=== PATIENT | female | born 1970 | race Caucasian/White ===

== ENCOUNTER 2022-11-29 12:08 | Outpatient (OUT) | payer OTHER, SELFPAY ==
[2022-11-29 12:44] LABS: Basophils Absolute Auto 0.1 10^3/uL (0.0-0.1); Basophils Percent Auto 0.5 % (0.2-2.0); Eosinophils Absolute Auto 0.1 10^3/uL (0.0-0.7); Eosinophils Percent Auto 0.7 % (0.9-7.0); Hematocrit 36.2 % (36.0-48.0); Hemoglobin 11.7 g/dL (12.0-16.0); Immature Granulocytes Abs Auto 0.11 10^3/uL (0.00-0.03); Immature Granulocytes Pct Auto 1.1 % (0.0-0.5); Lymphocytes Absolute Auto 1.8 10^3/uL (1.2-3.8); Lymphocytes Percent Auto 18.5 % (20.5-60.0); Mean Corpuscular HGB Conc 32.3 g/dL (29.9-35.2); Mean Corpuscular Hemoglobin 29.6 pg (26.7-34.0); Mean Corpuscular Volume 91.6 fL (81.0-99.0); Mean Platelet Volume 10.3 fL (9.5-13.5); Monocytes Absolute Auto 0.7 10^3/uL (0.3-0.8); Monocytes Percent Auto 6.8 % (1.7-12.0); Neutrophils Absolute Auto 7.2 10^3/uL (1.4-6.5); Neutrophils Percent Auto 72.4 % (43.0-75.0); Platelet Count 237 10^3/uL (150-450); Red Blood Count 3.95 10^6/uL (4.20-5.40); Red Cell Distribution Width 14.3 % (11.0-15.0)
[2022-11-29 12:46] LABS: Erythrocyte Sedimentation Rate 48 mm/hr (<=30)
[2022-11-30 05:07] LABS: Antistreptolysin O Ab 316.4 IU/mL (0.0-200.0)
== END 2022-11-29 12:09 ==
LOC: LAB 12:13
PROVIDERS: PCP Family Medicine; Visit Provider Family Medicine
DX: R50.9 Fever, unspecified (principal)
CPT/HCPCS: 36415; 85025; 85652; 86060; 87040

== ENCOUNTER 2023-03-02 10:01 | Outpatient (OUT) | payer OTHER, SELFPAY ==
[2023-03-02 10:50] LABS: Basophils Absolute Auto 0.1 10^3/uL (0.0-0.1); Basophils Percent Auto 0.8 % (0.2-2.0); Eosinophils Absolute Auto 0.1 10^3/uL (0.0-0.7); Eosinophils Percent Auto 0.5 % (0.9-7.0); Hematocrit 40.8 % (36.0-48.0); Hemoglobin 12.9 g/dL (12.0-16.0); Immature Granulocytes Abs Auto 0.49 10^3/uL (0.00-0.03); Immature Granulocytes Pct Auto 4.2 % (0.0-0.5); Lymphocytes Absolute Auto 1.5 10^3/uL (1.2-3.8); Lymphocytes Percent Auto 12.6 % (20.5-60.0); Mean Corpuscular HGB Conc 31.6 g/dL (29.9-35.2); Mean Corpuscular Hemoglobin 29.4 pg (26.7-34.0); Mean Corpuscular Volume 92.9 fL (81.0-99.0); Mean Platelet Volume 10.5 fL (9.5-13.5); Monocytes Absolute Auto 0.7 10^3/uL (0.3-0.8); Monocytes Percent Auto 5.8 % (1.7-12.0); Neutrophils Absolute Auto 8.9 10^3/uL (1.4-6.5); Neutrophils Percent Auto 76.1 % (43.0-75.0); Platelet Count 270 10^3/uL (150-450); Red Blood Count 4.39 10^6/uL (4.20-5.40); Red Cell Distribution Width 14.7 % (11.0-15.0); White Blood Count 11.7 10^3/uL (4.0-11.0)
[2023-03-02 10:58] LABS: Partial Thromboplastin Time 24.8 sec (22.3-36.2)
[2023-03-02 11:00] LABS: INR <0.93
[2023-03-02 11:38] LABS: Estimated Average Glucose 114 mg/dL; Glycohemoglobin A1C 5.6 % (4.5-6.2)
[2023-03-02 11:44] LABS: Alanine Aminotransferase 28 U/L (14-59); Albumin Globulin Ratio 0.8; Albumin Level 3.1 g/dL (3.4-5.0); Alkaline Phosphatase 96 U/L (46-116); Aspartate Amino Transferase 10 U/L (15-37); BUN Creatinine Ratio 38.3; Bilirubin Total 0.3 mg/dL (0.2-1.0); C Reactive Protein 1.2 mg/dL (<=1.0); Calcium 9.3 mg/dL (8.5-10.1); Carbon Dioxide 26.8 mmol/L (21.0-32.0); Chloride 104 mmol/L (98-107); Chol HDL Ratio 3.7; Cholesterol 242 mg/dL (<=200); Estimated GFR (African America >60 (>=60); Estimated GFR (Non-African Ame >60 (>=60); Free T3 1.72 pg/mL (2.18-3.98); Globulin 3.7 g/dL; Glucose 106 mg/dL (74-106); HDL Cholesterol 66 mg/dL (40-60); Potassium 3.8 mmol/L (3.5-5.1); Sodium 140 mmol/L (136-145); Thyroid Stimulating Hormone 2.418 uIU/mL (0.358-3.740); Total Protein 6.8 g/dL (6.4-8.2); Triglycerides 107 mg/dL (<=150); VLDL CHOLESTEROL 21.4 mg/dL
[2023-03-03 09:08] LABS: Antistreptolysin O Ab 287.8 IU/mL (0.0-200.0)
[2023-03-03 12:08] LABS: Insulin 30.7 uIU/mL (2.6-24.9)
== END 2023-03-02 10:02 | disposition home or self-care (01) ==
LOC: LAB 10:03
PROVIDERS: PCP Family Medicine; Visit Provider Family Medicine
DX: E78.5 Hyperlipidemia, unspecified (principal); I10 Essential (primary) hypertension; K21.9 Gastro-esophageal reflux disease without esophagitis; R73.09 Other abnormal glucose; D64.9 Anemia, unspecified
CPT/HCPCS: 36415; 80053; 80061; 82306; 83036; 83525; 83540; 84436; 84443; 84481; 85002; 85025; 85610; 85730; 86060; 86140; 87040

== ENCOUNTER 2023-04-27 13:38 | Outpatient (OUT) | payer OTHER, SELFPAY ==
[2023-04-27 14:24] LABS: Basophils Absolute Auto 0.1 10^3/uL (0.0-0.1); Basophils Percent Auto 0.6 % (0.2-2.0); Eosinophils Absolute Auto 0.1 10^3/uL (0.0-0.7); Eosinophils Percent Auto 0.6 % (0.9-7.0); Hematocrit 38.5 % (36.0-48.0); Hemoglobin 12.5 g/dL (12.0-16.0); Immature Granulocytes Abs Auto 0.31 10^3/uL (0.00-0.03); Lymphocytes Absolute Auto 2.1 10^3/uL (1.2-3.8); Lymphocytes Percent Auto 13.5 % (20.5-60.0); Mean Corpuscular HGB Conc 32.5 g/dL (29.9-35.2); Mean Corpuscular Hemoglobin 30.7 pg (26.7-34.0); Mean Corpuscular Volume 94.6 fL (81.0-99.0); Mean Platelet Volume 10.7 fL (9.5-13.5); Monocytes Absolute Auto 0.9 10^3/uL (0.3-0.8); Monocytes Percent Auto 5.8 % (1.7-12.0); Neutrophils Absolute Auto 12.3 10^3/uL (1.4-6.5); Neutrophils Percent Auto 77.5 % (43.0-75.0); Platelet Count 259 10^3/uL (150-450); Red Blood Count 4.07 10^6/uL (4.20-5.40); Red Cell Distribution Width 15.4 % (11.0-15.0); White Blood Count 15.8 10^3/uL (4.0-11.0)
[2023-04-27 14:48] LABS: Alanine Aminotransferase 23 U/L (14-59); Albumin Globulin Ratio 0.9; Albumin Level 3.2 g/dL (3.4-5.0); Alkaline Phosphatase 94 U/L (46-116); Aspartate Amino Transferase 12 U/L (15-37); Bilirubin Direct 0.1 mg/dL (0.0-0.2); Bilirubin Total 0.5 mg/dL (0.2-1.0); Cholesterol 191 mg/dL (<=200); Globulin 3.6 g/dL; HDL Cholesterol 63 mg/dL (40-60); Thyroid Stimulating Hormone 1.597 uIU/mL (0.358-3.740); Total Protein 6.8 g/dL (6.4-8.2); Triglycerides 126 mg/dL (<=150); VLDL CHOLESTEROL 25.2 mg/dL
== END 2023-04-27 13:39 | disposition home or self-care (01) ==
LOC: LAB 13:40
PROVIDERS: PCP Family Medicine; Visit Provider Family Medicine
DX: E78.00 Pure hypercholesterolemia, unspecified (principal); R79.89 Other specified abnormal findings of blood chemistry; R76.8 Other specified abnormal immunological findings in serum; R53.83 Other fatigue
CPT/HCPCS: 36415; 80061; 80076; 84439; 84443; 85025; 86060

== ENCOUNTER 2023-05-23 07:23 | Outpatient (RCR) | payer OTHER, SELFPAY ==
[2023-05-23 14:58] LABS: Erythrocyte Sedimentation Rate 114 mm/hr (<=30)
[2023-05-23 15:03] LABS: Basophils Absolute Auto 0.1 10^3/uL (0.0-0.1); Basophils Percent Auto 0.6 % (0.2-2.0); Eosinophils Absolute Auto 0.1 10^3/uL (0.0-0.7); Eosinophils Percent Auto 0.6 % (0.9-7.0); Hematocrit 45.8 % (36.0-48.0); Hemoglobin 14.8 g/dL (12.0-16.0); Immature Granulocytes Abs Auto 0.48 10^3/uL (0.00-0.03); Immature Granulocytes Pct Auto 2.4 % (0.0-0.5); Lymphocytes Absolute Auto 2.7 10^3/uL (1.2-3.8); Lymphocytes Percent Auto 13.7 % (20.5-60.0); Mean Corpuscular HGB Conc 32.3 g/dL (29.9-35.2); Mean Corpuscular Volume 92.9 fL (81.0-99.0); Mean Platelet Volume 10.8 fL (9.5-13.5); Monocytes Absolute Auto 1.3 10^3/uL (0.3-0.8); Monocytes Percent Auto 6.7 % (1.7-12.0); Neutrophils Absolute Auto 15.2 10^3/uL (1.4-6.5); Platelet Count 336 10^3/uL (150-450); Red Blood Count 4.93 10^6/uL (4.20-5.40); Red Cell Distribution Width 14.6 % (11.0-15.0); White Blood Count 19.9 10^3/uL (4.0-11.0)
[2023-05-23 15:22] LABS: Lactate Dehydrogenase 197 U/L (81-234); Percent Iron Saturation 22.5 %
[2023-05-23 15:23] LABS: C Reactive Protein 1.56 mg/dL (<=0.50)
[2023-05-24 08:15] LABS: Rheumatoid Factor (RF) 10.6 IU/mL (<14.0)
[2023-05-24 11:09] LABS: ANA Direct Negative (Negative)
[2023-05-24 14:08] LABS: Anti-CCP Ab, IgG/IgA 2 units (0-19)
[2023-05-25 18:07] LABS: Cortisol - AM 0.7 ug/dL (6.2-19.4)
[2023-05-26 18:09] LABS: HLA B 27 Disease Association Negative (.)
--- OUTSIDE RECORDS SUMMARY | 2023-06-23 13:28 | XMS_ITS | CCD ---
Author Name Unknown Address [address] [place] [address] Organization [facility] Care Team Providers Care Physician Compensation Analyst Name Role Phone Eleuterio Carranza Primary Care [...] Unavailable HOY ., DR MCCLELLAN Attending Unavailable [place], DR MOISE Diaz Consulting Unavailable Allergies Allergy Classification Reported Allergen(s) Allergy Type Date of Onset Reaction(s) Facility (2 sources) venlafaxine; Translations: [venlafaxine] Drug Allergy Dizziness (finding) General Surgery [place] (1 source) venlafaxine Drug Allergy [facility] Repository Medications Current Medications Medication Drug Class(es) Dates Sig (Normalized) Sig (Original) acetaminophen 325 mg / HYDROcodone bitartrate 5 mg oral tablet (2 sources) Opioid Agonist Start: 03-06-2017 [place] 325 mg-5 mg oral tablet See Instructions, [...] BID, # 20 tab(s), Refills(s) 0, Pharmacy: [facility] Start Date: 07/27/18 Status: Ordered Prilosec [...] 04-01-2022 Chronic Other aftercare (1 source) Other group home (current) drug therapy; Translations: [OTH [employer]ICE CURRENT DRUG THERAPY] Onset: 10-27-2022 Episodic Other [...] PILO ELIAS Date: 2022-10-26 19:03 Normal [facility] CULTURE BLOODon 09-30-2022 Microscopic examination of blood, culture Culture Observations: NO GROWTH AT 5 DAYS. [facility] Comment on above: Performed By: #### T 7, TSH, LIPID, CMP #### [facility] [address] [place] [address] Dr. Sona Cruz Microscopic examination of blood, culture Culture Observations: NO GROWTH AT 5 DAYS. [facility] Comment on above: Performed By: #### T 7, TSH, LIPID, CMP #### [facility] [address] [place] [address] Dr. Sona Cruz CULTURE URINEon 09-30-2022 CULTURE URINE Culture Observations: NO GROWTH. Normal [facility] Comment on above: Performed By: #### T 7, TSH, LIPID, CMP #### [facility] [address] [place] [address] Dr. Sona Cruz UA RANDOM W/MICROSCOPICon BACTERIA NONE SEEN Normal NONE SEEN [facility] Comment on above: Performed By: #### T 7, TSH, LIPID, CMP #### [facility] [address] [place] [address] Dr. Sona Cruz Bilirubin Ql (U) Negative Normal NEGATIVE [facility] Comment on above: Performed By: #### T 7, TSH, LIPID, CMP #### [facility] [address] [place] [address] Dr. Sona Cruz CAST NONE SEEN Normal NONE SEEN [facility] Comment on above: Performed By: #### T 7, TSH, LIPID, CMP #### [facility] [address] [place] [address] Dr. Sona Cruz Clarity (U) CLEAR Normal CLEAR [facility] Comment on above: Performed By: #### T 7, TSH, LIPID, CMP #### [facility] [address] [place] [address] Dr. Sona Cruz Color (U) LT. YELLOW Normal YELLOW [facility] Comment on above: Performed By: #### T 7, TSH, LIPID, CMP #### [facility] [address] [address] [address] Sona Cruz Crystals LM Nom (Urine sed) SEEN Abnormal NONE SEEN [facility] Comment on above: Performed By: #### T 7, TSH, LIPID, CMP #### [facility] [address] [address] [address] Sona Cruz Epithelial cells LM Ql (Urine sed) FEW Abnormal NONE SEEN /RARE [facility] Comment on above: Performed By: #### T 7, TSH, LIPID, CMP #### [facility] [address] [address] [address] Sona Cruz Glucose Ql (U) Negative Normal NEGATIVE [facility] Comment on above: Performed By: #### T 7, TSH, LIPID, CMP #### [facility] [address] [place] [address] Dr. Sona Cruz Hemoglobin Ql (U) Negative Normal NEGATIVE [facility] Comment on above: Performed By: #### T 7, TSH, LIPID, CMP #### [facility] [address] [place] [address] Dr. Sona Cruz Ketones Ql (U) Negative Normal NEGATIVE [facility] Comment on above: Performed By: #### T 7, TSH, LIPID, CMP #### [facility] [address] [place] [address] Dr. Sona Cruz LEUKOCYTES Negative Normal NEGATIVE [facility] Comment on above: Performed By: #### T 7, TSH, LIPID, CMP #### [facility] [address] [address] [address] Sona Cruz MUCOUS NONE SEEN Normal NONE SEEN [facility] Comment on above: Performed By: #### T 7, TSH, LIPID, CMP #### [facility] [address] [place] [address] Dr. Sona Cruz Nitrite Ql (U) Negative Normal NEGATIVE [facility] Comment on above: Performed By: #### T 7, TSH, LIPID, CMP #### [facility] [address] [place] [address] Dr. Sona Cruz pH (U) 5.5 [pH] Normal 5-9 [facility] Comment on above: Performed By: #### T 7, TSH, LIPID, CMP #### [facility] [address] [place] [address] Dr. Sona Cruz RBC 0-2 Normal 0-2 [facility] Comment on above: Performed By: #### T 7, TSH, LIPID, CMP #### [facility] [address] [place] [address] Dr. Sona Cruz SPEC GRAVITY 1.025 Normal 1.005-<=1.025 [facility] Comment on above: Performed By: #### T 7, TSH, LIPID, CMP #### [facility] [address] [place] [address] Dr. Sona Cruz UA PROTEIN Negative Normal NEGATIVE/ TRACE [facility] Comment on above: Performed By: #### T 7, TSH, LIPID, CMP #### [facility] [address] [place] [address] Dr. Sona Cruz Urobilinogen Qn (U) 0.2 {Dayanna'U}/dL Normal 0.2 - 1. 0 [facility] Comment on above: Performed By: #### T 7, TSH, LIPID, CMP #### [facility] [address] [place] [address] Dr. Sona Cruz WBC 0-2 Abnormal NONE SEEN [facility] Comment on above: Performed By: #### T 7, TSH, LIPID, CMP #### [facility] [address] [place] [address] Dr. Sona Cruz VITAMIN B12on 09-30-2022 Cobalamin (Vitamin B12) [Mass/Vol] 383.0 pg/mL Normal 193.0-986.0 [facility] Comment on above: Performed By: #### V ITB12 #### [facility] [address] [place] [address] Dr. Sona Cruz DANIELLE-GARCIA VIRUS (EBV) AB PROFILEon 08-15-2022 EBV Ab VCA, IgG 71.8 U/mL Critically high 0.0-17.9 [facility] Comment on above: Result Comment: Nega tive <18.0 Equivocal 18.0 - 21.9 Positive >21.9 Performed By: #### T 7, TSH, LIPID, CMP #### [facility] [address] [address] [address] Sona Cruz EBV Ab VCA, IgM <36.0 Normal 0.0-35.9 [facility] Comment on above: Result Comment: Nega tive <36.0 Equivocal 36.0 - 43.9 Positive >43.9 Performed By: #### T 7, TSH, LIPID, CMP #### [facility] [address] [address] [address] Sona Cruz EBV Nuclear Antigen Ab, IgG 146.0 U/mL Critically high 0.0-17.9 [facility] Comment on above: Result Comment: Nega tive <18.0 Equivocal 18.0 - 21.9 Positive >21.9 Performed By: #### T 7, TSH, LIPID, CMP #### [facility] [address] [address] [address] Sona Cruz Interpretation: Comment Normal [facility] Comment on above: Result Comment: EBV [...] #### T 7, TSH, LIPID, CMP #### [facility] [address] [place] [address] Dr. Sona Cruz INSULINon 08-13-2022 Insulin 18.5 uIU/mL Normal 2.6-24.9 [facility] Comment on above: Performed By: #### T 7, TSH, LIPID, CMP #### [facility] [address] [address] [address] Sona Cruz CBC AUTO DIFFon 08-12-2022 BASO # 0.1 103/ul Normal 0.0-0.1 [facility] Comment on above: Performed By: #### T 7, TSH, LIPID, CMP #### [facility] [address] [place] [address] Dr. Sona Cruz Basophils/100 WBC (Bld) 0.5 % Normal 0.2-2.0 [facility] Comment on above: Performed By: #### T 7, TSH, LIPID, CMP #### [facility] [address] [place] [address] Dr. Sona Cruz EO # 0.1 103/ul Normal 0.0-0.7 [facility] Comment on above: Performed By: #### T 7, TSH, LIPID, CMP #### [facility] [address] [place] [address] Dr. Sona Cruz Eosinophils/100 WBC (Bld) 0.9 % Normal 0.9-7.0 [facility] Comment on above: Performed By: #### T 7, TSH, LIPID, CMP #### [facility] [address] [place] [address] Dr. Sona Cruz Erythrocyte distribution width (RBC) [Ratio] 14.4 % Normal 11.0-15.0 [facility] Comment on above: Performed By: #### T 7, TSH, LIPID, CMP #### [facility] [address] [place] [address] Dr. Sona Cruz Hematocrit (Bld) [Volume fraction] 41.8 % Normal 36.0-48.0 [facility] Comment on above: Performed By: #### T 7, TSH, LIPID, CMP #### [facility] [address] [place] [address] Dr. Sona Cruz Hemoglobin (Bld) [Mass/Vol] 14.0 g/dL Normal 12.0-16.0 [facility] Comment on above: Performed By: #### T 7, TSH, LIPID, CMP #### [facility] [address] [place] [address] Dr. Sona Cruz IG # 0.12 10e3/ul Critically high 0.00-0.03 [facility] Comment on above: Performed By: #### T 7, TSH, LIPID, CMP #### [facility] [address] [place] [address] Dr. Sona Cruz IG % 1.0 % Critically high 0.0-0.5 [facility] Comment on above: Performed By: #### T 7, TSH, LIPID, CMP #### [facility] [address] [place] [address] Dr. Sona Cruz LYMPH # 1.8 103/ul Normal 1.2-3.8 [facility] Comment on above: Performed By: #### T 7, TSH, LIPID, CMP #### [facility] [address] [place] [address] Dr. Sona Cruz Lymphocytes/100 WBC (Bld) 14.4 % Critically low 20.5-60.0 [facility] Comment on above: Performed By: #### T 7, TSH, LIPID, CMP #### [facility] [address] [place] [address] Dr. Sona Cruz MANUAL DIFF REQ NO Normal [facility] Comment on above: Performed By: #### T 7, TSH, LIPID, CMP #### [facility] [address] [place] [address] Dr. Sona Cruz MCH (RBC) [Entitic mass] 30.0 pg Normal 26.7-34.0 [facility] Comment on above: Performed By: #### T 7, TSH, LIPID, CMP #### [facility] [address] [place] [address] Dr. Sona Cruz MCHC (RBC) [Mass/Vol] 33.5 g/dL Normal 29.9-35.2 [facility] Comment on above: Performed By: #### T 7, TSH, LIPID, CMP #### [facility] [address] [place] [address] Dr. Sona Cruz MCV (RBC) [Entitic vol] 89.5 fL Normal 81.0-99.0 [facility] Comment on above: Performed By: #### T 7, TSH, LIPID, CMP #### [facility] [address] [place] [address] Dr. Sona Cruz MONO # 0.8 103/ul Normal 0.3-0.8 [facility] Comment on above: Performed By: #### T 7, TSH, LIPID, CMP #### [facility] [address] [address] [address] Sona Cruz Monocytes/100 WBC (Bld) 6.6 % Normal 1.7-12.0 [facility] Comment on above: Performed By: #### T 7, TSH, LIPID, CMP #### [facility] [address] [address] [address] Sona Cruz NEUT # 9.5 103/ul Critically high 1.4-6.5 [facility] Comment on above: Performed By: #### T 7, TSH, LIPID, CMP #### [facility] [address] [address] [address] Sona Cruz Neutrophils/100 WBC (Bld) 76.6 % Critically high 43.0-75.0 [facility] Comment on above: Performed By: #### T 7, TSH, LIPID, CMP #### [facility] [address] [place] [address] Dr. Sona Cruz Platelet mean volume (Bld) [Entitic vol] 10.5 fL Normal 9.5-13.5 [facility] Comment on above: Performed By: #### T 7, TSH, LIPID, CMP #### [facility] [address] [address] [address] Sona Cruz PLT 261 103/ul Normal 150-450 [facility] Comment on above: Performed By: #### T 7, TSH, LIPID, CMP #### [facility] [address] [place] [address] Dr. Sona Cruz RBC 4.67 106/ul Normal 4.20-5.40 [facility] Comment on above: Performed By: #### T 7, TSH, LIPID, CMP #### [facility] [address] [place] [address] Dr. Sona Cruz WBC 12.4 103/ul Critically high 4.0-11.0 [facility] Comment on above: Performed By: #### T 7, TSH, LIPID, CMP #### [facility] [address] [address] [address] Sona Cruz CULTURE BLOODon 08-12-2022 Microscopic examination of blood, culture Culture Observations: NO GROWTH AT 5 DAYS. Isolate 1 BC_BA_NA Normal [facility] Comment on above: Performed By: #### T 7, TSH, LIPID, CMP #### [facility] [address] [address] [address] Sona Cruz Microscopic examination of blood, culture Culture Observations: NO GROWTH AT 5 DAYS. Isolate 1 BC_BA_NA Normal [facility] Comment on above: Performed By: #### T 7, TSH, LIPID, CMP #### [facility] [address] [place] [address] Dr. Sona Cruz CULTURE URINEon 08-12-2022 CULTURE URINE Culture Observations: NO GROWTH. Normal [facility] Comment on above: Performed By: #### U RCX #### [facility] [address] [place] [address] Dr. Sona Cruz FREE THYROXINE INDEX T7on FTI 3.65 Normal 1.30-4.50 [facility] Comment on above: Performed By: #### T 7, TSH, LIPID, CMP #### [facility] [address] [place] [address] Dr. Sona Cruz T3U 38.0 % Normal 30.0-39.0 [facility] Comment on above: Performed By: #### T 7, TSH, LIPID, CMP #### [facility] [address] [place] [address] Dr. Sona Cruz T4 [Mass/Vol] 9.60 ug/dL Normal 4.80-13.90 [facility] Comment on above: Performed By: #### T 7, TSH, LIPID, CMP #### [facility] [address] [place] [address] Dr. Sona Cruz GLYCOHEMOGLOBIN A1Con 2022 ADA RECOMMENDATION SEE BELOW Normal [facility] [facility] Comment on above: Result Comment: ADA RECOMMENDED LIMIT 4.0 - 6.0 ADA THERAPEUTIC TARGET < 7.0 ACTION SUGGESTED > 7.0 Performed By: #### T 7, TSH, LIPID, CMP #### [facility] [address] [place] [address] Dr. Sona Cruz Glucose [Mass/Vol] 111 mg/dL Normal [facility] Comment on above: Performed By: #### T 7, TSH, LIPID, CMP #### [facility] [address] [address] [address] Sona Cruz HbA1c (Bld) [Mass fraction] 5.5 % Normal 4.5-6.2 [facility] Comment on above: Performed By: #### T 7, TSH, LIPID, CMP #### [facility] [address] [place] [address] Dr. Sona Cruz IRONon 08-12-2022 Iron [Mass/Vol] 71.0 ug/dL Normal 50.0-170.0 [facility] Comment on above: Performed By: #### T 7, TSH, LIPID, CMP #### [facility] [address] [place] [address] Dr. Sona Cruz LIPID PROFILEon 08-12-2022 CHOL-HDL RATIO NORM SEE BELOW Normal [facility] Comment on above: Result Comment: 3.3 - 4.4 LOW RISK 4.4 - 7.1 AVERAGE RISK 7.1 - 11.0 MODERATE RISK >11.0 HIGH RISK Performed By: #### T 7, TSH, LIPID, CMP #### [facility] [address] [place] [address] Dr. Sona Cruz Cholesterol [Mass/Vol] 216 mg/dL Critically high <=200 [facility] Comment on above: Performed By: #### T 7, TSH, LIPID, CMP #### [facility] [address] [place] [address] Dr. Sona Cruz Cholesterol in HDL [Mass/Vol] 64 mg/dL Critically high 40-60 [facility] Comment on above: Performed By: #### T 7, TSH, LIPID, CMP #### [facility] [address] [place] [address] Dr. Sona Cruz Cholesterol in LDL [Mass/Vol] 132.4 mg/dL Normal [facility] Comment on above: Performed By: #### T 7, TSH, LIPID, CMP #### [facility] [address] [place] [address] Dr. Sona Cruz Cholesterol.total/Cho lesterol in HDL [Mass ratio] 3.4 {ratio} Normal [facility] Comment on above: Performed By: #### T 7, TSH, LIPID, CMP #### [facility] [address] [address] [address] Sona Cruz HDL NORMAL > or = 60 mg/dl - LOW CARDIOVASCULAR RISK <40 mg/dl - HIGH CARDIOVASCULAR RISK Normal [facility] Comment on above: Performed By: #### T 7, TSH, LIPID, CMP #### [facility] [address] [place] [address] Dr. Sona Cruz LDL CALC NORMAL SEE BELOW Normal [facility] Comment on above: Result Comment: <100 mg/dl OPTIMAL 100 - 129 mg/dl NEAR OR ABOVE OPTIMAL 130 - 159 mg/dl BORDERLINE HIGH 160 - 189 mg/dl HIGH >190 mg/dl VERY HIGH Performed By: #### T 7, TSH, LIPID, CMP #### [facility] [address] [place] [address] Dr. Sona Cruz Triglyceride [Mass/Vol] 98 mg/dL Normal <=150 [facility] Comment on above: Performed By: #### T 7, TSH, LIPID, CMP #### [facility] [address] [address] [address] Sona Cruz VLDL CALC 19.6 mg/dL Normal [facility] Comment on above: Performed By: #### T 7, TSH, LIPID, CMP #### [facility] [address] [address] [address] Sona Cruz MONOon 08-12-2022 Monocytes (Bld) [#/Vol] Negative Normal NEGATIVE [facility] Comment on above: Performed By: #### I MADDI #### [facility] [address] [place] [address] Dr. Sona Cruz PROF 14(COMP METB)on 03-03-2 023 Albumin [Mass/Vol] 3.9 g/dL Normal 3.4-5.0 [facility] Comment on above: Performed By: #### T 7, TSH, LIPID, CMP #### [facility] [address] [place] [address] Dr. Sona Cruz Albumin/Globulin [Mass ratio] 1.1 {ratio} Normal [facility] Comment on above: Performed By: #### T 7, TSH, LIPID, CMP #### [facility] [address] [place] [address] Dr. Sona Cruz ALP [Catalytic activity/Vol] 106 U/L Normal 46-116 [facility] Comment on above: Performed By: #### T 7, TSH, LIPID, CMP #### [facility] [address] [place] [address] Dr. Sona Cruz ALT [Catalytic activity/Vol] 22 U/L Normal 14-59 [facility] Comment on above: Performed By: #### T 7, TSH, LIPID, CMP #### [facility] [address] [place] [address] Dr. Sona Cruz Anion gap [Moles/Vol] 12.5 mmol/L Normal [facility] Comment on above: Performed By: #### T 7, TSH, LIPID, CMP #### [facility] [address] [place] [address] Dr. Sona Cruz AST [Catalytic activity/Vol] 15 U/L Normal 15-37 [facility] Comment on above: Performed By: #### T 7, TSH, LIPID, CMP #### [facility] [address] [place] [address] Dr. Sona Cruz Bilirubin [Mass/Vol] 0.5 mg/dL Normal 0.2-1.0 [facility] Comment on above: Performed By: #### T 7, TSH, LIPID, CMP #### [facility] [address] [place] [address] Dr. Sona Cruz Calcium [Mass/Vol] 9.6 mg/dL Normal 8.5-10.1 [facility] Comment on above: Performed By: #### T 7, TSH, LIPID, CMP #### [facility] [address] [address] [address] Sona Cruz Chloride [Moles/Vol] 102 mmol/L Normal 98-107 [facility] Comment on above: Performed By: #### T 7, TSH, LIPID, CMP #### [facility] [address] [address] [address] Sona Cruz CO2 [Moles/Vol] 28.3 mmol/L Normal 21.0-32.0 [facility] Comment on above: Performed By: #### T 7, TSH, LIPID, CMP #### [facility] [address] [address] [address] Sona Cruz Creatinine [Mass/Vol] 0.62 mg/dL Normal 0.55-1.02 [facility] Comment on above: Performed By: #### T 7, TSH, LIPID, CMP #### [facility] [address] [address] [address] Sona Cruz EGFR-AF DJIBOUTIAN >60 Normal >=60 [facility] Comment on above: Performed By: #### T 7, TSH, LIPID, CMP #### [facility] [address] [address] [address] Sona Cruz EGFR-NON AF DJIBOUTIAN >60 Normal >=60 [facility] Comment on above: Performed By: #### T 7, TSH, LIPID, CMP #### [facility] [address] [address] [address] Sona Cruz Globulin (S) [Mass/Vol] 3.7 g/dL Normal [facility] Comment on above: Performed By: #### T 7, TSH, LIPID, CMP #### [facility] [address] [address] [address] Sona Cruz Glucose [Mass/Vol] 106 mg/dL Normal 74-106 [facility] Comment on above: Performed By: #### T 7, TSH, LIPID, CMP #### [facility] [address] [address] [address] Sona Cruz Potassium [Moles/Vol] 3.8 mmol/L Normal 3.5-5.1 [facility] Comment on above: Performed By: #### T 7, TSH, LIPID, CMP #### [facility] [address] [address] [address] Sona Cruz Protein [Mass/Vol] 7.6 g/dL Normal 6.4-8.2 [facility] Comment on above: Performed By: #### T 7, TSH, LIPID, CMP #### [facility] [address] [address] [address] Sona Cruz Sodium [Moles/Vol] 139 mmol/L Normal 136-145 [facility] Comment on above: Performed By: #### T 7, TSH, LIPID, CMP #### [facility] [address] [place] [address] Dr. Sona Cruz Urea nitrogen [Mass/Vol] 25.0 mg/dL Critically high 7.0-18.0 [facility] Comment on above: Performed By: #### T 7, TSH, LIPID, CMP #### [facility] [address] [place] [address] Dr. Sona Cruz Urea nitrogen/Creatinine [Mass ratio] 40.3 mg/mg Normal [facility] Comment on above: Performed By: #### T 7, TSH, LIPID, CMP #### [facility] [address] [place] [address] Dr. Sona Cruz PROTIMEon 08-12-2022 INR Coag (PPP) [Relative time] {INR} Normal [facility] Comment on above: Performed By: #### T 7, TSH, LIPID, CMP #### [facility] [address] [place] [address] Dr. Sona Cruz INR GUIDELINES SEE BELOW Normal [facility] Comment on above: Result Comment: CAROL RED INR: 2.0 - 3.0 CONDITIONS NOT LISTED BELOW 2.5 - 3.5 FOR PROSTHETIC HEART VALVE REPLACEMENT 2.5 - 3.5 RECURRENT THROMBOSIS Performed By: #### T 7, TSH, LIPID, CMP #### [facility] [address] [place] [address] Dr. Sona Cruz PT Coag (PPP) [Time] 9.7 s Normal 9.0-11.6 [facility] Comment on above: Performed By: #### T 7, TSH, LIPID, CMP #### [facility] [address] [place] [address] Dr. Sona Cruz PTTon 08-12-2022 aPTT Coag (Bld) [Time] 27.1 s Normal 22.3-36.2 The [facility] Comment on above: Performed By: #### T 7, TSH, LIPID, CMP #### [facility] [address] [place] [address] Dr. Sona Cruz SED RATE WESTERGREN 2022 SED RATE 47 mm/hr Critically high <=30 The [facility] Comment on above: Performed By: #### T 7, TSH, LIPID, CMP #### [facility] [address] [place] [address] Dr. Sona Cruz TSHon 08-12-2022 TSH 2.474 uIU/mL Normal 0.358-3.740 The [facility] Comment on above: Performed By: #### T 7, TSH, LIPID, CMP #### [facility] [address] [place] [address] Dr. Sona Cruz UA RANDOM W/MICROSCOPICon BACTERIA NONE SEEN Normal NONE SEEN [facility] Comment on above: Performed By: #### T 7, TSH, LIPID, CMP #### [facility] [address] [place] [address] Dr. Sona Cruz Bilirubin Ql (U) Negative Normal NEGATIVE The [facility] Comment on above: Performed By: #### T 7, TSH, LIPID, CMP #### [facility] [address] [place] [address] Dr. Sona Cruz CAST NONE SEEN Normal NONE SEEN The [facility] Comment on above: Performed By: #### T 7, TSH, LIPID, CMP #### [facility] [address] [place] [address] Dr. Sona Cruz Clarity (U) CLEAR Normal CLEAR The [facility] Comment on above: Performed By: #### T 7, TSH, LIPID, CMP #### [facility] [address] [address] [address] Sona Cruz Color (U) YELLOW Normal YELLOW The [facility] Comment on above: Performed By: #### T 7, TSH, LIPID, CMP #### [facility] [address] [address] [address] Sona Cruz Crystals LM Nom (Urine sed) NONE SEEN Normal NONE SEEN [facility] Comment on above: Performed By: #### T 7, TSH, LIPID, CMP #### [facility] [address] [address] [address] Sona Cruz Epithelial cells LM Ql (Urine sed) NONE SEEN Normal NONE SEEN /RARE The [facility] Comment on above: Performed By: #### T 7, TSH, LIPID, CMP #### [facility] [address] [place] [address] Dr. Sona Cruz Glucose Ql (U) Negative Normal NEGATIVE The [facility] Comment on above: Performed By: #### T 7, TSH, LIPID, CMP #### [facility] [address] [place] [address] Dr. Sona Cruz Hemoglobin Ql (U) Negative Normal NEGATIVE [facility] Comment on above: Performed By: #### T 7, TSH, LIPID, CMP #### [facility] [address] [place] [address] Dr. Sona Cruz Ketones Ql (U) Negative Normal NEGATIVE The [facility] Comment on above: Performed By: #### T 7, TSH, LIPID, CMP #### [facility] [address] [place] [address] Dr. Sona Cruz LEUKOCYTES Negative Normal NEGATIVE [facility] Comment on above: Performed By: #### T 7, TSH, LIPID, CMP #### [facility] [address] [place] [address] Dr. Sona Cruz MUCOUS NONE SEEN Normal NONE SEEN [facility] Comment on above: Performed By: #### T 7, TSH, LIPID, CMP #### [facility] [address] [place] [address] Dr. Sona Cruz Nitrite Ql (U) Negative Normal NEGATIVE The [facility] Comment on above: Performed By: #### T 7, TSH, LIPID, CMP #### [facility] [address] [place] [address] Dr. Sona Cruz pH (U) 6.0 [pH] Normal 5-9 [facility] Comment on above: Performed By: #### T 7, TSH, LIPID, CMP #### [facility] [address] [place] [address] Dr. Sona Cruz RBC 0-2 Normal 0-2 [facility] Comment on above: Performed By: #### T 7, TSH, LIPID, CMP #### [facility] [address] [address] [address] Sona Cruz SPEC GRAVITY 1.010 Normal 1.005-<=1.025 [facility] Comment on above: Performed By: #### T 7, TSH, LIPID, CMP #### [facility] [address] [place] [address] Dr. Sona Cruz UA PROTEIN Negative Normal NEGATIVE/ TRACE [facility] Comment on above: Performed By: #### T 7, TSH, LIPID, CMP #### [facility] [address] [place] [address] Dr. Sona Cruz Urobilinogen Qn (U) 0.2 {Dayanna'U}/dL Normal 0.2 - 1. 0 [facility] Comment on above: Performed By: #### T 7, TSH, LIPID, CMP #### [facility] [address] [place] [address] Dr. Sona Cruz WBC NONE SEEN Normal NONE SEEN The [facility] Comment on above: Performed By: #### T 7, TSH, LIPID, CMP #### [facility] [address] [place] [address] Dr. Sona Cruz VITAMIN B12on 08-12-2022 Cobalamin (Vitamin B12) [Mass/Vol] 542.0 pg/mL Normal 193.0-986.0 [facility] Comment on above: Performed By: #### T 7, TSH, LIPID, CMP #### [facility] [address] [place] [address] Dr. Sona Cruz VITAMIN D 25 OHon 08-12-2022 VIT D 25-OH 23.3 ng/mL Normal The [facility] Comment on above: Performed By: #### T 7, TSH, LIPID, CMP #### [facility] [address] [place], [place] [address] Dr. Sona Cruz VIT D RANGES SEE BELOW Normal [facility] Comment on above: Result Comment: <20 ng/mL Vit D deficient 20 - <30 ng/mL Vit D insufficient 30 - 100 ng/mL Vit D sufficient >100 ng/mL Potential Toxicity Performed By: #### T 7, TSH, LIPID, CMP #### [facility] [address] [place], [place] [address] Dr. Sona Cruz Ambulatory Visit Summaryon 0 [...] Sleep apnea Tubular adenoma of colon Normal [facility] General Surgery Office/Clini c Noteon 07-08-2022 General [...] inactivated - Not Given Patient Refuses Normal [facility] Comment on above: Result Comment: Elec tronically Signed By: QI ARGUETA, Vinod Neri\Date and Time Signed: 07/08/22 14:16 EST Reminderson 07-08-2022 Reminders - From: Gracia Rodas LPN To: N - Clinical; Sent: 07/08/2022 14:13:55 EST Show up: 05/22/2027 07:00:00 EST Subject: colonoscopy recall Due Date/Time: 06/22/2027 07:00:00 EST Reminder/Recall Patient is due for colonoscopy 06/22/2027 due to history of tubular adenoma. Normal [facility] Pathology Noteon 06-24-2022 Pathology Note [id number] #1.00CD:127 Normal [facility] Outside Colonoscopyon 2022 Outside Colonoscopy [id number] #1.00CD:127 Normal [facility] Lab Reportson 06-20-2022 Lab Reports [id number] #1.00CD:127 Normal [facility] ANTISTREPTOLYSIN O AB (ASO)o n 06-18-2022 Antistreptolysin O Ab 561.7 IU/mL Critically high 0.0-200. 0 The [facility] Comment on above: Performed By: #### T 7, TSH, LIPID, CMP #### [facility] [address] [place] [address] Dr. Sona Cruz INSULINon 06-18-2022 Insulin 11.2 uIU/mL Normal 2.6-24.9 The [facility] Comment on above: Performed By: #### T 7, TSH, LIPID, CMP #### [facility] [address] [place] [address] Dr. Sona Cruz CBC AUTO DIFFon 06-17-2022 BASO # 0.1 103/ul Normal 0.0-0.1 The [facility] Comment on above: Performed By: #### T 7, TSH, LIPID, CMP #### [facility] [address] [place] [address] Dr. Sona Cruz Basophils/100 WBC (Bld) 0.6 % Normal 0.2-2.0 [facility] Comment on above: Performed By: #### T 7, TSH, LIPID, CMP #### [facility] [address] [place] [address] Dr. Sona Cruz EO # 0.2 103/ul Normal 0.0-0.7 [facility] Comment on above: Performed By: #### T 7, TSH, LIPID, CMP #### [facility] [address] [place] [address] Dr. Sona Cruz Eosinophils/100 WBC (Bld) 1.8 % Normal 0.9-7.0 [facility] Comment on above: Performed By: #### T 7, TSH, LIPID, CMP #### [facility] [address] [place] [address] Dr. Sona Cruz Erythrocyte distribution width (RBC) [Ratio] 15.3 % Critically high 11.0-15.0 [facility] Comment on above: Performed By: #### T 7, TSH, LIPID, CMP #### [facility] [address] [place] [address] Dr. Sona Cruz Hematocrit (Bld) [Volume fraction] 39.1 % Normal 36.0-48.0 [facility] Comment on above: Performed By: #### T 7, TSH, LIPID, CMP #### [facility] [address] [place] [address] Dr. Sona Cruz Hemoglobin (Bld) [Mass/Vol] 12.7 g/dL Normal 12.0-16.0 [facility] Comment on above: Performed By: #### T 7, TSH, LIPID, CMP #### [facility] [address] [place] [address] Dr. Sona Cruz IG # 0.15 10e3/ul Critically high 0.00-0.03 [facility] Comment on above: Performed By: #### T 7, TSH, LIPID, CMP #### [facility] [address] [place] [address] Dr. Sona Cruz IG % 1.3 % Critically high 0.0-0.5 [facility] Comment on above: Performed By: #### T 7, TSH, LIPID, CMP #### [facility] [address] [place] [address] Dr. Sona Cruz LYMPH # 2.0 103/ul Normal 1.2-3.8 The [facility] Comment on above: Performed By: #### T 7, TSH, LIPID, CMP #### [facility] [address] [place] [address] Dr. Sona Cruz Lymphocytes/100 WBC (Bld) 16.3 % Critically low 20.5-60.0 The [facility] Comment on above: Performed By: #### T 7, TSH, LIPID, CMP #### [facility] [address] [place] [address] Dr. Sona Cruz MANUAL DIFF REQ NO Normal The [facility] Comment on above: Performed By: #### T 7, TSH, LIPID, CMP #### [facility] [address] [place] [address] Dr. Sona Cruz MCH (RBC) [Entitic mass] 28.7 pg Normal 26.7-34.0 The [facility] Comment on above: Performed By: #### T 7, TSH, LIPID, CMP #### [facility] [address] [place] [address] Dr. Sona Cruz MCHC (RBC) [Mass/Vol] 32.5 g/dL Normal 29.9-35.2 The [facility] Comment on above: Performed By: #### T 7, TSH, LIPID, CMP #### [facility] [address] [place] [address] Dr. Sona rCuz MCV (RBC) [Entitic vol] 88.3 fL Normal 81.0-99.0 [facility] Comment on above: Performed By: #### T 7, TSH, LIPID, CMP #### [facility] [address] [place] [address] Dr. Sona Cruz MONO # 0.8 103/ul Normal 0.3-0.8 The [facility] Comment on above: Performed By: #### T 7, TSH, LIPID, CMP #### [facility] [address] [place] [address] Dr. Sona Cruz Monocytes/100 WBC (Bld) 6.4 % Normal 1.7-12.0 The [facility] Comment on above: Performed By: #### T 7, TSH, LIPID, CMP #### [facility] [address] [place] [address] Dr. Sona Cruz NEUT # 8.8 103/ul Critically high 1.4-6.5 [facility] Comment on above: Performed By: #### T 7, TSH, LIPID, CMP #### [facility] [address] [place] [address] Dr. Sona Cruz Neutrophils/100 WBC (Bld) 73.6 % Normal 43.0-75.0 [facility] Comment on above: Performed By: #### T 7, TSH, LIPID, CMP #### [facility] [address] [place] [address] Dr. Sona Cruz Platelet mean volume (Bld) [Entitic vol] 10.3 fL Normal 9.5-13.5 [facility] Comment on above: Performed By: #### T 7, TSH, LIPID, CMP #### [facility] [address] [place] [address] Dr. Sona Cruz PLT 289 103/ul Normal 150-450 [facility] Comment on above: Performed By: #### T 7, TSH, LIPID, CMP #### [facility] [address] [place] [address] Dr. Sona Cruz RBC 4.43 106/ul Normal 4.20-5.40 [facility] Comment on above: Performed By: #### T 7, TSH, LIPID, CMP #### [facility] [address] [place] [address] Dr. Sona Cruz WBC 12.0 103/ul Critically high 4.0-11.0 The [facility] Comment on above: Performed By: #### T 7, TSH, LIPID, CMP #### [facility] [address] [place] [address] Dr. Sona Cruz CULTURE URINEon 06-17-2022 CULTURE URINE Culture Observations: MODERATE GROWTH OF MIXED GENITAL DESI. NO POTENTIAL PATHOGENS SEEN. Normal The [facility] Comment on above: Performed By: #### U RCX #### [facility] [address] [place] [address] Dr. Sona Cruz Covid-19 PCR ([facility])on SARS-CoV-2 (COVID-19) RNA PAVAN+probe Ql (Unsp spec) Not detected Normal NOT DETECTED The [facility] Comment on above: Result Comment: This test is not yet approved or cleared by the [place] FDA. When there are no FDA-approved or cleared tests available, and other criteria are met, FDA can make tests available under an emergency access mechanism called an Emergency Use Authorization (EUA). The EUA for this test is supported by the [employer]oving [employer] Operator of Health and Human Service's (HHS's) declaration [...] #### T 7, TSH, LIPID, CMP #### [facility] [address] [place] [address] Dr. Sona Cruz FREE THYROXINE INDEX T7on FTI 2.89 Normal 1.30-4.50 The [facility] Comment on above: Performed By: #### I MADDI #### [facility] [address] [place] [address] Dr. Sona Cruz T3U 34.0 % Normal 30.0-39.0 [facility] Comment on above: Performed By: #### I MADDI #### [facility] [address] [place] [address] Dr. Sona Cruz T4 [Mass/Vol] 8.50 ug/dL Normal 4.80-13.90 [facility] Comment on above: Performed By: #### I MADDI #### [facility] [address] [place] [address] Dr. Sona Cruz GLYCOHEMOGLOBIN A1Con 2022 ADA RECOMMENDATION SEE BELOW Normal The [facility] [facility] Comment on above: Result Comment: ADA RECOMMENDED LIMIT 4.0 - 6.0 ADA THERAPEUTIC TARGET < 7.0 ACTION SUGGESTED > 7.0 Performed By: #### T 7, TSH, LIPID, CMP #### [facility] [address] [address] [address] Sona Cruz Glucose [Mass/Vol] 114 mg/dL Normal [facility] Comment on above: Performed By: #### T 7, TSH, LIPID, CMP #### [facility] [address] [address] [address] Sona Cruz HbA1c (Bld) [Mass fraction] 5.6 % Normal 4.5-6.2 [facility] Comment on above: Performed By: #### T 7, TSH, LIPID, CMP #### [facility] [address] [address] [address] Sona Cruz IRONon 06-17-2022 Iron [Mass/Vol] 50.0 ug/dL Normal 50.0-170.0 [facility] Comment on above: Performed By: #### I MADDI #### [facility] [address] [place] [address] Dr. Sona Cruz LIPID PROFILEon 06-17-2022 CHOL-HDL RATIO NORM SEE BELOW Normal [facility] Comment on above: Result Comment: 3.3 - 4.4 LOW RISK 4.4 - 7.1 AVERAGE RISK 7.1 - 11.0 MODERATE RISK >11.0 HIGH RISK Performed By: #### I MADDI #### [facility] [address] [address] [address] Sona Cruz Cholesterol [Mass/Vol] 203 mg/dL Critically high <=200 [facility] Comment on above: Performed By: #### I MADDI #### [facility] [address] [place] [address] Dr. Sona Cruz Cholesterol in HDL [Mass/Vol] 74 mg/dL Critically high 40-60 [facility] Comment on above: Performed By: #### I MADDI #### [facility] [address] [address] [address] Sona Cruz Cholesterol in LDL [Mass/Vol] 112.4 mg/dL Normal [facility] Comment on above: Performed By: #### I MADDI #### [facility] [address] [address] [address] Sona Cruz Cholesterol.total/Cho lesterol in HDL [Mass ratio] 2.7 {ratio} Normal [facility] Comment on above: Performed By: #### I MADDI #### [facility] [address] [address] [address] Sona Cruz HDL NORMAL > or = 60 mg/dl - LOW CARDIOVASCULAR RISK <40 mg/dl - HIGH CARDIOVASCULAR RISK Normal [facility] Comment on above: Performed By: #### I MADDI #### [facility] [address] [address] [address] Sona Cruz LDL CALC NORMAL SEE BELOW Normal [facility] Comment on above: Result Comment: <100 mg/dl OPTIMAL 100 - 129 mg/dl NEAR OR ABOVE OPTIMAL 130 - 159 mg/dl BORDERLINE HIGH 160 - 189 mg/dl HIGH >190 mg/dl VERY HIGH Performed By: #### I MADDI #### [facility] [address] [address] [address] Sona Cruz Triglyceride [Mass/Vol] 83 mg/dL Normal <=150 [facility] Comment on above: Performed By: #### I MADDI #### [facility] [address] [address] [address] Sona Cruz VLDL CALC 16.6 mg/dL Normal [facility] Comment on above: Performed By: #### I MADDI #### [facility] [address] [address] [address] Sona Cruz PROF 14(COMP METB)on 023 Albumin [Mass/Vol] 3.5 g/dL Normal 3.4-5.0 [facility] Comment on above: Performed By: #### I MADDI #### [facility] [address] [place] [address] Dr. Sona Cruz Albumin/Globulin [Mass ratio] 0.9 {ratio} Normal [facility] Comment on above: Performed By: #### I MADDI #### [facility] [address] [address] [address] Sona Cruz ALP [Catalytic activity/Vol] 105 U/L Normal 46-116 [facility] Comment on above: Performed By: #### I MADDI #### [facility] [address] [address] [address] Sona Cruz ALT [Catalytic activity/Vol] 18 U/L Normal 14-59 [facility] Comment on above: Performed By: #### I MADDI #### [facility] [address] [address] [address] Sona Cruz Anion gap [Moles/Vol] 10.8 mmol/L Normal Th e [facility] Comment on above: Performed By: #### I MADDI #### [facility] [address] [place] [address] Dr. Sona Cruz AST [Catalytic activity/Vol] 16 U/L Normal 15-37 [facility] Comment on above: Performed By: #### I MADDI #### [facility] [address] [place] [address] Dr. Sona Cruz Bilirubin [Mass/Vol] 0.4 mg/dL Normal 0.2-1.0 [facility] Comment on above: Performed By: #### I MADDI #### [facility] [address] [place] [address] Dr. Sona Cruz Calcium [Mass/Vol] 9.2 mg/dL Normal 8.5-10.1 [facility] Comment on above: Performed By: #### I MADDI #### [facility] [address] [place] [address] Dr. Sona Cruz Chloride [Moles/Vol] 101 mmol/L Normal 98-107 [facility] Comment on above: Performed By: #### I MADDI #### [facility] [address] [place] [address] Dr. Sona Cruz CO2 [Moles/Vol] 31.4 mmol/L Normal 21.0-32.0 [facility] Comment on above: Performed By: #### I MADDI #### [facility] [address] [address] [address] Sona Cruz Creatinine [Mass/Vol] 0.64 mg/dL Normal 0.55-1.02 [facility] Comment on above: Performed By: #### I MADDI #### [facility] [address] [address] [address] Sona Cruz EGFR-AF DJIBOUTIAN >60 Normal >=60 The [facility] Comment on above: Performed By: #### I MADDI #### [facility] [address] [address] [address] Sona Cruz EGFR-NON AF DJIBOUTIAN >60 Normal >=60 [facility] Comment on above: Performed By: #### I MADDI #### [facility] [address] [place] [address] Dr. Sona Cruz Globulin (S) [Mass/Vol] 3.9 g/dL Normal [facility] Comment on above: Performed By: #### I MADDI #### [facility] [address] [place] [address] Dr. Sona Cruz Glucose [Mass/Vol] 97 mg/dL Normal 74-106 [facility] Comment on above: Performed By: #### I MADDI #### [facility] [address] [place] [address] Dr. Sona Cruz Potassium [Moles/Vol] 4.2 mmol/L Normal 3.5-5.1 [facility] Comment on above: Performed By: #### I MADDI #### [facility] [address] [place] [address] Dr. Sona Cruz Protein [Mass/Vol] 7.4 g/dL Normal 6.4-8.2 [facility] Comment on above: Performed By: #### I MADDI #### [facility] [address] [place] [address] Dr. Sona Cruz Sodium [Moles/Vol] 139 mmol/L Normal 136-145 [facility] Comment on above: Performed By: #### I MADDI #### [facility] [address] [place] [address] Dr. Sona Cruz Urea nitrogen [Mass/Vol] 21.0 mg/dL Critically high 7.0-18.0 [facility] Comment on above: Performed By: #### I MADDI #### [facility] [address] [place] [address] Dr. Sona Cruz Urea nitrogen/Creatinine [Mass ratio] 32.8 mg/mg Normal [facility] Comment on above: Performed By: #### I MADDI #### [facility] [address] [place] [address] Dr. Sona Cruz TSHon 06-17-2022 TSH 2.478 uIU/mL Normal 0.358-3.740 [facility] Comment on above: Performed By: #### I MADDI #### [facility] [address] [place] [address] Dr. Sona Cruz UA RANDOM W/MICROSCOPICon BACTERIA NONE SEEN Normal NONE SEEN [facility] Comment on above: Performed By: #### T 7, TSH, LIPID, CMP #### [facility] [address] [place] [address] Dr. Sona Cruz Bilirubin Ql (U) Negative Normal NEGATIVE The [facility] Comment on above: Performed By: #### T 7, TSH, LIPID, CMP #### [facility] [address] [place] [address] Dr. Sona Cruz CAST NONE SEEN Normal NONE SEEN [facility] Comment on above: Performed By: #### T 7, TSH, LIPID, CMP #### [facility] [address] [place] [address] Dr. Sona Crzu Clarity (U) CLEAR Normal CLEAR The [facility] Comment on above: Performed By: #### T 7, TSH, LIPID, CMP #### [facility] [address] [place] [address] Dr. Sona Cruz Color (U) LT. YELLOW Normal YELLOW The [facility] Comment on above: Performed By: #### T 7, TSH, LIPID, CMP #### [facility] [address] [place] [address] Dr. Sona Cruz Crystals LM Nom (Urine sed) NONE SEEN Normal NONE SEEN [facility] Comment on above: Performed By: #### T 7, TSH, LIPID, CMP #### [facility] [address] [address] [address] Sona Cruz Epithelial cells LM Ql (Urine sed) FEW Abnormal NONE SEEN /RARE [facility] Comment on above: Performed By: #### T 7, TSH, LIPID, CMP #### [facility] [address] [address] [address] Sona Cruz Glucose Ql (U) Negative Normal NEGATIVE The [facility] Comment on above: Performed By: #### T 7, TSH, LIPID, CMP #### [facility] [address] [address] [address] Sona Cruz Hemoglobin Ql (U) Negative Normal NEGATIVE The [facility] Comment on above: Performed By: #### T 7, TSH, LIPID, CMP #### [facility] [address] [place] [address] Dr. Sona Cruz Ketones Ql (U) Negative Normal NEGATIVE The [facility] Comment on above: Performed By: #### T 7, TSH, LIPID, CMP #### [facility] [address] [address] [address] Sona Cruz LEUKOCYTES Negative Normal NEGATIVE [facility] Comment on above: Performed By: #### T 7, TSH, LIPID, CMP #### [facility] [address] [address] [address] Sona Cruz MUCOUS NONE SEEN Normal NONE SEEN [facility] Comment on above: Performed By: #### T 7, TSH, LIPID, CMP #### [facility] [address] [address] [address] Sona Cruz Nitrite Ql (U) Negative Normal NEGATIVE [facility] Comment on above: Performed By: #### T 7, TSH, LIPID, CMP #### [facility] [address] [place] [address] Dr. Sona Cruz pH (U) 6.0 [pH] Normal 5-9 [facility] Comment on above: Performed By: #### T 7, TSH, LIPID, CMP #### [facility] [address] [address] [address] Sona Cruz RBC 0-2 Normal 0-2 [facility] Comment on above: Performed By: #### T 7, TSH, LIPID, CMP #### [facility] [address] [place] [address] Dr. Sona Cruz SPEC GRAVITY 1.020 Normal 1.005-<=1.025 The [facility] Comment on above: Performed By: #### T 7, TSH, LIPID, CMP #### [facility] [address] [place] [address] Dr. Sona Cruz UA PROTEIN Negative Normal NEGATIVE/ TRACE [facility] Comment on above: Performed By: #### T 7, TSH, LIPID, CMP #### [facility] [address] [place] [address] Dr. Sona Cruz Urobilinogen Qn (U) 0.2 {Dayanna'U}/dL Normal 0.2 - 1. 0 [facility] Comment on above: Performed By: #### T 7, TSH, LIPID, CMP #### [facility] [address] [place] [address] Dr. Sona Cruz WBC 0-2 Abnormal NONE SEEN [facility] Comment on above: Performed By: #### T 7, TSH, LIPID, CMP #### [facility] [address] [place] [address] Dr. Sona Cruz Pre-Certification Formon Pre-Certification Form [id number] 2#1.00CD:127 Normal [facility] Consent for Procedure/Surger yon 05-19-2022 Consent for Procedure/Surgery [id number] #1.00CD:127 Normal [facility] ANTISTREPTOLYSIN O AB (ASO)o n 05-18-2022 Antistreptolysin O Ab 866.8 IU/mL Critically high 0.0-200. 0 [facility] Comment on above: Result Comment: Resu lts confirmed on dilution. Performed By: #### T 7, TSH, LIPID, CMP #### [facility] [address] [place] [address] Dr. Sona Cruz CBC AUTO DIFFon 05-17-2022 BASO # 0.1 103/ul Normal 0.0-0.1 [facility] Comment on above: Performed By: #### T 7, TSH, LIPID, CMP #### [facility] [address] [place] [address] Dr. Sona Cruz Basophils/100 WBC (Bld) 0.6 % Normal 0.2-2.0 [facility] Comment on above: Performed By: #### T 7, TSH, LIPID, CMP #### [facility] [address] [place] [address] Dr. Sona Cruz EO # 0.2 103/ul Normal 0.0-0.7 [facility] Comment on above: Performed By: #### T 7, TSH, LIPID, CMP #### [facility] [address] [place] [address] Dr. Sona Cruz Eosinophils/100 WBC (Bld) 1.8 % Normal 0.9-7.0 [facility] Comment on above: Performed By: #### T 7, TSH, LIPID, CMP #### [facility] [address] [place] [address] Dr. Sona Cruz Erythrocyte distribution width (RBC) [Ratio] 14.2 % Normal 11.0-15.0 [facility] Comment on above: Performed By: #### T 7, TSH, LIPID, CMP #### [facility] [address] [place] [address] Dr. Sona Cruz Hematocrit (Bld) [Volume fraction] 44.7 % Normal 36.0-48.0 [facility] Comment on above: Performed By: #### T 7, TSH, LIPID, CMP #### [facility] [address] [place] [address] Dr. Sona Cruz Hemoglobin (Bld) [Mass/Vol] 14.4 g/dL Normal 12.0-16.0 [facility] Comment on above: Performed By: #### T 7, TSH, LIPID, CMP #### [facility] [address] [place] [address] Dr. Sona Cruz IG # 0.09 10e3/ul Critically high 0.00-0.03 [facility] Comment on above: Performed By: #### T 7, TSH, LIPID, CMP #### [facility] [address] [place] [address] Dr. Sona Cruz IG % 0.7 % Critically high 0.0-0.5 [facility] Comment on above: Performed By: #### T 7, TSH, LIPID, CMP #### [facility] [address] [place] [address] Dr. Sona Cruz LYMPH # 2.2 103/ul Normal 1.2-3.8 [facility] Comment on above: Performed By: #### T 7, TSH, LIPID, CMP #### [facility] [address] [place] [address] Dr. Sona Cruz Lymphocytes/100 WBC (Bld) 17.2 % Critically low 20.5-60.0 [facility] Comment on above: Performed By: #### T 7, TSH, LIPID, CMP #### [facility] [address] [place] [address] Dr. Sona Cruz MANUAL DIFF REQ NO Normal [facility] Comment on above: Performed By: #### T 7, TSH, LIPID, CMP #### [facility] [address] [place] [address] Dr. Sona Cruz MCH (RBC) [Entitic mass] 28.7 pg Normal 26.7-34.0 [facility] Comment on above: Performed By: #### T 7, TSH, LIPID, CMP #### [facility] [address] [place] [address] Dr. Sona Cruz MCHC (RBC) [Mass/Vol] 32.2 g/dL Normal 29.9-35.2 [facility] Comment on above: Performed By: #### T 7, TSH, LIPID, CMP #### [facility] [address] [place] [address] Dr. Sona Cruz MCV (RBC) [Entitic vol] 89.0 fL Normal 81.0-99.0 [facility] Comment on above: Performed By: #### T 7, TSH, LIPID, CMP #### [facility] [address] [address] [address] Sona Cruz MONO # 0.9 103/ul Critically high 0.3-0.8 [facility] Comment on above: Performed By: #### T 7, TSH, LIPID, CMP #### [facility] [address] [place] [address] Dr. Sona Cruz Monocytes/100 WBC (Bld) 6.5 % Normal 1.7-12.0 [facility] Comment on above: Performed By: #### T 7, TSH, LIPID, CMP #### [facility] [address] [place] [address] Dr. Sona Cruz NEUT # 9.5 103/ul Critically high 1.4-6.5 [facility] Comment on above: Performed By: #### T 7, TSH, LIPID, CMP #### [facility] [address] [place] [address] Dr. Sona Cruz Neutrophils/100 WBC (Bld) 73.2 % Normal 43.0-75.0 [facility] Comment on above: Performed By: #### T 7, TSH, LIPID, CMP #### [facility] [address] [place] [address] Dr. Sona Cruz Platelet mean volume (Bld) [Entitic vol] 10.5 fL Normal 9.5-13.5 [facility] Comment on above: Performed By: #### T 7, TSH, LIPID, CMP #### [facility] [address] [place] [address] Dr. Sona Cruz PLT 319 103/ul Normal 150-450 [facility] Comment on above: Performed By: #### T 7, TSH, LIPID, CMP #### [facility] [address] [place] [address] Dr. Sona Cruz RBC 5.02 106/ul Normal 4.20-5.40 [facility] Comment on above: Performed By: #### T 7, TSH, LIPID, CMP #### [facility] [address] [place], [place] [id number] Dr. Sona Cruz WBC 13.0 103/ul Critically high 4.0-11.0 [facility] Comment on above: Performed By: #### T 7, TSH, LIPID, CMP #### [facility] [address] [place] [address] Dr. Sona Cruz CRPon 05-17-2022 CRP [Mass/Vol] mg/L Normal <=1.0 [facility] Comment on above: Performed By: #### T 7, TSH, LIPID, CMP #### [facility] [address] [place] [address] Dr. Sona Cruz CULTURE BLOODon 05-17-2022 Microscopic examination of blood, culture Culture Observations: NO GROWTH AT 5 DAYS. Normal [facility] Comment on above: Performed By: #### B LDCX2 #### [facility] [address] [place] [address] Dr. Sona Cruz Microscopic examination of blood, culture Culture Observations: NO GROWTH AT 5 DAYS. Normal [facility] Comment on above: Performed By: #### B LDCX1 #### [facility] [address] [place] [address] Dr. Sona Cruz [facility] mm/hr Critically high <=30 [facility] Comment on above: Performed By: #### T 7, TSH, LIPID, CMP #### [facility] [address] [place] [address] Dr. Sona Cruz MRI LSPINE WO CONon [...] by: YUNIOR ROBBINS Date: 2022-05-06 15:01 Normal [facility] MG MAMM SCREEN 3D CESAR CADon 04-15-2022 MG MAMM SCREEN 3D CESAR CAD Patient: SYLVIE ALTAMIRANO Exam Date: 04/15/2022 : 1970 Gender:F Ordering : DR ELEUTERIO CARRANZA . Admission #: [id number] Family : Order #: [id number] CLICK HERE TO VIEW EXAM RADIOLOGY REPORT PROCEDURE: MAMMOGRAM SCREENING 3D BILATERAL CAD COMPARISON: None. INDICATIONS: Screening mammography Calculator Name NCI Breast Cancer Risk Assessment Tool 5 Year Breast Cancer Risk 0.80% Lifetime Breast Cancer Risk 7.10% Personal Breast Cancer No Personal Ovarian Cancer No Treatments None Family Cancers Sister with colon cancer at age 34. LOCATION: [facility] BREAST COMPOSITION: Almost entirely fatty. FINDINGS: [...] Hickey MD on 04/15/2022 at 14:17 Normal [facility] ECHOCARDIO M/2D COMPLETEon 1 ECHOCARDIO M/2D COMPLETE Patient: SYLVIE ALTAMIRANO Exam Date: 04/08/2022 : 1970 Gender:F Ordering : DR ELEUTERIO CARRANZA . Admission #: [id number] Family : Order #: [id number] CLICK HERE TO VIEW EXAM ECHOCARDIOGRAM REPORT [...] Lazaro M.D. on 04/13/2022 at 11:32 Normal [facility] SLE PROFILE Aon 04-01-2022 Anti-DNA (DS) Ab Qn 1 IU/mL Normal 0-9 [facility] Comment on above: Result Comment: Nega tive <5 Equivocal 5 - 9 Positive >9 Performed By: #### T 7, TSH, LIPID, CMP #### [facility] [address] [place] [address] Dr. Sona Cruz Antichromatin Antibodies <0.2 Normal 0.0-0.9 [facility] Comment on above: Performed By: #### T 7, TSH, LIPID, CMP #### [facility] [address] [address] [address] Sona Cruz RA Latex Turbid. <10.0 Normal <14.0 [facility] Comment on above: Performed By: #### T 7, TSH, LIPID, CMP #### [facility] [address] [address] [address] Sona Cruz CROSSTIE INSPECTOR Antibodies 0.2 AI Normal 0.0-0.9 [facility] Comment on above: Performed By: #### T 7, TSH, LIPID, CMP #### [facility] [address] [address] [address] Sona Pierceogrольга'sana Anti-SS-A <0.2 Normal 0.0-0.9 [facility] Comment on above: Performed By: #### T 7, TSH, LIPID, CMP #### [facility] [address] [place] [address] Dr. Sona Pierceogrольга'sana Anti-SS-B <0.2 Normal 0.0-0.9 [facility] Comment on above: Performed By: #### T 7, TSH, LIPID, CMP #### [facility] [address] [address] [address] Sona Cruz Judd Antibodies <0.2 Normal 0.0-0.9 [facility] Comment on above: Performed By: #### T 7, TSH, LIPID, CMP #### [facility] [address] [place] [address] Dr. Sona Cruz REGGIE by IFAon 03-31-2022 Antinuclear Antibodies, IFA Negative Normal [facility] Comment on above: Result Comment: Nega tive <1:80 Borderline 1:80 Positive >1:80 ICAP nomenclature: AC-0 For more information about Hep-2 cell patterns use ANApatterns.org, the official website for the International Consensus on Antinuclear Antibody (REGGIE) Patterns (ICAP). Performed By: #### T 7, TSH, LIPID, CMP #### [facility] [address] [place] [address] Dr. Sona Cruz Physician Referralon 022 Physician Referral [id number] #1.00CD:127 Normal [facility] RHEUMATOID FACTORon 03-31-20 22 RA Latex Turbid. <10.0 Normal <14.0 The [facility] Comment on above: Performed By: #### T 7, TSH, LIPID, CMP #### [facility] [address] [place] [address] Dr. Sona Cruz ANTISTREPTOLYSIN O AB (ASO)o n 03-30-2022 Antistreptolysin O Ab 1118.1 IU/mL Critically high 0.0-200 .0 [facility] Comment on above: Result Comment: Resu lts confirmed on dilution. Performed By: #### T 7, TSH, LIPID, CMP #### [facility] [address] [place] [address] Dr. Sona Cruz DANIELLE-GARCIA VIRUS (EBV) AB PROFILEon 03-30-2022 EBV Ab VCA, IgG 57.9 U/mL Critically high 0.0-17.9 [facility] Comment on above: Result Comment: Nega tive <18.0 Equivocal 18.0 - 21.9 Positive >21.9 Performed By: #### T 7, TSH, LIPID, CMP #### [facility] [address] [place] [address] Dr. Sona Cruz EBV Ab VCA, IgM <36.0 Normal 0.0-35.9 [facility] Comment on above: Result Comment: Nega tive <36.0 Equivocal 36.0 - 43.9 Positive >43.9 Performed By: #### T 7, TSH, LIPID, CMP #### [facility] [address] [place] [address] Dr. Sona Cruz EBV Nuclear Antigen Ab, IgG 135.0 U/mL Critically high 0.0-17.9 [facility] Comment on above: Result Comment: Nega tive <18.0 Equivocal 18.0 - 21.9 Positive >21.9 Performed By: #### T 7, TSH, LIPID, CMP #### [facility] [address] [place], [place] [address] Dr. Sona Cruz Interpretation: Comment Normal [facility] Comment on above: Result Comment: EBV Interpretation [...] #### T 7, TSH, LIPID, CMP #### [facility] [address] [place], [place] [address] Dr. Sona Cruz XR KNEE CESAR 4V [...] by: YUNIOR ROBBINS Date: 2022-03-30 07:05 [facility] XR LSPINE MIN 4 VIEWSon 03-12 [...] YUNIOR ROBBINS Date: 2022-03-30 07:13 Normal [facility] CRPon 03-29-2022 CRP 1.4 mg/dL Critically high <=1.0 [facility] Comment on above: Performed By: #### T 7, TSH, LIPID, CMP #### [facility] [address] [address] [address] Sona Cruz FREE THYROXINE INDEX T7on FTI 2.62 Normal 1.30-4.50 [facility] Comment on above: Performed By: #### T 7, TSH, LIPID, CMP #### [facility] [address] [place] [address] Dr. Sona Cruz T3U 34.0 % Normal 30.0-39.0 [facility] Comment on above: Performed By: #### T 7, TSH, LIPID, CMP #### [facility] [address] [place] [address] Dr. Sona Cruz T4 [Mass/Vol] 7.70 ug/dL Normal 4.80-13.90 The [facility] Comment on above: Performed By: #### T 7, TSH, LIPID, CMP #### [facility] [address] [address] [address] S[facility] 48 mm/hr Critically high <=30 [facility] Comment on above: Performed By: #### T 7, TSH, LIPID, CMP #### [facility] [address] [place] [address] Dr. oSna Cruz TSHon 03-29-2022 TSH 2.577 uIU/mL Normal 0.358-3.740 [facility] Comment on above: Performed By: #### T 7, TSH, LIPID, CMP #### [facility] [address] [place] [address] Dr. Sona Cruz URIC ACID SERUMon 03-29-2022 Urate [Mass/Vol] 4.2 mg/dL Normal 2.6-6.0 The [facility] Comment on above: Performed By: #### T 7, TSH, LIPID, CMP #### [facility] [address] [place] [address] Dr. Sona Cruz Coding Summary.on 02-18-2022 Coding Summary. CD:[id number] Gh0bWw+PGhlYWQ+PE1FV SFxQ82oyUXcmY3UI3qVQ I0XYUYDMDUOMQ6DZX0gr NZ0ZZqpE4CvabKs TxyuuFWpDH17FZu3FDY1 xSlvDZjblJ6vbSRtP7q6 GcIiVO99fG62KUpiKLFc OeS6RkMxlbqblJCz U4qeYyLnaHSfMjy+PHRh YmxlIHdpZHRoPScxMDAl OdEiwAhvIH7xXs2gJLTs LWNvbGxhcHNlOiBj h4dgLUZsXAlsPC5diFzg M8UcuQY4SHMxg4m4Yt65 dHI+JSZfNPI1dFjcXWcg v036YoClz8ooIPU4 aNImFJtzEXL9J66nl6K1 RPCfQHJtJBG1tPA1tP2v pDoccnjmI0VclAJwGzW7 UNB8mEEmaY8krByo osqwgL6dMex+G03PRU9W VFICRG8SIzb4Q9XzKmmi dHI+HU33JXSiJK35mFUr sKVhb1vhsUp1KnOr AXLdSEA4pSpjXGrhd2Fj FSJpY78wdOYaz8Q6YNNx hPdlhTCvMjGwjTY5wL5s ZCyoxttsp3tiuffs Jshfn3npfz70fF70O34a UEqvTHVsVTV9RUUtPCXx rOmyac3suH6iOh2+IDxj z2pav8vmnNm4JvGl BMCvcrLywOxzDEU1j6Yx Fc27T2KmsRuue5QoIyx0 lh66bVZyx6Y7vAB0FJap FWNctI8aJVezMuF2 ULFmWkQtdZ06dPJyGJre Rh3pvTghsVfxXJ6sGWAc zygmAZEplE7xTZTfuIFt yTrrZX7hDSCzgvec p133DlPuSTF7RVYtvEPy P0ZcjZ4xLeGnASNvVXSi L7NouHEeFShyG999BCzr TqJ7PPOosoWrT0Eq YVLynYfqZsG1m7B1Ck0F b2QlebnoDSV5HPouUZX7 NcQ3VpPxCnO2N4RuFnc3 VEUbzKxuIX1gJ8Yo QIYpafjouqlziOX0YFNn VCJatJ37zSWjMGqeAv6f w2U9x013WUZbGZVyvC63 Se1wnFbzQYCqlILZ eG3ggjxik5zrfgrcKkOi XKEnUDc3URm0OLAekZlf TdNwHYJ3NbC1KHS0wUAb aU7wnVwfykdvnU8x Oyc+N81bsG4wHSJ2PKU8 zwjbKPCwvvAtFQ93VA15 Y6CkDiheoVLjjQN+PGRp gvTjqAkvTU6iOcAi c5mbu0OaRJheP8XbZOQs UPdaDed1BWEsYOG0cOJ8 wV3aJEVbTZycj3J9kVV6 F6CgssQile3nx0ms EAPzBFyoI78daDPiq7U9 DJGlqXS4GQLvzOgcKlUr uQ63Irw+MOAxfGdaf3Vh Socph2lxq9ybiEo7 IjMwJSIgdmFsaWduPSJ0 n1WsXh30K69fLVquEFNp NCKpWZJlAKMucPzbez2b rB8nPf3+PGNvbCB3 aIE9eA5bWLCnYqI1IUtq E026UnJjgIQzOembl4tr a6oxeYe5QzXtTJYvyvKn zYcnBBG4a6ShUf14 J79wZSwgOXQiCTLlHUGt LTGzfJqnqo2ovS4lDr1+ WU8vj4wehz31mQ89gTQ+ XTGeTEW9bUloZKmx YBTjuI6iDYzeVoF2JXPs XgHmkH31aKLnKSleBz9n yGfhbGhhXN8uJXUmcxwv t201UwTzp8dzWFOk gKNlUAefASH5D91sr0A6 WWKbZWDtATJ5uEG7cN0l bGlnbjogbGVmdDsgdmVy aRrjATbdUDitI368 IHRvcDsnPlBhdGllbnQg RoEzQQq5B3BbQwd3BFFs pLogSN5ugRCuAUnjDs5s xVqijAwoRP0qGKNo qkvji972TfUou4ezZRZk yENvSUuoOTD3E60aa3A3 WAMtLZMqYYF4cUB3pQ4q bGlnbjogbGVmdDsg ojSdlFomATayEQygP067 IHRvcDsnPkJpcnRoIERh xPX5WT69FG52fXYzq5S3 qQH2N2ImXKIbapcs zuokkOL4WFFqONJliW70 Tk4irDvzAx8dWNUlEER0 IRKkuMHkK4WvcZ7dOfDe UBFjLFGpB4DkxMFd AMxdL684NCubJeS2GGTg vbUpL9WcEGDcwSmoVfM1 r4K8Fm2JA8C3HI85CD88 qWCzs9G3iXI9H1Yj EMBltfyydxndcYF6LZHj APUssE05Wh9gcKmnQw3l XUZfMUQ6PVHksPHgQ7Kz pX3wZrWyCDArAAJf T3GbdMMlDYcgD158FOys EgU4CMFplmFkN3FbXZKn tCyjAoQ3k9J8Bk4BDPh8 DZ26TP72sECyy8S9 kPJ3K7UpULKqddrfvxmd hDZ9WSDjSOUqdZ23Qu4d bMevBd5zNCFeDMA6HSWc mPBwX4LzrB5zXkPt HKKpXIWfZ4CwiVAeLUcg U161WLmzLpH6YUGusfVk E0TvBDKrwEgrNdU1d0S6 Bh1JBSEnUQ46YLI9 iPU7RY05PZ95H4HuOhmc dGFibGU+PHRhYmxlIHdp ZHRoPScxMDAlJyBzdHls OX4zSq6fPSKtLPQd fRmvhUCmCbVvc5fgCEIq TJrfTI6aoFmfK5YieQI6 KWBhy9a2Oi54Y41nL5Xu dXA+WSEqgSJ6vGX2 jJ5yImDbGkF1YGpnP274 RlVarILuJcxvd1ymu3mf eNs0ZlL3RGQjwcHfeOag XWT4q8DvUo47G72z IHdpZHRoPSIxNSUiIHZh iLzfbu3grK0jZz7+PGNv qDU8dTR8wC9bItPkNgL7 ILxmY723MyQrcEQb Hzohu8erb1wffWh5SgCo XSEovhFmkItdDQZ1a0Ps Fu13K0YrfUtef3OvFkr3 gi92dPRar9J5dEW3 V2UbKWBzfgaekSJetGvi ML6cBVPmuxiuLYPyuP2j OALrQ4d4WwQmKuY6COpj U0BcjpE2JKPlgXEm XVxgROE7K86li5O6DPKv PWMwQLB0xWH7kH9vuHsi bjogbGVmdDsgdmVydGlj IBxcBZpmP157ZWFh oIhdKTUneA0hXNXzbAYr cNwqYQ3uDLAkpbqqSdiW SFeJRF5EOXRWNpMZAIVu TDwvdGQ+PHRkIHN0 sAwsAZedWBHqhI8aANVx M8i1ShOjZeC8WTiyB0Aq HTImhetnTa40pZ0lOpBm MbM1SSxkL0FpzzW4 AUCraFKsVXseGTG3Q90q q4F0XWCwYUTtALQ5fIL8 sC9ytGzajhtykDOpxWxs dmVydGljYWwtYWxp V637FEDeaLxcIoNcYvMu NoE3EjE8D1ApShg1WDKm sBmgAE2wsHAqHWctUk0m hXtnoCyiHR8dQDEv mhvyTKKnxQ9zFNFghWOj lPayQV1iWNGtovnkz333 AcNuXZN9BZOawQEdN7Bg xG4aSuUrNGWrJKOq S8VeqEJhZLskB905RKmu XnA2BROnuxGxI4PmZCDw sHhpUnN9s0Y5Yb83SBUW ZWFyczwvdGQ+PHRk SJK5uQppACfaULImqG0q WROuU0l6BmPmScE5SSlw M7OrJSHpzhmrGf44kT8f YwChLnH8VBarM3Wa rhP9QRVupDQoVQwbTIS5 K52qc5K4RQHfRUFrRLJ2 sWU1bY4yzHefhvxusQIo dDsgdmVydGljYWwt AYmfK863HKCdqDacYhPq bWFsZTwvdGQ+PHRkIHN0 fMdkTUbvXWJpmL0fZBLl L1q8HdTrIdV6BJxp T7SwKFCbawtqAu39eI5s XpMgBgY6LXaqV7XlorK1 HPTawZAlYCxvNTL3X13v w3X2RQVjGGMtVGG8 mZJ8vL4aiQuegrdcoCCh dDsgdmVydGljYWwtYWxp C614SZHowBfpSa10oRQa jEozcfL7D1PvLzjz dHI+NC34JVJqGR77hHNa jUQjt3jaqQq1IbReFZCt XER4gLtrYJsgj5GxUOUc O22nkWZvi9O2SQRv zNoaxAKmSoEodUR1fS1g UQpsmmxuq1zzzsypFrgg a5joqh09iZ34D83cNZph ZHRoPSIzMCUiIHZh fJzqvm4uvM2yDb1+PGNv pQK3jWN5eC2cJsHpIfN0 ZRabW347UbExuSDeQtan r6uio6hcnBd8FqSc DUNgfrUytMwiZEW1b1Uu Jj34A02sZHdlDLYpCLMp QBDsGSWysUkgfe9tqE6r Ii8+MM9sn1hxsi75 mO66xBC+FTJlIPW5yUyg JYylYOQnmP8jCFlkAnZ0 NFOjOmPrgW93dJMdGOik Qn3nlUlmsIfkAJ3c OWEzlmjyt576VoTnx9oo XGRtfRYqHOaiURZ0Q09y u3Y3VNLyAWQjUOG9vYQ8 mO4zrFvdrvrjhSCy dDsgdmVydGljYWwtYWxp Z383OJVaiMncTiYgiHLo L0ltvoYYYL5lCnjxgVN+ DHZfHNV4qRrsBAtx GXXdiH8sEAZoH3u7FzLg ZmU9JBbjA7LxlnQ6RXLl iTRjFAZqeRIInZ2mumjo j2xerfwmDwNzUCHo PHl2XVw7VENdqXolWcOg RNM8VgY5IAC9hOPhxY2d yMlfzhuusI4lVbe+RklO OjwvdGQ+PHRkIHN0 zZrgKLdkYSZtvC1mDEMn A4q2QnTwLqA3VRvsC2Pq jvE6HJRvgHFkGYRrtOEU mN6ctilmb7zfsncm PxSlIMFuHSr0UZw4TRRx gIhuEdXjQJH1QxP2DIB2 bZJhcD8fkOxfpawuwG3n Oyc+TVJOOjwvdGQ+ BOWbSUE9sFqaTVygSRYz aH0hPFAzZ0o3WbCrUjN4 BEeiZ1XdfhB7WNUtnJKm HLDhnGDLmG5brewf x0zaauptEbAkADJcXFz8 KXw6CABgqJyxMkUcAOH4 ViD1JPL3iIVusA9thGsy opgevX2yFey+UGF5 OXV4TR96SH93F9FtLtli dGFibGU+PHRhYmxlIHdp ZHRoPScxMDAlJyBzdHls ON8xJk6tVIJbMTKi bGxh (more content not included)... Normal [facility] Insulin Lvlon 02-18-2022 Insulin Qn 10.2 u[IU]/mL Invalid Interpretation Code 2.6-24.9 [facility] Comment on above: Result Comment: Perf ormed at: [facility] [address] [id number] PhD Bonilla Maloney Performed By: #### 7 [id number], [id number], [id number], [id number], [id number], [id number], 8846770, [id number], 9971449, [id number], [id number] ####[facility] [address] [place] [address] Auto Diffon 02-17-2022 Basophils/100 WBC (Bld) 0.4 % Normal 0.0-2.0 [facility] Comment on above: Order Comment: Order Added by Discern Expert. Performed By: #### 7 [id number], [id number], [id number], 0354205, 2373876, 8007872, 5450007, [id number], 7884691, [id number], [id number] ####[facility] [address] [place] [address] Basophils/Leukocytes Auto (Bld) [Pure # fraction] 0.0 E9/L Normal 0.0-0.2 [facility] Comment on above: Order Comment: Order Added by Discern Expert. Performed By: #### 7 [id number], [id number], [id number], [id number], 0226324, 4705429, 9517964, 9518409, 08576826, 2549632, [id number], [id number] ####[facility] [address] [place] [address] Eosinophils/100 WBC (Bld) 2.8 % Normal 0.0-8.0 [facility] Comment on above: Order Comment: Order Added by Discern Expert. Performed By: #### 7 [id number], [id number], 1000505, 0730779, 8502577, 1771925, 7338576, 7735283, 36378889, 1091121, 79075378, [id number] ####[facility] [facility] [address] [place] [address] Eosinophils/Leukocyte s Auto (Bld) [Pure # fraction] 0.2 E9/L Normal 0.0-0.5 [facility] Comment on above: Order Comment: Order Added by Discern Expert. Performed By: #### 7 [id number], 28965288, 7261406, 5919134, 5962749, 5825268, 3731010, 1036044, 89020324, 8712442, 21148326, 255118361 ####[facility] [address] [place] [address] Lymphocytes/100 WBC (Bld) 19.0 % Normal 14.0-50.0 [facility] Comment on above: Order Comment: Order Added by Discern Expert. Performed By: #### 7 75619867, 94573335, 1799025, 4554231, 9213079, 9117221, 1390168, 5725282, 43036237, 4432719, 56027352, 868780414 ####[facility] [address] [place] [address] Lymphocytes/Leukocyte s Auto (Bld) [Pure # fraction] 1.5 E9/L Normal 1.0-4.0 [facility] Comment on above: Order Comment: Order Added by Discern Expert. Performed By: #### 7 87670574, 67672865, 9823794, 8413903, 8873411, 2746091, 7633354, 5567632, 12711795, 2155653, 89634514, 807950177 ####[facility] [address] [place] [address] Monocytes/100 WBC (Bld) 7.3 % Normal 4.0-14.0 [facility] Comment on above: Order Comment: Order Added by Discern Expert. Performed By: #### 7 26978906, 28107828, 9559276, 9828223, 7688291, 9771713, 1119342, 0216375, 61550393, 9094857, 79911527, 395017655 ####[facility] [address] [place] [address] Monocytes/Leukocytes Auto (Bld) [Pure # fraction] 0.6 E9/L Normal 0.2-1.0 [facility] Comment on above: Order Comment: Order Added by Discern Expert. Performed By: #### 7 68462612, 44049372, 7377962, 9469498, 3987078, 7505706, 0997750, 3962138, 23517463, 7282365, 64959239, 929092342 ####[facility] [address] [place] [address] Neutrophils/100 WBC (Bld) 70.5 % Normal 36.0-75.0 [facility] Comment on above: Order Comment: Order Added by Discern Expert. Performed By: #### 7 74249088, 07567231, 8932615, 8010267, 7840299, 4093704, 0552088, 7957147, 31280385, 6681216, 02230823, 933405052 ####[facility] [address] [place] [address] Neutrophils/Leukocyte s Auto (Bld) [Pure # fraction] 5.7 E9/L Normal 2.0-7.5 [facility] Comment on above: Order Comment: Order Added by Discern Expert. Performed By: #### 7 73527352, 84675498, 4728080, 6726049, 1030685, 1080319, 4483879, 3520372, 14703964, 5577747, 31010394, 759569843 ####[facility] [address] [place] [address] CBC w/ Auto Diffon 2 Erythrocyte distribution width (RBC) [Ratio] 15.3 % High 10.9-14.2 [facility] Comment on above: Performed By: #### 7 08498058, 05196165, 3175568, 8973013, 6534149, 6393671, 9193381, 6984022, 75177851, 7354248, 15846539, 738644346 ####[address] [place] [address] Hematocrit (Bld) [Volume fraction] 36.7 % Normal 34.0-46.0 [facility] Comment on above: Performed By: #### 7 70140846, 77641309, 5282884, 8009613, 0559908, 0794653, 8308202, 7084136, 12829423, 4012774, 78338790, 996329994 ####[address] [place] [address] Hemoglobin (Bld) [Mass/Vol] 12.2 g/dL Normal 12.0-16.0 [facility] Comment on above: Performed By: #### 7 11824961, 48679083, 1490455, 9048457, 1108174, 8064859, 0435147, 3912851, 95655269, 9801290, 14905530, 203711161 ####[facility] [address] [place] [address] MCH (RBC) [Entitic mass] 28.9 pg Normal 27.0-34.0 [facility] Comment on above: Performed By: #### 7 54302226, 45798097, 8238222, 6585002, 5574655, 1033236, 1351920, 8708494, 71421627, 4173296, 09530663, 221927191 ####[address] [place] [address] MCHC (RBC) [Mass/Vol] 33.4 g/dL Normal 31.4-36.0 [facility] Comment on above: Performed By: #### 7 64123289, 02003176, 6169092, 4246828, 3661311, 2504592, 0680022, 4323640, 62219049, 4610569, 06105324, 696386046 ####[address] [place] [address] MCV (RBC) [Entitic vol] 86.7 fL Normal 80.0-100.0 [facility] Comment on above: Performed By: #### 7 57581237, 28691003, 5859729, 5515242, 9328023, 5704059, 6273254, 0484195, 95803022, 2374929, 58291404, 466187274 ####[address] [address] Platelet mean volume (Bld) [Entitic vol] 9.0 fL Normal 6.4-10.8 [facility] Comment on above: Performed By: #### 7 93698970, 30132453, 5964151, 4435498, 7277248, 2943288, 7269255, 9753072, 02590897, 3741735, 47973853, 940378935 ####[address] [address] Platelets (Bld) [#/Vol] 223.0 E9/L Normal 150.0-500.0 [facility] Comment on above: Performed By: #### 7 55645669, 45486547, 3632863, 7895425, 0005064, 7159717, 8008942, 3810655, 54356925, 6257737, 36138781, 542365833 ####[address] [address] RBC (Bld) [#/Vol] 4.2 E12/L Low 4.3-5.9 [facility] Comment on above: Performed By: #### 7 67757550, 21482067, 6146566, 4101782, 8452188, 4099861, 8276550, 5469918, 33425448, 0524251, 10808775, 992047615 ####[facility] [address] [place] [address] WBC corrected for nucl RBC Auto (Bld) [#/Vol] 8.1 E9/L Normal 4.0-11.0 [facility] Comment on above: Performed By: #### 7 02061450, 51891511, 7658027, 8174969, 5717657, 7860387, 1977987, 5269185, 07560705, 3468725, 18690461, 846564827 ####[facility] [address] [place] [address] CHEMISTRYOrdered By: SYSTEM SYSTEM on 02-17-2022 25-hydroxyvitamin [...] % Normal 32.0 - 48.4 % [facility] Remisol Triglyceride [Mass/Vol] 127 mg/dL Normal <=149mg/dL FT [facility] TSH Qn 3.83 m[IU]/L Normal 0.34 - 5.60 mcIU/mL FT [facility] Urea nitrogen [Mass/Vol] 19 mg/dL Normal 5 - 21 mg/dL [facility] Urea nitrogen/Creatinine [Mass ratio] 38 mg/mg High 10 - 20 [facility] CHEMISTRYOrdered By: Lorene Bahena on 02-17-2022 HbA1c (Bld) [Mass fraction] 5.7 % Normal <=5.9% [facility] ChemAutoSS CMPon 02-17-2022 Albumin [Mass/Vol] 3.4 g/dL Normal 3.3-5.0 [facility] Comment on above: Performed By: #### 7 68591535, 58680670, 3473432, 3667567, 0246982, 6171743, 3485256, 3282330, 73299225, 7121410, 85234211, 343374049 ####[facility] [address] [place] [address] Albumin/Globulin (S) [Mass conc ratio] 1.1 Normal 1.1-2.2 [facility] Comment on above: Performed By: #### 7 92819275, 29903127, 1543935, 7505341, 9888416, 9663886, 8831403, 0800504, 56517198, 9101250, 45800836, 752923180 ####[facility] [address] [place] [address] ALP [Catalytic activity/Vol] 71 Int._Unit/L Normal 21-98 [facility] Comment on above: Performed By: #### 7 42064339, 88917673, 5662777, 8213992, 8696555, 5786848, 6294590, 2945316, 92551877, 4413069, 28078970, 172181201 ####[facility] [address] [place] [address] ALT No additional P-5'-P [Catalytic activity/Vol] 17 Int._Unit/L Normal 6-46 [facility] Comment on above: Performed By: #### 7 74832355, 41633155, 0811733, 1937740, 3066187, 6777652, 0286242, 6304999, 43491038, 8094543, 65294218, 511122561 ####[facility] [address] [place] [address] Anion gap [Moles/Vol] 9 mmol/L Normal 6-16 [facility] Comment on above: Performed By: #### 7 60052370, 03819580, 0384794, 5476818, 5010106, 5844579, 1608692, 4771120, 26488813, 5460565, 87743182, 950214102 ####[facility] [address] [place] [address] AST [Catalytic activity/Vol] 19 Int._Unit/L Normal 5-43 [facility] Comment on above: Performed By: #### 7 61399016, 20712404, 6386362, 0491703, 3053110, 9849954, 9423375, 7825137, 22882922, 3784399, 24983074, 648683710 ####[facility] [address] [place] [address] Bilirubin [Mass/Vol] 0.2 mg/dL Normal 0.0-1.1 [facility] Comment on above: Performed By: #### 7 10095397, 23592359, 9424597, 8501957, 9616470, 4447947, 4571543, 3011732, 95178798, 3861553, 35854343, 951563572 ####[facility] [address] [place] [address] Calcium [Mass/Vol] 8.9 mg/dL Normal 8.9-11.1 [facility] Comment on above: Performed By: #### 7 20044456, 84618963, 8712651, 1054181, 4965931, 6128208, 7823110, 1770676, 08626359, 1613634, 01346274, 461023440 ####[facility] [address] [place] [address] Chloride [Moles/Vol] 108 mmol/L Normal 101-111 [facility] Comment on above: Performed By: #### 7 76394985, 53056410, 4276360, 5835703, 0039805, 7745088, 2705303, 3188386, 26379549, 7465333, 10627777, 413853384 ####[facility] [address] [place] [address] CO2 [Moles/Vol] 26 mmol/L Normal 21-31 [facility] Comment on above: Performed By: #### 7 11536829, 46762469, 4780203, 2771943, 4592842, 1673708, 8204944, 3360287, 30675818, 7861988, 77115455, 261624673 ####[facility] [address] [place] [address] Creatinine [Mass/Vol] 0.5 mg/dL Normal 0.5-1.3 [facility] Comment on above: Performed By: #### 7 27920828, 95074885, 3328206, 6530804, 3751662, 3897339, 5647219, 5391228, 59092240, 5961579, 66641785, 075132497 ####[facility] [address] [place] [address] Globulin (S) [Mass/Vol] 3.2 g/dL Normal 1.4-4.0 [facility] Comment on above: Performed By: #### 7 63784012, 35893607, 7419987, 4882937, 2255292, 7653986, 4709784, 2584730, 80179369, 0640394, 83401407, 633242714 ####[facility] [address] [place] [address] Glucose [Mass/Vol] 101 mg/dL Normal 55-199 [facility] Comment on above: Result Comment: If t his glucose result represents a fasting glucose, interpretation should refer to the following reference range: 55-99 mg/dL Performed By: #### 7 37543477, 39365774, 3618014, 7162353, 0337892, 9903053, 2382924, 3483220, 71463787, 7592523, 02185337, 295307669 ####[facility] [address] [place] [address] Potassium [Moles/Vol] 3.6 mmol/L Normal 3.5-5.3 [facility] Comment on above: Performed By: #### 7 67768628, 89014374, 4978179, 5214428, 4905701, 2007464, 2637901, 7313041, 80768431, 2175451, 05856351, 764091554 ####[facility] [address] [place] [address] Protein [Mass/Vol] 6.6 g/dL Normal 6.0-7.8 [facility] Comment on above: Performed By: #### 7 92174528, 74673182, 9337860, 2191901, 7167657, 1898044, 4485778, 8483672, 17010325, 1922911, 70343307, 085312382 ####[facility] [address] [place] [address] Sodium [Moles/Vol] 139 mmol/L Normal 135-145 [facility] Comment on above: Performed By: #### 7 27537890, 31912157, 2835771, 5811132, 5030556, 3777554, 4374232, 3443115, 95881956, 3310339, 39842696, 951317811 ####[facility] [address] [place] [address] Urea nitrogen [Mass/Vol] 19 mg/dL Normal 5-21 [facility] Comment on above: Performed By: #### 7 23922061, 36069291, 6535350, 2490255, 1487027, 0526017, 1785879, 7583649, 88313653, 1392894, 51946253, 387564004 ####[facility] [address] [place] [address] Urea nitrogen/Creatinine [Mass ratio] 38 No Units High 10-20 [facility] Comment on above: Performed By: #### 7 83755942, 48298030, 3549867, 3294908, 2645406, 5150659, 8601872, 8357198, 35794357, 8608155, 64734516, 332414296 ####[facility] [address] [place] [address] Consent for Treatmenton Consent for Treatment [id number] #1.00CD:127 Normal [facility] Folateon 02-17-2022 Folate [Mass/Vol] 7.6 ng/mL Normal >=6.7 [facility] Comment on above: Performed By: #### 7 35300942, 49660404, 0106507, 2593509, 0341843, 9379817, 2961958, 1767601, 08425160, 3909535, 46524378, 085176961 ####[facility] [address] [place] [address] HEMATOLOGYOrdered By: SYSTEM SYSTEM on 02-17-2022 Basophils/100 [...] 8.1 E9/L Normal 4.0 - 11.0 E9/L [facility] HemeAutoSS JldT3ako 02-17-2022 HbA1c (Bld) [Mass fraction] 5.7 % Normal <=5.9 [facility] Comment on above: Performed By: #### 7 03814496, 67178608, 3955887, 6665366, 6546546, 0696047, 0514980, 5844926, 22390747, 4557350, 35880251, 454052880 ####[facility] [address] [place] [address] Ironon 02-17-2022 Iron [Mass/Vol] 33 microgram/dL Low 35-153 [facility] Comment on above: Performed By: #### 7 54599068, 23387873, 3338386, 2987759, 4136719, 8912092, 1443127, 1075459, 59264526, 8902836, 77004851, 478809866 ####[facility] [address] [place] [address] Lipid Panelon 02-17-2022 Cholesterol [Mass/Vol] 173 mg/dL Normal 120-200 [facility] Comment on above: Performed By: #### 7 05134071, 96945435, 3826027, 6162044, 8235645, 4182034, 9385534, 2345748, 20813156, 2934505, 96701033, 811309612 ####[facility] [address] [place] [address] Cholesterol in HDL [Mass/Vol] 42 mg/dL Invalid Interpretation Code [facility] Comment on above: Result Comment: HDL > or equal to 60 mg/dL: Low cardiovascular risk HDL < 40 mg/dL : High cardiovascular risk Performed By: #### 7 37515545, 43170049, 1782901, 3757122, 1062587, 0668840, 3164403, 2111010, 23078889, 8496272, 91182807, 493061814 ####[facility] [address] [place] [address] Cholesterol in LDL [Mass/Vol] 109 mg/dL Normal <=129 [facility] Comment on above: Performed By: #### 7 89341680, 71909214, 9029263, 8833920, 6818678, 8447670, 1927064, 0885199, 03879150, 8924286, 90559420, 738137862 ####[facility] [address] [place] [address] Cholesterol in VLDL [Mass/Vol] 25 mg/dL Normal 7-40 [facility] Comment on above: Performed By: #### 7 36579986, 18955929, 2937373, 6340910, 2487308, 0820114, 9178690, 5782904, 09034307, 4514157, 49675171, 835326035 ####[facility] [address] [place] [address] Triglyceride [Mass/Vol] 127 mg/dL Normal <=149 [facility] Comment on above: Performed By: #### 7 12950109, 21818929, 2067411, 1159656, 2665299, 8291851, 0486403, 5208444, 92745978, 2599321, 79849917, 523615685 ####[facility] [address] [place] [address] Physician Orderon 02-17-2022 Physician Order [id number] #1.00CD:127 Normal [facility] Thyroid IIon 02-17-2022 Free T4 index Calc [Mass/Vol] 9.74 ng/dL Normal 5.90-13.10 [facility] Comment on above: Performed By: #### 7 95291673, 08052203, 9528392, 7697868, 7903246, 4478216, 1750920, 8728224, 70575046, 1209622, 16756689, 711817268 ####[facility] [address] [place] [address] T4 [Mass/Vol] 8.4 microgram/dL Normal 4.6-9.1 [facility] Comment on above: Performed By: #### 7 57971637, 41897577, 6994268, 1590307, 8829076, 0733116, 6451842, 1713564, 68613466, 7946408, 30058306, 191182486 ####[facility] [address] [place] [address] T4 uptake [Mass/Vol] 46.4 % Normal 32.0-48.4 [facility] Comment on above: Performed By: #### 7 02449454, 66392720, 2906721, 8368143, 0933624, 1610046, 3482553, 7599350, 78608396, 9584820, 60154288, 879977527 ####[facility] [address] [place] [address] TSH Qn 3.83 m[IU]/L Normal 0.34-5.60 [facility] Comment on above: Performed By: #### 7 88608354, 03968846, 2721136, 0563665, 5479442, 2404975, 1891992, 0680630, 81420143, 6712477, 43052605, 032399121 ####[facility] [address] [place] [address] Vit B12on 02-17-2022 Cobalamin (Vitamin B12) [Mass/Vol] 271 pg/mL Normal 50-1500 [facility] Comment on above: Performed By: #### 7 37878608, 35904787, 4463505, 4029727, 4078546, 8957334, 7023379, 7185834, 51730982, 1000783, 43625506, 475516508 ####[facility] [address] [place] [address] Vitamin D 25 Hydroxyon 02-17 25-hydroxyvitamin D3 [Mass/Vol] 17.4 ng/mL Low 30.0-100.0 [facility] Comment on above: Result Comment: Vit leonard D deficiency has been defined as a level of serum 25-OH vitamin D less than 20 ng/mL (1,2) by the [place] [employer] and an Endocrine Society practice guideline. The Endocrine Society further defined vitamin D insufficiency as a level between 21 and 29 ng/mL (2). 1. IOM ([place] [employer]). 2010. Dietary reference intakes for calcium and D. [place]: The National Academies Press. 2. Khadra MF, Willa RAHMAN, Jones [place], et al. Evaluation, treatment, and prevention of vitamin D deficiency: an Endocrine Society clinical practice guideline. JCEM. 2010; 96 (7):1911-30. Performed By: #### 7 05508321, 74766958, 9493256, 7891262, 4894424, 3482054, 2674204, 9704294, 80948578, 1571474, 85934317, 905969991 ####[facility] [address] [place] [address] eGFRon 02-17-2022 GFR/1.73 sq M.predicted among blacks MDRD (S/P/Bld) [Vol rate/Area] mL/min/{1.73_m2} Normal >=59 [facility] Comment on above: Order Comment: Order added by Discern Expert. Result Comment: eGFR is race adjusted. AA=. Performed By: #### 7 14790118, 51251704, 3639452, 4664318, 5918051, 4446885, 5817919, 9886247, 30070653, 7191644, 63815630, 109156990 ####[facility] [address] [place] [address] GFR/1.73 sq M.predicted among non-blacks MDRD (S/P/Bld) [Vol rate/Area] mL/min/{1.73_m2} Normal >=59 [facility] Comment on above: Order Comment: Order added by Discern Expert. Result Comment: [employer] Supervisor bandar kidney disease could be indicated at eGFR's of less than 60 mL/min/1.73m2. Kidney failure is indicated at less than 15 mL/min/1.73m2. Performed By: #### 7 81604221, 99666740, 5473296, 8327521, 4659982, 0813888, 4588183, 8077698, 78688587, 8353008, 13398511, 595245198 ####[address] [place] [address] Coding Summary.on 01-18-2022 Coding Summary. CD:[id number] Gh0bWw+PGhlYWQ+PE1FV XMfC68evHEntG2WD8kYJ D0TDTLPPQWALX8JDM5gy SM0FAupJ2EqoiDq DkukaJDbBI38HLa9TWH6 iJomBIbcrJ9pkMExG4y3 JxOzDU30uC69ANjtOCHx WqS1TtDpzdgbhRTm C2tbOnDsvPVhHrq+PHRh YmxlIHdpZHRoPScxMDAl RqErsZpvAX8lFp7vICIf LWNvbGxhcHNlOiBj r7goZIDdLLwaEE9iwZyb G7QfoIP5HRYgv7n9Bg22 dHI+AWDdJQO7bZepZOdf l010JaTmr1nqWPC3 uIEzBSjmKGQ4Z45pr5N3 IGRgIJMnTJE3vIN8fX3d aTovlbwwU9TpnCVgYyH2 HNX7pWNgbY9rvGpb fdnuiQ6bNor+E50JWH1A TWVTQM9BQva1Z2TqZpag dHI+EM34UIRhRR98sGPv yAUdn5ukqHb6PtPj VHEyEBN7sOciYVnyl1Fr TAIiN95mgKLys0E2DNRm sQzjkZDrFcQhhJV2tG7e LZzygdfbm5glchzc Ollgb6mdkf33qC30G77u UBeuKTUwNZG6LALfSEAj yVgbzg8egZ7vPw9+IDxj s1arj8boaQc6FcSc AYWuhkKrbMcaMNF9e9Db Mp86W9KtvTrbp2JrKhp9 sf66sLEpi6G6cBC0RZic PKRgvR0nMUzzZlO1 HAHkKaBerV43vBBdKOli Ic7rnIpiiPmjSE4uUUBo ipnyBQGroM8cOGRhuGFe nSuxIH5vPNLaldvb r967HvIxXQO6MWKmaLOy G1BfkZ8cGfZqWJSjKSYb U3RxqZTqRYeoV379JHqe IeZ8KUFmdyIfJ3Zg TUHyvHxkUkS0l8H9Hz0N t2IstdlrZVK8AKfhKKZ8 XmE1LzLpSrN2J8BrEvx5 YDRofXrsXP0zT4Tp GQAkwmksphnlkCH1DTAd OMVdqI02aVOvHCcqPv1w j5B7e631KNOwRIHixJ84 Nn5xqMojKKGgtJXL oO5pjpvba7rsidrjSnDd UWXoNKi8UBg9JQIapXdk SkNxMNM8AmR6JKS4iIPe iM9wwCugmwrmcM4b Oyc+I90ioA3jBJI6CNY5 cgkfZYHdicIhGZ67QU88 N5HuDbhiiAPevRD+PGRp drWnbCldRB8pQqBh h1xcz3ZoGCbcI1DmWYAw JAdiVrq9VTNbJZY4jHS9 hV3tGVLwZJtyl6W0nMQ2 L8RdhvFkfo5in0po BRVdMKpcC21vcWXyn7R3 QUPlyCG0QFQbgTlqVqCb lX13Jqg+VSZfxTuvq1Cs Nagdu6due8rvyMw6 IjMwJSIgdmFsaWduPSJ0 t5ItAl81A51zRSwnPGNd GIWyXQPfTAHheUwiil1q aQ4dVh3+PGNvbCB3 iAQ6rV7xHWYpVkC8DRai M596YxVkoIZwHsbis2yf k6rbjFf8HvEcTWYyzgEw iTdgTNG5n6YvWh54 A09lFPvlUSKaKWLlFRIk IQTjaLopgd0hhL5jEj4+ LY1zm2wpde74bW27nDB+ NETqLKT6kLyoOJxa LWObwQ8aOUfoLjU0NCVv DoVqmO81iGUfFResRd3d wFpyiTdbBO3uJTXezibr u606ZiMjk6yoOJLt tUQxTAsiCNF0P40qs6U3 GFCnODFpZRB7zXD5kM7r bGlnbjogbGVmdDsgdmVy aPopATmkCQaoS838 IHRvcDsnPlBhdGllbnQg PvGqDSw3W8CnTcf3WOQe uWziCI5yvDRnJUenNg5x aYgscXbdFW7vKSUm vepbj282VvSne3xhMJFx tXNhOZwmRYR7J06qh2J3 NSGbQBWnISN5rEY1sT8a bGlnbjogbGVmdDsg mxEgwAynJKdjXEvrB322 IHRvcDsnPkJpcnRoIERh aZE2DQ69LS30sDGzs2W0 kRT7U7CiRBUlacft upisxAF6CKSxSYAmwY63 Cb5ftWmoXo3iCTIkONP4 SGXgtVLnE5ZyzA5yZiLj OHWkEWZzW2SnuACw TCvkA231RCryYqS4SFCh bnTkP2ZiVBQfmXzlJvE9 y6Q7Qs4UM5R0XN92ZI46 yVBbb6C2fIA2Y8No XGHgkfybdrbiiST9UNRx VXJrpA68Nd2opWqyUc2t XBOnZZT4EKNxjIDlD7Un zF2qQsLiKWMjMUXe V1WeyJZbQCbiB960MYcw UdY5XDXqxeSzG6AuIGSf uKjmZpT9y9B5Nj2CAYl0 HS34CT63uAVtc2J0 sIL9J4HpSUWwwofhiedm nQL5QINdCLGefW25Ko1v hVfjGv6dPQVoYBG6KJOf lGUfT9VdlK4vKmFp RQVkJLNbQ3IbzIShJNqv T823TRmkKbJ6RQCkowCu W9JsCHYpoXrpDqL6j3M8 Uv8XENRnFI10IJW2 fWU4KM58SX99Y5XtOpsi dGFibGU+PHRhYmxlIHdp ZHRoPScxMDAlJyBzdHls TC2zSt5yEWAiYXOv cHdqyKNgVmSxr7wiHSEq ZHuwTU4piJluO0NemOX8 MTQgx9m2Ft68N75oX0Kg dXA+TFEzwZU8mHP2 hC8lZwMqEyS8XHulF906 KiYonEFzKmmom7ifn2in yQo7QkN1HKPfpaIlzPev GME7p3HmCz44X05h IHdpZHRoPSIxNSUiIHZh cJjzkw5nlQ5qOe4+PGNv xJV0iTL9dK5lXzJeFhD5 CFgwG743VpIvnHWm Aijma5snx4sjkUh5DnPb LWAodyCmhBgtZOR4i8Zl Au71L5NxrLdge9BsNiw2 tn05rEDtb6C5cML9 O8YkVXWjmdhvdHQtqKzh BV4pSGGobdcyZSBqjC2b ADDxQ3h5IsSrLcW7TNoz S9WpziK0MPBwoBZn RGidNUR3N80xk6D9FDHg JAHqXZS8eLA7rX4osGcy bjogbGVmdDsgdmVydGlj FWlxSEemR708QKMf tOmbTKHriS2lVJYdwCMb aOosWQ8vKLUhythrDpqM LXvRMV4GBHVDNdOTQHCn TDwvdGQ+PHRkIHN0 jDazTSxgTSGcoL7rAVGl W3w9LsUsJaW6SPbnI8Xw VBKfykemKl83fM5aKxQp GyD6VPuqD9OyyqI7 FXXfePOzBIezAVX0Q11o u4J8WQKjPYHqLFB7aJJ0 iO5roSzuuzhcpABrxAwl dmVydGljYWwtYWxp W727QVElbJwbCqTwBxXx WtU8ZlC5Q8TdDzp4VWRu jKsgXI4foBXhGSqwVh0q wVgsnGxnGY2nEAJj xmqnWXChjB2dIOFhsJUn gYtnAZ9zYJBksmvgi686 OhEwAWF7CXFqgQBgW3Ig hE4hVtWyEDChWSXc F4SbtEDbOJiwT153FDkj FqW8IWUqygPmI8TfCGTm lIwbNlV3v8C4Zr86WWQG ZWFyczwvdGQ+PHRk WBU9xFueRKrdNVGfxX0c KJOrC8k7ZvLbEjC8UWbg J5ZoESIfvaqoEn43vT5f AxUsMxY2ZWhaQ3Yt bgB7PBXvtOOuFQghTXF6 G12yv2I1WFHeUWJjFAS9 qVH4nY9noXbvpshuiQKj dDsgdmVydGljYWwt QUjzV814FUXqiFqfZfSl bWFsZTwvdGQ+PHRkIHN0 dGulPPdrSQZmwQ6lCVFg T3y5QeXeKzW1FOyr O9XiUKUzfrpqMv10jB8e KiGeIxD7DHcxH6KfweB9 TWWhhIZaCOqpVIW1S44o v5Z8CHMdWGXsPSD0 uQD2eS1ytCygahvkmKMj dDsgdmVydGljYWwtYWxp P622XJPwyCxgCnEzV9Xx cmluZzwvdGQ+PC90 zc39L7NhLulfBfd9VZHg QKH0gLZ8zD8mKDFhHJxu f1K1vOF3L2GjvaLccd7e v0clDWKyAWvaC68v cFFiy6V4KTUyrMV4LWIe aDvaVgHibZ06Tvm+PGNv xGrsj1SiRbkvy0njq4xx zZd0MnMiMNYilkIt wQhsYFU2f5FaZc84E78n IHdpZHRoPSIzMCUiIHZh lMlvea9jhP9oXm2+PGNv oIR4zLF8dG5xUbOx GfM8OOzuR677BjNocTTf Tuuwz3snx8bxyJg6WsZv LXToptAazCpqSSA6q4Ut Bc14Y9QzgYaps4Sw Gno5rb56cGCaj1M7xDT2 M9RyUERxlyabiIFmtYrl KD5uHJMxcvucMMMpcC9f IIEvK9q4NmRhHhB1 TGmwR1YdspS0MCKwrXQv ZKUqjROZyP5kuqugz6pv ouanRvBqOGIiYLw4GCw9 LWFsaWduOiBsZWZ0 UtS8UMA8pAUbeA0pjDvb wxtzmL6qTnl+MQf0b8ow pVYeXU7xrPD1HI34KF77 oRWje6P3nKU0M0Pi KIFxrimjlteetCS1ITZp NZVsrH69Yc4jcGzyCr5r APHfMTB9MVLytKDoK4Ev jE5bLxHaGCAcKNMc G1TwyTNwCZmjC243JBqd ClQ8HZGfotVlR0RaVBKn fCxaVqM2t2L7Vy8NQX43 WS85ME77pJRwj9O3 jTP2P1BdEXBbozbadtmv rEZ4WCYzOFImnN64Ll4c aBzfEg3bUQTcDZW4SUOb mFRiM1UjxB7oImGq FEKjIWKnT1ByuIFuSSrc E179UQpnFjU3BQMnspOu K4YfROBkfPrvKrG0h1E4 Zp4INo07ME80KT84 oJPzg1E3eXP0T3VgJNIa qlnumrlriOD4HBXaUXNo uB36Qn7syVvrWl9jSHLl BYE9SOAhzLFfY5Xu aI4wRjHuFTBkEAImM0Ml sRIsRHulT944KDzePsV6 QLDrovXqT7XcGHSqtNfl NsI9r2M0Ih0SAOgu pdh4B9ThXsbwaWT+PC90 SJSiGQ49cYDkiOQiy6ua kZs3DrJlLXThMMK4jGcs ENxox6ZxHDUtZ91p bGFw (more content not included)... Normal [facility] COVID-19 ([facility])on 01-17-2022 SARS-CoV-2 (COVID-19) RNA PAVAN+probe Ql (Resp) Detected Abnormal Not Detected [facility] Comment on above: Result Comment: This test result should be correlated with clinical presentations and medical history by a healthcare provider to determine its clinical significance. This assay was performed by a reverse transcriptase real-time polymerase chain reaction (rt PCR) method on the [employer] system. This test has been authorized only [...] or revoked sooner. Performed By: #### 2 [id number] ####[facility] [id number] [place] [address] SARS-CoV-2 (COVID-19) RNA PAVAN+probe Ql (Unsp spec) Pass Normal Pass [facility] Comment on above: Performed By: #### 2 [id number] ####[place] [address] Specimen source Nom (Unsp spec) Nasal Normal [facility] Comment on above: Performed By: #### 2 [id number] ####[place] [address] ADMITTED TO INTENSIVE CARE UNIT FOR CONDITION OF INTEREST:FIND:PT: Unknown Normal [facility] Comment on above: Performed By: #### 2 [id number] ####[place] [address] EMPLOYED IN A HEALTHCARE SETTING:FIND:PT: Unknown Normal [facility] Comment on above: Performed By: #### 2 [id number] ####[place] [address] FIRST TEST FOR CONDITION OF INTEREST:FIND:PT: Unknown Normal [facility] Comment on above: Performed By: #### 2 [id number] ####[place] [address] HAS SYMPTOMS RELATED TO CONDITION OF INTEREST:FIND:PT: Unknown Normal [facility] Comment on above: Performed By: #### 2 [id number] ####[place] [address] HOSPITALIZED FOR CONDITION OF INTEREST:FIND:PT: Unknown Normal [facility] Comment on above: Performed By: #### 2 [id number] ####[place] [address] STATUS:FIND:PT: Unknown Normal [facility] Comment on above: Performed By: #### 2 [id number] ####[place] [address] RESIDES IN A CONGREGATE CARE SETTING:FIND:PT: Unknown Normal [facility] Comment on above: Performed By: #### 2 [id number] ####[place] [address] Consent for Treatmenton 0 Consent for Treatment [id number] 3#1.00CD:127 [facility] Physician Orderon 01-17-2022 Physician Order [id number] #1.00CD:127 [facility] Vital Signs Date Time Vital Sign Value Performing Clinician Helen jacome 05-17-2022 13:43-0500 Blood Pressure Location Vinod NILL [facility] 05-17-2022 13:43-0500 Diastolic blood pressure 86 mm[Hg] Vinod NILL [facility] 05-17-2022 13:43-0500 Heart rate 72 /min Vinod NILL [facility] 05-17-2022 13:43-0500 Respiratory rate 16 /min Vinod NILL [facility] 05-17-2022 13:43-0500 Systolic blood pressure 122 mm[Hg] Vinod NILL [facility] Encounters Encounter Date Encounter Type Care Provider Facility Start: 10-26-2022 End: 10-26-[address] ELEUTERIO CARRANZA . Facility: Start: 09-30-2022 End: 10-01-[address] ELEUTERIO CARRANZA . Facility: Start: 08-12-2022 End: 08-13-[address] ELEUTERIO CARRANZA . Facility: Start: 07-08-2022 End: 07-09-2022 ambulatory Vinod BUSBY Facility:[facility] Start: 06-22-2022 End: 06-23-2022 ambulatory Vinod BUSBY Facility:CD:[id number] Start: 06-20-2022 Encounter for preprocedural laboratory examination DR ELEUTERIO CARRANZA . [facility] Start: 06-17-2022 End: 06-18-2022 Encounter for [...] 02-17-2022 End: 02-18-2022 ambulatory Eleuterio Carranza PROVIDER Facility:[facility] Start: 02-17-2022 End: 02-17-2022 Patient encounter procedure Eleuterio Carranza [facility] Start: 01-17-2022 End: 04-18-2022 ambulatory AYAAN BAH Facility:[facility] Start: 01-17-2022 End: 04-17-2022 Recurring AYAAN BAH [facility] Procedures Date Procedure Procedure Detail Performing Clinician Start: 08-10-2011 Colonoscopy Vinod AGARWAL Appendectomy Vinod BUSBY Cholecystectomy Vinod BUSBY Colonoscopy Vinod BUSBY Dilation and curettage Yeison BUSBY Exploratory laparotomy Yeison BUSBY Total hysterectomy v ia vaginal approach Vinod BUSBY Immunizations Immunization Date Immunization Notes Care Provider Fa cility NEGATED: Highlighted row has not occurred!05-17-2022 influenza virus vaccine, unspecified formulation Vinod BUSBY [facility] [place] Payers Date Payer Category Payer Unknown [id number] 2.16.8 [id number] 1971 Unknown [id number] 2.16.8 40.1.644741.3.579.2.727 1971 Unknown [id number] 2.16.8 40.1.070291.3.579.2.727 1971 Unknown [id number] 2.16.8 40.1.604422.3.579.2.727 1971 Unknown [id number] 2.16.8 40.1.919270.3.579.2.727 1971 Unknown [id number] 2.16.8 40.1.306340.3.579.2.727 1971 Unknown [id number] 2.16.84 0.1.431571.3.579.2.593 1971 Unknown [id number] 2.16.84 0.1.734642.3.579.2.593 1971 Unknown [id number] 2.16.84 0.1.739768.3.579.2.593 1971 Unknown [id number] 2.16.84 0.1.722530.3.579.2.593 1971 Unknown [id number] 2.16.84 0.1.351450.3.579.2.593 1971 Unknown [id number] 2.16.84 0.1.296122.3.579.2.593 1971 Unknown [id number] 2.16.84 0.1.591609.3.579.2.593 1971 Unknown [id number] 2.16.84 0.1.544218.3.579.2.593 1971 Unknown [id number] 2.16.84 0.1.862730.3.579.2.593 1971 Unknown [id number] 2.16.84 0.1.762556.3.579.2.593 1971 Unknown [id number] 2.16.84 0.1.686867.3.579.2.593 1971 Unknown [id number] 2.16.84 0.1.217089.3.579.2.593 1971 Unknown [id number] 2.16.84 0.1.993264.3.579.2.593 1971 Unknown [id number] 2.16.84 0.1.050931.3.579.2.593 1971 Unknown [id number] 2.16.84 0.1.335956.3.579.2.593 1958 Medicaid [id number] 1958 Self-pay 1958 Unknown [id number] Social History Date Type Detail Facility [facility] Comment on above: denies Sex Assigned At Female [facility] Tobacco smoking status No Smokin g Status Entered [facility] Start: 05-17-2022 Tobacco smoking status Heavy t obacco smoker (finding) [facility] [place] Tobacco smoking status Never Gener al [facility] [place] Functional Status Date Assessment Result Facility 05-17-2022 Functional Status N/A [facility] 06-22-2022 Note Date & Type [...] pathology results. CC: Eleuterio Carranza M.D. [facility] Clinical Note 05-17-2022 Note Date & [...] vaccine, inactivated - Not Given Patient Refuses [facility] Comment on above: Result Comment: Elec tronically Signed By: Vinod BUSBY MD\.br\Date and Time Signed: 05/17/22 14:41 EST Evaluation + Plan note 02-17-2022 Note Date & Type Note Facility 02-17-2022 Evaluation + Plan note Diagnostic Tests PendingInsulin Level Total 02/17/22 [facility] Evaluation + Plan note Note Date & Type Note Facility Evaluation + Plan note Future Appointments Appointment Date:04/29/2022 01:00:00 PM Scheduled Provider:Vinod BUSBY MD Location:[facility] Appointment Type:[address] Hospital course Narrative Note Date & Type Note Facility Hospital course Narrative No data available for this section [facility] Hospital Discharge instructions Note Date & Type Note Facility Hospital Discharge instructions No data available for this section [facility] Progress note Note Date & Type Note Facility Progress note No data available for this section [facility] Summary Purpose Family History No Family History Records FoundNo Family History Records Found Advance Directives No Advanced Directives Records FoundNo Advanced Directives Records Found Additional Source Comments Care Team (unrecognized sect ion and content) Personnel Name: Eleuterio Carranza MD Address: [address] [place] [address] Personnel Name: Eleuterio Carranza MD Address: Address: [address] [place] [address] [place] [address]- Personnel Name: Eleuterio Carranza MD Address: Address: [address] [place] [address] [place] [address]- INFORMATION SOURCE (unrecogn ized section and content) DATE CREATED AUTHOR 07/14/2022 [facility] DATE CREATED AUTHOR AUTHOR'S HERON ATION 10/27[facility]2022 [facility] PERTAINING TO PATIENTS WHO ARE [...] BE BASED ON THE PRIMARY CLINICAL RECORDS. [facility]. provides no warranty or guarantee of the accuracy or completeness of information in this document.
== END 2023-05-24 16:04 | disposition home or self-care (01) ==
LOC: INF 07:23
PROVIDERS: PCP Family Medicine; Visit Provider Internal Medicine Hematology & Oncology
DX: D72.829 Elevated white blood cell count, unspecified (principal); D64.9 Anemia, unspecified; I10 Essential (primary) hypertension; E78.5 Hyperlipidemia, unspecified; K21.9 Gastro-esophageal reflux disease without esophagitis; Z90.49 Acquired absence of other specified parts of digestive tract; Z90.710 Acquired absence of both cervix and uterus; F17.200 Nicotine dependence, unspecified, uncomplicated
CPT/HCPCS: 36415; 81374; 82306; 82533; 82607; 82728; 83540; 83550; 83615; 85025; 85652; 86038; 86140; 86200; 86430; 86431; G0463

== ENCOUNTER 2023-06-22 14:42 | Outpatient (OUT) | payer OTHER, SELFPAY ==
--- NOTE | 2023-06-22 14:46 | CT_ITS ---
The [address] [address] Patient Name: SYLVIE ALTAMIRANO MRN: [id number] date: 1970 Sex: F Assigned Patient Location: CT Current Patient Location: CT Accession/Order Number: [id number] Exam Date: 06/22/2023 15:50 Report Date: 06/22/2023 16:20 At the request of: EJ PHAM Procedure: CT abdomen pelvis w con EXAM: CT abdomen pelvis w con HISTORY: Leukocytosis , Pelvic Pain,History Of Toxic Shock Infection COMPARISON: None. TECHNIQUE: Axial CT images were obtained of the abdomen and pelvis with intravenous contrast. Multiplanar reconstructions were performed. ABDOMEN/PELVIS FINDINGS: Lower Chest: Unremarkable. Liver: There is a small cyst at the dome of the left hepatic lobe. The liver is enlarged measuring 21 cm Biliary/Gallbladder: Prior cholecystectomy. Pancreas: Unremarkable. Spleen: The spleen is mildly enlarged measuring 14.9 cm. Adrenal Glands: Unremarkable. Kidneys: There is a small cyst in the upper pole the left kidney. Gastrointestinal/Peritoneum: No acute abnormality. Prior appendectomy. No free air or free fluid. Vascular: Unremarkable. Lymph Nodes: No enlarged lymph nodes by CT size criteria. Pelvic Organs: Prior hysterectomy. Bladder: Unremarkable. Bones: No acute osseous abnormality. Mild multilevel degenerative changes are present in the visualized spine. Soft tissues: Unremarkable. CT/CT abdomen pelvis w con IMPRESSION: 1. No acute abnormality of the abdomen and pelvis. 2. Hepatosplenomegaly. 3. Prior cholecystectomy, hysterectomy and appendectomy. Electronically authenticated by: JOSE ZUNIGA Date: 06/22/2023 16:20
--- OUTSIDE RECORDS SUMMARY | 2023-06-22 14:47 | XMS_ITS | CCD ---
Author Name Unknown Address [address] [place] [address] Organization [facility] Care Team Providers Care Director Of Staff Development Name Role Phone Eleuterio Carranza Primary Care Physician Vinod BUSBY Attending Unavailable Hoy PROVIDER, Eleuterio Referring Unavailabl e NILL, Vinod Odonnell Attending Unavailable NILL, Vinod Odonnell Attending Unavailable NIURKA, AYAAN S Referring Unavailable NIURKA, AYAAN S Attending Unavailable NIURKA, AYAAN S Consulting Unavailable NIURKA, AYAAN S Admitting Unavailable NIURKA, AYAAN S Consulting Unavailable Hoy PROVIDER, Eleuterio Attending Unavailabl e Hoy PROVIDER, Eleuterio Admitting Unavailabl e Hoy PROVIDER, Eleuterio Referring Unavailabl e NILL, Vinod Odonnell Attending Unavailable HOY ., DR MCCLELLAN Primary Care Unavailable HOY ., DR MCCLELLAN Consulting Unavailable HOY ., DR MCCLELLAN Admitting Unavailable HOY ., DR MCCLELLAN Attending Unavailable HOY ., DR MCCLELLAN Consulting Unavailable HOY ., DR MCCLELLAN Attending Unavailable HOY ., DR MCCLELLAN Admitting Unavailable HOY ., DR MCCLELLAN Primary Care Unavailable HOY ., DR MCCLELLAN Primary Care Unavailable HOY ., DR MCCLELLAN Admitting Unavailable HOY ., DR MCCLELLAN Attending Unavailable HOY ., DR MCCLELLAN Consulting Unavailable HOY ., DR MCCLELLAN Attending Unavailable HOY ., DR MCCLELLAN Admitting Unavailable HOY ., DR MCCLELLAN Primary Care Unavailable HOY ., DR MCCLELLAN Admitting Unavailable HOY ., DR MCCLELLAN Primary Care Unavailable HOY ., DR MCCLELLAN Attending Unavailable NILL ., DR YOUSIF Consulting Unavailable NILL ., DR YOUSIF Attending Unavailable NILL ., DR YOUSIF Admitting Unavailable HOY ., DR MCCLELLAN Primary Care Unavailable KARLA MONTES Consulting Unavailable MATTIE ALTAMIRANO Consulting Unavailable NILL ., DR YOUSIF Consulting Unavailable NILL ., DR YOUSIF Attending Unavailable NILL ., DR YOUSIF Admitting Unavailable HOY ., DR MCCLELLAN Primary Care Unavailable HOY ., DR MCCLELLAN Primary Care Unavailable HAY ., DR GARDUNO Admitting Unavailable HAY ., DR GARDUNO Consulting Unavailable HAY ., DR GARDUNO Attending Unavailable PILO ELIAS Consulting Unavailable HOY ., DR MCCLELLAN Consulting Unavailable HOY ., DR MCCLELLAN Attending Unavailable HOY ., DR MCCLELLAN Admitting Unavailable HOY ., DR MCCLELLAN Primary Care Unavailable HOY ., DR MCCLELLAN Consulting Unavailable HOY ., DR MCCLELLAN Attending Unavailable HOY ., DR MCCLELLAN Admitting Unavailable HOY ., DR MCCLELLAN Primary Care Unavailable HOY ., DR MCCLELLAN Consulting Unavailable HOY ., DR MCCLELLAN Admitting Unavailable HOY ., DR MCCLELLAN Attending Unavailable HOY ., DR MCCLELLAN Primary Care Unavailable HOY ., DR MCCLELLAN Primary Care Unavailable HOY ., DR MCCLELLAN Consulting Unavailable HOY ., DR MCCLELLAN Admjanina Unavailable HOY ., DR MCCLELLAN Attending Unavailable ZIEBER, DR YUNIOR Odonnell Consulting Unavailable HOY ., DR MCCLELLAN Consulting Unavailable HOY ., DR MCCLELLAN Attending Unavailable HOY ., DR MCCLELLAN Admitting Unavailable HOY ., DR MCCLELLAN Primary Care Unavailable ZIEBER, DR YUNIOR Odonnell Consulting Unavailable HOY ., DR MCCLELLAN Consulting Unavailable HOY ., DR MCCLELLAN Admitting Unavailable HOY ., DR MCCLELLAN Primary Care Unavailable HOY ., DR MCCLELLAN Attending Unavailable HOY ., DR MCCLELLAN Consulting Unavailable HOY ., DR MCCLELLAN Admjanina Unavailable HOY ., DR MCCLELLAN Primary Care Unavailable HOY ., DR MCCLELLAN Attending Unavailable [place], DR MOISE Diaz Consulting Unavailable Allergies Allergy Classification Reported Allergen(s) Allergy Type Date of Onset Reaction(s) Facility (2 sources) venlafaxine; Translations: [venlafaxine] Drug Allergy Dizziness (finding) [facility] [place] (1 source) venlafaxine Drug Allergy [facility] Repository Medications Current Medications Medication Drug Class(es) Dates Sig (Normalized) Sig (Original) acetaminophen 325 mg / HYDROcodone bitartrate 5 mg oral tablet (2 sources) Opioid Agonist Start: 03-06-2017 [place] 325 mg-5 mg oral tablet See Instructions, for pain, 12 tab(s), Refill(s) 0, 1-2 tab(s) Oral q4-6hr not to exceed 3000 mg acetaminophen per day Start Date: 03/06/17 Status: Ordered 24 hr buPROPion hydrochloride 150 mg extended release oral tablet (1 source) Aminoketone Start: 04-25-2022 take 1 tablet by mouth once daily Wellbutrin XL 150 mg/24 hours Tab-ER 150 mg = 1 tab(s), Oral, Daily, Refills(s) 0 Start Date: 04/25/22 Status: Ordered diclofenac sodium 75 mg delayed release oral tablet (1 source) Nonsteroidal Anti-inflammatory Drug Start: 04-25-2022 take 1 tablet by mouth twice daily diclofenac sodium 75 mg Oral EC Tab 75 mg = 1 tab(s), Oral, BID, Refills(s) 0 Start Date: 04/25/22 Status: Ordered Dulera 100 mcg-5 mcg/inh inhalation aerosol (1 source) Start: 04-25-2022 take 2 puff(s) by inhalation twice daily Dulera 100 mcg-5 mcg/inh inhalation aerosol 2 puff(s), Inhalation, BID, Refill(s) 0 Start Date: 04/25/22 Status: Ordered Fish Oils (2 sources) Start: 03-06-2017 Fish Oil Oral, Refill(s) 0 Start Date: 03/06/17 Status: Ordered hyoscyamine sulfate 0.125 mg oral tablet (1 source) Start: 04-25-2022 take 1-2 tablets under the tongue four times daily as needed Levsin 0.125 mg SL Tab 1-2 tabs, SubLingual, QID, PRN abdominal cramping, Refills(s) 0 Start Date: 04/25/22 Status: Ordered ibuprofen 600 mg oral tablet (2 sources) Nonsteroidal Anti-inflammatory Drug Start: 02-07-2013 take 1 tablet by mouth every six hours as needed for pain Motrin 600 mg Tab = 1 tab(s), Oral, q6hr, PRN PRN Pain, # 30 tab(s), Refills(s) 0, 0, Print Requisition Start Date: 02/07/13 Status: Ordered Multivitamins and Minerals (3 sources) Start: 03-06-2017 Multivitamins and Minerals Refill(s) 0 Start Date: 03/06/17 Status: Ordered naproxen 500 mg oral tablet (4 sources) Nonsteroidal Anti-inflammatory Drug Start: 03-06-2017 take 1 tablet by mouth twice daily Naprosyn 500 mg Tab 500 mg = 1 tab(s), Oral, BID, # 20 tab(s), Refills(s) 0, Pharmacy: [facility] 1984 Start Date: 07/27/18 Status: Ordered Prilosec (2 sources) Proton Pump Inhibitor Start: 03-06-2017 Prilosec Oral, Daily, Refills(s) 0 Start Date: 03/06/17 Status: Ordered pantoprazole 40 mg delayed release oral tablet (1 source) Proton Pump Inhibitor Start: 04-25-2022 take 1 tablet by mouth once daily Pantoprazole [address] Tab 40 mg = 1 tab(s), Oral, Daily, Refills(s) 0 Start Date: 04/25/22 Status: Ordered Probiotic Formula (2 sources) Start: 03-06-2017 take 1 capsule by mouth once daily Probiotic Formula 1 cap(s), Oral, Daily, Refill(s) 0 Start Date: 03/06/17 Status: Ordered Problems Active Problems Problem Classification Problem Date Documented Da te Episodic/Chronic Allergic reactions (1 source) 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 Anxiety disorders (1 source) Posttraumatic stress disorder 04-25-2022 Chronic Asthma (1 source) Unspecified asthma with (acute) exacerbation; Translations: [UNS ASTHMA W/ACUTE EXACERBATION] Onset: 10-27-2022 Chronic Conditions associated with dizziness or vertigo (1 source) Meniere's disease 04-25-2022 Chronic Deficiency and other anemia (1 source) Anemia, unspecified; Translations: [ANEMIA UNSPECIFIED] Onset: 08-15-2022 Episodic Diabetes mellitus without complication (1 source) Other abnormal glucose; Translations: [OTHER ABNORMAL GLUCOSE] Onset: 08-15-2022 Episodic Essential hypertension (4 sources) Essential (primary) hypertension; Translations: [ESSENTIAL PRIMARY HYPERTENSION] Onset: 04-08-2022 Chronic Hemorrhoids (1 source) Hemorrhoids 04-25-2022 Episodic Lymphadenitis (1 source) Generalized enlarged lymph nodes; Translations: [GENERALIZED ENLARGED LYMPH NODES] Onset: 08-15-2022 Episodic Nutritional deficiencies (1 source) Vitamin D deficiency, unspecified; Translations: [VITAMIN D DEFICIENCY UNSPECIFIED] Onset: 08-15-2022 Chronic Osteoarthritis (1 source) Bilateral primary osteoarthritis of knee; Translations: [BILATERAL PRIM OSTEOARTHRITIS KNEE] Onset: 04-01-2022 Chronic Other aftercare (1 source) Other shelter (current) drug therapy; Translations: [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] Onset: 10-27-2022 Episodic Other and unspecified benign neoplasm (2 sources) History of polyp of colon; Translations: [Personal history of colonic polyps] Onset: 05-17-2022 Episodic Other gastrointestinal disorders (1 source) Irritable bowel syndrome 04-25-2022 Chronic Other infections; including parasitic (1 source) History of Helicobacter pylori infection 04-25-2022 Episodic Other lower respiratory disease (3 sources) Shortness of breath; Translations: [SHORTNESS OF BREATH] Onset: 10-26-2022 Episodic Other non-traumatic joint disorders (5 sources) Pain in unspecified joint; Translations: [PAIN IN UNSPECIFIED JOINT] Onset: 06-20-2022 Episodic Other nutritional; endocrine; and metabolic disorders (1 source) Body mass index 40+ - severely obese 05-17-2022 Chronic Other nutritional; endocrine; and metabolic disorders (1 source) Overweight; Translations: [OVERWEIGHT] Onset: 08-15-2022 Episodic Other upper respiratory infections (5 sources) Streptococcal pharyngitis; Translations: [STREPTOCOCCAL PHARYNGITIS] Onset: 08-15-2022 Episodic Residual codes; unclassified (1 source) Sleep apnea 04-25-2022 Chronic Residual codes; unclassified (1 source) Family history of malignant neoplasm of digestive organ; Translations: [Family history of malignant neoplasm of digestive organs] Onset: 05-17-2022 Episodic Residual codes; unclassified (1 source) Family history of cancer of colon 05-17-2022 Episodic Screening and history of mental health and substance abuse codes (3 sources) H/O: anxiety state; Translations: [H/O: depression] Onset: 10-27-2022 04-25-2022 Episodic Substance-related disorders (1 source) Nicotine dependence, cigarettes, uncomplicated; Translations: [NICOTINE DEPEND CIGARETTES UNCOMP] Onset: 06-28-2022 Chronic Unclassified (1 source) CONTACT W/AND (SUSP) EXPOS COVID-19; Translations: [CONTACT W/AND (SUSP) EXPOS COVID-19] Onset: 06-20-2022 Past or Other Problems Problem Classification Problem Date Documented Date Episodic/Chronic Cardiac dysrhythmias (4 sources) Palpitations; Translations: [PALPITATIONS] Onset: 05-03-2022 Episodic Chronic obstructive pulmonary disease and bronchiectasis (2 sources) Bronchitis; Translations: [Bronchitis, not specified as acute or chronic] Onset: 06-20-2022 Episodic Other and unspecified benign neoplasm (1 source) Benign neoplasm of sigmoid colon; Translations: [BENIGN NEOPLASM OF SIGMOID COLON] Onset: 06-28-2022 Episodic Other and unspecified benign neoplasm (1 source) Personal history of colonic polyps; Translations: [PERSONAL HISTORY OF COLONIC POLYPS] Onset: 06-28-2022 Episodic Other hematologic conditions (4 sources) Elevated erythrocyte sedimentation rate; Translations: [ELEVATED ERYTHROCYTE SED RATE] Onset: 03-29-2022 Episodic Other screening for suspected conditions (not mental disorders or infectious disease) (10 sources) Encounter for screening for malignant neoplasm of colon; Translations: [Encounter for screening for malignant neoplasm of rectum] Onset: 04-10-2022 Episodic Residual codes; unclassified (1 source) Family history of malignant neoplasm of digestive organs; Translations: [FAM HX MALIG NEOPLASM DIGESTIV ORGN] Onset: 06-28-2022 Episodic Residual codes; unclassified (1 source) Acquired absence of both cervix and uterus; Translations: [ACQUIRED ABSENCE BOTH CERVIX AND UTERUS] Onset: 06-28-2022 Episodic Residual codes; unclassified (1 source) Personal history of other specified conditions; Translations: [PERSONAL HISTORY OTH SPEC CONDITION] Onset: 05-21-2022 Episodic Spondylosis; intervertebral disc disorders; other back problems (4 sources) Radiculopathy, lumbar region; Translations: [RADICULOPATHY LUMBAR REGION] Onset: 05-06-2022 Episodic Syncope (4 sources) Syncope and collapse; Translations: [SYNCOPE AND COLLAPSE] Onset: 03-08-2022 Episodic Viral infection (1 source) Disease caused by 2019-nCoV; Translations: [COVID-19] Results Test Name Value Interpretation Reference Range Facility XR CHEST 1 Von 10-26-2022 XR CHEST 1 V CXR HISTORY: Shortness of breath COMPARISON: None. TECHNIQUE: 1 view chest submitted for review. FINDINGS: The lungs are adequately expanded without evidence of acute infiltrate or effusion. The cardiac silhouette measures within normal. Pulmonary vascularity is unremarkable. Osseous structures do not demonstrate any acute abnormality allowing for the changes of a one view chest. IMPRESSION: No plain film evidence for acute cardiopulmonary disease. Electronically authenticated by: PILO ELIAS Date: 2022-10-26 19:03 Normal [facility] CULTURE BLOODon 09-30-2022 Microscopic examination of blood, culture Culture Observations: NO GROWTH AT 5 DAYS. Normal [facility] Comment on above: Performed By: #### T 7, TSH, LIPID, CMP #### [facility] [address] [place] [address] Dr. Sona Cruz Microscopic examination of blood, culture Culture Observations: NO GROWTH AT 5 DAYS. Normal [facility] Comment on above: Performed By: #### T 7, TSH, LIPID, CMP #### [facility] [address] [place] [address] Dr. Sona Cruz CULTURE URINEon 09-30-2022 CULTURE URINE Culture Observations: NO GROWTH. Normal [facility] Comment on above: Performed By: #### T 7, TSH, LIPID, CMP #### [facility] [address] [place] [address] Dr. Sona Cruz UA RANDOM W/MICROSCOPICon BACTERIA NONE SEEN Normal NONE SEEN [facility] Comment on above: Performed By: #### T 7, TSH, LIPID, CMP #### [facility] [address] [place] [address] Dr. Sona Cruz Bilirubin Ql (U) Negative Normal NEGATIVE [facility] Comment on above: Performed By: #### T 7, TSH, LIPID, CMP #### [facility] [address] [place] [address] Dr. Sona Cruz CAST NONE SEEN Normal NONE SEEN [facility] Comment on above: Performed By: #### T 7, TSH, LIPID, CMP #### [facility] [address] [place] [address] Dr. Sona Cruz Clarity (U) CLEAR Normal CLEAR [facility] Comment on above: Performed By: #### T 7, TSH, LIPID, CMP #### [facility] [address] [place] [address] Dr. Sona Cruz Color (U) LT. YELLOW Normal YELLOW [facility] Comment on above: Performed By: #### T 7, TSH, LIPID, CMP #### [facility] [address] [address] [address] Sona Cruz Crystals LM Nom (Urine sed) SEEN Abnormal NONE SEEN [facility] Comment on above: Performed By: #### T 7, TSH, LIPID, CMP #### [facility] [address] [address] [address] Sona Cruz Epithelial cells LM Ql (Urine sed) FEW Abnormal NONE SEEN /RARE [facility] Comment on above: Performed By: #### T 7, TSH, LIPID, CMP #### [facility] [address] [address] [address] Sona Cruz Glucose Ql (U) Negative Normal NEGATIVE [facility] Comment on above: Performed By: #### T 7, TSH, LIPID, CMP #### [facility] [address] [place] [address] Dr. Sona Cruz Hemoglobin Ql (U) Negative Normal NEGATIVE [facility] Comment on above: Performed By: #### T 7, TSH, LIPID, CMP #### [facility] [address] [place] [address] Dr. Sona Cruz Ketones Ql (U) Negative Normal NEGATIVE [facility] Comment on above: Performed By: #### T 7, TSH, LIPID, CMP #### [facility] [address] [place] [address] Dr. Sona Cruz LEUKOCYTES Negative Normal NEGATIVE [facility] Comment on above: Performed By: #### T 7, TSH, LIPID, CMP #### [facility] [address] [address] [address] Sona Cruz MUCOUS NONE SEEN Normal NONE SEEN [facility] Comment on above: Performed By: #### T 7, TSH, LIPID, CMP #### [facility] [address] [place] [address] Dr. Sona Cruz Nitrite Ql (U) Negative Normal NEGATIVE [facility] Comment on above: Performed By: #### T 7, TSH, LIPID, CMP #### [facility] [address] [place] [address] Dr. Sona Cruz pH (U) 5.5 [pH] Normal 5-9 [facility] Comment on above: Performed By: #### T 7, TSH, LIPID, CMP #### [facility] [address] [place] [address] Dr. Sona Cruz RBC 0-2 Normal 0-2 [facility] Comment on above: Performed By: #### T 7, TSH, LIPID, CMP #### [facility] [address] [place] [address] Dr. Sona Cruz SPEC GRAVITY 1.025 Normal 1.005-<=1.025 [facility] Comment on above: Performed By: #### T 7, TSH, LIPID, CMP #### [facility] [address] [place] [address] Dr. Sona Cruz UA PROTEIN Negative Normal NEGATIVE/ TRACE [facility] Comment on above: Performed By: #### T 7, TSH, LIPID, CMP #### [facility] [address] [place] [address] Dr. Sona Cruz Urobilinogen Qn (U) 0.2 {Dayanna'U}/dL Normal 0.2 - 1. 0 [facility] Comment on above: Performed By: #### T 7, TSH, LIPID, CMP #### [facility] [address] [place] [address] Dr. Sona Cruz WBC 0-2 Abnormal NONE SEEN [facility] Comment on above: Performed By: #### T 7, TSH, LIPID, CMP #### [facility] [address] [place] [address] Dr. Sona Cruz VITAMIN B12on 09-30-2022 Cobalamin (Vitamin B12) [Mass/Vol] 383.0 pg/mL Normal 193.0-986.0 [facility] Comment on above: Performed By: #### V ITB12 #### [facility] [address] [place] [address] Dr. Sona Cruz DANIELLE-GARCIA VIRUS (EBV) AB PROFILEon 08-15-2022 EBV Ab VCA, IgG 71.8 U/mL Critically high 0.0-17.9 [facility] Comment on above: Result Comment: Nega tive <18.0 Equivocal 18.0 - 21.9 Positive >21.9 Performed By: #### T 7, TSH, LIPID, CMP #### [facility] [address] [address] [address] Sona Cruz EBV Ab VCA, IgM <36.0 Normal 0.0-35.9 [facility] Comment on above: Result Comment: Nega tive <36.0 Equivocal 36.0 - 43.9 Positive >43.9 Performed By: #### T 7, TSH, LIPID, CMP #### [facility] [address] [address] [address] Sona Cruz EBV Nuclear Antigen Ab, IgG 146.0 U/mL Critically high 0.0-17.9 [facility] Comment on above: Result Comment: Nega tive <18.0 Equivocal 18.0 - 21.9 Positive >21.9 Performed By: #### T 7, TSH, LIPID, CMP #### [facility] [address] [address] [address] Sona Cruz Interpretation: Comment Normal [facility] Comment on above: Result Comment: EBV Interpretation Chart [place]: Antibody Present + Antibody Absent - Interpretation VCA-IgM VCA-IgG EBNA-IgG . No previous infection/ - - - Susceptible Primary infection (new + + - or recent) Past Infection +or- + + See comment below* + - - *Results indicate infection with EBV at some time however cannot predict the timing of the infection since antibodies to EBNA usually develop after primary infection or, alternatively, approximately 5-10% of patients with EBV never develop antibodies to EBNA. Performed By: #### T 7, TSH, LIPID, CMP #### [facility] [address] [place] [address] Dr. Sona Cruz INSULINon 08-13-2022 Insulin 18.5 uIU/mL Normal 2.6-24.9 [facility] Comment on above: Performed By: #### T 7, TSH, LIPID, CMP #### [facility] [address] [address] [address] Sona Cruz CBC AUTO DIFFon 08-12-2022 BASO # 0.1 103/ul Normal 0.0-0.1 [facility] Comment on above: Performed By: #### T 7, TSH, LIPID, CMP #### [facility] [address] [place] [address] Dr. Sona Cruz Basophils/100 WBC (Bld) 0.5 % Normal 0.2-2.0 [facility] Comment on above: Performed By: #### T 7, TSH, LIPID, CMP #### [facility] [address] [place] [address] Dr. Sona Cruz EO # 0.1 103/ul Normal 0.0-0.7 [facility] Comment on above: Performed By: #### T 7, TSH, LIPID, CMP #### [facility] [address] [place] [address] Dr. Sona Cruz Eosinophils/100 WBC (Bld) 0.9 % Normal 0.9-7.0 [facility] Comment on above: Performed By: #### T 7, TSH, LIPID, CMP #### [facility] [address] [place] [address] Dr. Sona Cruz Erythrocyte distribution width (RBC) [Ratio] 14.4 % Normal 11.0-15.0 [facility] Comment on above: Performed By: #### T 7, TSH, LIPID, CMP #### [facility] [address] [place] [address] Dr. Sona Cruz Hematocrit (Bld) [Volume fraction] 41.8 % Normal 36.0-48.0 [facility] Comment on above: Performed By: #### T 7, TSH, LIPID, CMP #### [facility] [address] [place] [address] Dr. Sona Cruz Hemoglobin (Bld) [Mass/Vol] 14.0 g/dL Normal 12.0-16.0 [facility] Comment on above: Performed By: #### T 7, TSH, LIPID, CMP #### [facility] [address] [place] [address] Dr. Sona Cruz IG # 0.12 10e3/ul Critically high 0.00-0.03 [facility] Comment on above: Performed By: #### T 7, TSH, LIPID, CMP #### [facility] [address] [place] [address] Dr. Sona Cruz IG % 1.0 % Critically high 0.0-0.5 [facility] Comment on above: Performed By: #### T 7, TSH, LIPID, CMP #### [facility] [address] [place] [address] Dr. Sona Cruz LYMPH # 1.8 103/ul Normal 1.2-3.8 [facility] Comment on above: Performed By: #### T 7, TSH, LIPID, CMP #### [facility] [address] [place] [address] Dr. Sona Cruz Lymphocytes/100 WBC (Bld) 14.4 % Critically low 20.5-60.0 [facility] Comment on above: Performed By: #### T 7, TSH, LIPID, CMP #### [facility] [address] [place] [address] Dr. Sona Cruz MANUAL DIFF REQ NO Normal [facility] Comment on above: Performed By: #### T 7, TSH, LIPID, CMP #### [facility] [address] [place] [address] Dr. Sona Cruz MCH (RBC) [Entitic mass] 30.0 pg Normal 26.7-34.0 [facility] Comment on above: Performed By: #### T 7, TSH, LIPID, CMP #### [facility] [address] [place] [address] Dr. Sona Cruz MCHC (RBC) [Mass/Vol] 33.5 g/dL Normal 29.9-35.2 [facility] Comment on above: Performed By: #### T 7, TSH, LIPID, CMP #### [facility] [address] [place] [address] Dr. Sona Cruz MCV (RBC) [Entitic vol] 89.5 fL Normal 81.0-99.0 [facility] Comment on above: Performed By: #### T 7, TSH, LIPID, CMP #### [facility] [address] [place] [address] Dr. Sona Cruz MONO # 0.8 103/ul Normal 0.3-0.8 [facility] Comment on above: Performed By: #### T 7, TSH, LIPID, CMP #### [facility] [address] [address] [address] Sona Cruz Monocytes/100 WBC (Bld) 6.6 % Normal 1.7-12.0 [facility] Comment on above: Performed By: #### T 7, TSH, LIPID, CMP #### [facility] [address] [address] [address] Sona Cruz NEUT # 9.5 103/ul Critically high 1.4-6.5 [facility] Comment on above: Performed By: #### T 7, TSH, LIPID, CMP #### [facility] [address] [address] [address] Sona Cruz Neutrophils/100 WBC (Bld) 76.6 % Critically high 43.0-75.0 [facility] Comment on above: Performed By: #### T 7, TSH, LIPID, CMP #### [facility] [address] [place] [address] Dr. Sona Cruz Platelet mean volume (Bld) [Entitic vol] 10.5 fL Normal 9.5-13.5 [facility] Comment on above: Performed By: #### T 7, TSH, LIPID, CMP #### [facility] [address] [address] [address] Sona Cruz PLT 261 103/ul Normal 150-450 [facility] Comment on above: Performed By: #### T 7, TSH, LIPID, CMP #### [facility] [address] [place] [address] Dr. Sona Cruz RBC 4.67 106/ul Normal 4.20-5.40 [facility] Comment on above: Performed By: #### T 7, TSH, LIPID, CMP #### [facility] [address] [place] [address] Dr. Sona Cruz WBC 12.4 103/ul Critically high 4.0-11.0 [facility] Comment on above: Performed By: #### T 7, TSH, LIPID, CMP #### [facility] [address] [address] [address] Sona Cruz CULTURE BLOODon 08-12-2022 Microscopic examination of blood, culture Culture Observations: NO GROWTH AT 5 DAYS. Isolate 1 BC_[id number] Normal [facility] Comment on above: Performed By: #### T 7, TSH, LIPID, CMP #### [facility] [address] [address] [address] Sona Cruz Microscopic examination of blood, culture Culture Observations: NO GROWTH AT 5 DAYS. Isolate 1 [id number] Normal [facility] Comment on above: Performed By: #### T 7, TSH, LIPID, CMP #### [facility] [address] [place] [address] Dr. Sona Cruz CULTURE URINEon 08-12-2022 CULTURE URINE Culture Observations: NO GROWTH. Normal [facility] Comment on above: Performed By: #### U RCX #### [facility] [address] [place] [address] Dr. Sona Cruz FREE THYROXINE INDEX T7on FTI 3.65 Normal 1.30-4.50 [facility] Comment on above: Performed By: #### T 7, TSH, LIPID, CMP #### [facility] [address] [place] [address] Dr. Sona Cruz T3U 38.0 % Normal 30.0-39.0 [facility] Comment on above: Performed By: #### T 7, TSH, LIPID, CMP #### [facility] [address] [place] [address] Dr. Sona Cruz T4 [Mass/Vol] 9.60 ug/dL Normal 4.80-13.90 [facility] Comment on above: Performed By: #### T 7, TSH, LIPID, CMP #### [facility] [address] [place] [address] Dr. Sona Cruz GLYCOHEMOGLOBIN A1Con 2022 ADA RECOMMENDATION SEE BELOW Normal [facility] Comment on above: Result Comment: ADA RECOMMENDED LIMIT 4.0 - 6.0 ADA THERAPEUTIC TARGET < 7.0 ACTION SUGGESTED > 7.0 Performed By: #### T 7, TSH, LIPID, CMP #### [facility] [address] [place] [address] Dr. Sona Cruz Glucose [Mass/Vol] 111 mg/dL Normal [facility] Comment on above: Performed By: #### T 7, TSH, LIPID, CMP #### [facility] [address] [address] [address] Sona Cruz HbA1c (Bld) [Mass fraction] 5.5 % Normal 4.5-6.2 [facility] Comment on above: Performed By: #### T 7, TSH, LIPID, CMP #### [facility] [address] [place] [address] Dr. Sona Cruz IRONon 08-12-2022 Iron [Mass/Vol] 71.0 ug/dL Normal 50.0-170.0 [facility] Comment on above: Performed By: #### T 7, TSH, LIPID, CMP #### [facility] [address] [place] [address] Dr. Sona Cruz LIPID PROFILEon 08-12-2022 CHOL-HDL RATIO NORM SEE BELOW Normal [facility] Comment on above: Result Comment: 3.3 - 4.4 LOW RISK 4.4 - 7.1 AVERAGE RISK 7.1 - 11.0 MODERATE RISK >11.0 HIGH RISK Performed By: #### T 7, TSH, LIPID, CMP #### [facility] [address] [place] [address] Dr. Sona Cruz Cholesterol [Mass/Vol] 216 mg/dL Critically high <=200 [facility] Comment on above: Performed By: #### T 7, TSH, LIPID, CMP #### [facility] [address] [place] [address] Dr. Sona Cruz Cholesterol in HDL [Mass/Vol] 64 mg/dL Critically high 40-60 [facility] Comment on above: Performed By: #### T 7, TSH, LIPID, CMP #### [facility] [address] [place] [address] Dr. Sona Cruz Cholesterol in LDL [Mass/Vol] 132.4 mg/dL Normal [facility] Comment on above: Performed By: #### T 7, TSH, LIPID, CMP #### [facility] [address] [place] [address] Dr. Sona Cruz Cholesterol.total/Cho lesterol in HDL [Mass ratio] 3.4 {ratio} Normal [facility] Comment on above: Performed By: #### T 7, TSH, LIPID, CMP #### [facility] [address] [address] [address] Sona Cruz HDL NORMAL > or = 60 mg/dl - LOW CARDIOVASCULAR RISK <40 mg/dl - HIGH CARDIOVASCULAR RISK Normal [facility] Comment on above: Performed By: #### T 7, TSH, LIPID, CMP #### [facility] [address] [place] [address] Dr. Sona Cruz LDL CALC NORMAL SEE BELOW Normal [facility] Comment on above: Result Comment: <100 mg/dl OPTIMAL 100 - 129 mg/dl NEAR OR ABOVE OPTIMAL 130 - 159 mg/dl BORDERLINE HIGH 160 - 189 mg/dl HIGH >190 mg/dl VERY HIGH Performed By: #### T 7, TSH, LIPID, CMP #### [facility] [address] [place] [address] Dr. Sona Cruz Triglyceride [Mass/Vol] 98 mg/dL Normal <=150 [facility] Comment on above: Performed By: #### T 7, TSH, LIPID, CMP #### [facility] [address] [address] [address] Sona Cruz VLDL CALC 19.6 mg/dL Normal [facility] Comment on above: Performed By: #### T 7, TSH, LIPID, CMP #### [facility] [address] [address] [address] Sona Cruz MONOon 08-12-2022 Monocytes (Bld) [#/Vol] Negative Normal NEGATIVE [facility] Comment on above: Performed By: #### I MADDI #### [facility] [address] [place] [address] Dr. Sona Cruz PROF 14(COMP METB)on 03-03-2 023 Albumin [Mass/Vol] 3.9 g/dL Normal 3.4-5.0 [facility] Comment on above: Performed By: #### T 7, TSH, LIPID, CMP #### [facility] [address] [place] [address] Dr. Sona Cruz Albumin/Globulin [Mass ratio] 1.1 {ratio} Normal [facility] Comment on above: Performed By: #### T 7, TSH, LIPID, CMP #### [facility] [address] [place] [address] Dr. Sona Cruz ALP [Catalytic activity/Vol] 106 U/L Normal 46-116 [facility] Comment on above: Performed By: #### T 7, TSH, LIPID, CMP #### [facility] [address] [place] [address] Dr. Sona Cruz ALT [Catalytic activity/Vol] 22 U/L Normal 14-59 [facility] Comment on above: Performed By: #### T 7, TSH, LIPID, CMP #### [facility] [address] [place] [address] Dr. Sona Cruz Anion gap [Moles/Vol] 12.5 mmol/L Normal [facility] Comment on above: Performed By: #### T 7, TSH, LIPID, CMP #### [facility] [address] [place] [address] Dr. Sona Cruz AST [Catalytic activity/Vol] 15 U/L Normal 15-37 [facility] Comment on above: Performed By: #### T 7, TSH, LIPID, CMP #### [facility] [address] [place] [address] Dr. Sona Cruz Bilirubin [Mass/Vol] 0.5 mg/dL Normal 0.2-1.0 [facility] Comment on above: Performed By: #### T 7, TSH, LIPID, CMP #### [facility] [address] [place] [address] Dr. Sona Cruz Calcium [Mass/Vol] 9.6 mg/dL Normal 8.5-10.1 [facility] Comment on above: Performed By: #### T 7, TSH, LIPID, CMP #### [facility] [address] [address] [address] Sona Cruz Chloride [Moles/Vol] 102 mmol/L Normal 98-107 [facility] Comment on above: Performed By: #### T 7, TSH, LIPID, CMP #### [facility] [address] [address] [address] Sona Cruz CO2 [Moles/Vol] 28.3 mmol/L Normal 21.0-32.0 [facility] Comment on above: Performed By: #### T 7, TSH, LIPID, CMP #### [facility] [address] [address] [address] Sona Cruz Creatinine [Mass/Vol] 0.62 mg/dL Normal 0.55-1.02 [facility] Comment on above: Performed By: #### T 7, TSH, LIPID, CMP #### [facility] [address] [address] [address] Sona Cruz EGFR-AF GREEK >60 Normal >=60 [facility] Comment on above: Performed By: #### T 7, TSH, LIPID, CMP #### [facility] [address] [address] [address] Sona Cruz EGFR-NON AF GREEK >60 Normal >=60 [facility] Comment on above: Performed By: #### T 7, TSH, LIPID, CMP #### [facility] [address] [address] [address] Sona Cruz Globulin (S) [Mass/Vol] 3.7 g/dL Normal [facility] Comment on above: Performed By: #### T 7, TSH, LIPID, CMP #### [facility] [address] [address] [address] Sona Cruz Glucose [Mass/Vol] 106 mg/dL Normal 74-106 [facility] Comment on above: Performed By: #### T 7, TSH, LIPID, CMP #### [facility] [address] [address] [address] Sona Cruz Potassium [Moles/Vol] 3.8 mmol/L Normal 3.5-5.1 [facility] Comment on above: Performed By: #### T 7, TSH, LIPID, CMP #### [facility] [address] [address] [address] Sona Cruz Protein [Mass/Vol] 7.6 g/dL Normal 6.4-8.2 [facility] Comment on above: Performed By: #### T 7, TSH, LIPID, CMP #### [facility] [address] [address] [address] Sona Cruz Sodium [Moles/Vol] 139 mmol/L Normal 136-145 [facility] Comment on above: Performed By: #### T 7, TSH, LIPID, CMP #### [facility] [address] [place] [address] Dr. Sona Cruz Urea nitrogen [Mass/Vol] 25.0 mg/dL Critically high 7.0-18.0 [facility] Comment on above: Performed By: #### T 7, TSH, LIPID, CMP #### [facility] [address] [place] [address] Dr. Sona Cruz Urea nitrogen/Creatinine [Mass ratio] 40.3 mg/mg Normal [facility] Comment on above: Performed By: #### T 7, TSH, LIPID, CMP #### [facility] [address] [place] [address] Dr. Sona Cruz PROTIMEon 08-12-2022 INR Coag (PPP) [Relative time] {INR} Normal [facility] Comment on above: Performed By: #### T 7, TSH, LIPID, CMP #### [facility] [address] [place] [address] Dr. Sona Cruz INR GUIDELINES SEE BELOW Normal [facility] Comment on above: Result Comment: CAROL RED INR: 2.0 - 3.0 CONDITIONS NOT LISTED BELOW 2.5 - 3.5 FOR PROSTHETIC HEART VALVE REPLACEMENT 2.5 - 3.5 RECURRENT THROMBOSIS Performed By: #### T 7, TSH, LIPID, CMP #### [facility] [address] [place] [address] Dr. Sona Cruz PT Coag (PPP) [Time] 9.7 s Normal 9.0-11.6 [facility] Comment on above: Performed By: #### T 7, TSH, LIPID, CMP #### [facility] [address] [place] [address] Dr. Sona Cruz PTTon 08-12-2022 aPTT Coag (Bld) [Time] 27.1 s Normal 22.3-36.2 [facility] Comment on above: Performed By: #### T 7, TSH, LIPID, CMP #### [facility] [address] [place] [address] Dr. Sona Cruz SED RATE WESTERGREN 2022 SED RATE 47 mm/hr Critically high <=30 [facility] Comment on above: Performed By: #### T 7, TSH, LIPID, CMP #### [facility] [address] [place] [address] Dr. Sona Cruz TSHon 08-12-2022 TSH 2.474 uIU/mL Normal 0.358-3.740 [facility] Comment on above: Performed By: #### T 7, TSH, LIPID, CMP #### [facility] [address] [place] [address] Dr. Sona Cruz UA RANDOM W/MICROSCOPICon BACTERIA NONE SEEN Normal NONE SEEN [facility] Comment on above: Performed By: #### T 7, TSH, LIPID, CMP #### [facility] [address] [place] [address] Dr. Sona Cruz Bilirubin Ql (U) Negative Normal NEGATIVE [facility] Comment on above: Performed By: #### T 7, TSH, LIPID, CMP #### [facility] [address] [place] [address] Dr. Sona Cruz CAST NONE SEEN Normal NONE SEEN [facility] Comment on above: Performed By: #### T 7, TSH, LIPID, CMP #### [facility] [address] [place] [address] Dr. Sona Cruz Clarity (U) CLEAR Normal CLEAR [facility] Comment on above: Performed By: #### T 7, TSH, LIPID, CMP #### [facility] [address] [address] [address] Sona rCuz Color (U) YELLOW Normal YELLOW [facility] Comment on above: Performed By: #### T 7, TSH, LIPID, CMP #### [facility] [address] [address] [address] Sona Cruz Crystals LM Nom (Urine sed) NONE SEEN Normal NONE SEEN [facility] Comment on above: Performed By: #### T 7, TSH, LIPID, CMP #### [facility] [address] [address] [address] Sona Cruz Epithelial cells LM Ql (Urine sed) NONE SEEN Normal NONE SEEN /RARE [facility] Comment on above: Performed By: #### T 7, TSH, LIPID, CMP #### [facility] [address] [place] [address] Dr. Sona Cruz Glucose Ql (U) Negative Normal NEGATIVE [facility] Comment on above: Performed By: #### T 7, TSH, LIPID, CMP #### [facility] [address] [place] [address] Dr. Sona Cruz Hemoglobin Ql (U) Negative Normal NEGATIVE [facility] Comment on above: Performed By: #### T 7, TSH, LIPID, CMP #### [facility] [address] [place] [address] Dr. Sona Cruz Ketones Ql (U) Negative Normal NEGATIVE [facility] Comment on above: Performed By: #### T 7, TSH, LIPID, CMP #### [facility] [address] [place] [address] Dr. Sona Cruz LEUKOCYTES Negative Normal NEGATIVE [facility] Comment on above: Performed By: #### T 7, TSH, LIPID, CMP #### [facility] [address] [place] [address] Dr. Sona Cruz MUCOUS NONE SEEN Normal NONE SEEN [facility] Comment on above: Performed By: #### T 7, TSH, LIPID, CMP #### [facility] [address] [place] [address] Dr. Sona Cruz Nitrite Ql (U) Negative Normal NEGATIVE [facility] Comment on above: Performed By: #### T 7, TSH, LIPID, CMP #### [facility] [address] [place] [address] Dr. Sona Cruz pH (U) 6.0 [pH] Normal 5-9 [facility] Comment on above: Performed By: #### T 7, TSH, LIPID, CMP #### [facility] [address] [place] [address] Dr. Sona Cruz RBC 0-2 Normal 0-2 [facility] Comment on above: Performed By: #### T 7, TSH, LIPID, CMP #### [facility] [address] [address] [address] Sona Cruz SPEC GRAVITY 1.010 Normal 1.005-<=1.025 [facility] Comment on above: Performed By: #### T 7, TSH, LIPID, CMP #### [facility] [address] [place] [address] Dr. Sona Cruz UA PROTEIN Negative Normal NEGATIVE/ TRACE [facility] Comment on above: Performed By: #### T 7, TSH, LIPID, CMP #### [facility] [address] [place] [address] Dr. Sona Cruz Urobilinogen Qn (U) 0.2 {Dayanna'U}/dL Normal 0.2 - 1. 0 [facility] Comment on above: Performed By: #### T 7, TSH, LIPID, CMP #### [facility] [address] [place] [address] Dr. Sona Cruz WBC NONE SEEN Normal NONE SEEN [facility] Comment on above: Performed By: #### T 7, TSH, LIPID, CMP #### [facility] [address] [place] [address] Dr. Sona Cruz VITAMIN B12on 08-12-2022 Cobalamin (Vitamin B12) [Mass/Vol] 542.0 pg/mL Normal 193.0-986.0 [facility] Comment on above: Performed By: #### T 7, TSH, LIPID, CMP #### [facility] [address] [place] [address] Dr. Sona Cruz VITAMIN D 25 OHon 08-12-2022 VIT D 25-OH 23.3 ng/mL Normal [facility] Comment on above: Performed By: #### T 7, TSH, LIPID, CMP #### [facility] [address], [place] [address] Dr. Sona Cruz VIT D RANGES SEE BELOW Normal [facility] Comment on above: Result Comment: <20 ng/mL Vit D deficient 20 - <30 ng/mL Vit D insufficient 30 - 100 ng/mL Vit D sufficient >100 ng/mL Potential Toxicity Performed By: #### T 7, TSH, LIPID, CMP #### [facility] [address], [place] [address] Dr. Sona Cruz Ambulatory Visit Summaryon 0 07-13-2022 Ambulatory Visit Summary SYLVIE ALTAMIRANO :1970 Visit Date:07/08/2022 Ambulatory Visit Instructions Your Diagnosis Benign neoplasm of sigmoid colon Your Care Team Attending Physician - QI ARGUETA, Vinod Odonnell Primary Care Physician - Eleuterio Carranza MD This Is Your Medications List Contact prescribing physician if questions or concerns buPROPion (Wellbutrin XL 150 mg/24 hours Tab-ER) diclofenac (diclofenac sodium 75 mg Oral EC Tab) formoterol-mometason e (Dulera 100 mcg-5 mcg/inh inhalation aerosol) hyoscyamine (Levsin 0.125 mg SL Tab) multivitamin with minerals (Multivitamins and Minerals) pantoprazole (Pantoprazole [address] Tab) Procedures Performed Colonoscopy (06/22/2022), Colonoscopy (08/10/2011), Appendectomy, Cholecystectomy, Colonoscopy, Colonoscopy, Dilation and curettage, Exploratory laparotomy, Exploratory laparotomy, Vaginal total hysterectomy. Medications What How Much When Instructions Unchanged buPROPion (Wellbutrin XL 150 mg/ 24 hours Tab-ER) 1 Tablets By Mouth Every day Contact prescribing physician if questions or concerns Unchanged diclofenac (diclofenac sodium 75 mg Oral EC Tab) 1 Tablets By Mouth 2 times a day Contact prescribing physician if questions or concerns Unchanged formoterol-mometason e (Dulera 100 mcg-5 mcg/ inh inhalation aerosol) 2 Puffs Inhalation 2 times a day Contact prescribing physician if questions or concerns Unchanged hyoscyamine (Levsin 0.125 mg SL Tab) 1-2 tabs Sublingual 4 times a day as needed for abdominal cramping Contact prescribing physician if questions or concerns Unchanged multivitamin with minerals (Multivitamins and Minerals) Contact prescribing physician if questions or concerns Unchanged pantoprazole (Pantoprazole [address] Tab) 1 Tablets By Mouth Every day Contact prescribing physician if questions or concerns Allergies Effexor (Dizziness) Problems Ongoing - Any problem that you are currently receiving treatment for. BMI 45.0-49.9, adult Dyshidrotic eczema Family history of colon cancer Hemorrhoids History of anxiety History of depression History of Helicobacter pylori infection IBS (irritable bowel syndrome) Meniere's disease Personal history of colonic polyps PTSD (post-traumatic stress disorder) Sleep apnea Tubular adenoma of colon Normal [facility] General Surgery Office/Clini c Noteon 07-08-2022 General Surgery Office/Clinic Note Chief Complaint colonoscopy follow up HPI Staff 16 day post operative follow up post colonoscopy with sigmoid polypectomy. History of Present Illness s/p colonoscopy with sigmoid polypectomy duet to personal h/o colon polyps and fmhx of colon cancer; patient reports some mild right abd discomfort for several days after procedure, no blood in stools; pathology with tubular adenoma. Review of Systems ROS - Provider Constitutional: no fever, no sweats, no weight loss. Eyes: no glasses, no blurred vision, no visual loss. ENMT: no dentures, no hoarseness, no swallowing difficulties, no hearing loss, no ear infection(s), no nose bleeds. Cardiovascular: normal blood pressure, no chest pain, regular heartbeat, no heart murmur. Respiratory: no shortness of breath, no cough, no asthma, no wheezing. Gastrointestinal: no nausea, no vomiting, no diarrhea, no constipation, no blood in stool, no change in bowel habits, no abdominal pain, no hepatitis. Genitourinary: no kidney stones, no urine infection, no dysuria. Musculoskeletal: no pain, no weakness. Skin: no changing moles, no rash, no skin lumps. Neurologic: no seizures, no epilepsy, no headache. Psychiatric: no emotional or psychiatric problem. Heme/Lymph: no bleeding problems, no anemia, no blood clots, no transfusions. Allergy/Immunologic: no swollen lymph nodes/glands, no IV drug abuse. Other: Additional ROS info: Except as noted in the above Review of Systems and in the History of Present Illness, all other systems have been reviewed and are negative or noncontributory. Assessment/Plan 1. Benign neoplasm of sigmoid colon (D12.5: Benign neoplasm of sigmoid colon) plan surveillance colonoscopy in 5 years, call sooner if problems/questions. Follow-up No qualifying data available Problem List/Past Medical History Ongoing BMI 45.0-49.9, adult Dyshidrotic eczema Family history of colon cancer Hemorrhoids History of anxiety History of depression History of Helicobacter pylori infection IBS (irritable bowel syndrome) Meniere's disease Personal history of colonic polyps PTSD (post-traumatic stress disorder) Sleep apnea Tubular adenoma of colon Historical No qualifying data Procedure/Surgical History Colonoscopy (06/22/2022), Colonoscopy (08/10/2011), Appendectomy, Cholecystectomy, Colonoscopy, Colonoscopy, Dilation and curettage, Exploratory laparotomy, Exploratory laparotomy, Vaginal total hysterectomy. Medications diclofenac sodium 75 mg Oral EC Tab, 75 mg= 1 tab(s), Oral, BID Dulera 100 mcg-5 mcg/inh inhalation aerosol, 2 puff(s), Inhalation, BID Levsin 0.125 mg SL Tab, 1-2 tabs, SubLingual, QID, PRN Multivitamins and Minerals Pantoprazole [address] Tab, 40 mg= 1 tab(s), Oral, Daily Wellbutrin XL 150 mg/24 hours Tab-ER, 150 mg= 1 tab(s), Oral, Daily Allergies Effexor (Dizziness) Social History Alcohol - Denies Alcohol Use, 05/17/2022 Substance Abuse - Denies Substance Abuse, 05/17/2022 Tobacco 10 or more cigarettes (1/2 pack or more)/day in last 30 days Tobacco Use:. Never Smokeless Tobacco Use:. Cigarettes, 0.5 per day. Started age 23.0 Years[age] 05/17/2022 Family History Primary malignant neoplasm of colon: Sister. Immunizations Vaccine Date Status Comments influenza virus vaccine, inactivated - Not Given Patient Refuses Normal [facility] Comment on above: Result Comment: Elec tronically Signed By: QI ARGUETA, Vinod Neri\Date and Time Signed: 07/08/22 14:16 EST Reminderson 07-08-2022 Reminders - From: Gracia Rodas LPN To: N - Clinical; Sent: 07/08/2022 14:13:55 EST Show up: 05/22/2027 07:00:00 EST Subject: colonoscopy recall Due Date/Time: 06/22/2027 07:00:00 EST Reminder/Recall Patient is due for colonoscopy 06/22/2027 due to history of tubular adenoma. Normal [facility] Pathology Noteon 06-24-2022 Pathology Note [id number] #1.00CD:127 Normal [facility] Outside Colonoscopyon 2022 Outside Colonoscopy [id number] #1.00CD:127 Normal [facility] Lab Reportson 06-20-2022 Lab Reports [id number] #1.00CD:127 Normal [facility] ANTISTREPTOLYSIN O AB (ASO)o n 06-18-2022 Antistreptolysin O Ab 561.7 IU/mL Critically high 0.0-200. 0 [facility] Comment on above: Performed By: #### T 7, TSH, LIPID, CMP #### [facility] [address] [place] [address] Dr. Sona Cruz INSULINon 06-18-2022 Insulin 11.2 uIU/mL Normal 2.6-24.9 [facility] Comment on above: Performed By: #### T 7, TSH, LIPID, CMP #### [facility] [address] [place] [address] Dr. Sona Cruz CBC AUTO DIFFon 06-17-2022 BASO # 0.1 103/ul Normal 0.0-0.1 [facility] Comment on above: Performed By: #### T 7, TSH, LIPID, CMP #### [facility] [address] [place] [address] Dr. Sona Cruz Basophils/100 WBC (Bld) 0.6 % Normal 0.2-2.0 [facility] Comment on above: Performed By: #### T 7, TSH, LIPID, CMP #### [facility] [address] [place] [address] Dr. Sona Cruz EO # 0.2 103/ul Normal 0.0-0.7 [facility] Comment on above: Performed By: #### T 7, TSH, LIPID, CMP #### [facility] [address] [place] [address] Dr. Sona Cruz Eosinophils/100 WBC (Bld) 1.8 % Normal 0.9-7.0 [facility] Comment on above: Performed By: #### T 7, TSH, LIPID, CMP #### [facility] [address] [place] [address] Dr. Sona Cruz Erythrocyte distribution width (RBC) [Ratio] 15.3 % Critically high 11.0-15.0 [facility] Comment on above: Performed By: #### T 7, TSH, LIPID, CMP #### [facility] [address] [place] [address] Dr. Sona Cruz Hematocrit (Bld) [Volume fraction] 39.1 % Normal 36.0-48.0 [facility] Comment on above: Performed By: #### T 7, TSH, LIPID, CMP #### [facility] [address] [place] [address] Dr. Sona Cruz Hemoglobin (Bld) [Mass/Vol] 12.7 g/dL Normal 12.0-16.0 [facility] Comment on above: Performed By: #### T 7, TSH, LIPID, CMP #### [facility] [address] [place] [address] Dr. Sona Cruz IG # 0.15 10e3/ul Critically high 0.00-0.03 [facility] Comment on above: Performed By: #### T 7, TSH, LIPID, CMP #### [facility] [address] [place] [address] Dr. Sona Cruz IG % 1.3 % Critically high 0.0-0.5 [facility] Comment on above: Performed By: #### T 7, TSH, LIPID, CMP #### [facility] [address] [place] [address] Dr. Sona Cruz LYMPH # 2.0 103/ul Normal 1.2-3.8 [facility] Comment on above: Performed By: #### T 7, TSH, LIPID, CMP #### [facility] [address] [place] [address] Dr. Sona Cruz Lymphocytes/100 WBC (Bld) 16.3 % Critically low 20.5-60.0 [facility] Comment on above: Performed By: #### T 7, TSH, LIPID, CMP #### [facility] [address] [place] [address] Dr. Sona Cruz MANUAL DIFF REQ NO Normal [facility] Comment on above: Performed By: #### T 7, TSH, LIPID, CMP #### [facility] [address] [place] [address] Dr. Sona Cruz MCH (RBC) [Entitic mass] 28.7 pg Normal 26.7-34.0 [facility] Comment on above: Performed By: #### T 7, TSH, LIPID, CMP #### [facility] [address] [place] [address] Dr. Sona Cruz MCHC (RBC) [Mass/Vol] 32.5 g/dL Normal 29.9-35.2 [facility] Comment on above: Performed By: #### T 7, TSH, LIPID, CMP #### [facility] [address] [place] [address] Dr. Sona Cruz MCV (RBC) [Entitic vol] 88.3 fL Normal 81.0-99.0 [facility] Comment on above: Performed By: #### T 7, TSH, LIPID, CMP #### [facility] [address] [place] [address] Dr. Sona Cruz MONO # 0.8 103/ul Normal 0.3-0.8 [facility] Comment on above: Performed By: #### T 7, TSH, LIPID, CMP #### [facility] [address] [place] [address] Dr. Sona Cruz Monocytes/100 WBC (Bld) 6.4 % Normal 1.7-12.0 [facility] Comment on above: Performed By: #### T 7, TSH, LIPID, CMP #### [facility] [address] [place] [address] Dr. Sona Cruz NEUT # 8.8 103/ul Critically high 1.4-6.5 [facility] Comment on above: Performed By: #### T 7, TSH, LIPID, CMP #### [facility] [address] [place] [address] Dr. Sona Cruz Neutrophils/100 WBC (Bld) 73.6 % Normal 43.0-75.0 [facility] Comment on above: Performed By: #### T 7, TSH, LIPID, CMP #### [facility] [address] [place] [address] Dr. Sona Cruz Platelet mean volume (Bld) [Entitic vol] 10.3 fL Normal 9.5-13.5 [facility] Comment on above: Performed By: #### T 7, TSH, LIPID, CMP #### [facility] [address] [place] [address] Dr. Sona Cruz PLT 289 103/ul Normal 150-450 [facility] Comment on above: Performed By: #### T 7, TSH, LIPID, CMP #### [facility] [address] [place] [address] Dr. Sona Curz RBC 4.43 106/ul Normal 4.20-5.40 [facility] Comment on above: Performed By: #### T 7, TSH, LIPID, CMP #### [facility] [address] [place] [address] Dr. Sona Cruz WBC 12.0 103/ul Critically high 4.0-11.0 [facility] Comment on above: Performed By: #### T 7, TSH, LIPID, CMP #### [facility] [address] [place] [address] Dr. Sona Cruz CULTURE URINEon 06-17-2022 CULTURE URINE Culture Observations: MODERATE GROWTH OF MIXED GENITAL DESI. NO POTENTIAL PATHOGENS SEEN. Normal [facility] Comment on above: Performed By: #### U RCX #### [facility] [address] [place] [address] Dr. Sona Cruz [facility]on SARS-CoV-2 (COVID-19) RNA PAVAN+probe Ql (Unsp spec) Not detected Normal NOT DETECTED [facility] Comment on above: Result Comment: This test is not yet approved or cleared by the [place] FDA. When there are no FDA-approved or cleared tests available, and other criteria are met, FDA can make tests available under an emergency access mechanism called an Emergency Use Authorization (EUA). The EUA for this test is supported by the Utility System Repairer of Health and Human Service's (HHS's) declaration that circumstances exist to justify the emergency use of in vitro diagnostics for the detection and/or diagnosis of the virus that causes COVID-19. This EUA will remain in effect (meaning this test can be used) for the duration of the COVID-19 declaration justifying emergency of IVDs, unless it is terminated or revoked by FDA (after which the test may no longer be used). When diagnostic testing is negative, the possibility of a false negative should be considered in the context of a patient's recent exposures and the presence of clinical signs and symptoms consistent with SARS-CoV-2. Performed By: #### T 7, TSH, LIPID, CMP #### [facility] [address] [place] [address] Dr. Sona Cruz FREE THYROXINE INDEX T7on FTI 2.89 Normal 1.30-4.50 [facility] Comment on above: Performed By: #### I MADDI #### [facility] [address] [place] [address] Dr. Sona Cruz T3U 34.0 % Normal 30.0-39.0 [facility] Comment on above: Performed By: #### I MADDI #### [facility] [address] [place] [address] Dr. Sona Cruz T4 [Mass/Vol] 8.50 ug/dL Normal 4.80-13.90 [facility] Comment on above: Performed By: #### I MADDI #### [facility] [address] [place] [address] Dr. Sona Cruz GLYCOHEMOGLOBIN A1Con 2022 ADA RECOMMENDATION SEE BELOW Normal [facility] Comment on above: Result Comment: ADA RECOMMENDED LIMIT 4.0 - 6.0 ADA THERAPEUTIC TARGET < 7.0 ACTION SUGGESTED > 7.0 Performed By: #### T 7, TSH, LIPID, CMP #### [facility] [address] [address] [address] Sona Cruz Glucose [Mass/Vol] 114 mg/dL Normal [facility] Comment on above: Performed By: #### T 7, TSH, LIPID, CMP #### [facility] [address] [address] [address] Sona Cruz HbA1c (Bld) [Mass fraction] 5.6 % Normal 4.5-6.2 [facility] Comment on above: Performed By: #### T 7, TSH, LIPID, CMP #### [facility] [address] [address] [address] Sona Cruz IRONon 06-17-2022 Iron [Mass/Vol] 50.0 ug/dL Normal 50.0-170.0 [facility] Comment on above: Performed By: #### I MADDI #### [facility] [address] [place] [address] Dr. Sona Cruz LIPID PROFILEon 06-17-2022 CHOL-HDL RATIO NORM SEE BELOW Normal [facility] Comment on above: Result Comment: 3.3 - 4.4 LOW RISK 4.4 - 7.1 AVERAGE RISK 7.1 - 11.0 MODERATE RISK >11.0 HIGH RISK Performed By: #### I MADDI #### [facility] [address] [address] [address] Sona Cruz Cholesterol [Mass/Vol] 203 mg/dL Critically high <=200 [facility] Comment on above: Performed By: #### I MADDI #### [facility] [address] [place] [address] Dr. Sona Cruz Cholesterol in HDL [Mass/Vol] 74 mg/dL Critically high 40-60 [facility] Comment on above: Performed By: #### I MADDI #### [facility] [address] [address] [address] Sona Cruz Cholesterol in LDL [Mass/Vol] 112.4 mg/dL Normal [facility] Comment on above: Performed By: #### I MADDI #### [facility] [address] [address] [address] Sona Cruz Cholesterol.total/Cho lesterol in HDL [Mass ratio] 2.7 {ratio} Normal [facility] Comment on above: Performed By: #### I MADDI #### [facility] [address] [address] [address] Sona Cruz HDL NORMAL > or = 60 mg/dl - LOW CARDIOVASCULAR RISK <40 mg/dl - HIGH CARDIOVASCULAR RISK Normal [facility] Comment on above: Performed By: #### I MADDI #### [facility] [address] [address] [address] Sona Cruz LDL CALC NORMAL SEE BELOW Normal [facility] Comment on above: Result Comment: <100 mg/dl OPTIMAL 100 - 129 mg/dl NEAR OR ABOVE OPTIMAL 130 - 159 mg/dl BORDERLINE HIGH 160 - 189 mg/dl HIGH >190 mg/dl VERY HIGH Performed By: #### I MADDI #### [facility] [address] [address] [address] Sona Cruz Triglyceride [Mass/Vol] 83 mg/dL Normal <=150 [facility] Comment on above: Performed By: #### I MADDI #### [facility] [address] [address] [address] Sona Cruz VLDL CALC 16.6 mg/dL Normal [facility] Comment on above: Performed By: #### I MADDI #### [facility] [address] [address] [address] Sona Cruz PROF 14(COMP METB)on 023 Albumin [Mass/Vol] 3.5 g/dL Normal 3.4-5.0 [facility] Comment on above: Performed By: #### I MADDI #### [facility] [address] [place] [address] Dr. Sona Cruz Albumin/Globulin [Mass ratio] 0.9 {ratio} Normal [facility] Comment on above: Performed By: #### I MADDI #### [facility] [address] [address] [address] Sona Cruz ALP [Catalytic activity/Vol] 105 U/L Normal 46-116 [facility] Comment on above: Performed By: #### I MADDI #### [facility] [address] [address] [address] Sona Cruz ALT [Catalytic activity/Vol] 18 U/L Normal 14-59 [facility] Comment on above: Performed By: #### I MADDI #### [facility] [address] [address] [address] Sona Cruz Anion gap [Moles/Vol] 10.8 mmol/L Normal [facility] Comment on above: Performed By: #### I MADDI #### [facility] [address] [place] [address] Dr. Sona Cruz AST [Catalytic activity/Vol] 16 U/L Normal 15-37 [facility] Comment on above: Performed By: #### I MADDI #### [facility] [address] [place] [address] Dr. Sona Cruz Bilirubin [Mass/Vol] 0.4 mg/dL Normal 0.2-1.0 [facility] Comment on above: Performed By: #### I MADDI #### [facility] [address] [place] [address] Dr. Sona Cruz Calcium [Mass/Vol] 9.2 mg/dL Normal 8.5-10.1 [facility] Comment on above: Performed By: #### I MADDI #### [facility] [address] [place] [address] Dr. Sona Cruz Chloride [Moles/Vol] 101 mmol/L Normal 98-107 [facility] Comment on above: Performed By: #### I MADDI #### [facility] [address] [place] [address] Dr. Sona Cruz CO2 [Moles/Vol] 31.4 mmol/L Normal 21.0-32.0 [facility] Comment on above: Performed By: #### I MADDI #### [facility] [address] [address] [address] Sona Cruz Creatinine [Mass/Vol] 0.64 mg/dL Normal 0.55-1.02 [facility] Comment on above: Performed By: #### I MADDI #### [facility] [address] [address] [address] Sona Cruz EGFR-AF GREEK >60 Normal >=60 [facility] Comment on above: Performed By: #### I MADDI #### [facility] [address] [address] [address] Sona Cruz EGFR-NON AF GREEK >60 Normal >=60 [facility] Comment on above: Performed By: #### I MADDI #### [facility] [address] [place] [address] Dr. Sona Cruz Globulin (S) [Mass/Vol] 3.9 g/dL Normal [facility] Comment on above: Performed By: #### I MADDI #### [facility] [address] [place] [address] Dr. Sona Cruz Glucose [Mass/Vol] 97 mg/dL Normal 74-106 [facility] Comment on above: Performed By: #### I MADDI #### [facility] [address] [place] [address] Dr. Sona Cruz Potassium [Moles/Vol] 4.2 mmol/L Normal 3.5-5.1 [facility] Comment on above: Performed By: #### I MADDI #### [facility] [address] [place] [address] Dr. Sona Cruz Protein [Mass/Vol] 7.4 g/dL Normal 6.4-8.2 [facility] Comment on above: Performed By: #### I MADDI #### [facility] [address] [place] [address] Dr. Sona Cruz Sodium [Moles/Vol] 139 mmol/L Normal 136-145 [facility] Comment on above: Performed By: #### I MADDI #### [facility] [address] [place] [address] Dr. Sona Cruz Urea nitrogen [Mass/Vol] 21.0 mg/dL Critically high 7.0-18.0 [facility] Comment on above: Performed By: #### I MADDI #### [facility] [address] [place] [address] Dr. Sona Cruz Urea nitrogen/Creatinine [Mass ratio] 32.8 mg/mg Normal [facility] Comment on above: Performed By: #### I MADDI #### [facility] [address] [place] [address] Dr. Sona Cruz TSHon 06-17-2022 TSH 2.478 uIU/mL Normal 0.358-3.740 [facility] Comment on above: Performed By: #### I MADDI #### [facility] [address] [place] [address] Dr. Sona Cruz UA RANDOM W/MICROSCOPICon BACTERIA NONE SEEN Normal NONE SEEN [facility] Comment on above: Performed By: #### T 7, TSH, LIPID, CMP #### [facility] [address] [place] [address] Dr. Sona Cruz Bilirubin Ql (U) Negative Normal NEGATIVE [facility] Comment on above: Performed By: #### T 7, TSH, LIPID, CMP #### [facility] [address] [place] [address] Dr. Sona Cruz CAST NONE SEEN Normal NONE SEEN [facility] Comment on above: Performed By: #### T 7, TSH, LIPID, CMP #### [facility] [address] [place] [address] Dr. Sona Cruz Clarity (U) CLEAR Normal CLEAR [facility] Comment on above: Performed By: #### T 7, TSH, LIPID, CMP #### [facility] [address] [place] [address] Dr. Sona Cruz Color (U) LT. YELLOW Normal YELLOW [facility] Comment on above: Performed By: #### T 7, TSH, LIPID, CMP #### [facility] [address] [place] [address] Dr. Sona Cruz Crystals LM Nom (Urine sed) NONE SEEN Normal NONE SEEN [facility] Comment on above: Performed By: #### T 7, TSH, LIPID, CMP #### [facility] [address] [address] [address] Sona Cruz Epithelial cells LM Ql (Urine sed) FEW Abnormal NONE SEEN /RARE [facility] Comment on above: Performed By: #### T 7, TSH, LIPID, CMP #### [facility] [address] [address] [address] Sona Cruz Glucose Ql (U) Negative Normal NEGATIVE [facility] Comment on above: Performed By: #### T 7, TSH, LIPID, CMP #### [facility] [address] [address] [address] Sona Cruz Hemoglobin Ql (U) Negative Normal NEGATIVE [facility] Comment on above: Performed By: #### T 7, TSH, LIPID, CMP #### [facility] [address] [place] [address] Dr. Sona Cruz Ketones Ql (U) Negative Normal NEGATIVE [facility] Comment on above: Performed By: #### T 7, TSH, LIPID, CMP #### [facility] [address] [address] [address] Sona Cruz LEUKOCYTES Negative Normal NEGATIVE [facility] Comment on above: Performed By: #### T 7, TSH, LIPID, CMP #### [facility] [address] [address] [address] Sona Cruz MUCOUS NONE SEEN Normal NONE SEEN [facility] Comment on above: Performed By: #### T 7, TSH, LIPID, CMP #### [facility] [address] [address] [address] Sona Cruz Nitrite Ql (U) Negative Normal NEGATIVE [facility] Comment on above: Performed By: #### T 7, TSH, LIPID, CMP #### [facility] [address] [place] [address] Dr. Sona Cruz pH (U) 6.0 [pH] Normal 5-9 [facility] Comment on above: Performed By: #### T 7, TSH, LIPID, CMP #### [facility] [address] [address] [address] Sona Cruz RBC 0-2 Normal 0-2 [facility] Comment on above: Performed By: #### T 7, TSH, LIPID, CMP #### [facility] [address] [place] [address] Dr. Sona Cruz SPEC GRAVITY 1.020 Normal 1.005-<=1.025 [facility] Comment on above: Performed By: #### T 7, TSH, LIPID, CMP #### [facility] [address] [place] [address] Dr. Sona Cruz UA PROTEIN Negative Normal NEGATIVE/ TRACE [facility] Comment on above: Performed By: #### T 7, TSH, LIPID, CMP #### [facility] [address] [place] [address] Dr. Sona Cruz Urobilinogen Qn (U) 0.2 {Dayanna'U}/dL Normal 0.2 - 1. 0 [facility] Comment on above: Performed By: #### T 7, TSH, LIPID, CMP #### [facility] [address] [place] [address] Dr. Sona Cruz WBC 0-2 Abnormal NONE SEEN [facility] Comment on above: Performed By: #### T 7, TSH, LIPID, CMP #### [facility] [address] [place] [address] Dr. Sona Cruz Pre-Certification Formon Pre-Certification Form [id number] 2#1.00CD:127 Normal [facility] Consent for Procedure/Surger yon 05-19-2022 Consent for Procedure/Surgery [id number] #1.00CD:127 Normal [facility] ANTISTREPTOLYSIN O AB (ASO)o n 05-18-2022 Antistreptolysin O Ab 866.8 IU/mL Critically high 0.0-200. 0 [facility] Comment on above: Result Comment: Resu lts confirmed on dilution. Performed By: #### T 7, TSH, LIPID, CMP #### [facility] [address] [place] [address] Dr. Sona Cruz CBC AUTO DIFFon 05-17-2022 BASO # 0.1 103/ul Normal 0.0-0.1 [facility] Comment on above: Performed By: #### T 7, TSH, LIPID, CMP #### [facility] [address] [place] [address] Dr. Sona Cruz Basophils/100 WBC (Bld) 0.6 % Normal 0.2-2.0 [facility] Comment on above: Performed By: #### T 7, TSH, LIPID, CMP #### [facility] [address] [place] [address] Dr. Sona Cruz EO # 0.2 103/ul Normal 0.0-0.7 [facility] Comment on above: Performed By: #### T 7, TSH, LIPID, CMP #### [facility] [address] [place] [address] Dr. Sona Cruz Eosinophils/100 WBC (Bld) 1.8 % Normal 0.9-7.0 [facility] Comment on above: Performed By: #### T 7, TSH, LIPID, CMP #### [facility] [address] [place] [address] Dr. Sona Cruz Erythrocyte distribution width (RBC) [Ratio] 14.2 % Normal 11.0-15.0 [facility] Comment on above: Performed By: #### T 7, TSH, LIPID, CMP #### [facility] [address] [place] [address] Dr. Sona Cruz Hematocrit (Bld) [Volume fraction] 44.7 % Normal 36.0-48.0 [facility] Comment on above: Performed By: #### T 7, TSH, LIPID, CMP #### [facility] [address] [place] [address] Dr. Sona Cruz Hemoglobin (Bld) [Mass/Vol] 14.4 g/dL Normal 12.0-16.0 [facility] Comment on above: Performed By: #### T 7, TSH, LIPID, CMP #### [facility] [address] [place] [address] Dr. Sona Cruz IG # 0.09 10e3/ul Critically high 0.00-0.03 [facility] Comment on above: Performed By: #### T 7, TSH, LIPID, CMP #### [facility] [address] [place] [address] Dr. Sona Cruz IG % 0.7 % Critically high 0.0-0.5 [facility] Comment on above: Performed By: #### T 7, TSH, LIPID, CMP #### [facility] [address] [place] [address] Dr. Sona Cruz LYMPH # 2.2 103/ul Normal 1.2-3.8 [facility] Comment on above: Performed By: #### T 7, TSH, LIPID, CMP #### [facility] [address] [place] [address] Dr. Sona Cruz Lymphocytes/100 WBC (Bld) 17.2 % Critically low 20.5-60.0 [facility] Comment on above: Performed By: #### T 7, TSH, LIPID, CMP #### [facility] [address] [place] [address] Dr. Sona Cruz MANUAL DIFF REQ NO Normal [facility] Comment on above: Performed By: #### T 7, TSH, LIPID, CMP #### [facility] [address] [place] [address] Dr. Sona Cruz MCH (RBC) [Entitic mass] 28.7 pg Normal 26.7-34.0 [facility] Comment on above: Performed By: #### T 7, TSH, LIPID, CMP #### [facility] [address] [place] [address] Dr. Sona Cruz MCHC (RBC) [Mass/Vol] 32.2 g/dL Normal 29.9-35.2 [facility] Comment on above: Performed By: #### T 7, TSH, LIPID, CMP #### [facility] [address] [place] [address] Dr. Sona Cruz MCV (RBC) [Entitic vol] 89.0 fL Normal 81.0-99.0 [facility] Comment on above: Performed By: #### T 7, TSH, LIPID, CMP #### [facility] [address] [address] [address] Sona Cruz MONO # 0.9 103/ul Critically high 0.3-0.8 [facility] Comment on above: Performed By: #### T 7, TSH, LIPID, CMP #### [facility] [address] [place] [address] Dr. Sona Cruz Monocytes/100 WBC (Bld) 6.5 % Normal 1.7-12.0 [facility] Comment on above: Performed By: #### T 7, TSH, LIPID, CMP #### [facility] [address] [place] [address] Dr. Sona Cruz NEUT # 9.5 103/ul Critically high 1.4-6.5 [facility] Comment on above: Performed By: #### T 7, TSH, LIPID, CMP #### [facility] [address] [place] [address] Dr. Sona Cruz Neutrophils/100 WBC (Bld) 73.2 % Normal 43.0-75.0 [facility] Comment on above: Performed By: #### T 7, TSH, LIPID, CMP #### [facility] [address] [place] [address] Dr. Sona Cruz Platelet mean volume (Bld) [Entitic vol] 10.5 fL Normal 9.5-13.5 [facility] Comment on above: Performed By: #### T 7, TSH, LIPID, CMP #### [facility] [address] [place] [address] Dr. Sona Cruz PLT 319 103/ul Normal 150-450 [facility] Comment on above: Performed By: #### T 7, TSH, LIPID, CMP #### [facility] [address] [place] [address] Dr. Sona Cruz RBC 5.02 106/ul Normal 4.20-5.40 [facility] Comment on above: Performed By: #### T 7, TSH, LIPID, CMP #### [facility] [address] [place], [place] [id number] Dr. Sona Cruz WBC 13.0 103/ul Critically high 4.0-11.0 [facility] Comment on above: Performed By: #### T 7, TSH, LIPID, CMP #### [facility] [address] [place] [address] Dr. Sona Cruz CRPon 05-17-2022 CRP [Mass/Vol] mg/L Normal <=1.0 [facility] Comment on above: Performed By: #### T 7, TSH, LIPID, CMP #### [facility] [address] [place] [address] Dr. Sona Cruz CULTURE BLOODon 05-17-2022 Microscopic examination of blood, culture Culture Observations: NO GROWTH AT 5 DAYS. Normal [facility] Comment on above: Performed By: #### B LDCX2 #### [facility] [address] [place] [address] Dr. Sona Cruz Microscopic examination of blood, culture Culture Observations: NO GROWTH AT 5 DAYS. Normal [facility] Comment on above: Performed By: #### B LDCX1 #### [facility] [address] [place] [address] Dr. Sona Cruz [facility] 54 mm/hr Critically high <=30 [facility] Comment on above: Performed By: #### T 7, TSH, LIPID, CMP #### [facility] [address] [place] [address] Dr. Sona Cruz MRI LSPINE WO CONon 05-06-20 MRI LSPINE WO CON EXAMINATION: MRI LSPINE WO CON HISTORY: Lumbar radiculopathy ; chronic lumbar pain which now extends into thighs COMPARISON: XR L-spine 03/29/2022 TECHNIQUE: A variety of imaging planes and parameters were utilized for visualization of suspected pathology. FINDINGS: For the purposes of numbering, sagittal T2 image # 8 extends from the T11 vertebral body superiorly to the S3-S4 level inferiorly. PARASPINAL AREA: Normal with no visible mass. BONES: Prominent incidental hemangioma within T12 and L5. No fracture, spondylolisthesis, or suspicious bone lesion. CORD/CAUDA EQUINA: Normal caliber, contour, and signal intensity. DISC LEVELS: 12-L1: No significant disc/facet abnormality, spinal stenosis, or foraminal stenosis. L1-L2: Mild central canal and bilateral foramen narrowing. Mild diffuse disc bulging and mild disc at reduction. No significant degenerative facet arthropathy. L2-L3: Mild central canal and bilateral foramen narrowing. Mild diffuse disc bulging without disc height reduction. Mild/moderate degenerative facet arthropathy, right greater than left. L3-L4: Mild central canal and bilateral foramen narrowing. Mild diffuse disc bulging without disc at reduction. Mild degenerative facet arthropathy. L4-L5: Moderate foramen narrowing bilaterally without significant central canal narrowing. Mild diffuse disc bulging without disc at reduction. Moderate degenerative facet arthropathy bilaterally. L5-S1: No significant central canal or foraminal narrowing. Unremarkable disc. Mild degenerative facet arthropathy. IMPRESSION: 1. L4-L5 moderate foramen narrowing bilaterally secondary to mild degenerative disc disease and moderate or greater degenerative facet arthropathy. 2. Multilevel mild degenerative changes. Electronically authenticated by: YUNIOR ROBBINS Date: 2022-05-06 15:01 Normal [facility] MG MAMM SCREEN 3D CESAR CADon 04-15-2022 MG MAMM SCREEN 3D CESAR CAD Patient: SYLVIE ALTAMIRANO Exam Date: 04/15/2022 : 1970 Gender:F Ordering : DR ELEUTERIO CARRANZA . Admission #: [id number] Family : Order #: [id number] CLICK HERE TO VIEW EXAM RADIOLOGY REPORT PROCEDURE: MAMMOGRAM SCREENING 3D BILATERAL CAD COMPARISON: None. INDICATIONS: Screening mammography Calculator Name NCI Breast Cancer Risk Assessment Tool 5 Year Breast Cancer Risk 0.80% Lifetime Breast Cancer Risk 7.10% Personal Breast Cancer No Personal Ovarian Cancer No Treatments None Family Cancers Sister with colon cancer at age 34. LOCATION: [facility] BREAST COMPOSITION: Almost entirely fatty. FINDINGS: DIAGNOSTIC CATEGORY 1--NEGATIVE. NO CHANGE FROM COMPARISON ASSESSMENT. Scattered benign-appearing calcifications are present. Scattered benign-appearing lymph nodes are present. RIGHT BREAST: No significant suspicious finding. LEFT BREAST: No significant suspicious finding. RECOMMENDATIONS: ROUTINE MAMMOGRAM AND CLINICAL EVALUATION IN 12 MONTHS. PLEASE NOTE: A NORMAL MAMMOGRAM DOES NOT EXCLUDE THE POSSIBILITY OF BREAST CANCER. A CLINICALLY SUSPICIOUS PALPABLE LUMP SHOULD BE BIOPSIED. Dictated by: Moise Hickey MD on 04/15/2022 at 14:16 Approved by: Moise Hickey MD on 04/15/2022 at 14:17 Normal [facility] ECHOCARDIO M/2D COMPLETEon 1 ECHOCARDIO M/2D COMPLETE Patient: SYLVIE ALTAMIRANO Exam Date: 04/08/2022 : 1970 Gender:F Ordering : DR ELEUTERIO CARRANZA . Admission #: [id number] Family : Order #: [id number] CLICK HERE TO VIEW EXAM ECHOCARDIOGRAM REPORT PROCEDURE: CARDIO PULMONARY ECHOCARDIO M/2D COMP INDICATIONS: Elevated ASO, hypertension COMPARISON: None. DESCRIPTION: COMPLETE ECHOCARDIOGRAM Real-time transthoracic echocardiography with 2D, M-mode, spectral and color flow Doppler performed. QUALITY: Technical quality was fair. 63 262# BP 158/98 LEFT VENTRICLE: Normal chamber size. Borderline left ventricular hypertrophy. Systolic function is normal. LV EF: Normal left ventricular ejection fraction, (>55%). DIASTOLIC: Normal diastolic function. ATRIAL SEPTUM: Visually appears intact. LEFT ATRIUM: Normal chamber size. RIGHT ATRIUM: Normal chamber size. RIGHT VENTRICLE: Normal chamber size. Normal right ventricular systolic function. TRICUSPID VALVE: Normal mobility and thickness. No stenosis with no regurgitation. MITRAL VALVE: Normal mobility and thickness. No evidence of mitral valve stenosis. There is no mitral annular calcification. No mitral regurgitation. AORTIC VALVE: Normal trileaflet appearance. No visible sclerosis. Normal leaflet mobility. No evidence of aortic valve stenosis. No aortic regurgitation. AORTIC ROOT: Normal diameter and appearance. PULMONIC VALVE: Not well visualized. No stenosis. No regurgitation. PERICARDIUM: No evidence of pericardial effusion. IVC: Collapses with inspirations. IVC is normal in size. PLEURA: CONCLUSION: 1. Normal ventricular function. LVEF is 60%. 2. No significant valvular dysfunction. 3. No pericardial effusion. Adult Echocardiography Procedure Report Left Ventricle LVEDD (3.7 - 5.6 cm): 4.48 cm LVESD (2.2 - 4.0 cm): 3.12 cm LVIVS thickness (0.6 - 1.2 cm): 1.13 cm LVPW thickness (0.5 - 1.0 cm): 0.95 cm e': 0.08 m/s E - e': 8.12 LVOT Max Gradient: 2.88 mm[Hg] Peak Velocity (LVOT): 0.85 m/s Mean Velocity (LVOT): 0.57 m/s LVOT Diameter 2.13 cm Left Ventricular Ejection Fraction: 60 % Left Atrium LA Volume Index (2D A2C): 80.32 ml, 80.32 ml Left Atrium Systolic Dimension: 4.22 cm Mitral Valve MV E to A Ratio: 1.02 Mitral Valve A-Wave Peak Velocity: 0.66 m/s Mitral Valve E-Wave Peak Velocity: 0.68 m/s Right Ventricle Aorta AO Root Diam: 2.74 cm Aortic Valve AoV Area (Peak Edgar): 2.78 cm2, 2.78 cm2 AoV Area (VTI): 3.05 cm2, 3.05 cm2 Peak Velocity(Antegrade Flow): 1.08 m/s Peak Gradient(Antegrade Flow): 4.70 mm[Hg] Mean Velocity(Antegrade Flow): 0.76 m/s Mean Gradient(Antegrade Flow): 2.56 mm[Hg] Velocity Time Integral: 21.72 cm Tricuspid Valve Peak Velocity: 0.55 m/s Pulmonic Valve Mean Gradient: 2.54 mm[Hg], 2.54 mm[Hg] Mean Velocity: 0.75 m/s, 0.75 m/s Peak Velocity: 1.01 m/s, 1.01 m/s, 1.06 m/s Peak Gradient: 4.52 mm[Hg], 4.12 mm[Hg], 4.12 mm[Hg] Right Atrium Right Atrium Systolic Pressure: 48.02 ml, 48.02 ml Dictated by: Quintin Lazaro M.D. on 04/13/2022 at 11:30 Approved by: Quintin Lazaro M.D. on 04/13/2022 at 11:32 Normal [facility] SLE PROFILE Aon 04-01-2022 Anti-DNA (DS) Ab Qn 1 IU/mL Normal 0-9 [facility] Comment on above: Result Comment: Nega tive <5 Equivocal 5 - 9 Positive >9 Performed By: #### T 7, TSH, LIPID, CMP #### [facility] [address] [place] [address] Dr. Sona Cruz Antichromatin Antibodies <0.2 Normal 0.0-0.9 [facility] Comment on above: Performed By: #### T 7, TSH, LIPID, CMP #### [facility] [address] [address] [address] Sona Cruz RA Latex Turbid. <10.0 Normal <14.0 [facility] Comment on above: Performed By: #### T 7, TSH, LIPID, CMP #### [facility] [address] [address] [address] Sona Cruz YOUTH ADVOCATE Antibodies 0.2 AI Normal 0.0-0.9 [facility] Comment on above: Performed By: #### T 7, TSH, LIPID, CMP #### [facility] [address] [address] [address] Sona Pierceogrольга'sana Anti-SS-A <0.2 Normal 0.0-0.9 [facility] Comment on above: Performed By: #### T 7, TSH, LIPID, CMP #### [facility] [address] [place] [address] Dr. Sona Pierceogrольга'sana Anti-SS-B <0.2 Normal 0.0-0.9 [facility] Comment on above: Performed By: #### T 7, TSH, LIPID, CMP #### [facility] [address] [address] [address] Sona Cruz Judd Antibodies <0.2 Normal 0.0-0.9 [facility] Comment on above: Performed By: #### T 7, TSH, LIPID, CMP #### [facility] [address] [place] [address] Dr. Sona Cruz REGGIE by IFAon 03-31-2022 Antinuclear Antibodies, IFA Negative Normal [facility] Comment on above: Result Comment: Nega tive <1:80 Borderline 1:80 Positive >1:80 ICAP nomenclature: AC-0 For more information about Hep-2 cell patterns use ANApatterns.org, the official website for the International Consensus on Antinuclear Antibody (REGGIE) Patterns (ICAP). Performed By: #### T 7, TSH, LIPID, CMP #### [facility] [address] [place] [address] Dr. Sona Cruz Physician Referralon 022 Physician Referral [phone] [id number] #[id number] Normal [facility] RHEUMATOID FACTORon 03-31-20 22 RA Latex Turbid. <10.0 Normal <14.0 [facility] Comment on above: Performed By: #### T 7, TSH, LIPID, CMP #### [facility] [address] [place] [address] Dr. Sona Cruz ANTISTREPTOLYSIN O AB (ASO)o n 03-30-2022 Antistreptolysin O Ab 1118.1 IU/mL Critically high 0.0-200 .0 [facility] Comment on above: Result Comment: Resu lts confirmed on dilution. Performed By: #### T 7, TSH, LIPID, CMP #### [facility] [address] [place] [address] Dr. Sona Cruz DANIELLE-GARCIA VIRUS (EBV) AB PROFILEon 03-30-2022 EBV Ab VCA, IgG 57.9 U/mL Critically high 0.0-17.9 [facility] Comment on above: Result Comment: Nega tive <18.0 Equivocal 18.0 - 21.9 Positive >21.9 Performed By: #### T 7, TSH, LIPID, CMP #### [facility] [address] [place] [address] Dr. Sona Cruz EBV Ab VCA, IgM <36.0 Normal 0.0-35.9 [facility] Comment on above: Result Comment: Nega tive <36.0 Equivocal 36.0 - 43.9 Positive >43.9 Performed By: #### T 7, TSH, LIPID, CMP #### [facility] [address] [place] [address] Dr. Sona Cruz EBV Nuclear Antigen Ab, IgG 135.0 U/mL Critically high 0.0-17.9 [facility] Comment on above: Result Comment: Nega tive <18.0 Equivocal 18.0 - 21.9 Positive >21.9 Performed By: #### T 7, TSH, LIPID, CMP #### [facility] [address], [place] [address] Dr. Sona Cruz Interpretation: Comment Normal [facility] Comment on above: Result Comment: EBV Interpretation Chart Moseley: Antibody Present + Antibody Absent - Interpretation VCA-IgM VCA-IgG EBNA-IgG . No previous infection/ - - - Susceptible Primary infection (new + + - or recent) Past Infection +or- + + See comment below* + - - *Results indicate infection with EBV at some time however cannot predict the timing of the infection since antibodies to EBNA usually develop after primary infection or, alternatively, approximately 5-10% of patients with EBV never develop antibodies to EBNA. Performed By: #### T 7, TSH, LIPID, CMP #### [facility] [address], [place] [address] Dr. Sona Cruz XR KNEE CESAR 4V or >on 2021 XR KNEE CESAR 4V or > EXAMINATION: XR KNEE CESAR 4V or > HISTORY: Joint pain ; chronic bilateral knee pain, right greater than left COMPARISON: No relevant comparison available. FINDINGS: RIGHT FINDINGS: BONES: Moderate medial joint space narrowing; mild anterior joint space narrowing. Prominent periarticular degenerative osteophytes involving all 3 compartments. SOFT TISSUES: No visible soft tissue swelling. OTHER: Negative. LEFT FINDINGS: BONES: Marked medial joint space narrowing; mild anterior joint space narrowing. Prominent periarticular degenerative osteophytes involving all 3 compartments. SOFT TISSUES: No visible soft tissue swelling. OTHER: Negative. IMPRESSION: RIGHT CONCLUSION: Moderate degenerative joint disease predominantly involving the medial compartment. LEFT CONCLUSION: Moderate marked degenerative joint disease predominantly involving medial compartment. Electronically authenticated by: YUNIOR ROBBINS Date: 2022-03-30 07:05 Normal [facility] XR LSPINE MIN 4 VIEWSon 03-12 XR LSPINE MIN 4 VIEWS EXAMINATION: XR LSPINE MIN 4 VIEWS HISTORY: Joint pain ; chronic lumbar and bilateral knee pain COMPARISON: No relevant comparison available. FINDINGS: BONES: Mild right convex curvature of lumbar spine. No fracture, spondylolisthesis, bone lesion. Moderate degenerative facet arthropathy L4-L5, L5-S1. DISC SPACES: Mild narrowing L4-L5. PARASPINOUS: Negative. No paraspinous abnormality is seen. OTHER: Negative. IMPRESSION: 1. Mild degenerative changes of lower lumbar spine. Electronically authenticated by: YUNIOR ROBBINS Date: 2022-03-30 07:13 Normal [facility] CRPon 03-29-2022 CRP 1.4 mg/dL Critically high <=1.0 [facility] Comment on above: Performed By: #### T 7, TSH, LIPID, CMP #### [facility] [address] [address] [address] Sona Cruz FREE THYROXINE INDEX T7on FTI 2.62 Normal 1.30-4.50 [facility] Comment on above: Performed By: #### T 7, TSH, LIPID, CMP #### [facility] [address] [place] [address] Dr. Sona Cruz T3U 34.0 % Normal 30.0-39.0 [facility] Comment on above: Performed By: #### T 7, TSH, LIPID, CMP #### [facility] [address] [place] [address] Dr. Sona Cruz T4 [Mass/Vol] 7.70 ug/dL Normal 4.80-13.90 [facility] Comment on above: Performed By: #### T 7, TSH, LIPID, CMP #### [facility] [address] [address] [address] Sona Cruz [facility] 48 mm/hr Critically high <=30 [facility] Comment on above: Performed By: #### T 7, TSH, LIPID, CMP #### [facility] [address] [place] [address] Dr. Sona Cruz TSHon 03-29-2022 TSH 2.577 uIU/mL Normal 0.358-3.740 [facility] Comment on above: Performed By: #### T 7, TSH, LIPID, CMP #### [facility] [address] [place] [address] Dr. Sona Cruz URIC ACID SERUMon 03-29-2022 Urate [Mass/Vol] 4.2 mg/dL Normal 2.6-6.0 [facility] Comment on above: Performed By: #### T 7, TSH, LIPID, CMP #### [facility] [address] [place] [address] Dr. Sona Cruz Coding Summary.on 02-18-2022 Coding Summary. CD:[id number] Gh0bWw+PGhlYWQ+PE1FV MRaU40xjGQyhL6FT2mJZ Q0PNJGWQNLYYS9BIJ1zr ZG4NQkgK5KechXq AzryaUTeXN34LFv3MHK6 mMbnWDmbyS7zyBLpT6n2 ZsUfTN12bN34ESvdSGKy YeF9FsCodqvzzFWm C0hbSuWjrELpMns+PHRh YmxlIHdpZHRoPScxMDAl FtCvdVwsKT2dEx4cZRFg LWNvbGxhcHNlOiBj b7ynWRHpYLotTP3soVhl E8UmbPQ8CNAli0u8Te23 dHI+BAObIEQ6jQcqPMkp e698JzVfy1dlYOO5 cEFsQQpcYSS0E00ze8X3 VBMdMOBxSQZ0yCQ2eW9e iWqzjuwcO7JthXIrHfX6 VVV3qZXafP5muEzj fveuiY1fRuj+F26BDB4K OEWQOF0FTcz7C5KfDbjw dHI+GJ72CFQdKN33mWEa cOLig2ksrZc0ShMr RUTyCDE2aGncJUzvm2Rs RXTtO61keSFml2L7WOAc pHrbeHUsErBkdAE2lF9k AQglvotzk4djdore Rlfek7ckrh74yM79I49q AMmmBIKnCIN9NMPbTNBq sPppce8duI9rCx7+IDxj k6aue4tstHs0HtGs IXBcyyYijBhdJWK9f4Gc Xm77O8LdpPrne1PrJej4 qu79eWLbt8E8kDT8QPom PKTuyY8wLJxeGbP5 PTBwKbGueB63iJZzIZjp Zr9rfSprbGbsKE6qGKZt fhkkENFxuT1hGKOgbWIe jMpkWW8aJNFwbnzm z604QvKnAER4NQYlyGAb Z4AufY9pZnMaIQIdFZGf F7QfgWPaFWycM742RMvn UsV6BELwweGnA5Pt JGMeqOtuPpE0j8F5Fb4J z5LomhphDNW8IVozCNJ2 EeD3JkLaJeT0U2AkSxm2 KEJcpFyuMX4jV4Ku HEDgwgclpxpwhVS4HUYe CZLbjV30wYSnUVqcBk1p a3Y4r661WDJdARVraN43 Hk4isZvtPIYtkQEN tK4wmfdjz7qfhbetEkFi KBTxCGw0TCd9JHTzxBxd UpDzZWG9SiK0TPJ3mPJr cU5wuBsvxmrkzA9y Oyc+Y55syE9yJFA1QTB6 sytfMNTjxdWmJT91VS05 Y5UjAsgocQGufLW+PGRp cyRxiLnvIA0aCeGl z6isc1DfDAnoJ5IgHDPr WDiqNrg7QFUtFKX5jJW0 sA8oHRBjZTfwr7J7nOY0 X4SbpcEcly1qj3kd YLQpVDhiB41uvZCnj3A0 HLBlcJM1CBPsnSeoVnWs hO42Ysd+KIZoyErit2Ih Ilylk6wgy4sdjJp6 IjMwJSIgdmFsaWduPSJ0 q4XpTn48M60rLHudKOOl KYOmTEThXREvvPsgfb8i vR1bOx2+PGNvbCB3 lTT8aU7uHUMcKqK3TGkw V383TvSpsQDkUxyzy9xv q8dhxYg2TbKzOHSijrCp oSqbGAP4a2HoSw48 X33yGOfoMSXmWXWpGMZh LRBeiJlrhy0uzY7yGd5+ XX3rn8enow25eO23lBK+ PVPlIVK4jZspIQfd KLGxpP3qGOkqCdP9SYUh CiVniD32tVJkSYbwGp6j hLevlTcsLA8hRCAsmooa n843WlMmq1qsJHNl wBLuDFqwZRD9Z69yl7H5 NXMzKDJqSDD6xFT0jP1i bGlnbjogbGVmdDsgdmVy lPtuWDgjVJlvB536 IHRvcDsnPlBhdGllbnQg GeLjMMp3U2XyWae3NOGl rFmaTI9amEPqIAvmRz6d uTjliLohHP6pQHGk btrwc901YkUvu7lcCKDm hOScZGdrEQC2V42ov7X6 TCAmQKOnBIT3aXV7sA9f bGlnbjogbGVmdDsg ckZweXwoQDnqVBluL730 IHRvcDsnPkJpcnRoIERh aSZ3QP34KU95nLMrs3S2 tPJ8Z4XqHJDcrdvp ippgdLA3QFBiAXPggX83 Oj9luHddMx9mGJYhSSV6 FHLyfUSkJ0MrmM7gEcAx LIZjSKOkR2FljUDt HMinX146SCclFgM7WCJm wwRxX8AwECIicTczXkH6 q3Z3Tx0MR2T6IH67PX48 iTTgf0H2dED7H7Rx YSJjeikvucwoqPS9ZHGj KMGuwB82Js5gzFwjWn8i QFItCGN7HKPsyGFaN0Xl hB7mPhBfIJFdPWVn O5OegYLeDLftR541BQdn PnU0ANZvmbHmM4TiPUKy cNefCsB0d4W0Gp0XPDh4 KU74KG67wOSix1V3 yGI4V3KrHJDxuwymzntj hBA5DQNbUYLlhO96Gn5r bOhaHy9sBXKySNT6TFUr mCBgD7OdrH4qIuQs WHBnYDIkE1XdyXRdVVag G409YKhnMaC1TUWfheSm C4GpVCWtlFhjPpE9i5K1 Gm9MKSZgXT48BPH9 aLB9AI87HN78L0LxNppv dGFibGU+PHRhYmxlIHdp ZHRoPScxMDAlJyBzdHls JE7oHa7yRPFqNVNg lQyfqDPnHzJop8blYHJo MXawUE4yeSrqH4NsxOI8 PAIse5t3Kl80Z73pZ5Wa dXA+VQJpzHS6vZK5 aH4lByZtOgS5NQnwN700 FnYcoTNqYqszw5hdz7jl zFz3RpR8QEKybiSveUar ARO0v5BvAb75X82k IHdpZHRoPSIxNSUiIHZh pPixge8uuQ5iTl6+PGNv hTR5hCS2cA2sTyLmQkN3 CLxnX520NiJkqWZg Phchm0vyi7tjkEh9OfCv BRPflgXsePqjUUN8w5Gv Iy95J2YsfCdhu3SnWpx3 xo81wQAbu8D6nJF5 G4EeXYXqhvfdzYWbhSzi DH2uTTPgqhnkVTGulV4v CZByC2p7RuTiSwJ5JOhk S9OiofJ9QZDxaJNp WWkjBSC2Z98lt9J9HRCt MOWqSFW4sKM5zJ2mtNbl bjogbGVmdDsgdmVydGlj JKtdGThdD646ZEYe iDneXKCnzD5sBHZawIZr uMeyPI4lXYNfuqnwUvuO IKqZNG0DNKSDJrRUKQAm TDwvdGQ+PHRkIHN0 sWyuQCllBUMbmF4bTFWx N3g8DiAuHwC7TCgxN2Lg KBAczykwUl62wS5qNeQs ObL3KVooW3VjelI8 YGFvsVMzNUwtPHH2I35c l4Z4JMJvTZAzAWY9fSF9 rZ2blDeptxykqFDprNrh dmVydGljYWwtYWxp L105HIOmhAkwKsDvPePn ZdI3CiB7H7GkMbr1QMYl zNdvHW7cgVDfBKxmJf9b uKelwHtwXC1qEBVu sfneFHAblB3tIVUejFFx gOrjOT8jZNIcfeobc631 CaCiMLV4YFJojIXtO9Sd wP3wMjAbRRVvAIUt G8UcmUEuUSqrA909RXqs LzE8ZIIntdSpT1NdJOIb qXsaDhL0d2C0Rq69FEEN ZWFyczwvdGQ+PHRk SVW3bNwlNZwlAGCgoH6z PQEmK5k7UoWkQiA2HUtz X7RrVKBuxsjgPi24jJ6j GqJyIrU9NTsiV7Yz vaN0DPGuyMUxYHzsFWU8 N05sc6O9YVEfXCJiCPI0 lKH0eX9lmAamwmzlgAIk dDsgdmVydGljYWwt TDlsK106HPTcwDxcXaMq bWFsZTwvdGQ+PHRkIHN0 fLyeBHdlFDQvnK5gUVBu I4x8HcObTtH3MNqh U8UcCNRmrhrvWk80iR6h BnHrTtF1MLncZ4DywxT7 QWYoaFKeVCtqJJU5Z62q n3Q9WEPzCQMfDEM6 gOG0fG3rpCviqpuicBQs dDsgdmVydGljYWwtYWxp I233CMKylXenBr66dWQo xFwgokR6E7CkPnsx dHI+OR36DBGfLD82hEIk vXLqd6togUf9KuIdTGDv RTR1hUstHIiej3QvLSTu S03yiHNtn8R4GAGj aRmzwJIiOqWljAH9wL4t BDlnsqkwx6nkwdaqGhut f7kvom62uH79N96nSMnk ZHRoPSIzMCUiIHZh oZxifp5cxK9jVq6+PGNv xRB8vLJ0fC5oFaRbGoX7 JXsvN461PyKpmOJuRbvp k4yxx4yccQn3PxPg WGJpetLofTjwCMI0j6Oe Ky08K52gHSyjQYJySAAw VITzMBPssKlgjs3hjX9h Ii8+YR0ur8odsc44 zA22iLS+WUXwOOS4gFhm BQciBOPbnK1zJHfdEnN8 KLLeBvEneF95kUXxAYuo Gv5nkYqslLofMH1n TZSekjycp545ErMnn6ta KTLvrEDoFSlrGXQ5E76d c1W0AZWtUURaRVN4vLG9 mH9qaIbsueymqJKu dDsgdmVydGljYWwtYWxp B527WIGlaIxyQzPpcRMb R8ycapZGBO5iZhsxbSA+ OTTqQDL4oIbcPMiv QZAunR5qIQCsB2z9BmWh HwU3FGrzQ5TvenR2WNMc aVRxYFJxoGERsI7ujrku k5mqmpxlWlXzIRRx AJh4AVp1LLRshApdPjUg EAQ3BpS4WZV5vDFgoV4p dHgqvcpeoS5wNey+RklO OjwvdGQ+PHRkIHN0 hOrnRDhrRJCtvT8pYWOh K5s1OpYzIxR8JUgdO3Zr gvI7YOGjeOCzSAKdsEHF zY9cbmqwz5egejjr TyCfIQJeDFh4LZj4PDBe iHhjBzHtGNQ0EfD1MOY0 yGIshX3tlFpemmfhbL4g Oyc+TVJOOjwvdGQ+ CIEcIYN6fBnoJJpmAUQa fE7jAXUuP6k2JxEaKrJ8 CYsbL2MariJ7BVDsdMKd DSNhlBOTjP7uhxsb u6ktbcmxZnCoXWSwCNw3 EUr7XYYsgOksJnHsWZK2 WsE7CDH2vCSmjU8dhPze nmfhdU3oMvk+UGF5 GVZ3LP29HA48I6RjDmyi dGFibGU+PHRhYmxlIHdp ZHRoPScxMDAlJyBzdHls MK6tMo8dDPTbNROj bGxh (more content not included)... Normal [facility] Insulin Lvlon 02-18-2022 Insulin Qn 10.2 u[IU]/mL Invalid Interpretation Code 2.6-24.9 [facility] Comment on above: Result Comment: Perf ormed at: [facility] [address] [id number] PhD Bonilla Maloney Performed By: #### 7 [id number], [id number], 0429973, 4471239, 5523390, 3809786, 8295844, 3764580, 86191245, 3722083, 38116821, [id number] ####[facility] [address] [place] [address] Auto Diffon 02-17-2022 Basophils/100 WBC (Bld) 0.4 % Normal 0.0-2.0 [facility] Comment on above: Order Comment: Order Added by Discern Expert. Performed By: #### 7 [id number], [id number], 7379887, 0658069, 5556739, 7421842, 4474604, 9051085, 54800999, 9469870, 85203420, [id number] ####[facility] [address] [place] [address] Basophils/Leukocytes Auto (Bld) [Pure # fraction] 0.0 E9/L Normal 0.0-0.2 [facility] Comment on above: Order Comment: Order Added by Discern Expert. Performed By: #### 7 [id number], [id number], 1055986, 7447939, 8670641, 0472184, 6342805, 4773175, 13894252, 7466545, 55434205, [id number] ####[facility] [address] [place] [address] Eosinophils/100 WBC (Bld) 2.8 % Normal 0.0-8.0 [facility] Comment on above: Order Comment: Order Added by Discern Expert. Performed By: #### 7 [id number], [id number], 5313689, 3318196, 4751392, 8684788, 0053873, 2274897, 18089461, 8455790, 89530108, 763404698 ####[facility] [address] [place] [address] Eosinophils/Leukocyte s Auto (Bld) [Pure # fraction] 0.2 E9/L Normal 0.0-0.5 [facility] Comment on above: Order Comment: Order Added by Discern Expert. Performed By: #### 7 [id number], 82368491, 0761874, 2296960, 9129483, 2846530, 6525716, 3100339, 87974591, 4605120, 54378374, 359421651 ####[facility] [address] [place] [address] Lymphocytes/100 WBC (Bld) 19.0 % Normal 14.0-50.0 [facility] Comment on above: Order Comment: Order Added by Discern Expert. Performed By: #### 7 [id number], 53068860, 8904440, 8555499, 7905506, 6581831, 7607945, 1836141, 45853011, 0850529, 81202150, 370971068 ####[facility] [address] [place] [address] Lymphocytes/Leukocyte s Auto (Bld) [Pure # fraction] 1.5 E9/L Normal 1.0-4.0 [facility] Comment on above: Order Comment: Order Added by Discern Expert. Performed By: #### 7 [id number], 19593131, 9707956, 5881130, 5306568, 7732557, 8937636, 0105940, 47765461, 2411521, 82753095, 481747024 ####[facility] [address] [place] [address] Monocytes/100 WBC (Bld) 7.3 % Normal 4.0-14.0 [facility] Comment on above: Order Comment: Order Added by Discern Expert. Performed By: #### 7 [id number], 22219942, 1463639, 6633835, 2440388, 2472226, 9706404, 4890628, 56139064, 0573360, 29552743, 025453497 ####[facility] [address] [place] [address] Monocytes/Leukocytes Auto (Bld) [Pure # fraction] 0.6 E9/L Normal 0.2-1.0 [facility] Comment on above: Order Comment: Order Added by Discern Expert. Performed By: #### 7 [id number], 16054053, 4280999, 3250299, 7727505, 3719731, 1977296, 5153588, 53147985, 8403617, 70348167, 536045886 ####[facility] [address] [place] [address] Neutrophils/100 WBC (Bld) 70.5 % Normal 36.0-75.0 [facility] Comment on above: Order Comment: Order Added by Discern Expert. Performed By: #### 7 07119709, 62050695, 5366759, 5203222, 9501390, 4668757, 9600953, 4692292, 27944101, 7471187, 75305045, 439071493 ####[facility] [address] [place] [address] Neutrophils/Leukocyte s Auto (Bld) [Pure # fraction] 5.7 E9/L Normal 2.0-7.5 [facility] Comment on above: Order Comment: Order Added by Discern Expert. Performed By: #### 7 12001159, 66553805, 4587649, 8782882, 8295556, 6736288, 9608012, 8356926, 52436497, 6157300, 46948861, 605047553 ####[facility] [address] [place] [address] CBC w/ Auto Diffon 2 Erythrocyte distribution width (RBC) [Ratio] 15.3 % High 10.9-14.2 [facility] Comment on above: Performed By: #### 7 23794745, 28177803, 1525941, 6540416, 3153324, 8952393, 5809049, 4593856, 74379749, 0056834, 43429758, 385461832 ####[address] [place] [address] Hematocrit (Bld) [Volume fraction] 36.7 % Normal 34.0-46.0 [facility] Comment on above: Performed By: #### 7 27969962, 54699282, 3446816, 9764669, 4229604, 6212651, 4063304, 9116344, 35192543, 5770848, 08573999, 774810390 ####[address] [place] [address] Hemoglobin (Bld) [Mass/Vol] 12.2 g/dL Normal 12.0-16.0 [facility] Comment on above: Performed By: #### 7 46337371, 78824861, 3469830, 2426893, 8964768, 7078116, 0840360, 6386966, 21000146, 3857790, 42141993, 838944710 ####[facility] [address] [place] [address] MCH (RBC) [Entitic mass] 28.9 pg Normal 27.0-34.0 [facility] Comment on above: Performed By: #### 7 70835020, 54755008, 1727715, 8484819, 7499455, 6281573, 3907403, 6655057, 90385427, 9720676, 49897376, 742428931 ####[address] [place] [address] MCHC (RBC) [Mass/Vol] 33.4 g/dL Normal 31.4-36.0 [facility] Comment on above: Performed By: #### 7 32647947, 84400745, 6113070, 2617549, 0189251, 3055682, 1852686, 4694441, 62047788, 1563980, 95471902, 404197736 ####[address] [place] [address] MCV (RBC) [Entitic vol] 86.7 fL Normal 80.0-100.0 [facility] Comment on above: Performed By: #### 7 10327351, 88309716, 4467900, 0969967, 3919386, 0111623, 0355541, 7185779, 24677119, 7111168, 97066024, 454660466 ####[address] [address] Platelet mean volume (Bld) [Entitic vol] 9.0 fL Normal 6.4-10.8 [facility] Comment on above: Performed By: #### 7 44203362, 10632338, 2088572, 5059101, 4460363, 5616015, 4027051, 7357640, 30700433, 9533908, 85379129, 125691693 ####[address] [address] Platelets (Bld) [#/Vol] 223.0 E9/L Normal 150.0-500.0 [facility] Comment on above: Performed By: #### 7 19463419, 44812663, 3409791, 9725069, 3961161, 8910647, 4007499, 0879501, 46626888, 0902039, 75626757, 234464274 ####[address] [address] RBC (Bld) [#/Vol] 4.2 E12/L Low 4.3-5.9 [facility] Comment on above: Performed By: #### 7 50015078, 06557979, 7847854, 7285365, 8898809, 3322935, 8726035, 7498420, 53839480, 0163558, 41660961, 885891578 ####[facility] [address] [place] [address] WBC corrected for nucl RBC Auto (Bld) [#/Vol] 8.1 E9/L Normal 4.0-11.0 [facility] Comment on above: Performed By: #### 7 96041015, 60942859, 0700580, 3791224, 5450834, 5567581, 7537254, 8859669, 07486644, 8294266, 80693433, 475548675 ####[facility] [address] [place] [address] CHEMISTRYOrdered By: SYSTEM SYSTEM on 02-17-2022 25-hydroxyvitamin D3 [Mass/Vol] 17.4 ng/mL Low 30.0 - 100.0 ng/mL [facility] Albumin [Mass/Vol] 3.4 g/dL Normal 3.3 - 5.0 gm/dL [facility] Albumin/Globulin [Mass ratio] 1.1 {ratio} Normal 1.1 - 2.2 [facility] ALP [Catalytic activity/Vol] 71 [iU]/d Normal 21 - 98 Int._Unit/L [facility] ALT No additional P-5'-P [Catalytic activity/Vol] 17 [iU]/d Normal 6 - 46 Int._Unit/L [facility] Anion gap [Moles/Vol] 9 mmol/L Normal 6 - 16 mEq/L F [facility] AST [Catalytic activity/Vol] 19 [iU]/d Normal 5 - 43 Int._Unit/L [facility] Bilirubin [Mass/Vol] 0.2 mg/dL Normal 0.0 - 1 .1 mg/dL [facility] Calcium [Mass/Vol] 8.9 mg/dL Normal 8.9 - 11. 1 mg/dL [facility] Chloride [Moles/Vol] 108 mmol/L Normal 101 - 1 11 mmol/L [facility] Cholesterol [Mass/Vol] 173 mg/dL Normal 120 - 200 mg/dL [facility] Cholesterol in HDL [Mass/Vol] 42 mg/dL Invalid Interpretation Code [facility] Cholesterol in LDL [Mass/Vol] 109 mg/dL Normal <=129mg/dL [facility] Cholesterol in VLDL [Mass/Vol] 25 mg/dL Normal 7 - 40 mg/dL [facility] CO2 [Moles/Vol] 26 mmol/L Normal 21 - 31 mmol/L [facility] Cobalamin (Vitamin B12) [Mass/Vol] 271 pg/mL Normal 50 - 1500 pg/mL [facility] Creatinine [Mass/Vol] 0.5 mg/dL Normal 0.5 - 1.3 mg/dL [facility] Folate [Mass/Vol] 7.6 ng/mL Normal >=6.7ng/mL [facility] Re misol Free T4 index Calc [Mass/Vol] 9.74 ng/dL Normal 5.90 - 13.10 ng/dL [facility] GFR/1.73 sq M.predicted among blacks MDRD (S/P/Bld) [Vol rate/Area] mL/min/1.73 m2 Normal >=59mL/min/1. 73 m2 [facility] Chem S GFR/1.73 sq M.predicted among non-blacks MDRD (S/P/Bld) [Vol rate/Area] mL/min/1.73 m2 Normal >=59mL/min/1. 73 m2 [facility] Chem S Globulin (S) [Mass/Vol] 3.2 g/dL Normal 1.4 - 4.0 gm/dL [facility] Glucose [Mass/Vol] 101 mg/dL Normal 55 - 199 mg/dL [facility] Iron [Mass/Vol] 33 ug/dL Low 35 - 153 mcg/dL [facility] Potassium [Moles/Vol] 3.6 mmol/L Normal 3.5 - 5.3 mmol/L [facility] Protein [Mass/Vol] 6.6 g/dL Normal 6.0 - 7.8 gm/dL [facility] Sodium [Moles/Vol] 139 mmol/L Normal 135 - 145 mmol/L [facility] T4 [Mass/Vol] 8.4 ug/dL Normal 4.6 - 9.1 mcg/dL [facility] T4 uptake [Mass/Vol] 46.4 % Normal 32.0 - 48.4 % [facility] [place] Remisol Triglyceride [Mass/Vol] 127 mg/dL Normal <=149mg/dL [facility] TSH Qn 3.83 m[IU]/L Normal 0.34 - 5.60 mcIU/mL [facility] Urea nitrogen [Mass/Vol] 19 mg/dL Normal 5 - 21 mg/dL [facility] Urea nitrogen/Creatinine [Mass ratio] 38 mg/mg High 10 - 20 [facility] CHEMISTRYOrdered By: Lorene Bahena on 02-17-2022 HbA1c (Bld) [Mass fraction] 5.7 % Normal <=5.9% [facility] ChemAuto[facility] CMPon 02-17-2022 Albumin [Mass/Vol] 3.4 g/dL Normal 3.3-5.0 [facility] Comment on above: Performed By: #### 7 86069045, 28178614, 5505411, 4064411, 2639720, 1096432, 9359395, 6534732, 94817078, 0015665, 66849009, 713830524 ####[facility] [address] [place] [address] Albumin/Globulin (S) [Mass conc ratio] 1.1 Normal 1.1-2.2 [facility] Comment on above: Performed By: #### 7 89081662, 07946117, 3034736, 0623589, 0260798, 5613994, 6704695, 5713941, 68523786, 0784933, 40971875, 179378132 ####[facility] [address] [place] [address] ALP [Catalytic activity/Vol] 71 Int._Unit/L Normal 21-98 [facility] Comment on above: Performed By: #### 7 40916795, 31505306, 7605994, 8014981, 1270348, 0967537, 9199242, 4471042, 75572728, 8342943, 59243055, 930945665 ####[facility] [address] [place] [address] ALT No additional P-5'-P [Catalytic activity/Vol] 17 Int._Unit/L Normal 6-46 [facility] Comment on above: Performed By: #### 7 06448087, 40585889, 9537388, 5521398, 4069800, 9722687, 7224876, 4822296, 09949535, 7363018, 33220396, 901548068 ####[facility] [address] [place] [address] Anion gap [Moles/Vol] 9 mmol/L Normal 6-16 [facility] Comment on above: Performed By: #### 7 31956108, 71695223, 6917139, 9088954, 2990071, 2313462, 8850682, 1601991, 71349464, 9421001, 06580541, 722680238 ####[facility] [address] [place] [address] AST [Catalytic activity/Vol] 19 Int._Unit/L Normal 5-43 [facility] Comment on above: Performed By: #### 7 03540628, 85578111, 3111484, 0717718, 1555107, 6004887, 1507660, 3162672, 91982670, 5413546, 50123468, 185350276 ####[facility] [address] [place] [address] Bilirubin [Mass/Vol] 0.2 mg/dL Normal 0.0-1.1 [facility] Comment on above: Performed By: #### 7 58134308, 54896574, 9628775, 1983890, 3747748, 4776407, 7159150, 8128493, 43088072, 0944214, 44642978, 930952235 ####[facility] [address] [place] [address] Calcium [Mass/Vol] 8.9 mg/dL Normal 8.9-11.1 [facility] Comment on above: Performed By: #### 7 38423397, 15319011, 9136072, 8113041, 1269883, 2596833, 7791309, 2540404, 70285451, 0112429, 30746807, 363826371 ####[facility] [address] [place] [address] Chloride [Moles/Vol] 108 mmol/L Normal 101-111 [facility] Comment on above: Performed By: #### 7 98445627, 16043711, 6024359, 5997967, 2072157, 2187810, 6236375, 5098865, 00574476, 8141031, 14964711, 410880656 ####[facility] [address] [place] [address] CO2 [Moles/Vol] 26 mmol/L Normal 21-31 [facility] Comment on above: Performed By: #### 7 82284452, 51398708, 1038076, 4910034, 8169997, 0695348, 3658149, 1511065, 19637105, 7003306, 43219533, 454122444 ####[facility] [address] [place] [address] Creatinine [Mass/Vol] 0.5 mg/dL Normal 0.5-1.3 [facility] Comment on above: Performed By: #### 7 45720659, 44320860, 3860281, 9156303, 5604273, 1838204, 3601462, 5950300, 82373798, 0225675, 02220836, 314472118 ####[facility] [address] [place] [address] Globulin (S) [Mass/Vol] 3.2 g/dL Normal 1.4-4.0 [facility] Comment on above: Performed By: #### 7 59212117, 20743306, 8735229, 5597148, 9686554, 4945130, 5570459, 7614789, 22767613, 2594292, 77374403, 681346775 ####[facility] [address] [place] [address] Glucose [Mass/Vol] 101 mg/dL Normal 55-199 [facility] Comment on above: Result Comment: If t his glucose result represents a fasting glucose, interpretation should refer to the following reference range: 55-99 mg/dL Performed By: #### 7 76643829, 16702820, 7568555, 2661594, 2772652, 7859769, 1326123, 8793039, 19688459, 4109361, 30591701, 539541634 ####[facility] [address] [place] [address] Potassium [Moles/Vol] 3.6 mmol/L Normal 3.5-5.3 [facility] Comment on above: Performed By: #### 7 27600557, 17301670, 1398130, 1873171, 8953887, 7875244, 5257615, 5912345, 03273189, 1289337, 36738608, 752874778 ####[facility] [address] [place] [address] Protein [Mass/Vol] 6.6 g/dL Normal 6.0-7.8 [facility] Comment on above: Performed By: #### 7 29950312, 26501886, 9353423, 9887529, 4643731, 0454135, 3831920, 4205734, 17438957, 7934020, 33384631, 697287030 ####[facility] [address] [place] [address] Sodium [Moles/Vol] 139 mmol/L Normal 135-145 [facility] Comment on above: Performed By: #### 7 51829929, 84486258, 8114887, 9311254, 0600289, 9800559, 1559533, 2823851, 21931941, 5732785, 75990250, 729260022 ####[facility] [address] [place] [address] Urea nitrogen [Mass/Vol] 19 mg/dL Normal 5-21 [facility] Comment on above: Performed By: #### 7 85472525, 47841704, 7257404, 6601937, 5800413, 9402939, 1415792, 6032373, 34955787, 6075674, 00429733, 457439186 ####[facility] [address] [place] [address] Urea nitrogen/Creatinine [Mass ratio] 38 No Units High 10-20 [facility] Comment on above: Performed By: #### 7 75799956, 30094838, 9417362, 7336012, 6958823, 2719475, 9404934, 5921240, 94202471, 9550602, 94634511, 820507398 ####[facility] [address] [place] [address] Consent for Treatmenton Consent for Treatment [id number] 20 [id number] #1.00CD:127 Normal [facility] Folateon 02-17-2022 Folate [Mass/Vol] 7.6 ng/mL Normal >=6.7 [facility] Comment on above: Performed By: #### 7 96009506, 66036667, 6817946, 6470308, 1341098, 7712416, 3889668, 2422138, 60408936, 8636987, 81870189, 998212547 ####[facility] [address] [place] [address] HEMATOLOGYOrdered By: SYSTEM SYSTEM on 02-17-2022 Basophils/100 WBC (Bld) 0.4 % Normal 0.0 - 2.0 % [facility] HemeAutoSS Basophils/Leukocytes Auto (Bld) [Pure # fraction] 0.0 E9/L Normal 0.0 - 0.2 E9/L [facility] HemeAutoSS Eosinophils/100 WBC (Bld) 2.8 % Normal 0.0 - 8.0 % [facility] HemeAutoSS Eosinophils/Leukocyte s Auto (Bld) [Pure # fraction] 0.2 E9/L Normal 0.0 - 0.5 E9/L [facility] HemeAutoSS Lymphocytes/100 WBC (Bld) 19.0 % Normal 14.0 - 50.0 % [facility] HemeAutoSS Lymphocytes/Leukocyte s Auto (Bld) [Pure # fraction] 1.5 E9/L Normal 1.0 - 4.0 E9/L [facility] HemeAutoSS Monocytes/100 WBC (Bld) 7.3 % Normal 4.0 - 14.0 % [facility] HemeAutoSS Monocytes/Leukocytes Auto (Bld) [Pure # fraction] 0.6 E9/L Normal 0.2 - 1.0 E9/L [facility] HemeAutoSS Neutrophils/100 WBC (Bld) 70.5 % Normal 36.0 - 75.0 % [facility] HemeAutoSS Neutrophils/Leukocyte s Auto (Bld) [Pure # fraction] 5.7 E9/L Normal 2.0 - 7.5 E9/L [facility] HemeAutoSS HEMATOLOGYOrdered By: Adrienne Dotson on 02-17-2022 Erythrocyte distribution width (RBC) [Ratio] 15.3 % High 10.9 - 14.2 % [facility] HemeAutoSS Hematocrit (Bld) [Volume fraction] 36.7 % Normal 34.0 - 46.0 % [facility] HemeAutoSS Hemoglobin (Bld) [Mass/Vol] 12.2 g/dL Normal 12.0 - 16.0 gm/dL [facility] HemeAutoSS MCH (RBC) [Entitic mass] 28.9 pg Normal 27.0 - 34.0 pg [facility] HemeAutoSS MCHC (RBC) [Mass/Vol] 33.4 g/dL Normal 31.4 - 36.0 gm/dL [facility] HemeAutoSS MCV (RBC) [Entitic vol] 86.7 fL Normal 80.0 - 100.0 fL [facility] HemeAutoSS Platelet mean volume (Bld) [Entitic vol] 9.0 fL Normal 6.4 - 10.8 fL [facility] HemeAutoSS Platelets (Bld) [#/Vol] 223.0 E9/L Normal 150.0 - 500.0 E9/L [facility] HemeAutoSS RBC (Bld) [#/Vol] 4.2 E12/L Low 4.3 - 5.9 E12/L [facility] HemeAutoSS WBC corrected for nucl RBC Auto (Bld) [#/Vol] 8.1 E9/L Normal 4.0 - 11.0 E9/L [facility] HemeAuto[facility] FyqU9deq 02-17-2022 HbA1c (Bld) [Mass fraction] 5.7 % Normal <=5.9 [facility] Comment on above: Performed By: #### 7 50321238, 93258301, 1517722, 2719982, 8188886, 3408272, 0166547, 3379711, 79637182, 5737469, 76464877, 067362828 ####[facility] [address] [place] [address] Ironon 02-17-2022 Iron [Mass/Vol] 33 microgram/dL Low 35-[address] [facility] Comment on above: Performed By: #### 7 94866636, 11464602, 3102269, 1396885, 9901905, 5790884, 7632080, 2958527, 21253472, 3499315, 18681155, 557124005 ####[facility] [address] [place] [address] Lipid Panelon 02-17-2022 Cholesterol [Mass/Vol] 173 mg/dL Normal 120-200 [facility] Comment on above: Performed By: #### 7 74780021, 20579764, 1485068, 4367202, 7951704, 3565963, 7331403, 2609129, 05755174, 4240490, 01621649, 304177199 ####[facility] [address] [place] [address] Cholesterol in HDL [Mass/Vol] 42 mg/dL Invalid Interpretation Code [facility] Comment on above: Result Comment: HDL > or equal to 60 mg/dL: Low cardiovascular risk HDL < 40 mg/dL : High cardiovascular risk Performed By: #### 7 50810197, 53818178, 4134553, 2442219, 2474019, 5424996, 4756113, 9141524, 68734272, 1714304, 08899092, 748102427 ####[facility] [address] [place] [address] Cholesterol in LDL [Mass/Vol] 109 mg/dL Normal <=129 [facility] Comment on above: Performed By: #### 7 09714912, 68721497, 2346271, 4752879, 0493466, 8407321, 0705405, 2299609, 96238376, 1228470, 30187623, 843193291 ####[facility] [address] [place] [address] Cholesterol in VLDL [Mass/Vol] 25 mg/dL Normal 7-40 [facility] Comment on above: Performed By: #### 7 96227254, 01507770, 3585046, 5986636, 1719516, 3248930, 3082873, 8528913, 97648942, 3747146, 71450428, 047030512 ####[facility] [address] [place] [address] Triglyceride [Mass/Vol] 127 mg/dL Normal <=149 [facility] Comment on above: Performed By: #### 7 98516941, 76882051, 3696302, 3241222, 1237178, 0849075, 1661729, 2954177, 87067268, 9819937, 45445856, 159610049 ####[facility] [address] [place] [address] Physician Orderon 02-17-2022 Physician Order [id number] #1.00CD:127 Normal [facility] Thyroid IIon 02-17-2022 Free T4 index Calc [Mass/Vol] 9.74 ng/dL Normal 5.90-13.10 [facility] Comment on above: Performed By: #### 7 03776568, 38040642, 4851883, 9241086, 7514361, 9940041, 5369828, 5955159, 01131267, 2109588, 91827024, 730086060 ####[facility] [address] [place] [address] T4 [Mass/Vol] 8.4 microgram/dL Normal 4.6-9.1 [facility] Comment on above: Performed By: #### 7 42047703, 53002052, 2138993, 0024740, 1945966, 5988598, 1543836, 7433792, 72116150, 9121680, 13449691, 332776108 ####[facility] [address] [place] [address] T4 uptake [Mass/Vol] 46.4 % Normal 32.0-48.4 [facility] Comment on above: Performed By: #### 7 57577780, 91370927, 6210752, 9988592, 8178322, 4870539, 2558505, 2300630, 72471136, 6565986, 79762585, 878268468 ####[facility] [address] [place] [address] TSH Qn 3.83 m[IU]/L Normal 0.34-5.60 [facility] Comment on above: Performed By: #### 7 01437908, 26721423, 9032079, 6132732, 0921282, 9933230, 9092551, 3831387, 20897976, 2585153, 94119308, 395233085 ####[facility] [address] [place] [address] Vit B12on 02-17-2022 Cobalamin (Vitamin B12) [Mass/Vol] 271 pg/mL Normal 50-1500 [facility] Comment on above: Performed By: #### 7 23437154, 19068452, 3503499, 4718025, 3696765, 6077872, 3751403, 0885976, 39008768, 5545006, 52025359, 653143628 ####[facility] [address] [place] [address] Vitamin D 25 Hydroxyon 02-17 25-hydroxyvitamin D3 [Mass/Vol] 17.4 ng/mL Low 30.0-100.0 [facility] Comment on above: Result Comment: Vit leonard D deficiency has been defined as a level of serum 25-OH vitamin D less than 20 ng/mL (1,2) by the [place] [employer] and an Endocrine Society practice guideline. The Endocrine Society further defined vitamin D insufficiency as a level between 21 and 29 ng/mL (2). 1. IOM ([place] of [employer]). 2010. Dietary reference intakes for calcium and D. [place]: The National Academies Press. 2. Khadra MF, Willa RAHMAN, Jones FOUNTAIN, et al. Evaluation, treatment, and prevention of vitamin D deficiency: an Endocrine Society clinical practice guideline. JCEM. 2010; 96 (7):1911-30. Performed By: #### 7 60759868, 69049277, 4110315, 0833803, 2101521, 8893252, 6143249, 7511355, 19279109, 4703046, 45228667, 640976519 ####[facility] [address] [place] [address] eGFRon 02-17-2022 GFR/1.73 sq M.predicted among blacks MDRD (S/P/Bld) [Vol rate/Area] mL/min/{1.73_m2} Normal >=59 [facility] Comment on above: Order Comment: Order added by Discern Expert. Result Comment: eGFR is race adjusted. AA=. Performed By: #### 7 36948725, 93846617, 9534748, 8885571, 3091803, 6966672, 8126207, 0914559, 96052946, 8965708, 09586892, 282204055 ####[facility] [address] [place] [address] GFR/1.73 sq M.predicted among non-blacks MDRD (S/P/Bld) [Vol rate/Area] mL/min/{1.73_m2} Normal >=59 [facility] Comment on above: Order Comment: Order added by Discern Expert. Result Comment: Title I Assistant bandar kidney disease could be indicated at eGFR's of less than 60 mL/min/1.73m2. Kidney failure is indicated at less than 15 mL/min/1.73m2. Performed By: #### 7 64918876, 09598537, 0901938, 0961353, 6565126, 6825856, 4714773, 6638129, 40841905, 5112846, 72624358, 704516350 ####[address] [place] [address] Coding Summary.on 01-18-2022 Coding Summary. CD:[id number] Gh0bWw+PGhlYWQ+PE1FV WPaG79mhQVmtI1DW9vAZ P9VHOPZUOMADK5STB2du ZE2NJgjN3JhjwUu YmpqqTLuMA35HOt4LZH4 dRcsECuqjA0zrKPnJ0a6 AyIgXQ67cZ86YDtyOJBk AnM5WuGdsvzeeITu O9npQwPlyZMsFah+PHRh YmxlIHdpZHRoPScxMDAl XvNlxXyqMV0qIj0zZOHd LWNvbGxhcHNlOiBj a3gmGJFoAEuwOF3ruCyx Q6DfgEU8XMXas9v1Bw04 dHI+EOGwQFY0zDrtZCar e424OoXui1wdPER1 oVHsQUnkZPU8X40cv4T5 PGUnLYKgUFV7tVZ4eW0n bDdzqaogI7PlzFQvUcA8 CKM3lULqqX7pjSay jlovfX2jVec+W28DQX0D HXLQIL3BSzk3K8FkVrev dHI+JG46YRUqUD60nGAg xUNnh9bqtAz8TeIo XZNtQGG6bMruCKegn8Bp OGRhC34dgOHga3J5HKZj fHcemHOcNwJuxLA2wR6h ZJksbovwo3fbydkr Lbtip7rrxh18jU91H94y VQerKJQdUEV7HVNiLDJn zGluuz3jeY1zSr1+IDxj w9ocb1hbiCe1LuHs NLYrcxHmqPqfEYX8n5Kx Os55M0ImeHfiw0HrCsy9 ly30bESjy6B2dMO1WPdw RMLczH1oAZpcLlA2 QAKyJdUsfW39iGPzUFnv Km1nvRiznXdiCY6cVBWt imtvUVPviP8kLLMhxWDg tBejAG3jYYMcewmu w764XkUyWYQ6ZOWznBOk E0ZvbB5qHhIbFHVtHDLp A9BqpXNkHWbpP299BDzy UlE4GSOkmhHkH3Kw HRHrbQqqZeR5y9R5It7H z9FyzdsiQMC1WKboAYX6 WyL2YlLuBsV2K5MyQlk7 DXReqTnnZZ2qP8Dd CFEodiflbejonEY6RNAf BQHljQ37xLGcYCgwQe9r z4E3k618LJHaTNCudS15 Ve6wdWanOGUcvFEJ bN1nkzkve3kkxzapDpCn MLKxZEx7BNb8NPLusOuw YkYuHSJ2ZeQ9PLC3oCMy xI3ksJvcpanayP0t Oyc+I08nnK3uPQM7GMY5 gdseMTLlypSyWM10JK52 W9DhEbqwwFRmoQS+PGRp opUqjRkzDC6pOeHn m5cpi5NnWEqxO7JoCGEp UJjpTrs7BMOjSIZ2tUO1 wC3hCRQxZLiaz8K7sPU6 T4YvfkFccq7mi1qj TZVkJMxxR53kuLYmv1V1 EXSomIA2ESTvaEwyDhUp pQ16Yai+DMKlsRgzf7Fw Fgzno2wfw3bqvMu1 IjMwJSIgdmFsaWduPSJ0 e0NsSz43C99xFYzmAUYf OJUvAVWxEUFngMeynr6l eA3bWl7+PGNvbCB3 kEL8tP7aLZShOeI6BHof Y846EzPkzGDfZzeld8mm c5hwvVi7ZwYnKCBgsmLi ySleKPJ9o0HeRk17 J31uXHubRXTuQCRkOLAg VHFbcQajic6ccI7vNo0+ YX2xa3sbfs79zU93zSK+ NVLcRQE4rMymZYeq XFZkuD3oTInzMgN3TGQh HcCewQ31fEVlCMtyLb5j yOeodSczFY9pHEMjgkcx i490CeCmj0dqNCDi jJBlYAymDQO6N82gv8I9 HZRlGBNxDHG7oBL0dO7w bGlnbjogbGVmdDsgdmVy pZgiENmlVZkhL597 IHRvcDsnPlBhdGllbnQg IqUcZWe1S1VhDmx2IGTy wWytYB2nxGXnUAhpRm5t mLefiRoaSO2nWHGi xpjvo145JoIql7fnVDKk wXQwGBrzFIE5V28ks9E9 DNEyOEHoAQB6wYX4pN9n bGlnbjogbGVmdDsg ouUcpWwvILycMTaqV348 IHRvcDsnPkJpcnRoIERh pWC3UI50GQ05qQFnf6A7 tYJ9V3LgABInqxux vwjkfED1JVLrQPGlfH00 Qc2njPvyNg6qRBUhXJW9 FGUnfXEhI5ZzmG1wDuWh LDOpXHBdO3WseFEh TWumM125IUqeXvM9NDQn wjQjZ4AjZCTtcDrmQbC6 y9G7Yg8XW0C1LV16CI50 iSJkk9D9bUX9X9Ye IPLelokkknqbvFQ4LEOj LCEfaZ07Qd2neBqnCh4l VINlDCP4JQBsiVSoB4Iu dF3sDaXtRERhTUUm W8IyqBGsPMbnT871UYlm FgY0FSWywnBxW0MjZJHh tKqePpQ1k8P0Hs0OYZb1 CK86DP16gAUrh0M8 eOI9Z2BbYRPbjjhdnfja wYP7VRElQXOxvH38Be0h zDwhJw6bLZXxMTA4EPXr sTQvG8IcyH7jZnUt RBVwYARoJ3QteSIqBMtl J399BGmwSyU5HCBsdmZs C1SkZIWwkWuwZbN7r0T8 Jd9QBQJzYQ42TDP1 tFE5TQ07UY70G5HgCthf dGFibGU+PHRhYmxlIHdp ZHRoPScxMDAlJyBzdHls BT3iIf4pJQOePZNf lGkioGLnDlZeo6taQYOc ZFrqXH1xrUkzC7StxVN2 ZOCnn9t8Dv96F33yC8Pg dXA+FBHluXI6nDO3 wI2wLyAlFmF8QVjbR056 XmNmdBJlXaezw1acz2pj lNs5XpN6NOHlgrYxqUej JAH1x5BsXt83T82c IHdpZHRoPSIxNSUiIHZh iVjlss3rvI5fIi0+PGNv qKC8vKJ8oH0fJwJmPqD2 KOwiR609IbQmuTIb Lzlqn6gnw1zawDn7GkZk HRKzkrArlMxhSZB4n3Ce Av35I6MlrOztt4GwRxc3 az47kJMpy8J2aYZ8 Y9HgQPHmkgvqgDHpsExy ZX2mQMRzplfeDLJfrN0b XXLsI6o8KfPoRaS9SRrj Z3KkwcM8IJPhvDUi AWrpYMH4K90km8D0KHBz BCBlJQX2fBZ2aA8rpSwg bjogbGVmdDsgdmVydGlj NYtuOWdbG411NYYu gJgsDVRjsI9wOJXgcFKn oMteYV1gELQfyecpYkyH YTwPRW8BONCCSkKOKGDi TDwvdGQ+PHRkIHN0 fBspACzzOVAxtH0sWGIq E7v6PeLrJsH8ZDfnK8Fs PQSrbjdhAy63cG7kAlWv YmY5UFezM7XdilO8 LRJzwCZsTWtrZQE3Q33m c4K9JVTdOOSoEEK1lDC9 bH7elNktuqrhxIMjqNmy dmVydGljYWwtYWxp H301JPStgGlkQaPeUdDb HbM7CqE8V9GjWvt8UOGg wVoyPT1bdVWgYBnnPb6j lTjboKcfRL9kRDKt wwhsPPIthX3kQNGurCJd bDlfRU2xDKGkijxbx738 HoXeOSJ7NBGjcAZlR6Wq yH3rDzSoSEFbHJEj C3RbrZJaDCarH613XMvm ZoK9SKNczcQyB7YnIWUp cLbhCiG6x9Z6Pc95WIIQ ZWFyczwvdGQ+PHRk UTP7dEoyODadCSYliK2f BIHnJ2z5KyWdTcY9XIuz C5WwWZJlbxgxOi98jY6z JhHsTiE1BWpqE6Ws zkF8TDFsmPOcRIzzXQT6 D80nj8Y5PHHiWQHzKOT1 jDM6pY6ruZwkilgydXJq dDsgdmVydGljYWwt KXnpO206UKTyiPwzWvOr bWFsZTwvdGQ+PHRkIHN0 dUqaZKuoFNNlhG7cYZTn W1l0EnBrExG2YRyg X9WjQGVfqgziGw99pN5b NvWvHhX1WNmbB2OkbyB3 LNQecLZjKIonJGK6Z13t u9Z4MFTrOLThOBG0 mZU0rM5trDbfczhcuUMd dDsgdmVydGljYWwtYWxp B319DVYqeOwkNlWcF7Za cmluZzwvdGQ+PC90 nd89S1LsUbbzEbk7YOMk GZC2kKT3bC5gHHUpQWks d0X5zXD5H6WwdpAyfv2n e9feBPMcIZsvW72g wJSjv2O3AEEghVV0PFZk wDhqSkQteR78Jyb+PGNv gFivt2GjQgypr6yjd9tk uRz2IsDwPMEfuaXr oDepKZK2n4DqUw62I19g IHdpZHRoPSIzMCUiIHZh gMiuft1grK8cTs8+PGNv dSK6xZP5uL5gCyBh FoT0MVaxM341ScZxkWDq Hpzoj2myu9zfrPw5HeLp OFZjexPdtYjyHKW2y2Vn Sn75C9ZmpYfoo0Xi Car8oj12aEAgg9Y6bMI3 G7WiEUTadfxmbGGtpVrr MA4aARDhttbbUPGkkI2d DJDyN7y8PzZvAvU7 SXpqY8MycmR6DCEjsXZa PNNgeJKYaD5ryrxgw7hk luoqQgPwAFRoREn1VDr7 LWFsaWduOiBsZWZ0 WaK9OFU9sBGewY1loTnz ilalmD6kLxp+QYk4p2yr wJNmDZ7onVM4CP56SZ33 wRBub9D7pBL0Z4Ky KCPklpvbzrnyzDP7CBDb EULuhV54Ci8blEwuOg3w ZERjDKH4HLEhvDLcN1Ua tY7cYoIuCJNzQFBt F1XwbFNqWSypH495TWlh GvH4NQPknwVyD2TjFDBm fZxxRmE3x8R8Qd3EQC16 VL19ZO52nQRrc6E0 bBD6X5UxTWSviuaunlfo mWW4FOLfYMTphE02Sy0x dEzhEn3fGQLfJOX4RRHv uFZeP5WghD4lEwQt UKXqUYGuN4BhqACxWAag D299XSjfWlL8NMVnnrAr W3PpZRJrzYbtPkQ3m5V0 Eh1WYz36WW17QQ55 nSQhn5K5dFR2Q8LmCYSp vvoswendeWU6SRDpNXRu kR15Si6osGkuXk7cTBZb AYF1ICXewFAyV0Aa dY5vPqLkAMOtFIXcC5Kv xAPfFLltJ204SOhaKdB3 NYSggqQxI5OeLOCjsIsk JnX0m9M4Pb6SPPxl pik3B2DzHagniKL+PC90 JHDxAO82bUFvmRJsc6jh [id number] (more content not included)... Normal [facility] COVID-19 ([facility])on 01-17-2022 SARS-CoV-2 (COVID-19) RNA PAVAN+probe Ql (Resp) Detected Abnormal Not Detected [facility] Comment on above: Result Comment: This test result should be correlated with clinical presentations and medical history by a healthcare provider to determine its clinical significance. This assay was performed by a reverse transcriptase real-time polymerase chain reaction (rt PCR) method on the [employer] system. This test has been authorized only for the detection of nucleic acid from SARS-CoV-2, not for any other viruses or pathogens. This test has not been FDA cleared or approved. This test has been authorized by FDA under an Emergency Use Authorization (EUA). This test is only authorized for the duration of time the declaration on that circumstances exist justifying the authorization emergency use of in vitro diagnostic tests for detection and/or diagnosis of COVID-19 infection under section 564 (b) (1) of the Act, 21 U.S.C. 360 bbb-3 (b) (1), unless authorization is terminated or revoked sooner. Performed By: #### 2 [id number] ####[facility] [id number] [place] [address] SARS-CoV-2 (COVID-19) RNA PAVAN+probe Ql (Unsp spec) Pass Normal Pass [facility] Comment on above: Performed By: #### 2 [id number] ####[place] [address] Specimen source Nom (Unsp spec) Nasal Normal [facility] Comment on above: Performed By: #### 2 [id number] ####[place] [address] ADMITTED TO INTENSIVE CARE UNIT FOR CONDITION OF INTEREST:FIND:PT: Unknown Normal [facility] Comment on above: Performed By: #### 2 [id number] ####[place] [address] EMPLOYED IN A HEALTHCARE SETTING:FIND:PT: Unknown Normal [facility] Comment on above: Performed By: #### 2 [id number] ####[place] [address] FIRST TEST FOR CONDITION OF INTEREST:FIND:PT: Unknown Normal [facility] Comment on above: Performed By: #### 2 [id number] ####[place] [address] HAS SYMPTOMS RELATED TO CONDITION OF INTEREST:FIND:PT: Unknown Normal [facility] Comment on above: Performed By: #### 2 [id number] ####[place] [address] HOSPITALIZED FOR CONDITION OF INTEREST:FIND:PT: Unknown Normal [facility] Comment on above: Performed By: #### 2 [id number] ####[place] [address] STATUS:FIND:PT: Unknown Normal [facility] Comment on above: Performed By: #### 2 [id number] ####[place] [address] RESIDES IN A CONGREGATE CARE SETTING:FIND:PT: Unknown Normal [facility] Comment on above: Performed By: #### 2 [id number] ####[place] [address] Consent for Treatmenton 0 Consent for Treatment [id number]#1.00CD:127 [facility] Physician Orderon 01-17-2022 Physician Order [id number] #1.00CD:127 [facility] Vital Signs Date Time Vital Sign Value Performing Clinician Helen jacome 05-17-2022 13:43-0500 Blood Pressure Location Vinod NILL [facility] 05-17-2022 13:43-0500 Diastolic blood pressure 86 mm[Hg] Vinod NILL [facility] 05-17-2022 13:43-0500 Heart rate 72 /min Vinod NILL [facility] 05-17-2022 13:43-0500 Respiratory rate 16 /min Vinod NILL [facility] 05-17-2022 13:43-0500 Systolic blood pressure 122 mm[Hg] Vinod NILL [facility] Encounters Encounter Date Encounter Type Care Provider Facility Start: 10-26-2022 End: 10-26-[address] ELEUTERIO CARRANZA . Facility: Start: 09-30-2022 End: 10-01-[address] ELEUTERIO CARRANZA . Facility: Start: 08-12-2022 End: 08-13-[address] ELEUTERIO CARRANZA . Facility: Start: 07-08-2022 End: 07-09-2022 ambulatory Vinod BUSBY Facility:[facility] Start: 06-22-2022 End: 06-23-2022 ambulatory Vinod BUSBY Facility:CD:[id number] Start: 06-20-2022 Encounter for preprocedural laboratory examination DR ELEUTERIO CARRANZA . [facility] Start: 06-17-2022 End: 06-18-2022 Encounter for preprocedural laboratory examination DR ELEUTERIO CARRANZA . Facility:[facility] Start: 06-17-2022 End: 06-18-[address] ELEUTERIO CARRANZA . Facility:[facility] Start: 05-17-2022 End: 05-18-2022 ambulatory Eleuterio Carranza PROVIDER Facility:[facility] Start: 05-17-2022 End: 05-17-2022 Patient encounter procedure Vinod BUSBY General [facility] Start: 05-06-2022 End: 05-07-[address] ELEUTERIO CARRANZA . Facility:[facility] Start: 05-03-2022 End: 05-04-[address] ELEUTERIO CARRANZA . Facility:[facility] Start: 05-02-[address] ELEUTERIO CARRANZA . Facili ty:[facility] Start: 04-27-[address] ELEUTERIO CARRANZA . Facili ty:[facility] Start: 04-15-2022 End: 04-16-[address] ELEUTERIO CARRANZA . Facility:[facility] Start: 04-08-2022 End: 04-09-[address] ELEUTERIO CARRANZA . Facility:[facility] Start: 03-30-2022 ambulatory Eleuterio Carranza PROVIDER Fa cility:[facility] Start: 03-29-2022 End: 03-30-[address] ELEUTERIO CARRANZA . Facility:[facility] Start: 03-08-2022 End: 03-09-[address] ELEUTERIO CARRANZA . Facility:[facility] Start: 02-17-2022 End: 02-18-2022 ambulatory Eleuterio Carranza PROVIDER [facility] Start: 02-17-2022 End: 02-17-2022 Patient encounter procedure Eleuterio Carranza [facility] Start: 01-17-2022 End: 04-18-2022 ambulatory AYAAN BAH Facility[facility] Start: 01-17-2022 End: 04-17-2022 Recurring AYAAN BAH [facility] Procedures Date Procedure Procedure Detail Performing Clinician Start: 08-10-2011 Colonoscopy Vinod AGARWAL Appendectomy Vinod BUSBY Cholecystectomy Vinod BUSBY Colonoscopy Vinod BUSBY Dilation and curettage Yeison BUSBY Exploratory laparotomy Yeison BUSBY Total hysterectomy v ia vaginal approach Vinod BUSBY Immunizations Immunization Date Immunization Notes Care Provider Fa cility NEGATED: Highlighted row has not occurred!05-17-2022 influenza virus vaccine, unspecified formulation Vinod BUSBY [facility] [place] Payers Date Payer Category Payer Unknown [id number] 2.16.8 [id number] 1971 Unknown [id number] 2.16.8 40.1.722885.3.579.2.727 1971 Unknown [id number] 2.16.8 40.1.667068.3.579.2.727 1971 Unknown [id number] 2.16.8 40.1.269646.3.579.2.727 1971 Unknown [id number] 2.16.8 40.1.574084.3.579.2.727 1971 Unknown [id number] 2.16.8 40.1.552365.3.579.2.727 1971 Unknown [id number] 2.16.84 0.1.311939.3.579.2.593 1971 Unknown [id number] 2.16.84 0.1.199008.3.579.2.593 1971 Unknown [id number] 2.16.84 0.1.307834.3.579.2.593 1971 Unknown [id number] 2.16.84 0.1.004208.3.579.2.593 1971 Unknown [id number] 2.16.84 0.1.044215.3.579.2.593 1971 Unknown [id number] 2.16.84 0.1.623976.3.579.2.593 1971 Unknown [id number] 2.16.84 0.1.150690.3.579.2.593 1971 Unknown [id number] 2.16.84 0.1.409586.3.579.2.593 1971 Unknown [id number] 2.16.84 0.1.475749.3.579.2.593 1971 Unknown [id number] 2.16.84 0.1.895822.3.579.2.593 1971 Unknown [id number] 2.16.84 0.1.584880.3.579.2.593 1971 Unknown [id number] 2.16.84 0.1.601103.3.579.2.593 1971 Unknown [id number] 2.16.84 0.1.481277.3.579.2.593 1971 Unknown [id number] 2.16.84 0.1.242152.3.579.2.593 1971 Unknown [id number] 2.16.84 0.1.418229.3.579.2.593 1959 Medicaid [id number] 1958 Self-pay 1958 Unknown [id number] Social History Date Type Detail Facility [facility] Comment on above: denies Sex Assigned At Female [facility] Tobacco smoking status No Smokin g Status Entered [facility] Start: 05-17-2022 Tobacco smoking status Heavy t obacco smoker (finding) [facility] [place] Tobacco smoking status Never [facility] [place] Functional Status Date Assessment Result Facility 05-17-2022 Functional Status N/A [facility] 06-22-2022 Note Date & Type Note Facility 06-22-2022 Note OPERATIVE NOTE OPERATION DATE: 06/22/2022 PREOPERATIVE DIAGNOSIS: Personal history of colon polyps. POSTOPERATIVE DIAGNOSIS: A 3 mm sigmoid polyp. PROCEDURE: Colonoscopy to cecum. SURGEON: Vinod Nill, M.D. ANESTHESIA: Monitored anesthesia care. ESTIMATED BLOOD LOSS: Less than 1 mL. INDICATIONS AND CONSENT: Patient is a 51-year-old female with personal history of colon polyps. Indications, risks, benefits, alternatives of proceeding with colonoscopy were explained extensively to the patient, including the risks of bleeding, colon perforation or anesthetic complications. All of her questions were answered. Informed consent was obtained. PROCEDURE: Patient brought to the operating room, placed in the left lateral decubitus position. Monitored anesthesia care was provided. Rectal exam was performed which showed no masses or blood. The scope was inserted into the anal canal. Under direct visualization was advanced. With the aid of abdominal compression, it was advanced to the cecum where cecal markings were clearly identified. There was noted to be a good prep. Upon withdrawal of the scope, mucosal surfaces were carefully examined. There were no mass lesions or inflammatory changes. No significant diverticulosis. At 30 cm in the distal sigmoid, there was noted to be a 3 m sessile polyp that was removed with cold biopsy forceps with good hemostasis. The scope was retroflexed in the anal canal. There were noted to be some prominent rectal veins. No significant hemorrhoidal disease. No evidence of bleeding. The scope was then withdrawn. Patient tolerated procedure well, was sent to recovery room in good condition. Follow up colonoscopy should be in five years, but may change depending on the pathology results. CC: Eleuterio Carranza M.D. [facility] Clinical Note 05-17-2022 Note Date & Type Note Facility 05-17-2022 Note Chief Complaint consultation for colonoscopy HPI Staff 51 year old female presents on consultation from Dr. Carranza for colon recall. Last colonoscopy completed 2011 with transverse colon polypectomy; pathology not available. Denies abdominal or rectal pain. No rectal bleeding or change in bowel habits. Denies nausea or vomiting. No explained weight loss. Sister with history of colon cancer, diagnosed age 34. History of Present Illness 51 yo female with h/o sleep apnea, GERD, Meniere disease, referred for surveillance colonoscopy; last colonoscopy 2011 with removal of small transverse colon polyp, pathology not available; was to have 3 year f/u; fmhx of colon cancer in patient's sister, dx at age 34 and of the disease; no fmhx of IBD; denies change in bms or blood in stools, no abdominal complaints; abdominal operations significant for appendectomy, cholecystectomy, hysterectomy and multiple laparoscopies for endometriosis; on Diclofenac as needed, no asa, no SBE prophylaxis; smokes 1/2 ppd. Review of Systems PHQ Score Initial Depression Screen Score: 0 Physical Exam Vitals & Measurements HR: 72(Peripheral) RR: 16 BP: 122/86 HT: 65 in HT: 165 cm WT: 126 kg WT: 277.2 lb BMI: 46.28 HEENT: normal conjunctiva, sclera clear, no scleral icterus, EOM intact, PERRLA, oral mucosa moist without lesions. Neck: trachea midline, no mass, symmetric, no thyromegaly or nodules, no adenopathy Respiratory: lungs CTA, respirations non labored. Cardiovascular: regular rate and rhythm, no murmur, no pedal edema or varicosities. Gastrointestinal: obese, soft, non distended, no tenderness, no masses, no palpable hernias, diastasis recti no, no hepatosplenomegaly; normal bs Lymphatic: no cervical adenopathy, Musculoskeletal: normal gait, digits and nails without infection, nodes, cyanosis, clubbing. Skin: no rashes, no lesions, no ulcers, no subcutaneous nodules, induration. Psychiatric/Neuro: oriented to time, place, person, judgement normal, affect appropriate for age, insight intact, no focal deficits. Tests: review of old records completed, Discussed surgical options, risks, and possible complications with patient. Assessment/Plan 1. Personal history of colonic polyps (Z86.010: Personal history of colonic polyps) plan colonoscopy under anesthesia, informed consent obtained. 2. Family history of colon cancer (Z80.0: Family history of malignant neoplasm of digestive organs) see # 1 Follow-up No qualifying data available Problem List/Past Medical History Ongoing BMI 45.0-49.9, adult Dyshidrotic eczema Family history of colon cancer Hemorrhoids History of anxiety History of depression History of Helicobacter pylori infection IBS (irritable bowel syndrome) Meniere's disease Personal history of colonic polyps PTSD (post-traumatic stress disorder) Sleep apnea Historical No qualifying data Procedure/Surgical History Colonoscopy (08/10/2011), Appendectomy, Cholecystectomy, Colonoscopy, Colonoscopy, Dilation and curettage, Exploratory laparotomy, Exploratory laparotomy, Vaginal total hysterectomy. Medications diclofenac sodium 75 mg Oral EC Tab, 75 mg= 1 tab(s), Oral, BID Dulera 100 mcg-5 mcg/inh inhalation aerosol, 2 puff(s), Inhalation, BID Levsin 0.125 mg SL Tab, 1-2 tabs, SubLingual, QID, PRN Multivitamins and Minerals Pantoprazole [address] Tab, 40 mg= 1 tab(s), Oral, Daily Wellbutrin XL 150 mg/24 hours Tab-ER, 150 mg= 1 tab(s), Oral, Daily Allergies Effexor (Dizziness) Social History Alcohol - Denies Alcohol Use, 05/17/2022 Substance Abuse - Denies Substance Abuse, 05/17/2022 Tobacco 10 or more cigarettes (1/2 pack or more)/day in last 30 days Tobacco Use:. Never Smokeless Tobacco Use:. Cigarettes, 0.5 per day. Started age 23.0 Years., 05/17/2022 Family History Primary malignant neoplasm of colon: Sister. Immunizations Vaccine Date Status Comments influenza virus vaccine, inactivated - Not Given Patient Refuses [facility] Comment on above: Result Comment: Elec tronically Signed By: Vinod BUSBY MD\.br\Date and Time Signed: 05/17/22 14:41 EST Evaluation + Plan note 02-17-2022 Note Date & Type Note Facility 02-17-2022 Evaluation + Plan note Diagnostic Tests PendingInsulin Level Total 02/17/22 [facility] Evaluation + Plan note Note Date & Type Note Facility Evaluation + Plan note Future Appointments Appointment Date:04/29/2022 01:00:00 PM Scheduled Provider:Vinod BUSBY MD Location:[facility] Appointment Type:[address] Hospital course Narrative Note Date & Type Note Facility Hospital course Narrative No data available for this section [facility] Hospital Discharge instructions Note Date & Type Note Facility Hospital Discharge instructions No data available for this section [facility] Progress note Note Date & Type Note Facility Progress note No data available for this section [facility] Summary Purpose Family History No Family History Records FoundNo Family History Records Found Advance Directives No Advanced Directives Records FoundNo Advanced Directives Records Found Additional Source Comments Care Team (unrecognized sect ion and content) Personnel Name: Eleuterio Carranza MD Address: [address] [place] [address] Personnel Name: Eleuterio Carranza MD Address: Address: [address] [place] [address] [place] [address]- Personnel Name: Eleuterio Carranza MD Address: Address: [address] [place] [address] [place] [address]- INFORMATION SOURCE (unrecogn ized section and content) DATE CREATED AUTHOR 07/14/2022 [facility] DATE CREATED AUTHOR AUTHOR'S HERON ATION [facility]/27/2022 [facility] FOR RECORDS PERTAINING TO PATIENTS WHO ARE OR HAVE BEEN ENROLLED IN A CHEMICAL DEPENDENCY/SUBSTANCEABUSE PROGRAM, SOME INFORMATION MAY BE OMITTED. This clinical summary was aggregated from multiple sources. Caution should be exercised in using it in the provision of clinical care. This summary normalizes information from multiple sources, and as a consequence, information in this document may materially change the coding, format and clinical context of patient data. In addition, data may be omitted in some cases. CLINICAL DECISIONS SHOULD BE BASED ON THE PRIMARY CLINICAL RECORDS. [facility]. provides no warranty or guarantee of the accuracy or completeness of information in this document.
== END 2023-06-22 14:43 | disposition home or self-care (01) ==
LOC: CT 14:42
PROVIDERS: PCP Family Medicine; Visit Provider Internal Medicine Hematology & Oncology
DX: D72.829 Elevated white blood cell count, unspecified (principal); D64.9 Anemia, unspecified; R16.2 Hepatomegaly with splenomegaly, not elsewhere classified
CPT/HCPCS: 74177; Q9967

== ENCOUNTER 2023-07-11 07:24 | Outpatient (RCR) | payer OTHER, SELFPAY ==
[2023-06-20 14:04] LABS: Basophils Absolute Auto 0.1 10^3/uL (0.0-0.1); Basophils Percent Auto 0.5 % (0.2-2.0); Eosinophils Absolute Auto 0.1 10^3/uL (0.0-0.7); Eosinophils Percent Auto 0.5 % (0.9-7.0); Hematocrit 39.7 % (36.0-48.0); Hemoglobin 12.9 g/dL (12.0-16.0); Immature Granulocytes Abs Auto 0.42 10^3/uL (0.00-0.03); Immature Granulocytes Pct Auto 2.7 % (0.0-0.5); Lymphocytes Absolute Auto 2.4 10^3/uL (1.2-3.8); Lymphocytes Percent Auto 14.9 % (20.5-60.0); Mean Corpuscular HGB Conc 32.5 g/dL (29.9-35.2); Mean Corpuscular Volume 92.3 fL (81.0-99.0); Mean Platelet Volume 10.4 fL (9.5-13.5); Monocytes Absolute Auto 0.9 10^3/uL (0.3-0.8); Monocytes Percent Auto 5.4 % (1.7-12.0); Platelet Count 330 10^3/uL (150-450); Red Cell Distribution Width 14.6 % (11.0-15.0); White Blood Count 15.8 10^3/uL (4.0-11.0)
[2023-06-20 14:08] LABS: Erythrocyte Sedimentation Rate 79 mm/hr (<=30)
[2023-06-20 14:24] LABS: C Reactive Protein 1.83 mg/dL (<=0.50)
[2023-06-21 15:08] LABS: Albumin 3.2 g/dL (2.9-4.4); Alpha-1-Globulin 0.3 g/dL (0.0-0.4); Alpha-2-Globulin 0.9 g/dL (0.4-1.0); Free Kappa Lt Chains,S 14.7 mg/L (3.3-19.4); Free Lambda Lt Chains,S 10.6 mg/L (5.7-26.3); Gamma Globulin 0.4 g/dL (0.4-1.8); Immunoglobulin A, Qn, Serum 319 mg/dL (87-352); Immunoglobulin G, Qn, Serum 506 mg/dL (586-1602); Immunoglobulin M, Qn, Serum 37 mg/dL (26-217); Kappa/Lambda Ratio,S 1.39 (0.26-1.65); Protein, Total 6.1 g/dL (6.0-8.5)
== END 2023-07-12 23:59 | disposition home or self-care (01) ==
LOC: INF 07:24
PROVIDERS: PCP Family Medicine; Visit Provider Internal Medicine Hematology & Oncology
DX: D72.829 Elevated white blood cell count, unspecified (principal); D64.9 Anemia, unspecified; Z90.49 Acquired absence of other specified parts of digestive tract; Z90.710 Acquired absence of both cervix and uterus; F17.210 Nicotine dependence, cigarettes, uncomplicated
CPT/HCPCS: 36415; 82784; 83521; 83615; 84155; 84165; 85025; 85652; 86140; 86334; G0463

== ENCOUNTER 2023-07-18 07:34 | Outpatient (RCR) | payer OTHER, SELFPAY | END 2023-07-18 15:04 | disposition home or self-care (01) | LOC: INF 07:34 | PROVIDERS: PCP Family Medicine; Visit Provider Internal Medicine Hematology & Oncology | DX: D64.9 Anemia, unspecified (principal); D72.829 Elevated white blood cell count, unspecified; I10 Essential (primary) hypertension; E78.5 Hyperlipidemia, unspecified; K21.9 Gastro-esophageal reflux disease without esophagitis; Z80.0 Family history of malignant neoplasm of digestive organs; Z90.49 Acquired absence of other specified parts of digestive tract; Z90.710 Acquired absence of both cervix and uterus; F17.210 Nicotine dependence, cigarettes, uncomplicated; Z80.6 Family history of leukemia | CPT/HCPCS: G0463 ==

== ENCOUNTER 2023-10-14 10:31 | Outpatient (OUT) | payer OTHER, SELFPAY ==
--- OUTSIDE RECORDS SUMMARY | 2023-10-14 10:39 | XMS_ITS | CCD ---
Author Organization [facility] Care Team Providers Care Cook Helper Preserves Name Role Phone Eleuterio Carranza Primary Care Physician Vinod ISRAEL Attending Unavailable Hoy PROVIDER, Eleuterio Referring Unavailabl e NILL, Vinod Odonnell Attending Unavailable NILL, Vinod Odonnell Attending Unavailable NIURKA, AYAAN S Referring Unavailable NIURKA, AYAAN S Attending Unavailable NIURKA, AYAAN S Consulting Unavailable NIURKA, AYAAN S Admitting Unavailable NIURKA, AYAAN S Consulting Unavailable Hoy PROVIDER, Eleuterio Attending Unavailabl e Hoy PROVIDER, Eleuterio Admitting Unavailabl e Hoy PROVIDER, Eleuterio Referring Unavailabl e NILL, Vinod R Attending Unavailable HOY ., DR MCCLELLAN Primary Care Unavailable HOY ., DR MCCLELLAN Consulting Unavailable HOY ., DR MCCLELLAN Admitting Unavailable HOY ., DR MCCLELLAN Attending Unavailable HOY ., DR MCCLELLAN Consulting Unavailable HOY ., DR MCCLELLAN Attending Unavailable HOY ., DR MCCLELLAN Admitting Unavailable HOY ., DR MCCLELLAN Primary Care Unavailable HOY ., DR MCCLELLAN Primary Care Unavailable HOY ., DR MCCLELLAN Admjanina Unavailable [...] Unavailable HOY ., DR MCCLELLAN Attending Unavailable ROARK, DR MOISE Diaz Consulting Unavailable Allergies Allergy Classification Reported Allergen(s) Allergy Type Date of Onset Reaction(s) Facility (2 sources) venlafaxine; Translations: [venlafaxine] Drug Allergy Dizziness (finding) General Surgery [place] (1 source) venlafaxine Drug Allergy [facility] Repository Medications Current Medications Medication Drug Class(es) Dates Sig (Normalized) Sig (Original) acetaminophen 325 mg / HYDROcodone bitartrate 5 mg oral tablet (2 sources) Opioid Agonist Start: 03-06-2017 Blythe 325 mg-5 mg oral tablet See Instructions, [...] BID, # 20 tab(s), Refills(s) 0, Pharmacy: [facility] Start Date: 07/27/18 Status: Ordered Prilosec [...] 04-01-2022 Chronic Other aftercare (1 source) Other intermediate (current) drug therapy; Translations: [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 Normal [facility] Comment on above: Performed By: #### T 7, TSH, LIPID, CMP #### [facility] [address] [address] [address] Sona Cruz Microscopic examination of blood, culture Culture Observations: NO GROWTH AT 5 DAYS. Normal [facility] Comment on above: Performed By: #### T 7, TSH, LIPID, CMP #### [facility] [address] [place] [address] Dr. Sona Cruz CULTURE URINEon 09-30-2022 CULTURE URINE Culture Observations: NO GROWTH. Normal [facility] Comment on above: Performed By: #### T 7, TSH, LIPID, CMP #### [facility] [address] [place] [address] Dr. Sona Cruz UA RANDOM W/MICROSCOPICon BACTERIA NONE SEEN Normal NONE SEEN [facility] Comment on above: Performed By: #### T 7, TSH, LIPID, CMP #### [facility] [address] [place] [address] Dr. Sona Cruz Bilirubin Ql (U) Negative Normal NEGATIVE [facility] Comment on above: Performed By: #### T 7, TSH, LIPID, CMP #### [facility] [address] [place] [address] Dr. Sona Cruz CAST NONE SEEN Normal NONE SEEN [facility] Comment on above: Performed By: #### T 7, TSH, LIPID, CMP #### [facility] [address] [place] [address] Dr. Sona Cruz Clarity (U) CLEAR Normal CLEAR [facility] Comment on above: Performed By: #### T 7, TSH, LIPID, CMP #### [facility] [address] [place] [address] Dr. Sona Cruz Color (U) LT. YELLOW Normal YELLOW [facility] Comment on above: Performed By: #### T 7, TSH, LIPID, CMP #### [facility] [address] [address] [address] Sona Cruz Crystals LM Nom (Urine sed) SEEN Abnormal NONE SEEN [facility] Comment on above: Performed By: #### T 7, TSH, LIPID, CMP #### [facility] [address] [place] [address] Dr. Sona Cruz Epithelial cells LM Ql (Urine sed) FEW Abnormal NONE SEEN /RARE [facility] Comment on above: Performed By: #### T 7, TSH, LIPID, CMP #### [facility] [address] [place] [address] Dr. Sona Cruz Glucose Ql (U) Negative Normal NEGATIVE [facility] Comment on above: Performed By: #### T 7, TSH, LIPID, CMP #### [facility] [address] [place] [address] Dr. Sona Cruz Hemoglobin Ql (U) Negative Normal NEGATIVE [facility] Comment on above: Performed By: #### T 7, TSH, LIPID, CMP #### [facility] [address] [place] [address] Dr. Sona Cruz Ketones Ql (U) Negative Normal NEGATIVE [facility] Comment on above: Performed By: #### T 7, TSH, LIPID, CMP #### [facility] [address] [place] [address] Dr. Sona Cruz LEUKOCYTES Negative Normal NEGATIVE [facility] Comment on above: Performed By: #### T 7, TSH, LIPID, CMP #### [facility] [address] [place] [address] Dr. Sona Cruz MUCOUS NONE SEEN Normal NONE SEEN [facility] Comment on above: Performed By: #### T 7, TSH, LIPID, CMP #### [facility] [address] [place] [address] Dr. Sona Cruz Nitrite Ql (U) Negative Normal NEGATIVE [facility] Comment on above: Performed By: #### T 7, TSH, LIPID, CMP #### [facility] [address] [place] [address] Dr. Sona Cruz pH (U) 5.5 [pH] Normal 5-9 [facility] Comment on above: Performed By: #### T 7, TSH, LIPID, CMP #### [facility] [address] [address] [address] Sona Cruz RBC 0-2 Normal 0-2 [facility] Comment on above: Performed By: #### T 7, TSH, LIPID, CMP #### [facility] [address] [address] [address] Sona Cruz SPEC GRAVITY 1.025 Normal 1.005-<=1.025 [facility] Comment on above: Performed By: #### T 7, TSH, LIPID, CMP #### [facility] [address] [place] [address] Dr. Sona Cruz UA PROTEIN Negative Normal NEGATIVE/ TRACE [facility] Comment on above: Performed By: #### T 7, TSH, LIPID, CMP #### [facility] [address] [place] [address] Dr. Sona Cruz Urobilinogen Qn (U) 0.2 {Dayanna'U}/dL Normal 0.2 - 1. 0 [facility] Comment on above: Performed By: #### T 7, TSH, LIPID, CMP #### [facility] [address] [address] [address] Sona Cruz WBC 0-2 Abnormal NONE SEEN [facility] Comment on above: Performed By: #### T 7, TSH, LIPID, CMP #### [facility] [address] [place] [address] Dr. Sona Cruz VITAMIN B12on 09-30-2022 Cobalamin (Vitamin B12) [Mass/Vol] 383.0 pg/mL Normal 193.0-986.0 [facility] Comment on above: Performed By: #### V ITB12 #### [facility] [address] [place] [address] Dr. Sona Cruz DANIELLE-GARCIA VIRUS (EBV) AB PROFILEon 08-15-2022 EBV Ab VCA, IgG 71.8 U/mL Critically high 0.0-17.9 [facility] Comment on above: Result Comment: Nega tive <18.0 Equivocal 18.0 - 21.9 Positive >21.9 Performed By: #### T 7, TSH, LIPID, CMP #### [facility] [address] [address] [address] Sona Cruz EBV Ab VCA, IgM <36.0 Normal 0.0-35.9 [facility] Comment on above: Result Comment: Nega tive <36.0 Equivocal 36.0 - 43.9 Positive >43.9 Performed By: #### T 7, TSH, LIPID, CMP #### [facility] [address] [address] [address] Sona Cruz EBV Nuclear Antigen Ab, IgG 146.0 U/mL Critically high 0.0-17.9 [facility] Comment on above: Result Comment: Nega tive <18.0 Equivocal 18.0 - 21.9 Positive >21.9 Performed By: #### T 7, TSH, LIPID, CMP #### [facility] [address] [place] [address] Dr. Sona Cruz Interpretation: Comment Normal [facility] Comment on above: Result Comment: EBV [...] #### T 7, TSH, LIPID, CMP #### [facility] [address] [place] [address] Dr. Sona Cruz INSULINon 08-13-2022 Insulin 18.5 uIU/mL Normal 2.6-24.9 [facility] Comment on above: Performed By: #### T 7, TSH, LIPID, CMP #### [facility] [address] [place] [address] Dr. Sona Cruz CBC AUTO DIFFon 08-12-2022 BASO # 0.1 103/ul Normal 0.0-0.1 [facility] Comment on above: Performed By: #### T 7, TSH, LIPID, CMP #### [facility] [address] [place] [address] Dr. Sona Cruz Basophils/100 WBC (Bld) 0.5 % Normal 0.2-2.0 [facility] Comment on above: Performed By: #### T 7, TSH, LIPID, CMP #### [facility] [address] [place] [address] Dr. Sona Cruz EO # 0.1 103/ul Normal 0.0-0.7 [facility] Comment on above: Performed By: #### T 7, TSH, LIPID, CMP #### [facility] [address] [place] [address] Dr. Sona Cruz Eosinophils/100 WBC (Bld) 0.9 % Normal 0.9-7.0 [facility] Comment on above: Performed By: #### T 7, TSH, LIPID, CMP #### [facility] [address] [place] [address] Dr. Sona Cruz Erythrocyte distribution width (RBC) [Ratio] 14.4 % Normal 11.0-15.0 [facility] Comment on above: Performed By: #### T 7, TSH, LIPID, CMP #### [facility] [address] [place] [address] Dr. Sona Cruz Hematocrit (Bld) [Volume fraction] 41.8 % Normal 36.0-48.0 [facility] Comment on above: Performed By: #### T 7, TSH, LIPID, CMP #### [facility] [address] [place] [address] Dr. Sona Cruz Hemoglobin (Bld) [Mass/Vol] 14.0 g/dL Normal 12.0-16.0 [facility] Comment on above: Performed By: #### T 7, TSH, LIPID, CMP #### [facility] [address] [place] [address] Dr. Sona Cruz IG # 0.12 10e3/ul Critically high 0.00-0.03 [facility] Comment on above: Performed By: #### T 7, TSH, LIPID, CMP #### [facility] [address] [place] [address] Dr. Sona Cruz IG % 1.0 % Critically high 0.0-0.5 [facility] Comment on above: Performed By: #### T 7, TSH, LIPID, CMP #### [facility] [address] [place] [address] Dr. Sona Cruz LYMPH # 1.8 103/ul Normal 1.2-3.8 [facility] Comment on above: Performed By: #### T 7, TSH, LIPID, CMP #### [facility] [address] [place] [address] Dr. Sona Cruz Lymphocytes/100 WBC (Bld) 14.4 % Critically low 20.5-60.0 [facility] Comment on above: Performed By: #### T 7, TSH, LIPID, CMP #### [facility] [address] [place] [address] Dr. Sona Cruz MANUAL DIFF REQ NO Normal [facility] Comment on above: Performed By: #### T 7, TSH, LIPID, CMP #### [facility] [address] [place] [address] Dr. Sona Cruz MCH (RBC) [Entitic mass] 30.0 pg Normal 26.7-34.0 [facility] Comment on above: Performed By: #### T 7, TSH, LIPID, CMP #### [facility] [address] [place] [address] Dr. Sona Cruz MCHC (RBC) [Mass/Vol] 33.5 g/dL Normal 29.9-35.2 [facility] Comment on above: Performed By: #### T 7, TSH, LIPID, CMP #### [facility] [address] [place] [address] Dr. Sona Cruz MCV (RBC) [Entitic vol] 89.5 fL Normal 81.0-99.0 [facility] Comment on above: Performed By: #### T 7, TSH, LIPID, CMP #### [facility] [address] [place] [address] Dr. Sona Cruz MONO # 0.8 103/ul Normal 0.3-0.8 [facility] Comment on above: Performed By: #### T 7, TSH, LIPID, CMP #### [facility] [address] [place] [address] Dr. Sona Cruz Monocytes/100 WBC (Bld) 6.6 % Normal 1.7-12.0 [facility] Comment on above: Performed By: #### T 7, TSH, LIPID, CMP #### [facility] [address] [place] [address] Dr. Sona Cruz NEUT # 9.5 103/ul Critically high 1.4-6.5 [facility] Comment on above: Performed By: #### T 7, TSH, LIPID, CMP #### [facility] [address] [place] [address] Dr. Sona Cruz Neutrophils/100 WBC (Bld) 76.6 % Critically high 43.0-75.0 [facility] Comment on above: Performed By: #### T 7, TSH, LIPID, CMP #### [facility] [address] [place] [address] Dr. Sona Cruz Platelet mean volume (Bld) [Entitic vol] 10.5 fL Normal 9.5-13.5 [facility] Comment on above: Performed By: #### T 7, TSH, LIPID, CMP #### [facility] [address] [place] [address] Dr. Sona Cruz PLT 261 103/ul Normal 150-450 [facility] Comment on above: Performed By: #### T 7, TSH, LIPID, CMP #### [facility] [address] [place] [address] Dr. Sona Cruz RBC 4.67 106/ul Normal 4.20-5.40 [facility] Comment on above: Performed By: #### T 7, TSH, LIPID, CMP #### [facility] [address] [place] [address] Dr. Sona Cruz WBC 12.4 103/ul Critically high 4.0-11.0 [facility] Comment on above: Performed By: #### T 7, TSH, LIPID, CMP #### [facility] [address] [place] [address] Dr. Sona Cruz CULTURE BLOODon 08-12-2022 Microscopic examination of blood, culture Culture Observations: NO GROWTH AT 5 DAYS. Isolate 1 BC_[id number] Normal [facility] Comment on above: Performed By: #### T 7, TSH, LIPID, CMP #### [facility] [address] [place] [address] Dr. Sona Cruz Microscopic examination of blood, culture Culture Observations: NO GROWTH AT 5 DAYS. Isolate 1 BC_BA_NA Normal [facility] Comment on above: Performed By: #### T 7, TSH, LIPID, CMP #### [facility] [address] [place] [address] Dr. Sona Cruz CULTURE URINEon 08-12-2022 CULTURE URINE Culture Observations: NO GROWTH. Normal [facility] Comment on above: Performed By: #### U RCX #### [facility] [address] [place] [address] Dr. Sona Cruz FREE THYROXINE INDEX T7on FTI 3.65 Normal 1.30-4.50 [facility] Comment on above: Performed By: #### T 7, TSH, LIPID, CMP #### [facility] [address] [place] [address] Dr. Sona Cruz T3U 38.0 % Normal 30.0-39.0 [facility] Comment on above: Performed By: #### T 7, TSH, LIPID, CMP #### [facility] [address] [place] [address] Dr. Sona Cruz T4 [Mass/Vol] 9.60 ug/dL Normal 4.80-13.90 [facility] Comment on above: Performed By: #### T 7, TSH, LIPID, CMP #### [facility] [address] [place] [address] Dr. Sona rCuz GLYCOHEMOGLOBIN A1Con 2022 ADA RECOMMENDATION SEE BELOW Normal [facility] Comment on above: Result Comment: ADA RECOMMENDED LIMIT 4.0 - 6.0 ADA THERAPEUTIC TARGET < 7.0 ACTION SUGGESTED > 7.0 Performed By: #### T 7, TSH, LIPID, CMP #### [facility] [address] [address] [address] Sona Cruz Glucose [Mass/Vol] 111 mg/dL Normal [facility] Comment on above: Performed By: #### T 7, TSH, LIPID, CMP #### [facility] [address] [address] [address] Sona Cruz HbA1c (Bld) [Mass fraction] 5.5 % Normal 4.5-6.2 [facility] Comment on above: Performed By: #### T 7, TSH, LIPID, CMP #### [facility] [address] [address] [address] Sona Cruz IRONon 08-12-2022 Iron [Mass/Vol] 71.0 ug/dL Normal 50.0-170.0 [facility] Comment on above: Performed By: #### T 7, TSH, LIPID, CMP #### [facility] [address] [place] [address] Dr. Sona Cruz LIPID PROFILEon 08-12-2022 CHOL-HDL RATIO NORM SEE BELOW Normal [facility] Comment on above: Result Comment: 3.3 - 4.4 LOW RISK 4.4 - 7.1 AVERAGE RISK 7.1 - 11.0 MODERATE RISK >11.0 HIGH RISK Performed By: #### T 7, TSH, LIPID, CMP #### [facility] [address] [place] [address] Dr. Sona Cruz Cholesterol [Mass/Vol] 216 mg/dL Critically high <=200 [facility] Comment on above: Performed By: #### T 7, TSH, LIPID, CMP #### [facility] [address] [address] [address] Sona Cruz Cholesterol in HDL [Mass/Vol] 64 mg/dL Critically high 40-60 [facility] Comment on above: Performed By: #### T 7, TSH, LIPID, CMP #### [facility] [address] [address] [address] Sona Cruz Cholesterol in LDL [Mass/Vol] 132.4 mg/dL Normal [facility] Comment on above: Performed By: #### T 7, TSH, LIPID, CMP #### [facility] [address] [place] [address] Dr. Sona Cruz Cholesterol.total/Cho lesterol in HDL [Mass ratio] 3.4 {ratio} Normal [facility] Comment on above: Performed By: #### T 7, TSH, LIPID, CMP #### [facility] [address] [address] [address] Sona Cruz HDL NORMAL > or = 60 mg/dl - LOW CARDIOVASCULAR RISK <40 mg/dl - HIGH CARDIOVASCULAR RISK Normal [facility] Comment on above: Performed By: #### T 7, TSH, LIPID, CMP #### [facility] [address] [place] [address] Dr. Sona Cruz LDL CALC NORMAL SEE BELOW Normal [facility] Comment on above: Result Comment: <100 mg/dl OPTIMAL 100 - 129 mg/dl NEAR OR ABOVE OPTIMAL 130 - 159 mg/dl BORDERLINE HIGH 160 - 189 mg/dl HIGH >190 mg/dl VERY HIGH Performed By: #### T 7, TSH, LIPID, CMP #### [facility] [address] [place] [address] Dr. Sona Cruz Triglyceride [Mass/Vol] 98 mg/dL Normal <=150 [facility] Comment on above: Performed By: #### T 7, TSH, LIPID, CMP #### [facility] [address] [place] [address] Dr. Sona Cruz VLDL CALC 19.6 mg/dL Normal [facility] Comment on above: Performed By: #### T 7, TSH, LIPID, CMP #### [facility] [address] [place] [address] Dr. Sona Cruz MONOon 08-12-2022 Monocytes (Bld) [#/Vol] Negative Normal NEGATIVE [facility] Comment on above: Performed By: #### I MADDI #### [facility] [address] [place] [address] Dr. Sona Cruz PROF 14(COMP METB)on 023 Albumin [Mass/Vol] 3.9 g/dL Normal 3.4-5.0 [facility] Comment on above: Performed By: #### T 7, TSH, LIPID, CMP #### [facility] [address] [place] [address] Dr. Sona Cruz Albumin/Globulin [Mass ratio] 1.1 {ratio} Normal [facility] Comment on above: Performed By: #### T 7, TSH, LIPID, CMP #### [facility] [address] [place] [address] Dr. Sona Cruz ALP [Catalytic activity/Vol] 106 U/L Normal 46-116 [facility] Comment on above: Performed By: #### T 7, TSH, LIPID, CMP #### [facility] [address] [place] [address] Dr. Sona Cruz ALT [Catalytic activity/Vol] 22 U/L Normal 14-59 [facility] Comment on above: Performed By: #### T 7, TSH, LIPID, CMP #### [facility] [address] [place] [address] Dr. Sona Cruz Anion gap [Moles/Vol] 12.5 mmol/L Normal [facility] Comment on above: Performed By: #### T 7, TSH, LIPID, CMP #### [facility] [address] [place] [address] Dr. Sona Cruz AST [Catalytic activity/Vol] 15 U/L Normal 15-37 [facility] Comment on above: Performed By: #### T 7, TSH, LIPID, CMP #### [facility] [address] [place] [address] Dr. Sona Cruz Bilirubin [Mass/Vol] 0.5 mg/dL Normal 0.2-1.0 [facility] Comment on above: Performed By: #### T 7, TSH, LIPID, CMP #### [facility] [address] [place] [address] Dr. Sona Cruz Calcium [Mass/Vol] 9.6 mg/dL Normal 8.5-10.1 [facility] Comment on above: Performed By: #### T 7, TSH, LIPID, CMP #### [facility] [address] [place] [address] Dr. Sona Cruz Chloride [Moles/Vol] 102 mmol/L Normal 98-107 [facility] Comment on above: Performed By: #### T 7, TSH, LIPID, CMP #### [facility] [address] [address] [address] Sona Cruz CO2 [Moles/Vol] 28.3 mmol/L Normal 21.0-32.0 [facility] Comment on above: Performed By: #### T 7, TSH, LIPID, CMP #### [facility] [facility] [address] [place] [address] Dr. Sona Cruz Creatinine [Mass/Vol] 0.62 mg/dL Normal 0.55-1.02 [facility] Comment on above: Performed By: #### T 7, TSH, LIPID, CMP #### [facility] [address] [place] [address] Dr. Sona Cruz EGFR-AF SOUTH [place] >60 Normal >=60 The [facility] Comment on above: Performed By: #### T 7, TSH, LIPID, CMP #### [facility] [address] [place] [address] Dr. Sona Cruz EGFR-NON AF S[place]ESE >60 Normal >=60 [facility] Comment on above: Performed By: #### T 7, TSH, LIPID, CMP #### [facility] [address] [place] [address] Dr. Sona Cruz Globulin (S) [Mass/Vol] 3.7 g/dL Normal [facility] Comment on above: Performed By: #### T 7, TSH, LIPID, CMP #### [facility] [address] [place] [address] Dr. Sona Cruz Glucose [Mass/Vol] 106 mg/dL Normal 74-106 The [facility] Comment on above: Performed By: #### T 7, TSH, LIPID, CMP #### [facility] [address] [place] [address] Dr. Sona Cruz Potassium [Moles/Vol] 3.8 mmol/L Normal 3.5-5.1 [facility] Comment on above: Performed By: #### T 7, TSH, LIPID, CMP #### [facility] [address] [address] [address] Sona Cruz Protein [Mass/Vol] 7.6 g/dL Normal 6.4-8.2 The [facility] Comment on above: Performed By: #### T 7, TSH, LIPID, CMP #### [facility] [address] [address] [address] Sona Cruz Sodium [Moles/Vol] 139 mmol/L Normal 136-145 The [facility] Comment on above: Performed By: #### T 7, TSH, LIPID, CMP #### [facility] [address] [place] [address] Dr. Sona Cruz Urea nitrogen [Mass/Vol] 25.0 mg/dL Critically high 7.0-18.0 [facility] Comment on above: Performed By: #### T 7, TSH, LIPID, CMP #### [facility] [address] [place] [address] Dr. Sona Cruz Urea nitrogen/Creatinine [Mass ratio] 40.3 mg/mg Normal The [facility] Comment on above: Performed By: #### T 7, TSH, LIPID, CMP #### [facility] [address] [place] [address] Dr. Sona Cruz PROTIMEon 08-12-2022 INR Coag (PPP) [Relative time] {INR} Normal The [facility] Comment on above: Performed By: #### T 7, TSH, LIPID, CMP #### [facility] [address] [place] [address] Dr. Sona Cruz INR GUIDELINES SEE BELOW Normal The [facility] Comment on above: Result Comment: CAROL RED INR: 2.0 - 3.0 CONDITIONS NOT LISTED BELOW 2.5 - 3.5 FOR PROSTHETIC HEART VALVE REPLACEMENT 2.5 - 3.5 RECURRENT THROMBOSIS Performed By: #### T 7, TSH, LIPID, CMP #### [facility] [address] [place] [address] Dr. Sona Cruz PT Coag (PPP) [Time] 9.7 s Normal 9.0-11.6 [facility] Comment on above: Performed By: #### T 7, TSH, LIPID, CMP #### [facility] [address] [place] [address] Dr. Sona Cruz PTTon 08-12-2022 aPTT Coag (Bld) [Time] 27.1 s Normal 22.3-36.2 [facility] Comment on above: Performed By: #### T 7, TSH, LIPID, CMP #### [facility] [address] [place] [address] Dr. Sona Cruz SED [facility] SED RATE 47 mm/hr Critically high <=30 The [facility] Comment on above: Performed By: #### T 7, TSH, LIPID, CMP #### [facility] [address] [place] [address] Dr. Sona Cruz TSHon 08-12-2022 TSH 2.474 uIU/mL Normal 0.358-3.740 The [facility] Comment on above: Performed By: #### T 7, TSH, LIPID, CMP #### [facility] [address] [place] [address] Dr. Sona Cruz UA RANDOM W/MICROSCOPICon BACTERIA NONE SEEN Normal NONE SEEN The [facility] Comment on above: Performed By: #### T 7, TSH, LIPID, CMP #### [facility] [address] [place] [address] Dr. Sona Cruz Bilirubin Ql (U) Negative Normal NEGATIVE [facility] Comment on above: Performed By: #### T 7, TSH, LIPID, CMP #### [facility] [address] [place] [address] Dr. Sona Cruz CAST NONE SEEN Normal NONE SEEN The [facility] Comment on above: Performed By: #### T 7, TSH, LIPID, CMP #### [facility] [address] [place] [address] Dr. Sona Cruz Clarity (U) CLEAR Normal CLEAR The [facility] Comment on above: Performed By: #### T 7, TSH, LIPID, CMP #### [facility] [address] [place] [address] Dr. Sona Cruz Color (U) YELLOW Normal YELLOW The [facility] Comment on above: Performed By: #### T 7, TSH, LIPID, CMP #### [facility] [address] [address] [address] Sona Cruz Crystals LM Nom (Urine sed) NONE SEEN Normal NONE SEEN [facility] Comment on above: Performed By: #### T 7, TSH, LIPID, CMP #### [facility] [address] [address] [address] Sona Cruz Epithelial cells LM Ql (Urine sed) NONE SEEN Normal NONE SEEN /RARE The [facility] Comment on above: Performed By: #### T 7, TSH, LIPID, CMP #### [facility] [address] [address] [address] Sona Cruz Glucose Ql (U) Negative Normal NEGATIVE [facility] Comment on above: Performed By: #### T 7, TSH, LIPID, CMP #### [facility] [address] [address] [address] Sona Cruz Hemoglobin Ql (U) Negative Normal NEGATIVE [facility] Comment on above: Performed By: #### T 7, TSH, LIPID, CMP #### [facility] [address] [address] [address] Sona Cruz Ketones Ql (U) Negative Normal NEGATIVE [facility] Comment on above: Performed By: #### T 7, TSH, LIPID, CMP #### [facility] [address] [address] [address] Sona Cruz LEUKOCYTES Negative Normal NEGATIVE [facility] Comment on above: Performed By: #### T 7, TSH, LIPID, CMP #### [facility] [address] [address] [address] Sona Cruz MUCOUS NONE SEEN Normal NONE SEEN [facility] Comment on above: Performed By: #### T 7, TSH, LIPID, CMP #### [facility] [address] [address] [address] Sona Cruz Nitrite Ql (U) Negative Normal NEGATIVE [facility] Comment on above: Performed By: #### T 7, TSH, LIPID, CMP #### [facility] [address] [place] [address] Dr. Sona Cruz pH (U) 6.0 [pH] Normal 5-9 The [facility] Comment on above: Performed By: #### T 7, TSH, LIPID, CMP #### [facility] [address] [place] [address] Dr. Sona Cruz RBC 0-2 Normal 0-2 [facility] Comment on above: Performed By: #### T 7, TSH, LIPID, CMP #### [facility] [address] [place] [address] Dr. Sona Cruz SPEC GRAVITY 1.010 Normal 1.005-<=1.025 [facility] Comment on above: Performed By: #### T 7, TSH, LIPID, CMP #### [facility] [address] [place] [address] Dr. Sona Cruz UA PROTEIN Negative Normal NEGATIVE/ TRACE The [facility] Comment on above: Performed By: #### T 7, TSH, LIPID, CMP #### [facility] [address] [place] [address] Dr. Sona Cruz Urobilinogen Qn (U) 0.2 {Dayanna'U}/dL Normal 0.2 - 1. 0 [facility] Comment on above: Performed By: #### T 7, TSH, LIPID, CMP #### [facility] [address] [place] [address] Dr. Sona Cruz WBC NONE SEEN Normal NONE SEEN The [facility] Comment on above: Performed By: #### T 7, TSH, LIPID, CMP #### [facility] [address] [place] [address] Dr. Sona Cruz VITAMIN B12on 08-12-2022 Cobalamin (Vitamin B12) [Mass/Vol] 542.0 pg/mL Normal 193.0-986.0 The [facility] Comment on above: Performed By: #### T 7, TSH, LIPID, CMP #### [facility] [address] [place] [address] Dr. Sona Cruz VITAMIN D 25 OHon 08-12-2022 VIT D 25-OH 23.3 ng/mL Normal The [facility] Comment on above: Performed By: #### T 7, TSH, LIPID, CMP #### [facility] [address] [place], [place] [address] Dr. Sona Cruz VIT D RANGES SEE BELOW [facility] Comment on above: Result Comment: <20 ng/mL Vit D deficient 20 - <30 ng/mL Vit D insufficient 30 - 100 ng/mL Vit D sufficient >100 ng/mL Potential Toxicity Performed By: #### T 7, TSH, LIPID, CMP #### [facility] [address] [place], [place] [address] Dr. Sona Cruz Ambulatory Visit Summaryon 0 [...] Tubular adenoma of colon Normal [facility] General Surgery Office/Clini c Noteon [...] Not Given Patient Refuses Normal [facility] Comment on above: Result Comment: [...] history of tubular adenoma. Normal [facility] Pathology Noteon 06-24-2022 Pathology Note [id number] #1.00CD:127 Normal [facility] Outside Colonoscopyon 2022 Outside Colonoscopy [id number] #1.00CD:127 Normal [facility] Lab Reportson 06-20-2022 Lab Reports [id number] #1.00CD:127 Normal [facility] ANTISTREPTOLYSIN O AB (ASO)o n 06-18-2022 Antistreptolysin O Ab 561.7 IU/mL Critically high 0.0-200. 0 [facility] Comment on above: Performed By: #### T 7, TSH, LIPID, CMP #### [facility] [address] [place] [address] Dr. Sona Cruz INSULINon 06-18-2022 Insulin 11.2 uIU/mL Normal 2.6-24.9 The [facility] Comment on above: Performed By: #### T 7, TSH, LIPID, CMP #### [facility] [address] [place] [address] Dr. Sona Cruz CBC AUTO DIFFon 06-17-2022 BASO # 0.1 103/ul Normal 0.0-0.1 [facility] Comment on above: Performed By: #### T 7, TSH, LIPID, CMP #### [facility] [address] [place] [address] Dr. Sona Cruz Basophils/100 WBC (Bld) 0.6 % Normal 0.2-2.0 [facility] Comment on above: Performed By: #### T 7, TSH, LIPID, CMP #### [facility] [address] [place] [address] Dr. Sona Cruz EO # 0.2 103/ul Normal 0.0-0.7 [facility] Comment on above: Performed By: #### T 7, TSH, LIPID, CMP #### [facility] [address] [address] [address] Sona Cruz Eosinophils/100 WBC (Bld) 1.8 % Normal 0.9-7.0 [facility] Comment on above: Performed By: #### T 7, TSH, LIPID, CMP #### [facility] [address] [place] [address] Dr. Sona Cruz Erythrocyte distribution width (RBC) [Ratio] 15.3 % Critically high 11.0-15.0 [facility] Comment on above: Performed By: #### T 7, TSH, LIPID, CMP #### [facility] [address] [place] [address] Dr. Sona Cruz Hematocrit (Bld) [Volume fraction] 39.1 % Normal 36.0-48.0 [facility] Comment on above: Performed By: #### T 7, TSH, LIPID, CMP #### [facility] [address] [place] [address] Dr. Sona Cruz Hemoglobin (Bld) [Mass/Vol] 12.7 g/dL Normal 12.0-16.0 [facility] Comment on above: Performed By: #### T 7, TSH, LIPID, CMP #### [facility] [address] [place] [address] Dr. Sona Cruz IG # 0.15 10e3/ul Critically high 0.00-0.03 [facility] Comment on above: Performed By: #### T 7, TSH, LIPID, CMP #### [facility] [address] [address] [address] Sona Cruz IG % 1.3 % Critically high 0.0-0.5 [facility] Comment on above: Performed By: #### T 7, TSH, LIPID, CMP #### [facility] [address] [address] [address] Sona Cruz LYMPH # 2.0 103/ul Normal 1.2-3.8 The [facility] Comment on above: Performed By: #### T 7, TSH, LIPID, CMP #### [facility] [address] [place] [address] Dr. Sona Cruz Lymphocytes/100 WBC (Bld) 16.3 % Critically low 20.5-60.0 [facility] Comment on above: Performed By: #### T 7, TSH, LIPID, CMP #### [facility] [address] [place] [address] Dr. Sona Cruz MANUAL DIFF REQ NO Normal [facility] Comment on above: Performed By: #### T 7, TSH, LIPID, CMP #### [facility] [address] [place] [address] Dr. Sona Cruz MCH (RBC) [Entitic mass] 28.7 pg Normal 26.7-34.0 The [facility] Comment on above: Performed By: #### T 7, TSH, LIPID, CMP #### [facility] [address] [place] [address] Dr. Sona Cruz MCHC (RBC) [Mass/Vol] 32.5 g/dL Normal 29.9-35.2 The [facility] Comment on above: Performed By: #### T 7, TSH, LIPID, CMP #### [facility] [address] [place] [address] Dr. Sona Cruz MCV (RBC) [Entitic vol] 88.3 fL Normal 81.0-99.0 The [facility] Comment on above: Performed By: #### T 7, TSH, LIPID, CMP #### [facility] [address] [place] [address] Dr. oSna Cruz MONO # 0.8 103/ul Normal 0.3-0.8 The [facility] Comment on above: Performed By: #### T 7, TSH, LIPID, CMP #### [facility] [address] [place] [address] Dr. Sona Cruz Monocytes/100 WBC (Bld) 6.4 % Normal 1.7-12.0 The [facility] Comment on above: Performed By: #### T 7, TSH, LIPID, CMP #### [facility] [address] [address] [address] Sona Cruz NEUT # 8.8 103/ul Critically high 1.4-6.5 [facility] Comment on above: Performed By: #### T 7, TSH, LIPID, CMP #### [facility] [address] [address] [address] Sona Cruz Neutrophils/100 WBC (Bld) 73.6 % Normal 43.0-75.0 [facility] Comment on above: Performed By: #### T 7, TSH, LIPID, CMP #### [facility] [address] [address] [address] Sona Cruz Platelet mean volume (Bld) [Entitic vol] 10.3 fL Normal 9.5-13.5 [facility] Comment on above: Performed By: #### T 7, TSH, LIPID, CMP #### [facility] [address] [address] [address] Sona Cruz PLT 289 103/ul Normal 150-450 [facility] Comment on above: Performed By: #### T 7, TSH, LIPID, CMP #### [facility] [address] [address] [address] Sona Cruz RBC 4.43 106/ul Normal 4.20-5.40 [facility] Comment on above: Performed By: #### T 7, TSH, LIPID, CMP #### [facility] [address] [address] [address] Sona Cruz WBC 12.0 103/ul Critically high 4.0-11.0 [facility] Comment on above: Performed By: #### T 7, TSH, LIPID, CMP #### [facility] [address] [place] [address] Dr. Sona Cruz CULTURE URINEon 06-17-2022 CULTURE URINE Culture Observations: MODERATE GROWTH OF MIXED GENITAL DESI. NO POTENTIAL PATHOGENS SEEN. Normal The [facility] Comment on above: Performed By: #### U RCX #### [facility] [address] [place] [address] Dr. Sona Cruz Covid-19 PCR (CVDTBH)on SARS-CoV-2 (COVID-19) RNA PAVAN+probe Ql (Unsp spec) Not detected Normal NOT DETECTED The [facility] Comment on above: Result Comment: This test is not yet approved or cleared by the [place] FDA. When there are no FDA-approved or cleared tests available, and other criteria are met, FDA can make tests available under an emergency access mechanism called an Emergency Use Authorization (EUA). The EUA for this test is supported by the [place] of Health and Human Service's (HHS's) declaration [...] #### T 7, TSH, LIPID, CMP #### [facility] [address] [place] [address] Dr. Sona Cruz FREE THYROXINE INDEX T7on FTI 2.89 Normal 1.30-4.50 [facility] Comment on above: Performed By: #### I MADDI #### [facility] [address] [place] [address] Dr. Sona Cruz T3U 34.0 % Normal 30.0-39.0 The [facility] Comment on above: Performed By: #### I MADDI #### [facility] [address] [place] [address] Dr. Sona Cruz T4 [Mass/Vol] 8.50 ug/dL Normal 4.80-13.90 [facility] Comment on above: Performed By: #### I MADDI #### [facility] [address] [place] [address] Dr. Sona Cruz GLYCOHEMOGLOBIN A1Con 2022 ADA RECOMMENDATION SEE BELOW Normal The [facility] Comment on above: Result Comment: ADA RECOMMENDED LIMIT 4.0 - 6.0 ADA THERAPEUTIC TARGET < 7.0 ACTION SUGGESTED > 7.0 Performed By: #### T 7, TSH, LIPID, CMP #### [facility] [address] [address] [address] Sona Cruz Glucose [Mass/Vol] 114 mg/dL Normal The [facility] Comment on above: Performed By: #### T 7, TSH, LIPID, CMP #### [facility] [address] [address] [address] Sona Cruz HbA1c (Bld) [Mass fraction] 5.6 % Normal 4.5-6.2 [facility] Comment on above: Performed By: #### T 7, TSH, LIPID, CMP #### [facility] [address] [address] [address] Sona Cruz IRONon 06-17-2022 Iron [Mass/Vol] 50.0 ug/dL Normal 50.0-170.0 [facility] Comment on above: Performed By: #### I MADDI #### [facility] [address] [place] [address] Dr. Sona Cruz LIPID PROFILEon 06-17-2022 CHOL-HDL RATIO NORM SEE BELOW Normal [facility] Comment on above: Result Comment: 3.3 - 4.4 LOW RISK 4.4 - 7.1 AVERAGE RISK 7.1 - 11.0 MODERATE RISK >11.0 HIGH RISK Performed By: #### I MADDI #### [facility] [address] [address] [address] Sona Cruz Cholesterol [Mass/Vol] 203 mg/dL Critically high <=200 The [facility] Comment on above: Performed By: #### I MADDI #### [facility] [address] [address] [address] Sona Cruz Cholesterol in HDL [Mass/Vol] 74 mg/dL Critically high 40-60 [facility] Comment on above: Performed By: #### I MADDI #### [facility] [address] [address] [address] Sona Cruz Cholesterol in LDL [Mass/Vol] 112.4 mg/dL Normal [facility] Comment on above: Performed By: #### I MADDI #### [facility] [address] [address] [address] Sona Cruz Cholesterol.total/Cho lesterol in HDL [Mass ratio] 2.7 {ratio} Normal [facility] Comment on above: Performed By: #### I MADDI #### [facility] [address] [address] [address] Sona Cruz HDL NORMAL > or = 60 mg/dl - LOW CARDIOVASCULAR RISK <40 mg/dl - HIGH CARDIOVASCULAR RISK Normal [facility] Comment on above: Performed By: #### I MADDI #### [facility] [address] [address] [address] Sona Cruz LDL CALC NORMAL SEE BELOW Normal [facility] Comment on above: Result Comment: <100 mg/dl OPTIMAL 100 - 129 mg/dl NEAR OR ABOVE OPTIMAL 130 - 159 mg/dl BORDERLINE HIGH 160 - 189 mg/dl HIGH >190 mg/dl VERY HIGH Performed By: #### I MADDI #### [facility] [address] [address] [address] Sona Cruz Triglyceride [Mass/Vol] 83 mg/dL Normal <=150 [facility] Comment on above: Performed By: #### I MADDI #### [facility] [address] [place] [address] Dr. Sona Cruz VLDL CALC 16.6 mg/dL Normal [facility] Comment on above: Performed By: #### I MADDI #### [facility] [address] [address] [address] Sona Cruz PROF 14(COMP METB)on 023 Albumin [Mass/Vol] 3.5 g/dL Normal 3.4-5.0 [facility] Comment on above: Performed By: #### I MADDI #### [facility] [address] [place] [address] Dr. Sona Cruz Albumin/Globulin [Mass ratio] 0.9 {ratio} Normal [facility] Comment on above: Performed By: #### I MADDI #### [facility] [address] [address] [address] Sona Cruz ALP [Catalytic activity/Vol] 105 U/L Normal 46-116 [facility] Comment on above: Performed By: #### I MADDI #### [facility] [address] [place] [address] Dr. Sona Cruz ALT [Catalytic activity/Vol] 18 U/L Normal 14-59 [facility] Comment on above: Performed By: #### I MADDI #### [facility] [address] [address] [address] Sona Cruz Anion gap [Moles/Vol] 10.8 mmol/L Normal [facility] Comment on above: Performed By: #### I MADDI #### [facility] [address] [place] [address] Dr. Sona Cruz AST [Catalytic activity/Vol] 16 U/L Normal 15-37 [facility] Comment on above: Performed By: #### I MADDI #### [facility] [address] [place] [address] Dr. Sona Cruz Bilirubin [Mass/Vol] 0.4 mg/dL Normal 0.2-1.0 [facility] Comment on above: Performed By: #### I MADDI #### [facility] [address] [place] [address] Dr. Sona Cruz Calcium [Mass/Vol] 9.2 mg/dL Normal 8.5-10.1 [facility] Comment on above: Performed By: #### I MADDI #### [facility] [address] [place] [address] Dr. Sona Cruz Chloride [Moles/Vol] 101 mmol/L Normal 98-107 [facility] Comment on above: Performed By: #### I MADDI #### [facility] [address] [place] [address] Dr. Sona Cruz CO2 [Moles/Vol] 31.4 mmol/L Normal 21.0-32.0 [facility] Comment on above: Performed By: #### I MADDI #### [facility] [address] [place] [address] Dr. Sona Cruz Creatinine [Mass/Vol] 0.64 mg/dL Normal 0.55-1.02 [facility] Comment on above: Performed By: #### I MADDI #### [facility] [address] [address] [address] Sona Cruz EGFR-AF S[place] >60 Normal >=60 [facility] Comment on above: Performed By: #### I MADDI #### [facility] [address] [address] [address] Sona Cruz EGFR-NON AF [place] >60 Normal >=60 [facility] Comment on above: Performed By: #### I MADDI #### [facility] [address] [address] [address] Sona Cruz Globulin (S) [Mass/Vol] 3.9 g/dL Normal [facility] Comment on above: Performed By: #### I MADDI #### [facility] [address] [place] [address] Dr. Sona Cruz Glucose [Mass/Vol] 97 mg/dL Normal 74-106 [facility] Comment on above: Performed By: #### I MADDI #### [facility] [address] [place] [address] Dr. Sona Cruz Potassium [Moles/Vol] 4.2 mmol/L Normal 3.5-5.1 [facility] Comment on above: Performed By: #### I MADDI #### [facility] [address] [place] [address] Dr. Sona Cruz Protein [Mass/Vol] 7.4 g/dL Normal 6.4-8.2 [facility] Comment on above: Performed By: #### I MADDI #### [facility] [address] [place] [address] Dr. Sona Cruz Sodium [Moles/Vol] 139 mmol/L Normal 136-145 [facility] Comment on above: Performed By: #### I MADDI #### [facility] [address] [address] [address] Sona Cruz Urea nitrogen [Mass/Vol] 21.0 mg/dL Critically high 7.0-18.0 [facility] Comment on above: Performed By: #### I MADDI #### [facility] [address] [place] [address] Dr. Sona Cruz Urea nitrogen/Creatinine [Mass ratio] 32.8 mg/mg Normal The [facility] Comment on above: Performed By: #### I MADDI #### [facility] [address] [place] [address] Dr. Sona Cruz TSHon 06-17-2022 TSH 2.478 uIU/mL Normal 0.358-3.740 [facility] Comment on above: Performed By: #### I MADDI #### [facility] [address] [place] [address] Dr. Sona Cruz UA RANDOM W/MICROSCOPICon BACTERIA NONE SEEN Normal NONE SEEN [facility] Comment on above: Performed By: #### T 7, TSH, LIPID, CMP #### [facility] [address] [place] [address] Dr. Sona Cruz Bilirubin Ql (U) Negative Normal NEGATIVE [facility] Comment on above: Performed By: #### T 7, TSH, LIPID, CMP #### [facility] [address] [place] [address] Dr. Sona Cruz CAST NONE SEEN Normal NONE SEEN [facility] Comment on above: Performed By: #### T 7, TSH, LIPID, CMP #### [facility] [address] [place] [address] Dr. Sona Cruz Clarity (U) CLEAR Normal CLEAR The [facility] Comment on above: Performed By: #### T 7, TSH, LIPID, CMP #### [facility] [address] [place] [address] Dr. Sona Cruz Color (U) LT. YELLOW Normal YELLOW The [facility] Comment on above: Performed By: #### T 7, TSH, LIPID, CMP #### [facility] [address] [place] [address] Dr. Sona Cruz Crystals LM Nom (Urine sed) NONE SEEN Normal NONE SEEN [facility] Comment on above: Performed By: #### T 7, TSH, LIPID, CMP #### [facility] [address] [address] [address] Sona Cruz Epithelial cells LM Ql (Urine sed) FEW Abnormal NONE SEEN /RARE The [facility] Comment on above: Performed By: #### T 7, TSH, LIPID, CMP #### [facility] [address] [place] [address] Dr. Sona Cruz Glucose Ql (U) Negative Normal NEGATIVE [facility] Comment on above: Performed By: #### T 7, TSH, LIPID, CMP #### [facility] [address] [address] [address] Sona Cruz Hemoglobin Ql (U) Negative Normal NEGATIVE The [facility] Comment on above: Performed By: #### T 7, TSH, LIPID, CMP #### [facility] [address] [place] [address] Dr. Sona Cruz Ketones Ql (U) Negative Normal NEGATIVE [facility] Comment on above: Performed By: #### T 7, TSH, LIPID, CMP #### [facility] [address] [address] [address] Sona Cruz LEUKOCYTES Negative Normal NEGATIVE [facility] Comment on above: Performed By: #### T 7, TSH, LIPID, CMP #### [facility] [address] [place] [address] Dr. Sona Cruz MUCOUS NONE SEEN Normal NONE SEEN The [facility] Comment on above: Performed By: #### T 7, TSH, LIPID, CMP #### [facility] [address] [place] [address] Dr. Sona Cruz Nitrite Ql (U) Negative Normal NEGATIVE [facility] Comment on above: Performed By: #### T 7, TSH, LIPID, CMP #### [facility] [address] [address] [address] Sona Cruz pH (U) 6.0 [pH] Normal 5-9 [facility] Comment on above: Performed By: #### T 7, TSH, LIPID, CMP #### [facility] [address] [place] [address] Dr. Sona Cruz RBC 0-2 Normal 0-2 [facility] Comment on above: Performed By: #### T 7, TSH, LIPID, CMP #### [facility] [address] [address] [address] Sona Cruz SPEC GRAVITY 1.020 Normal 1.005-<=1.025 [facility] Comment on above: Performed By: #### T 7, TSH, LIPID, CMP #### [facility] [address] [address] [address] Sona Cruz UA PROTEIN Negative Normal NEGATIVE/ TRACE The [facility] Comment on above: Performed By: #### T 7, TSH, LIPID, CMP #### [facility] [address] [address] [address] Sona Cruz Urobilinogen Qn (U) 0.2 {Dayanna'U}/dL Normal 0.2 - 1. 0 [facility] Comment on above: Performed By: #### T 7, TSH, LIPID, CMP #### [facility] [address] [address] [address] Sona Cruz WBC 0-2 Abnormal NONE SEEN The [facility] Comment on above: Performed By: #### T 7, TSH, LIPID, CMP #### [facility] [address] [address] [address] Sona Cruz Pre-Certification Formon Pre-Certification Form [id number] 2#1.00CD:127 Normal [facility] Consent for Procedure/Surger yon 05-19-2022 Consent for Procedure/Surgery [id number] #1.00CD:127 Normal [facility] ANTISTREPTOLYSIN O AB (ASO)o n 05-18-2022 Antistreptolysin O Ab 866.8 IU/mL Critically high 0.0-200. 0 [facility] Comment on above: Result Comment: Resu lts confirmed on dilution. Performed By: #### T 7, TSH, LIPID, CMP #### [facility] [address] [place] [address] Dr. Sona Cruz CBC AUTO DIFFon 05-17-2022 BASO # 0.1 103/ul Normal 0.0-0.1 The [facility] Comment on above: Performed By: #### T 7, TSH, LIPID, CMP #### [facility] [address] [place] [address] Dr. Sona Cruz Basophils/100 WBC (Bld) 0.6 % Normal 0.2-2.0 The [facility] Comment on above: Performed By: #### T 7, TSH, LIPID, CMP #### [facility] [address] [place] [address] Dr. Sona Cruz EO # 0.2 103/ul Normal 0.0-0.7 The [facility] Comment on above: Performed By: #### T 7, TSH, LIPID, CMP #### [facility] [address] [place] [address] Dr. Sona Cruz Eosinophils/100 WBC (Bld) 1.8 % Normal 0.9-7.0 [facility] Comment on above: Performed By: #### T 7, TSH, LIPID, CMP #### [facility] [address] [place] [address] Dr. Sona Cruz Erythrocyte distribution width (RBC) [Ratio] 14.2 % Normal 11.0-15.0 [facility] Comment on above: Performed By: #### T 7, TSH, LIPID, CMP #### [facility] [address] [place] [address] Dr. Sona Cruz Hematocrit (Bld) [Volume fraction] 44.7 % Normal 36.0-48.0 [facility] Comment on above: Performed By: #### T 7, TSH, LIPID, CMP #### [facility] [address] [place] [address] Dr. Sona Cruz Hemoglobin (Bld) [Mass/Vol] 14.4 g/dL Normal 12.0-16.0 [facility] Comment on above: Performed By: #### T 7, TSH, LIPID, CMP #### [facility] [address] [place] [address] Dr. Sona Cruz IG # 0.09 10e3/ul Critically high 0.00-0.03 [facility] Comment on above: Performed By: #### T 7, TSH, LIPID, CMP #### [facility] [address] [place] [address] Dr. Sona Cruz IG % 0.7 % Critically high 0.0-0.5 [facility] Comment on above: Performed By: #### T 7, TSH, LIPID, CMP #### [facility] [address] [place] [address] Dr. Sona Cruz LYMPH # 2.2 103/ul Normal 1.2-3.8 [facility] Comment on above: Performed By: #### T 7, TSH, LIPID, CMP #### [facility] [address] [place] [address] Dr. Sona Cruz Lymphocytes/100 WBC (Bld) 17.2 % Critically low 20.5-60.0 [facility] Comment on above: Performed By: #### T 7, TSH, LIPID, CMP #### [facility] [address] [place] [address] Dr. Sona Cruz MANUAL DIFF REQ NO Normal [facility] Comment on above: Performed By: #### T 7, TSH, LIPID, CMP #### [facility] [address] [place] [address] Dr. Sona Cruz MCH (RBC) [Entitic mass] 28.7 pg Normal 26.7-34.0 [facility] Comment on above: Performed By: #### T 7, TSH, LIPID, CMP #### [facility] [address] [place] [address] Dr. Sona Cruz MCHC (RBC) [Mass/Vol] 32.2 g/dL Normal 29.9-35.2 [facility] Comment on above: Performed By: #### T 7, TSH, LIPID, CMP #### [facility] [address] [place] [address] Dr. Sona Cruz MCV (RBC) [Entitic vol] 89.0 fL Normal 81.0-99.0 [facility] Comment on above: Performed By: #### T 7, TSH, LIPID, CMP #### [facility] [address] [address] [address] Sona Cruz MONO # 0.9 103/ul Critically high 0.3-0.8 [facility] Comment on above: Performed By: #### T 7, TSH, LIPID, CMP #### [facility] [address] [place] [address] Dr. Sona Cruz Monocytes/100 WBC (Bld) 6.5 % Normal 1.7-12.0 The [facility] Comment on above: Performed By: #### T 7, TSH, LIPID, CMP #### [facility] [address] [place] [address] Dr. Sona Cruz NEUT # 9.5 103/ul Critically high 1.4-6.5 [facility] Comment on above: Performed By: #### T 7, TSH, LIPID, CMP #### [facility] [address] [place] [address] Dr. Sona Cruz Neutrophils/100 WBC (Bld) 73.2 % Normal 43.0-75.0 The [facility] Comment on above: Performed By: #### T 7, TSH, LIPID, CMP #### [facility] [address] [place] [address] Dr. Sona Cruz Platelet mean volume (Bld) [Entitic vol] 10.5 fL Normal 9.5-13.5 The [facility] Comment on above: Performed By: #### T 7, TSH, LIPID, CMP #### [facility] [address] [place] [address] Dr. Sona Cruz PLT 319 103/ul Normal 150-450 [facility] Comment on above: Performed By: #### T 7, TSH, LIPID, CMP #### [facility] [address] [place] [address] Dr. Sona Cruz RBC 5.02 106/ul Normal 4.20-5.40 The [facility] Comment on above: Performed By: #### T 7, TSH, LIPID, CMP #### [facility] [address] [place] [address] Dr. Sona Cruz WBC 13.0 103/ul Critically high 4.0-11.0 The [facility] Comment on above: Performed By: #### T 7, TSH, LIPID, CMP #### [facility] [address] [place] [address] Dr. Sona Cruz CRPon 05-17-2022 CRP [Mass/Vol] mg/L Normal <=1.0 [facility] Comment on above: Performed By: #### T 7, TSH, LIPID, CMP #### [facility] [address] [place] [address] Dr. Sona Cruz CULTURE BLOODon 05-17-2022 Microscopic examination of blood, culture Culture Observations: NO GROWTH AT 5 DAYS. Normal [facility] Comment on above: Performed By: #### B LDCX2 #### [facility] [address] [place] [address] Dr. Sona Cruz Microscopic examination of blood, culture Culture Observations: NO GROWTH AT 5 DAYS. Normal [facility] Comment on above: Performed By: #### B LDCX1 #### [facility] [address] [place] [address] Dr. Sona Cruz [facility] 54 mm/hr Critically high <=30 [facility] Comment on above: Performed By: #### T 7, TSH, LIPID, CMP #### [facility] [address] [place] [address] Dr. Sona Cruz MRI LSPINE WO CONon [...] by: YUNIOR ROBBINS Date: 2022-05-06 15:01 Normal [facility] MG MAMM SCREEN 3D CESAR CADon 04-15-2022 MG MAMM SCREEN 3D CESAR CAD Patient: SYLVIE ALTAMIRANO Exam Date: 04/15/2022 : 1970 Gender:F Ordering : DR ELEUTERIO CARRANZA . Admission #: [id number] Family : Order #: [id number] CLICK HERE TO VIEW EXAM RADIOLOGY REPORT PROCEDURE: MAMMOGRAM SCREENING 3D BILATERAL CAD COMPARISON: None. INDICATIONS: Screening mammography Calculator Name NCI Breast Cancer Risk Assessment Tool 5 Year Breast Cancer Risk 0.80% Lifetime Breast Cancer Risk 7.10% Personal Breast Cancer No Personal Ovarian Cancer No Treatments None Family Cancers Sister with colon cancer at age 34. LOCATION: The [facility] BREAST COMPOSITION: Almost entirely fatty. FINDINGS: DIAGNOSTIC [...] Moise Hickey MD on 04/15/2022 at 14:17 [facility] ECHOCARDIO M/2D COMPLETEon 1 ECHOCARDIO M/2D COMPLETE Patient: SYLVIE ALTAMIRANO Exam Date: 04/08/2022 : 1970 Gender:F Ordering : DR ELEUTERIO CARRANZA . Admission #: [id number] Family : Order #: [id number] CLICK HERE TO VIEW EXAM ECHOCARDIOGRAM REPORT [...] Lazaro M.D. on 04/13/2022 at 11:32 Normal [facility] SLE PROFILE Aon 04-01-2022 Anti-DNA (DS) Ab Qn 1 IU/mL Normal 0-9 [facility] Comment on above: Result Comment: Nega tive <5 Equivocal 5 - 9 Positive >9 Performed By: #### T 7, TSH, LIPID, CMP #### [facility] [address] [place] [address] Dr. Sona Cruz Antichromatin Antibodies <0.2 Normal 0.0-0.9 [facility] Comment on above: Performed By: #### T 7, TSH, LIPID, CMP #### [facility] [address] [address] [address] Sona Cruz RA Latex Turbid. <10.0 Normal <14.0 [facility] Comment on above: Performed By: #### T 7, TSH, LIPID, CMP #### [facility] [address] [address] [address] Sona Cruz PROPOSAL WRITER Antibodies 0.2 AI Normal 0.0-0.9 [facility] Comment on above: Performed By: #### T 7, TSH, LIPID, CMP #### [facility] [address] [address] [address] Sona Cruz Sjogren's Anti-SS-A <0.2 Normal 0.0-0.9 [facility] Comment on above: Performed By: #### T 7, TSH, LIPID, CMP #### [facility] [address] [address] [address] Sona Pierceogrольга'sana Anti-SS-B <0.2 Normal 0.0-0.9 [facility] Comment on above: Performed By: #### T 7, TSH, LIPID, CMP #### [facility] [address] [address] [address] Sona Cruz Judd Antibodies <0.2 Normal 0.0-0.9 [facility] Comment on above: Performed By: #### T 7, TSH, LIPID, CMP #### [facility] [address] [address] [address] Sona Cruz REGGIE by IFAon 03-31-2022 Antinuclear Antibodies, IFA Negative Normal [facility] Comment on above: Result Comment: Nega tive <1:80 Borderline 1:80 Positive >1:80 ICAP nomenclature: AC-0 For more information about Hep-2 cell patterns use ANApatterns.org, the official website for the International Consensus on Antinuclear Antibody (REGGIE) Patterns (ICAP). Performed By: #### T 7, TSH, LIPID, CMP #### [facility] [address] [address] [address] Sona Cruz Physician Referralon 022 Physician Referral [id number] #1.00CD:127 Normal [facility] RHEUMATOID FACTORon 03-31-20 RA Latex Turbid. <10.0 Normal <14.0 [facility] Comment on above: Performed By: #### T 7, TSH, LIPID, CMP #### [facility] [address] [place] [address] Dr. Sona Cruz ANTISTREPTOLYSIN O AB (ASO)o n 03-30-2022 Antistreptolysin O Ab 1118.1 IU/mL Critically high 0.0-200 .0 [facility] Comment on above: Result Comment: Resu lts confirmed on dilution. Performed By: #### T 7, TSH, LIPID, CMP #### [facility] [address] [place] [address] Dr. Sona Cruz DANIELLE-GARCIA VIRUS (EBV) AB PROFILEon 03-30-2022 EBV Ab VCA, IgG 57.9 U/mL Critically high 0.0-17.9 [facility] Comment on above: Result Comment: Nega tive <18.0 Equivocal 18.0 - 21.9 Positive >21.9 Performed By: #### T 7, TSH, LIPID, CMP #### [facility] [address] [place] [address] Dr. Sona Cruz EBV Ab VCA, IgM <36.0 Normal 0.0-35.9 [facility] Comment on above: Result Comment: Nega tive <36.0 Equivocal 36.0 - 43.9 Positive >43.9 Performed By: #### T 7, TSH, LIPID, CMP #### [facility] [address] [address] [address] Sona Cruz EBV Nuclear Antigen Ab, IgG 135.0 U/mL Critically high 0.0-17.9 [facility] Comment on above: Result Comment: Nega tive <18.0 Equivocal 18.0 - 21.9 Positive >21.9 Performed By: #### T 7, TSH, LIPID, CMP #### [facility] [address] [place] [address] Dr. Sona Cruz Interpretation: Comment Normal [facility] Comment on above: Result Comment: EBV [...] #### T 7, TSH, LIPID, CMP #### [facility] [address] [address] [address] Sona Cruz XR KNEE CESAR 4V [...] by: YUNIOR ROBBINS Date: 2022-03-30 07:05 Normal [facility] XR LSPINE MIN 4 VIEWSon 03-12 [...] by: YUNIOR ROBBINS Date: 2022-03-30 07:13 Normal [facility] CRPon 03-29-2022 CRP 1.4 mg/dL Critically high <=1.0 [facility] Comment on above: Performed By: #### T 7, TSH, LIPID, CMP #### [facility] [address] [place] [address] Dr. Sona Cruz FREE THYROXINE INDEX T7on FTI 2.62 Normal 1.30-4.50 [facility] Comment on above: Performed By: #### T 7, TSH, LIPID, CMP #### [facility] [address] [place] [address] Dr. Sona Cruz T3U 34.0 % Normal 30.0-39.0 [facility] Comment on above: Performed By: #### T 7, TSH, LIPID, CMP #### [facility] [address] [place] [address] Dr. Sona Cruz T4 [Mass/Vol] 7.70 ug/dL Normal 4.80-13.90 The [facility] Comment on above: Performed By: #### T 7, TSH, LIPID, CMP #### [facility] [address] [place] [address] Dr. Sona Cruz [facility] SED RATE 48 mm/hr Critically high <=30 The [facility] Comment on above: Performed By: #### T 7, TSH, LIPID, CMP #### [facility] [address] [place] [address] Dr. Sona Cruz TSHon 03-29-2022 TSH 2.577 uIU/mL Normal 0.358-3.740 [facility] Comment on above: Performed By: #### T 7, TSH, LIPID, CMP #### [facility] [address] [place] [address] Dr. Sona Cruz URIC ACID SERUMon 03-29-2022 Urate [Mass/Vol] 4.2 mg/dL Normal 2.6-6.0 [facility] Comment on above: Performed By: #### T 7, TSH, LIPID, CMP #### [facility] [facility] [address] [place] [address] Dr. Sona Cruz Coding Summary.on 02-18-2022 Coding Summary. CD:[id number] Gh0bWw+PGhlYWQ+PE1FV OMgG96yiZWqkA1SV5jHT Z1VCQLEBIUJFM1SVV0ht UB0IKytA6EulpDz UxmpsWUtGF90MUq4DYF7 bOliHIwtyT4puJFuT3y2 RgAfXH00iZ20FAqoRCEn DfP1ZmVanvkusFMw K6fiQkWilPVyXkd+PHRh YmxlIHdpZHRoPScxMDAl IfOkaIpkSO8pXu6tCVLb LWNvbGxhcHNlOiBj d2xpLTLiVKqzRW6qnGui R9GedGZ4JIToi1r1Fl44 dHI+EVRtHIN2yFtoCVbe d896JiMoo5wxIKL8 mMSsOFuaZGJ9X25ec1L8 QKGnPRGgOGQ6gOS8uF3d zHebopvzJ6TmpRIuBoM0 GXA0eTRktB2kbVyn wvcsgQ8sVzy+J09SPI3A PVZQDX2MNtc7V4ItIxes dHI+TP79UGYhEJ77oFMy eUTrc4lstOt4QyPv BMIiPPK1tLbyOGwst2Ly XBQpV43ioXNpm6B8SNUa pOqmqMZgPiDitLF1eO0g HStkyudnq9gcifhy Utzrc8wpfc11lG78D46i EAtmKYCdWDC1MIIjXERg aExeii9raQ9lAn4+IDxj r0ooj9tpfJw4QgCl RWMxdxDqjWylLQH8j2Ns Mx73Y9VyyLims7WyThc4 ry69qYTxp9T6qJS5GDve OPLxwG7cHZlrRvU9 QECdEiIswE13zJLxTUqo Js8gnEumgLyvHC0fMHNf phiiGQHfvF7zERZffCYj mEopLU3kAYPxzakm t837MaQjEEY6TVRhfFQl S5NnpT4vDsOxADLnQUNs I2ZadBQqJIdwH412PZau IzT3TRQuwxMjI4Wq FSXgqOuhEoC3p1Q1Wy8G l9QlbqweXWM0PRxtNHI8 LhQ1ChKvUpZ3K6EaWvm2 OHMhcUzlTH7fC2Mh JKQkhtuoqinqqXQ3IJGj KBImwC60iESqWBbpFf6v j9R4p052ZYObBWRcbR56 Ki8dqXxzTDLksGGW kA6thsnop1egookkSdQt ORSbGRb2XBi2WXLagRei WwHuIQO9JiR4ZMS8lXDu sN0exVpbmgzqxJ7g Oyc+V51qoG3yMPV7EQQ9 gowrYDYlyyVvGJ96QH84 K1CfGsmllVLmxRT+PGRp caHgiIyiGQ9iOlWz e4gqb5HlGMofH3FtVZTl XZpqZyt6KLLeNER2vZT9 jJ9rAUXfJZagl6X3hEQ4 G9DgulEgvh4bs3rs WOIgYKmvH34vkBZpe1N8 CRIgyVX3JCFbcUnxItNk aD54Jxg+MSInnLtsl3Fk Cwnuz6oqc0oqrNv6 IjMwJSIgdmFsaWduPSJ0 z3DiDs41K11qPEqjLUDn PPWpIRZtCVWhrSlpwb4r jP5gVx5+PGNvbCB3 uXP2jD7xUEFaFzT9GTql Q590KbIthGQrPtoen1pb n7nzsZs2JmDwJBUzhhEu aHoiITD7a5NrQv34 T08cSMivYZWmOHGaEOHw ZZBreOyhmf8bfB3yAl7+ FU0gn4zmrh60fA88fDD+ YRZwYQH6lGksVWhr FCTalY9hBWqkBlA6TAFj TxTehS44bFAvTIttWi5g pKozmRcqAM7rLQZexzaz x619JmSbp6qfMRGz sHTvXImfWCV4H81cm4C7 OXFwYQAlJRT2qLT6wC3h bGlnbjogbGVmdDsgdmVy vOtcPFdxYSvjP753 IHRvcDsnPlBhdGllbnQg LkDbXGj6E5VrDvd5WVVc wEusRN3tePWhLUenXl5r aHfrqMloYM0aMWSb uuyvg587ZxOqb6ovQTWh yJFyINloEOT5B59sa2V7 HUKxBMKqXJH0dDQ9oU7m bGlnbjogbGVmdDsg tvXtqBxfCSxeUOtkX093 IHRvcDsnPkJpcnRoIERh cEP3VN73AV35sFTbc8I8 kRE8W6ZvDXIkyohk qibpmGX6PVZqXDCeyT37 Sa8pvHkdVo2zNIUwJBI9 PRRqtOVuQ8WqzQ2sRbBd RHIiHFSbZ1DnzIZg FEtvR343MUeeHyB8EUDe iwSeV2ZfZUEcdUfsOqN6 x5B9Ny4VK8C1TV03PK09 yEEol2R7cOW3G3Aw UAWfndolsasxcNE8KMTj QFAamA32Ku0hiTusJq1l XFMiHVI5QSTvnUKfH8Zs cL9fXyGwIMEhCYJj Q2JqfCIvCQesT123MJqo LcP6NJZtrvTdO8JnCGTw lTksZbA1a0P0Nt6GDEj0 HA00WD93oDEkq9M3 xDG7S9GsBMQmxxwewnja jHN3NRIeMTPeqB53Fw3s lIdzDh3oUMVdAUQ8CBEn uHQfT3WsgV3cEkKs QBXlLWCfY6VebYWzRPtx N140OIhaBvY6GGXjtkYk N6DeVEHksUycYwE7g5Y3 Yp8RYDIzHP65JRF8 jZO6BM16JE59K1NsDrem dGFibGU+PHRhYmxlIHdp ZHRoPScxMDAlJyBzdHls UT7aRs5jGUOdWVGh cOykkVNoVaZlj4ypFGAu NSniBA3muDexN5UszXD0 UBBdu9l7Xb03D66cY7Pr dXA+ZICjwLL2dWX9 lP5zWlJvJeX4XZozS538 YbGpeAFnUatat8blf8oi sUx2LbQ4XGRspnNpfNzj EQG0c2TqVz77U75k IHdpZHRoPSIxNSUiIHZh eForpo7fcG9tCf6+PGNv cZO3qKA1rB9gSnWfTpO7 MHycT553UtKamPJv Vxgst6mkc6ihdQd3MuBq XIOtubZyhRjbYFS5o2Fc Ft42A2MfbUjem7HbWhw1 lp49nNLzo6R4tTX0 N6XdJJClujtfqLJbiMjr YU3hYDLnsywwHDOdiP5h JRQeY9x4UkDzAxY2ZAho Q6NopxF3LQNcpEUq HFohFXV1N80fr3L8EMUo FVXxTYO6tYM9mC9veErl bjogbGVmdDsgdmVydGlj SWarJIvzO121TMFn wNlkTQEvrQ6jJZJbmDFg qTqsMX2lPKFuugvqQfnT RXbBBI4OHPZJYxYOYJQl TDwvdGQ+PHRkIHN0 lKhmJGltWQJvjX6zAATx D3o1XfJiMlO9UXusU8Kg PJVezkfiZz82hP2jUgGo LvO2MSmlD2FhhaB9 GNVabLRjUOsoYAV6K21v u3N9ZPEoMPEoMUJ3bZD2 cH4qpIpepujlrFKzfVjx dmVydGljYWwtYWxp M760ZOYznOusMhKsMwDz WqJ8ZhJ4A4YbQnr4KDDt qDjiOK6zpMXjNXfhWc9g aWasjXhgCB8pJIBg xobzDFFycC3iMWLkiYUd nNgtGV8bXOVohpmne200 SnQdHVW6WTGwmLIjU1Hu uI6qTiWvYSQmTBUs F5DxpHStCGmeG755EOfw QcN7PFYczpJdS4BaSQVd gYkkZpH8n4I6Ft64IYOQ ZWFyczwvdGQ+PHRk YQU7dHxcILxzCRCapN4s BIYcE2v6TcYtCgO7KWdg K4IcBKVgoskjJd17qV2u DdXkLwQ0NGtfY8Pg pcR3NJPhbPWhCWzzNBI2 A71ez0Q1ZXYaZZOyOMT3 eSK7pM7ifNfjckmdfCDx dDsgdmVydGljYWwt YBdvU119VSAjhAlkZjXt bWFsZTwvdGQ+PHRkIHN0 kHhbWWcrLRWjmD3fWMVh G8h2UzFnFyT6KRdg Q8DhYXPkuwcgPj95cQ6e SjEgJmC4WQlvT8PxhoR4 YDYtoKApPCfmKPV0E54t y4V8VHQuTADwUGE3 fMC7sX4owMcnenufzVPc dDsgdmVydGljYWwtYWxp H170TMRaxLekZv36pDLq hCjoujB0Q1ZtDshl dHI+AP61FUSrVE12aDXd tRAbw5ubfQr6QuSsJHRv GMU5rVtvDGdqf7EcQQIe H14zzBIul1Q1PIBd cVcolUBgGfQwqMK0cW2r QAfxarjll3nqonkxAffe q1mvrk84mV76H92xDNmf ZHRoPSIzMCUiIHZh nAhmsp9kmW1tUw5+PGNv zRR2uCG6bT9bWaUbAwC2 QSrtZ670NhWvjEWiOosq b2nlz3yshWq5PqQd XBEjtfPcdIydLMQ4c8Xk Zy37E21rPErmTXNmRJDc YPCyMUTbhVnzzw2buO6j Ii8+OQ3va6fwtl74 iJ79jCV+VLCkQXE1dNrn TXdhRWLfjM6zKIgzZdZ9 WFZyDsAguW07dBQuPOfl Uo3qgKzyxCobKV5q IXItmupor038CiVah8ut SQWlwGXqWXumOHU9M86c t4J4ZQRpOFJaDFP8hNB9 uY2ukBlemckttCBs dDsgdmVydGljYWwtYWxp E360BAMojRcfVbImkLDh Q9idnoCUQY9mEsbzfLF+ QJLxUSW3kVtqMLlo SPVyxY1kUKHwI9m1IgGe UhB2ZEuaR5IkwlR6KVDu mCPqBWInsDNCeI8swzdj f9udtazrAmOkVGJp GTp1ACg7WRSomQpiSfDv RLE0YgO0ESU5fTYtdM8u nQrtmyhkiM1eLee+RklO OjwvdGQ+PHRkIHN0 cEkcEVvtSBHygV7pIAUc Y5n6OhOjNiQ0HLbnG7Ha phB1HAAaeWGnWUKfeVFJ zN3fjvvkb1kxrsae RuVbWDEeFOs2GJt5TEPp jLrgKhBeIIQ5OnP0TSD1 cQVreR5htNzbjptcqX4w Oyc+TVJOOjwvdGQ+ KRGeYDI4gRxmSQynOZGz dS4aJUBxZ3x7AyHjMsL2 GBprH0YdudK0COYlhCBf VSAryXYCxK4ofxob e7ahuftoHgCsDUOfXMf6 BIl7MPMcwYjyRdUyQVS8 XyS0JLP2nQJxaO6yfBkf gaiyuQ8vGeq+UGF5 JZZ9YY22NY31V2XyAngq dGFibGU+PHRhYmxlIHdp ZHRoPScxMDAlJyBzdHls OL8lXm8vXBDeELRa bGxh (more content not included)... Normal [facility] Insulin Lvlon 02-18-2022 Insulin Qn 10.2 u[IU]/mL Invalid Interpretation Code 2.6-24.9 [facility] Comment on above: Result Comment: Perf ormed at: [facility] [address] [id number] PhD Bonilla Maloney Performed By: #### 7 [id number], 86640484, 2334295, 9801815, 8294599, 9171176, 9171328, 4032088, 14952055, 2340076, 98200387, 339537182 ####[facility] [address] [place] [address] Auto Diffon 02-17-2022 Basophils/100 WBC (Bld) 0.4 % Normal 0.0-2.0 [facility] Comment on above: Order Comment: Order Added by Discern Expert. Performed By: #### 7 [id number], 74152930, 6663694, 3914111, 3751478, 5373664, 1225680, 4843735, 99171541, 4933649, 90578814, 328128448 ####[facility] [address] [place] [address] Basophils/Leukocytes Auto (Bld) [Pure # fraction] 0.0 E9/L Normal 0.0-0.2 [facility] Comment on above: Order Comment: Order Added by Discern Expert. Performed By: #### 7 11531189, 76921504, 3895974, 8760354, 0029492, 8685939, 2049355, 2868158, 40194791, 6394383, 57791155, 763417139 ####[facility] [address] [place] [address] Eosinophils/100 WBC (Bld) 2.8 % Normal 0.0-8.0 [facility] Comment on above: Order Comment: Order Added by Discern Expert. Performed By: #### 7 02742403, 85867645, 0946268, 9349889, 2403174, 7065377, 7875486, 1663319, 40785175, 3954273, 37315256, 900599961 ####[facility] [address] [place] [address] Eosinophils/Leukocyte s Auto (Bld) [Pure # fraction] 0.2 E9/L Normal 0.0-0.5 [facility] Comment on above: Order Comment: Order Added by Discern Expert. Performed By: #### 7 [id number], 07619555, 8152347, 6832289, 8598340, 2989896, 1038476, 3837242, 29479164, 0301318, 65501149, 455643453 ####[address] [place] [address] Lymphocytes/100 WBC (Bld) 19.0 % Normal 14.0-50.0 [facility] Comment on above: Order Comment: Order Added by Discern Expert. Performed By: #### 7 11752962, 19422928, 1962069, 5105767, 0436437, 7675914, 0314544, 5070567, 77631695, 5966799, 65613911, 904099918 ####[facility] [address] [place] [address] Lymphocytes/Leukocyte s Auto (Bld) [Pure # fraction] 1.5 E9/L Normal 1.0-4.0 [facility] Comment on above: Order Comment: Order Added by Discern Expert. Performed By: #### 7 31333195, 32646350, 6645125, 0316077, 6248244, 0641527, 9475609, 7440501, 56658579, 2540996, 41782924, 878126746 ####[facility] [address] [place] [address] Monocytes/100 WBC (Bld) 7.3 % Normal 4.0-14.0 [facility] Comment on above: Order Comment: Order Added by Discern Expert. Performed By: #### 7 29023238, 74590333, 8529981, 3460857, 0322124, 5240630, 5197235, 2993789, 97125094, 3660422, 30907071, 584933529 ####[facility] [address] [place] [address] Monocytes/Leukocytes Auto (Bld) [Pure # fraction] 0.6 E9/L Normal 0.2-1.0 [facility] Comment on above: Order Comment: Order Added by Discern Expert. Performed By: #### 7 54149795, 41514226, 8050563, 1897529, 2428315, 1155992, 4950344, 2020837, 25858919, 0246593, 45695330, 751077022 ####[address] [place] [address] Neutrophils/100 WBC (Bld) 70.5 % Normal 36.0-75.0 [facility] Comment on above: Order Comment: Order Added by Discern Expert. Performed By: #### 7 92077525, 59658780, 6761411, 4139120, 8085367, 0292274, 1872914, 9696349, 62789882, 6978740, 43834885, 094753572 ####[facility] [address] [place] [address] Neutrophils/Leukocyte s Auto (Bld) [Pure # fraction] 5.7 E9/L Normal 2.0-7.5 [facility] Comment on above: Order Comment: Order Added by Discern Expert. Performed By: #### 7 46861412, 94767144, 7249403, 4076052, 3698884, 3923583, 2384718, 3737175, 52368896, 4752322, 48105424, 265513189 ####[facility] [address] [place] [address] CBC w/ Auto Diffon 2 Erythrocyte distribution width (RBC) [Ratio] 15.3 % High 10.9-14.2 [facility] Comment on above: Performed By: #### 7 04094618, 42851148, 1896593, 7635753, 5059515, 9296666, 9896009, 2121278, 49276946, 7231068, 01010651, 116541052 ####[facility] [address] [place] [address] Hematocrit (Bld) [Volume fraction] 36.7 % Normal 34.0-46.0 [facility] Comment on above: Performed By: #### 7 24020732, 35533625, 9976209, 9628559, 5420416, 9279182, 7844806, 7798477, 76642565, 4011320, 04675103, 946349733 ####[facility] [address] [place] [address] Hemoglobin (Bld) [Mass/Vol] 12.2 g/dL Normal 12.0-16.0 [facility] Comment on above: Performed By: #### 7 74828079, 82185795, 2103098, 0934705, 6554409, 2836309, 4784225, 2317081, 93790585, 4252379, 70920533, 970375449 ####[facility] [address] [place] [address] MCH (RBC) [Entitic mass] 28.9 pg Normal 27.0-34.0 [facility] Comment on above: Performed By: #### 7 93911169, 90696787, 6944642, 5426534, 9847879, 5899741, 3358118, 5546547, 39722726, 9930867, 09925409, 252538508 ####[address] [place] [address] MCHC (RBC) [Mass/Vol] 33.4 g/dL Normal 31.4-36.0 [facility] Comment on above: Performed By: #### 7 47118329, 11142938, 4248432, 3247050, 7381978, 1745791, 0327317, 2997877, 48089868, 0864730, 80100590, 253940284 ####[address] [place] [address] MCV (RBC) [Entitic vol] 86.7 fL Normal 80.0-100.0 [facility] Comment on above: Performed By: #### 7 34928554, 39437147, 6064372, 1110718, 9231719, 5653894, 1345308, 6076007, 40416797, 5544114, 69390081, 666997111 ####[address] [address] Platelet mean volume (Bld) [Entitic vol] 9.0 fL Normal 6.4-10.8 [facility] Comment on above: Performed By: #### 7 91734935, 63655010, 4885580, 2502873, 6220143, 1680830, 5284700, 9643982, 81654256, 6413993, 54450097, 590965539 ####[address] [address] Platelets (Bld) [#/Vol] 223.0 E9/L Normal 150.0-500.0 [facility] Comment on above: Performed By: #### 7 44861826, 67251636, 3870176, 0164378, 5561080, 7815993, 5115522, 6010490, 72965942, 9488143, 77484052, 414903915 ####[address] [place] [address] RBC (Bld) [#/Vol] 4.2 E12/L Low 4.3-5.9 [facility] Comment on above: Performed By: #### 7 03045336, 98363160, 1024232, 5056738, 3989025, 2940095, 2138201, 7828314, 22994847, 4299918, 36661041, 022276430 ####[facility] [address] [place] [address] WBC corrected for nucl RBC Auto (Bld) [#/Vol] 8.1 E9/L Normal 4.0-11.0 [facility] Comment on above: Performed By: #### 7 72849735, 40605045, 9853175, 2751632, 7880922, 3609336, 4161686, 4477673, 66861542, 2691737, 60804916, 606281859 ####[facility] [address] [place] [address] CHEMISTRYOrdered By: SYSTEM SYSTEM on 02-17-2022 25-hydroxyvitamin [...] 8.4 ug/dL Normal 4.6 - 9.1 mcg/dL [facility] Remisol T4 uptake [Mass/Vol] 46.4 % Normal 32.0 - 48.4 % [facility] Remisol Triglyceride [Mass/Vol] 127 mg/dL Normal <=149mg/dL [facility] TSH Qn 3.83 m[IU]/L Normal 0.34 - 5.60 mcIU/mL [facility] Urea nitrogen [Mass/Vol] 19 mg/dL Normal 5 - 21 mg/dL [facility] Urea nitrogen/Creatinine [Mass ratio] 38 mg/mg High 10 - 20 [facility] CHEMISTRYOrdered By: Lorene Bahena on 02-17-2022 HbA1c (Bld) [Mass fraction] 5.7 % Normal <=5.9% [facility] ChemAutoSS CMPon 02-17-2022 Albumin [Mass/Vol] 3.4 g/dL Normal 3.3-5.0 [facility] Comment on above: Performed By: #### 7 03579819, 53490112, 2996349, 7114151, 8918661, 9449367, 2077626, 9528741, 21023279, 2897779, 71188344, 549311233 ####[facility] [address] [place] [address] Albumin/Globulin (S) [Mass conc ratio] 1.1 Normal 1.1-2.2 [facility] Comment on above: Performed By: #### 7 31074594, 08859484, 1272636, 9031514, 3075228, 8175339, 6179727, 3507904, 75709691, 1341192, 39328568, 817041910 ####[facility] [address] [place] [address] ALP [Catalytic activity/Vol] 71 Int._Unit/L Normal 21-98 [facility] Comment on above: Performed By: #### 7 58712370, 03500480, 8495294, 1205180, 3814830, 0153093, 1745309, 9527997, 84127125, 9281465, 02987464, 256931468 ####[facility] [address] [place] [address] ALT No additional P-5'-P [Catalytic activity/Vol] 17 Int._Unit/L Normal 6-46 [facility] Comment on above: Performed By: #### 7 56876663, 52769246, 5215262, 4906880, 6693500, 5271573, 7445059, 6001286, 27727949, 2506829, 33978843, 281823688 ####[facility] [address] [place] [address] Anion gap [Moles/Vol] 9 mmol/L Normal 6-16 [facility] Comment on above: Performed By: #### 7 34366745, 30855042, 4941308, 5573341, 7498587, 1191198, 2430219, 5696190, 93376173, 6969571, 80060598, 864187234 ####[facility] [address] [place] [address] AST [Catalytic activity/Vol] 19 Int._Unit/L Normal 5-43 [facility] Comment on above: Performed By: #### 7 83854994, 86963288, 6473350, 9872310, 7152988, 5273846, 9788140, 2400772, 76053492, 7060882, 30622210, 795148515 ####[facility] [address] [place] [address] Bilirubin [Mass/Vol] 0.2 mg/dL Normal 0.0-1.1 [facility] Comment on above: Performed By: #### 7 91554078, 37966283, 1374546, 2940946, 2194234, 8423471, 8678081, 6818631, 40520546, 9553155, 46282938, 656485451 ####[facility] [address] [place] [address] Calcium [Mass/Vol] 8.9 mg/dL Normal 8.9-11.1 [facility] Comment on above: Performed By: #### 7 24560169, 68929466, 8414235, 0090743, 8081835, 5186691, 7393015, 3095872, 82049480, 5818735, 29691830, 434573712 ####[facility] [address] [place] [address] Chloride [Moles/Vol] 108 mmol/L Normal 101-111 [facility] Comment on above: Performed By: #### 7 82588357, 19893211, 5281742, 6398370, 5663247, 0290354, 7272921, 7761434, 10227910, 6629183, 86230610, 713879181 ####[facility] [address] [place] [address] CO2 [Moles/Vol] 26 mmol/L Normal 21-31 [facility] Comment on above: Performed By: #### 7 81872247, 30641552, 1775397, 2514547, 1367519, 1410065, 0199313, 0666269, 12950250, 2602626, 41022723, 189437502 ####[facility] [address] [place] [address] Creatinine [Mass/Vol] 0.5 mg/dL Normal 0.5-1.3 [facility] Comment on above: Performed By: #### 7 16627880, 07119067, 1072497, 8450769, 8487125, 2778017, 6201183, 3835442, 75513385, 2209783, 98007545, 380637104 ####[facility] [address] [place] [address] Globulin (S) [Mass/Vol] 3.2 g/dL Normal 1.4-4.0 [facility] Comment on above: Performed By: #### 7 30311293, 04529089, 0409085, 3825921, 8729870, 8700661, 6174268, 9767782, 33150661, 3986097, 32035486, 195572762 ####[facility] [address] [place] [address] Glucose [Mass/Vol] 101 mg/dL Normal 55-199 [facility] Comment on above: Result Comment: If t his glucose result represents a fasting glucose, interpretation should refer to the following reference range: 55-99 mg/dL Performed By: #### 7 00445683, 68838505, 0917830, 9689451, 5673987, 2671920, 4934320, 8376209, 70542240, 2765828, 91305256, 629111956 ####[facility] [address] [place] [address] Potassium [Moles/Vol] 3.6 mmol/L Normal 3.5-5.3 [facility] Comment on above: Performed By: #### 7 91239046, 05513227, 6932298, 9370875, 3412578, 9530575, 7488605, 6842397, 31900940, 9129770, 51682331, 254548850 ####[facility] [address] [place] [address] Protein [Mass/Vol] 6.6 g/dL Normal 6.0-7.8 [facility] Comment on above: Performed By: #### 7 85291149, 49293339, 0958879, 1017283, 5813133, 3908800, 5351274, 7714043, 16870487, 9164833, 29522956, 391505343 ####[facility] [address] [place] [address] Sodium [Moles/Vol] 139 mmol/L Normal 135-145 [facility] Comment on above: Performed By: #### 7 [id number], 09988211, 1667376, 4844146, 5208615, 5139110, 4788216, 0332568, 29861857, 7487841, 61101716, 225623975 ####[facility] [address] [place] [address] Urea nitrogen [Mass/Vol] 19 mg/dL Normal 5-21 [facility] Comment on above: Performed By: #### 7 [id number], 25651479, 0945756, 1443013, 1739601, 4298752, 4013001, 3757653, 10520340, 5079852, 11173883, 783685756 ####[facility] [address] [place] [address] Urea nitrogen/Creatinine [Mass ratio] 38 No Units High 10-20 [facility] Comment on above: Performed By: #### 7 [id number], 97450630, 7585353, 9803882, 6998210, 6020907, 2165938, 3547005, 22382822, 4758195, 81040535, 822349427 ####[facility] [address] [place] [address] Consent for Treatmenton Consent for Treatment [id number] #1.00CD:127 Normal [facility] Folateon 02-17-2022 Folate [Mass/Vol] 7.6 ng/mL Normal >=6.7 [facility] Comment on above: Performed By: #### 7 [id number], 12143722, 0149470, 5161915, 0628802, 2922493, 7859601, 3643194, 63287450, 7066512, 08740308, 158184055 ####[facility] [address] [place] [address] HEMATOLOGYOrdered By: SYSTEM SYSTEM on 02-17-2022 Basophils/100 [...] 5.7 E9/L Normal 2.0 - 7.5 E9/L FT HemeAutoSS HEMATOLOGYOrdered By: Adrienne Dotson on 02-17-2022 Erythrocyte distribution width (RBC) [Ratio] 15.3 % High 10.9 - 14.2 % FT [facility] Hematocrit (Bld) [Volume fraction] 36.7 % Normal 34.0 - 46.0 % FT [facility]SS Hemoglobin (Bld) [Mass/Vol] 12.2 g/dL Normal 12.0 - 16.0 gm/dL FT [facility]eAutoSS MCH (RBC) [Entitic mass] 28.9 pg Normal 27.0 - 34.0 pg FTMC HemeAutoSS MCHC (RBC) [Mass/Vol] 33.4 g/dL Normal 31.4 - 36.0 gm/dL FT HemeAutoSS MCV (RBC) [Entitic vol] 86.7 fL [...] 8.1 E9/L Normal 4.0 - 11.0 E9/L FT HemeAutoSS YncW8ihe 02-17-2022 HbA1c (Bld) [Mass fraction] 5.7 % Normal <=5.9 [facility] Comment on above: Performed By: #### 7 [id number], 93769384, 8658316, 7505699, 9162182, 6731711, 7384317, 7252786, 92565886, 1164424, 75057720, [id number] ####[facility] [address] [place] [address] Ironon 02-17-2022 Iron [Mass/Vol] 33 microgram/dL Low 35-153 [facility] Comment on above: Performed By: #### 7 [id number], 23721785, 8458549, 9077244, 3022947, 5326973, 6650953, 5938492, 24115319, 8628257, 71807133, 488468269 ####[facility] [address] [place] [address] Lipid Panelon 02-17-2022 Cholesterol [Mass/Vol] 173 mg/dL Normal 120-200 [facility] Comment on above: Performed By: #### 7 [id number], 58602808, 6605804, 0261224, 4048369, 7600055, 4222420, 9843843, 28622412, 9399335, 57174881, 653822722 ####[facility] [address] [place] [address] Cholesterol in HDL [Mass/Vol] 42 mg/dL Invalid Interpretation Code [facility] Comment on above: Result Comment: HDL > or equal to 60 mg/dL: Low cardiovascular risk HDL < 40 mg/dL : High cardiovascular risk Performed By: #### 7 [id number], 08482217, 2326922, 1788952, 8515473, 1038709, 3918606, 8651947, 96927926, 7876271, 16711313, 662721551 ####[facility] [address] [place] [address] Cholesterol in LDL [Mass/Vol] 109 mg/dL Normal <=129 [facility] Comment on above: Performed By: #### 7 82343148, 76518598, 0985773, 3874086, 2835637, 2488086, 0400831, 5261782, 32774271, 3440152, 67586390, 284993906 ####[facility] [address] [place] [address] Cholesterol in VLDL [Mass/Vol] 25 mg/dL Normal 7-40 [facility] Comment on above: Performed By: #### 7 [id number], 42695509, 2836511, 3684912, 4270215, 9221353, 7734541, 5076940, 20534657, 9665785, 56094823, 263047583 ####[facility] [address] [place] [address] Triglyceride [Mass/Vol] 127 mg/dL Normal <=149 [facility] Comment on above: Performed By: #### 7 77484228, 87521562, 8551770, 9603529, 7420918, 8701697, 5789329, 5344738, 46968127, 2804027, 42580883, 160879161 ####[facility] [address] [place] [address] Physician Orderon 02-17-2022 Physician Order [id number] #1.00CD:127 Normal [facility] Thyroid IIon 02-17-2022 Free T4 index Calc [Mass/Vol] 9.74 ng/dL Normal 5.90-13.10 [facility] Comment on above: Performed By: #### 7 [id number], 54807232, 0992758, 1512665, 6095974, 2364705, 4286819, 1479976, 26094512, 0483514, 81654051, 989198415 ####[facility] [address] [place] [address] T4 [Mass/Vol] 8.4 microgram/dL Normal 4.6-9.1 [facility] Comment on above: Performed By: #### 7 61493700, 50238588, 4527187, 9142773, 8812853, 9720244, 1039837, 6849564, 04445503, 0827214, 59920449, 655908374 ####[facility] [address] [place] [address] T4 uptake [Mass/Vol] 46.4 % Normal 32.0-48.4 [facility] Comment on above: Performed By: #### 7 66685701, 44741644, 4635588, 8840545, 1035059, 3006896, 7064875, 5875801, 79092797, 0903226, [id number], [id number] ####[facility] [address] [place] [address] TSH Qn 3.83 m[IU]/L Normal 0.34-5.60 [facility] Comment on above: Performed By: #### 7 [id number], [id number], 9419217, 2095062, 4639958, 0518631, 2684073, 9550334, 66363400, 5152642, 39572972, [id number] ####[facility] [address] [place] [address] Vit B12on 02-17-2022 Cobalamin (Vitamin B12) [Mass/Vol] 271 pg/mL Normal 50-1500 [facility] Comment on above: Performed By: #### 7 [id number], [id number], 2540220, 9472699, 7422512, 2727848, 5216632, 4966445, 77508199, 9949274, 64482261, [id number] ####[facility] [address] [place] [address] Vitamin D 25 Hydroxyon 02-17 25-hydroxyvitamin D3 [Mass/Vol] 17.4 ng/mL Low 30.0-100.0 [facility] Comment on above: Result Comment: Vit leonard D deficiency has been defined as a level of serum 25-OH vitamin D less than 20 ng/mL (1,2) by the [place] of [employer] and an Endocrine Society practice guideline. The Endocrine Society further defined vitamin D insufficiency as a level between 21 and 29 ng/mL (2). 1. IOM ([place] of [employer]). 2010. Dietary reference intakes for calcium and D. [place]: The National Academies Press. 2. Khadra MF, Willa RAHMAN, Jones FOUNTAIN, et al. Evaluation, treatment, and prevention of vitamin D deficiency: an Endocrine Society clinical practice guideline. JCEM. 2010; 96 (7):1911-30. Performed By: #### 7 [id number], [id number], 6872360, 7742282, 4500307, 8782107, 8221959, 8979945, 83323879, 3572010, 15431537, 136124471 ####[facility] [address] [place] [address] eGFRon 02-17-2022 GFR/1.73 sq M.predicted among blacks MDRD (S/P/Bld) [Vol rate/Area] mL/min/{1.73_m2} Normal >=59 [facility] Comment on above: Order Comment: Order added by Discern Expert. Result Comment: eGFR is race adjusted. AA=. Performed By: #### 7 [id number], 80086661, 4247035, 3256971, 8251571, 4260321, 0594088, 6811233, 04158934, 1715889, 61025489, [id number] ####[facility] [address] [place] [address] GFR/1.73 sq M.predicted among non-blacks MDRD (S/P/Bld) [Vol rate/Area] mL/min/{1.73_m2} Normal >=59 [facility] Comment on above: Order Comment: Order added by Discern Expert. Result Comment: [employer] Insurance Advisor bandar kidney disease could be indicated at eGFR's of less than 60 mL/min/1.73m2. Kidney failure is indicated at less than 15 mL/min/1.73m2. Performed By: #### 7 [id number], 90991472, 5819686, 8215315, 2390967, 1199112, 1996506, 1980486, 63827164, 1522551, 74014001, [id number] ####[facility] [address] [place] [address] Coding Summary.on 01-18-2022 Coding Summary. CD:[id number] Gh0bWw+PGhlYWQ+PE1FV SCbI24jkCHbmV6SQ3jVL C3KHYZUHZHGYF6ZDU3jb YH8WZioO4KemdQx JjawiYIiTF83CLo6LFY3 gIzqDIweiE1ssTXbP6b5 LxEmCX86eS58TDyzSLQu LcW4GfZrmolxcOXc Z2psXnObsYNuVrr+PHRh YmxlIHdpZHRoPScxMDAl EiMvsEzmVP7fKi7fEFJp LWNvbGxhcHNlOiBj s7usLRNeCVajMA6lqTht Z9LrlMH1QEWbu0m2Sz16 dHI+QFXcMEK4hVzsUJac p067DqRmt8djPZH6 yLIiGNeyUGR7L45dt2F8 ODSwBPSgTJD9rGZ0rK0w aFiujhyyC5KivZDiDoI9 ZNQ0cWMvpE0vlFpd vofasH6hHnz+W60TXJ1J OLYTVK8OIuj9E3HjHquf dHI+BB06YVXwDI88wQGt dNUen8jstRg2OjFi YGNvMXK1fWsjSLemk6Lp HTRgI05odXZgi1P9XCJw zPysoVZyPzYnbHU8hT2e HBvzmpmtl2gtvrno Iqnbz1mkjn32uO08C43n GHygFWEjCRQ3THWhQSVl tVkayt9ccW8hEn3+IDxj w6bad6hybBv0XpRs MWVzkbRdgFuiVOY7z0Ij Zw79K6TjoVueq2DjYev4 yg82gTMvr7W1iZB5THxv EWXowC4kITycIdN3 IDUfSwVcbO24sSBgOObq Xv4nrPgynZijML3yOLKc petpTVRwdI8zHGUrpDRf vJikZY4rGRIjmenb f809ToAwMGC7HQMyhWCp G3YzyL5gKeZyGQAeOBFn V9KmmDUlZJabG294WKha IjI4NEPrsvLrN5Gk MWTgnHqtJqO3a5R2Se2Z n0ZcgshjCJD8DAmcVGK0 ToB3HkKmPhX0G1BgPiv1 VLJewTmzHY8nG3Ju ADDrwldmmknzcMY1YTGa LZIxnI71hHHjREyzZh2v d6D1g512CNXvXPJwhR02 Yl7koYnsHFZclNOX uF6hdjaju7boutvvAnZh IIFxGYu0DId0RXLkqSpg KnMrSNJ2LyN3IAA7uYOo zM3vnQugtlgllX8x Oyc+X21leK8zVMN2VPF2 xghhHOOsueGeLD98FJ60 N0KwVefvyGQtvVV+PGRp bePzjMyjVP4sBfGk o7qki6NqTDgqR4SjMNXb TDjeVii9CDCzNML9qEH8 mN7tGEXhOCznc5U8hEW8 W3DbddMxek9vb4sl MVCeNYsgT15snDUel6C3 YDEnuRT8DPXpwRciPsOj wL03Dng+MVAxdJkhb0Ww Apjnc0iyr4vtgJt3 IjMwJSIgdmFsaWduPSJ0 w8IpQr76C71pHQwiZPMu WTVvJPThGQMkrShgro2x oP7lRs9+PGNvbCB3 qMX5kX0fEBXnNkT9TNox E128HeIzoYYoAdwqt3wh n6hcnVu0QyLkBCGisnGb cEoiCCH7y1FzCm59 G44fTAawGHBtTNLtFFCr BHMboXkfbc4dnH0dHc0+ WN5dw5vmew32yL18cPT+ PUKaTKN8oCxvUAtu NUGsdO8eQEuzHiY3EDIa DpKuzP32lXVoLUwrZr2a qXsxiNozQL1kYLDbtlch i420PxVjz1fdHEWo xDCmCHfeXBD0T89nv3R6 FDNyPTOjZYP2kVB3zA5y bGlnbjogbGVmdDsgdmVy tAerUOknGNrkK758 IHRvcDsnPlBhdGllbnQg EfQfNSm2H5NeGqp2KJOf uJqjZK1kvTCeDTghBr1p wBnvyDpbDC8gCTWp wgjsu024BaMqt1rhPFAt yOVxAYzbMEU5S33xu0I6 ONOxMJGnPUX9sLM2mZ1m bGlnbjogbGVmdDsg ynLfdCbsMAtpRJgxZ902 IHRvcDsnPkJpcnRoIERh tOO1DX80MI20lHWmp0X3 lFD9U9WxFMOluxvu ggngxWE2ECPuHPScoQ28 Nb4dsWixCm7qDXTkLOS7 YOGruWXnQ6WxhR4lXbDg TMGjNTXwZ2TobUJl JNqeA161KYwqFzF6ROHq zuFoD4HsGYRkjXjhZnU5 l0U1Gv8QL5T9QG63BJ74 kZIky4S7rLF4M6Yi YWHgeeaclfyodXE7BKBk BEExbO81Ru0oaIhsYj0f VJDfEXY4XHGqfCDoN3Rq bS7cYsFyCGPiFKNe F5WfvBCpIMuoP797XYqg GpA7XSJmdqOeV9XhLZYh wJhyBlU2t5Z3Ig9BNUo2 RA60YK40fKWki6K0 wAE4X1RrPWNuetosbxzh xWV4DJUnXJMxyD54Si2g yTabXn4rZFIoUCV4URAq nKQbV6MnhZ6cJxSm CCAzMBKeX5ZuiXElEGfb O991GDmtNkF0OKNwyeCq E8UoQSOxeLfgXiL8d4D3 Sy6IVMCiEC89QJC0 aCJ2TJ62PH09C2FqIgsg dGFibGU+PHRhYmxlIHdp ZHRoPScxMDAlJyBzdHls DH3lEt1hDNSoGJMh sEthhQUzWbOuy4ucRHLa OHpcRF0veDeoF1QkzUS0 CIKqa4t4Bd00P40aL5Gi dXA+ABQmzPG3jGQ8 tM2pHyAmKtZ7ODvaU208 TzWioMNuYqveq1ilj2nj dBn1MrX5KZEmpaIjnTqg ZQS3x4WfIn17C44l IHdpZHRoPSIxNSUiIHZh rGwvuv5tnB3rNk5+PGNv vED2mOI0kN3jEfNxMpW7 WJzwT539LqYdcGBe Vajjp4wiw0pnbZj5SqJv ZXTqmmIxjXssRLU4x7Su Dj70Y3PsfQtdm0AzQna3 jp68sYNqr7D4bNN3 F3XzQIZtengcgUIeeNde SS9nTHZsremsXAXhqD3z QYTyV6g1NiVaGyD8LQjt P5TbkdC8KGDacQYk RBdxGHE8M68pt5D5HDFy RMVtUCJ0cDA2aY7etVta bjogbGVmdDsgdmVydGlj OOcyKAzdG821RICu bSgdMJSplS0qVCXisGUh ePywBY3hHRMdfaggHgxA PFsYNH5OBMZLDrCXDPUj TDwvdGQ+PHRkIHN0 dJozKUspNZBolF7nJFDx C1z7SaEmAfK3RIasF4Eg HYOqxawlIv51oY2tRhYq TvB6WFzeV6TddnB5 QQZnoHUmCUgxPEQ7C01d r0Q4CRNfGVInZUA5dDO5 zD1tbIulxftywDRoqRsz dmVydGljYWwtYWxp O426SNGonBbnWfWrGeDq YcT7FsL4X1UeFdg1MKYy vPpmFE3suVSpOLhmYw7x qMgatBiyJZ0kMNQe phgnUKTsvR6aNVSgtYVm dQfeKV6iZQZyivujd395 FvVoPGR5YTZlmQZdE1Po vA7jDpTmGNGsJVWr A9OgmKGlRBsgR827QRzh BiW9EXFqjfMvA0GlOANp xYieEbZ5m1T1Hy06JGPQ ZWFyczwvdGQ+PHRk LUW5iTliRDrfBJTnfW3t XRTwL2k9EyVyQyE5KShb M4ZeLVDacbrnYa85tG0d RtDxChF8PTcwX5Wh mhR0BYVzqMPdIIruOYF8 D16ww9S5OVBpUWGeCDN9 xNK6tJ3kxTyfpsvlaQYg dDsgdmVydGljYWwt ARqlE609JLHfjYvtKoJc bWFsZTwvdGQ+PHRkIHN0 jNqoFLphGMTgiP4eNORm J8e3QoIuOcM7LMfg E6RyFXNreqnvDa70aX0y BlRdJgK4LEetM0LguiT3 MEYzpWJnTMykGMS7C10a l4P2SOHuFJRkNRU8 qRE8bI9pyRcuiqlacRZq dDsgdmVydGljYWwtYWxp S278TDCetBcgXcDaS9Zv cmluZzwvdGQ+PC90 gp41R5HoGlfnIes9RZNk LEC6iBO3sN4iDLEvNQvp k3T0iMC9Z1WqzwIvzp4k k4bjIWAhFGojF91t xPAyx7P9DBCyuEM8QFMv eSebKxBcbN47Bhp+PGNv hFkxa8YjUzspx9pyy8at aPp7GfFuFKJecgBk hAzyJRV4z9AmCk92E40c IHdpZHRoPSIzMCUiIHZh cGqtpv9lrA0mWd3+PGNv fGX3yDI0gH3pCtAd WgZ6HEklM100PhWzsAYl Gvmsk3crp5kqyGv6FqSr JHPgphUzlRfaLTO2e1Jg Wc39S5ScaBdnm2Qy Mfm0sx43gRHho4X1dUH1 B6InXHNkpeufqKSnoGnw WC3cFCMkaeyoKAFkiG9u KIUtS7o5SrUkAsU0 EUpbY2NqpgX6XTKhuVSn XMZrqWEQuX4eivvpm8iw jsxjZlFbEDNzAUn1ZAr0 LWFsaWduOiBsZWZ0 EjD6LIY1wEHdwO1abBay iiyabF8mFum+WAu4j1pd xONmSF3xjES8BI18EU17 aKSot9A7aNC5J5Sj VCJcwhwzyrsrmQV9SNQb YBMnwM86Ax1ugHoyCu1u UBZzGHE7PUAzzYYwZ3Ez rQ2dZjNzYAFcEAXm H2LiaVFlCYzgL552JHcd ZcO3FAUzxhKoQ4SoLCYc hFooLyY3k5Y8Ma4URL08 MN42LP13hAKtn6F5 hGW9O3FxETOdhlcryiyh iQY1GQGpYULoqV87Av5i wGvkKx5cQNVoRTL7GJTu tXJsC5HchB8rWjAq WQLzJRDwE9FzjIFjTZiq C880USgzUvD5NYFzlpQb H8WiHENlqKjnApP9y3H6 Ii4BEj16JE14QH19 tNQul7B5vLD5J9WpUUCi hhjcyzchkZL6SWRrXCGk lA05Df8joEubHw2eXSLx OTY0IJIynBRjZ7Ud nV5eGjMdXZZhNLAaZ0If iLRfEMwpN678JWkaFhQ8 EPGihcFhL7CaTTAxcZhm UsH1a3C7Nx6FCPzj szc3M1MyYzhguNP+PC90 TZLhIE77pCKsaXPhu8fy cWy6DhDhFTOaDYC5lYic DCkrd4QrKMBaH91j bGFw (more content not included)... Normal [facility] COVID-19 (MC)on 01-17-2022 SARS-CoV-2 (COVID-19) RNA PAVAN+probe Ql (Resp) Detected Abnormal Not Detected [facility] Comment on above: Result Comment: This test result should be correlated with clinical presentations and medical history by a healthcare provider to determine its clinical significance. This assay was performed by a reverse transcriptase real-time polymerase chain reaction (rt PCR) method on the [employer] system. This test has been authorized only [...] or revoked sooner. Performed By: #### 2 [id number] ####[facility] [address] [place] [address] SARS-CoV-2 (COVID-19) RNA PAVAN+probe Ql (Unsp spec) Pass Normal Pass [facility] Comment on above: Performed By: #### 2 [id number] ####[facility] [address] [place] [address] Specimen source Nom (Unsp spec) Nasal Normal [facility] Comment on above: Performed By: #### 2 [id number] ####[facility] [address] [place] [address] ADMITTED TO INTENSIVE CARE UNIT FOR CONDITION OF INTEREST:FIND:PT: Unknown Normal [facility] Comment on above: Performed By: #### 2 [id number] ####[place] [address] EMPLOYED IN A HEALTHCARE SETTING:FIND:PT: Unknown Normal [facility] Comment on above: Performed By: #### 2 [id number] ####[place] [address] FIRST TEST FOR CONDITION OF INTEREST:FIND:PT: Unknown Normal [facility] Comment on above: Performed By: #### 2 [id number] ####[place] [address] HAS SYMPTOMS RELATED TO CONDITION OF INTEREST:FIND:PT: Unknown Normal [facility] Comment on above: Performed By: #### 2 [id number] ####[place] [address] HOSPITALIZED FOR CONDITION OF INTEREST:FIND:PT: Unknown Normal [facility] Comment on above: Performed By: #### 2 [id number] ####[place] [address] STATUS:FIND:PT: Unknown Normal [facility] Comment on above: Performed By: #### 2 [id number] ####[place] [address] RESIDES IN A CONGREGATE CARE SETTING:FIND:PT: Unknown Normal [facility] Comment on above: Performed By: #### 2 [id number] ####[place] [address] Consent for Treatmenton 080 Consent for Treatment [id number] 3#1.00CD:127 Normal [facility] Physician Orderon 01-17-2022 Physician Order [id number] #1.00CD:127 Normal [facility] Vital Signs Date Time Vital Sign Value Performing Clinician Helen jacome 05-17-2022 13:43-0500 Blood Pressure Location Vinod NILL [facility] [place] 05-17-2022 13:43-0500 Diastolic blood pressure 86 mm[Hg] Vinod NILL [facility] 05-17-2022 13:43-0500 Heart rate 72 /min Vinod NILL [facility] 05-17-2022 13:43-0500 Respiratory rate 16 /min Vinod NILL [facility] 05-17-2022 13:43-0500 Systolic blood pressure 122 mm[Hg] Vinod NILL [facility] Encounters Encounter Date Encounter Type Care Provider Facility Start: 10-26-2022 End: 10-26-[address] ELEUTERIO CARRANZA . Facility:[facility] Start: 09-30-2022 End: 10-01-[address] ELEUTERIO CARRANZA . Facility: Start: 08-12-2022 End: 08-13-[address] ELEUTERIO CARRANZA . Facility: Start: 07-08-2022 End: 07-09-2022 ambulatory Vinod ISRAEL Facility:[facility] Start: 06-22-2022 End: 06-23-2022 ambulatory Vinod ISRAEL Facility:CD:[id number] Start: 06-20-2022 Encounter for preprocedural laboratory examination DR ELEUTERIO CARRANZA . [facility] Start: 06-17-2022 End: 06-18-2022 Encounter for preprocedural laboratory examination DR ELEUTERIO CARRANZA . Facility:[facility] Start: 06-17-2022 End: 06-18-[address] ELEUTERIO CARRANZA . Facility:[facility] Start: 05-17-2022 End: 05-18-2022 ambulatory Eleuterio Carranza PROVIDER Facility:[facility] Start: 05-17-2022 End: 05-17-2022 Patient encounter procedure Vinod ISRAEL General Surgery [facility] Start: 05-06-2022 End: 05-07-[address] ELEUTERIO CARRANZA . Facility:[facility] Start: 05-03-2022 End: 05-04-[address] ELEUTERIO CARRANZA . Facility:[facility] Start: 05-02-[address] ELEUTERIO CARRANZA . Facili ty:[facility] Start: 04-27-[address] ELEUTERIO CARRANZA . Facili ty:[facility] Start: 04-15-2022 End: 04-16-[address] ELEUTERIO CARRANZA . Facility: Start: 04-08-2022 End: 04-09-[address] ELEUTERIO CARRANZA . Facility: Start: 03-30-2022 ambulatory Eleuterio Carranza PROVIDER Fa cility:[facility] Start: 03-29-2022 End: 03-30-[address] ELEUTERIO CARRANZA . Facility: Start: 03-08-2022 End: 03-09-[address] ELEUTERIO CARRANZA . Facility: Start: 02-17-2022 End: 02-18-2022 ambulatory Eleuterio Carranza PROVIDER [facility] Start: 02-17-2022 End: 02-17-2022 Patient encounter procedure Eleuterio Carranza [facility] Start: 01-17-2022 End: 04-18-2022 ambulatory AYAAN BAH Facility[facility] Start: 01-17-2022 End: 04-17-2022 Recurring AYAAN BAH [facility] Procedures Date Procedure Procedure Detail Performing Clinician Start: 08-10-2011 Colonoscopy Vinod AGARWAL Appendectomy Vinod NILL Cholecystectomy Vinod ISRAEL Colonoscopy Vinod FRANCOL Dilation and curettage Yeison ISRAEL Exploratory laparotomy Yeison ISRAEL Total hysterectomy v ia vaginal approach Vinod ISRAEL Immunizations Immunization Date Immunization Notes Care Provider Fa cility NEGATED: Highlighted row has not occurred!05-17-2022 influenza virus vaccine, unspecified formulation Vinod ISRAEL [facility] [place] Payers Date Payer Category Payer Unknown [id number] 2.16.8 40.1.824144.3.579.2.727 1970 Unknown [id number] 2.16.8 40.1.301468.3.579.2.727 1971 Unknown [id number] 2.16.8 40.1.251415.3.579.2.727 1971 Unknown [id number] 2.16.8 40.1.727715.3.579.2.727 1971 Unknown [id number] 2.16.8 40.1.014471.3.579.2.727 1971 Unknown [id number] 2.16.8 40.1.119600.3.579.2.727 1971 Unknown [id number] 2.16.84 0.1.885249.3.579.2.593 1971 Unknown [id number] 2.16.84 0.1.627138.3.579.2.593 1971 Unknown [id number] 2.16.84 0.1.814536.3.579.2.593 1971 Unknown [id number] 2.16.84 0.1.669033.3.579.2.593 1971 Unknown [id number] 2.16.84 0.1.987835.3.579.2.593 1971 Unknown [id number] 2.16.84 0.1.120360.3.579.2.593 1971 Unknown [id number] 2.16.84 0.1.505407.3.579.2.593 1971 Unknown [id number] 2.16.84 0.1.661636.3.579.2.593 1971 Unknown [id number] 2.16.84 0.1.423373.3.579.2.593 1971 Unknown [id number] 2.16.84 0.1.890726.3.579.2.593 1971 Unknown [id number] 2.16.84 0.1.347231.3.579.2.593 1971 Unknown [id number] 2.16.84 0.1.546480.3.579.2.593 1971 Unknown [id number] 2.16.84 0.1.860221.3.579.2.593 1971 Unknown [id number] 2.16.84 0.1.608975.3.579.2.593 1971 Unknown [id number] 2.16.84 0.1.964597.3.579.2.593 1958 Medicaid [id number] 1958 Self-pay 1958 Unknown [id number] Social History Date Type Detail Facility [facility] Comment on above: denies Sex Assigned At Female [facility] Tobacco smoking status No Smokin g Status Entered [facility] Start: 05-17-2022 Tobacco smoking status Heavy t obacco smoker (finding) [facility] [place] Tobacco smoking status Never Gener al [facility] [place] Functional Status Date Assessment Result Facility 05-17-2022 Functional Status N/A [facility] Clinical Note 06-22-2022 Note Date & Type Note Facility 06-22-2022 Note OPERATIVE NOTE OPERATION DATE: 06/22/2022 PREOPERATIVE DIAGNOSIS: Personal history of colon polyps. POSTOPERATIVE DIAGNOSIS: A 3 mm sigmoid polyp. PROCEDURE: Colonoscopy to cecum. SURGEON: Vinod Israel M.D. ANESTHESIA: Monitored anesthesia care. ESTIMATED BLOOD [...] pathology results. CC: Eleuterio Carranza M.D. [facility] Clinical Note 05-17-2022 Note Date & Type [...] - Not Given Patient Refuses [facility] Comment on above: Result Comment: Elec tronically Signed By: Vinod ISRAEL MD\.br\Date and Time Signed: 05/17/22 14:41 EST Evaluation + Plan note 02-17-2022 Note Date & Type Note Facility 02-17-2022 Evaluation + Plan note Diagnostic Tests PendingInsulin Level Total 02/17/22 [facility] Evaluation + Plan note Note Date & Type Note Facility Evaluation + Plan note Future Appointments Appointment Date:04/29/2022 01:00:00 PM Scheduled Provider:Vinod ISRAEL MD Location:[facility] Appointment Type:[address] Hospital course Narrative Note Date & Type Note Facility Hospital course Narrative No data available for this section [facility] Hospital Discharge instructions Note Date & Type Note Facility Hospital Discharge instructions No data available for this section [facility] Progress note Note Date & Type Note Facility Progress note No data available for this section [facility] Summary Purpose Family History No Family History Records FoundNo Family History Records Found Advance Directives No Advanced Directives Records FoundNo Advanced Directives Records Found Additional Source Comments Care Team (unrecognized sect ion and content) Personnel Name: Eleuterio Carranza MD Address: [address] [place] [address] Personnel Name: Eleuterio Carranza MD Address: Address: [address] [place] [address] Personnel Name: Eleuterio Carranza MD Address: Address: [address] [place] [address] [place] [address]- INFORMATION SOURCE (unrecogn ized section and content) DATE CREATED AUTHOR 07/14/2022 [facility] DATE CREATED AUTHOR AUTHOR'Sana SILVEIRA 10/27/2022 [facility] pital FOR RECORDS PERTAINING TO PATIENTS WHO ARE [...] BE BASED ON THE PRIMARY CLINICAL RECORDS. [employer] provides no warranty or guarantee of the accuracy or completeness of information in this document.
[2023-10-14 11:40] LABS: Alanine Aminotransferase 21 U/L (14-59); Albumin Globulin Ratio 0.7; Albumin Level 3.1 g/dL (3.4-5.0); Alkaline Phosphatase 99 U/L (46-116); Anion Gap 13.8; Aspartate Amino Transferase 10 U/L (15-37); Bilirubin Total 0.4 mg/dL (0.2-1.0); Calcium 9.6 mg/dL (8.5-10.1); Carbon Dioxide 28.1 mmol/L (21.0-32.0); Chloride 101 mmol/L (98-107); Estimated GFR (African America >60 (>=60); Estimated GFR (Non-African Ame >60 (>=60); Free T3 2.07 pg/mL (2.18-3.98); Globulin 4.3 g/dL; Glucose 135 mg/dL (74-106); Potassium 3.9 mmol/L (3.5-5.1); Sodium 139 mmol/L (136-145); Thyroid Stimulating Hormone 2.405 uIU/mL (0.358-3.740); Total Protein 7.4 g/dL (6.4-8.2)
[2023-10-14 11:59] LABS: Free T4 1.24 ng/dL (0.76-1.46)
[2023-10-15 15:07] LABS: ACTH, Plasma 14.7 pg/mL (7.2-63.3)
== END 2023-10-14 10:32 | disposition home or self-care (01) ==
LOC: LAB 10:36
PROVIDERS: PCP Family Medicine; Visit Provider Family Medicine
DX: R53.83 Other fatigue (principal); I10 Essential (primary) hypertension; L65.9 Nonscarring hair loss, unspecified
CPT/HCPCS: 36415; 80053; 82024; 82306; 82533; 82607; 82746; 84439; 84443; 84481

== ENCOUNTER 2023-11-23 11:25 | Outpatient (OUT) | payer OTHER, SELFPAY ==
--- NOTE | 2023-11-23 11:33 | XR_ITS ---
The [address] [address] Patient Name: SYLVIE ALTAMIRANO MRN: [id number] date: 1970 Sex: F Assigned Patient Location: [facility] Current Patient Location: Accession/Order Number: [id number] Exam Date: 11/23/2023 11:38 Report Date: 11/24/2023 07:54 At the request of: ELEUTERIO KRAFT Procedure: XR lumbar spine 2-3V EXAMINATION: XR lumbar spine 2-3V HISTORY: Osteoarthritis COMPARISON: No relevant comparison available. FINDINGS: BONES: 2 mm anterolisthesis of L4 and L5. Mild degenerative spondylosis. Moderate facet osteoarthropathy most significant L4-S1 DISC SPACES: Normal. No significant disc height narrowing, subluxation, or endplate abnormality. PARASPINOUS: Negative. No paraspinous abnormality is seen. OTHER: Negative. XR/XR lumbar spine 2-3V IMPRESSION: Degenerative changes Electronically authenticated by: MOISE TREVINO Date: 11/24/2023 07:54
--- NOTE | 2023-11-23 11:33 | XR_ITS ---
The [place] [id number] Patient Name: SYLVIE ALTAMIRANO MRN: [id number] date: 1970 Sex: F Assigned Patient Location: [facility] Current Patient Location: [facility] Accession/Order Number: [id number] Exam Date: 11/23/2023 11:38 Report Date: 11/23/2023 13:16 At the request of: ELEUTERIO KRAFT Procedure: XR knee CESAR 3V EXAMINATION: XR knee CESAR 3V HISTORY: Bilateral Primary Osteoarthritis Of Knee M17.0 COMPARISON: 03/29/2022 FINDINGS: RIGHT FINDINGS: BONES: Progression of moderate tricompartmental osteoarthropathy with increased narrowing of the medial joint space and marginal osteophyte formation SOFT TISSUES: Negative. No visible soft tissue swelling. OTHER: Trace joint effusion LEFT FINDINGS: BONES: Progression of moderate to severe tricompartmental osteoarthropathy with [id number] articulation of the medial compartment SOFT TISSUES: Negative. No visible soft tissue swelling. OTHER: Trace joint effusion XR/XR knee CESAR 3V IMPRESSION: RIGHT CONCLUSION: Moderate osteoarthritis LEFT CONCLUSION: Moderate to severe osteoarthritis Electronically authenticated by: MOISE TREVINO Date: 11/23/2023 13:16
== END 2023-11-23 11:26 | disposition home or self-care (01) ==
LOC: RAD 11:27
PROVIDERS: PCP Family Medicine; Visit Provider Family Medicine
DX: M17.0 Bilateral primary osteoarthritis of knee (principal); M54.40 Lumbago with sciatica, unspecified side
CPT/HCPCS: 72100; 73562

== ENCOUNTER 2024-02-27 12:02 | Outpatient (OUT) | payer OTHER, SELFPAY ==
--- OUTSIDE RECORDS SUMMARY | 2024-02-27 12:20 | XMS_ITS | CCD ---
Author Organization [facility] Care Team Providers Care Inspecting Engineer Name Role Phone Eleuterio Carranza Primary Care [...] MCCLELLAN Attending Unavailable HOY ., DR MCCLELLAN Admjanina Unavailable HOY ., DR MCCLELLAN Primary Care Unavailable HOY ., DR MCCLELLAN Primary Care Unavailable HOY ., DR MCCLELLAN Admitting Unavailable HOY ., DR MCCLELLAN Attending Unavailable HOY ., DR MCCLELLAN Consulting Unavailable HOY ., DR MCCLELLAN Attending Unavailable HOY ., DR MCCLELLAN Admjanina Unavailable [...] Unavailable HAY ., DR GARDUNO Attending Unavailable JADA, PILO Consulting Unavailable HOY ., DR MCCLELLAN Consulting [...] Unavailable HOY ., DR MCCLELLAN Attending Unavailable RUBICON, DR MOISE Diaz Consulting Unavailable Allergies Allergy Classification Reported Allergen(s) Allergy Type Date of Onset Reaction(s) Facility (2 sources) venlafaxine; Translations: [venlafaxine] Drug Allergy Dizziness (finding) General Surgery [place] (1 source) venlafaxine Drug Allergy [facility] Repository Medications Current Medications Medication Drug Class(es) Dates Sig (Normalized) Sig (Original) acetaminophen 325 mg / HYDROcodone bitartrate 5 mg oral tablet (2 sources) Opioid Agonist Start: 03-06-2017 [place] 325 mg-5 mg oral tablet See Instructions, [...] BID, # 20 tab(s), Refills(s) 0, Pharmacy: [facility] 1984 Start Date: 07/27/18 Status: [...] 04-01-2022 Chronic Other aftercare (1 source) Other usp (current) drug therapy; 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 Electronically authenticated by: PILO Moore: 2022-10-26 19:03 Normal [facility] CULTURE BLOODon 09-30-2022 Microscopic examination of blood, culture Culture Observations: NO GROWTH AT 5 DAYS. Normal [facility] Comment on above: Performed By: #### T 7, TSH, LIPID, CMP #### [facility] [address] [address] [address] Sona Cruz Microscopic examination of blood, culture Culture Observations: NO GROWTH AT 5 DAYS. Normal [facility] Comment on above: Performed By: #### T 7, TSH, LIPID, CMP #### [facility] [address] [address] [address] Sona Cruz CULTURE URINEon 09-30-2022 CULTURE URINE Culture Observations: NO GROWTH. Normal [facility] Comment on above: Performed By: #### T 7, TSH, LIPID, CMP #### [facility] [address] [place] [address] Dr. Sona Cruz UA RANDOM W/MICROSCOPICon BACTERIA NONE SEEN Normal NONE SEEN [facility] Comment on above: Performed By: #### T 7, TSH, LIPID, CMP #### [facility] [address] [place] [address] Dr. Sona Cruz Bilirubin Ql (U) Negative Normal NEGATIVE [facility] Comment on above: Performed By: #### T 7, TSH, LIPID, CMP #### [facility] [address] [place] [address] Dr. Sona Cruz CAST NONE SEEN Normal NONE SEEN [facility] Comment on above: Performed By: #### T 7, TSH, LIPID, CMP #### [facility] [address] [place] [address] Dr. Sona Cruz Clarity (U) CLEAR Normal CLEAR [facility] Comment on above: Performed By: #### T 7, TSH, LIPID, CMP #### [facility] [address] [place] [address] Dr. Sona Cruz Color (U) LT. YELLOW Normal YELLOW [facility] Comment on above: Performed By: #### T 7, TSH, LIPID, CMP #### [facility] [address] [address] [address] Sona Cruz Crystals LM Nom (Urine sed) SEEN Abnormal NONE SEEN [facility] Comment on above: Performed By: #### T 7, TSH, LIPID, CMP #### [facility] [address] [address] [address] Sona Cruz Epithelial cells LM Ql (Urine sed) FEW Abnormal NONE SEEN /RARE [facility] Comment on above: Performed By: #### T 7, TSH, LIPID, CMP #### [facility] [address] [address] [address] Sona Cruz Glucose Ql (U) Negative Normal NEGATIVE [facility] Comment on above: Performed By: #### T 7, TSH, LIPID, CMP #### [facility] [address] [place] [address] Dr. Sona Cruz Hemoglobin Ql (U) Negative Normal NEGATIVE [facility] Comment on above: Performed By: #### T 7, TSH, LIPID, CMP #### [facility] [address] [address] [address] Sona Cruz Ketones Ql (U) Negative Normal NEGATIVE [facility] Comment on above: Performed By: #### T 7, TSH, LIPID, CMP #### [facility] [address] [address] [address] Sona Cruz LEUKOCYTES Negative Normal NEGATIVE [facility] Comment on above: Performed By: #### T 7, TSH, LIPID, CMP #### [facility] [address] [address] [address] Sona Cruz MUCOUS NONE SEEN Normal NONE SEEN [facility] Comment on above: Performed By: #### T 7, TSH, LIPID, CMP #### [facility] [address] [address] [address] Sona Cruz Nitrite Ql (U) Negative Normal NEGATIVE [facility] Comment on above: Performed By: #### T 7, TSH, LIPID, CMP #### [facility] [address] [address] [address] Sona Cruz pH (U) 5.5 [pH] Normal 5-9 [facility] Comment on above: Performed By: #### T 7, TSH, LIPID, CMP #### [facility] [address] [address] [address] Sona Cruz RBC 0-2 Normal 0-2 [facility] Comment on above: Performed By: #### T 7, TSH, LIPID, CMP #### [facility] [address] [place] [address] Dr. Sona Cruz SPEC GRAVITY 1.025 Normal 1.005-<=1.025 [facility] Comment on above: Performed By: #### T 7, TSH, LIPID, CMP #### [facility] [address] [place] [address] Dr. Sona Cruz UA PROTEIN Negative Normal NEGATIVE/ TRACE [facility] Comment on above: Performed By: #### T 7, TSH, LIPID, CMP #### [facility] [address] [place] [address] Dr. Sona Cruz Urobilinogen Qn (U) 0.2 {Dayanna'U}/dL Normal 0.2 - 1. 0 [facility] Comment on above: Performed By: #### T 7, TSH, LIPID, CMP #### [facility] [address] [place] [address] Dr. Sona Cruz WBC 0-2 Abnormal NONE SEEN [facility] Comment on above: Performed By: #### T 7, TSH, LIPID, CMP #### [facility] [address] [place] [address] Dr. Sona Cruz VITAMIN B12on 09-30-2022 Cobalamin (Vitamin B12) [Mass/Vol] 383.0 pg/mL Normal 193.0-986.0 [facility] Comment on above: Performed By: #### V ITB12 #### [facility] [address] [place] [address] Dr. Sona Cruz DANIELLE-GARCIA VIRUS (EBV) AB PROFILEon 08-15-2022 EBV Ab VCA, IgG 71.8 U/mL Critically high 0.0-17.9 [facility] Comment on above: Result Comment: Nega tive <18.0 Equivocal 18.0 - 21.9 Positive >21.9 Performed By: #### T 7, TSH, LIPID, CMP #### [facility] [address] [address] [address] Sona Cruz EBV Ab VCA, IgM <36.0 Normal 0.0-35.9 [facility] Comment on above: Result Comment: Nega tive <36.0 Equivocal 36.0 - 43.9 Positive >43.9 Performed By: #### T 7, TSH, LIPID, CMP #### [facility] [address] [address] [address] Sona Cruz EBV Nuclear Antigen Ab, IgG 146.0 U/mL Critically high 0.0-17.9 [facility] Comment on above: Result Comment: Nega tive <18.0 Equivocal 18.0 - 21.9 Positive >21.9 Performed By: #### T 7, TSH, LIPID, CMP #### [facility] [address] [place] [address] Dr. Sona Cruz Interpretation: Comment Normal [facility] Comment on above: Result Comment: EBV Interpretation Chart Moseely: Antibody Present + Antibody Absent - Interpretation [...] #### T 7, TSH, LIPID, CMP #### [facility] [address] [place] [address] Dr. Sona Cruz INSULINon 08-13-2022 Insulin 18.5 uIU/mL Normal 2.6-24.9 [facility] Comment on above: Performed By: #### T 7, TSH, LIPID, CMP #### [facility] [address] [place] [address] Dr. Sona Cruz CBC AUTO DIFFon 08-12-2022 BASO # 0.1 103/ul Normal 0.0-0.1 [facility] Comment on above: Performed By: #### T 7, TSH, LIPID, CMP #### [facility] [address] [place] [address] Dr. Sona Cruz Basophils/100 WBC (Bld) 0.5 % Normal 0.2-2.0 [facility] Comment on above: Performed By: #### T 7, TSH, LIPID, CMP #### [facility] [address] [place] [address] Dr. Sona Cruz EO # 0.1 103/ul Normal 0.0-0.7 [facility] Comment on above: Performed By: #### T 7, TSH, LIPID, CMP #### [facility] [address] [place] [address] Dr. Sona Cruz Eosinophils/100 WBC (Bld) 0.9 % Normal 0.9-7.0 [facility] Comment on above: Performed By: #### T 7, TSH, LIPID, CMP #### [facility] [address] [place] [address] Dr. Sona Cruz Erythrocyte distribution width (RBC) [Ratio] 14.4 % Normal 11.0-15.0 [facility] Comment on above: Performed By: #### T 7, TSH, LIPID, CMP #### [facility] [address] [place] [address] Dr. Sona Cruz Hematocrit (Bld) [Volume fraction] 41.8 % Normal 36.0-48.0 [facility] Comment on above: Performed By: #### T 7, TSH, LIPID, CMP #### [facility] [address] [place] [address] Dr. Sona Cruz Hemoglobin (Bld) [Mass/Vol] 14.0 g/dL Normal 12.0-16.0 [facility] Comment on above: Performed By: #### T 7, TSH, LIPID, CMP #### [facility] [address] [place] [address] Dr. Sona Cruz IG # 0.12 10e3/ul Critically high 0.00-0.03 [facility] Comment on above: Performed By: #### T 7, TSH, LIPID, CMP #### [facility] [address] [address] [address] Sona Cruz IG % 1.0 % Critically high 0.0-0.5 [facility] Comment on above: Performed By: #### T 7, TSH, LIPID, CMP #### [facility] [address] [address] [address] Sona Cruz LYMPH # 1.8 103/ul Normal 1.2-3.8 [facility] Comment on above: Performed By: #### T 7, TSH, LIPID, CMP #### [facility] [address] [place] [address] Dr. Sona Cruz Lymphocytes/100 WBC (Bld) 14.4 % Critically low 20.5-60.0 [facility] Comment on above: Performed By: #### T 7, TSH, LIPID, CMP #### [facility] [address] [place] [address] Dr. Sona Cruz MANUAL DIFF REQ NO Normal [facility] Comment on above: Performed By: #### T 7, TSH, LIPID, CMP #### [facility] [address] [place] [address] Dr. Sona Cruz MCH (RBC) [Entitic mass] 30.0 pg Normal 26.7-34.0 [facility] Comment on above: Performed By: #### T 7, TSH, LIPID, CMP #### [facility] [address] [place] [address] Dr. Sona Cruz MCHC (RBC) [Mass/Vol] 33.5 g/dL Normal 29.9-35.2 [facility] Comment on above: Performed By: #### T 7, TSH, LIPID, CMP #### [facility] [address] [place] [address] Dr. Sona Cruz MCV (RBC) [Entitic vol] 89.5 fL Normal 81.0-99.0 [facility] Comment on above: Performed By: #### T 7, TSH, LIPID, CMP #### [facility] [address] [place] [address] Dr. Sona Cruz MONO # 0.8 103/ul Normal 0.3-0.8 [facility] Comment on above: Performed By: #### T 7, TSH, LIPID, CMP #### [facility] [address] [place] [address] Dr. Sona Cruz Monocytes/100 WBC (Bld) 6.6 % Normal 1.7-12.0 [facility] Comment on above: Performed By: #### T 7, TSH, LIPID, CMP #### [facility] [address] [place] [address] Dr. Sona Cruz NEUT # 9.5 103/ul Critically high 1.4-6.5 [facility] Comment on above: Performed By: #### T 7, TSH, LIPID, CMP #### [facility] [address] [place] [address] Dr. Sona Cruz Neutrophils/100 WBC (Bld) 76.6 % Critically high 43.0-75.0 [facility] Comment on above: Performed By: #### T 7, TSH, LIPID, CMP #### [facility] [address] [place] [address] Dr. Sona Cruz Platelet mean volume (Bld) [Entitic vol] 10.5 fL Normal 9.5-13.5 [facility] Comment on above: Performed By: #### T 7, TSH, LIPID, CMP #### [facility] [address] [place] [address] Dr. Sona Cruz PLT 261 103/ul Normal 150-450 [facility] Comment on above: Performed By: #### T 7, TSH, LIPID, CMP #### [facility] [address] [place] [address] Dr. Sona Cruz RBC 4.67 106/ul Normal 4.20-5.40 [facility] Comment on above: Performed By: #### T 7, TSH, LIPID, CMP #### [facility] [address] [place] [address] Dr. Sona Cruz WBC 12.4 103/ul Critically high 4.0-11.0 [facility] Comment on above: Performed By: #### T 7, TSH, LIPID, CMP #### [facility] [address] [place] [address] Dr. Sona Cruz CULTURE BLOODon 08-12-2022 Microscopic examination of blood, culture Culture Observations: NO GROWTH AT 5 DAYS. Isolate 1 BC_BA_NA Normal [facility] Comment on above: Performed By: #### T 7, TSH, LIPID, CMP #### [facility] [address] [place] [address] Dr. Sona Cruz Microscopic examination of blood, culture Culture Observations: NO GROWTH AT 5 DAYS. Isolate 1 BC_BA_NA Normal [facility] Comment on above: Performed By: #### T 7, TSH, LIPID, CMP #### [facility] [address] [place] [address] Dr. Sona Cruz CULTURE URINEon 08-12-2022 CULTURE URINE Culture Observations: NO GROWTH. Normal [facility] Comment on above: Performed By: #### U RCX #### [facility] [address] [place] [address] Dr. Sona Cruz FREE THYROXINE INDEX T7on FTI 3.65 Normal 1.30-4.50 [facility] Comment on above: Performed By: #### T 7, TSH, LIPID, CMP #### [facility] [address] [place] [address] Dr. Sona Cruz T3U 38.0 % Normal 30.0-39.0 [facility] Comment on above: Performed By: #### T 7, TSH, LIPID, CMP #### [facility] [address] [place] [address] Dr. Sona Cruz T4 [Mass/Vol] 9.60 ug/dL Normal 4.80-13.90 [facility] Comment on above: Performed By: #### T 7, TSH, LIPID, CMP #### [facility] [address] [place] [address] Dr. Sona Cruz GLYCOHEMOGLOBIN A1Con 2022 ADA RECOMMENDATION SEE BELOW Normal [facility] Comment on above: Result Comment: ADA RECOMMENDED LIMIT 4.0 - 6.0 ADA THERAPEUTIC TARGET < 7.0 ACTION SUGGESTED > 7.0 Performed By: #### T 7, TSH, LIPID, CMP #### [facility] [address] [address] [address] Sona Cruz Glucose [Mass/Vol] 111 mg/dL Normal [facility] Comment on above: Performed By: #### T 7, TSH, LIPID, CMP #### [facility] [address] [address] [address] Sona Cruz HbA1c (Bld) [Mass fraction] 5.5 % Normal 4.5-6.2 [facility] Comment on above: Performed By: #### T 7, TSH, LIPID, CMP #### [facility] [address] [address] [address] Sona Cruz IRONon 08-12-2022 Iron [Mass/Vol] 71.0 ug/dL Normal 50.0-170.0 [facility] Comment on above: Performed By: #### T 7, TSH, LIPID, CMP #### [facility] [address] [address] [address] Sona Cruz LIPID PROFILEon 08-12-2022 CHOL-HDL RATIO NORM SEE BELOW Normal [facility] Comment on above: Result Comment: 3.3 - 4.4 LOW RISK 4.4 - 7.1 AVERAGE RISK 7.1 - 11.0 MODERATE RISK >11.0 HIGH RISK Performed By: #### T 7, TSH, LIPID, CMP #### [facility] [address] [address] [address] Sona Cruz Cholesterol [Mass/Vol] 216 mg/dL Critically high <=200 [facility] Comment on above: Performed By: #### T 7, TSH, LIPID, CMP #### [facility] [address] [address] [address] Sona Cruz Cholesterol in HDL [Mass/Vol] 64 mg/dL Critically high 40-60 [facility] Comment on above: Performed By: #### T 7, TSH, LIPID, CMP #### [facility] [address] [address] [address] Sona Cruz Cholesterol in LDL [Mass/Vol] 132.4 mg/dL Normal [facility] Comment on above: Performed By: #### T 7, TSH, LIPID, CMP #### [facility] [address] [address] [address] Sona Cruz Cholesterol.total/Cho lesterol in HDL [Mass ratio] 3.4 {ratio} Normal [facility] Comment on above: Performed By: #### T 7, TSH, LIPID, CMP #### [facility] [address] [address] [address] Sona Cruz HDL NORMAL > or = 60 mg/dl - LOW CARDIOVASCULAR RISK <40 mg/dl - HIGH CARDIOVASCULAR RISK Normal [facility] Comment on above: Performed By: #### T 7, TSH, LIPID, CMP #### [facility] [address] [address] [address] Sona Cruz LDL CALC NORMAL SEE BELOW Normal [facility] Comment on above: Result Comment: <100 mg/dl OPTIMAL 100 - 129 mg/dl NEAR OR ABOVE OPTIMAL 130 - 159 mg/dl BORDERLINE HIGH 160 - 189 mg/dl HIGH >190 mg/dl VERY HIGH Performed By: #### T 7, TSH, LIPID, CMP #### [facility] [address] [address] [address] Sona Cruz Triglyceride [Mass/Vol] 98 mg/dL Normal <=150 [facility] Comment on above: Performed By: #### T 7, TSH, LIPID, CMP #### [facility] [address] [address] [address] Sona Cruz VLDL CALC 19.6 mg/dL Normal [facility] Comment on above: Performed By: #### T 7, TSH, LIPID, CMP #### [facility] [address] [address] [address] Sona Cruz MONOon 08-12-2022 Monocytes (Bld) [#/Vol] Negative Normal NEGATIVE [facility] Comment on above: Performed By: #### I MADDI #### [facility] [address] [address] [address] Sona Cruz PROF 14(COMP METB)on 023 Albumin [Mass/Vol] 3.9 g/dL Normal 3.4-5.0 [facility] Comment on above: Performed By: #### T 7, TSH, LIPID, CMP #### [facility] [address] [address] [address] Sona Cruz Albumin/Globulin [Mass ratio] 1.1 {ratio} Normal [facility] Comment on above: Performed By: #### T 7, TSH, LIPID, CMP #### [facility] [address] [place] [address] Dr. Sona Cruz ALP [Catalytic activity/Vol] 106 U/L Normal 46-116 [facility] Comment on above: Performed By: #### T 7, TSH, LIPID, CMP #### [facility] [address] [place] [address] Dr. Sona Cruz ALT [Catalytic activity/Vol] 22 U/L Normal 14-59 [facility] Comment on above: Performed By: #### T 7, TSH, LIPID, CMP #### [facility] [address] [place] [address] Dr. Sona Cruz Anion gap [Moles/Vol] 12.5 mmol/L Normal [facility] Comment on above: Performed By: #### T 7, TSH, LIPID, CMP #### [facility] [address] [place] [address] Dr. Sona Cruz AST [Catalytic activity/Vol] 15 U/L Normal 15-37 [facility] Comment on above: Performed By: #### T 7, TSH, LIPID, CMP #### [facility] [address] [place] [address] Dr. Sona Cruz Bilirubin [Mass/Vol] 0.5 mg/dL Normal 0.2-1.0 [facility] Comment on above: Performed By: #### T 7, TSH, LIPID, CMP #### [facility] [address] [place] [address] Dr. Sona Cruz Calcium [Mass/Vol] 9.6 mg/dL Normal 8.5-10.1 [facility] Comment on above: Performed By: #### T 7, TSH, LIPID, CMP #### [facility] [address] [place] [address] Dr. Sona Cruz Chloride [Moles/Vol] 102 mmol/L Normal 98-107 [facility] Comment on above: Performed By: #### T 7, TSH, LIPID, CMP #### [facility] [address] [address] [address] Sona Cruz CO2 [Moles/Vol] 28.3 mmol/L Normal 21.0-32.0 [facility] Comment on above: Performed By: #### T 7, TSH, LIPID, CMP #### [facility] [address] [address] [address] Sona Cruz Creatinine [Mass/Vol] 0.62 mg/dL Normal 0.55-1.02 [facility] Comment on above: Performed By: #### T 7, TSH, LIPID, CMP #### [facility] [address] [place] [address] Dr. Sona Cruz EGFR-AF RWANDAN >60 Normal >=60 [facility] Comment on above: Performed By: #### T 7, TSH, LIPID, CMP #### [facility] [address] [address] [address] Sona Cruz EGFR-NON AF RWANDAN >60 Normal >=60 [facility] Comment on above: Performed By: #### T 7, TSH, LIPID, CMP #### [facility] [address] [address] [address] Sona Cruz Globulin (S) [Mass/Vol] 3.7 g/dL Normal [facility] Comment on above: Performed By: #### T 7, TSH, LIPID, CMP #### [facility] [address] [address] [address] Sona Cruz Glucose [Mass/Vol] 106 mg/dL Normal 74-106 [facility] Comment on above: Performed By: #### T 7, TSH, LIPID, CMP #### [facility] [address] [address] [address] Sona Cruz Potassium [Moles/Vol] 3.8 mmol/L Normal 3.5-5.1 [facility] Comment on above: Performed By: #### T 7, TSH, LIPID, CMP #### [facility] [address] [place] [address] Dr. Sona Cruz Protein [Mass/Vol] 7.6 g/dL Normal 6.4-8.2 [facility] Comment on above: Performed By: #### T 7, TSH, LIPID, CMP #### [facility] [address] [place] [address] Dr. oSna Cruz Sodium [Moles/Vol] 139 mmol/L Normal 136-145 [facility] Comment on above: Performed By: #### T 7, TSH, LIPID, CMP #### [facility] [address] [place] [address] Dr. Sona Cruz Urea nitrogen [Mass/Vol] 25.0 mg/dL Critically high 7.0-18.0 [facility] Comment on above: Performed By: #### T 7, TSH, LIPID, CMP #### [facility] [address] [place] [address] Dr. Sona Cruz Urea nitrogen/Creatinine [Mass ratio] 40.3 mg/mg Normal [facility] Comment on above: Performed By: #### T 7, TSH, LIPID, CMP #### [facility] [address] [place] [address] Dr. Sona Cruz PROTIMEon 08-12-2022 INR Coag (PPP) [Relative time] {INR} Normal [facility] Comment on above: Performed By: #### T 7, TSH, LIPID, CMP #### [facility] [address] [place] [address] Dr. Sona Cruz INR GUIDELINES SEE BELOW Normal [facility] Comment on above: Result Comment: CAROL RED INR: 2.0 - 3.0 CONDITIONS NOT LISTED BELOW 2.5 - 3.5 FOR PROSTHETIC HEART VALVE REPLACEMENT 2.5 - 3.5 RECURRENT THROMBOSIS Performed By: #### T 7, TSH, LIPID, CMP #### [facility] [address] [place] [address] Dr. Sona Cruz PT Coag (PPP) [Time] 9.7 s Normal 9.0-11.6 [facility] Comment on above: Performed By: #### T 7, TSH, LIPID, CMP #### [facility] [address] [place] [address] Dr. Sona Cruz PTTon 08-12-2022 aPTT Coag (Bld) [Time] 27.1 s Normal 22.3-36.2 [facility] Comment on above: Performed By: #### T 7, TSH, LIPID, CMP #### [facility] [address] [place] [address] Dr. Sona Cruz SED RATE WESTERGRENon 2022 SED RATE 47 mm/hr Critically high <=30 The [facility] Comment on above: Performed By: #### T 7, TSH, LIPID, CMP #### [facility] [address] [place] [address] Dr. Sona Cruz TSHon 08-12-2022 TSH 2.474 uIU/mL Normal 0.358-3.740 [facility] Comment on above: Performed By: #### T 7, TSH, LIPID, CMP #### [facility] [address] [place] [address] Dr. Sona Cruz UA RANDOM W/MICROSCOPICon BACTERIA NONE SEEN Normal NONE SEEN [facility] Comment on above: Performed By: #### T 7, TSH, LIPID, CMP #### [facility] [address] [place] [address] Dr. Sona Cruz Bilirubin Ql (U) Negative Normal NEGATIVE [facility] Comment on above: Performed By: #### T 7, TSH, LIPID, CMP #### [facility] [address] [place] [address] Dr. Sona Cruz CAST NONE SEEN Normal NONE SEEN [facility] Comment on above: Performed By: #### T 7, TSH, LIPID, CMP #### [facility] [address] [place] [address] Dr. Sona Cruz Clarity (U) CLEAR Normal CLEAR [facility] Comment on above: Performed By: #### T 7, TSH, LIPID, CMP #### [facility] [address] [place] [address] Dr. Sona Cruz Color (U) YELLOW Normal YELLOW [facility] Comment on above: Performed By: #### T 7, TSH, LIPID, CMP #### [facility] [address] [address] [address] Sona Cruz Crystals LM Nom (Urine sed) NONE SEEN Normal NONE SEEN [facility] Comment on above: Performed By: #### T 7, TSH, LIPID, CMP #### [facility] [address] [address] [address] Sona Cruz Epithelial cells LM Ql (Urine sed) NONE SEEN Normal NONE SEEN /RARE [facility] Comment on above: Performed By: #### T 7, TSH, LIPID, CMP #### [facility] [address] [place] [address] Dr. Sona Cruz Glucose Ql (U) Negative Normal NEGATIVE [facility] Comment on above: Performed By: #### T 7, TSH, LIPID, CMP #### [facility] [address] [place] [address] Dr. Sona Cruz Hemoglobin Ql (U) Negative Normal NEGATIVE [facility] Comment on above: Performed By: #### T 7, TSH, LIPID, CMP #### [facility] [address] [place] [address] Dr. Sona Cruz Ketones Ql (U) Negative Normal NEGATIVE [facility] Comment on above: Performed By: #### T 7, TSH, LIPID, CMP #### [facility] [address] [address] [address] Sona Cruz LEUKOCYTES Negative Normal NEGATIVE [facility] Comment on above: Performed By: #### T 7, TSH, LIPID, CMP #### [facility] [address] [address] [address] Sona Cruz MUCOUS NONE SEEN Normal NONE SEEN [facility] Comment on above: Performed By: #### T 7, TSH, LIPID, CMP #### [facility] [address] [place] [address] Dr. Sona Cruz Nitrite Ql (U) Negative Normal NEGATIVE [facility] Comment on above: Performed By: #### T 7, TSH, LIPID, CMP #### [facility] [address] [place] [address] Dr. Sona Cruz pH (U) 6.0 [pH] Normal 5-9 [facility] Comment on above: Performed By: #### T 7, TSH, LIPID, CMP #### [facility] [address] [place] [address] Dr. Sona Cruz RBC 0-2 Normal 0-2 [facility] Comment on above: Performed By: #### T 7, TSH, LIPID, CMP #### [facility] [address] [place] [address] Dr. Sona Cruz SPEC GRAVITY 1.010 Normal 1.005-<=1.025 [facility] Comment on above: Performed By: #### T 7, TSH, LIPID, CMP #### [facility] [address] [place] [address] Dr. Sona Cruz UA PROTEIN Negative Normal NEGATIVE/ TRACE [facility] Comment on above: Performed By: #### T 7, TSH, LIPID, CMP #### [facility] [address] [place] [address] Dr. Sona Cruz Urobilinogen Qn (U) 0.2 {Dayanna'U}/dL Normal 0.2 - 1. 0 [facility] Comment on above: Performed By: #### T 7, TSH, LIPID, CMP #### [facility] [address] [place] [address] Dr. Sona Cruz WBC NONE SEEN Normal NONE SEEN [facility] Comment on above: Performed By: #### T 7, TSH, LIPID, CMP #### [facility] [address] [place] [address] Dr. Sona Cruz VITAMIN B12on 08-12-2022 Cobalamin (Vitamin B12) [Mass/Vol] 542.0 pg/mL Normal 193.0-986.0 [facility] Comment on above: Performed By: #### T 7, TSH, LIPID, CMP #### [facility] [address] [place] [address] Dr. Sona Cruz VITAMIN D 25 OHon 08-12-2022 VIT D 25-OH 23.3 ng/mL Normal [facility] Comment on above: Performed By: #### T 7, TSH, LIPID, CMP #### [facility] [address], [place] [address] Dr. Sona Cruz VIT D RANGES SEE BELOW Normal [facility] Comment on above: Result Comment: <20 ng/mL Vit D deficient 20 - <30 ng/mL Vit D insufficient 30 - 100 ng/mL Vit D sufficient >100 ng/mL Potential Toxicity Performed By: #### T 7, TSH, LIPID, CMP #### [facility] [address] [place], [place] [address] Dr. Sona Cruz Ambulatory Visit Summaryon 0 [...] Sleep apnea Tubular adenoma of colon Normal [facility] General Surgery Office/Clini c Noteon 07-08-2022 [...] inactivated - Not Given Patient Refuses Normal [facility] Comment on above: Result Comment: Elec tronically Signed By: QI ARGUETA, Vinod Neri\Date and Time Signed: 07/08/22 14:16 EST Reminderson 07-08-2022 Reminders - From: Gracia Rodas LPN To: N - Clinical; Sent: 07/08/2022 14:13:55 EST Show up: 05/22/2027 07:00:00 EST Subject: colonoscopy recall Due Date/Time: 06/22/2027 07:00:00 EST Reminder/Recall Patient is due for colonoscopy 06/22/2027 due to history of tubular adenoma. Normal [facility] Pathology Noteon 06-24-2022 Pathology Note [id number] #1.00CD:127 Normal [facility] Outside Colonoscopyon 2022 Outside Colonoscopy [id number] #1.00CD:127 Normal [facility] Lab Reportson 06-20-2022 Lab Reports [id number] #1.00CD:127 Normal [facility] ANTISTREPTOLYSIN O AB (ASO)o n 06-18-2022 Antistreptolysin O Ab 561.7 IU/mL Critically high 0.0-200. 0 [facility] Comment on above: Performed By: #### T 7, TSH, LIPID, CMP #### [facility] [address] [place] [address] Dr. Sona Cruz INSULINon 06-18-2022 Insulin 11.2 uIU/mL Normal 2.6-24.9 [facility] Comment on above: Performed By: #### T 7, TSH, LIPID, CMP #### [facility] [address] [place] [address] Dr. Sona Cruz CBC AUTO DIFFon 06-17-2022 BASO # 0.1 103/ul Normal 0.0-0.1 [facility] Comment on above: Performed By: #### T 7, TSH, LIPID, CMP #### [facility] [address] [place] [address] Dr. Sona Cruz Basophils/100 WBC (Bld) 0.6 % Normal 0.2-2.0 [facility] Comment on above: Performed By: #### T 7, TSH, LIPID, CMP #### [facility] [address] [address] [address] Sona Cruz EO # 0.2 103/ul Normal 0.0-0.7 [facility] Comment on above: Performed By: #### T 7, TSH, LIPID, CMP #### [facility] [address] [place] [address] Dr. Sona Cruz Eosinophils/100 WBC (Bld) 1.8 % Normal 0.9-7.0 [facility] Comment on above: Performed By: #### T 7, TSH, LIPID, CMP #### [facility] [address] [place] [address] Dr. Sona Cruz Erythrocyte distribution width (RBC) [Ratio] 15.3 % Critically high 11.0-15.0 [facility] Comment on above: Performed By: #### T 7, TSH, LIPID, CMP #### [facility] [address] [place] [address] Dr. Sona Cruz Hematocrit (Bld) [Volume fraction] 39.1 % Normal 36.0-48.0 [facility] Comment on above: Performed By: #### T 7, TSH, LIPID, CMP #### [facility] [address] [place] [address] Dr. Sona Cruz Hemoglobin (Bld) [Mass/Vol] 12.7 g/dL Normal 12.0-16.0 [facility] Comment on above: Performed By: #### T 7, TSH, LIPID, CMP #### [facility] [address] [place] [address] Dr. Sona Cruz IG # 0.15 10e3/ul Critically high 0.00-0.03 [facility] Comment on above: Performed By: #### T 7, TSH, LIPID, CMP #### [facility] [address] [place] [address] Dr. Sona Cruz IG % 1.3 % Critically high 0.0-0.5 [facility] Comment on above: Performed By: #### T 7, TSH, LIPID, CMP #### [facility] [address] [place] [address] Dr. Sona Cruz LYMPH # 2.0 103/ul Normal 1.2-3.8 [facility] Comment on above: Performed By: #### T 7, TSH, LIPID, CMP #### [facility] [address] [place] [address] Dr. Sona Cruz Lymphocytes/100 WBC (Bld) 16.3 % Critically low 20.5-60.0 [facility] Comment on above: Performed By: #### T 7, TSH, LIPID, CMP #### [facility] [address] [place] [address] Dr. Sona Cruz MANUAL DIFF REQ NO Normal [facility] Comment on above: Performed By: #### T 7, TSH, LIPID, CMP #### [facility] [address] [place] [address] Dr. Sona Cruz MCH (RBC) [Entitic mass] 28.7 pg Normal 26.7-34.0 [facility] Comment on above: Performed By: #### T 7, TSH, LIPID, CMP #### [facility] [address] [place] [address] Dr. Sona Cruz MCHC (RBC) [Mass/Vol] 32.5 g/dL Normal 29.9-35.2 [facility] Comment on above: Performed By: #### T 7, TSH, LIPID, CMP #### [facility] [address] [place] [address] Dr. Sona Cruz MCV (RBC) [Entitic vol] 88.3 fL Normal 81.0-99.0 [facility] Comment on above: Performed By: #### T 7, TSH, LIPID, CMP #### [facility] [address] [place] [address] Dr. Sona Cruz MONO # 0.8 103/ul Normal 0.3-0.8 [facility] Comment on above: Performed By: #### T 7, TSH, LIPID, CMP #### [facility] [address] [place] [address] Dr. Sona Cruz Monocytes/100 WBC (Bld) 6.4 % Normal 1.7-12.0 [facility] Comment on above: Performed By: #### T 7, TSH, LIPID, CMP #### [facility] [address] [place] [address] Dr. Sona Cruz NEUT # 8.8 103/ul Critically high 1.4-6.5 [facility] Comment on above: Performed By: #### T 7, TSH, LIPID, CMP #### [facility] [address] [place] [address] Dr. Sona Cruz Neutrophils/100 WBC (Bld) 73.6 % Normal 43.0-75.0 [facility] Comment on above: Performed By: #### T 7, TSH, LIPID, CMP #### [facility] [address] [place] [address] Dr. Sona Cruz Platelet mean volume (Bld) [Entitic vol] 10.3 fL Normal 9.5-13.5 [facility] Comment on above: Performed By: #### T 7, TSH, LIPID, CMP #### [facility] [address] [place] [address] Dr. Sona Cruz PLT 289 103/ul Normal 150-450 [facility] Comment on above: Performed By: #### T 7, TSH, LIPID, CMP #### [facility] [address] [place] [address] Dr. Sona Cruz RBC 4.43 106/ul Normal 4.20-5.40 [facility] Comment on above: Performed By: #### T 7, TSH, LIPID, CMP #### [facility] [address] [place] [address] Dr. Sona Cruz WBC 12.0 103/ul Critically high 4.0-11.0 [facility] Comment on above: Performed By: #### T 7, TSH, LIPID, CMP #### [facility] [address] [place] [address] Dr. Sona Cruz CULTURE URINEon 06-17-2022 CULTURE URINE Culture Observations: MODERATE GROWTH OF MIXED GENITAL DESI. NO POTENTIAL PATHOGENS SEEN. Normal [facility] Comment on above: Performed By: #### U RCX #### [facility] [address] [place] [address] Dr. Sona Cruz Covid-19 PCR (CVDTB)on SARS-CoV-2 (COVID-19) RNA PAVAN+probe Ql (Unsp spec) Not detected Normal NOT DETECTED [facility] Comment on above: Result Comment: This test is not yet approved or cleared by the [place] FDA. When there are no FDA-approved or cleared tests available, and other criteria are met, FDA can make tests available under an emergency access mechanism called an Emergency Use Authorization (EUA). The EUA for this test is supported by the Drawing Supervisor of Health and Human Service's (HHS's) declaration [...] #### T 7, TSH, LIPID, CMP #### [facility] [address] [place] [address] Dr. Sona Cruz FREE THYROXINE INDEX T7on FTI 2.89 Normal 1.30-4.50 [facility] Comment on above: Performed By: #### I MADDI #### [facility] [address] [place] [address] Dr. Sona Cruz T3U 34.0 % Normal 30.0-39.0 [facility] Comment on above: Performed By: #### I MADDI #### [facility] [address] [place] [address] Dr. Sona rCuz T4 [Mass/Vol] 8.50 ug/dL Normal 4.80-13.90 [facility] Comment on above: Performed By: #### I MADDI #### [facility] [address] [place] [address] Dr. Sona Cruz GLYCOHEMOGLOBIN A1Con 2022 ADA RECOMMENDATION SEE BELOW Normal [facility] Comment on above: Result Comment: ADA RECOMMENDED LIMIT 4.0 - 6.0 ADA THERAPEUTIC TARGET < 7.0 ACTION SUGGESTED > 7.0 Performed By: #### T 7, TSH, LIPID, CMP #### [facility] [address] [place] [address] Dr. Sona Cruz Glucose [Mass/Vol] 114 mg/dL Normal [facility] [place] [facility] Comment on above: Performed By: #### T 7, TSH, LIPID, CMP #### [facility] [address] [place] [address] Dr. Sona Cruz HbA1c (Bld) [Mass fraction] 5.6 % Normal 4.5-6.2 [facility] Comment on above: Performed By: #### T 7, TSH, LIPID, CMP #### [facility] [address] [place] [address] Dr. Sona Cruz IRONon 06-17-2022 Iron [Mass/Vol] 50.0 ug/dL Normal 50.0-170.0 [facility] Comment on above: Performed By: #### I MADDI #### [facility] [address] [place] [address] Dr. Sona Cruz LIPID PROFILEon 06-17-2022 CHOL-HDL RATIO NORM SEE BELOW Normal [facility] Comment on above: Result Comment: 3.3 - 4.4 LOW RISK 4.4 - 7.1 AVERAGE RISK 7.1 - 11.0 MODERATE RISK >11.0 HIGH RISK Performed By: #### I MADDI #### [facility] [address] [place] [address] Dr. Sona Cruz Cholesterol [Mass/Vol] 203 mg/dL Critically high <=200 [facility] Comment on above: Performed By: #### I MADDI #### [facility] [address] [place] [address] Dr. Sona Cruz Cholesterol in HDL [Mass/Vol] 74 mg/dL Critically high 40-60 [facility] Comment on above: Performed By: #### I MADDI #### [facility] [address] [place] [address] Dr. Sona Cruz Cholesterol in LDL [Mass/Vol] 112.4 mg/dL Normal [facility] Comment on above: Performed By: #### I MADDI #### [facility] [address] [address] [address] Sona Cruz Cholesterol.total/Cho lesterol in HDL [Mass ratio] 2.7 {ratio} Normal [facility] Comment on above: Performed By: #### I MADDI #### [facility] [address] [address] [address] Sona Cruz HDL NORMAL > or = 60 mg/dl - LOW CARDIOVASCULAR RISK <40 mg/dl - HIGH CARDIOVASCULAR RISK Normal [facility] Comment on above: Performed By: #### I MADDI #### [facility] [address] [place] [address] Dr. Sona Cruz LDL CALC NORMAL SEE BELOW Normal [facility] Comment on above: Result Comment: <100 mg/dl OPTIMAL 100 - 129 mg/dl NEAR OR ABOVE OPTIMAL 130 - 159 mg/dl BORDERLINE HIGH 160 - 189 mg/dl HIGH >190 mg/dl VERY HIGH Performed By: #### I MADDI #### [facility] [address] [address] [address] Sona Cruz Triglyceride [Mass/Vol] 83 mg/dL Normal <=150 [facility] Comment on above: Performed By: #### I MADDI #### [facility] [address] [place] [address] Dr. Sona Cruz VLDL CALC 16.6 mg/dL Normal [facility] Comment on above: Performed By: #### I MADDI #### [facility] [address] [place] [address] Dr. Sona Cruz PROF 14(COMP METB)on 023 Albumin [Mass/Vol] 3.5 g/dL Normal 3.4-5.0 [facility] [place] [facility] Comment on above: Performed By: #### I MADDI #### [facility] [address] [place] [address] Dr. Sona Cruz Albumin/Globulin [Mass ratio] 0.9 {ratio} Normal [facility] Comment on above: Performed By: #### I MADDI #### [facility] [address] [place] [address] Dr. Sona Cruz ALP [Catalytic activity/Vol] 105 U/L Normal 46-116 [facility] Comment on above: Performed By: #### I MADDI #### [facility] [address] [place] [address] Dr. Sona Cruz ALT [Catalytic activity/Vol] 18 U/L Normal 14-59 [facility] Comment on above: Performed By: #### I MADDI #### [facility] [address] [place] [address] Dr. Sona Cruz Anion gap [Moles/Vol] 10.8 mmol/L Normal [facility] Comment on above: Performed By: #### I MADDI #### [facility] [address] [place] [address] Dr. Sona Cruz AST [Catalytic activity/Vol] 16 U/L Normal 15-37 [facility] Comment on above: Performed By: #### I MADDI #### [facility] [address] [place] [address] Dr. Sona Cruz Bilirubin [Mass/Vol] 0.4 mg/dL Normal 0.2-1.0 [facility] Comment on above: Performed By: #### I MADDI #### [facility] [address] [place] [address] Dr. Sona Cruz Calcium [Mass/Vol] 9.2 mg/dL Normal 8.5-10.1 [facility] Comment on above: Performed By: #### I MADDI #### [facility] [address] [place] [address] Dr. Sona Cruz Chloride [Moles/Vol] 101 mmol/L Normal 98-107 [facility] Comment on above: Performed By: #### I MADDI #### [facility] [address] [place] [address] Dr. Sona Cruz CO2 [Moles/Vol] 31.4 mmol/L Normal 21.0-32.0 [facility] Comment on above: Performed By: #### I MADDI #### [facility] [address] [place] [address] Dr. Sona Cruz Creatinine [Mass/Vol] 0.64 mg/dL Normal 0.55-1.02 [facility] Comment on above: Performed By: #### I MADDI #### [facility] [address] [address] [address] Sona Cruz EGFR-AF RWANDAN >60 Normal >=60 [facility] Comment on above: Performed By: #### I MADDI #### [facility] [address] [address] [address] Sona Cruz EGFR-NON AF RWANDAN >60 Normal >=60 [facility] Comment on above: Performed By: #### I MADDI #### [facility] [address] [address] [address] Sona Cruz Globulin (S) [Mass/Vol] 3.9 g/dL Normal [facility] Comment on above: Performed By: #### I MADDI #### [facility] [address] [address] [address] Sona Cruz Glucose [Mass/Vol] 97 mg/dL Normal 74-106 [facility] [place] [facility] Comment on above: Performed By: #### I MADDI #### [facility] [address] [address] [address] Sona Cruz Potassium [Moles/Vol] 4.2 mmol/L Normal 3.5-5.1 [facility] Comment on above: Performed By: #### I MADDI #### [facility] [address] [address] [address] Sona Cruz Protein [Mass/Vol] 7.4 g/dL Normal 6.4-8.2 [facility] [place] [facility] Comment on above: Performed By: #### I MADDI #### [facility] [address] [address] [address] Sona Cruz Sodium [Moles/Vol] 139 mmol/L Normal 136-145 [facility] [place] [facility] Comment on above: Performed By: #### I MADDI #### [facility] [address] [address] [address] Sona Cruz Urea nitrogen [Mass/Vol] 21.0 mg/dL Critically high 7.0-18.0 [facility] Comment on above: Performed By: #### I MADDI #### [facility] [address] [place] [address] Dr. Sona Cruz Urea nitrogen/Creatinine [Mass ratio] 32.8 mg/mg Normal [facility] Comment on above: Performed By: #### I MADDI #### [facility] [address] [place] [address] Dr. Sona Cruz TSHon 06-17-2022 TSH 2.478 uIU/mL Normal 0.358-3.740 [facility] Comment on above: Performed By: #### I MADDI #### [facility] [address] [place] [address] Dr. Sona Cruz UA RANDOM W/MICROSCOPICon BACTERIA NONE SEEN Normal NONE SEEN [facility] Comment on above: Performed By: #### T 7, TSH, LIPID, CMP #### [facility] [address] [place] [address] Dr. Sona Cruz Bilirubin Ql (U) Negative Normal NEGATIVE [facility] Comment on above: Performed By: #### T 7, TSH, LIPID, CMP #### [facility] [address] [place] [address] Dr. Sona Cruz CAST NONE SEEN Normal NONE SEEN [facility] Comment on above: Performed By: #### T 7, TSH, LIPID, CMP #### [facility] [address] [place] [address] Dr. Sona Cruz Clarity (U) CLEAR Normal CLEAR [facility] Comment on above: Performed By: #### T 7, TSH, LIPID, CMP #### [facility] [address] [place] [address] Dr. Sona Cruz Color (U) LT. YELLOW Normal YELLOW [facility] Comment on above: Performed By: #### T 7, TSH, LIPID, CMP #### [facility] [address] [place] [address] Dr. Sona Cruz Crystals LM Nom (Urine sed) NONE SEEN Normal NONE SEEN [facility] Comment on above: Performed By: #### T 7, TSH, LIPID, CMP #### [facility] [address] [address] [address] Sona Cruz Epithelial cells LM Ql (Urine sed) FEW Abnormal NONE SEEN /RARE [facility] Comment on above: Performed By: #### T 7, TSH, LIPID, CMP #### [facility] [address] [address] [address] Sona Cruz Glucose Ql (U) Negative Normal NEGATIVE [facility] Comment on above: Performed By: #### T 7, TSH, LIPID, CMP #### [facility] [address] [address] [address] Sona Cruz Hemoglobin Ql (U) Negative Normal NEGATIVE [facility] Comment on above: Performed By: #### T 7, TSH, LIPID, CMP #### [facility] [address] [place] [address] Dr. Sona Cruz Ketones Ql (U) Negative Normal NEGATIVE [facility] Comment on above: Performed By: #### T 7, TSH, LIPID, CMP #### [facility] [address] [address] [address] Sona Cruz LEUKOCYTES Negative Normal NEGATIVE [facility] Comment on above: Performed By: #### T 7, TSH, LIPID, CMP #### [facility] [address] [address] [address] Sona Cruz MUCOUS NONE SEEN Normal NONE SEEN [facility] Comment on above: Performed By: #### T 7, TSH, LIPID, CMP #### [facility] [address] [address] [address] Sona Cruz Nitrite Ql (U) Negative Normal NEGATIVE [facility] Comment on above: Performed By: #### T 7, TSH, LIPID, CMP #### [facility] [address] [address] [address] Sona Cruz pH (U) 6.0 [pH] Normal 5-9 [facility] Comment on above: Performed By: #### T 7, TSH, LIPID, CMP #### [facility] [address] [address] [address] Sona Cruz RBC 0-2 Normal 0-2 [facility] Comment on above: Performed By: #### T 7, TSH, LIPID, CMP #### [facility] [address] [address] [address] Sona Cruz SPEC GRAVITY 1.020 Normal 1.005-<=1.025 [facility] Comment on above: Performed By: #### T 7, TSH, LIPID, CMP #### [facility] [address] [place] [address] Dr. Sona Cruz UA PROTEIN Negative Normal NEGATIVE/ TRACE [facility] Comment on above: Performed By: #### T 7, TSH, LIPID, CMP #### [facility] [address] [place] [address] Dr. Sona Cruz Urobilinogen Qn (U) 0.2 {Dayanna'U}/dL Normal 0.2 - 1. 0 [facility] Comment on above: Performed By: #### T 7, TSH, LIPID, CMP #### [facility] [address] [place] [address] Dr. Sona Cruz WBC 0-2 Abnormal NONE SEEN [facility] Comment on above: Performed By: #### T 7, TSH, LIPID, CMP #### [facility] [address] [place] [address] Dr. Sona Cruz Pre-Certification Formon Pre-Certification Form [id number] 2#1.00CD:127 Normal [facility] Consent for Procedure/Surger yon 05-19-2022 Consent for Procedure/Surgery [id number] #1.00CD:127 Normal [facility] ANTISTREPTOLYSIN O AB (ASO)o n 05-18-2022 Antistreptolysin O Ab 866.8 IU/mL Critically high 0.0-200. 0 [facility] Comment on above: Result Comment: Resu lts confirmed on dilution. Performed By: #### T 7, TSH, LIPID, CMP #### [facility] [address] [place] [address] Dr. Sona Cruz CBC AUTO DIFFon 05-17-2022 BASO # 0.1 103/ul Normal 0.0-0.1 [facility] Comment on above: Performed By: #### T 7, TSH, LIPID, CMP #### [facility] [address] [place] [address] Dr. Sona Cruz Basophils/100 WBC (Bld) 0.6 % Normal 0.2-2.0 [facility] Comment on above: Performed By: #### T 7, TSH, LIPID, CMP #### [facility] [address] [place] [address] Dr. Sona Cruz EO # 0.2 103/ul Normal 0.0-0.7 [facility] Comment on above: Performed By: #### T 7, TSH, LIPID, CMP #### [facility] [address] [place] [address] Dr. Sona Cruz Eosinophils/100 WBC (Bld) 1.8 % Normal 0.9-7.0 [facility] Comment on above: Performed By: #### T 7, TSH, LIPID, CMP #### [facility] [address] [place] [address] Dr. Sona Cruz Erythrocyte distribution width (RBC) [Ratio] 14.2 % Normal 11.0-15.0 [facility] Comment on above: Performed By: #### T 7, TSH, LIPID, CMP #### [facility] [address] [place] [address] Dr. Sona Cruz Hematocrit (Bld) [Volume fraction] 44.7 % Normal 36.0-48.0 [facility] Comment on above: Performed By: #### T 7, TSH, LIPID, CMP #### [facility] [address] [place] [address] Dr. Sona Cruz Hemoglobin (Bld) [Mass/Vol] 14.4 g/dL Normal 12.0-16.0 [facility] Comment on above: Performed By: #### T 7, TSH, LIPID, CMP #### [facility] [address] [place] [address] Dr. Sona Cruz IG # 0.09 10e3/ul Critically high 0.00-0.03 [facility] Comment on above: Performed By: #### T 7, TSH, LIPID, CMP #### [facility] [address] [place] [address] Dr. Sona Cruz IG % 0.7 % Critically high 0.0-0.5 [facility] Comment on above: Performed By: #### T 7, TSH, LIPID, CMP #### [facility] [address] [place] [address] Dr. Sona Cruz LYMPH # 2.2 103/ul Normal 1.2-3.8 [facility] Comment on above: Performed By: #### T 7, TSH, LIPID, CMP #### [facility] [address] [place] [address] Dr. Sona Cruz Lymphocytes/100 WBC (Bld) 17.2 % Critically low 20.5-60.0 [facility] Comment on above: Performed By: #### T 7, TSH, LIPID, CMP #### [facility] [address] [place] [address] Dr. Sona Cruz MANUAL DIFF REQ NO Normal [facility] Comment on above: Performed By: #### T 7, TSH, LIPID, CMP #### [facility] [address] [place] [address] Dr. Sona Cruz MCH (RBC) [Entitic mass] 28.7 pg Normal 26.7-34.0 [facility] Comment on above: Performed By: #### T 7, TSH, LIPID, CMP #### [facility] [address] [place] [address] Dr. Sona Cruz MCHC (RBC) [Mass/Vol] 32.2 g/dL Normal 29.9-35.2 [facility] Comment on above: Performed By: #### T 7, TSH, LIPID, CMP #### [facility] [address] [place] [address] Dr. Sona Cruz MCV (RBC) [Entitic vol] 89.0 fL Normal 81.0-99.0 [facility] Comment on above: Performed By: #### T 7, TSH, LIPID, CMP #### [facility] [address] [address] [address] Sona Cruz MONO # 0.9 103/ul Critically high 0.3-0.8 [facility] Comment on above: Performed By: #### T 7, TSH, LIPID, CMP #### [facility] [address] [place] [address] Dr. Sona Cruz Monocytes/100 WBC (Bld) 6.5 % Normal 1.7-12.0 [facility] Comment on above: Performed By: #### T 7, TSH, LIPID, CMP #### [facility] [address] [place] [address] Dr. Sona Cruz NEUT # 9.5 103/ul Critically high 1.4-6.5 [facility] Comment on above: Performed By: #### T 7, TSH, LIPID, CMP #### [facility] [address] [place] [address] Dr. Sona Cruz Neutrophils/100 WBC (Bld) 73.2 % Normal 43.0-75.0 [facility] Comment on above: Performed By: #### T 7, TSH, LIPID, CMP #### [facility] [address] [place] [address] Dr. Sona Cruz Platelet mean volume (Bld) [Entitic vol] 10.5 fL Normal 9.5-13.5 [facility] Comment on above: Performed By: #### T 7, TSH, LIPID, CMP #### [facility] [address] [place] [address] Dr. Sona Cruz PLT 319 103/ul Normal 150-450 [facility] Comment on above: Performed By: #### T 7, TSH, LIPID, CMP #### [facility] [address] [place] [address] Dr. Sona Cruz RBC 5.02 106/ul Normal 4.20-5.40 [facility] Comment on above: Performed By: #### T 7, TSH, LIPID, CMP #### [facility] [address] [place] [address] Dr. Sona Cruz WBC 13.0 103/ul Critically high 4.0-11.0 [facility] Comment on above: Performed By: #### T 7, TSH, LIPID, CMP #### [facility] [address] [place] [address] Dr. Sona Cruz CRPon 05-17-2022 CRP [Mass/Vol] mg/L Normal <=1.0 [facility] Comment on above: Performed By: #### T 7, TSH, LIPID, CMP #### [facility] [address] [place] [address] Dr. Sona Cruz CULTURE BLOODon 05-17-2022 Microscopic examination of blood, culture Culture Observations: NO GROWTH AT 5 DAYS. Normal [facility] Comment on above: Performed By: #### B LDCX2 #### [facility] [address] [place] [address] Dr. Sona Cruz Microscopic examination of blood, culture Culture Observations: NO GROWTH AT 5 DAYS. Normal [facility] Comment on above: Performed By: #### B LDCX1 #### [facility] [address] [place] [address] Dr. Sona Cruz [facility] 54 mm/hr Critically high <=30 [facility] Comment on above: Performed By: #### T 7, TSH, LIPID, CMP #### [facility] [address] [place] [address] Dr. Sona Cruz MRI LSPINE WO CONon [...] by: YUNIOR ROBBINS Date: 2022-05-06 15:01 Normal [facility] MG MAMM SCREEN 3D CESAR CADon 04-15-2022 MG MAMM SCREEN 3D CESAR CAD Patient: SYLVIE ALTAMIRANO Exam Date: 04/15/2022 : 1970 Gender:F Ordering : DR ELEUTERIO CARRANZA . Admission #: [id number] Family : Order #: [id number] CLICK HERE TO VIEW EXAM RADIOLOGY REPORT PROCEDURE: MAMMOGRAM SCREENING 3D BILATERAL CAD COMPARISON: None. INDICATIONS: Screening mammography Calculator Name NCI Breast Cancer Risk Assessment Tool 5 Year Breast Cancer Risk 0.80% Lifetime Breast Cancer Risk 7.10% Personal Breast Cancer No Personal Ovarian Cancer No Treatments None Family Cancers Sister with colon cancer at age 34. LOCATION: [facility] BREAST COMPOSITION: Almost entirely fatty. FINDINGS: [...] Hickey MD on 04/15/2022 at 14:17 Normal [facility] ECHOCARDIO M/2D COMPLETEon 1 ECHOCARDIO M/2D COMPLETE Patient: SYLVIE ALTAMIRANO Exam Date: 04/08/2022 : 1970 Gender:F Ordering : DR ELEUTERIO CARRANZA . Admission #: [id number] Family : Order #: [id number] CLICK HERE TO VIEW EXAM ECHOCARDIOGRAM REPORT [...] Lazaro M.D. on 04/13/2022 at 11:32 Normal [facility] SLE PROFILE Aon 04-01-2022 Anti-DNA (DS) Ab Qn 1 IU/mL Normal 0-9 [facility] Comment on above: Result Comment: Nega tive <5 Equivocal 5 - 9 Positive >9 Performed By: #### T 7, TSH, LIPID, CMP #### [facility] [address] [place] [address] Dr. Sona Cruz Antichromatin Antibodies <0.2 Normal 0.0-0.9 [facility] Comment on above: Performed By: #### T 7, TSH, LIPID, CMP #### [facility] [address] [address] [address] Sona Cruz RA Latex Turbid. <10.0 Normal <14.0 [facility] Comment on above: Performed By: #### T 7, TSH, LIPID, CMP #### [facility] [address] [address] [address] Sona Cruz FABRICATION WELDER Antibodies 0.2 AI Normal 0.0-0.9 [facility] Comment on above: Performed By: #### T 7, TSH, LIPID, CMP #### [facility] [address] [address] [address] oSna Cruz Sjogrольга'sana Anti-SS-A <0.2 Normal 0.0-0.9 [facility] Comment on above: Performed By: #### T 7, TSH, LIPID, CMP #### [facility] [address] [place] [address] Dr. Sona Pierceogrольга'sana Anti-SS-B <0.2 Normal 0.0-0.9 [facility] Comment on above: Performed By: #### T 7, TSH, LIPID, CMP #### [facility] [address] [address] [address] Sona Cruz Judd Antibodies <0.2 Normal 0.0-0.9 [facility] Comment on above: Performed By: #### T 7, TSH, LIPID, CMP #### [facility] [address] [place] [address] Dr. Sona Cruz REGGIE by IFAon 03-31-2022 Antinuclear Antibodies, IFA Negative Normal [facility] Comment on above: Result Comment: Nega tive <1:80 Borderline 1:80 Positive >1:80 ICAP nomenclature: AC-0 For more information about Hep-2 cell patterns use ANApatterns.org, the official website for the International Consensus on Antinuclear Antibody (REGGIE) Patterns (ICAP). Performed By: #### T 7, TSH, LIPID, CMP #### [facility] [address] [place] [address] Dr. Sona Cruz Physician Referralon 022 Physician Referral [id number] #1.00CD:127 Normal [facility] RHEUMATOID FACTORon 03-31-20 RA Latex Turbid. <10.0 Normal <14.0 [facility] Comment on above: Performed By: #### T 7, TSH, LIPID, CMP #### [facility] [address] [address] [address] Sona Cruz ANTISTREPTOLYSIN O AB (ASO)o n 03-30-2022 Antistreptolysin O Ab 1118.1 IU/mL Critically high 0.0-200 .0 [facility] Comment on above: Result Comment: Resu lts confirmed on dilution. Performed By: #### T 7, TSH, LIPID, CMP #### [facility] [address] [place] [address] Dr. Sona Cruz DANIELLE-GARCIA VIRUS (EBV) AB PROFILEon 03-30-2022 EBV Ab VCA, IgG 57.9 U/mL Critically high 0.0-17.9 [facility] Comment on above: Result Comment: Nega tive <18.0 Equivocal 18.0 - 21.9 Positive >21.9 Performed By: #### T 7, TSH, LIPID, CMP #### [facility] [address] [address] [address] Sona Cruz EBV Ab VCA, IgM <36.0 Normal 0.0-35.9 [facility] Comment on above: Result Comment: Nega tive <36.0 Equivocal 36.0 - 43.9 Positive >43.9 Performed By: #### T 7, TSH, LIPID, CMP #### [facility] [address] [address] [address] Sona Cruz EBV Nuclear Antigen Ab, IgG 135.0 U/mL Critically high 0.0-17.9 [facility] Comment on above: Result Comment: Nega tive <18.0 Equivocal 18.0 - 21.9 Positive >21.9 Performed By: #### T 7, TSH, LIPID, CMP #### [facility] [address] [place] [address] Dr. Sona Cruz Interpretation: Comment Normal [facility] Comment on above: Result Comment: EBV [...] #### T 7, TSH, LIPID, CMP #### [facility] [address] [address] [address] Sona Cruz XR KNEE CESAR 4V [...] by: YUNIOR ROBBINS Date: 2022-03-30 07:05 Normal [facility] XR LSPINE MIN 4 VIEWSon 03-12 XR [...] by: YUNIOR ROBBINS Date: 2022-03-30 07:13 Normal [facility] CRPon 03-29-2022 CRP 1.4 mg/dL Critically high <=1.0 [facility] Comment on above: Performed By: #### T 7, TSH, LIPID, CMP #### [facility] [address] [address] [address] Sona Cruz FREE THYROXINE INDEX T7on FTI 2.62 Normal 1.30-4.50 [facility] Comment on above: Performed By: #### T 7, TSH, LIPID, CMP #### [facility] [address] [place] [address] Dr. Sona Cruz T3U 34.0 % Normal 30.0-39.0 [facility] Comment on above: Performed By: #### T 7, TSH, LIPID, CMP #### [facility] [address] [place] [address] Dr. Sona Cruz T4 [Mass/Vol] 7.70 ug/dL Normal 4.80-13.90 [facility] Comment on above: Performed By: #### T 7, TSH, LIPID, CMP #### [facility] [address] [place] [address] Dr. Sona Cruz [facility] 48 mm/hr Critically high <=30 [facility] Comment on above: Performed By: #### T 7, TSH, LIPID, CMP #### [facility] [address] [place] [address] Dr. Sona Cruz TSHon 03-29-2022 TSH 2.577 uIU/mL Normal 0.358-3.740 [facility] Comment on above: Performed By: #### T 7, TSH, LIPID, CMP #### [facility] [address] [place] [address] Dr. Sona Cruz URIC ACID SERUMon 03-29-2022 Urate [Mass/Vol] 4.2 mg/dL Normal 2.6-6.0 [facility] Comment on above: Performed By: #### T 7, TSH, LIPID, CMP #### [facility] [address] [place] [address] Dr. Sona Cruz Coding Summary.on 02-18-2022 Coding Summary. CD:[id number] Gh0bWw+PGhlYWQ+PE1FV LByS38ccVBdcY2FT6uDU J9WVWZGFAIFKM2XCY4dk FC5WIowM3MwarNi BuokjRFbZK88XJw4NZW8 nYyeZKvtnO4zyRVgK2p3 FcNaCE06rP46FRcvKVVw IhW6AuVcydubxGNg R0jjPyCcwDWeYcs+PHRh YmxlIHdpZHRoPScxMDAl WmDtdQerNB4xZt6bCNEu LWNvbGxhcHNlOiBj s8hpFTXjQMlgNN0wbQhm S8TamCR6DYWfz7u6Ox45 dHI+TUTiZKD5oDkyFTqo t916BcOtu2kfTGC5 dMOlUHofKYA4D09ud3F3 NCJqBTUsLBO6hUP4vG4h kFgpzjsbP7YrzWXvNnL0 GWL4nBOyjF1igYhs tdcroD2yMdw+D88RME7X RNERJV7VGyo5A5VgAghz dHI+LA75GEIlIG94uLTy yFImp9dywVc0FwEq SZAwBBG9nYjlEPkac3Os JJSfC85pwVBrr7R9IFWz kHlbwSBiLfKhxRG1iJ0n UBoliuybg8edmebc Ajftd3oaff23nB57X98q XBmzZELjGDM4WNCsRSLw jOobdn0sdW6rNs5+IDxj x3kla9aolUh2EdOw DSNmxwPxyHrsCID1i2Pm Kh52W3OwiZwzq7TdCoc2 uy87sYTlv0T8aQS7TOkc DZUneU6hEIuxRoJ7 HGGcEcOoyM71rPRjGDwe Nq6aeVxytEklSR9nRGHq khzaUXVnuB2uQDRqfWDq nMuaDS9kZZBgskwc k413IjEuKGP6LZTnnZKw P3TztW6gYzJnBIShWUCr J5KviZUgPRtoE914PEbm EgE1ROLoovUyN5Sn RZIvoZiiCoP3u2P0Gv5J m6FhcikzHPA5RGzeKFT6 MsW9UkIfIhJ8M5PgRqa5 ROUyhQagQV3eD9Kh QZQtwptjcppaiOM1RASd KLGeyR13kFCwFRcaUt1w p4X2o565AQRgEZOqqW52 Cc7uvHvuRALexHKT tH9wbnjcn6gezjeyIgZk IHNvRKv5WKo1XOCpiFqy LpIvJSC6RpK0KDJ3sCRi wX8hfSbqhcfpiD0g Oyc+F93ejS5lQKS8EIN1 nvxzZDCjpnQvIL17JV42 A6PoMimgnCVjuTT+PGRp dbZbfHrpID4hYbZb e9zno0IeVVyxT5MzGHAs BDfgObk1CRJmKSZ1oSY0 lC5sQCNgYAaly2J5iEU0 N4LbuyMnvc4ul2pk URQbLLiwL44trOLij2Q1 ODLjnAY6SABikBydCyVg sG22Vxb+TTQrxYqnc4Rt Lovtk7aof5tcqSn9 IjMwJSIgdmFsaWduPSJ0 r0KjAj10O47sBBdjSRTr DXGsFSJrFSFwoSfepc4z gN2rAj6+PGNvbCB3 wIB5sW6kJBEtOaC2ZLal E760EwUsnDMtIzuzm7eq l3qcpSo9UiAyHYYvusAk aXqeLEA6r8ZvJi77 A51bTAlkXUVdQWYvXYVr TPVujZmkco9gyW3sXt1+ KC2rk9abwb96nZ53aSH+ NCEjDMO3cKumLYvr GZVcoA2gDJtqWaA1YNMb PsDssU12gQVgSWrlVt7w dAfugEfnIB0uDQTqrrpi b405RiEox0xjQDMn aJAjQAetYQA2P95ro7X0 WCQmTPHfCKH2tRU5xV4g bGlnbjogbGVmdDsgdmVy vDvtECzvZYrlA827 IHRvcDsnPlBhdGllbnQg OvEoIOv8Z6JyCuy7SMTx zQuuQH6gzPAwVGegAo8w sOnspWdpQV4vBOZf mnvsb360DqXsw5vqVAWe zOBoKEssUNM3O91vg8B5 QQZsXVDeXXC6qEC8vR8a bGlnbjogbGVmdDsg amNbhZsvIFrmVRncR155 IHRvcDsnPkJpcnRoIERh pLC7GA93MY09jEAev2X1 pNL2R5ZmNORgquhr zzogdLX7DWUoVNDmlO41 Fo8ddKqqMb1dGJFdCGG1 LYJrrUHpE9YreZ0xLjHg RDUkPYVaU0ShuDPi DJltQ383GUdlYnJ7HBSb hsYxU5KiJYUywXonJxD9 w8R5Ku1IA5L6LM80ZG08 jGRgx9P0eEF7X9Fb ZTFopqvzmtustLM4QBCn HNSljW85Fc7clFitKk0c NVZeMNH2FNQbrMMxC7Wz aL6bIrVgIVJnXDVm A2VbkQCeXVxfP451AZbw OiY5PESfjgAnQ6GlBTVh sDypFvG7i3O4Mz4HPBb7 ZW60NC72gYMvf5U8 bWQ9T9CfPZXrpuaybfsp rDI9QYBrBUJolP14Tx0x iXiiUn0sRPJqHEA3AWBw sDOvW7InsH5wPiDy ZSLiOJOuR9VnePShPOex W135HOpsUwA8WOLiuuXy H9KwLOJeiAxlAlG6l9W0 Lp3OVBAjMI97PKZ2 wFA1ZO77SN92E9XqVbjx dGFibGU+PHRhYmxlIHdp ZHRoPScxMDAlJyBzdHls WP9mVe9hXMBrYWEe mCgxxGJxTzQvg5ydKKUj YLvvZU4zgJosT3MkxCD5 URXxm3a3Ts41K66mN8Sr dXA+DPTgxRX0wKI1 nU5hZrRoDwE1FIctT080 PcEohXVgIomjb8khh0ia bDs7QlA8PUVjjcVogLho GKA8p8OrDh62X38u IHdpZHRoPSIxNSUiIHZh zNcecd5phH3qJk5+PGNv aDD9nVQ8nK9vOiVfIqR9 FTuqN551TnRleUHe Vschw9liq9giaBl4VfKv SUOxzmCvbGobILS8q4Us Lh89Y6NpjAgrg7QkFam2 gk94bIThq8K3zKF7 F8RkQYXacyhqgGKtnMkw AF3tAWZzwboiKBAnnU8j ELIaC7z1YtXhRxR4DJth N6YwqvU2FKPidJQt QSgyCYM2V24iz9U8WZZq FDJdJLX7wFB9jY7orTow bjogbGVmdDsgdmVydGlj PTwbKOtzN302PFUz xZoeVGEdpG2rJRZreWQn iTyzSW2uWOPqhwypGpxU JCcWMS6PPDKAWnAEEUEu TDwvdGQ+PHRkIHN0 xRusJUjfHANruP5fFIWn A5n6IvExFeL4TCkbH1Rk RBDzyykmWx81eK7nKaNf NiV2SMmvX0WnaqN5 HMLepHBlGEmuMXD3D68k r6R3NTKnNLGlQXF5hHJ6 oA9rfZmramkdaKWzkAwk dmVydGljYWwtYWxp U105RSFthXmfHrDzHvIw DiX2LdH9R0LoOzz3LZEh qJxjOQ3ayBAgTRuuMq7w oClwoCzxKA1xLGNr tcfbUMBslM1lLVHgrJMf zQweKE8sBTVubqxst679 EkXvWST9CECgrFXsA1Fp nR2dAyJfCPSzMZCa R4UonIPuZPjpO821PEik LeH1GPOmxiRvV1QdSZSh lVakPpV5u2C6Qk05HWRY ZWFyczwvdGQ+PHRk XNX5xHuuUGsiVFOeeS3y TSAcQ8z9KjGxDvK2DZai I2HlVSBehxdrLx65gY2e PfXlYcJ5BOukA3Fj oiW7PSNslTPuSCngXUR6 I64uf3X3JJHiDLLpRDF3 mIC0iY7mfUhsgynolTIh dDsgdmVydGljYWwt MNlbR297NUGrjXqmTeUe bWFsZTwvdGQ+PHRkIHN0 pTasJHkmNITqkD4xKPXx R8p9BbKlGlO3ZHub Q2XqRZGsrtdyKt43dA6o VqHfRcR3VBseA2ChnfT3 RKMsoTAeBObgBMU8J29q m7K4QBViUAOaTYL2 rKB2dD8qyQyclhielVKz dDsgdmVydGljYWwtYWxp F567JJAziLdwWr11hMHg eFjymoT8W5IfRvfa dHI+KB03KFEjBJ47aPGd rZTda1ktsLm1LpDyGARy SMC3gLfcBLruo9OqUJAp S62fkOXxl0X1QQXx zGsfcZZkAzThaUN1hQ6r NPnbyjlug1yyktdeUubh h4xiuj40rX37R06xNDwz ZHRoPSIzMCUiIHZh hYucio5lqH8iVb1+PGNv fAP8qLQ5yH1uAeJvMbZ8 VQptL114YsSlqABhWqof k9dui2wszMm5OxNq CKLeotUvzZegZJM6m5Nt Mx77F12uAOnuELCtUFUk HGJoVLIacIwpqc1jnI3l Ii8+GB6ol2rhub50 gS11lTU+UPEtKFI7oLjh CYpqHCYizC7lMOwwVxV9 XOVwXcWxuL99rSKdVLbx Rr1eaKchtBgbPW2p RKUzofhlc109ZlTgi1sz LIBjiNXaOJkfUQM8N45q t9Z5ODNsRPLlDRE7lOH2 qC2xxNwlwsbaiSXy dDsgdmVydGljYWwtYWxp I684RZDcbVzdSwBwhOUd Q1vmakTSOC1uBkqkkKK+ FCYaLQO6jRavKSvf VXCmpJ9cXQXjD2f6UhCe NfQ5IMgzJ4KtetF4BFRd oZHeOIWfnHYCyC7ctker y5xjyycxUiKsBWOu JAx2WTs2EOGjuWiwNfTs ASL3IqT4GGC6uUZtuW9v nMkzwmxhcY9iPyd+RklO OjwvdGQ+PHRkIHN0 mRanYYibUYYqiL1gGTFd K0r2SaYiWnQ5QJdvG3Cu piT0SVFmzYZbUCAfuMNH iH0nnwsii7jsphdd GgUnFZEoJCb6YBm2SLTc fKyfUiElTWG3RfJ5PJK8 dSYhsL9lwUylkvgqbS9w Oyc+TVJOOjwvdGQ+ TCKeHWW4xDgtBAbrVNBj mS9uZCHfA1m2OuCtYcE1 KLmaW1BsbsC1LSZuhNHl ROPsnQCJjT6ofxmv d5jxemvlQpAaHXTpTNr4 NRd3HZWgrFgjDpUfYXR7 UsA0LRZ0fRGmqL2odPdq mdlusY0mUvg+UGF5 XRA7NH31OR11I5AuBeay dGFibGU+PHRhYmxlIHdp ZHRoPScxMDAlJyBzdHls OF0mVo3oGMUpUDOr bGxh (more content not included)... Normal [facility] Insulin Lvlon 02-18-2022 Insulin Qn 10.2 u[IU]/mL Invalid Interpretation Code 2.6-24.9 [facility] Comment on above: Result Comment: Perf ormed at: [facility] [address] [id number] PhD Bonilla Maloney Performed By: #### 7 [id number], 13166394, 6693575, 5090027, 6257591, 6556793, 2737426, 5377952, 48000845, 8497267, 30979175, 296382436 ####[facility] [address] [place] [address] Auto Diffon 02-17-2022 Basophils/100 WBC (Bld) 0.4 % Normal 0.0-2.0 [facility] Comment on above: Order Comment: Order Added by Discern Expert. Performed By: #### 7 68861549, 56318671, 9149108, 9245350, 5409952, 4915805, 4301352, 1402889, 57294731, 7121082, 38240688, 994582338 ####[facility] [address] [place] [address] Basophils/Leukocytes Auto (Bld) [Pure # fraction] 0.0 E9/L Normal 0.0-0.2 [facility] Comment on above: Order Comment: Order Added by Discern Expert. Performed By: #### 7 03927131, 22460049, 9680419, 3908130, 7830633, 0265069, 4182689, 0823745, 25615765, 0693920, 92838037, 388825992 ####[facility] [address] [place] [address] Eosinophils/100 WBC (Bld) 2.8 % Normal 0.0-8.0 [facility] Comment on above: Order Comment: Order Added by Discern Expert. Performed By: #### 7 [id number], 01816891, 3639938, 6027737, 7626066, 9644154, 8936363, 5288702, 10782013, 6842662, 10661601, 338392043 ####[facility] [address] [place] [address] Eosinophils/Leukocyte s Auto (Bld) [Pure # fraction] 0.2 E9/L Normal 0.0-0.5 [facility] Comment on above: Order Comment: Order Added by Discern Expert. Performed By: #### 7 76487740, 07550409, 6941543, 0747692, 6895484, 2858820, 0425589, 3974160, 34793831, 2729608, 07639224, 830060470 ####[address] [place] [address] Lymphocytes/100 WBC (Bld) 19.0 % Normal 14.0-50.0 [facility] Comment on above: Order Comment: Order Added by Discern Expert. Performed By: #### 7 93120893, 93954206, 0205374, 7984430, 4010465, 5986516, 3921055, 5044031, 69189636, 1744362, 99123276, 326140376 ####[facility] [address] [place] [address] Lymphocytes/Leukocyte s Auto (Bld) [Pure # fraction] 1.5 E9/L Normal 1.0-4.0 [facility] Comment on above: Order Comment: Order Added by Discern Expert. Performed By: #### 7 34716917, 40858756, 6281085, 2736561, 8756134, 8918587, 7098817, 7951026, 66133769, 0157549, 01311877, 218361888 ####[facility] [address] [place] [address] Monocytes/100 WBC (Bld) 7.3 % Normal 4.0-14.0 [facility] Comment on above: Order Comment: Order Added by Discern Expert. Performed By: #### 7 73237048, 95025348, 8958153, 8906170, 3840192, 6855410, 3742559, 4500055, 81145144, 9977491, 50561894, 414716525 ####[facility] [address] [place] [address] Monocytes/Leukocytes Auto (Bld) [Pure # fraction] 0.6 E9/L Normal 0.2-1.0 [facility] Comment on above: Order Comment: Order Added by Discern Expert. Performed By: #### 7 38194153, 47066203, 0971032, 5559467, 7804456, 6035438, 2225525, 0777935, 47678069, 7837291, 60911162, 504363935 ####[facility] [address] [place] [address] Neutrophils/100 WBC (Bld) 70.5 % Normal 36.0-75.0 [facility] Comment on above: Order Comment: Order Added by Discern Expert. Performed By: #### 7 46608652, 56909097, 7425310, 2644617, 9691903, 9847916, 4250563, 5555452, 76625989, 4384995, 17936191, 426911993 ####[facility] [address] [place] [address] Neutrophils/Leukocyte s Auto (Bld) [Pure # fraction] 5.7 E9/L Normal 2.0-7.5 [facility] Comment on above: Order Comment: Order Added by Discern Expert. Performed By: #### 7 96173219, 63890186, 5329248, 5593634, 0348747, 4317584, 8796441, 0604027, 10479826, 8510462, 09140909, 802866099 ####[facility] [address] [place] [address] CBC w/ Auto Diffon 2 Erythrocyte distribution width (RBC) [Ratio] 15.3 % High 10.9-14.2 [facility] Comment on above: Performed By: #### 7 58794901, 58008419, 6446962, 3731516, 4236807, 6359475, 4752369, 4422783, 20457493, 2077277, 50788971, 103864514 ####[facility] [address] [place] [address] Hematocrit (Bld) [Volume fraction] 36.7 % Normal 34.0-46.0 [facility] Comment on above: Performed By: #### 7 87412695, 12430178, 4294517, 8022909, 3932409, 4053087, 3771948, 8098287, 02297895, 1317715, 67497027, 486699552 ####[address] [place] [address] Hemoglobin (Bld) [Mass/Vol] 12.2 g/dL Normal 12.0-16.0 [facility] Comment on above: Performed By: #### 7 16490934, 59497570, 1978527, 7733667, 1930001, 2021134, 4978205, 0445503, 08669114, 8937851, 66700517, 485406625 ####[facility] [address] [place] [address] MCH (RBC) [Entitic mass] 28.9 pg Normal 27.0-34.0 [facility] Comment on above: Performed By: #### 7 23375608, 37708864, 5537090, 4235521, 9380413, 4245517, 9747391, 5905291, 72251519, 0026143, 35664521, 497272685 ####[facility] [address] [place] [address] MCHC (RBC) [Mass/Vol] 33.4 g/dL Normal 31.4-36.0 [facility] Comment on above: Performed By: #### 7 68174375, 02660754, 5057366, 7868609, 3529135, 3028903, 5577501, 0206211, 35540561, 5365560, 92565131, 464510922 ####[facility] [address] [place] [address] MCV (RBC) [Entitic vol] 86.7 fL Normal 80.0-100.0 [facility] Comment on above: Performed By: #### 7 23329130, 48931149, 8806699, 8839835, 7995073, 3484127, 0347808, 7328006, 07890335, 7204311, 45788034, 487973851 ####[address] [address] Platelet mean volume (Bld) [Entitic vol] 9.0 fL Normal 6.4-10.8 [facility] Comment on above: Performed By: #### 7 61689695, 03883895, 0985651, 1075570, 2551706, 3430767, 0934939, 3170255, 95989192, 0624899, 70779911, 351738480 ####[facility] [address] [place] [address] Platelets (Bld) [#/Vol] 223.0 E9/L Normal 150.0-500.0 [facility] Comment on above: Performed By: #### 7 49148763, 41173700, 0793963, 5269891, 4459527, 9011363, 4990479, 3975413, 90018589, 6576950, 33615807, 123782948 ####[facility] [address] [place] [address] RBC (Bld) [#/Vol] 4.2 E12/L Low 4.3-5.9 [facility] Comment on above: Performed By: #### 7 33435127, 94410605, 8732037, 4600619, 0622573, 8729219, 3968621, 1079403, 44842812, 2378661, 26698969, 803620132 ####[facility] [address] [place] [address] WBC corrected for nucl RBC Auto (Bld) [#/Vol] 8.1 E9/L Normal 4.0-11.0 [facility] Comment on above: Performed By: #### 7 09940821, 38507865, 8578711, 7822882, 0582485, 1653638, 2953036, 7105926, 97012692, 4879732, 51614293, 534418946 ####[facility] [address] [place] [address] CHEMISTRYOrdered By: SYSTEM SYSTEM on 02-17-2022 25-hydroxyvitamin [...] % Normal 32.0 - 48.4 % F [facility] Triglyceride [Mass/Vol] 127 mg/dL Normal <=149mg/dL [facility] TSH Qn 3.83 m[IU]/L Normal 0.34 - 5.60 mcIU/mL [facility] Urea nitrogen [Mass/Vol] 19 mg/dL Normal 5 - 21 mg/dL [facility] Urea nitrogen/Creatinine [Mass ratio] 38 mg/mg High 10 - 20 [facility] CHEMISTRYOrdered By: Lorene Bahena on 02-17-2022 HbA1c (Bld) [Mass fraction] 5.7 % Normal <=5.9% [facility] ChemAutoSS CMPon 02-17-2022 Albumin [Mass/Vol] 3.4 g/dL Normal 3.3-5.0 [facility] Comment on above: Performed By: #### 7 67786024, 40719363, 9544989, 7387547, 5272459, 2152001, 9623355, 3181859, 13260839, 5118811, 01602025, 359283689 ####[facility] [address] [place] [address] Albumin/Globulin (S) [Mass conc ratio] 1.1 Normal 1.1-2.2 [facility] Comment on above: Performed By: #### 7 52036478, 37186077, 1757061, 0518134, 2479030, 8805985, 0647590, 3180136, 96243208, 1119508, 61814730, 488014051 ####[facility] [address] [place] [address] ALP [Catalytic activity/Vol] 71 Int._Unit/L Normal 21-98 [facility] Comment on above: Performed By: #### 7 31244643, 02607336, 0873222, 4087165, 1867288, 4966232, 5911619, 7031312, 61883258, 2189643, 13933765, 737999843 ####[facility] [address] [place] [address] ALT No additional P-5'-P [Catalytic activity/Vol] 17 Int._Unit/L Normal 6-46 [facility] Comment on above: Performed By: #### 7 66230458, 47525549, 7242925, 2159032, 7138061, 4145687, 7953038, 1249336, 72653739, 9059606, 44171503, 253133817 ####[facility] [address] [place] [address] Anion gap [Moles/Vol] 9 mmol/L Normal 6-16 [facility] Comment on above: Performed By: #### 7 80318380, 83430891, 0262391, 3844254, 5207291, 0673957, 4809490, 9834688, 30851713, 2711506, 27228456, 548065108 ####[facility] [address] [place] [address] AST [Catalytic activity/Vol] 19 Int._Unit/L Normal 5-43 [facility] Comment on above: Performed By: #### 7 77653326, 86444914, 4734596, 0472571, 0353977, 6418042, 7523885, 2630751, 49783912, 3023718, 48216085, 344785944 ####[facility] [address] [place] [address] Bilirubin [Mass/Vol] 0.2 mg/dL Normal 0.0-1.1 [facility] Comment on above: Performed By: #### 7 09439856, 13645006, 4399104, 2464926, 0520214, 9727031, 6838522, 0347802, 78119518, 5924467, 28241887, 767018001 ####[facility] [address] [place] [address] Calcium [Mass/Vol] 8.9 mg/dL Normal 8.9-11.1 [facility] Comment on above: Performed By: #### 7 38302603, 05327258, 1791136, 7806212, 9451541, 0997610, 1337645, 9276291, 31373538, 2362446, 59288687, 864085241 ####[facility] [address] [place] [address] Chloride [Moles/Vol] 108 mmol/L Normal 101-111 [facility] Comment on above: Performed By: #### 7 99972955, 25870134, 9432078, 3743642, 1229662, 6249088, 5086964, 4781575, 84533508, 4430831, 46410134, 280732054 ####[facility] [address] [place] [address] CO2 [Moles/Vol] 26 mmol/L Normal 21-31 [facility] Comment on above: Performed By: #### 7 32191631, 86678885, 2968119, 5025866, 3274771, 3567944, 0579939, 6817175, 21057786, 8478537, 19774783, 843378183 ####[facility] [address] [place] [address] Creatinine [Mass/Vol] 0.5 mg/dL Normal 0.5-1.3 [facility] Comment on above: Performed By: #### 7 93574956, 28129907, 8627278, 9630862, 4309077, 9488882, 9179153, 7970690, 97685475, 6265801, 58868926, 924493599 ####[facility] [address] [place] [address] Globulin (S) [Mass/Vol] 3.2 g/dL Normal 1.4-4.0 [facility] Comment on above: Performed By: #### 7 97639580, 73371342, 9418775, 8173858, 7326694, 1422024, 9054898, 2551160, 35365465, 8911392, 35582493, 315316223 ####[facility] [address] [place] [address] Glucose [Mass/Vol] 101 mg/dL Normal 55-199 [facility] Comment on above: Result Comment: If t his glucose result represents a fasting glucose, interpretation should refer to the following reference range: 55-99 mg/dL Performed By: #### 7 63210579, 94022704, 1725928, 2295629, 0613436, 4974114, 2486675, 9259228, 42368122, 6710508, 94529594, 905863674 ####[facility] [address] [place] [address] Potassium [Moles/Vol] 3.6 mmol/L Normal 3.5-5.3 [facility] Comment on above: Performed By: #### 7 25061966, 29551540, 2115552, 2925577, 2792679, 6372306, 4793204, 7730265, 46809711, 1552386, 86947128, 422911985 ####[facility] [address] [place] [address] Protein [Mass/Vol] 6.6 g/dL Normal 6.0-7.8 [facility] Comment on above: Performed By: #### 7 25745716, 29617288, 7327447, 0893078, 2849843, 7888179, 7960756, 7165814, 46822675, 2283558, 89255118, 876773762 ####[facility] [address] [place] [address] Sodium [Moles/Vol] 139 mmol/L Normal 135-145 [facility] Comment on above: Performed By: #### 7 91007384, 32679382, 0536508, 3538929, 9040140, 5107161, 4295315, 9770390, 34432458, 7247100, 14275694, 412189372 ####[facility] [address] [place] [address] Urea nitrogen [Mass/Vol] 19 mg/dL Normal 5-21 [facility] Comment on above: Performed By: #### 7 36158655, 54127428, 8383570, 3370132, 2327755, 1490904, 8995976, 9786780, 09333619, 6769769, 74767409, 077278582 ####[facility] [address] [place] [address] Urea nitrogen/Creatinine [Mass ratio] 38 No Units High 10-20 [facility] Comment on above: Performed By: #### 7 12457162, 88111364, 1842713, 6252763, 8260776, 3244748, 6645274, 2036088, 46774039, 5601248, 29771072, 196748702 ####[facility] [address] [place] [address] Consent for Treatmenton Consent for Treatment [id number] 20 [id number] #1.00CD:127 Normal [facility] Folateon 02-17-2022 Folate [Mass/Vol] 7.6 ng/mL Normal >=6.7 [facility] Comment on above: Performed By: #### 7 52147433, 39560890, 0425803, 3885877, 2657383, 0132326, 5204005, 5029060, 81619991, 1044449, 05580781, 369764420 ####[facility] [address] [place] [address] HEMATOLOGYOrdered By: SYSTEM SYSTEM on 02-17-2022 Basophils/100 [...] 8.1 E9/L Normal 4.0 - 11.0 E9/L [facility] HemeAutoSS PnkH3hcf 02-17-2022 HbA1c (Bld) [Mass fraction] 5.7 % Normal <=5.9 [facility] Comment on above: Performed By: #### 7 71146394, 40227738, 9196941, 6516236, 7331043, 5633562, 5334595, 6434473, 44255432, 8541399, 05364023, 641048103 ####[facility] [address] [place] [address] Ironon 02-17-2022 Iron [Mass/Vol] 33 microgram/dL Low 35-153 [facility] Comment on above: Performed By: #### 7 84305057, 06269003, 3780793, 7972153, 9224124, 6709314, 1504376, 4881502, 31957242, 7386754, 73571526, 632206984 ####[facility] [address] [place] [address] Lipid Panelon 02-17-2022 Cholesterol [Mass/Vol] 173 mg/dL Normal 120-200 [facility] Comment on above: Performed By: #### 7 13273284, 90923092, 3098204, 6362427, 0147194, 2156627, 0771683, 3159128, 13957975, 8786991, 68006425, 358965591 ####[facility] [address] [place] [address] Cholesterol in HDL [Mass/Vol] 42 mg/dL Invalid Interpretation Code [facility] Comment on above: Result Comment: HDL > or equal to 60 mg/dL: Low cardiovascular risk HDL < 40 mg/dL : High cardiovascular risk Performed By: #### 7 61960121, 54642050, 5371800, 4395418, 0423934, 7444695, 3978262, 1039819, 19226039, 6920507, 26985416, 968028605 ####[facility] [address] [place] [address] Cholesterol in LDL [Mass/Vol] 109 mg/dL Normal <=129 [facility] Comment on above: Performed By: #### 7 15370386, 73607368, 8191733, 4780641, 7711119, 2326989, 5153011, 1571117, 28751982, 2924053, 06921283, 552155101 ####[facility] [address] [place] [address] Cholesterol in VLDL [Mass/Vol] 25 mg/dL Normal 7-40 [facility] Comment on above: Performed By: #### 7 94594972, 32247807, 3868267, 0873795, 0840584, 8492098, 7262123, 2823743, 17714884, 8726975, 03077739, 486036614 ####[facility] [address] [place] [address] Triglyceride [Mass/Vol] 127 mg/dL Normal <=149 [facility] Comment on above: Performed By: #### 7 29653171, 76513313, 4472139, 5487250, 9184876, 3450894, 3916709, 5261913, 97228544, 1157357, 73749302, 184559919 ####[facility] [address] [place] [address] Physician Orderon 02-17-2022 Physician Order [id number] #1.00CD:127 Normal [facility] Thyroid IIon 02-17-2022 Free T4 index Calc [Mass/Vol] 9.74 ng/dL Normal 5.90-13.10 [facility] Comment on above: Performed By: #### 7 81201773, 65167430, 0713322, 9675897, 5175287, 3272116, 6781454, 6295683, 44439179, 8134373, 07495350, 926711130 ####[facility] [address] [place] [address] T4 [Mass/Vol] 8.4 microgram/dL Normal 4.6-9.1 [facility] Comment on above: Performed By: #### 7 52572488, 32804562, 9845657, 2091771, 7898643, 5086903, 8060433, 6002114, 94410865, 8255688, 59747067, 430380734 ####[facility] [address] [place] [address] T4 uptake [Mass/Vol] 46.4 % Normal 32.0-48.4 [facility] Comment on above: Performed By: #### 7 72834484, 63865790, 0236995, 2541370, 9810653, 8544451, 7430707, 3046584, 46188409, 7005885, 82357914, 792847392 ####[facility] [address] [place] [address] TSH Qn 3.83 m[IU]/L Normal 0.34-5.60 [facility] Comment on above: Performed By: #### 7 86455096, 15267379, 0717400, 7408236, 1946787, 4596738, 7732068, 0787777, 60575014, 4993718, 60242532, 633276265 ####[facility] [address] [place] [address] Vit B12on 02-17-2022 Cobalamin (Vitamin B12) [Mass/Vol] 271 pg/mL Normal 50-1500 [facility] Comment on above: Performed By: #### 7 81479705, 88687808, 3270397, 5325556, 3816699, 1757413, 7095475, 0097516, 36904202, 4301603, 73895680, 284079763 ####[facility] [address] [place] [address] Vitamin D 25 Hydroxyon 02-17 25-hydroxyvitamin D3 [Mass/Vol] 17.4 ng/mL Low 30.0-100.0 [facility] Comment on above: Result Comment: Vit leonrad D deficiency has been defined as a level of serum 25-OH vitamin D less than 20 ng/mL (1,2) by the [employer] and an Endocrine Society practice guideline. The Endocrine Society further defined vitamin D insufficiency as a level between 21 and 29 ng/mL (2). 1. IOM ([employer] of Medicine). 2010. Dietary reference intakes for calcium and D. [place]: The National Academies Press. 2. Khadra MF, Willa RAHMAN, Jones [place], et al. Evaluation, treatment, and prevention of vitamin D deficiency: an Endocrine Society clinical practice guideline. JCEM. 2010; 96 (7):1911-30. Performed By: #### 7 03165664, 17687318, 4829150, 5731324, 9630097, 1922187, 0869112, 2707834, 53343201, 4634515, 44354623, 900602500 ####[facility] [address] [place] [address] eGFRon 02-17-2022 GFR/1.73 sq M.predicted among blacks MDRD (S/P/Bld) [Vol rate/Area] mL/min/{1.73_m2} Normal >=59 [facility] Comment on above: Order Comment: Order added by Discern Expert. Result Comment: eGFR is race adjusted. AA=. Performed By: #### 7 24325360, 68266657, 1123441, 6688211, 6469431, 3342308, 8093075, 0445303, 58510129, 1074846, 84648554, 719642489 ####[facility] [address] [place] [address] GFR/1.73 sq M.predicted among non-blacks MDRD (S/P/Bld) [Vol rate/Area] mL/min/{1.73_m2} Normal >=59 [facility] Comment on above: Order Comment: Order added by Discern Expert. Result Comment: Marketing Analytics Manager bandar kidney disease could be indicated at eGFR's of less than 60 mL/min/1.73m2. Kidney failure is indicated at less than 15 mL/min/1.73m2. Performed By: #### 7 68315473, 24173800, 0891363, 4596386, 6899964, 4925530, 6494282, 4529194, 02316058, 8880229, 51069122, 056002846 ####[facility] [address] [place] [address] Coding Summary.on 01-18-2022 Coding Summary. CD:[id number] Gh0bWw+PGhlYWQ+PE1FV DFzY70seQHxfR1TF8oMG N6AZTGDNYTWEM3TMK2qi HG8HPitC1YtxdPs DpbfwPSbZE22TYn2JYC5 fFhwJTpybW7owZUbP1w3 QgVfFN65qD58UQtbVIMw PvD1OpCadstrsEAi I3yvDrFstVYdQpa+PHRh YmxlIHdpZHRoPScxMDAl AuUihScjTQ7uBt1mEOMj LWNvbGxhcHNlOiBj k6xmWUWvTUofDN7owJlj F5AmvUD2KVXtr5f3Dt29 dHI+IZYaARK8xXlaAHlq r113FkDzf0niGXT6 qBOoJUsyNKN5A01eb5T7 OGNzAVMoHRP8rSB3nE0o fNynvvflU3DyhSDaVmK1 GRD9oWGvvA6epExi ofbthY7yFjb+P85LUG1P ETYPOT2SCvj2A7SiOhbr dHI+OT75WRLrIX36zLZt eKOdb4xdjFj6EgZz ENCkCFB2dFhwKTmdz1Pt LJQlW98ndIUyf7N6CQNd fAqrjIYfCmYelDB9rH2k ULxhmbhtp7xibeio Zekjw4psbd13hD00J58r QIofFWPyFUX7NXYmKFDw bEplqw4uvY2qFu1+IDxj e6hbt1tdoRr4QqBl QXCnosQzdHiwIHF7l2Hq Ga28Z2TvdQsmt4OxJqw2 io04qZXkq8R3cMJ7PSzg XNOkfF4iLGuaWaC0 RUAcJpVswK08aKNtXJbs Ok1fmJdyoVewIB9mXQTd gwvxDICndK9vFFTywEHz eSrwIY8qWICsypoo h079GxMlTQU5FZDksCXb Q9QoyZ7uWdArQZIqVEVb P5IjsZGyZHwuH378NQrp BuL0HUDsfnNgO0Xz NIGtaGawPqD8v9P3Je5B o0DaupqlYWS5WGalZYW7 NdU8YzLgKuE4R6VoCeh7 WVZanLgvAF6uW1Gb TUVcpaswbyxmtLE3XRLm OSJddC00qDLvKYtpYs8r x7R3k871ZVByUQMjwU00 Dv9yyKubJSNneVVF jK5xjnwdp4ncxzxxPuFc BGZcLJz8ZMh9AADauGot QqGiZOG0SwA5DMN3pPYb eJ6vhCdbcmicaH8k Oyc+B56wxX0iPIB6SIG6 qickHNSwvwYuUO96JC01 C9XnGdewkWDipWI+PGRp drAaeXrnWZ8cZfKb g5sjn5DkLHoaZ8EdHQRa CHqvVbq2WCZgUTW4lUL5 nN6bLGZeWAuwz5H3kTR2 U7AooqNcsy1vp3sf YSWcZFgoJ65huYAlg0O4 SWRflFC1JABcgOiiTiUe dF66Vea+WXBoxEbgt3Nw Gxgek8emk2jbzTm5 IjMwJSIgdmFsaWduPSJ0 w2TeRv91A16xAWnbJVXw BJLlBBAlRFTfcFtaec9l xB8wGb7+PGNvbCB3 hVF0qX0dTLJjUfU7GMbh S812JsGijSXzEwzxo7wp h3urzFj6SaMgUWIecdYv iZejRSH9h9TlIk60 P92jOXwqRSPwRHAuZBSq QABmxHcnwf5tyI3hTd2+ DQ0fb3uhtt40qM95jQL+ OQRpOIO3vGclFVqj EAXajX5gRZzoNvV5RAEt XdIehJ71tIMmAJbhMl9j yTsckLwrWL2cMPWhysgq g878VmQzt0ixIVXn hMGvQDmxGUY0L83oh2F4 HTUhYWLhETU8pTF2eR8k bGlnbjogbGVmdDsgdmVy dHubBGspYYchZ889 IHRvcDsnPlBhdGllbnQg JpMkVAy4T9BzWxk4NHSm gWflAP4xmTDgQGykMo5f gBwckGalFP5vJPLb tpysy894TyEmv4ziXWVf tRNsGDlqRCJ1D35ft1F2 MKWsGNDkPRZ6pPZ7cN4b bGlnbjogbGVmdDsg maYvpWtlHBapYEaeZ874 IHRvcDsnPkJpcnRoIERh rFF1HE62FK59sXJgh4M6 aNT5U9JyYRIvrdcg fnxjqFX5ROOvAONbtG73 Qv9kzIkfMa9tNDLgUNC5 QQIwwJSmN8EgzT7yZlZp RTNkNIEtW5WcsNCk RCdyK950PUsyVrZ8BTSb omUyY4JhREEpwWnxMrW8 w5I5Wu2MY3I5BL08EM78 dZFqf7Q7iWO1P9Ik DUEgrzqrsfbkiKC9PLIs VRQdrE65Zp0elUvfMp8b WGWwKBD0CSFfjCSdJ7Gq gJ4qDpKaUQXlNEIo K2CwiIBlYKlaZ224AEpo JqQ4FBYmddMrW7ZuPDIa dGiqHeC1n8M6Ef7UYHy3 NA54OY92pTYni2B6 zQU9A1CnGFEeytpldiox nYR3EKGtHVPnuN96Cv7b iMbzBz7uRLSqBJX9DTSv jRGlE5WrxH5sAiHe OTQwJDHvU6UhwMYsDKqx P720QVmfDnL2GVSpwfUo F1OiGCTksYaqAyY6t2R4 Bu7VRJSrLI91UEO3 yZE6CT26NT67W3YlQumo dGFibGU+PHRhYmxlIHdp ZHRoPScxMDAlJyBzdHls XM9kKm3wSWPpKCTf mIuoeVAxOtKfi0sbYGKx UTifMU3axEggZ1NyiLI2 SFPsn7l7An24J46kK0To dXA+TUTrpSV7kAA2 fS6hFtDdVuF2WFwjF239 BcIzmISoEqdlf0xwk4zo tAu4DiG6CJPmoeFcoPwz JHA5j8YiXi57L72u IHdpZHRoPSIxNSUiIHZh pQkgqs4qgC3mWa0+PGNv jJR0vHY6mS6uBfSrKkF6 PRbnO306SxQwmKNl Kwdss5ric4tqgXs4ChPa ZILucxAagSglULF6g6Lt Cx69F0KceYmsa7UkNur5 yg46sBFdr7P8iWD5 G6OhCEUafpgqcOQwqOfg FA9iLGSaqwaqZAKigT4y RPXkJ6p9DlNeCwZ5UYju Y4WjwbL0JGObnKAm GSiaRMK1L70se3Y7BYXv LXVwTDZ1jRL7eK8diYjo bjogbGVmdDsgdmVydGlj PDbbSHwrH460ZETw fDnfVTBskC8jRXVkzRCv mNtkKB4bMGYgakwyHvmU BTfRHU9CPERBStXYDREk TDwvdGQ+PHRkIHN0 mZmkBEenVDQgbV8wELLm S8i0VtGjKoK3WDmuR7Ij VRChlbjfWz85sP2gMsMl OhG9WVcsB8VoxvQ8 FVNybJAiFRhgRLX9E15w p4D1NOWuFMTePVB4vVJ3 fE9kdEflgghtcJTywNah dmVydGljYWwtYWxp F042VPHmwTlwNwXpTzXx PyX7YzF3R4NyDhf1RVJs pXqyAD9tqIPdZIqkAs5z iHcpkIalPR4iTWOg eciwZIXiuR8aHWOjrTKp qFzpCT1yMPGopqdhs629 JuLsVIE9DYQxoHVwH2Sf jX8yOyWjIZXyTJXn J2DhzDVkXEnwD625LItm VsY3NSXpgrZnR7XbFQRf qFdtBbT3r1R1Bm78OXUQ ZWFyczwvdGQ+PHRk WVK2yXrhNKtaCKTqcW2a UFGwT2s8JgIhXdA3HMvu F8QrISJzsfraYb68wO0q YfRvUjB4NQyyZ9Tk juQ6NPIhtJSoNGqsIVM9 A88ws6X5LYQhXAVkHXN4 oSD7dG6vcPjbzbgybUEu dDsgdmVydGljYWwt TPoxA829EHOyaDjkCtQh bWFsZTwvdGQ+PHRkIHN0 aDjtHOnePZMrkF4fPESw H4z9LqKlXrH4MVus A3KvJEHvfvtnMv48bL5z WmSrRfK6OCncV0OkzeM2 BYZwjLLdZKhzMJE3X35o j5C5CQCwZZCqGGD6 jHI9nV1kfUrutmwmfLDw dDsgdmVydGljYWwtYWxp O594FDSjtBrcItZxV2Qj cmluZzwvdGQ+PC90 ed74Q0ShMoutOwy4VMSg OND4sQX5xH5xYIKmUOoh r1C3nZJ2L4RzmzIufd7p h9yfHBGiXTwtE87l iEDah6T0FTMslKI4EJGw dPrdNeNwcT85Jmn+PGNv cEgrf9OrTorjy3dpd0vz rAo6QpOmENNfupJk jCbaXQA7k6AxHn69D04h IHdpZHRoPSIzMCUiIHZh yHehew5pyX9eUp3+PGNv uMZ3jUG2uB1gUlYt MpL4OVixP666UlKhnDHt Xrngp9poa0kpnEp0QsPp OUUrbzKtsIzfVKB7g0Mi Cx20R7UciIomj9Qc Qrz3cp42oJMdx6L6fGN1 H0ZjVCZsjposdFSabDkp GO4kHCPjmkejDCXwoN4r SGNqF3k1OrCiQbR7 LVizD7WzxqX8BIExnTRg SOAbqSLYuZ6buswrh5kj yqzeXhDuRWPaTFe9DFz9 LWFsaWduOiBsZWZ0 ZuX6XJQ9oPPbvK3naGev cuoifZ1sMku+NIq3f7vd gQQfJP8yxGP6GN17QF88 fVQvj5T8jCC6M7Nf YPWfltnfgplxrKR5JMWe HJQpmL21Ms2mdZxjRi0t XWQtOTV9TQXcfVDvK4Kl sZ4rQfIsZAIvAQLb C2OuzEPgNVfbL409TJiu JvS3UCNdnrYiA7QzGINk zOgtPpT3j9I9Km6XKS31 PL44SN25tWXje6Y8 oRE3J0XiXXMhsdiiclbd zFI8GHOpKUQarO67By8f vFadIc4iPYIxAWD5OXGr oHCkH9WmvG5bVbIi RCTdTGHoT6PtjIGqLRgy S155GNdeRmM3BEPhvvEr M0JfLFLnqBodNtC4g2O0 Tv2XUu15NK06NO79 nZQpg0S0lVV4B8FaMQWh erfstqotzTI8DEXgECQo zJ55Tp7icAeeCk4rJUYm EMT5YQDlgWAdW3Sg aL0tNyXgTWFyPGJlS8Br pXCpOHmpA534WScsCnN7 NYTbggTeF9KjIXYijFmg YcP8s2K4Or2ULDjq hvr4S5BrUhzxlQN+PC90 DGCwRP28oUHhkPQtw6hd fRw7JtBpTBYpZXN7oMsf MDkho7JfQPVpL40t bGFw (more content not included)... Normal [facility] COVID-19 (MC)on 01-17-2022 SARS-CoV-2 (COVID-19) RNA PAVAN+probe Ql (Resp) Detected Abnormal Not Detected [facility] Comment on above: Result Comment: This test result should be correlated with clinical presentations and medical history by a healthcare provider to determine its clinical significance. This assay was performed by a reverse transcriptase real-time polymerase chain reaction (rt PCR) method on the [employer] system. This test has been authorized only [...] or revoked sooner. Performed By: #### 2 [id number] ####[id number] [place] [address] SARS-CoV-2 (COVID-19) RNA PAVAN+probe Ql (Unsp spec) Pass Normal Pass [facility] Comment on above: Performed By: #### 2 [id number] ####[facility] [address] [place] [address] Specimen source Nom (Unsp spec) Nasal Normal [facility] Comment on above: Performed By: #### 2 [id number] ####[place] [address] ADMITTED TO INTENSIVE CARE UNIT FOR CONDITION OF INTEREST:FIND:PT: Unknown Normal [facility] Comment on above: Performed By: #### 2 [id number] ####[place] [address] EMPLOYED IN A HEALTHCARE SETTING:FIND:PT: Unknown Normal [facility] Comment on above: Performed By: #### 2 [id number] ####[place] [address] FIRST TEST FOR CONDITION OF INTEREST:FIND:PT: Unknown Normal [facility] Comment on above: Performed By: #### 2 [id number] ####[place] [address] HAS SYMPTOMS RELATED TO CONDITION OF INTEREST:FIND:PT: Unknown Normal [facility] Comment on above: Performed By: #### 2 [id number] ####[place] [address] HOSPITALIZED FOR CONDITION OF INTEREST:FIND:PT: Unknown Normal [facility] Comment on above: Performed By: #### 2 [id number] ####[place] [address] STATUS:FIND:PT: Unknown Normal [facility] Comment on above: Performed By: #### 2 [id number] ####[place] [address] RESIDES IN A CONGREGATE CARE SETTING:FIND:PT: Unknown Normal [facility] Comment on above: Performed By: #### 2 [id number] ####[place] [address] Consent for Treatmenton 080 Consent for Treatment [id number]#1.00CD:127 [facility] Physician Orderon 01-17-2022 Physician Order [id number] #1.00CD:127 [facility] Vital Signs Date Time Vital Sign Value Performing Clinician Helen jacome 05-17-2022 13:43-0500 Blood Pressure Location Vinod NILL [facility] [place] 05-17-2022 13:43-0500 Diastolic blood pressure 86 mm[Hg] Vinod NILL [facility] 05-17-2022 13:43-0500 Heart rate 72 /min Vinod NILL [facility] 05-17-2022 13:43-0500 Respiratory rate 16 /min Vinod NILL [facility] 05-17-2022 13:43-0500 Systolic blood pressure 122 mm[Hg] Vinod NILL [facility] Encounters Encounter Date Encounter Type Care Provider Facility Start: 10-26-2022 End: 10-26-[address] ELEUTERIO CARRANZA . Facility:[facility] Start: 09-30-2022 End: 10-01-[address] ELEUTERIO CARRANZA . Facility:[facility] Start: 08-12-2022 End: 08-13-[address] ELEUTERIO CARRANZA . Facility: Start: 07-08-2022 End: 07-09-2022 ambulatory Vinod ISRAEL Facility:[facility] Start: 06-22-2022 End: 06-23-2022 ambulatory Vniod ISRAEL Facility:CD:[id number] Start: 06-20-2022 Encounter for preprocedural laboratory examination DR ELEUTERIO CARRANZA . [facility] Start: 06-17-2022 End: 06-18-2022 Encounter for preprocedural laboratory examination DR ELEUTERIO CARRANZA . Facility:[facility] Start: 06-17-2022 End: 06-18-[address] ELEUTERIO CARRANZA . Facility:[facility] Start: 05-17-2022 End: 05-18-2022 ambulatory [facility] Start: 05-17-2022 End: 05-17-2022 Patient encounter procedure [...] 02-17-2022 End: 02-18-2022 ambulatory Eleuterio Carranza PROVIDER Facility:[facility] Start: 02-17-2022 End: 02-17-2022 Patient encounter procedure Eleuterio Carranza [facility] Start: 01-17-2022 End: 04-18-2022 ambulatory AYAAN BAH Facility:[facility] Start: 01-17-2022 End: 04-17-2022 Recurring AYAAN BAH [facility] Procedures Date Procedure Procedure Detail Performing Clinician Start: 08-10-2011 Colonoscopy Vinod AGARWAL Appendectomy Vinod ISRAEL Cholecystectomy Vinod ISRAEL Colonoscopy Vinod ISRAEL Dilation and curettage Yeison ISRAEL Exploratory laparotomy Yeison ISRAEL Total hysterectomy v ia vaginal approach Vinod FRANCOSunitha Immunizations Immunization Date Immunization Notes Care Provider Fa cility NEGATED: Highlighted row has not occurred!05-17-2022 influenza virus vaccine, unspecified formulation Vinod ISRAEL [facility] [place] Payers Date Payer Category Payer Unknown [id number] 2.16.8 [id number] 1970 Unknown [id number] 2.16.8 40.1.011647.3.579.2.727 1971 Unknown [id number] 2.16.8 40.1.431021.3.579.2.727 1971 Unknown [id number] 2.16.8 40.1.170992.3.579.2.727 1971 Unknown [id number] 2.16.8 40.1.253352.3.579.2.727 1971 Unknown [id number] 2.16.8 40.1.360964.3.579.2.727 1971 Unknown [id number] 2.16.84 0.1.906616.3.579.2.593 1971 Unknown [id number] 2.16.84 0.1.601843.3.579.2.593 1971 Unknown [id number] 2.16.84 0.1.160050.3.579.2.593 1971 Unknown [id number] 2.16.84 0.1.016430.3.579.2.593 1971 Unknown [id number] 2.16.84 0.1.306639.3.579.2.593 1971 Unknown [id number] 2.16.84 0.1.418267.3.579.2.593 1971 Unknown [id number] 2.16.84 0.1.984719.3.579.2.593 1971 Unknown [id number] 2.16.84 0.1.040546.3.579.2.593 1971 Unknown [id number] 2.16.84 0.1.840223.3.579.2.593 1971 Unknown [id number] 2.16.84 0.1.224519.3.579.2.593 1971 Unknown [id number] 2.16.84 0.1.080352.3.579.2.593 1971 Unknown [id number] 2.16.84 0.1.562219.3.579.2.593 1971 Unknown [id number] 2.16.84 0.1.448357.3.579.2.593 1971 Unknown [id number] 2.16.84 0.1.091464.3.579.2.593 1971 Unknown [id number] 2.16.84 0.1.389751.3.579.2.593 1958 Medicaid [id number] 1958 Self-pay 1958 Unknown [id number] Social History Date Type Detail Facility [facility] Comment on above: denies Sex Assigned At Female [facility] Tobacco smoking status No Smokin g Status Entered [facility] Start: 05-17-2022 Tobacco smoking status Heavy t obacco smoker (finding) [facility] [place] Tobacco smoking status Never [facility] [place] Functional Status Date Assessment Result Facility 05-17-2022 Functional Status N/A [facility] Clinical Note 06-22-2022 Note Date [...] pathology results. CC: Eleuterio Carranza M.D. [facility] Clinical Note 05-17-2022 Note Date & [...] vaccine, inactivated - Not Given Patient Refuses [facility] Comment on above: Result Comment: Elec tronically Signed By: Vinod ISRAEL MD\.br\Date and Time Signed: 05/17/22 14:41 EST Evaluation + Plan note 02-17-2022 Note Date & Type Note Facility 02-17-2022 Evaluation + Plan note Diagnostic Tests PendingInsulin Level Total 02/17/22 [facility] Evaluation + Plan note Note Date & Type Note Facility Evaluation + Plan note Future Appointments Appointment Date:04/29/2022 01:00:00 PM Scheduled Provider:Vinod ISRAEL MD Location:[facility] Appointment Type:[address] Hospital course Narrative Note Date & Type Note Facility Hospital course Narrative No data available for this section [facility] Hospital Discharge instructions Note Date & Type Note Facility Hospital Discharge instructions No data available for this section [facility] Progress note Note Date & Type Note Facility Progress note No data available for this section [facility] Summary Purpose Family History No Family History Records FoundNo Family History Records Found Advance Directives No Advanced Directives Records FoundNo Advanced Directives Records Found Additional Source Comments Care Team (unrecognized sect ion and content) Personnel Name: Eleuterio Carranza MD Address: [address] [place] [address] Personnel Name: Eleuterio Carranza MD Address: Address: [address] [place] [address] Personnel Name: Eleuterio Carranza MD Address: Address: [facility] [place], [place] [address] INFORMATION SOURCE (unrecogn ized section and content) DATE CREATED AUTHOR [facility]/14/2022 [facility] DATE CREATED AUTHOR AUTHOR'S HERON ATION 10/27/2022 [facility] FOR RECORDS PERTAINING TO PATIENTS WHO [...] BE BASED ON THE PRIMARY CLINICAL RECORDS. [facility]. provides no warranty or guarantee of the accuracy or completeness of information in this document.
[2024-02-27 12:47] LABS: Basophils Absolute Auto 0.1 10^3/uL (0.0-0.1); Basophils Percent Auto 0.7 % (0.2-2.0); Eosinophils Absolute Auto 0.3 10^3/uL (0.0-0.7); Eosinophils Percent Auto 1.6 % (0.9-7.0); Hematocrit 39.1 % (36.0-48.0); Hemoglobin 12.4 g/dL (12.0-16.0); Immature Granulocytes Abs Auto 0.27 10^3/uL (0.00-0.03); Immature Granulocytes Pct Auto 1.7 % (0.0-0.5); Lymphocytes Absolute Auto 2.4 10^3/uL (1.2-3.8); Lymphocytes Percent Auto 15.2 % (20.5-60.0); Mean Corpuscular HGB Conc 31.7 g/dL (29.9-35.2); Mean Corpuscular Hemoglobin 27.9 pg (26.7-34.0); Mean Corpuscular Volume 87.9 fL (81.0-99.0); Mean Platelet Volume 10.9 fL (9.5-13.5); Monocytes Absolute Auto 0.9 10^3/uL (0.3-0.8); Monocytes Percent Auto 5.5 % (1.7-12.0); Neutrophils Absolute Auto 11.8 10^3/uL (1.4-6.5); Neutrophils Percent Auto 75.3 % (43.0-75.0); Platelet Count 328 10^3/uL (150-450); Red Blood Count 4.45 10^6/uL (4.20-5.40); Red Cell Distribution Width 15.2 % (11.0-15.0); White Blood Count 15.7 10^3/uL (4.0-11.0)
[2024-02-27 13:06] LABS: Erythrocyte Sedimentation Rate 71 mm/hr (<=30)
[2024-02-27 13:21] LABS: Alanine Aminotransferase 25 U/L (14-59); Albumin Globulin Ratio 0.8; Albumin Level 3.1 g/dL (3.4-5.0); Alkaline Phosphatase 119 U/L (46-116); Aspartate Amino Transferase 13 U/L (15-37); BUN Creatinine Ratio 24.1; Bilirubin Total 0.3 mg/dL (0.2-1.0); C Reactive Protein 3.25 mg/dL (<=0.50); Calcium 9.5 mg/dL (8.5-10.1); Carbon Dioxide 29.3 mmol/L (21.0-32.0); Chloride 101 mmol/L (98-107); Estimated GFR (African America >60 (>=60); Estimated GFR (Non-African Ame >60 (>=60); Globulin 4.1 g/dL; Glucose 117 mg/dL (74-106); Lactate Dehydrogenase 139 U/L (81-234); Potassium 4.3 mmol/L (3.5-5.1); Sodium 136 mmol/L (136-145); Total Protein 7.2 g/dL (6.4-8.2)
== END 2024-02-27 12:03 | disposition home or self-care (01) ==
LOC: LAB 12:02
PROVIDERS: PCP Family Medicine; Visit Provider Internal Medicine Hematology & Oncology
DX: N32.89 Other specified disorders of bladder (principal); D72.829 Elevated white blood cell count, unspecified; D64.9 Anemia, unspecified
CPT/HCPCS: 36415; 80053; 80061; 83615; 84439; 84443; 85025; 85652; 86140

== ENCOUNTER 2024-02-27 12:03 | Outpatient (OUT) | payer OTHER, SELFPAY ==
[2024-02-27 13:47] LABS: Chol HDL Ratio 3.6; Cholesterol 175 mg/dL (<=200); HDL Cholesterol 49 mg/dL (40-60); LDL Cholesterol Calculated 99.4 mg/dL; Thyroid Stimulating Hormone 2.312 uIU/mL (0.358-3.740); Triglycerides 133 mg/dL (<=150); VLDL CHOLESTEROL 26.6 mg/dL
[2024-02-27 16:36] LABS: Free T4 1.21 ng/dL (0.76-1.46)
== END 2024-02-27 12:04 | disposition home or self-care (01) ==
LOC: LAB 12:04
PROVIDERS: Internal Medicine Hematology & Oncology; PCP Family Medicine; Visit Provider Family Medicine
DX: N32.89 Other specified disorders of bladder (principal)
CPT/HCPCS: 36415; 80061; 84439; 84443

== ENCOUNTER 2024-04-23 07:29 | Outpatient (RCR) | payer OTHER, SELFPAY ==
--- OUTSIDE RECORDS SUMMARY | 2024-04-23 07:32 | XMS_ITS | CCD ---
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 Role Phone Eleuterio Carranza Primary Care Physician HOY ., DR MCCLELLAN Primary Care Unavailable [...] Unavailable HOY ., DR MCCLELLAN Attending Unavailable STOCKTON, DR MOISE Diaz Consulting Unavailable NILL, Nica Odonnell Attending Unavailable Eleuterio Carranza Referring Unavailable Allergies Allergy Classification Reported Allergen(s) Allergy Type Date of Onset Reaction(s) Facility (3 sources) venlafaxine; Translations: [venlafaxine] Drug Allergy Dizziness (finding) General Surgery [place] (1 source) venlafaxine Drug Allergy [facility] Repository Medications Current Medications Medication Drug Class(es) Dates Sig (Normalized) Sig (Original) acetaminophen 325 mg / HYDROcodone bitartrate 5 mg oral tablet (2 sources) Opioid Agonist Start: 03-06-2017 [place] 325 mg-5 mg oral tablet See Instructions, for pain, 12 tab(s), Refill(s) 0, 1-2 tab(s) Oral q4-6hr not to exceed 3000 mg acetaminophen per day Start Date: 03/06/17 Status: Ordered 12 hr buPROPion hydrochloride 200 mg extended release oral tablet (2 sources) Aminoketone Start: 03-01-2024 take 1 tablet by mouth twice daily Wellbutrin SR 200 mg oral tablet, extended release 200 mg = 1 tab(s), Oral, BID, Refills(s) 0 Start Date: 03/01/24 Status: Ordered Start: 04-25-2022 take 1 tablet by eusebio th once daily Wellbutrin XL 150 mg/24 hours [...] Ordered Dulera 100 mcg-5 mcg/inh inhalation aerosol (2 sources) Start: 04-25-2022 take 2 puff(s) by inhalation twice daily Dulera 100 mcg-5 mcg/inh inhalation aerosol 2 puff(s), Inhalation, BID, Refill(s) 0 Start Date: 04/25/22 Status: Ordered Fish Oils (2 sources) Start: 03-06-2017 Fish Oil Oral, Refill(s) 0 Start Date: 03/06/17 Status: Ordered hydrocortisone 10 mg oral tablet (1 source) Corticosteroid Start: 03-01-2024 take 1 tablet by mouth once daily hydrocortisone 10 mg Tab 10 mg = 1 tab(s), Oral, Daily, Refills(s) 0 Start Date: 03/01/24 Status: Ordered hyoscyamine sulfate 0.125 mg oral tablet (2 sources) Start: 04-25-2022 take 1-2 tablets under the [...] Print Requisition Start Date: 02/07/13 Status: Ordered levothyroxine sodium 0.05 mg oral tablet (1 source) l-Thyroxine Start: 03-01-2024 take 1 tablet by mouth once daily levothyroxine 50 mcg (0.05 mg) Tab 50 mcg = 1 tab(s), Oral, Daily, Refills(s) 0 Start Date: 03/01/24 Status: Ordered lisinopril 30 mg oral tablet (1 source) Angiotensin Converting Enzyme Inhibitor Start: 03-01-2024 take 1 tablet by mouth once daily lisinopril 30 mg Tab 30 mg = 1 tab(s), Oral, Daily, Refills(s) 0 Start Date: 03/01/24 Status: Ordered meloxicam 15 mg oral tablet (1 source) Nonsteroidal Anti-inflammatory Drug Start: 03-01-2024 take 1 tablet by mouth once daily meloxicam 15 mg Tab 15 mg = 1 tab(s), Oral, Daily, Refills(s) 0 Start Date: 03/01/24 Status: Ordered Multivitamins and Minerals (4 sources) Start: 03-06-2017 Multivitamins and Minerals Refill(s) 0 Start Date: 03/06/17 Status: Ordered naproxen 500 mg oral tablet (4 sources) Nonsteroidal Anti-inflammatory Drug Start: 03-06-2017 take 1 tablet by mouth twice daily Naprosyn 500 mg Tab 500 mg = 1 tab(s), Oral, BID, # 20 tab(s), Refills(s) 0, Pharmacy: [facility] 1984 Start Date: 07/27/18 Status: Ordered Prilosec (2 sources) Proton Pump Inhibitor Start: 03-06-2017 Prilosec Oral, Daily, Refills(s) 0 Start Date: 03/06/17 Status: Ordered pantoprazole 40 mg delayed release oral tablet (2 sources) Proton Pump Inhibitor Start: 04-25-2022 take 1 tablet by mouth once daily Pantoprazole [address] Tab 40 mg = 1 tab(s), Oral, Daily, Refills(s) 0 Start Date: 04/25/22 Status: Ordered Probiotic Formula (2 sources) Start: 03-06-2017 take 1 capsule by mouth once daily Probiotic Formula 1 cap(s), Oral, Daily, Refill(s) 0 Start Date: 03/06/17 Status: Ordered simvastatin 20 mg oral tablet (1 source) HMG-CoA Reductase Inhibitor Start: 03-01-2024 take 1 tablet by mouth once daily in the evening simvastatin 20 mg Tab 20 mg = 1 tab(s), Oral, qPM, Refills(s) 0 Start Date: 03/01/24 Status: Ordered Problems Active Problems Problem Classification Problem Date Documented Date Episodic/Chronic Allergic reactions (2 sources) 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 Anxiety disorders (3 sources) Posttraumatic stress disorder; Translations: [Anxiety] 04-25-2022 Chronic Asthma (1 source) Unspecified asthma with (acute) exacerbation; Translations: [UNS ASTHMA W/ACUTE EXACERBATION] Onset: 10-28-19 Chronic Conditions associated with dizziness or vertigo (2 sources) Meniere's disease 04-25-2022 Chronic Deficiency and other anemia (1 source) Anemia, unspecified; Translations: [ANEMIA UNSPECIFIED] Onset: 08-16-19 Episodic Diabetes mellitus without complication (1 source) Other abnormal glucose; Translations: [OTHER ABNORMAL GLUCOSE] Onset: 08-16-19 Episodic Disorders of lipid metabolism (1 source) Hypercholesterolemia 03-01-2024 Chronic Esophageal disorders (1 source) Gastroesophageal reflux disease 03-01-2024 Chronic Essential hypertension (5 sources) Essential (primary) hypertension; Translations: [Hypertensive disorder] Onset: 04-08-20 Chronic Hemorrhoids (2 sources) Hemorrhoids 04-25-2022 Episodic Lymphadenitis (1 source) Generalized enlarged lymph nodes; Translations: [GENERALIZED ENLARGED LYMPH NODES] Onset: 08-16-19 Episodic Mood disorders (1 source) Depressive disorder 03-01-2024 Chronic Nutritional deficiencies (1 source) Vitamin D deficiency, unspecified; Translations: [VITAMIN D DEFICIENCY UNSPECIFIED] Onset: 08-16-19 Chronic Osteoarthritis (1 source) Bilateral primary osteoarthritis of knee; Translations: [BILATERAL PRIM OSTEOARTHRITIS KNEE] Onset: 04-01-20 Chronic Other aftercare (1 source) 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; Translations: [OTH SURGICAL INSTRUMENT REPAIR SPECIALIST CURRENT DRUG THERAPY] Onset: 10-28-19 Episodic Other and unspecified benign neoplasm (2 sources) History of polyp of colon; Translations: [Personal history of colonic polyps] Onset: 05-17-20 Episodic Other and unspecified benign neoplasm (1 source) Benign neoplasm of sigmoid colon 07-08-2022 Episodic Other endocrine disorders (1 source) 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 Other gastrointestinal disorders (2 sources) Irritable bowel syndrome 04-25-2022 Chronic Other infections; including parasitic (2 sources) History of Helicobacter pylori infection 04-25-2022 Episodic Other lower respiratory disease (3 sources) Shortness of breath; Translations: [SHORTNESS OF BREATH] Onset: 10-27-19 Episodic Other non-traumatic joint disorders (5 sources) Pain in unspecified joint; Translations: [PAIN IN UNSPECIFIED JOINT] Onset: 06-20-19 Episodic Other nutritional; endocrine; and metabolic disorders (2 sources) Body mass index 40+ - severely obese 05-17-2022 Chronic Other nutritional; endocrine; and metabolic disorders (1 source) Obese class III 03-01-2024 Chronic Other nutritional; endocrine; and metabolic disorders (1 source) Overweight; Translations: [OVERWEIGHT] Onset: 08-16-19 Episodic Other skin disorders (1 source) Senile hyperkeratosis; Translations: [Other seborrheic keratosis] Onset: 03-05-20 Episodic Other upper respiratory infections (5 sources) Streptococcal pharyngitis; Translations: [STREPTOCOCCAL PHARYNGITIS] Onset: 08-16-19 Episodic Residual codes; unclassified (2 sources) Sleep apnea 04-25-2022 Chronic Residual codes; unclassified (1 source) Family history of malignant neoplasm of digestive organ; Translations: [Family history of malignant neoplasm of digestive organs] Onset: 05-17-20 Episodic Residual codes; unclassified (2 sources) Family history of cancer of colon 05-17-2022 Episodic Screening and history of mental health and substance abuse codes (3 sources) H/O: anxiety state; Translations: [H/O: depression] Onset: 10-28-1904-25-2022 Episodic Spondylosis; intervertebral disc disorders; other back problems (5 sources) Radiculopathy, lumbar region; Translations: [Lumbar radiculopathy] Onset: 05-06-20 Episodic Substance-related disorders (1 source) Nicotine dependence, cigarettes, uncomplicated; Translations: [NICOTINE DEPEND CIGARETTES UNCOMP] Onset: 06-28-19 Chronic Thyroid disorders (1 source) Hypothyroidism 03-01-2024 Chronic Unclassified (1 source) CONTACT W/AND (SUSP) EXPOS COVID-19; Translations: [CONTACT W/AND (SUSP) EXPOS COVID-19] Onset: 06-20-19 Unclassified (1 source) Seborrheic keratosis 03-05-2024 Past or Other Problems Problem Classification Problem [...] HISTORY OTH SPEC CONDITION] Onset: 05-21-2022 Episodic Syncope (4 sources) Syncope and collapse; Translations: [SYNCOPE AND COLLAPSE] Onset: 03-08-2022 Episodic Viral infection (1 source) Disease caused by 2019-nCoV; Translations: [COVID-19] Results Test Name Value Interpretation Reference Range Facility Ambulatory Visit Summaryon 0 03-05-2024 Ambulatory Visit Summary Ambulatory Visit Summary SYLVIE ALTAMIRANO Sunitha :1970 Visit Date:03/05/2024 Ambulatory Visit Instructions Your Diagnosis Seborrheic keratoses Your Care Team Attending Physician - QI ARGUETA, Nica Odonnell Primary Care Physician - Tere ARGUETA, Eleuterio Referring Physician - Eleuterio Carranza MD This Is Your Medications List Contact prescribing physician if questions or concerns buPROPion (Wellbutrin SR 200 mg oral tablet, extended release) formoterol-mometason e (Dulera 100 mcg-5 mcg/inh inhalation aerosol) hydrocortisone (hydrocortisone 10 mg Tab) hyoscyamine (Levsin 0.125 mg SL Tab) levothyroxine (levothyroxine 50 mcg (0.05 mg) Tab) lisinopril (lisinopril 30 mg Tab) meloxicam (meloxicam 15 mg Tab) multivitamin with minerals (Multivitamins and Minerals) pantoprazole (Pantoprazole [address] Tab) simvastatin (simvastatin 20 mg Tab) Procedures Performed Colonoscopy (06/22/2022), Colonoscopy (08/10/2011), Appendectomy, Cholecystectomy, Colonoscopy, Colonoscopy, Dilation and curettage, Exploratory laparotomy, Exploratory laparotomy, Vaginal total hysterectomy. Discharge Vitals Heart Rate (Peripheral) 114 Respiratory Rate 16 Blood Pressure 134/81 Height 160 cm Height 63 in Weight 134.8 kg Weight 296.56 lb BMI 52.66 Medications What How Much When Instructions Unchanged buPROPion (Wellbutrin SR 200 mg oral tablet, extended release) 1 Tablets By Mouth 2 times a day Contact prescribing physician if questions or concerns Unchanged formoterol-mometason e (Dulera 100 mcg-5 mcg/ inh inhalation aerosol) 2 Puffs Inhalation 2 times a day Contact prescribing physician if questions or concerns Unchanged hydrocortisone (hydrocortisone 10 mg Tab) 1 Tablets By Mouth Every day Contact prescribing physician if questions or concerns Unchanged hyoscyamine (Levsin 0.125 mg SL Tab) 1-2 tabs Sublingual 4 times a day as needed for abdominal cramping Contact prescribing physician if questions or concerns Unchanged levothyroxine (levothyroxine 50 mcg (0.05 mg) Tab) 1 Tablets By Mouth Every day Contact prescribing physician if questions or concerns Unchanged lisinopril (lisinopril 30 mg Tab) 1 Tablets By Mouth Every day Contact prescribing physician if questions or concerns Unchanged meloxicam (meloxicam 15 mg Tab) 1 Tablets By Mouth Every day Contact prescribing physician if questions or concerns Unchanged multivitamin with minerals (Multivitamins and Minerals) Contact prescribing physician if questions or concerns Unchanged pantoprazole (Pantoprazole [address] Tab) 1 Tablets By Mouth Every day Contact prescribing physician if questions or concerns Unchanged simvastatin (simvastatin 20 mg Tab) 1 Tablets By Mouth Once a day (in the evening) Contact prescribing physician if questions or concerns Allergies Effexor (Dizziness) Problems Ongoing - Any problem that you are currently receiving treatment for. Adrenal cortical hypofunction Anxiety BMI 50.0-59.9, adult Class 3 obesity Depression Dyshidrotic eczema Family history of colon cancer GERD (gastroesophageal reflux disease) Hemorrhoids History of Helicobacter pylori infection Hypercholesterolemia Hypertension Hypothyroidism IBS (irritable bowel syndrome) Lumbar radiculopathy Meniere's disease PTSD (post-traumatic stress disorder) Seborrheic keratoses Sleep apnea Tubular adenoma of colon Patient Survey You may receive a survey via text or e-mail asking about your office visit. Please share your experience with us by completing your survey. We appreciate your feedback and thank you for choosing us for your care. Normal [facility] XR CHEST 1 Von 10-26-2022 XR CHEST [...] PILO ELIAS Date: 2022-10-26 19:03 Normal [facility] CULTURE BLOODon 09-30-2022 Microscopic examination of blood, culture Culture Observations: NO GROWTH AT 5 DAYS. Normal [facility] Comment on above: Performed By: #### T 7, TSH, LIPID, CMP #### [facility] [address] [address] [address] Sona Cruz Microscopic examination of blood, culture Culture Observations: NO GROWTH AT 5 DAYS. Normal [facility] Comment on above: Performed By: #### T 7, TSH, LIPID, CMP #### [facility] [address] [place], [place] [address] Dr. Sona Cruz CULTURE URINEon 09-30-2022 CULTURE URINE Culture Observations: NO GROWTH. Normal [facility] Comment on above: Performed By: #### T 7, TSH, LIPID, CMP #### [facility] [address] [place], [place] [address] Dr. Sona Cruz UA RANDOM W/MICROSCOPICon BACTERIA NONE SEEN Normal NONE SEEN [facility] Comment on above: Performed By: #### T 7, TSH, LIPID, CMP #### [facility] [address] [address] [address] Sona Cruz Bilirubin Ql (U) Negative Normal NEGATIVE [facility] Comment on above: Performed By: #### T 7, TSH, LIPID, CMP #### [facility] [address] [place] [address] Dr. Sona Cruz CAST NONE SEEN Normal NONE SEEN [facility] Comment on above: Performed By: #### T 7, TSH, LIPID, CMP #### [facility] [address] [place] [address] Dr. Sona Cruz Clarity (U) CLEAR Normal CLEAR [facility] Comment on above: Performed By: #### T 7, TSH, LIPID, CMP #### [facility] [address] [place] [address] Dr. Sona Cruz Color (U) LT. YELLOW Normal YELLOW [facility] Comment on above: Performed By: #### T 7, TSH, LIPID, CMP #### [facility] [address] [place] [address] Dr. Sona Cruz Crystals LM Nom (Urine sed) SEEN Abnormal NONE SEEN [facility] Comment on above: Performed By: #### T 7, TSH, LIPID, CMP #### [facility] [address] [place] [address] Dr. Sona Cruz Epithelial cells LM Ql (Urine sed) FEW Abnormal NONE SEEN /RARE [facility] Comment on above: Performed By: #### T 7, TSH, LIPID, CMP #### [facility] [address] [place] [address] Dr. Sona Cruz Glucose Ql (U) Negative Normal NEGATIVE The [facility] Comment on above: Performed By: #### T 7, TSH, LIPID, CMP #### [facility] [address] [place] [address] Dr. Sona Cruz Hemoglobin Ql (U) Negative Normal NEGATIVE The [facility] Comment on above: Performed By: #### T 7, TSH, LIPID, CMP #### [facility] [address] [place] [address] Dr. Sona Cruz Ketones Ql (U) Negative Normal NEGATIVE The [facility] Comment on above: Performed By: #### T 7, TSH, LIPID, CMP #### [facility] [address] [address] [address] Sona Cruz LEUKOCYTES Negative Normal NEGATIVE [facility] Comment on above: Performed By: #### T 7, TSH, LIPID, CMP #### [facility] [address] [address] [address] Sona Cruz MUCOUS NONE SEEN Normal NONE SEEN [facility] Comment on above: Performed By: #### T 7, TSH, LIPID, CMP #### [facility] [address] [address] [address] Sona Cruz Nitrite Ql (U) Negative Normal NEGATIVE [facility] Comment on above: Performed By: #### T 7, TSH, LIPID, CMP #### [facility] [address] [place] [address] Dr. Sona Cruz pH (U) 5.5 [pH] Normal 5-9 [facility] Comment on above: Performed By: #### T 7, TSH, LIPID, CMP #### [facility] [address] [place] [address] Dr. Sona Cruz RBC 0-2 Normal 0-2 [facility] Comment on above: Performed By: #### T 7, TSH, LIPID, CMP #### [facility] [address] [address] [address] Sona Cruz SPEC GRAVITY 1.025 Normal 1.005-<=1.025 [facility] Comment on above: Performed By: #### T 7, TSH, LIPID, CMP #### [facility] [address] [address] [address] Sona Cruz UA PROTEIN Negative Normal NEGATIVE/ TRACE [facility] Comment on above: Performed By: #### T 7, TSH, LIPID, CMP #### [facility] [address] [place] [address] Dr. Sona Cruz Urobilinogen Qn (U) 0.2 {Dayanna'U}/dL Normal 0.2 - 1. 0 [facility] Comment on above: Performed By: #### T 7, TSH, LIPID, CMP #### [facility] [address] [place] [address] Dr. Sona Cruz WBC 0-2 Abnormal NONE SEEN [facility] Comment on above: Performed By: #### T 7, TSH, LIPID, CMP #### [facility] [address] [address] [address] Sona Cruz VITAMIN B12on 09-30-2022 Cobalamin (Vitamin B12) [Mass/Vol] 383.0 pg/mL Normal 193.0-986.0 [facility] Comment on above: Performed By: #### V ITB12 #### [facility] [address] [place] [address] Dr. Sona Cruz DANIELLE-GARCIA VIRUS (EBV) AB PROFILEon 08-15-2022 EBV Ab VCA, IgG 71.8 U/mL Critically high 0.0-17.9 [facility] Comment on above: Result Comment: Nega tive <18.0 Equivocal 18.0 - 21.9 Positive >21.9 Performed By: #### T 7, TSH, LIPID, CMP #### [facility] [address] [place] [address] Dr. Sona Cruz EBV Ab VCA, IgM <36.0 Normal 0.0-35.9 [facility] Comment on above: Result Comment: Nega tive <36.0 Equivocal 36.0 - 43.9 Positive >43.9 Performed By: #### T 7, TSH, LIPID, CMP #### [facility] [address] [place] [address] Dr. Sona Cruz EBV Nuclear Antigen Ab, IgG 146.0 U/mL Critically high 0.0-17.9 [facility] Comment on above: Result Comment: Nega tive <18.0 Equivocal 18.0 - 21.9 Positive >21.9 Performed By: #### T 7, TSH, LIPID, CMP #### [facility] [address] [place] [address] Dr. Sona Cruz Interpretation: Comment Normal [facility] Comment on above: Result Comment: EBV [...] #### T 7, TSH, LIPID, CMP #### [facility] [address] [place] [address] Dr. Sona Cruz INSULINon 08-13-2022 Insulin 18.5 uIU/mL Normal 2.6-24.9 [facility] Comment on above: Performed By: #### T 7, TSH, LIPID, CMP #### [facility] [address] [place] [address] Dr. Sona Cruz CBC AUTO DIFFon 08-12-2022 BASO # 0.1 103/ul Normal 0.0-0.1 [facility] Comment on above: Performed By: #### T 7, TSH, LIPID, CMP #### [facility] [address] [address] [address] Sona Cruz Basophils/100 WBC (Bld) 0.5 % Normal 0.2-2.0 [facility] Comment on above: Performed By: #### T 7, TSH, LIPID, CMP #### [facility] [address] [address] [address] Sona Cruz EO # 0.1 103/ul Normal 0.0-0.7 [facility] Comment on above: Performed By: #### T 7, TSH, LIPID, CMP #### [facility] [address] [place] [address] Dr. Sona Cruz Eosinophils/100 WBC (Bld) 0.9 % Normal 0.9-7.0 [facility] Comment on above: Performed By: #### T 7, TSH, LIPID, CMP #### [facility] [address] [place] [address] Dr. Sona Cruz Erythrocyte distribution width (RBC) [Ratio] 14.4 % Normal 11.0-15.0 [facility] Comment on above: Performed By: #### T 7, TSH, LIPID, CMP #### [facility] [address] [place] [address] Dr. Sona Cruz Hematocrit (Bld) [Volume fraction] 41.8 % Normal 36.0-48.0 [facility] Comment on above: Performed By: #### T 7, TSH, LIPID, CMP #### [facility] [address] [place] [address] Dr. Sona Cruz Hemoglobin (Bld) [Mass/Vol] 14.0 g/dL Normal 12.0-16.0 [facility] Comment on above: Performed By: #### T 7, TSH, LIPID, CMP #### [facility] [address] [place] [address] Dr. Sona Cruz IG # 0.12 10e3/ul Critically high 0.00-0.03 [facility] Comment on above: Performed By: #### T 7, TSH, LIPID, CMP #### [facility] [address] [place] [address] Dr. Sona Cruz IG % 1.0 % Critically high 0.0-0.5 [facility] Comment on above: Performed By: #### T 7, TSH, LIPID, CMP #### [facility] [address] [place] [address] Dr. Sona Cruz LYMPH # 1.8 103/ul Normal 1.2-3.8 [facility] Comment on above: Performed By: #### T 7, TSH, LIPID, CMP #### [facility] [address] [place] [address] Dr. Sona Cruz Lymphocytes/100 WBC (Bld) 14.4 % Critically low 20.5-60.0 [facility] Comment on above: Performed By: #### T 7, TSH, LIPID, CMP #### [facility] [address] [place] [address] Dr. Sona Cruz MANUAL DIFF REQ NO Normal [facility] Comment on above: Performed By: #### T 7, TSH, LIPID, CMP #### [facility] [address] [place] [address] Dr. Sona Cruz MCH (RBC) [Entitic mass] 30.0 pg Normal 26.7-34.0 [facility] Comment on above: Performed By: #### T 7, TSH, LIPID, CMP #### [facility] [address] [place] [address] Dr. Sona Cruz MCHC (RBC) [Mass/Vol] 33.5 g/dL Normal 29.9-35.2 [facility] Comment on above: Performed By: #### T 7, TSH, LIPID, CMP #### [facility] [address] [place] [address] Dr. Sona Cruz MCV (RBC) [Entitic vol] 89.5 fL Normal 81.0-99.0 [facility] Comment on above: Performed By: #### T 7, TSH, LIPID, CMP #### [facility] [address] [place] [address] Dr. Sona Cruz MONO # 0.8 103/ul Normal 0.3-0.8 [facility] Comment on above: Performed By: #### T 7, TSH, LIPID, CMP #### [facility] [address] [place] [address] Dr. Sona Cruz Monocytes/100 WBC (Bld) 6.6 % Normal 1.7-12.0 [facility] Comment on above: Performed By: #### T 7, TSH, LIPID, CMP #### [facility] [address] [place] [address] Dr. Sona Cruz NEUT # 9.5 103/ul Critically high 1.4-6.5 [facility] Comment on above: Performed By: #### T 7, TSH, LIPID, CMP #### [facility] [address] [place] [address] Dr. Sona Cruz Neutrophils/100 WBC (Bld) 76.6 % Critically high 43.0-75.0 [facility] Comment on above: Performed By: #### T 7, TSH, LIPID, CMP #### [facility] [address] [place] [address] Dr. Sona Cruz Platelet mean volume (Bld) [Entitic vol] 10.5 fL Normal 9.5-13.5 [facility] Comment on above: Performed By: #### T 7, TSH, LIPID, CMP #### [facility] [address] [place] [address] Dr. Sona Cruz PLT 261 103/ul Normal 150-450 [facility] Comment on above: Performed By: #### T 7, TSH, LIPID, CMP #### [facility] [address] [place] [address] Dr. Sona Cruz RBC 4.67 106/ul Normal 4.20-5.40 [facility] Comment on above: Performed By: #### T 7, TSH, LIPID, CMP #### [facility] [address] [place] [address] Dr. Sona Cruz WBC 12.4 103/ul Critically high 4.0-11.0 [facility] Comment on above: Performed By: #### T 7, TSH, LIPID, CMP #### [facility] [address] [place] [address] Dr. Sona Cruz CULTURE BLOODon 08-12-2022 Microscopic examination of blood, culture Culture Observations: NO GROWTH AT 5 DAYS. Isolate 1 [id number] Normal [facility] Comment on above: Performed By: #### T 7, TSH, LIPID, CMP #### [facility] [address] [place] [address] Dr. Sona Cruz Microscopic examination of blood, culture Culture Observations: NO GROWTH AT 5 DAYS. Isolate 1 [id number] Normal [facility] Comment on above: Performed By: #### T 7, TSH, LIPID, CMP #### [facility] [address] [place] [address] Dr. Sona Cruz CULTURE URINEon 08-12-2022 CULTURE URINE Culture Observations: NO GROWTH. Normal [facility] Comment on above: Performed By: #### U RCX #### [facility] [address] [place] [address] Dr. Sona Cruz FREE THYROXINE INDEX T7on FTI 3.65 Normal 1.30-4.50 [facility] Comment on above: Performed By: #### T 7, TSH, LIPID, CMP #### [facility] [address] [address] [address] Sona Cruz T3U 38.0 % Normal 30.0-39.0 [facility] Comment on above: Performed By: #### T 7, TSH, LIPID, CMP #### [facility] [address] [address] [address] Sona Cruz T4 [Mass/Vol] 9.60 ug/dL Normal 4.80-13.90 [facility] Comment on above: Performed By: #### T 7, TSH, LIPID, CMP #### [facility] [address] [place] [address] Dr. Sona Cruz GLYCOHEMOGLOBIN A1Con 2022 ADA RECOMMENDATION SEE BELOW Normal [facility] Comment on above: Result Comment: ADA RECOMMENDED LIMIT 4.0 - 6.0 ADA THERAPEUTIC TARGET < 7.0 ACTION SUGGESTED > 7.0 Performed By: #### T 7, TSH, LIPID, CMP #### [facility] [address] [address] [address] Sona Cruz Glucose [Mass/Vol] 111 mg/dL Normal [facility] Comment on above: Performed By: #### T 7, TSH, LIPID, CMP #### [facility] [address] [address] [address] Sona Cruz HbA1c (Bld) [Mass fraction] 5.5 % Normal 4.5-6.2 [facility] Comment on above: Performed By: #### T 7, TSH, LIPID, CMP #### [facility] [address] [address] [address] Sona Cruz IRONon 08-12-2022 Iron [Mass/Vol] 71.0 ug/dL Normal 50.0-170.0 [facility] Comment on above: Performed By: #### T 7, TSH, LIPID, CMP #### [facility] [address] [address] [address] Sona Cruz LIPID PROFILEon 08-12-2022 CHOL-HDL RATIO NORM SEE BELOW Normal [facility] Comment on above: Result Comment: 3.3 - 4.4 LOW RISK 4.4 - 7.1 AVERAGE RISK 7.1 - 11.0 MODERATE RISK >11.0 HIGH RISK Performed By: #### T 7, TSH, LIPID, CMP #### [facility] [address] [place] [address] Dr. Sona Cruz Cholesterol [Mass/Vol] 216 mg/dL Critically high <=200 [facility] Comment on above: Performed By: #### T 7, TSH, LIPID, CMP #### [facility] [address] [place] [address] Dr. Sona Cruz Cholesterol in HDL [Mass/Vol] 64 mg/dL Critically high 40-60 [facility] Comment on above: Performed By: #### T 7, TSH, LIPID, CMP #### [facility] [address] [place] [address] Dr. Sona Cruz Cholesterol in LDL [Mass/Vol] 132.4 mg/dL Normal [facility] Comment on above: Performed By: #### T 7, TSH, LIPID, CMP #### [facility] [address] [address] [address] Sona Cruz Cholesterol.total/Cho lesterol in HDL [Mass ratio] 3.4 {ratio} Normal [facility] Comment on above: Performed By: #### T 7, TSH, LIPID, CMP #### [facility] [address] [place] [address] Dr. Sona Cruz HDL NORMAL > or = 60 mg/dl - LOW CARDIOVASCULAR RISK <40 mg/dl - HIGH CARDIOVASCULAR RISK Normal [facility] Comment on above: Performed By: #### T 7, TSH, LIPID, CMP #### [facility] [address] [place] [address] Dr. Sona Cruz LDL CALC NORMAL SEE BELOW Normal [facility] Comment on above: Result Comment: <100 mg/dl OPTIMAL 100 - 129 mg/dl NEAR OR ABOVE OPTIMAL 130 - 159 mg/dl BORDERLINE HIGH 160 - 189 mg/dl HIGH >190 mg/dl VERY HIGH Performed By: #### T 7, TSH, LIPID, CMP #### [facility] [address] [address] [address] Sona Cruz Triglyceride [Mass/Vol] 98 mg/dL Normal <=150 [facility] Comment on above: Performed By: #### T 7, TSH, LIPID, CMP #### [facility] [address] [address] [address] Sona Cruz VLDL CALC 19.6 mg/dL Normal [facility] Comment on above: Performed By: #### T 7, TSH, LIPID, CMP #### [facility] [address] [address] [address] Sona Cruz MONOon 08-12-2022 Monocytes (Bld) [#/Vol] Negative Normal NEGATIVE [facility] Comment on above: Performed By: #### I MADDI #### [facility] [address] [place] [address] Dr. Sona Cruz PROF 14(COMP METB)on 023 Albumin [Mass/Vol] 3.9 g/dL Normal 3.4-5.[address] [facility] Comment on above: Performed By: #### T 7, TSH, LIPID, CMP #### [facility] [address] [place] [address] Dr. Sona Cruz Albumin/Globulin [Mass ratio] 1.1 {ratio} Normal [facility] Comment on above: Performed By: #### T 7, TSH, LIPID, CMP #### [facility] [address] [place] [address] Dr. Sona Cruz ALP [Catalytic activity/Vol] 106 U/L Normal 46-116 [facility] Comment on above: Performed By: #### T 7, TSH, LIPID, CMP #### [facility] [address] [place] [address] Dr. Sona Cruz ALT [Catalytic activity/Vol] 22 U/L Normal 14-59 [facility] Comment on above: Performed By: #### T 7, TSH, LIPID, CMP #### [facility] [address] [place] [address] Dr. Sona Cruz Anion gap [Moles/Vol] 12.5 mmol/L Normal [facility] Comment on above: Performed By: #### T 7, TSH, LIPID, CMP #### [facility] [address] [address] [address] Sona Cruz AST [Catalytic activity/Vol] 15 U/L Normal 15-37 [facility] Comment on above: Performed By: #### T 7, TSH, LIPID, CMP #### [facility] [address] [address] [address] Sona Cruz Bilirubin [Mass/Vol] 0.5 mg/dL Normal 0.2-1.0 [facility] Comment on above: Performed By: #### T 7, TSH, LIPID, CMP #### [facility] [address] [place] [address] Dr. Sona Cruz Calcium [Mass/Vol] 9.6 mg/dL Normal 8.5-10.[address] [facility] Comment on above: Performed By: #### T 7, TSH, LIPID, CMP #### [facility] [address] [place] [address] Dr. Sona Cruz Chloride [Moles/Vol] 102 mmol/L Normal 98-107 [facility] Comment on above: Performed By: #### T 7, TSH, LIPID, CMP #### [facility] [address] [place] [address] Dr. Sona Cruz CO2 [Moles/Vol] 28.3 mmol/L Normal 21.0-32.0 [facility] Comment on above: Performed By: #### T 7, TSH, LIPID, CMP #### [facility] [address] [place] [address] Dr. Sona Cruz Creatinine [Mass/Vol] 0.62 mg/dL Normal 0.55-1.02 [facility] Comment on above: Performed By: #### T 7, TSH, LIPID, CMP #### [facility] [address] [place] [address] Dr. Sona Cruz EGFR-AF [place] >60 Normal >=60 [facility] Comment on above: Performed By: #### T 7, TSH, LIPID, CMP #### [facility] [address] [address] [address] Sona Crzu EGFR-NON AF [place] >60 Normal >=60 [facility] Comment on above: Performed By: #### T 7, TSH, LIPID, CMP #### [facility] [address] [address] [address] Sona Cruz Globulin (S) [Mass/Vol] 3.7 g/dL Normal [facility] Comment on above: Performed By: #### T 7, TSH, LIPID, CMP #### [facility] [address] [address] [address] Sona Cruz Glucose [Mass/Vol] 106 mg/dL Normal 74-106 [facility] Comment on above: Performed By: #### T 7, TSH, LIPID, CMP #### [facility] [address] [address] [address] Sona Cruz Potassium [Moles/Vol] 3.8 mmol/L Normal 3.5-5.1 [facility] Comment on above: Performed By: #### T 7, TSH, LIPID, CMP #### [facility] [address] [address] [address] Sona Cruz Protein [Mass/Vol] 7.6 g/dL Normal 6.4-8.2 [facility] Comment on above: Performed By: #### T 7, TSH, LIPID, CMP #### [facility] [address] [address] [address] Sona Cruz Sodium [Moles/Vol] 139 mmol/L Normal 136-145 [facility] Comment on above: Performed By: #### T 7, TSH, LIPID, CMP #### [facility] [address] [address] [address] Sona Cruz Urea nitrogen [Mass/Vol] 25.0 mg/dL Critically high 7.0-18.0 [facility] Comment on above: Performed By: #### T 7, TSH, LIPID, CMP #### [facility] [address] [address] [address] Sona Cruz Urea nitrogen/Creatinine [Mass ratio] 40.3 mg/mg Normal [facility] Comment on above: Performed By: #### T 7, TSH, LIPID, CMP #### [facility] [address] [place] [address] Dr. Sona Cruz PROTIMEon 08-12-2022 INR Coag (PPP) [Relative time] {INR} Normal [facility] Comment on above: Performed By: #### T 7, TSH, LIPID, CMP #### [facility] [address] [place] [address] Dr. Sona Cruz INR GUIDELINES SEE BELOW Normal The [facility] Comment on above: Result Comment: CAROL RED INR: 2.0 - 3.0 CONDITIONS NOT LISTED BELOW 2.5 - 3.5 FOR PROSTHETIC HEART VALVE REPLACEMENT 2.5 - 3.5 RECURRENT THROMBOSIS Performed By: #### T 7, TSH, LIPID, CMP #### [facility] [address] [place] [address] Dr. Sona Cruz PT Coag (PPP) [Time] 9.7 s Normal 9.0-11.6 [facility] Comment on above: Performed By: #### T 7, TSH, LIPID, CMP #### [facility] [address] [place] [address] Dr. Sona Cruz PTTon 08-12-2022 aPTT Coag (Bld) [Time] 27.1 s Normal 22.3-36.2 [facility] Comment on above: Performed By: #### T 7, TSH, LIPID, CMP #### [facility] [address] [place] [address] Dr. Sona Cruz SED RATE STOCKTONERGRENon 2022 SED RATE 47 mm/hr Critically high <=30 [facility] Comment on above: Performed By: #### T 7, TSH, LIPID, CMP #### [facility] [address] [place] [address] Dr. Sona Cruz TSHon 08-12-2022 TSH 2.474 uIU/mL Normal 0.358-3.740 [facility] Comment on above: Performed By: #### T 7, TSH, LIPID, CMP #### [facility] [address] [address] [address] Sona Cruz UA RANDOM W/MICROSCOPICon BACTERIA NONE SEEN Normal NONE SEEN [facility] Comment on above: Performed By: #### T 7, TSH, LIPID, CMP #### [facility] [address] [place] [address] Dr. Sona Cruz Bilirubin Ql (U) Negative Normal NEGATIVE [facility] Comment on above: Performed By: #### T 7, TSH, LIPID, CMP #### [facility] [address] [place] [address] Dr. Sona Cruz CAST NONE SEEN Normal NONE SEEN [facility] Comment on above: Performed By: #### T 7, TSH, LIPID, CMP #### [facility] [address] [place] [address] Dr. Sona Cruz Clarity (U) CLEAR Normal CLEAR [facility] Comment on above: Performed By: #### T 7, TSH, LIPID, CMP #### [facility] [address] [place] [address] Dr. Sona Cruz Color (U) YELLOW Normal YELLOW [facility] Comment on above: Performed By: #### T 7, TSH, LIPID, CMP #### [facility] [address] [place] [address] Dr. Sona Cruz Crystals LM Nom (Urine sed) NONE SEEN Normal NONE SEEN [facility] Comment on above: Performed By: #### T 7, TSH, LIPID, CMP #### [facility] [address] [place] [address] Dr. Sona Cruz Epithelial cells LM Ql (Urine sed) NONE SEEN Normal NONE SEEN /RARE [facility] Comment on above: Performed By: #### T 7, TSH, LIPID, CMP #### [facility] [address] [place] [address] Dr. Sona Cruz Glucose Ql (U) Negative Normal NEGATIVE The [facility] Comment on above: Performed By: #### T 7, TSH, LIPID, CMP #### [facility] [address] [place] [address] Dr. Sona Cruz Hemoglobin Ql (U) Negative Normal NEGATIVE [facility] Comment on above: Performed By: #### T 7, TSH, LIPID, CMP #### [facility] [address] [address] [address] Sona Cruz Ketones Ql (U) Negative Normal NEGATIVE The [facility] Comment on above: Performed By: #### T 7, TSH, LIPID, CMP #### [facility] [address] [address] [address] Sona Cruz LEUKOCYTES Negative Normal NEGATIVE [facility] Comment on above: Performed By: #### T 7, TSH, LIPID, CMP #### [facility] [address] [place] [address] Dr. Sona Cruz MUCOUS NONE SEEN Normal NONE SEEN [facility] Comment on above: Performed By: #### T 7, TSH, LIPID, CMP #### [facility] [address] [place] [address] Dr. Sona Cruz Nitrite Ql (U) Negative Normal NEGATIVE The [facility] Comment on above: Performed By: #### T 7, TSH, LIPID, CMP #### [facility] [address] [place] [address] Dr. Sona Cruz pH (U) 6.0 [pH] Normal 5-9 [facility] Comment on above: Performed By: #### T 7, TSH, LIPID, CMP #### [facility] [address] [place] [address] Dr. Sona Cruz RBC 0-2 Normal 0-2 [facility] Comment on above: Performed By: #### T 7, TSH, LIPID, CMP #### [facility] [address] [place] [address] Dr. Sona Cruz SPEC GRAVITY 1.010 Normal 1.005-<=1.025 [facility] Comment on above: Performed By: #### T 7, TSH, LIPID, CMP #### [facility] [address] [place] [address] Dr. Sona Cruz UA PROTEIN Negative Normal NEGATIVE/ TRACE [facility] Comment on above: Performed By: #### T 7, TSH, LIPID, CMP #### [facility] [address] [place] [address] Dr. Sona Cruz Urobilinogen Qn (U) 0.2 {Dayanna'U}/dL Normal 0.2 - 1. 0 [facility] Comment on above: Performed By: #### T 7, TSH, LIPID, CMP #### [facility] [address] [place] [address] Dr. Sona Cruz WBC NONE SEEN Normal NONE SEEN [facility] Comment on above: Performed By: #### T 7, TSH, LIPID, CMP #### [facility] [address] [place] [address] Dr. Sona Cruz VITAMIN B12on 08-12-2022 Cobalamin (Vitamin B12) [Mass/Vol] 542.0 pg/mL Normal 193.0-986.0 [facility] Comment on above: Performed By: #### T 7, TSH, LIPID, CMP #### [facility] [address] [place] [address] Dr. Sona Cruz VITAMIN D 25 OHon 08-12-2022 VIT D 25-OH 23.3 ng/mL Normal [facility] Comment on above: Performed By: #### T 7, TSH, LIPID, CMP #### [facility] [address] [place] [address] Dr. Sona Cruz VIT D RANGES SEE BELOW Normal [facility] Comment on above: Result Comment: <20 ng/mL Vit D deficient 20 - <30 ng/mL Vit D insufficient 30 - 100 ng/mL Vit D sufficient >100 ng/mL Potential Toxicity Performed By: #### T 7, TSH, LIPID, CMP #### [facility] [address] [place] [address] Dr. Sona Cruz ANTISTREPTOLYSIN O AB (ASO)o n 06-18-2022 Antistreptolysin O Ab 561.7 IU/mL Critically high 0.0-200. 0 [facility] Comment on above: Performed By: #### T 7, TSH, LIPID, CMP #### [facility] [address] [place] [address] Dr. Sona Cruz INSULINon 06-18-2022 Insulin 11.2 uIU/mL Normal 2.6-24.9 [facility] Comment on above: Performed By: #### T 7, TSH, LIPID, CMP #### [facility] [address] [place] [address] Dr. Sona Cruz CBC AUTO DIFFon 06-17-2022 BASO # 0.1 103/ul Normal 0.0-0.1 [facility] Comment on above: Performed By: #### T 7, TSH, LIPID, CMP #### [facility] [address] [place] [address] Dr. Sona Cruz Basophils/100 WBC (Bld) 0.6 % Normal 0.2-2.0 [facility] Comment on above: Performed By: #### T 7, TSH, LIPID, CMP #### [facility] [address] [place] [address] Dr. Sona Cruz EO # 0.2 103/ul Normal 0.0-0.7 [facility] Comment on above: Performed By: #### T 7, TSH, LIPID, CMP #### [facility] [address] [place] [address] Dr. Sona Cruz Eosinophils/100 WBC (Bld) 1.8 % Normal 0.9-7.0 [facility] Comment on above: Performed By: #### T 7, TSH, LIPID, CMP #### [facility] [address] [place] [address] Dr. Sona Cruz Erythrocyte distribution width (RBC) [Ratio] 15.3 % Critically high 11.0-15.0 [facility] Comment on above: Performed By: #### T 7, TSH, LIPID, CMP #### [facility] [address] [place] [address] Dr. Sona Cruz Hematocrit (Bld) [Volume fraction] 39.1 % Normal 36.0-48.0 [facility] Comment on above: Performed By: #### T 7, TSH, LIPID, CMP #### [facility] [address] [place] [address] Dr. Sona Cruz Hemoglobin (Bld) [Mass/Vol] 12.7 g/dL Normal 12.0-16.0 [facility] Comment on above: Performed By: #### T 7, TSH, LIPID, CMP #### [facility] [address] [place] [address] Dr. Sona Cruz IG # 0.15 10e3/ul Critically high 0.00-0.03 [facility] Comment on above: Performed By: #### T 7, TSH, LIPID, CMP #### [facility] [address] [place] [address] Dr. Sona Cruz IG % 1.3 % Critically high 0.0-0.5 [facility] Comment on above: Performed By: #### T 7, TSH, LIPID, CMP #### [facility] [address] [place] [address] Dr. Sona Cruz LYMPH # 2.0 103/ul Normal 1.2-3.8 [facility] Comment on above: Performed By: #### T 7, TSH, LIPID, CMP #### [facility] [address] [place] [address] Dr. Sona Cruz Lymphocytes/100 WBC (Bld) 16.3 % Critically low 20.5-60.0 [facility] Comment on above: Performed By: #### T 7, TSH, LIPID, CMP #### [facility] [address] [place] [address] Dr. Sona Cruz MANUAL DIFF REQ NO Normal [facility] Comment on above: Performed By: #### T 7, TSH, LIPID, CMP #### [facility] [address] [place] [address] Dr. Sona Cruz MCH (RBC) [Entitic mass] 28.7 pg Normal 26.7-34.0 [facility] Comment on above: Performed By: #### T 7, TSH, LIPID, CMP #### [facility] [address] [place] [address] Dr. Sona Cruz MCHC (RBC) [Mass/Vol] 32.5 g/dL Normal 29.9-35.2 [facility] Comment on above: Performed By: #### T 7, TSH, LIPID, CMP #### [facility] [address] [address] [address] Sona Cruz MCV (RBC) [Entitic vol] 88.3 fL Normal 81.0-99.0 [facility] Comment on above: Performed By: #### T 7, TSH, LIPID, CMP #### [facility] [address] [place] [address] Dr. Sona Cruz MONO # 0.8 103/ul Normal 0.3-0.8 [facility] Comment on above: Performed By: #### T 7, TSH, LIPID, CMP #### [facility] [address] [place] [address] Dr. Sona Cruz Monocytes/100 WBC (Bld) 6.4 % Normal 1.7-12.0 [facility] Comment on above: Performed By: #### T 7, TSH, LIPID, CMP #### [facility] [address] [place] [address] Dr. Sona Cruz NEUT # 8.8 103/ul Critically high 1.4-6.5 [facility] Comment on above: Performed By: #### T 7, TSH, LIPID, CMP #### [facility] [address] [place] [address] Dr. Sona Cruz Neutrophils/100 WBC (Bld) 73.6 % Normal 43.0-75.0 [facility] Comment on above: Performed By: #### T 7, TSH, LIPID, CMP #### [facility] [address] [place] [address] Dr. Sona Cruz Platelet mean volume (Bld) [Entitic vol] 10.3 fL Normal 9.5-13.5 [facility] Comment on above: Performed By: #### T 7, TSH, LIPID, CMP #### [facility] [address] [place] [address] Dr. Sona Cruz PLT 289 103/ul Normal 150-450 [facility] Comment on above: Performed By: #### T 7, TSH, LIPID, CMP #### [facility] [address] [place] [address] Dr. Sona Cruz RBC 4.43 106/ul Normal 4.20-5.40 [facility] Comment on above: Performed By: #### T 7, TSH, LIPID, CMP #### [facility] [address] [address] [address] Sona Cruz WBC 12.0 103/ul Critically high 4.0-11.0 [facility] Comment on above: Performed By: #### T 7, TSH, LIPID, CMP #### [facility] [address] [address] [address] Sona Cruz CULTURE URINEon 06-17-2022 CULTURE URINE Culture Observations: MODERATE GROWTH OF MIXED GENITAL DESI. NO POTENTIAL PATHOGENS SEEN. Normal [facility] Comment on above: Performed By: #### U RCX #### [facility] [address] [address] [address] Sona Crzu [facility] SARS-CoV-2 (COVID-19) RNA PAVAN+probe Ql (Unsp spec) Not detected Normal NOT DETECTED [facility] Comment on above: Result Comment: This test is not yet approved or cleared by the [place] FDA. When there are no FDA-approved or cleared tests available, and other criteria are met, FDA can make tests available under an emergency access mechanism called an Emergency Use Authorization (EUA). The EUA for this test is supported by the [place] of Health and Human Service's (HHS's) declaration [...] #### T 7, TSH, LIPID, CMP #### [facility] [address] [address] [address] Sona Cruz FREE THYROXINE INDEX T7on FTI 2.89 Normal 1.30-4.50 [facility] Comment on above: Performed By: #### I MADDI #### [facility] [address] [address] [address] Sona Cruz T3U 34.0 % Normal 30.0-39.0 [facility] Comment on above: Performed By: #### I MADDI #### [facility] [address] [address] [address] Sona Cruz T4 [Mass/Vol] 8.50 ug/dL Normal 4.80-13.90 [facility] Comment on above: Performed By: #### I MADDI #### [facility] [address] [address] [address] Sona Cruz GLYCOHEMOGLOBIN A1Con 2022 ADA RECOMMENDATION SEE BELOW Normal [facility] Comment on above: Result Comment: ADA RECOMMENDED LIMIT 4.0 - 6.0 ADA THERAPEUTIC TARGET < 7.0 ACTION SUGGESTED > 7.0 Performed By: #### T 7, TSH, LIPID, CMP #### [facility] [address] [address] [address] Sona Cruz Glucose [Mass/Vol] 114 mg/dL Normal [facility] Comment on above: Performed By: #### T 7, TSH, LIPID, CMP #### [facility] [address] [address] [address] Sona Cruz HbA1c (Bld) [Mass fraction] 5.6 % Normal 4.5-6.2 [facility] Comment on above: Performed By: #### T 7, TSH, LIPID, CMP #### [facility] [address] [address] [address] Sona Cruz IRONon 06-17-2022 Iron [Mass/Vol] 50.0 ug/dL Normal 50.0-170.0 [facility] Comment on above: Performed By: #### I MADDI #### [facility] [address] [address] [address] Sona Cruz LIPID PROFILEon 06-17-2022 CHOL-HDL RATIO NORM SEE BELOW Normal [facility] Comment on above: Result Comment: 3.3 - 4.4 LOW RISK 4.4 - 7.1 AVERAGE RISK 7.1 - 11.0 MODERATE RISK >11.0 HIGH RISK Performed By: #### I MADDI #### [facility] [address] [place] [address] Dr. Sona Cruz Cholesterol [Mass/Vol] 203 mg/dL Critically high <=200 [facility] Comment on above: Performed By: #### I MADDI #### [facility] [address] [place] [address] Dr. Sona Cruz Cholesterol in HDL [Mass/Vol] 74 mg/dL Critically high 40-60 [facility] Comment on above: Performed By: #### I MADDI #### [facility] [address] [place] [address] Dr. Sona Cruz Cholesterol in LDL [Mass/Vol] 112.4 mg/dL Normal [facility] Comment on above: Performed By: #### I MADDI #### [facility] [address] [place] [address] Dr. Sona Cruz Cholesterol.total/Cho lesterol in HDL [Mass ratio] 2.7 {ratio} Normal [facility] Comment on above: Performed By: #### I MADDI #### [facility] [address] [place] [address] Dr. Sona Cruz HDL NORMAL > or = 60 mg/dl - LOW CARDIOVASCULAR RISK <40 mg/dl - HIGH CARDIOVASCULAR RISK Normal [facility] Comment on above: Performed By: #### I MADDI #### [facility] [address] [place] [address] Dr. Sona Cruz LDL CALC NORMAL SEE BELOW Normal [facility] Comment on above: Result Comment: <100 mg/dl OPTIMAL 100 - 129 mg/dl NEAR OR ABOVE OPTIMAL 130 - 159 mg/dl BORDERLINE HIGH 160 - 189 mg/dl HIGH >190 mg/dl VERY HIGH Performed By: #### I MADDI #### [facility] [address] [place] [address] Dr. Sona Cruz Triglyceride [Mass/Vol] 83 mg/dL Normal <=150 [facility] Comment on above: Performed By: #### I MADDI #### [facility] [address] [place] [address] Dr. Sona Cruz VLDL CALC 16.6 mg/dL Normal [facility] Comment on above: Performed By: #### I MADDI #### [facility] [address] [place] [address] Dr. Sona Cruz PROF 14(COMP METB)on 023 Albumin [Mass/Vol] 3.5 g/dL Normal 3.4-5.[address] [facility] Comment on above: Performed By: #### I MADDI #### [facility] [address] [place] [address] Dr. Sona Cruz Albumin/Globulin [Mass ratio] 0.9 {ratio} Normal [facility] Comment on above: Performed By: #### I MADDI #### [facility] [address] [place] [address] Dr. Sona Cruz ALP [Catalytic activity/Vol] 105 U/L Normal 46-116 [facility] Comment on above: Performed By: #### I MADDI #### [facility] [address] [place] [address] Dr. Sona Cruz ALT [Catalytic activity/Vol] 18 U/L Normal 14-59 [facility] Comment on above: Performed By: #### I MADDI #### [facility] [address] [place] [address] Dr. Sona Cruz Anion gap [Moles/Vol] 10.8 mmol/L Normal [facility] Comment on above: Performed By: #### I MADDI #### [facility] [address] [place] [address] Dr. Sona Cruz AST [Catalytic activity/Vol] 16 U/L Normal 15-37 [facility] Comment on above: Performed By: #### I MADDI #### [facility] [address] [place] [address] Dr. Sona Cruz Bilirubin [Mass/Vol] 0.4 mg/dL Normal 0.2-1.0 [facility] Comment on above: Performed By: #### I MADDI #### [facility] [address] [place] [address] Dr. Sona Cruz Calcium [Mass/Vol] 9.2 mg/dL Normal 8.5-10.1 [facility] Comment on above: Performed By: #### I MADDI #### [facility] [address] [place] [address] Dr. Sona Cruz Chloride [Moles/Vol] 101 mmol/L Normal 98-107 [facility] Comment on above: Performed By: #### I MADDI #### [facility] [address] [place] [address] Dr. Sona Cruz CO2 [Moles/Vol] 31.4 mmol/L Normal 21.0-32.0 [facility] Comment on above: Performed By: #### I MADDI #### [facility] [address] [place] [address] Dr. Sona Cruz Creatinine [Mass/Vol] 0.64 mg/dL Normal 0.55-1.02 [facility] Comment on above: Performed By: #### I MADDI #### [facility] [address] [place] [address] Dr. Sona Cruz EGFR-AF [place] R[place] >60 Normal >=60 [facility] Comment on above: Performed By: #### I MADDI #### [facility] [address] [place] [address] Dr. Sona Cruz EGFR-NON AF [place] R[place] >60 Normal >=60 [facility] Comment on above: Performed By: #### I MADDI #### [facility] [address] [place] [address] Dr. Sona Cruz Globulin (S) [Mass/Vol] 3.9 g/dL Normal [facility] Comment on above: Performed By: #### I MADDI #### [facility] [address] [place] [address] Dr. Sona Cruz Glucose [Mass/Vol] 97 mg/dL Normal 74-106 [facility] Comment on above: Performed By: #### I MADDI #### [facility] [address] [place] [address] Dr. Sona Cruz Potassium [Moles/Vol] 4.2 mmol/L Normal 3.5-5.1 [facility] Comment on above: Performed By: #### I MADDI #### [facility] [address] [address] [address] Sona Cruz Protein [Mass/Vol] 7.4 g/dL Normal 6.4-8.[address] [facility] Comment on above: Performed By: #### I MADDI #### [facility] [address] [address] [address] Sona Cruz Sodium [Moles/Vol] 139 mmol/L Normal 136-145 [facility] Comment on above: Performed By: #### I MADDI #### [facility] [address] [address] [address] Sona Cruz Urea nitrogen [Mass/Vol] 21.0 mg/dL Critically high 7.0-18.0 [facility] Comment on above: Performed By: #### I MADDI #### [facility] [address] [address] [address] Sona Cruz Urea nitrogen/Creatinine [Mass ratio] 32.8 mg/mg Normal [facility] Comment on above: Performed By: #### I MADDI #### [facility] [address] [address] [address] Sona Cruz TSHon 06-17-2022 TSH 2.478 uIU/mL Normal 0.358-3.740 [facility] Comment on above: Performed By: #### I MADDI #### [facility] [address] [address] [address] Sona Cruz UA RANDOM W/MICROSCOPICon BACTERIA NONE SEEN Normal NONE SEEN [facility] Comment on above: Performed By: #### T 7, TSH, LIPID, CMP #### [facility] [address] [address] [address] Sona Cruz Bilirubin Ql (U) Negative Normal NEGATIVE [facility] Comment on above: Performed By: #### T 7, TSH, LIPID, CMP #### [facility] [address] [address] [address] Sona Cruz CAST NONE SEEN Normal NONE SEEN [facility] Comment on above: Performed By: #### T 7, TSH, LIPID, CMP #### [facility] [address] [place] [address] Dr. Sona Cruz Clarity (U) CLEAR Normal CLEAR [facility] Comment on above: Performed By: #### T 7, TSH, LIPID, CMP #### [facility] [address] [address] [address] Sona Cruz Color (U) LT. YELLOW Normal YELLOW [facility] Comment on above: Performed By: #### T 7, TSH, LIPID, CMP #### [facility] [address] [place] [address] Dr. Sona Cruz Crystals LM Nom (Urine sed) NONE SEEN Normal NONE SEEN [facility] Comment on above: Performed By: #### T 7, TSH, LIPID, CMP #### [facility] [address] [place] [address] Dr. Sona Cruz Epithelial cells LM Ql (Urine sed) FEW Abnormal NONE SEEN /RARE [facility] Comment on above: Performed By: #### T 7, TSH, LIPID, CMP #### [facility] [address] [place] [address] Dr. Sona Cruz Glucose Ql (U) Negative Normal NEGATIVE The [facility] Comment on above: Performed By: #### T 7, TSH, LIPID, CMP #### [facility] [address] [place] [address] Dr. Sona Cruz Hemoglobin Ql (U) Negative Normal NEGATIVE [facility] Comment on above: Performed By: #### T 7, TSH, LIPID, CMP #### [facility] [address] [place] [address] Dr. Sona Cruz Ketones Ql (U) Negative Normal NEGATIVE The [facility] Comment on above: Performed By: #### T 7, TSH, LIPID, CMP #### [facility] [address] [place] [address] Dr. Sona Cruz LEUKOCYTES Negative Normal NEGATIVE [facility] Comment on above: Performed By: #### T 7, TSH, LIPID, CMP #### [facility] [address] [place] [address] Dr. Sona Cruz MUCOUS NONE SEEN Normal NONE SEEN [facility] Comment on above: Performed By: #### T 7, TSH, LIPID, CMP #### [facility] [address] [address] [address] Sona Cruz Nitrite Ql (U) Negative Normal NEGATIVE The [facility] Comment on above: Performed By: #### T 7, TSH, LIPID, CMP #### [facility] [address] [address] [address] Sona Cruz pH (U) 6.0 [pH] Normal 5-9 [facility] Comment on above: Performed By: #### T 7, TSH, LIPID, CMP #### [facility] [address] [address] [address] Sona Cruz RBC 0-2 Normal 0-2 [facility] Comment on above: Performed By: #### T 7, TSH, LIPID, CMP #### [facility] [address] [address] [address] Sona Cruz SPEC GRAVITY 1.020 Normal 1.005-<=1.025 [facility] Comment on above: Performed By: #### T 7, TSH, LIPID, CMP #### [facility] [address] [address] [address] Sona Cruz UA PROTEIN Negative Normal NEGATIVE/ TRACE [facility] Comment on above: Performed By: #### T 7, TSH, LIPID, CMP #### [facility] [address] [address] [address] Sona Cruz Urobilinogen Qn (U) 0.2 {Dayanna'U}/dL Normal 0.2 - 1. 0 [facility] Comment on above: Performed By: #### T 7, TSH, LIPID, CMP #### [facility] [address] [address] [address] Sona Cruz WBC 0-2 Abnormal NONE SEEN [facility] Comment on above: Performed By: #### T 7, TSH, LIPID, CMP #### [facility] [address] [address] [address] Sona Cruz ANTISTREPTOLYSIN O AB (ASO)o n 05-18-2022 Antistreptolysin O Ab 866.8 IU/mL Critically high 0.0-200. 0 [facility] Comment on above: Result Comment: Resu lts confirmed on dilution. Performed By: #### T 7, TSH, LIPID, CMP #### [facility] [address] [place] [address] Dr. Sona Cruz CBC AUTO DIFFon 05-17-2022 BASO # 0.1 103/ul Normal 0.0-0.1 [facility] Comment on above: Performed By: #### T 7, TSH, LIPID, CMP #### [facility] [address] [place] [address] Dr. Sona Cruz Basophils/100 WBC (Bld) 0.6 % Normal 0.2-2.0 [facility] Comment on above: Performed By: #### T 7, TSH, LIPID, CMP #### [facility] [address] [place] [address] Dr. Sona Cruz EO # 0.2 103/ul Normal 0.0-0.7 [facility] Comment on above: Performed By: #### T 7, TSH, LIPID, CMP #### [facility] [address] [place] [address] Dr. Sona Cruz Eosinophils/100 WBC (Bld) 1.8 % Normal 0.9-7.0 [facility] Comment on above: Performed By: #### T 7, TSH, LIPID, CMP #### [facility] [address] [place] [address] Dr. Sona Cruz Erythrocyte distribution width (RBC) [Ratio] 14.2 % Normal 11.0-15.0 [facility] Comment on above: Performed By: #### T 7, TSH, LIPID, CMP #### [facility] [address] [place] [address] Dr. Sona Cruz Hematocrit (Bld) [Volume fraction] 44.7 % Normal 36.0-48.0 [facility] Comment on above: Performed By: #### T 7, TSH, LIPID, CMP #### [facility] [address] [place] [address] Dr. Sona Cruz Hemoglobin (Bld) [Mass/Vol] 14.4 g/dL Normal 12.0-16.0 [facility] Comment on above: Performed By: #### T 7, TSH, LIPID, CMP #### [facility] [address] [address] [address] Sona Cruz IG # 0.09 10e3/ul Critically high 0.00-0.03 [facility] Comment on above: Performed By: #### T 7, TSH, LIPID, CMP #### [facility] [address] [place] [address] Dr. Sona Cruz IG % 0.7 % Critically high 0.0-0.5 [facility] Comment on above: Performed By: #### T 7, TSH, LIPID, CMP #### [facility] [address] [place] [address] Dr. Sona Cruz LYMPH # 2.2 103/ul Normal 1.2-3.8 [facility] Comment on above: Performed By: #### T 7, TSH, LIPID, CMP #### [facility] [address] [place] [address] Dr. Sona Cruz Lymphocytes/100 WBC (Bld) 17.2 % Critically low 20.5-60.0 [facility] Comment on above: Performed By: #### T 7, TSH, LIPID, CMP #### [facility] [address] [place] [address] Dr. Sona Cruz MANUAL DIFF REQ NO Normal [facility] Comment on above: Performed By: #### T 7, TSH, LIPID, CMP #### [facility] [address] [place] [address] Dr. Sona Cruz MCH (RBC) [Entitic mass] 28.7 pg Normal 26.7-34.0 [facility] Comment on above: Performed By: #### T 7, TSH, LIPID, CMP #### [facility] [address] [place] [address] Dr. Sona Cruz MCHC (RBC) [Mass/Vol] 32.2 g/dL Normal 29.9-35.2 [facility] Comment on above: Performed By: #### T 7, TSH, LIPID, CMP #### [facility] [address] [place] [address] Dr. Sona Cruz MCV (RBC) [Entitic vol] 89.0 fL Normal 81.0-99.0 [facility] Comment on above: Performed By: #### T 7, TSH, LIPID, CMP #### [facility] [address] [place] [address] Dr. Sona Cruz MONO # 0.9 103/ul Critically high 0.3-0.8 [facility] Comment on above: Performed By: #### T 7, TSH, LIPID, CMP #### [facility] [address] [place] [address] Dr. Sona Cruz Monocytes/100 WBC (Bld) 6.5 % Normal 1.7-12.0 [facility] Comment on above: Performed By: #### T 7, TSH, LIPID, CMP #### [facility] [address] [place] [address] Dr. Sona Cruz NEUT # 9.5 103/ul Critically high 1.4-6.5 [facility] Comment on above: Performed By: #### T 7, TSH, LIPID, CMP #### [facility] [address] [place] [address] Dr. Sona Cruz Neutrophils/100 WBC (Bld) 73.2 % Normal 43.0-75.0 [facility] Comment on above: Performed By: #### T 7, TSH, LIPID, CMP #### [facility] [address] [place] [address] Dr. Sona Cruz Platelet mean volume (Bld) [Entitic vol] 10.5 fL Normal 9.5-13.5 [facility] Comment on above: Performed By: #### T 7, TSH, LIPID, CMP #### [facility] [address] [place] [address] Dr. Sona Cruz PLT 319 103/ul Normal 150-450 [facility] Comment on above: Performed By: #### T 7, TSH, LIPID, CMP #### [facility] [address] [place], [place] [id number] Dr. Sona Cruz RBC 5.02 106/ul Normal 4.20-5.40 [facility] Comment on above: Performed By: #### T 7, TSH, LIPID, CMP #### [facility] [address] [place] [address] Dr. Sona Cruz WBC 13.0 103/ul Critically high 4.0-11.0 [facility] Comment on above: Performed By: #### T 7, TSH, LIPID, CMP #### [facility] [address] [place] [address] Dr. Sona Cruz CRPon 05-17-2022 CRP [Mass/Vol] mg/L Normal <=1.0 [facility] Comment on above: Performed By: #### T 7, TSH, LIPID, CMP #### [facility] [address] [place] [address] Dr. Sona Cruz CULTURE BLOODon 05-17-2022 Microscopic examination of blood, culture Culture Observations: NO GROWTH AT 5 DAYS. Normal [facility] Comment on above: Performed By: #### B LDCX2 #### [facility] [address] [place] [address] Dr. Sona Cruz Microscopic examination of blood, culture Culture Observations: NO GROWTH AT 5 DAYS. Normal [facility] Comment on above: Performed By: #### B LDCX1 #### [facility] [address] [place] [address] Dr. Sona Cruz SED RATE WESTERGRENon 2021 SED RATE 54 mm/hr Critically high <=30 [facility] Comment on above: Performed By: #### T 7, TSH, LIPID, CMP #### [facility] [address] [place] [address] Dr. Sona Cruz MRI LSPINE WO CONon [...] YUNIOR ROBBINS Date: 2022-05-06 15:01 Normal [facility] MG MAMM SCREEN 3D CESAR CADon 04-15-2022 MG MAMM SCREEN 3D CESAR CAD Patient: SYLVIE ALTAMIRANO Exam Date: 04/15/2022 : 1970 Gender:F Ordering : DR ELEUTERIO CARRANZA . Admission #: [id number] Family : Order #: [id number] CLICK HERE TO VIEW EXAM RADIOLOGY REPORT PROCEDURE: MAMMOGRAM SCREENING 3D BILATERAL CAD COMPARISON: None. INDICATIONS: Screening mammography Calculator Name NCI Breast Cancer Risk Assessment Tool 5 Year Breast Cancer Risk 0.80% Lifetime Breast Cancer Risk 7.10% Personal Breast Cancer No Personal Ovarian Cancer No Treatments None Family Cancers Sister with colon cancer at age 34. LOCATION: [facility] BREAST COMPOSITION: Almost entirely fatty. FINDINGS: [...] Hickey MD on 04/15/2022 at 14:17 Normal [facility] ECHOCARDIO M/2D COMPLETEon 1 ECHOCARDIO M/2D COMPLETE Patient: SYLVIE ALTAMIRANO Exam Date: 04/08/2022 : 1970 Gender:F Ordering : DR ELEUTERIO CARRANZA . Admission #: [id number] Family : Order #: [id number] CLICK HERE TO VIEW EXAM ECHOCARDIOGRAM REPORT [...] Lazaro M.D. on 04/13/2022 at 11:32 Normal [facility] SLE PROFILE Aon 04-01-2022 Anti-DNA (DS) Ab Qn 1 IU/mL Normal 0-9 [facility] Comment on above: Result Comment: Nega tive <5 Equivocal 5 - 9 Positive >9 Performed By: #### T 7, TSH, LIPID, CMP #### [facility] [address] [address] [address] oSna Cruz Antichromatin Antibodies <0.2 Normal 0.0-0.9 [facility] Comment on above: Performed By: #### T 7, TSH, LIPID, CMP #### [facility] [address] [place] [address] Dr. Sona Cruz RA Latex Turbid. <10.0 Normal <14.0 [facility] Comment on above: Performed By: #### T 7, TSH, LIPID, CMP #### [facility] [address] [place] [address] Dr. Sona Cruz SAVE ALL OPERATOR Antibodies 0.2 AI Normal 0.0-0.9 [facility] Comment on above: Performed By: #### T 7, TSH, LIPID, CMP #### [facility] [address] [place] [address] Dr. Sona Cruz Sjogrольга's Anti-SS-A <0.2 Normal 0.0-0.9 [facility] Comment on above: Performed By: #### T 7, TSH, LIPID, CMP #### [facility] [address] [place] [address] Dr. Sona Cruz Sjogrольга's Anti-SS-B <0.2 Normal 0.0-0.9 [facility] Comment on above: Performed By: #### T 7, TSH, LIPID, CMP #### [facility] [address] [place] [address] Dr. Sona Cruz Judd Antibodies <0.2 Normal 0.0-0.9 [facility] Comment on above: Performed By: #### T 7, TSH, LIPID, CMP #### [facility] [address] [place] [address] Dr. Sona Cruz REGGIE by IFAon 03-31-2022 Antinuclear Antibodies, IFA Negative Normal [facility] Comment on above: Result Comment: Nega tive <1:80 Borderline 1:80 Positive >1:80 ICAP nomenclature: AC-0 For more information about Hep-2 cell patterns use ANApatterns.org, the official website for the International Consensus on Antinuclear Antibody (REGGIE) Patterns (ICAP). Performed By: #### T 7, TSH, LIPID, CMP #### [facility] [address] [place] [address] Dr. Sona Cruz RHEUMATOID FACTORon 03-31-20 RA Latex Turbid. <10.0 Normal <14.0 [facility] Comment on above: Performed By: #### T 7, TSH, LIPID, CMP #### [facility] [address] [place] [address] Dr. Sona Cruz ANTISTREPTOLYSIN O AB (ASO)o n 03-30-2022 Antistreptolysin O Ab 1118.1 IU/mL Critically high 0.0-200 .0 [facility] Comment on above: Result Comment: Resu lts confirmed on dilution. Performed By: #### T 7, TSH, LIPID, CMP #### [facility] [address] [place] [address] Dr. Sona Cruz DANIELLE-GARCIA VIRUS (EBV) AB PROFILEon 03-30-2022 EBV Ab VCA, IgG 57.9 U/mL Critically high 0.0-17.9 [facility] Comment on above: Result Comment: Nega tive <18.0 Equivocal 18.0 - 21.9 Positive >21.9 Performed By: #### T 7, TSH, LIPID, CMP #### [facility] [address] [place] [address] Dr. Sona Cruz EBV Ab VCA, IgM <36.0 Normal 0.0-35.9 [facility] Comment on above: Result Comment: Nega tive <36.0 Equivocal 36.0 - 43.9 Positive >43.9 Performed By: #### T 7, TSH, LIPID, CMP #### [facility] [address] [place] [address] Dr. Sona Cruz EBV Nuclear Antigen Ab, IgG 135.0 U/mL Critically high 0.0-17.9 [facility] Comment on above: Result Comment: Nega tive <18.0 Equivocal 18.0 - 21.9 Positive >21.9 Performed By: #### T 7, TSH, LIPID, CMP #### [facility] [address] [place], [place] [address] Dr. Sona Cruz Interpretation: Comment Normal [facility] Comment on above: Result Comment: EBV Interpretation [...] #### T 7, TSH, LIPID, CMP #### [facility] [address] [place], [place] [address] Dr. Sona Cruz XR KNEE CESAR 4V [...] by: YUNIOR ROBBINS Date: 2022-03-30 07:05 Normal [facility] [facility] LSPINE MIN 4 VIEWSon 03-12 [...] lower lumbar spine. Electronically authenticated by: YUNIOR ZIMARILOUDONALD Date: 2022-03-30 07:13 Normal [facility] CRPon 03-29-2022 CRP 1.4 mg/dL Critically high <=1.0 [facility] Comment on above: Performed By: #### T 7, TSH, LIPID, CMP #### [facility] [address] [address] [address] Sona Cruz FREE THYROXINE INDEX T7on FTI 2.62 Normal 1.30-4.50 [facility] Comment on above: Performed By: #### T 7, TSH, LIPID, CMP #### [facility] [address] [place] [address] Dr. Sona Cruz T3U 34.0 % Normal 30.0-39.0 [facility] Comment on above: Performed By: #### T 7, TSH, LIPID, CMP #### [facility] [address] [address] [address] Sona Cruz T4 [Mass/Vol] 7.70 ug/dL Normal 4.80-13.90 [facility] Comment on above: Performed By: #### T 7, TSH, LIPID, CMP #### [facility] [address] [address] [address] [facility] 48 mm/hr Critically high <=30 [facility] Comment on above: Performed By: #### T 7, TSH, LIPID, CMP #### [facility] [address] [place] [address] Dr. Sona Cruz TSHon 03-29-2022 TSH 2.577 uIU/mL Normal 0.358-3.740 [facility] Comment on above: Performed By: #### T 7, TSH, LIPID, CMP #### [facility] [address] [place] [address] Dr. Sona Cruz URIC ACID SERUMon 03-29-2022 Urate [Mass/Vol] 4.2 mg/dL Normal 2.6-6.0 [facility] Comment on above: Performed By: #### T 7, TSH, LIPID, CMP #### [facility] [address] [address] [address] Sona Cruz CHEMISTRYOrdered By: SYSTEM SYSTEM on 02-17-2022 25-hydroxyvitamin [...] % Normal 32.0 - 48.4 % [facility] Remisol Triglyceride [Mass/Vol] 127 mg/dL Normal <=149mg/dL [facility] Remisol TSH Qn 3.83 m[IU]/L Normal 0.34 - 5.60 mcIU/mL [facility] Remisol Urea nitrogen [Mass/Vol] 19 mg/dL Normal 5 - 21 mg/dL [facility] Remisol Urea nitrogen/Creatinine [Mass ratio] 38 mg/mg High 10 - 20 [facility] Remisol CHEMISTRYOrdered By: Lorene Bahena on 02-17-2022 HbA1c (Bld) [Mass fraction] 5.7 % Normal <=5.9% [facility] ChemAutoSS HEMATOLOGYOrdered By: SYSTEM SYSTEM on 02-17-2022 Basophils/100 [...] Normal 4.0 - 11.0 E9/L [facility] HemeAutoSS Vital Signs Date Time Vital Sign Value Performing Clinician Helen jacome 03-05-2024 09:25-0400 Blood Pressure Location Nica Groupjump[facility] [place] 03-05-2024 09:25-0400 Diastolic blood pressure 81 mm[Hg] Nica FRANCOL [facility] [place] 03-05-2024 09:25-0400 Heart rate 114 /min Nica [facility] [place] 03-05-2024 09:25-0400 Respiratory rate 16 /min Nica FRANCOL [facility] [place] 03-05-2024 09:25-0400 Systolic blood pressure 134 mm[Hg] Nica FRANCOL [facility] [place] 05-17-2022 13:43-0500 Blood Pressure Location Nica NILL [facility] 05-17-2022 13:43-0500 Diastolic blood pressure 86 mm[Hg] Nica NILL [facility] 05-17-2022 13:43-0500 Heart rate 72 /min Nica FRANCOL [facility] 05-17-2022 13:43-0500 Respiratory rate 16 /min Nica ISRAEL [facility] [place] 05-17-2022 [id number] Systolic blood pressure 122 mm[Hg] Nica ISRAEL [facility] [place] Encounters Encounter Date Encounter Type Care Provider Facility Start: 03-05-2024 End: 03-05-2024 ambulatory Nica Belle QI Facility: [facility] Start: 03-05-2024 End: 03-05-2024 Patient encounter procedure Nica ISRAEL [facility] [place] Start: 02-29-2024 ambulatory Nica ISRAEL Facility:[facility] [place] Start: 10-26-2022 End: 10-26-[address] ELEUTERIO CARRANZA . Facility:[facility] Start: 09-30-2022 End: 10-01-[address] ELEUTERIO CARRANZA . Facility:[facility] Start: 08-12-2022 End: 08-13-[address] ELEUTERIO CARRANZA . Facility:[facility] Start: 06-22-2022 End: 06-22-[address] NICA ISRAEL . Facility:[facility] Start: 06-20-2022 Encounter for preprocedural laboratory examination DR ELEUTERIO CARRANZA . [facility] Start: 06-17-2022 End: 06-18-2022 Encounter for preprocedural laboratory examination DR ELEUTERIO CARRANZA . Facility:[facility] Start: 06-17-2022 End: 06-18-[address] ELEUTERIO CARRANZA . Facility:[facility] Start: 05-17-2022 End: 05-18-[address] ELEUTERIO CARRANZA . Facility:[facility] Start: 05-17-2022 End: 05-17-2022 Patient encounter procedure Nica ISRAEL [facility] [place] Start: 05-06-2022 End: 05-07-[address] ELEUTERIO CARRANZA . Facility:[facility] Start: 05-03-2022 End: 05-04-[address] ELEUTERIO CARRANZA . Facility:[facility] Start: 05-02-[address] ELEUTERIO CARRANZA . Facili ty:[facility] Start: 04-27-[address] ELEUTERIO CARRANZA . Facili ty:[facility] Start: 04-15-2022 End: 04-16-[address] ELEUTERIO CARRANZA . Facility:[facility] Start: 04-08-2022 End: 04-09-[address] ELEUTERIO CARRANZA . Facility:[facility] Start: 03-29-2022 End: 03-30-[address] ELEUTERIO CARRANZA . Facility:[facility] Start: 03-08-2022 End: 03-09-[address] ELEUTERIO CARRANZA . Facility:[facility] Start: 02-17-2022 End: 02-17-2022 Patient encounter procedure Eleuterio Carranza [facility] Start: 01-17-2022 End: 04-17-[address] [facility] Procedures Date Procedure Procedure Detail Performing Clinician Start: 06-22-2022 Colonoscopy Nica NI LL Start: 08-10-2011 Colonoscopy Ncia NI LL Appendectomy Nica NILL Cholecystectomy Nica NILL Colonoscopy Nica NILL Dilation and curettage Yeison FRANCOL Exploratory laparotomy Yeison FRANCOL Total hysterectomy v ia vaginal approach Nica FRANCOL Immunizations Immunization Date Immunization Notes Care Provider Fa cility 05-16-2021 SARS-CoV-2 (COVID-19 ) mRNA-1273 vaccine Nica NILL [facility] [place] 04-29-2021 SARS-CoV-2 (COVID-19 ) Ad26 vaccine, recombinant Nica SALVADORL [facility] [place] NEGATED: Highlighted row has not occurred!05-17-2022 influenza virus vaccine, unspecified formulation Nica ISRAEL [facility] [place] Payers Date Payer Category Payer Unknown [id number] 2.16.84 [id number] 1970 Unknown [id number] 2.16.84 [id number] 1971 Unknown [id number] 2.16.84 0.1.947784.3.579.2.593 1971 Unknown [id number] 2.16.84 0.1.616540.3.579.2.593 1971 Unknown [id number] 2.16.84 0.1.776183.3.579.2.593 1971 Unknown [id number] 2.16.84 0.1.661105.3.579.2.593 1971 Unknown [id number] 2.16.84 0.1.601857.3.579.2.593 1971 Unknown [id number] 2.16.84 0.1.007539.3.579.2.593 1971 Unknown [id number] 2.16.84 0.1.449332.3.579.2.593 1971 Unknown [id number] 2.16.84 0.1.618869.3.579.2.593 1971 Unknown [id number] 2.16.84 0.1.683608.3.579.2.593 1971 Unknown [id number] 2.16.84 0.1.107034.3.579.2.593 1971 Unknown [id number] 2.16.84 0.1.788587.3.579.2.593 1971 Unknown [id number] 2.16.84 0.1.783698.3.579.2.593 1971 Unknown [id number] 2.16.84 0.1.297411.3.579.2.593 1971 Unknown [id number] 2.16.8 40.1.751162.3.579.2.727 1958 Self-pay 1958 Unknown [id number] 1958 Unknown [id number] Social History Date Type Detail Facility Tobacco [facility] Comment on above: denies Sex Assigned At Female [facility] Tobacco smoking status No Smokin g Status Entered [facility] Start: 05-17-2022 Tobacco smoking status Heavy t obacco smoker (finding) [facility] [place] Tobacco smoking status Never [facility] [place] Start: 03-05-2024 Tobacco smoking status Light t obacco smoker (finding) [facility] [place] Functional Status Date Assessment Result Facility 03-05-2024 Functional Status N/A [facility] [place] 05-17-2022 Functional Status N/A [facility] Clinical Note 03-05-2024 Note Date & Type Note Facility 03-05-2024 Note General Surgery Offi ce/Clinic Note Chief Complaint consultation for skin lesion HPI Staff 53 year old female presents on consultation from Dr. Carranza for changing nevus right breast. Verbalized noting nevus to right outer lower quadrant of breast many years ago. Reports recent change in size, shape and texture. Denies soreness or itching. History of Present Illness 53 yo female with h/o htn, hypercholesterolemia, hypothyroidism, GERD, IBS, Meniere disease, ENRIQUETA, lumbar radiculopathy, morbid obesity, referred for changing nevus on right breast; patient reports many year h/o skin lesion lower lateral right breast, some increase in size last several months, no scab or bleeding, no pain; no personal or fmhx of skin cancers. on Meloxicam daily; smokes daily. Review of Systems PHQ Score Initial Depression Screen Score: 0 SCORE ROS - Provider Constitutional: no fever, no [...] been reviewed and are negative or noncontributory. Physical Exam Vitals & Measurements HR: 114(Peripheral) RR: 16 BP: 134/81 HT: 63 in HT: 160 cm WT: 134.8 kg WT: 296.56 lb BMI: 52.66 Musculoskeletal: normal gait, digits and nails without infection, nodes, cyanosis, clubbing. Skin: no rashes, right lateral lower breast with 1.5 cm oval raised seborrheic keratosis no inflammation, no ulcers, no subcutaneous nodules, induration. Psychiatric/Neuro: oriented to time, place, person, judgement normal, affect appropriate for age, insight intact, no focal deficits. , review of old records completed , _ surgical options, risks, and possible complications with patient. Assessment/Plan 1. Seborrheic keratoses (L82.1: Other seborrheic keratosis) no need for excision at this time, call with problems/questions. Follow-up No qualifying data available Problem List/Past Medical History Ongoing Adrenal cortical hypofunction Anxiety BMI 50.0-59.9, adult Class 3 obesity Depression Dyshidrotic eczema Family history of colon cancer GERD (gastroesophageal reflux disease) Hemorrhoids History of Helicobacter pylori infection Hypercholesterolemia Hypertension Hypothyroidism IBS (irritable bowel syndrome) Lumbar radiculopathy Meniere's disease PTSD (post-traumatic stress disorder) Seborrheic keratoses Sleep apnea Tubular adenoma of colon Historical No qualifying data Procedure/Surgical History Colonoscopy (06/22/2022), Colonoscopy (08/10/2011), Appendectomy, Cholecystectomy, Colonoscopy, Colonoscopy, Dilation and curettage, Exploratory laparotomy, Exploratory laparotomy, Vaginal total hysterectomy. Medications Dulera 100 mcg-5 mcg/inh inhalation aerosol, 2 puff(s), Inhalation, BID hydrocortisone 10 mg Tab, 10 mg= 1 tab(s), Oral, Daily levothyroxine 50 mcg (0.05 mg) Tab, 50 mcg= 1 tab(s), Oral, Daily Levsin 0.125 mg SL Tab, 1-2 tabs, SubLingual, QID, PRN lisinopril 30 mg Tab, 30 mg= 1 tab(s), Oral, Daily meloxicam 15 mg Tab, 15 mg= 1 tab(s), Oral, Daily Multivitamins and Minerals Pantoprazole [address] Tab, 40 mg= 1 tab(s), Oral, Daily simvastatin 20 mg Tab, 20 mg= 1 tab(s), Oral, qPM Wellbutrin SR 200 mg oral tablet, extended release, 200 mg= 1 tab(s), Oral, BID Allergies Effexor (Dizziness) Social History Alcohol - Denies Alcohol Use, 05/17/2022 Substance Abuse - Denies Substance Abuse, 05/17/2022 Tobacco 4 or less cigarettes(less than 1/4 pack)/day in last 30 days Tobacco Use:. Never Smokeless Tobacco Use:. Cigarettes, 0.5 per day. Started age 23.0 Years. Yes, 03/05/2024 Family History Primary malignant neoplasm of colon: Sister. Primary malignant neoplasm of female genital organ: Mother. Immunizations Vaccine Date Status Comments influenza virus vaccine, inactivated - Not Given Patient Refuses SARS-CoV-2 (COVID-19) mRNA-1273 vaccine 05/16/2021 Recorded SARS-CoV-2 (COVID-19) Ad26 vaccine 04/29/2021 Recorded [facility] Comment on above: Result Comment: Elec tronically Signed By: QI ARGUETA, Nica Neri\Date and Time Signed: 03/05/24 10:01 EDT Clinical Note 06-22-2022 Note Date & Type Note Facility 06-22-2022 Note OPERATIVE NOTE OPERATION DATE: 06/22/2022 PREOPERATIVE DIAGNOSIS: Personal history of colon polyps. POSTOPERATIVE DIAGNOSIS: A 3 mm sigmoid polyp. PROCEDURE: Colonoscopy to cecum. SURGEON: Nica Israel M.D. ANESTHESIA: Monitored anesthesia care. ESTIMATED [...] pathology results. CC: Eleuterio Carranza M.D. [facility] Evaluation + Plan note 02-17-2022 Note Date & Type Note Facility 02-17-2022 Evaluation + Plan note Diagnostic Tests PendingInsulin Level Total 02/17/22 [facility] Evaluation + Plan note Note Date & Type Note Facility Evaluation + Plan note Future Appointments Appointment Date:04/29/2022 01:00:00 PM Scheduled Provider:Nica ISRAEL MD Location:[facility] Appointment Type:[address] Hospital course Narrative Note Date & Type Note Facility Hospital course Narrative No data available for this section [facility] Hospital Discharge instructions Note Date & Type Note Facility Hospital Discharge instructions No data available for this section [facility] Progress note Note Date & Type Note Facility Progress note No data available for this section [facility] Summary Purpose Family History No Family History Records Found No data available for this section No Family History Records Found Advance Directives No Advanced Directives Records FoundNo Advanced Directives Records Found Additional Source Comments Care Team (unrecognized sect ion and content) Personnel Name: Eleuterio Carranza MD Address: [address] [place] [address] Personnel Name: Eleuterio Carranza MD Address: Address: [address] [place] [address] Personnel Name: Eleuterio Carranza MD Address: Address: [address] [place] [address] Personnel Name: Eleuterio Carranza MD Address: Address: [address] [place] [address] INFORMATION SOURCE (unrecogn ized section and content) DATE CREATED AUTHOR 10/27/2022 [facility] DATE CREATED AUTHOR AUTHOR'S ORGANIZ ATION 03/07/2024 [facility] FOR RECORDS PERTAINING TO PATIENTS WHO ARE [...] BE BASED ON THE PRIMARY CLINICAL RECORDS. [facility]. provides no warranty or guarantee of the accuracy or completeness of information in this document.
== END 2024-05-02 09:00 | disposition home or self-care (01) ==
LOC: HEMC 07:29
PROVIDERS: PCP Family Medicine; Visit Provider Internal Medicine Hematology & Oncology
DX: D72.829 Elevated white blood cell count, unspecified (principal); D64.9 Anemia, unspecified; R70.0 Elevated erythrocyte sedimentation rate; F17.210 Nicotine dependence, cigarettes, uncomplicated; Z80.0 Family history of malignant neoplasm of digestive organs; Z80.6 Family history of leukemia; E27.1 Primary adrenocortical insufficiency; R16.0 Hepatomegaly, not elsewhere classified; R16.1 Splenomegaly, not elsewhere classified; Z90.710 Acquired absence of both cervix and uterus; Z90.49 Acquired absence of other specified parts of digestive tract

== ENCOUNTER 2024-08-27 07:47 | Outpatient (OUT) | payer OTHER, SELFPAY ==
--- NOTE | 2024-08-27 07:59 | CT_ITS ---
The [address] [address] Patient Name: SYLVIE ALTAMIRANO MRN: [id number] date: 1970 Sex: F Assigned Patient Location: [facility] Current Patient Location: [facility] Accession/Order Number: [id number] Exam Date: 08/27/2024 11:04 Report Date: 08/27/2024 11:07 At the request of: EJ PHAM MD Procedure: CT abdomen pelvis w con CT ABDOMEN AND PELVIS WITH INTRAVENOUS CONTRAST: CLINICAL HISTORY: Abdominal cramping and diarrhea weight gain. COMPARISON: CT abdomen and pelvis 06/22/2023 TECHNIQUE: Spiral images were obtained through the abdomen and pelvis following the administration of intravenous contrast. This CT exam was performed using one or more following dose reduction techniques: Automated exposure control, adjustment of the mA and/or kV according to patient size, or use of iterative reconstruction technique. FINDINGS: Lung Bases: [Minimal atelectasis/scarring.] Organs:Hepatic steatosis with hepatomegaly. Gallbladder has been removed. Splenomegaly measuring 14.5 cm. Portal vein pancreas and adrenal glands appear unremarkable. No enhancing renal mass or hydronephrosis. Cyst left kidney. Aorta appears normal in caliber.[ GI: Small hiatal hernia. Distal stomach is grossly unremarkable. Small bowel appears nondilated. No acute colonic abnormality.[ Pelvis:[Uterus has been removed. No adnexal mass. Urinary bladder is grossly unremarkable.] Peritoneum/Retroperitoneum:No free air or free fluid or lymphadenopathy.[ Abd wall/Bones:Abdominal wall demonstrate no acute findings. Osseous structures demonstrates degenerative change.[ CT/CT abdomen pelvis w con IMPRESSION: No acute process. Hepatosplenomegaly. Small hiatal hernia. Impression dictated by: Twin Durant Jr., D.O.08/27/2024 11:07 AM Dictation Location: [employer] Electronically authenticated by: [id number] Y Date: 08/27/2024 11:07
--- OUTSIDE RECORDS SUMMARY | 2024-08-27 08:06 | XMS_ITS | CCD ---
Author Organization [facility] Care Team Providers Care Forming Department End Finder Name Role Phone Eleuterio Carranza Primary Care [...] Unavailable HOY ., DR MCCLELLAN Attending Unavailable HUTCHINSON, DR MOISE Diaz Consulting Unavailable NILL, Nica Odonnell Attending Unavailable Eleuterio Carranza Referring Unavailable Allergies Allergy Classification Reported Allergen(s) Allergy Type Date of Onset Reaction(s) Facility (3 sources) venlafaxine; Translations: [venlafaxine] Drug Allergy Dizziness (finding) General Surgery [place] (1 source) venlafaxine Drug Allergy [facility] Medications Current Medications Medication Drug Class(es) Dates Sig (Normalized) Sig (Original) acetaminophen 325 mg / HYDROcodone bitartrate 5 mg oral tablet (2 sources) Opioid Agonist Start: 03-06-2017 [place] 325 mg-5 mg oral tablet See Instructions, [...] 20 tab(s), Refills(s) 0, Pharmacy: [facility] 1984 Start Date: 07/27/18 Status: [...] 04-01-20 Chronic Other aftercare (1 source) Other mcfp (current) drug therapy; 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 Normal [facility] XR CHEST 1 Von 10-26-2022 XR CHEST [...] PILO ELIAS Date: 2022-10-26 19:03 Normal [facility] CULTURE BLOODon 09-30-2022 Microscopic examination of blood, culture Culture Observations: NO GROWTH AT 5 DAYS. Normal [facility] Comment on above: Performed By: #### T 7, TSH, LIPID, CMP #### [facility] [address] [address] [address] Sona Cruz Microscopic examination of blood, culture Culture Observations: NO GROWTH AT 5 DAYS. Normal [facility] Comment on above: Performed By: #### T 7, TSH, LIPID, CMP #### [facility] [address] [place], [place] [address] Dr. Sona Cruz CULTURE URINEon 09-30-2022 CULTURE URINE Culture Observations: NO GROWTH. Normal [facility] Comment on above: Performed By: #### T 7, TSH, LIPID, CMP #### [facility] [address] [place], [place] [address] Dr. Sona Cruz UA RANDOM W/MICROSCOPICon BACTERIA NONE SEEN Normal NONE SEEN [facility] Comment on above: Performed By: #### T 7, TSH, LIPID, CMP #### [facility] [address] [address] [address] Sona Cruz Bilirubin Ql (U) Negative Normal NEGATIVE [facility] Comment on above: Performed By: #### T 7, TSH, LIPID, CMP #### [facility] [address] [place] [address] Dr. Sona Cruz CAST NONE SEEN Normal NONE SEEN [facility] Comment on above: Performed By: #### T 7, TSH, LIPID, CMP #### [facility] [address] [place] [address] Dr. Sona Cruz Clarity (U) CLEAR Normal CLEAR [facility] Comment on above: Performed By: #### T 7, TSH, LIPID, CMP #### [facility] [address] [place] [address] Dr. Sona Cruz Color (U) LT. YELLOW Normal YELLOW [facility] Comment on above: Performed By: #### T 7, TSH, LIPID, CMP #### [facility] [address] [place] [address] Dr. Sona Cruz Crystals LM Nom (Urine sed) SEEN Abnormal NONE SEEN [facility] Comment on above: Performed By: #### T 7, TSH, LIPID, CMP #### [facility] [address] [place] [address] Dr. Sona Cruz Epithelial cells LM Ql (Urine sed) FEW Abnormal NONE SEEN /RARE [facility] Comment on above: Performed By: #### T 7, TSH, LIPID, CMP #### [facility] [address] [place] [address] Dr. Sona Cruz Glucose Ql (U) Negative Normal NEGATIVE [facility] [place] Comment on above: Performed By: #### T 7, TSH, LIPID, CMP #### [facility] [address] [place] [address] Dr. Sona Cruz Hemoglobin Ql (U) Negative Normal NEGATIVE [facility] Comment on above: Performed By: #### T 7, TSH, LIPID, CMP #### [facility] [address] [place] [address] Dr. Sona Cruz Ketones Ql (U) Negative Normal NEGATIVE [facility] [place] Comment on above: Performed By: #### T 7, TSH, LIPID, CMP #### [facility] [address] [address] [address] Sona Cruz LEUKOCYTES Negative Normal NEGATIVE [facility] Comment on above: Performed By: #### T 7, TSH, LIPID, CMP #### [facility] [address] [address] [address] Sona Cruz MUCOUS NONE SEEN Normal NONE SEEN [facility] Comment on above: Performed By: #### T 7, TSH, LIPID, CMP #### [facility] [address] [address] [address] Sona Cruz Nitrite Ql (U) Negative Normal NEGATIVE [facility] Comment on above: Performed By: #### T 7, TSH, LIPID, CMP #### [facility] [address] [place] [address] Dr. Sona Cruz pH (U) 5.5 [pH] Normal 5-9 [facility] Comment on above: Performed By: #### T 7, TSH, LIPID, CMP #### [facility] [address] [place] [address] Dr. Sona Cruz RBC 0-2 Normal 0-2 [facility] Comment on above: Performed By: #### T 7, TSH, LIPID, CMP #### [facility] [address] [address] [address] Sona Cruz SPEC GRAVITY 1.025 Normal 1.005-<=1.025 [facility] Comment on above: Performed By: #### T 7, TSH, LIPID, CMP #### [facility] [address] [address] [address] Sona Cruz UA PROTEIN Negative Normal NEGATIVE/ TRACE [facility] Comment on above: Performed By: #### T 7, TSH, LIPID, CMP #### [facility] [address] [place] [address] Dr. Sona Cruz Urobilinogen Qn (U) 0.2 {Dayanna'U}/dL Normal 0.2 - 1. 0 [facility] Comment on above: Performed By: #### T 7, TSH, LIPID, CMP #### [facility] [address] [place] [address] Dr. Sona Cruz WBC 0-2 Abnormal NONE SEEN [facility] Comment on above: Performed By: #### T 7, TSH, LIPID, CMP #### [facility] [address] [address] [address] Sona Cruz VITAMIN B12on 09-30-2022 Cobalamin (Vitamin B12) [Mass/Vol] 383.0 pg/mL Normal 193.0-986.0 [facility] Comment on above: Performed By: #### V ITB12 #### [facility] [address] [place] [address] Dr. Sona Cruz DANIELLE-GARCIA VIRUS (EBV) AB PROFILEon 08-15-2022 EBV Ab VCA, IgG 71.8 U/mL Critically high 0.0-17.9 [facility] Comment on above: Result Comment: Nega tive <18.0 Equivocal 18.0 - 21.9 Positive >21.9 Performed By: #### T 7, TSH, LIPID, CMP #### [facility] [address] [place] [address] Dr. Sona Cruz EBV Ab VCA, IgM <36.0 Normal 0.0-35.9 [facility] Comment on above: Result Comment: Nega tive <36.0 Equivocal 36.0 - 43.9 Positive >43.9 Performed By: #### T 7, TSH, LIPID, CMP #### [facility] [address] [place] [address] Dr. Sona Cruz EBV Nuclear Antigen Ab, IgG 146.0 U/mL Critically high 0.0-17.9 [facility] Comment on above: Result Comment: Nega tive <18.0 Equivocal 18.0 - 21.9 Positive >21.9 Performed By: #### T 7, TSH, LIPID, CMP #### [facility] [address] [place] [address] Dr. Sona Cruz Interpretation: Comment Normal The [...] #### T 7, TSH, LIPID, CMP #### [facility] [address] [place] [address] Dr. Sona Cruz INSULINon 08-13-2022 Insulin 18.5 uIU/mL Normal 2.6-24.9 [facility] Comment on above: Performed By: #### T 7, TSH, LIPID, CMP #### [facility] [address] [place] [address] Dr. Sona Cruz CBC AUTO DIFFon 08-12-2022 BASO # 0.1 103/ul Normal 0.0-0.1 [facility] Comment on above: Performed By: #### T 7, TSH, LIPID, CMP #### [facility] [address] [address] [address] Sona Cruz Basophils/100 WBC (Bld) 0.5 % Normal 0.2-2.0 [facility] Comment on above: Performed By: #### T 7, TSH, LIPID, CMP #### [facility] [address] [address] [address] Sona Cruz EO # 0.1 103/ul Normal 0.0-0.7 [facility] Comment on above: Performed By: #### T 7, TSH, LIPID, CMP #### [facility] [address] [place] [address] Dr. Sona Cruz Eosinophils/100 WBC (Bld) 0.9 % Normal 0.9-7.0 [facility] Comment on above: Performed By: #### T 7, TSH, LIPID, CMP #### [facility] [address] [place] [address] Dr. Sona Cruz Erythrocyte distribution width (RBC) [Ratio] 14.4 % Normal 11.0-15.0 [facility] Comment on above: Performed By: #### T 7, TSH, LIPID, CMP #### [facility] [address] [place] [address] Dr. Sona Cruz Hematocrit (Bld) [Volume fraction] 41.8 % Normal 36.0-48.0 [facility] Comment on above: Performed By: #### T 7, TSH, LIPID, CMP #### [facility] [address] [place] [address] Dr. Sona Cruz Hemoglobin (Bld) [Mass/Vol] 14.0 g/dL Normal 12.0-16.0 [facility] Comment on above: Performed By: #### T 7, TSH, LIPID, CMP #### [facility] [address] [place] [address] Dr. Sona Cruz IG # 0.12 10e3/ul Critically high 0.00-0.03 [facility] Comment on above: Performed By: #### T 7, TSH, LIPID, CMP #### [facility] [address] [place] [address] Dr. Sona Cruz IG % 1.0 % Critically high 0.0-0.5 [facility] Comment on above: Performed By: #### T 7, TSH, LIPID, CMP #### [facility] [address] [place] [address] Dr. Sona Cruz LYMPH # 1.8 103/ul Normal 1.2-3.8 [facility] Comment on above: Performed By: #### T 7, TSH, LIPID, CMP #### [facility] [address] [place] [address] Dr. Sona Cruz Lymphocytes/100 WBC (Bld) 14.4 % Critically low 20.5-60.0 [facility] Comment on above: Performed By: #### T 7, TSH, LIPID, CMP #### [facility] [address] [place] [address] Dr. Sona Cruz MANUAL DIFF REQ NO Normal [facility] Comment on above: Performed By: #### T 7, TSH, LIPID, CMP #### [facility] [address] [place] [address] Dr. Sona Cruz MCH (RBC) [Entitic mass] 30.0 pg Normal 26.7-34.0 [facility] Comment on above: Performed By: #### T 7, TSH, LIPID, CMP #### [facility] [address] [place] [address] Dr. Sona Cruz MCHC (RBC) [Mass/Vol] 33.5 g/dL Normal 29.9-35.2 [facility] Comment on above: Performed By: #### T 7, TSH, LIPID, CMP #### [facility] [address] [place] [address] Dr. Sona rCuz MCV (RBC) [Entitic vol] 89.5 fL Normal 81.0-99.0 [facility] Comment on above: Performed By: #### T 7, TSH, LIPID, CMP #### [facility] [address] [place] [address] Dr. Sona Cruz MONO # 0.8 103/ul Normal 0.3-0.8 [facility] Comment on above: Performed By: #### T 7, TSH, LIPID, CMP #### [facility] [address] [place] [address] Dr. Sona Cruz Monocytes/100 WBC (Bld) 6.6 % Normal 1.7-12.0 [facility] Comment on above: Performed By: #### T 7, TSH, LIPID, CMP #### [facility] [address] [place] [address] Dr. Sona Cruz NEUT # 9.5 103/ul Critically high 1.4-6.5 [facility] Comment on above: Performed By: #### T 7, TSH, LIPID, CMP #### [facility] [address] [place] [address] Dr. Sona Cruz Neutrophils/100 WBC (Bld) 76.6 % Critically high 43.0-75.0 [facility] Comment on above: Performed By: #### T 7, TSH, LIPID, CMP #### [facility] [address] [place] [address] Dr. Sona Cruz Platelet mean volume (Bld) [Entitic vol] 10.5 fL Normal 9.5-13.5 [facility] Comment on above: Performed By: #### T 7, TSH, LIPID, CMP #### [facility] [address] [place] [address] Dr. Sona Cruz PLT 261 103/ul Normal 150-450 [facility] Comment on above: Performed By: #### T 7, TSH, LIPID, CMP #### [facility] [address] [place] [address] Dr. Sona Cruz RBC 4.67 106/ul Normal 4.20-5.40 [facility] Comment on above: Performed By: #### T 7, TSH, LIPID, CMP #### [facility] [address] [place] [address] Dr. Sona Cruz WBC 12.4 103/ul Critically high 4.0-11.0 [facility] Comment on above: Performed By: #### T 7, TSH, LIPID, CMP #### [facility] [address] [place] [address] Dr. Sona Cruz CULTURE BLOODon 08-12-2022 Microscopic examination of blood, culture Culture Observations: NO GROWTH AT 5 DAYS. Isolate 1 BC_BA_NA Normal [facility] Comment on above: Performed By: #### T 7, TSH, LIPID, CMP #### [facility] [address] [place] [address] Dr. Sona Cruz Microscopic examination of blood, culture Culture Observations: NO GROWTH AT 5 DAYS. Isolate 1 BC_BA_NA Normal [facility] Comment on above: Performed By: #### T 7, TSH, LIPID, CMP #### [facility] [address] [place] [address] Dr. Sona Cruz CULTURE URINEon 08-12-2022 CULTURE URINE Culture Observations: NO GROWTH. Normal [facility] Comment on above: Performed By: #### U RCX #### [facility] [address] [place] [address] Dr. Sona Cruz FREE THYROXINE INDEX T7on FTI 3.65 Normal 1.30-4.50 [facility] Comment on above: Performed By: #### T 7, TSH, LIPID, CMP #### [facility] [address] [address] [address] Sona Cruz T3U 38.0 % Normal 30.0-39.0 [facility] Comment on above: Performed By: #### T 7, TSH, LIPID, CMP #### [facility] [address] [address] [address] Sona Cruz T4 [Mass/Vol] 9.60 ug/dL Normal 4.80-13.90 [facility] Comment on above: Performed By: #### T 7, TSH, LIPID, CMP #### [facility] [address] [place] [address] Dr. Sona Cruz GLYCOHEMOGLOBIN A1Con 2022 ADA RECOMMENDATION SEE BELOW Normal [facility] Comment on above: Result Comment: ADA RECOMMENDED LIMIT 4.0 - 6.0 ADA THERAPEUTIC TARGET < 7.0 ACTION SUGGESTED > 7.0 Performed By: #### T 7, TSH, LIPID, CMP #### [facility] [address] [address] [address] Sona Curz Glucose [Mass/Vol] 111 mg/dL Normal [facility] Comment on above: Performed By: #### T 7, TSH, LIPID, CMP #### [facility] [address] [address] [address] Sona Cruz HbA1c (Bld) [Mass fraction] 5.5 % Normal 4.5-6.2 [facility] Comment on above: Performed By: #### T 7, TSH, LIPID, CMP #### [facility] [address] [address] [address] Sona Cruz IRONon 08-12-2022 Iron [Mass/Vol] 71.0 ug/dL Normal 50.0-170.0 [facility] Comment on above: Performed By: #### T 7, TSH, LIPID, CMP #### [facility] [address] [address] [address] Sona Cruz LIPID PROFILEon 08-12-2022 CHOL-HDL RATIO NORM SEE BELOW Normal [facility] Comment on above: Result Comment: 3.3 - 4.4 LOW RISK 4.4 - 7.1 AVERAGE RISK 7.1 - 11.0 MODERATE RISK >11.0 HIGH RISK Performed By: #### T 7, TSH, LIPID, CMP #### [facility] [address] [place] [address] Dr. Sona Cruz Cholesterol [Mass/Vol] 216 mg/dL Critically high <=200 [facility] Comment on above: Performed By: #### T 7, TSH, LIPID, CMP #### [facility] [address] [place] [address] Dr. Sona Cruz Cholesterol in HDL [Mass/Vol] 64 mg/dL Critically high 40-60 [facility] Comment on above: Performed By: #### T 7, TSH, LIPID, CMP #### [facility] [address] [place] [address] Dr. Sona Cruz Cholesterol in LDL [Mass/Vol] 132.4 mg/dL Normal [facility] Comment on above: Performed By: #### T 7, TSH, LIPID, CMP #### [facility] [address] [address] [address] Sona Cruz Cholesterol.total/Cho lesterol in HDL [Mass ratio] 3.4 {ratio} Normal [facility] Comment on above: Performed By: #### T 7, TSH, LIPID, CMP #### [facility] [address] [place] [address] Dr. Sona Crzu HDL NORMAL > or = 60 mg/dl - LOW CARDIOVASCULAR RISK <40 mg/dl - HIGH CARDIOVASCULAR RISK Normal [facility] Comment on above: Performed By: #### T 7, TSH, LIPID, CMP #### [facility] [address] [place] [address] Dr. Sona Cruz LDL CALC NORMAL SEE BELOW Normal [facility] Comment on above: Result Comment: <100 mg/dl OPTIMAL 100 - 129 mg/dl NEAR OR ABOVE OPTIMAL 130 - 159 mg/dl BORDERLINE HIGH 160 - 189 mg/dl HIGH >190 mg/dl VERY HIGH Performed By: #### T 7, TSH, LIPID, CMP #### [facility] [address] [address] [address] Sona Cruz Triglyceride [Mass/Vol] 98 mg/dL Normal <=150 [facility] Comment on above: Performed By: #### T 7, TSH, LIPID, CMP #### [facility] [address] [address] [address] Sona Cruz VLDL CALC 19.6 mg/dL Normal [facility] Comment on above: Performed By: #### T 7, TSH, LIPID, CMP #### [facility] [address] [address] [address] Sona Cruz MONOon 08-12-2022 Monocytes (Bld) [#/Vol] Negative Normal NEGATIVE [facility] Comment on above: Performed By: #### I MADDI #### [facility] [address] [place] [address] Dr. Sona Cruz PROF 14(COMP METB)on 023 Albumin [Mass/Vol] 3.9 g/dL Normal 3.4-5.0 [facility] Comment on above: Performed By: #### T 7, TSH, LIPID, CMP #### [facility] [address] [place] [address] Dr. Sona Cruz Albumin/Globulin [Mass ratio] 1.1 {ratio} Normal [facility] Comment on above: Performed By: #### T 7, TSH, LIPID, CMP #### [facility] [address] [place] [address] Dr. Sona Cruz ALP [Catalytic activity/Vol] 106 U/L Normal 46-116 [facility] Comment on above: Performed By: #### T 7, TSH, LIPID, CMP #### [facility] [address] [place] [address] Dr. Sona Cruz ALT [Catalytic activity/Vol] 22 U/L Normal 14-59 [facility] Comment on above: Performed By: #### T 7, TSH, LIPID, CMP #### [facility] [address] [place] [address] Dr. Sona Cruz Anion gap [Moles/Vol] 12.5 mmol/L Normal [facility] Comment on above: Performed By: #### T 7, TSH, LIPID, CMP #### [facility] [address] [address] [address] Sona Cruz AST [Catalytic activity/Vol] 15 U/L Normal 15-37 [facility] Comment on above: Performed By: #### T 7, TSH, LIPID, CMP #### [facility] [address] [address] [address] Sona Cruz Bilirubin [Mass/Vol] 0.5 mg/dL Normal 0.2-1.0 [facility] Comment on above: Performed By: #### T 7, TSH, LIPID, CMP #### [facility] [address] [place] [address] Dr. Sona Cruz Calcium [Mass/Vol] 9.6 mg/dL Normal 8.5-10.1 [facility] Comment on above: Performed By: #### T 7, TSH, LIPID, CMP #### [facility] [address] [place] [address] Dr. Sona Cruz Chloride [Moles/Vol] 102 mmol/L Normal 98-107 [facility] Comment on above: Performed By: #### T 7, TSH, LIPID, CMP #### [facility] [address] [place] [address] Dr. Sona Cruz CO2 [Moles/Vol] 28.3 mmol/L Normal 21.0-32.0 [facility] Comment on above: Performed By: #### T 7, TSH, LIPID, CMP #### [facility] [address] [place] [address] Dr. Sona Cruz Creatinine [Mass/Vol] 0.62 mg/dL Normal 0.55-1.02 [facility] Comment on above: Performed By: #### T 7, TSH, LIPID, CMP #### [facility] [address] [place] [address] Dr. Sona Cruz EGFR-AF VINCENTIAN >60 Normal >=60 [facility] Comment on above: Performed By: #### T 7, TSH, LIPID, CMP #### [facility] [address] [address] [address] Sona Cruz EGFR-NON AF VINCENTIAN >60 Normal >=60 [facility] Comment on above: Performed By: #### T 7, TSH, LIPID, CMP #### [facility] [address] [address] [address] Sona Cruz Globulin (S) [Mass/Vol] 3.7 g/dL Normal [facility] Comment on above: Performed By: #### T 7, TSH, LIPID, CMP #### [facility] [address] [address] [address] Sona Cruz Glucose [Mass/Vol] 106 mg/dL Normal 74-106 [facility] Comment on above: Performed By: #### T 7, TSH, LIPID, CMP #### [facility] [address] [address] [address] Sona Cruz Potassium [Moles/Vol] 3.8 mmol/L Normal 3.5-5.1 [facility] Comment on above: Performed By: #### T 7, TSH, LIPID, CMP #### [facility] [address] [address] [address] Sona Cruz Protein [Mass/Vol] 7.6 g/dL Normal 6.4-8.2 [facility] Comment on above: Performed By: #### T 7, TSH, LIPID, CMP #### [facility] [address] [address] [address] Sona Cruz Sodium [Moles/Vol] 139 mmol/L Normal 136-145 [facility] Comment on above: Performed By: #### T 7, TSH, LIPID, CMP #### [facility] [address] [address] [address] Sona Cruz Urea nitrogen [Mass/Vol] 25.0 mg/dL Critically high 7.0-18.0 [facility] Comment on above: Performed By: #### T 7, TSH, LIPID, CMP #### [facility] [address] [address] [address] Sona Cruz Urea nitrogen/Creatinine [Mass ratio] 40.3 mg/mg Normal [facility] Comment on above: Performed By: #### T 7, TSH, LIPID, CMP #### [facility] [address] [place] [address] Dr. Sona Cruz PROTIMEon 08-12-2022 INR Coag (PPP) [Relative time] {INR} Normal [facility] Comment on above: Performed By: #### T 7, TSH, LIPID, CMP #### [facility] [address] [place] [address] Dr. Sona Cruz INR GUIDELINES SEE BELOW Normal [facility] [place] Comment on above: Result Comment: CAROL RED INR: 2.0 - 3.0 CONDITIONS NOT LISTED BELOW 2.5 - 3.5 FOR PROSTHETIC HEART VALVE REPLACEMENT 2.5 - 3.5 RECURRENT THROMBOSIS Performed By: #### T 7, TSH, LIPID, CMP #### [facility] [address] [place] [address] Dr. Sona Cruz PT Coag (PPP) [Time] 9.7 s Normal 9.0-11.6 [facility] Comment on above: Performed By: #### T 7, TSH, LIPID, CMP #### [facility] [address] [place] [address] Dr. Sona Cruz PTTon 08-12-2022 aPTT Coag (Bld) [Time] 27.1 s Normal 22.3-36.2 [facility] Comment on above: Performed By: #### T 7, TSH, LIPID, CMP #### [facility] [address] [place] [address] Dr. Sona Cruz SED RATE HUTCHINSONERGRENon 2022 SED RATE 47 mm/hr Critically high <=30 [facility] Comment on above: Performed By: #### T 7, TSH, LIPID, CMP #### [facility] [address] [place] [address] Dr. Sona Cruz TSHon 08-12-2022 TSH 2.474 uIU/mL Normal 0.358-3.740 [facility] Comment on above: Performed By: #### T 7, TSH, LIPID, CMP #### [facility] [address] [address] [address] Sona Cruz UA RANDOM W/MICROSCOPICon BACTERIA NONE SEEN Normal NONE SEEN [facility] Comment on above: Performed By: #### T 7, TSH, LIPID, CMP #### [facility] [address] [place] [address] Dr. Sona Cruz Bilirubin Ql (U) Negative Normal NEGATIVE [facility] Comment on above: Performed By: #### T 7, TSH, LIPID, CMP #### [facility] [address] [place] [address] Dr. Sona Cruz CAST NONE SEEN Normal NONE SEEN [facility] Comment on above: Performed By: #### T 7, TSH, LIPID, CMP #### [facility] [address] [place] [address] Dr. Sona Cruz Clarity (U) CLEAR Normal CLEAR [facility] Comment on above: Performed By: #### T 7, TSH, LIPID, CMP #### [facility] [address] [place] [address] Dr. Sona Cruz Color (U) YELLOW Normal YELLOW [facility] Comment on above: Performed By: #### T 7, TSH, LIPID, CMP #### [facility] [address] [place] [address] Dr. Sona Cruz Crystals LM Nom (Urine sed) NONE SEEN Normal NONE SEEN [facility] Comment on above: Performed By: #### T 7, TSH, LIPID, CMP #### [facility] [address] [place] [address] Dr. Sona Cruz Epithelial cells LM Ql (Urine sed) NONE SEEN Normal NONE SEEN /RARE [facility] Comment on above: Performed By: #### T 7, TSH, LIPID, CMP #### [facility] [address] [place] [address] Dr. Sona Cruz Glucose Ql (U) Negative Normal NEGATIVE [facility] [place] Comment on above: Performed By: #### T 7, TSH, LIPID, CMP #### [facility] [address] [place] [address] Dr. Sona Cruz Hemoglobin Ql (U) Negative Normal NEGATIVE [facility] Comment on above: Performed By: #### T 7, TSH, LIPID, CMP #### [facility] [address] [address] [address] Sona Cruz Ketones Ql (U) Negative Normal NEGATIVE [facility] [place] Comment on above: Performed By: #### T 7, TSH, LIPID, CMP #### [facility] [address] [address] [address] Sona Cruz LEUKOCYTES Negative Normal NEGATIVE [facility] Comment on above: Performed By: #### T 7, TSH, LIPID, CMP #### [facility] [address] [place] [address] Dr. Sona Cruz MUCOUS NONE SEEN Normal NONE SEEN [facility] Comment on above: Performed By: #### T 7, TSH, LIPID, CMP #### [facility] [address] [place] [address] Dr. Sona Cruz Nitrite Ql (U) Negative Normal NEGATIVE [facility] [place] Comment on above: Performed By: #### T 7, TSH, LIPID, CMP #### [facility] [address] [place] [address] Dr. Sona Cruz pH (U) 6.0 [pH] Normal 5-9 [facility] Comment on above: Performed By: #### T 7, TSH, LIPID, CMP #### [facility] [address] [place] [address] Dr. Sona Cruz RBC 0-2 Normal 0-2 [facility] Comment on above: Performed By: #### T 7, TSH, LIPID, CMP #### [facility] [address] [place] [address] Dr. Sona Cruz SPEC GRAVITY 1.010 Normal 1.005-<=1.025 [facility] Comment on above: Performed By: #### T 7, TSH, LIPID, CMP #### [facility] [address] [place] [address] Dr. Sona Cruz UA PROTEIN Negative Normal NEGATIVE/ TRACE [facility] Comment on above: Performed By: #### T 7, TSH, LIPID, CMP #### [facility] [address] [place] [address] Dr. Sona Cruz Urobilinogen Qn (U) 0.2 {Dayanna'U}/dL Normal 0.2 - 1. 0 [facility] Comment on above: Performed By: #### T 7, TSH, LIPID, CMP #### [facility] [address] [place] [address] Dr. Sona Cruz WBC NONE SEEN Normal NONE SEEN [facility] Comment on above: Performed By: #### T 7, TSH, LIPID, CMP #### [facility] [address] [place] [address] Dr. Sona Cruz VITAMIN B12on 08-12-2022 Cobalamin (Vitamin B12) [Mass/Vol] 542.0 pg/mL Normal 193.0-986.0 [facility] Comment on above: Performed By: #### T 7, TSH, LIPID, CMP #### [facility] [address] [place] [address] Dr. Sona Cruz VITAMIN D 25 OHon 08-12-2022 VIT D 25-OH 23.3 ng/mL Normal [facility] Comment on above: Performed By: #### T 7, TSH, LIPID, CMP #### [facility] [address] [place] [address] Dr. Sona Cruz VIT D RANGES SEE BELOW Normal [facility] Comment on above: Result Comment: <20 ng/mL Vit D deficient 20 - <30 ng/mL Vit D insufficient 30 - 100 ng/mL Vit D sufficient >100 ng/mL Potential Toxicity Performed By: #### T 7, TSH, LIPID, CMP #### [facility] [address] [place] [address] Dr. Sona Cruz ANTISTREPTOLYSIN O AB (ASO)o n 06-18-2022 Antistreptolysin O Ab 561.7 IU/mL Critically high 0.0-200. 0 [facility] Comment on above: Performed By: #### T 7, TSH, LIPID, CMP #### [facility] [address] [place] [address] Dr. Sona Cruz INSULINon 06-18-2022 Insulin 11.2 uIU/mL Normal 2.6-24.9 [facility] Comment on above: Performed By: #### T 7, TSH, LIPID, CMP #### [facility] [address] [place] [address] Dr. Sona Cruz CBC AUTO DIFFon 06-17-2022 BASO # 0.1 103/ul Normal 0.0-0.1 [facility] Comment on above: Performed By: #### T 7, TSH, LIPID, CMP #### [facility] [address] [place] [address] Dr. Sona Cruz Basophils/100 WBC (Bld) 0.6 % Normal 0.2-2.0 [facility] Comment on above: Performed By: #### T 7, TSH, LIPID, CMP #### [facility] [address] [place] [address] Dr. Sona Cruz EO # 0.2 103/ul Normal 0.0-0.7 [facility] Comment on above: Performed By: #### T 7, TSH, LIPID, CMP #### [facility] [address] [place] [address] Dr. Sona Cruz Eosinophils/100 WBC (Bld) 1.8 % Normal 0.9-7.0 [facility] Comment on above: Performed By: #### T 7, TSH, LIPID, CMP #### [facility] [address] [place] [address] Dr. Sona Cruz Erythrocyte distribution width (RBC) [Ratio] 15.3 % Critically high 11.0-15.0 [facility] Comment on above: Performed By: #### T 7, TSH, LIPID, CMP #### [facility] [address] [place] [address] Dr. Sona Cruz Hematocrit (Bld) [Volume fraction] 39.1 % Normal 36.0-48.0 [facility] Comment on above: Performed By: #### T 7, TSH, LIPID, CMP #### [facility] [address] [place] [address] Dr. Sona Cruz Hemoglobin (Bld) [Mass/Vol] 12.7 g/dL Normal 12.0-16.0 [facility] Comment on above: Performed By: #### T 7, TSH, LIPID, CMP #### [facility] [address] [place] [address] Dr. Sona Cruz IG # 0.15 10e3/ul Critically high 0.00-0.03 [facility] Comment on above: Performed By: #### T 7, TSH, LIPID, CMP #### [facility] [address] [place] [address] Dr. Sona Cruz IG % 1.3 % Critically high 0.0-0.5 [facility] Comment on above: Performed By: #### T 7, TSH, LIPID, CMP #### [facility] [address] [place] [address] Dr. Sona Cruz LYMPH # 2.0 103/ul Normal 1.2-3.8 [facility] Comment on above: Performed By: #### T 7, TSH, LIPID, CMP #### [facility] [address] [place] [address] Dr. Sona Cruz Lymphocytes/100 WBC (Bld) 16.3 % Critically low 20.5-60.0 [facility] Comment on above: Performed By: #### T 7, TSH, LIPID, CMP #### [facility] [address] [place] [address] Dr. Sona Cruz MANUAL DIFF REQ NO Normal [facility] Comment on above: Performed By: #### T 7, TSH, LIPID, CMP #### [facility] [address] [place] [address] Dr. Sona Cruz MCH (RBC) [Entitic mass] 28.7 pg Normal 26.7-34.0 [facility] Comment on above: Performed By: #### T 7, TSH, LIPID, CMP #### [facility] [address] [place] [address] Dr. Sona Cruz MCHC (RBC) [Mass/Vol] 32.5 g/dL Normal 29.9-35.2 [facility] Comment on above: Performed By: #### T 7, TSH, LIPID, CMP #### [facility] [address] [address] [address] Sona Cruz MCV (RBC) [Entitic vol] 88.3 fL Normal 81.0-99.0 [facility] Comment on above: Performed By: #### T 7, TSH, LIPID, CMP #### [facility] [address] [place] [address] Dr. Sona Cruz MONO # 0.8 103/ul Normal 0.3-0.8 [facility] Comment on above: Performed By: #### T 7, TSH, LIPID, CMP #### [facility] [address] [place] [address] Dr. Sona Cruz Monocytes/100 WBC (Bld) 6.4 % Normal 1.7-12.0 [facility] Comment on above: Performed By: #### T 7, TSH, LIPID, CMP #### [facility] [address] [place] [address] Dr. Sona Cruz NEUT # 8.8 103/ul Critically high 1.4-6.5 [facility] Comment on above: Performed By: #### T 7, TSH, LIPID, CMP #### [facility] [address] [place] [address] Dr. Sona Cruz Neutrophils/100 WBC (Bld) 73.6 % Normal 43.0-75.0 [facility] Comment on above: Performed By: #### T 7, TSH, LIPID, CMP #### [facility] [address] [place] [address] Dr. Sona Cruz Platelet mean volume (Bld) [Entitic vol] 10.3 fL Normal 9.5-13.5 [facility] Comment on above: Performed By: #### T 7, TSH, LIPID, CMP #### [facility] [address] [place] [address] Dr. Sona Cruz PLT 289 103/ul Normal 150-450 [facility] Comment on above: Performed By: #### T 7, TSH, LIPID, CMP #### [facility] [address] [place] [address] Dr. Sona Cruz RBC 4.43 106/ul Normal 4.20-5.40 [facility] Comment on above: Performed By: #### T 7, TSH, LIPID, CMP #### [facility] [address] [address] [address] Sona Cruz WBC 12.0 103/ul Critically high 4.0-11.0 [facility] Comment on above: Performed By: #### T 7, TSH, LIPID, CMP #### [facility] [address] [address] [address] Sona Cruz CULTURE URINEon 06-17-2022 CULTURE URINE Culture Observations: MODERATE GROWTH OF MIXED GENITAL DESI. NO POTENTIAL PATHOGENS SEEN. Normal [facility] Comment on above: Performed By: #### U RCX #### [facility] [address] [address] [address] Sona Cruz [facility]on SARS-CoV-2 (COVID-19) RNA PAVAN+probe Ql (Unsp spec) Not detected Normal NOT DETECTED [facility] Comment on above: Result Comment: This test is not yet approved or cleared by the [place] FDA. When there are no FDA-approved or cleared tests available, and other criteria are met, FDA can make tests available under an emergency access mechanism called an Emergency Use Authorization (EUA). The EUA for this test is supported by the [employer] of Health and Human Service's (HHS's) declaration [...] #### T 7, TSH, LIPID, CMP #### [facility] [address] [address] [address] Sona Cruz FREE THYROXINE INDEX T7on FTI 2.89 Normal 1.30-4.50 [facility] Comment on above: Performed By: #### I MADDI #### [facility] [address] [address] [address] Sona Cruz T3U 34.0 % Normal 30.0-39.0 [facility] Comment on above: Performed By: #### I MADDI #### [facility] [address] [address] [address] Sona Cruz T4 [Mass/Vol] 8.50 ug/dL Normal 4.80-13.90 [facility] Comment on above: Performed By: #### I MADDI #### [facility] [address] [address] [address] Sona Cruz GLYCOHEMOGLOBIN A1Con 2022 ADA RECOMMENDATION SEE BELOW Normal [facility] Comment on above: Result Comment: ADA RECOMMENDED LIMIT 4.0 - 6.0 ADA THERAPEUTIC TARGET < 7.0 ACTION SUGGESTED > 7.0 Performed By: #### T 7, TSH, LIPID, CMP #### [facility] [address] [address] [address] Sona Cruz Glucose [Mass/Vol] 114 mg/dL Normal [facility] Comment on above: Performed By: #### T 7, TSH, LIPID, CMP #### [facility] [address] [address] [address] Sona Cruz HbA1c (Bld) [Mass fraction] 5.6 % Normal 4.5-6.2 [facility] Comment on above: Performed By: #### T 7, TSH, LIPID, CMP #### [facility] [address] [address] [address] Sona Cruz IRONon 06-17-2022 Iron [Mass/Vol] 50.0 ug/dL Normal 50.0-170.0 [facility] Comment on above: Performed By: #### I MADDI #### [facility] [address] [address] [address] Sona Cruz LIPID PROFILEon 06-17-2022 CHOL-HDL RATIO NORM SEE BELOW Normal [facility] Comment on above: Result Comment: 3.3 - 4.4 LOW RISK 4.4 - 7.1 AVERAGE RISK 7.1 - 11.0 MODERATE RISK >11.0 HIGH RISK Performed By: #### I MADDI #### [facility] [address] [place] [address] Dr. Sona Cruz Cholesterol [Mass/Vol] 203 mg/dL Critically high <=200 [facility] Comment on above: Performed By: #### I MADDI #### [facility] [address] [place] [address] Dr. Sona Cruz Cholesterol in HDL [Mass/Vol] 74 mg/dL Critically high 40-60 [facility] Comment on above: Performed By: #### I MADDI #### [facility] [address] [place] [address] Dr. Sona Cruz Cholesterol in LDL [Mass/Vol] 112.4 mg/dL Normal [facility] Comment on above: Performed By: #### I MADDI #### [facility] [address] [place] [address] Dr. Sona Cruz Cholesterol.total/Cho lesterol in HDL [Mass ratio] 2.7 {ratio} Normal [facility] Comment on above: Performed By: #### I MADDI #### [facility] [address] [place] [address] Dr. Sona Cruz HDL NORMAL > or = 60 mg/dl - LOW CARDIOVASCULAR RISK <40 mg/dl - HIGH CARDIOVASCULAR RISK Normal [facility] Comment on above: Performed By: #### I MADDI #### [facility] [address] [place] [address] Dr. Sona Cruz LDL CALC NORMAL SEE BELOW Normal [facility] Comment on above: Result Comment: <100 mg/dl OPTIMAL 100 - 129 mg/dl NEAR OR ABOVE OPTIMAL 130 - 159 mg/dl BORDERLINE HIGH 160 - 189 mg/dl HIGH >190 mg/dl VERY HIGH Performed By: #### I MADDI #### [facility] [address] [place] [address] Dr. Sona Cruz Triglyceride [Mass/Vol] 83 mg/dL Normal <=150 [facility] Comment on above: Performed By: #### I MADDI #### [facility] [address] [place] [address] Dr. Sona Cruz VLDL CALC 16.6 mg/dL Normal [facility] Comment on above: Performed By: #### I MADDI #### [facility] [address] [place] [address] Dr. Sona Cruz PROF 14(COMP METB)on 023 Albumin [Mass/Vol] 3.5 g/dL Normal 3.4-5.0 [facility] Comment on above: Performed By: #### I MADDI #### [facility] [address] [place] [address] Dr. Sona Cruz Albumin/Globulin [Mass ratio] 0.9 {ratio} Normal [facility] Comment on above: Performed By: #### I MADDI #### [facility] [address] [place] [address] Dr. Sona Cruz ALP [Catalytic activity/Vol] 105 U/L Normal 46-116 [facility] Comment on above: Performed By: #### I MADDI #### [facility] [address] [place] [address] Dr. Sona Cruz ALT [Catalytic activity/Vol] 18 U/L Normal 14-59 [facility] Comment on above: Performed By: #### I MADDI #### [facility] [address] [place] [address] Dr. Sona Cruz Anion gap [Moles/Vol] 10.8 mmol/L Normal [facility] Comment on above: Performed By: #### I MADDI #### [facility] [address] [place] [address] Dr. Sona Cruz AST [Catalytic activity/Vol] 16 U/L Normal 15-37 [facility] Comment on above: Performed By: #### I MADDI #### [facility] [address] [place] [address] Dr. Sona Cruz Bilirubin [Mass/Vol] 0.4 mg/dL Normal 0.2-1.0 [facility] Comment on above: Performed By: #### I MADDI #### [facility] [address] [place] [address] Dr. Sona Cruz Calcium [Mass/Vol] 9.2 mg/dL Normal 8.5-10.1 [facility] Comment on above: Performed By: #### I MADDI #### [facility] [address] [place] [address] Dr. Sona Cruz Chloride [Moles/Vol] 101 mmol/L Normal 98-107 [facility] Comment on above: Performed By: #### I MADDI #### [facility] [address] [place] [address] Dr. Sona Cruz CO2 [Moles/Vol] 31.4 mmol/L Normal 21.0-32.0 [facility] Comment on above: Performed By: #### I MADDI #### [facility] [address] [place] [address] Dr. Sona Cruz Creatinine [Mass/Vol] 0.64 mg/dL Normal 0.55-1.02 [facility] Comment on above: Performed By: #### I MADDI #### [facility] [address] [place] [address] Dr. Sona Cruz EGFR-AF VINCENTIAN >60 Normal >=60 [facility] Comment on above: Performed By: #### I MADDI #### [facility] [address] [place] [address] Dr. Sona Cruz EGFR-NON AF VINCENTIAN >60 Normal >=60 [facility] Comment on above: Performed By: #### I MADDI #### [facility] [address] [place] [address] Dr. Sona Cruz Globulin (S) [Mass/Vol] 3.9 g/dL Normal [facility] Comment on above: Performed By: #### I MADDI #### [facility] [address] [place] [address] Dr. Sona Cruz Glucose [Mass/Vol] 97 mg/dL Normal 74-106 [facility] Comment on above: Performed By: #### I MADDI #### [facility] [address] [place] [address] Dr. Sona Cruz Potassium [Moles/Vol] 4.2 mmol/L Normal 3.5-5.1 [facility] Comment on above: Performed By: #### I MADDI #### [facility] [address] [address] [address] Sona Cruz Protein [Mass/Vol] 7.4 g/dL Normal 6.4-8.2 [facility] Comment on above: Performed By: #### I MADDI #### [facility] [address] [address] [address] Sona Cruz Sodium [Moles/Vol] 139 mmol/L Normal 136-145 [facility] Comment on above: Performed By: #### I MADDI #### [facility] [address] [address] [address] Sona Cruz Urea nitrogen [Mass/Vol] 21.0 mg/dL Critically high 7.0-18.0 [facility] Comment on above: Performed By: #### I MADDI #### [facility] [address] [address] [address] Sona Cruz Urea nitrogen/Creatinine [Mass ratio] 32.8 mg/mg Normal [facility] Comment on above: Performed By: #### I MADDI #### [facility] [address] [address] [address] Sona Cruz TSHon 06-17-2022 TSH 2.478 uIU/mL Normal 0.358-3.740 [facility] Comment on above: Performed By: #### I MADDI #### [facility] [address] [address] [address] Sona Cruz UA RANDOM W/MICROSCOPICon BACTERIA NONE SEEN Normal NONE SEEN [facility] Comment on above: Performed By: #### T 7, TSH, LIPID, CMP #### [facility] [address] [address] [address] Sona Cruz Bilirubin Ql (U) Negative Normal NEGATIVE [facility] Comment on above: Performed By: #### T 7, TSH, LIPID, CMP #### [facility] [address] [address] [address] Sona Cruz CAST NONE SEEN Normal NONE SEEN [facility] Comment on above: Performed By: #### T 7, TSH, LIPID, CMP #### [facility] [address] [place] [address] Dr. Sona Cruz Clarity (U) CLEAR Normal CLEAR [facility] Comment on above: Performed By: #### T 7, TSH, LIPID, CMP #### [facility] [address] [address] [address] Sona Cruz Color (U) LT. YELLOW Normal YELLOW [facility] Comment on above: Performed By: #### T 7, TSH, LIPID, CMP #### [facility] [address] [place] [address] Dr. Sona Cruz Crystals LM Nom (Urine sed) NONE SEEN Normal NONE SEEN [facility] Comment on above: Performed By: #### T 7, TSH, LIPID, CMP #### [facility] [address] [place] [address] Dr. Sona Cruz Epithelial cells LM Ql (Urine sed) FEW Abnormal NONE SEEN /RARE [facility] Comment on above: Performed By: #### T 7, TSH, LIPID, CMP #### [facility] [address] [place] [address] Dr. Sona Cruz Glucose Ql (U) Negative Normal NEGATIVE [facility] Comment on above: Performed By: #### T 7, TSH, LIPID, CMP #### [facility] [address] [place] [address] Dr. Sona Cruz Hemoglobin Ql (U) Negative Normal NEGATIVE [facility] Comment on above: Performed By: #### T 7, TSH, LIPID, CMP #### [facility] [address] [place] [address] Dr. Sona Cruz Ketones Ql (U) Negative Normal NEGATIVE [facility] Comment on above: Performed By: #### T 7, TSH, LIPID, CMP #### [facility] [address] [place] [address] Dr. Sona Cruz LEUKOCYTES Negative Normal NEGATIVE [facility] Comment on above: Performed By: #### T 7, TSH, LIPID, CMP #### [facility] [address] [place] [address] Dr. Sona Cruz MUCOUS NONE SEEN Normal NONE SEEN [facility] Comment on above: Performed By: #### T 7, TSH, LIPID, CMP #### [facility] [address] [address] [address] Sona Cruz Nitrite Ql (U) Negative Normal NEGATIVE [facility] Comment on above: Performed By: #### T 7, TSH, LIPID, CMP #### [facility] [address] [address] [address] Sona Cruz pH (U) 6.0 [pH] Normal 5-9 [facility] Comment on above: Performed By: #### T 7, TSH, LIPID, CMP #### [facility] [address] [address] [address] Sona Cruz RBC 0-2 Normal 0-2 [facility] Comment on above: Performed By: #### T 7, TSH, LIPID, CMP #### [facility] [address] [address] [address] Sona Cruz SPEC GRAVITY 1.020 Normal 1.005-<=1.025 [facility] Comment on above: Performed By: #### T 7, TSH, LIPID, CMP #### [facility] [address] [address] [address] Sona Cruz UA PROTEIN Negative Normal NEGATIVE/ TRACE [facility] Comment on above: Performed By: #### T 7, TSH, LIPID, CMP #### [facility] [address] [address] [address] Sona Cruz Urobilinogen Qn (U) 0.2 {Dayanna'U}/dL Normal 0.2 - 1. 0 [facility] Comment on above: Performed By: #### T 7, TSH, LIPID, CMP #### [facility] [address] [address] [address] Sona Cruz WBC 0-2 Abnormal NONE SEEN [facility] Comment on above: Performed By: #### T 7, TSH, LIPID, CMP #### [facility] [address] [address] [address] Sona Cruz ANTISTREPTOLYSIN O AB (ASO)o n 05-18-2022 Antistreptolysin O Ab 866.8 IU/mL Critically high 0.0-200. 0 [facility] Comment on above: Result Comment: Resu lts confirmed on dilution. Performed By: #### T 7, TSH, LIPID, CMP #### [facility] [address] [place] [address] Dr. Sona Cruz CBC AUTO DIFFon 05-17-2022 BASO # 0.1 103/ul Normal 0.0-0.1 [facility] Comment on above: Performed By: #### T 7, TSH, LIPID, CMP #### [facility] [address] [place] [address] Dr. Sona Cruz Basophils/100 WBC (Bld) 0.6 % Normal 0.2-2.0 [facility] Comment on above: Performed By: #### T 7, TSH, LIPID, CMP #### [facility] [address] [place] [address] Dr. Sona Cruz EO # 0.2 103/ul Normal 0.0-0.7 [facility] Comment on above: Performed By: #### T 7, TSH, LIPID, CMP #### [facility] [address] [place] [address] Dr. Sona Cruz Eosinophils/100 WBC (Bld) 1.8 % Normal 0.9-7.0 [facility] Comment on above: Performed By: #### T 7, TSH, LIPID, CMP #### [facility] [address] [place] [address] Dr. Sona Cruz Erythrocyte distribution width (RBC) [Ratio] 14.2 % Normal 11.0-15.0 [facility] Comment on above: Performed By: #### T 7, TSH, LIPID, CMP #### [facility] [address] [place] [address] Dr. Sona Cruz Hematocrit (Bld) [Volume fraction] 44.7 % Normal 36.0-48.0 [facility] Comment on above: Performed By: #### T 7, TSH, LIPID, CMP #### [facility] [address] [place] [address] Dr. Sona Cruz Hemoglobin (Bld) [Mass/Vol] 14.4 g/dL Normal 12.0-16.0 [facility] Comment on above: Performed By: #### T 7, TSH, LIPID, CMP #### [facility] [address] [address] [address] Sona Cruz IG # 0.09 10e3/ul Critically high 0.00-0.03 [facility] Comment on above: Performed By: #### T 7, TSH, LIPID, CMP #### [facility] [address] [place] [address] Dr. Sona Cruz IG % 0.7 % Critically high 0.0-0.5 [facility] Comment on above: Performed By: #### T 7, TSH, LIPID, CMP #### [facility] [address] [place] [address] Dr. Sona Cruz LYMPH # 2.2 103/ul Normal 1.2-3.8 [facility] Comment on above: Performed By: #### T 7, TSH, LIPID, CMP #### [facility] [address] [place] [address] Dr. Sona Cruz Lymphocytes/100 WBC (Bld) 17.2 % Critically low 20.5-60.0 [facility] Comment on above: Performed By: #### T 7, TSH, LIPID, CMP #### [facility] Laboratory [address] [place] [address] Dr. Sona Cruz MANUAL DIFF REQ NO Normal [facility] Comment on above: Performed By: #### T 7, TSH, LIPID, CMP #### [facility] [address] [place] [address] Dr. Sona Cruz MCH (RBC) [Entitic mass] 28.7 pg Normal 26.7-34.0 [facility] Comment on above: Performed By: #### T 7, TSH, LIPID, CMP #### [facility] [address] [place] [address] Dr. Sona Cruz MCHC (RBC) [Mass/Vol] 32.2 g/dL Normal 29.9-35.2 [facility] Comment on above: Performed By: #### T 7, TSH, LIPID, CMP #### [facility] [address] [place] [address] Dr. Sona Cruz MCV (RBC) [Entitic vol] 89.0 fL Normal 81.0-99.0 [facility] Comment on above: Performed By: #### T 7, TSH, LIPID, CMP #### [facility] [address] [place] [address] Dr. Sona Cruz MONO # 0.9 103/ul Critically high 0.3-0.8 [facility] Comment on above: Performed By: #### T 7, TSH, LIPID, CMP #### [facility] [address] [place] [address] Dr. Sona Cruz Monocytes/100 WBC (Bld) 6.5 % Normal 1.7-12.0 [facility] Comment on above: Performed By: #### T 7, TSH, LIPID, CMP #### [facility] [address] [place] [address] Dr. Sona Cruz NEUT # 9.5 103/ul Critically high 1.4-6.5 [facility] Comment on above: Performed By: #### T 7, TSH, LIPID, CMP #### [facility] [address] [place] [address] Dr. Sona Cruz Neutrophils/100 WBC (Bld) 73.2 % Normal 43.0-75.0 [facility] Comment on above: Performed By: #### T 7, TSH, LIPID, CMP #### [facility] [address] [place] [address] Dr. Sona Crzu Platelet mean volume (Bld) [Entitic vol] 10.5 fL Normal 9.5-13.5 [facility] Comment on above: Performed By: #### T 7, TSH, LIPID, CMP #### [facility] [address] [place] [address] Dr. Sona Cruz PLT 319 103/ul Normal 150-450 [facility] Comment on above: Performed By: #### T 7, TSH, LIPID, CMP #### [facility] [address] [place], [place] [id number] Dr. Sona Cruz RBC 5.02 106/ul Normal 4.20-5.40 [facility] Comment on above: Performed By: #### T 7, TSH, LIPID, CMP #### [facility] [address] [place] [address] Dr. Sona Cruz WBC 13.0 103/ul Critically high 4.0-11.0 [facility] Comment on above: Performed By: #### T 7, TSH, LIPID, CMP #### [facility] [address] [place] [address] Dr. Sona Curz CRPon 05-17-2022 CRP [Mass/Vol] mg/L Normal <=1.0 [facility] Comment on above: Performed By: #### T 7, TSH, LIPID, CMP #### [facility] [address] [place] [address] Dr. Sona Cruz CULTURE BLOODon 05-17-2022 Microscopic examination of blood, culture Culture Observations: NO GROWTH AT 5 DAYS. Normal [facility] Comment on above: Performed By: #### B LDCX2 #### [facility] [address] [place] [address] Dr. Sona Cruz Microscopic examination of blood, culture Culture Observations: NO GROWTH AT 5 DAYS. Normal [facility] Comment on above: Performed By: #### B LDCX1 #### [facility] [address] [place] [address] Dr. Sona Cruz SED RATE WESTERGRENon 2021 SED RATE 54 mm/hr Critically high <=30 [facility] Comment on above: Performed By: #### T 7, TSH, LIPID, CMP #### [facility] [address] [place] [address] Dr. Sona Cruz MRI LSPINE WO CONon [...] YUNIOR ROBBINS Date: 2022-05-06 15:01 Normal [facility] MG MAMM SCREEN 3D CESAR CADon 04-15-2022 MG MAMM SCREEN 3D CESAR CAD Patient: SYLVIE ALTAMIRANO Exam Date: 04/15/2022 : 1970 Gender:F Ordering : DR ELEUTERIO CARRANZA . Admission #: [id number] Family : Order #: [id number] CLICK HERE TO VIEW EXAM RADIOLOGY REPORT PROCEDURE: MAMMOGRAM SCREENING 3D BILATERAL CAD COMPARISON: None. INDICATIONS: Screening mammography Calculator Name NCI Breast Cancer Risk Assessment Tool 5 Year Breast Cancer Risk 0.80% Lifetime Breast Cancer Risk 7.10% Personal Breast Cancer No Personal Ovarian Cancer No Treatments None Family Cancers Sister with colon cancer at age 34. LOCATION: [facility] BREAST COMPOSITION: Almost entirely fatty. FINDINGS: DIAGNOSTIC [...] Hickey MD on 04/15/2022 at 14:17 Normal [facility] ECHOCARDIO M/2D COMPLETEon 1 ECHOCARDIO M/2D COMPLETE Patient: SYLVIE ALTAMIRANO Exam Date: 04/08/2022 : 1970 Gender:F Ordering : DR ELEUTERIO CARRANZA . Admission #: [id number] Family : Order #: [id number] CLICK HERE TO VIEW EXAM ECHOCARDIOGRAM REPORT [...] Lazaro M.D. on 04/13/2022 at 11:32 Normal [facility] SLE PROFILE Aon 04-01-2022 Anti-DNA (DS) Ab Qn 1 IU/mL Normal 0-9 [facility] Comment on above: Result Comment: Nega tive <5 Equivocal 5 - 9 Positive >9 Performed By: #### T 7, TSH, LIPID, CMP #### [facility] [address] [address] [address] Sona Cruz Antichromatin Antibodies <0.2 Normal 0.0-0.9 [facility] Comment on above: Performed By: #### T 7, TSH, LIPID, CMP #### [facility] [address] [place] [address] Dr. Sona Cruz RA Latex Turbid. <10.0 Normal <14.0 [facility] Comment on above: Performed By: #### T 7, TSH, LIPID, CMP #### [facility] [address] [place] [address] Dr. Sona Cruz COMPLETIONS MANAGER Antibodies 0.2 AI Normal 0.0-0.9 [facility] Comment on above: Performed By: #### T 7, TSH, LIPID, CMP #### [facility] [address] [place] [address] Dr. Sona Cruz Sjogrольга's Anti-SS-A <0.2 Normal 0.0-0.9 [facility] Comment on above: Performed By: #### T 7, TSH, LIPID, CMP #### [facility] [address] [place] [address] Dr. Sona Cruz Sjogrольга's Anti-SS-B <0.2 Normal 0.0-0.9 [facility] Comment on above: Performed By: #### T 7, TSH, LIPID, CMP #### [facility] [address] [place] [address] Dr. Sona Cruz Judd Antibodies <0.2 Normal 0.0-0.9 [facility] Comment on above: Performed By: #### T 7, TSH, LIPID, CMP #### [facility] [address] [place] [address] Dr. Sona Cruz REGGIE by IFAon 03-31-2022 Antinuclear Antibodies, IFA Negative Normal [facility] Comment on above: Result Comment: Nega tive <1:80 Borderline 1:80 Positive >1:80 ICAP nomenclature: AC-0 For more information about Hep-2 cell patterns use ANApatterns.org, the official website for the International Consensus on Antinuclear Antibody (REGGIE) Patterns (ICAP). Performed By: #### T 7, TSH, LIPID, CMP #### [facility] [address] [place] [address] Dr. Sona Cruz RHEUMATOID FACTORon 03-31-20 RA Latex Turbid. <10.0 Normal <14.0 [facility] Comment on above: Performed By: #### T 7, TSH, LIPID, CMP #### [facility] [address] [place] [address] Dr. Sona Cruz ANTISTREPTOLYSIN O AB (ASO)o n 03-30-2022 Antistreptolysin O Ab 1118.1 IU/mL Critically high 0.0-200 .0 [facility] Comment on above: Result Comment: Resu lts confirmed on dilution. Performed By: #### T 7, TSH, LIPID, CMP #### [facility] [address] [place] [address] Dr. Sona Cruz DANIELLE-GARCIA VIRUS (EBV) AB PROFILEon 03-30-2022 EBV Ab VCA, IgG 57.9 U/mL Critically high 0.0-17.9 [facility] Comment on above: Result Comment: Nega tive <18.0 Equivocal 18.0 - 21.9 Positive >21.9 Performed By: #### T 7, TSH, LIPID, CMP #### [facility] [address] [place] [address] Dr. Sona Cruz EBV Ab VCA, IgM <36.0 Normal 0.0-35.9 [facility] Comment on above: Result Comment: Nega tive <36.0 Equivocal 36.0 - 43.9 Positive >43.9 Performed By: #### T 7, TSH, LIPID, CMP #### [facility] [address] [place] [address] Dr. Sona Cruz EBV Nuclear Antigen Ab, IgG 135.0 U/mL Critically high 0.0-17.9 [facility] Comment on above: Result Comment: Nega tive <18.0 Equivocal 18.0 - 21.9 Positive >21.9 Performed By: #### T 7, TSH, LIPID, CMP #### [facility] [address] [place], [place] [address] Dr. Sona Cruz Interpretation: Comment Normal [facility] Comment on above: Result Comment: EBV Interpretation Chart Omseley: Antibody Present + Antibody Absent - Interpretation [...] #### T 7, TSH, LIPID, CMP #### [facility] [address] [place], [place] [address] Dr. Sona Cruz XR KNEE CESAR 4V [...] by: YUNIOR ROBBINS Date: 2022-03-30 07:05 Normal [facility] XR LSPINE MIN 4 VIEWSon 03-12 [...] YUNIOR ZIMARILOUDONALD Date: 2022-03-30 07:13 Normal [facility] CRPon 03-29-2022 CRP 1.4 mg/dL Critically high <=1.0 [facility] Comment on above: Performed By: #### T 7, TSH, LIPID, CMP #### [facility] [address] [address] [address] Sona Cruz FREE THYROXINE INDEX T7on FTI 2.62 Normal 1.30-4.50 [facility] Comment on above: Performed By: #### T 7, TSH, LIPID, CMP #### [facility] [address] [place] [address] Dr. Sona Cruz T3U 34.0 % Normal 30.0-39.0 [facility] Comment on above: Performed By: #### T 7, TSH, LIPID, CMP #### [facility] [address] [address] [address] Sona Cruz T4 [Mass/Vol] 7.70 ug/dL Normal 4.80-13.90 [facility] Comment on above: Performed By: #### T 7, TSH, LIPID, CMP #### [facility] [address] [address] [address] [facility] 48 mm/hr Critically high <=30 [facility] Comment on above: Performed By: #### T 7, TSH, LIPID, CMP #### [facility] [address] [place] [address] Dr. Sona Cruz TSHon 03-29-2022 TSH 2.577 uIU/mL Normal 0.358-3.740 [facility] Comment on above: Performed By: #### T 7, TSH, LIPID, CMP #### [facility] [address] [place] [address] Dr. Sona Cruz URIC ACID SERUMon 03-29-2022 Urate [Mass/Vol] 4.2 mg/dL Normal 2.6-6.0 [facility] Comment on above: Performed By: #### T 7, TSH, LIPID, CMP #### [facility] [address] [address] [address] Sona Cruz CHEMISTRYOrdered By: SYSTEM SYSTEM [...] jacome 03-05-2024 09:25-0400 Blood Pressure Location Nica SplashupL [facility] [place] 03-05-2024 09:25-0400 Diastolic blood pressure 81 mm[Hg] Nica FRANCOL [facility] [place] 03-05-2024 09:25-0400 Heart rate 114 /min Nica SplashupL [facility] [place] 03-05-2024 09:25-0400 Respiratory rate 16 /min Nica FRANCOL [facility] [place] 03-05-2024 09:25-0400 Systolic blood pressure 134 mm[Hg] Nica FRANCOL [facility] [place] 05-17-2022 13:43-0500 Blood Pressure Location Nica NILL [facility] 05-17-2022 13:43-0500 Diastolic blood pressure 86 mm[Hg] Nica NILL [facility] 05-17-2022 13:43-0500 Heart rate 72 /min Nica FRANCOL [facility] 05-17-2022 13:43-0500 Respiratory rate 16 /min Nica ISRAEL [facility] [place] 05-17-2022 [id number] Systolic blood pressure 122 mm[Hg] Nica ISRAEL [facility] [place] Encounters Encounter Date Encounter Type Care Provider Facility Start: 03-05-2024 End: 03-05-2024 ambulatory Nica Belle QI Facility: [facility] Start: 03-05-2024 End: 03-05-2024 Patient encounter procedure Nica ISRAEL [facility] [place] Start: 02-29-2024 ambulatory Nica ISRAEL Facility:[facility] [place] Start: 10-26-2022 End: 10-26-[address] ELEUTERIO CARRANZA . Facility:[facility] Start: 09-30-2022 End: 10-01-[address] ELEUTERIO CARRANZA . Facility:[facility] Start: 08-12-2022 End: 08-13-[address] ELEUTERIO CARRANZA . Facility:[facility] Start: 06-22-2022 End: 06-22-[address] NICA ISRAEL . Facility:[facility] Start: 06-20-2022 Encounter for preprocedural laboratory examination DR ELEUTERIO CARRANZA . [facility] Start: 06-17-2022 End: 06-18-2022 Encounter for preprocedural laboratory examination DR ELEUTERIO CARRANZA . Facility:[facility] Start: 06-17-2022 End: 06-18-[address] ELEUTERIO CARRANZA . Facility:[facility] Start: 05-17-2022 End: 05-18-[address] ELEUTERIO CARRANZA . Facility:[facility] Start: 05-17-2022 End: 05-17-2022 Patient encounter procedure Nica ISRAEL [facility] Start: 05-06-2022 End: 05-07-[address] ELEUTERIO [...] End: 02-17-2022 Patient encounter procedure Eleuterio Carranza [facility] Start: 01-17-2022 End: 04-17-2022 Recurring AYAAN BAH [facility] Procedures Date Procedure Procedure Detail Performing Clinician Start: 06-22-2022 Colonoscopy Nica NI LL Start: 08-10-2011 Colonoscopy Nica NI LL Appendectomy Nica NILL Cholecystectomy Nica NILL Colonoscopy Nica NILL Dilation and curettage Yeison FRANCOL Exploratory laparotomy Yeison FRANCOL Total hysterectomy v ia vaginal approach Nica FRANCOL Immunizations Immunization Date Immunization Notes Care Provider Fa cility 05-16-2021 SARS-CoV-2 (COVID-19 ) mRNA-1273 vaccine Nica NILL [facility] [place] 04-29-2021 SARS-CoV-2 (COVID-19 ) Ad26 vaccine, recombinant Nica SALVADORL [facility] [place] NEGATED: Highlighted row has not occurred!05-17-2022 influenza virus vaccine, unspecified formulation Nica ISRAEL [facility] [place] Payers Date Payer Category Payer Unknown [id number] 2.16.84 [id number] 1970 Unknown [id number] 2.16.84 [id number] 1970 Unknown [id number] 2.16.84 0.1.409324.3.579.2.593 1971 Unknown [id number] 2.16.84 0.1.184161.3.579.2.593 1971 Unknown [id number] 2.16.84 0.1.920985.3.579.2.593 1971 Unknown [id number] 2.16.84 0.1.021805.3.579.2.593 1971 Unknown [id number] 2.16.84 0.1.572767.3.579.2.593 1971 Unknown [id number] 2.16.84 0.1.344830.3.579.2.593 1971 Unknown [id number] 2.16.84 0.1.123516.3.579.2.593 1971 Unknown [id number] 2.16.84 0.1.554591.3.579.2.593 1971 Unknown [id number] 2.16.84 0.1.081276.3.579.2.593 1971 Unknown [id number] 2.16.84 0.1.619355.3.579.2.593 1971 Unknown [id number] 2.16.84 0.1.625280.3.579.2.593 1971 Unknown [id number] 2.16.84 0.1.959751.3.579.2.593 1971 Unknown [id number] 2.16.84 0.1.155104.3.579.2.593 1970 Unknown [id number] 2.16.8 40.1.384969.3.579.2.727 1958 Self-pay 1958 Unknown [id number] 1958 Unknown [id number] Social History Date Type Detail Facility Tobacco [facility] Comment on above: denies Sex Assigned At Female [facility] Tobacco smoking status No Smokin g Status Entered [facility] Start: 05-17-2022 Tobacco smoking status Heavy t obacco smoker (finding) [facility] [place] Tobacco smoking status Never Gener [facility] [place] Start: 03-05-2024 Tobacco smoking status Light t obacco smoker (finding) [facility] [place] Functional Status Date Assessment Result Facility 03-05-2024 Functional Status N/A [facility] [place] 05-17-2022 Functional Status N/A [facility] Clinical Note 03-05-2024 Note Date & [...] Recorded SARS-CoV-2 (COVID-19) Ad26 vaccine 04/29/[address] [facility] Comment on above: Result Comment: Elec [...] pathology results. CC: Eleuterio Carranza M.D. [facility] Evaluation + Plan note 02-17-2022 Note Date & Type Note Facility 02-17-2022 Evaluation + Plan note Diagnostic Tests PendingInsulin Level Total 02/17/22 [facility] Evaluation + Plan note Note Date & Type Note Facility Evaluation + Plan note Future Appointments Appointment Date:04/29/2022 01:00:00 PM Scheduled Provider:Nica ISRAEL MD Location:[facility] Appointment Type:[address] Hospital course Narrative Note Date & Type Note Facility Hospital course Narrative No data available for this section [facility] Hospital Discharge instructions Note Date & Type Note Facility Hospital Discharge instructions No data available for this section [facility] Progress note Note Date & Type Note Facility Progress note No data available for this section [facility] Summary Purpose Family History No Family History Records Found No data available for this section No Family History Records Found Advance Directives No Advanced Directives Records FoundNo Advanced Directives Records Found Additional Source Comments Care Team (unrecognized sect ion and content) Personnel Name: Eleuterio Carranza MD Address: [address] [place] [address] Personnel Name: Eleuterio Carranza MD Address: Address: [address] [place] [address] Personnel Name: Eleuterio Carranza MD Address: Address: [address] [place] [address] Personnel Name: Eleuterio Carranza MD Address: Address: [address] [place] [address] INFORMATION SOURCE (unrecogn ized section and content) DATE CREATED AUTHOR 10/27/2022 [facility] DATE CREATED AUTHOR AUTHOR'S ORGANIZ ATION 03/07/2024 [facility] FOR RECORDS PERTAINING TO PATIENTS WHO [...] BE BASED ON THE PRIMARY CLINICAL RECORDS. [facility] [employer] [facility]. provides no warranty or guarantee of the accuracy or completeness of information in this document.
== END 2024-08-27 07:48 | disposition home or self-care (01) ==
LOC: RAD 07:50
PROVIDERS: PCP Family Medicine; Visit Provider Internal Medicine Hematology & Oncology
DX: D72.829 Elevated white blood cell count, unspecified (principal); D64.9 Anemia, unspecified; R70.0 Elevated erythrocyte sedimentation rate; Z13.820 Encounter for screening for osteoporosis; R16.2 Hepatomegaly with splenomegaly, not elsewhere classified; K44.9 Diaphragmatic hernia without obstruction or gangrene
CPT/HCPCS: 74177; 77080; Q9967

== ENCOUNTER 2024-10-22 14:05 | Outpatient (OUT) | payer OTHER, SELFPAY ==
[2024-10-22 14:25] LABS: Basophils Absolute Auto 0.1 10^3/uL (0.0-0.1); Basophils Percent Auto 0.5 % (0.2-2.0); Eosinophils Absolute Auto 0.2 10^3/uL (0.0-0.7); Hematocrit 39.3 % (36.0-48.0); Hemoglobin 12.7 g/dL (12.0-16.0); Immature Granulocytes Abs Auto 0.28 10^3/uL (0.00-0.03); Immature Granulocytes Pct Auto 1.5 % (0.0-0.5); Lymphocytes Absolute Auto 2.7 10^3/uL (1.2-3.8); Lymphocytes Percent Auto 14.8 % (20.5-60.0); Mean Corpuscular HGB Conc 32.3 g/dL (29.9-35.2); Mean Corpuscular Hemoglobin 28.7 pg (26.7-34.0); Mean Corpuscular Volume 88.7 fL (81.0-99.0); Mean Platelet Volume 10.2 fL (9.5-13.5); Monocytes Absolute Auto 1.1 10^3/uL (0.3-0.8); Monocytes Percent Auto 5.8 % (1.7-12.0); Neutrophils Absolute Auto 13.9 10^3/uL (1.4-6.5); Neutrophils Percent Auto 76.4 % (43.0-75.0); Platelet Count 324 10^3/uL (150-450); Red Blood Count 4.43 10^6/uL (4.20-5.40); Red Cell Distribution Width 15.5 % (11.0-15.0); White Blood Count 18.2 10^3/uL (4.0-11.0)
[2024-10-22 14:39] LABS: Erythrocyte Sedimentation Rate 68 mm/hr (<=30)
--- OUTSIDE RECORDS SUMMARY | 2024-10-22 14:44 | XMS_ITS | CCD ---
Author Organization [facility] [employer] Care Team Providers Care Graduate Advisor Name Role Phone Eleuterio Carranza Primary Care Physician [phone] HOY ., DR MCCLELLAN Primary Care Unavailable [...] Unavailable HOY ., DR MCCLELLAN Attending Unavailable HONOLULU, DR MOISE Diaz Consulting Unavailable NILL, Nica Odonnell Attending Unavailable Eleuterio Carranza Referring Unavailable Allergies Allergy Classification Reported Allergen(s) Allergy Type Date of Onset Reaction(s) Facility (3 sources) venlafaxine; Translations: [venlafaxine] Drug Allergy Dizziness (finding) General Surgery [place] (1 source) venlafaxine Drug Allergy [facility] [place] [facility] Repository Medications Current Medications Medication Drug Class(es) Dates Sig (Normalized) Sig (Original) acetaminophen 325 mg / HYDROcodone bitartrate 5 mg oral tablet (2 sources) Opioid Agonist Start: 03-06-2017 [place] 325 mg-5 mg oral tablet See Instructions, [...] BID, # 20 tab(s), Refills(s) 0, Pharmacy: [facility] 1985 Start Date: 07/27/18 Status: Ordered Prilosec [...] 04-01-20 Chronic Other aftercare (1 source) Other long term care pharmacist (current) drug therapy; Translations: [OTH ASSESSMENT NURSE PRACTITIONER CURRENT DRUG THERAPY] Onset: 10-28-19 Episodic Other [...] for choosing us for your care. Normal [facility] XR CHEST 1 Von 10-26-2022 XR CHEST [...] PILO ELIAS Date: 2022-10-26 19:03 Normal [facility] CULTURE BLOODon 09-30-2022 Microscopic examination of blood, culture Culture Observations: NO GROWTH AT 5 DAYS. Normal [facility] Comment on above: Performed By: #### T 7, TSH, LIPID, CMP #### [facility] [address] [address] [address] Sona Cruz Microscopic examination of blood, culture Culture Observations: NO GROWTH AT 5 DAYS. Normal [facility] Comment on above: Performed By: #### T 7, TSH, LIPID, CMP #### [facility] [address] [place], [place] [address] Dr. Sona Cruz CULTURE URINEon 09-30-2022 CULTURE URINE Culture Observations: NO GROWTH. Normal [facility] Comment on above: Performed By: #### T 7, TSH, LIPID, CMP #### [facility] [address] [place], [place] [address] Dr. Sona Cruz UA RANDOM W/MICROSCOPICon BACTERIA NONE SEEN Normal NONE SEEN [facility] [place] [facility] Comment on above: Performed By: #### T 7, TSH, LIPID, CMP #### [facility] [address] [address] [address] Sona Cruz Bilirubin Ql (U) Negative Normal NEGATIVE [facility] Comment on above: Performed By: #### T 7, TSH, LIPID, CMP #### [facility] [address] [place] [address] Dr. Sona Cruz CAST NONE SEEN Normal NONE SEEN [facility] Comment on above: Performed By: #### T 7, TSH, LIPID, CMP #### [facility] [address] [place] [address] Dr. Sona Cruz Clarity (U) CLEAR Normal CLEAR [facility] Comment on above: Performed By: #### T 7, TSH, LIPID, CMP #### [facility] [address] [place] [address] Dr. Sona Cruz Color (U) LT. YELLOW Normal YELLOW [facility] Comment on above: Performed By: #### T 7, TSH, LIPID, CMP #### [facility] [address] [place] [address] Dr. Sona Cruz Crystals LM Nom (Urine sed) SEEN Abnormal NONE SEEN [facility] Comment on above: Performed By: #### T 7, TSH, LIPID, CMP #### [facility] [address] [place] [address] Dr. Sona Cruz Epithelial cells LM Ql (Urine sed) FEW Abnormal NONE SEEN /RARE [facility] [place] [facility] Comment on above: Performed By: #### T 7, TSH, LIPID, CMP #### [facility] [address] [place] [address] Dr. Sona Cruz Glucose Ql (U) Negative Normal NEGATIVE [facility] Comment on above: Performed By: #### T 7, TSH, LIPID, CMP #### [facility] [address] [place] [address] Dr. Sona Cruz Hemoglobin Ql (U) Negative Normal NEGATIVE [facility] Comment on above: Performed By: #### T 7, TSH, LIPID, CMP #### [facility] [address] [place] [address] Dr. Sona Cruz Ketones Ql (U) Negative Normal NEGATIVE [facility] Comment on above: Performed By: #### T 7, TSH, LIPID, CMP #### [facility] [address] [address] [address] Sona Cruz LEUKOCYTES Negative Normal NEGATIVE [facility] Comment on above: Performed By: #### T 7, TSH, LIPID, CMP #### [facility] [address] [address] [address] Sona Cruz MUCOUS NONE SEEN Normal NONE SEEN [facility] Comment on above: Performed By: #### T 7, TSH, LIPID, CMP #### [facility] [address] [address] [address] Sona Cruz Nitrite Ql (U) Negative Normal NEGATIVE [facility] Comment on above: Performed By: #### T 7, TSH, LIPID, CMP #### [facility] [address] [place] [address] Dr. Sona Cruz pH (U) 5.5 [pH] Normal 5-9 [facility] Comment on above: Performed By: #### T 7, TSH, LIPID, CMP #### [facility] [address] [place] [address] Dr. Sona Cruz RBC 0-2 Normal 0-2 [facility] Comment on above: Performed By: #### T 7, TSH, LIPID, CMP #### [facility] [address] [address] [address] Sona Cruz SPEC GRAVITY 1.025 Normal 1.005-<=1.025 [facility] Comment on above: Performed By: #### T 7, TSH, LIPID, CMP #### [facility] [address] [address] [address] Sona Cruz UA PROTEIN Negative Normal NEGATIVE/ TRACE [facility] [place] [facility] Comment on above: Performed By: #### T 7, TSH, LIPID, CMP #### [facility] [address] [place] [address] Dr. Sona Cruz Urobilinogen Qn (U) 0.2 {Dayanna'U}/dL Normal 0.2 - 1. 0 [facility] [place] [facility] Comment on above: Performed By: #### T 7, TSH, LIPID, CMP #### [facility] [address] [place] [address] Dr. Sona Cruz WBC 0-2 Abnormal NONE SEEN [facility] [place] [facility] Comment on above: Performed By: #### T 7, TSH, LIPID, CMP #### [facility] [address] [address] [address] Sona Cruz VITAMIN B12on 09-30-2022 Cobalamin (Vitamin B12) [Mass/Vol] 383.0 pg/mL Normal 193.0-986.0 [facility] Comment on above: Performed By: #### V ITB12 #### [facility] [address] [place] [address] Dr. Sona Cruz DANIELLE-GARCIA VIRUS (EBV) AB PROFILEon 08-15-2022 EBV Ab VCA, IgG 71.8 U/mL Critically high 0.0-17.9 [facility] Comment on above: Result Comment: Nega tive <18.0 Equivocal 18.0 - 21.9 Positive >21.9 Performed By: #### T 7, TSH, LIPID, CMP #### [facility] [address] [place] [address] Dr. Sona Cruz EBV Ab VCA, IgM <36.0 Normal 0.0-35.9 [facility] Comment on above: Result Comment: Nega tive <36.0 Equivocal 36.0 - 43.9 Positive >43.9 Performed By: #### T 7, TSH, LIPID, CMP #### [facility] [address] [place] [address] Dr. Sona Cruz EBV Nuclear Antigen Ab, IgG 146.0 U/mL Critically high 0.0-17.9 [facility] [place] [facility] Comment on above: Result Comment: Nega tive <18.0 Equivocal 18.0 - 21.9 Positive >21.9 Performed By: #### T 7, TSH, LIPID, CMP #### [facility] [address] [place] [address] Dr. Sona Cruz Interpretation: Comment Normal [facility] Comment on above: Result Comment: EBV [...] #### T 7, TSH, LIPID, CMP #### [facility] [address] [place] [address] Dr. Sona Cruz INSULINon 08-13-2022 Insulin 18.5 uIU/mL Normal 2.6-24.9 [facility] [place] [facility] Comment on above: Performed By: #### T 7, TSH, LIPID, CMP #### [facility] [address] [place] [address] Dr. Sona Cruz CBC AUTO DIFFon 08-12-2022 BASO # 0.1 103/ul Normal 0.0-0.1 [facility] Comment on above: Performed By: #### T 7, TSH, LIPID, CMP #### [facility] [address] [address] [address] Sona Cruz Basophils/100 WBC (Bld) 0.5 % Normal 0.2-2.0 [facility] Comment on above: Performed By: #### T 7, TSH, LIPID, CMP #### [facility] [address] [address] [address] Sona Cruz EO # 0.1 103/ul Normal 0.0-0.7 [facility] Comment on above: Performed By: #### T 7, TSH, LIPID, CMP #### [facility] [address] [place] [address] Dr. Sona Cruz Eosinophils/100 WBC (Bld) 0.9 % Normal 0.9-7.0 [facility] Comment on above: Performed By: #### T 7, TSH, LIPID, CMP #### [facility] [address] [place] [address] Dr. Sona Cruz Erythrocyte distribution width (RBC) [Ratio] 14.4 % Normal 11.0-15.0 [facility] Comment on above: Performed By: #### T 7, TSH, LIPID, CMP #### [facility] [address] [place] [address] Dr. Sona Cruz Hematocrit (Bld) [Volume fraction] 41.8 % Normal 36.0-48.0 [facility] Comment on above: Performed By: #### T 7, TSH, LIPID, CMP #### [facility] [address] [place] [address] Dr. Sona Cruz Hemoglobin (Bld) [Mass/Vol] 14.0 g/dL Normal 12.0-16.0 [facility] Comment on above: Performed By: #### T 7, TSH, LIPID, CMP #### [facility] [address] [place] [address] Dr. Sona Cruz IG # 0.12 10e3/ul Critically high 0.00-0.03 [facility] Comment on above: Performed By: #### T 7, TSH, LIPID, CMP #### [facility] [address] [place] [address] Dr. Sona Cruz IG % 1.0 % Critically high 0.0-0.5 [facility] Comment on above: Performed By: #### T 7, TSH, LIPID, CMP #### [facility] [address] [place] [address] Dr. Sona Cruz LYMPH # 1.8 103/ul Normal 1.2-3.8 [facility] Comment on above: Performed By: #### T 7, TSH, LIPID, CMP #### [facility] [address] [place] [address] Dr. Sona Cruz Lymphocytes/100 WBC (Bld) 14.4 % Critically low 20.5-60.0 [facility] Comment on above: Performed By: #### T 7, TSH, LIPID, CMP #### [facility] [address] [place] [address] Dr. Sona Cruz MANUAL DIFF REQ NO Normal [facility] Comment on above: Performed By: #### T 7, TSH, LIPID, CMP #### [facility] [address] [place] [address] Dr. Sona Cruz MCH (RBC) [Entitic mass] 30.0 pg Normal 26.7-34.0 [facility] Comment on above: Performed By: #### T 7, TSH, LIPID, CMP #### [facility] [address] [place] [address] Dr. Sona Cruz MCHC (RBC) [Mass/Vol] 33.5 g/dL Normal 29.9-35.2 [facility] Comment on above: Performed By: #### T 7, TSH, LIPID, CMP #### [facility] [address] [place] [address] Dr. Sona Cruz MCV (RBC) [Entitic vol] 89.5 fL Normal 81.0-99.0 [facility] Comment on above: Performed By: #### T 7, TSH, LIPID, CMP #### [facility] [address] [place] [address] Dr. Sona Cruz MONO # 0.8 103/ul Normal 0.3-0.8 [facility] Comment on above: Performed By: #### T 7, TSH, LIPID, CMP #### [facility] [address] [place] [address] Dr. Sona Cruz Monocytes/100 WBC (Bld) 6.6 % Normal 1.7-12.0 [facility] Comment on above: Performed By: #### T 7, TSH, LIPID, CMP #### [facility] [address] [place] [address] Dr. Sona Cruz NEUT # 9.5 103/ul Critically high 1.4-6.5 [facility] Comment on above: Performed By: #### T 7, TSH, LIPID, CMP #### [facility] [address] [place] [address] Dr. Sona Cruz Neutrophils/100 WBC (Bld) 76.6 % Critically high 43.0-75.0 [facility] Comment on above: Performed By: #### T 7, TSH, LIPID, CMP #### [facility] [address] [place] [address] Dr. Sona Cruz Platelet mean volume (Bld) [Entitic vol] 10.5 fL Normal 9.5-13.5 [facility] Comment on above: Performed By: #### T 7, TSH, LIPID, CMP #### [facility] [address] [place] [address] Dr. Sona Cruz PLT 261 103/ul Normal 150-450 [facility] Comment on above: Performed By: #### T 7, TSH, LIPID, CMP #### [facility] [address] [place] [address] Dr. Sona Cruz RBC 4.67 106/ul Normal 4.20-5.40 [facility] Comment on above: Performed By: #### T 7, TSH, LIPID, CMP #### [facility] [address] [place] [address] Dr. Sona Cruz WBC 12.4 103/ul Critically high 4.0-11.0 [facility] Comment on above: Performed By: #### T 7, TSH, LIPID, CMP #### [facility] [address] [place] [address] Dr. Sona Cruz CULTURE BLOODon 08-12-2022 Microscopic examination of blood, culture Culture Observations: NO GROWTH AT 5 DAYS. Isolate 1 BC_BA_NA Normal [facility] Comment on above: Performed By: #### T 7, TSH, LIPID, CMP #### [facility] [address] [place] [address] Dr. Sona Cruz Microscopic examination of blood, culture Culture Observations: NO GROWTH AT 5 DAYS. Isolate 1 BC_BA_NA Normal [facility] Comment on above: Performed By: #### T 7, TSH, LIPID, CMP #### [facility] [address] [place] [address] Dr. Sona Cruz CULTURE URINEon 08-12-2022 CULTURE URINE Culture Observations: NO GROWTH. Normal [facility] Comment on above: Performed By: #### U RCX #### [facility] [address] [place] [address] Dr. Sona Cruz FREE THYROXINE INDEX T7on FTI 3.65 Normal 1.30-4.50 [facility] Comment on above: Performed By: #### T 7, TSH, LIPID, CMP #### [facility] [address] [address] [address] Sona Cruz T3U 38.0 % Normal 30.0-39.0 [facility] Comment on above: Performed By: #### T 7, TSH, LIPID, CMP #### [facility] [address] [address] [address] Sona Cruz T4 [Mass/Vol] 9.60 ug/dL Normal 4.80-13.90 [facility] Comment on above: Performed By: #### T 7, TSH, LIPID, CMP #### [facility] [address] [place] [address] Dr. Sona Cruz GLYCOHEMOGLOBIN A1Con 2022 ADA RECOMMENDATION SEE BELOW Normal [facility] Comment on above: Result Comment: ADA RECOMMENDED LIMIT 4.0 - 6.0 ADA THERAPEUTIC TARGET < 7.0 ACTION SUGGESTED > 7.0 Performed By: #### T 7, TSH, LIPID, CMP #### [facility] [address] [address] [address] Sona Cruz Glucose [Mass/Vol] 111 mg/dL Normal [facility] Comment on above: Performed By: #### T 7, TSH, LIPID, CMP #### [facility] [address] [address] [address] Sona Cruz HbA1c (Bld) [Mass fraction] 5.5 % Normal 4.5-6.2 [facility] Comment on above: Performed By: #### T 7, TSH, LIPID, CMP #### [facility] [address] [address] [address] Sona Cruz IRONon 08-12-2022 Iron [Mass/Vol] 71.0 ug/dL Normal 50.0-170.0 [facility] Comment on above: Performed By: #### T 7, TSH, LIPID, CMP #### [facility] [address] [address] [address] Sona Cruz LIPID PROFILEon 08-12-2022 CHOL-HDL RATIO NORM SEE BELOW Normal [facility] Comment on above: Result Comment: 3.3 - 4.4 LOW RISK 4.4 - 7.1 AVERAGE RISK 7.1 - 11.0 MODERATE RISK >11.0 HIGH RISK Performed By: #### T 7, TSH, LIPID, CMP #### [facility] [address] [place] [address] Dr. Sona Cruz Cholesterol [Mass/Vol] 216 mg/dL Critically high <=200 [facility] Comment on above: Performed By: #### T 7, TSH, LIPID, CMP #### [facility] [address] [place] [address] Dr. Sona Cruz Cholesterol in HDL [Mass/Vol] 64 mg/dL Critically high 40-60 [facility] Comment on above: Performed By: #### T 7, TSH, LIPID, CMP #### [facility] [address] [place] [address] Dr. Sona Cruz Cholesterol in LDL [Mass/Vol] 132.4 mg/dL Normal [facility] Comment on above: Performed By: #### T 7, TSH, LIPID, CMP #### [facility] [address] [address] [address] Sona Cruz Cholesterol.total/Cho lesterol in HDL [Mass ratio] 3.4 {ratio} Normal [facility] Comment on above: Performed By: #### T 7, TSH, LIPID, CMP #### [facility] [address] [place] [address] Dr. Sona Cruz HDL NORMAL > or = 60 mg/dl - LOW CARDIOVASCULAR RISK <40 mg/dl - HIGH CARDIOVASCULAR RISK Normal [facility] Comment on above: Performed By: #### T 7, TSH, LIPID, CMP #### [facility] [address] [place] [address] Dr. Sona Cruz LDL CALC NORMAL SEE BELOW Normal [facility] Comment on above: Result Comment: <100 mg/dl OPTIMAL 100 - 129 mg/dl NEAR OR ABOVE OPTIMAL 130 - 159 mg/dl BORDERLINE HIGH 160 - 189 mg/dl HIGH >190 mg/dl VERY HIGH Performed By: #### T 7, TSH, LIPID, CMP #### [facility] [address] [address] [address] Sona Cruz Triglyceride [Mass/Vol] 98 mg/dL Normal <=150 [facility] Comment on above: Performed By: #### T 7, TSH, LIPID, CMP #### [facility] [address] [address] [address] Sona Cruz VLDL CALC 19.6 mg/dL Normal [facility] Comment on above: Performed By: #### T 7, TSH, LIPID, CMP #### [facility] [address] [address] [address] Sona Cruz MONOon 08-12-2022 Monocytes (Bld) [#/Vol] Negative Normal NEGATIVE [facility] Comment on above: Performed By: #### I MADDI #### [facility] [address] [place] [address] Dr. Sona Cruz PROF 14(COMP METB)on 023 Albumin [Mass/Vol] 3.9 g/dL Normal 3.4-5.0 [facility] Comment on above: Performed By: #### T 7, TSH, LIPID, CMP #### [facility] [address] [place] [address] Dr. Sona Cruz Albumin/Globulin [Mass ratio] 1.1 {ratio} Normal [facility] Comment on above: Performed By: #### T 7, TSH, LIPID, CMP #### [facility] [address] [place] [address] Dr. Sona Cruz ALP [Catalytic activity/Vol] 106 U/L Normal 46-116 [facility] Comment on above: Performed By: #### T 7, TSH, LIPID, CMP #### [facility] [address] [place] [address] Dr. Sona Cruz ALT [Catalytic activity/Vol] 22 U/L Normal 14-59 [facility] Comment on above: Performed By: #### T 7, TSH, LIPID, CMP #### [facility] [address] [place] [address] Dr. Sona Cruz Anion gap [Moles/Vol] 12.5 mmol/L Normal [facility] Comment on above: Performed By: #### T 7, TSH, LIPID, CMP #### [facility] [address] [address] [address] Sona Cruz AST [Catalytic activity/Vol] 15 U/L Normal 15-37 [facility] Comment on above: Performed By: #### T 7, TSH, LIPID, CMP #### [facility] [address] [address] [address] Sona Cruz Bilirubin [Mass/Vol] 0.5 mg/dL Normal 0.2-1.0 [facility] Comment on above: Performed By: #### T 7, TSH, LIPID, CMP #### [facility] [address] [place] [address] Dr. Sona Cruz Calcium [Mass/Vol] 9.6 mg/dL Normal 8.5-10.1 [facility] Comment on above: Performed By: #### T 7, TSH, LIPID, CMP #### [facility] [address] [place] [address] Dr. Sona Cruz Chloride [Moles/Vol] 102 mmol/L Normal 98-107 [facility] Comment on above: Performed By: #### T 7, TSH, LIPID, CMP #### [facility] [address] [place] [address] Dr. Sona Cruz CO2 [Moles/Vol] 28.3 mmol/L Normal 21.0-32.0 [facility] Comment on above: Performed By: #### T 7, TSH, LIPID, CMP #### [facility] [address] [place] [address] Dr. Sona Cruz Creatinine [Mass/Vol] 0.62 mg/dL Normal 0.55-1.02 [facility] Comment on above: Performed By: #### T 7, TSH, LIPID, CMP #### [facility] [address] [place] [address] Dr. Sona Cruz EGFR-AF BELGIAN >60 Normal >=60 [facility] Comment on above: Performed By: #### T 7, TSH, LIPID, CMP #### [facility] [address] [address] [address] Sona Cruz EGFR-NON AF BELGIAN >60 Normal >=60 [facility] Comment on above: Performed By: #### T 7, TSH, LIPID, CMP #### [facility] [address] [address] [address] Sona Cruz Globulin (S) [Mass/Vol] 3.7 g/dL Normal [facility] Comment on above: Performed By: #### T 7, TSH, LIPID, CMP #### [facility] [address] [address] [address] Sona Cruz Glucose [Mass/Vol] 106 mg/dL Normal 74-106 [facility] Comment on above: Performed By: #### T 7, TSH, LIPID, CMP #### [facility] [address] [address] [address] Sona Cruz Potassium [Moles/Vol] 3.8 mmol/L Normal 3.5-5.1 [facility] Comment on above: Performed By: #### T 7, TSH, LIPID, CMP #### [facility] [address] [address] [address] Sona Cruz Protein [Mass/Vol] 7.6 g/dL Normal 6.4-8.2 [facility] Comment on above: Performed By: #### T 7, TSH, LIPID, CMP #### [facility] [address] [address] [address] Sona Cruz Sodium [Moles/Vol] 139 mmol/L Normal 136-145 [facility] Comment on above: Performed By: #### T 7, TSH, LIPID, CMP #### [facility] [address] [address] [address] Sona Cruz Urea nitrogen [Mass/Vol] 25.0 mg/dL Critically high 7.0-18.0 [facility] Comment on above: Performed By: #### T 7, TSH, LIPID, CMP #### [facility] [address] [address] [address] Sona Cruz Urea nitrogen/Creatinine [Mass ratio] 40.3 mg/mg Normal [facility] Comment on above: Performed By: #### T 7, TSH, LIPID, CMP #### [facility] [address] [place] [address] Dr. Sona Cruz PROTIMEon 08-12-2022 INR Coag (PPP) [Relative time] {INR} Normal [facility] Comment on above: Performed By: #### T 7, TSH, LIPID, CMP #### [facility] [address] [place] [address] Dr. Sona Cruz INR GUIDELINES SEE BELOW Normal [facility] Comment on above: Result Comment: CAROL RED INR: 2.0 - 3.0 CONDITIONS NOT LISTED BELOW 2.5 - 3.5 FOR PROSTHETIC HEART VALVE REPLACEMENT 2.5 - 3.5 RECURRENT THROMBOSIS Performed By: #### T 7, TSH, LIPID, CMP #### [facility] [address] [place] [address] Dr. Sona Cruz PT Coag (PPP) [Time] 9.7 s Normal 9.0-11.6 [facility] Comment on above: Performed By: #### T 7, TSH, LIPID, CMP #### [facility] [address] [place] [address] Dr. Sona Cruz PTTon 08-12-2022 aPTT Coag (Bld) [Time] 27.1 s Normal 22.3-36.2 [facility] Comment on above: Performed By: #### T 7, TSH, LIPID, CMP #### [facility] [address] [place] [address] Dr. Sona Cruz SED RATE HONOLULUERGRENon 2022 SED RATE 47 mm/hr Critically high <=30 [facility] Comment on above: Performed By: #### T 7, TSH, LIPID, CMP #### [facility] [address] [place] [address] Dr. Sona Cruz TSHon 08-12-2022 TSH 2.474 uIU/mL Normal 0.358-3.740 [facility] Comment on above: Performed By: #### T 7, TSH, LIPID, CMP #### [facility] [address] [address] [address] Sona Cruz UA RANDOM W/MICROSCOPICon BACTERIA NONE SEEN Normal NONE SEEN [facility] Comment on above: Performed By: #### T 7, TSH, LIPID, CMP #### [facility] [address] [place] [address] Dr. Sona Cruz Bilirubin Ql (U) Negative Normal NEGATIVE [facility] Comment on above: Performed By: #### T 7, TSH, LIPID, CMP #### [facility] [address] [place] [address] Dr. Sona Cruz CAST NONE SEEN Normal NONE SEEN [facility] Comment on above: Performed By: #### T 7, TSH, LIPID, CMP #### [facility] [address] [place] [address] Dr. Sona Cruz Clarity (U) CLEAR Normal CLEAR [facility] Comment on above: Performed By: #### T 7, TSH, LIPID, CMP #### [facility] [address] [place] [address] Dr. Sona Cruz Color (U) YELLOW Normal YELLOW [facility] Comment on above: Performed By: #### T 7, TSH, LIPID, CMP #### [facility] [address] [place] [address] Dr. Sona Cruz Crystals LM Nom (Urine sed) NONE SEEN Normal NONE SEEN [facility] Comment on above: Performed By: #### T 7, TSH, LIPID, CMP #### [facility] [address] [place] [address] Dr. Sona Cruz Epithelial cells LM Ql (Urine sed) NONE SEEN Normal NONE SEEN /RARE [facility] Comment on above: Performed By: #### T 7, TSH, LIPID, CMP #### [facility] [address] [place] [address] Dr. Sona Cruz Glucose Ql (U) Negative Normal NEGATIVE [facility] Comment on above: Performed By: #### T 7, TSH, LIPID, CMP #### [facility] [address] [place] [address] Dr. Sona Cruz Hemoglobin Ql (U) Negative Normal NEGATIVE [facility] Comment on above: Performed By: #### T 7, TSH, LIPID, CMP #### [facility] [address] [address] [address] Sona Cruz Ketones Ql (U) Negative Normal NEGATIVE [facility] Comment on above: Performed By: #### T 7, TSH, LIPID, CMP #### [facility] [address] [address] [address] Sona Cruz LEUKOCYTES Negative Normal NEGATIVE [facility] Comment on above: Performed By: #### T 7, TSH, LIPID, CMP #### [facility] [address] [place] [address] Dr. Sona Cruz MUCOUS NONE SEEN Normal NONE SEEN [facility] Comment on above: Performed By: #### T 7, TSH, LIPID, CMP #### [facility] [address] [place] [address] Dr. Sona Cruz Nitrite Ql (U) Negative Normal NEGATIVE [facility] Comment on above: Performed By: #### T 7, TSH, LIPID, CMP #### [facility] [address] [place] [address] Dr. Sona Cruz pH (U) 6.0 [pH] Normal 5-9 [facility] Comment on above: Performed By: #### T 7, TSH, LIPID, CMP #### [facility] [address] [place] [address] Dr. Sona Cruz RBC 0-2 Normal 0-2 [facility] Comment on above: Performed By: #### T 7, TSH, LIPID, CMP #### [facility] [address] [place] [address] Dr. Sona Cruz SPEC GRAVITY 1.010 Normal 1.005-<=1.025 [facility] Comment on above: Performed By: #### T 7, TSH, LIPID, CMP #### [facility] [address] [place] [address] Dr. Sona Cruz UA PROTEIN Negative Normal NEGATIVE/ TRACE [facility] Comment on above: Performed By: #### T 7, TSH, LIPID, CMP #### [facility] [address] [place] [address] Dr. Sona Cruz Urobilinogen Qn (U) 0.2 {Dayanna'U}/dL Normal 0.2 - 1. 0 [facility] Comment on above: Performed By: #### T 7, TSH, LIPID, CMP #### [facility] [address] [place] [address] Dr. Sona Cruz WBC NONE SEEN Normal NONE SEEN [facility] Comment on above: Performed By: #### T 7, TSH, LIPID, CMP #### [facility] [address] [place] [address] Dr. Sona Cruz VITAMIN B12on 08-12-2022 Cobalamin (Vitamin B12) [Mass/Vol] 542.0 pg/mL Normal 193.0-986.0 [facility] Comment on above: Performed By: #### T 7, TSH, LIPID, CMP #### [facility] [address] [place] [address] Dr. Sona Cruz VITAMIN D 25 OHon 08-12-2022 VIT D 25-OH 23.3 ng/mL Normal [facility] Comment on above: Performed By: #### T 7, TSH, LIPID, CMP #### [facility] [address] [place] [address] Dr. Sona Cruz VIT D RANGES SEE BELOW Normal [facility] Comment on above: Result Comment: <20 ng/mL Vit D deficient 20 - <30 ng/mL Vit D insufficient 30 - 100 ng/mL Vit D sufficient >100 ng/mL Potential Toxicity Performed By: #### T 7, TSH, LIPID, CMP #### [facility] [address] [place] [address] Dr. Sona Cruz ANTISTREPTOLYSIN O AB (ASO)o n 06-18-2022 Antistreptolysin O Ab 561.7 IU/mL Critically high 0.0-200. 0 [facility] Comment on above: Performed By: #### T 7, TSH, LIPID, CMP #### [facility] [address] [place] [address] Dr. Sona Cruz INSULINon 06-18-2022 Insulin 11.2 uIU/mL Normal 2.6-24.9 [facility] Comment on above: Performed By: #### T 7, TSH, LIPID, CMP #### [facility] [address] [place] [address] Dr. Sona Cruz CBC AUTO DIFFon 06-17-2022 BASO # 0.1 103/ul Normal 0.0-0.1 [facility] Comment on above: Performed By: #### T 7, TSH, LIPID, CMP #### [facility] [address] [place] [address] Dr. Sona Cruz Basophils/100 WBC (Bld) 0.6 % Normal 0.2-2.0 [facility] Comment on above: Performed By: #### T 7, TSH, LIPID, CMP #### [facility] [address] [place] [address] Dr. Sona Cruz EO # 0.2 103/ul Normal 0.0-0.7 [facility] Comment on above: Performed By: #### T 7, TSH, LIPID, CMP #### [facility] [address] [place] [address] Dr. Sona Cruz Eosinophils/100 WBC (Bld) 1.8 % Normal 0.9-7.0 [facility] Comment on above: Performed By: #### T 7, TSH, LIPID, CMP #### [facility] [address] [place] [address] Dr. Sona Cruz Erythrocyte distribution width (RBC) [Ratio] 15.3 % Critically high 11.0-15.0 [facility] Comment on above: Performed By: #### T 7, TSH, LIPID, CMP #### [facility] [address] [place] [address] Dr. Sona Cruz Hematocrit (Bld) [Volume fraction] 39.1 % Normal 36.0-48.0 [facility] Comment on above: Performed By: #### T 7, TSH, LIPID, CMP #### [facility] [address] [place] [address] Dr. Sona Cruz Hemoglobin (Bld) [Mass/Vol] 12.7 g/dL Normal 12.0-16.0 [facility] Comment on above: Performed By: #### T 7, TSH, LIPID, CMP #### [facility] [address] [place] [address] Dr. Sona Cruz IG # 0.15 10e3/ul Critically high 0.00-0.03 [facility] Comment on above: Performed By: #### T 7, TSH, LIPID, CMP #### [facility] [address] [place] [address] Dr. Sona Cruz IG % 1.3 % Critically high 0.0-0.5 [facility] Comment on above: Performed By: #### T 7, TSH, LIPID, CMP #### [facility] [address] [place] [address] Dr. Sona Cruz LYMPH # 2.0 103/ul Normal 1.2-3.8 [facility] Comment on above: Performed By: #### T 7, TSH, LIPID, CMP #### [facility] [address] [place] [address] Dr. Sona Cruz Lymphocytes/100 WBC (Bld) 16.3 % Critically low 20.5-60.0 [facility] Comment on above: Performed By: #### T 7, TSH, LIPID, CMP #### [facility] [address] [place] [address] Dr. Sona Cruz MANUAL DIFF REQ NO Normal [facility] Comment on above: Performed By: #### T 7, TSH, LIPID, CMP #### [facility] [address] [place] [address] Dr. Sona Cruz MCH (RBC) [Entitic mass] 28.7 pg Normal 26.7-34.0 [facility] Comment on above: Performed By: #### T 7, TSH, LIPID, CMP #### [facility] [address] [place] [address] Dr. Sona Cruz MCHC (RBC) [Mass/Vol] 32.5 g/dL Normal 29.9-35.2 [facility] Comment on above: Performed By: #### T 7, TSH, LIPID, CMP #### [facility] [address] [address] [address] Sona Cruz MCV (RBC) [Entitic vol] 88.3 fL Normal 81.0-99.0 [facility] Comment on above: Performed By: #### T 7, TSH, LIPID, CMP #### [facility] [address] [place] [address] Dr. Sona Cruz MONO # 0.8 103/ul Normal 0.3-0.8 [facility] Comment on above: Performed By: #### T 7, TSH, LIPID, CMP #### [facility] [address] [place] [address] Dr. Sona Cruz Monocytes/100 WBC (Bld) 6.4 % Normal 1.7-12.0 [facility] Comment on above: Performed By: #### T 7, TSH, LIPID, CMP #### [facility] [address] [place] [address] Dr. Sona Cruz NEUT # 8.8 103/ul Critically high 1.4-6.5 [facility] Comment on above: Performed By: #### T 7, TSH, LIPID, CMP #### [facility] [address] [place] [address] Dr. Sona Cruz Neutrophils/100 WBC (Bld) 73.6 % Normal 43.0-75.0 [facility] Comment on above: Performed By: #### T 7, TSH, LIPID, CMP #### [facility] [address] [place] [address] Dr. Sona Cruz Platelet mean volume (Bld) [Entitic vol] 10.3 fL Normal 9.5-13.5 [facility] Comment on above: Performed By: #### T 7, TSH, LIPID, CMP #### [facility] [address] [place] [address] Dr. Sona Cruz PLT 289 103/ul Normal 150-450 [facility] Comment on above: Performed By: #### T 7, TSH, LIPID, CMP #### [facility] [address] [place] [address] Dr. Sona Cruz RBC 4.43 106/ul Normal 4.20-5.40 [facility] Comment on above: Performed By: #### T 7, TSH, LIPID, CMP #### [facility] [address] [address] [address] Sona Cruz WBC 12.0 103/ul Critically high 4.0-11.0 [facility] Comment on above: Performed By: #### T 7, TSH, LIPID, CMP #### [facility] [address] [address] [address] Sona Cruz CULTURE URINEon 06-17-2022 CULTURE URINE Culture Observations: MODERATE GROWTH OF MIXED GENITAL DESI. NO POTENTIAL PATHOGENS SEEN. Normal [facility] Comment on above: Performed By: #### U RCX #### [facility] [address] [address] [address] Sona Cruz [facility]on SARS-CoV-2 (COVID-19) RNA PAVAN+probe Ql (Unsp spec) Not detected Normal NOT DETECTED [facility] Comment on above: Result Comment: This test is not yet approved or cleared by the [place] FDA. When there are no FDA-approved or cleared tests available, and other criteria are met, FDA can make tests available under an emergency access mechanism called an Emergency Use Authorization (EUA). The EUA for this test is supported by the [employer] of Health and Human Service's [...] #### T 7, TSH, LIPID, CMP #### [facility] [address] [address] [address] Sona Cruz FREE THYROXINE INDEX T7on FTI 2.89 Normal 1.30-4.50 [facility] Comment on above: Performed By: #### I MADDI #### [facility] [address] [address] [address] Sona Cruz T3U 34.0 % Normal 30.0-39.0 [facility] Comment on above: Performed By: #### I MADDI #### [facility] [address] [address] [address] Sona Cruz T4 [Mass/Vol] 8.50 ug/dL Normal 4.80-13.90 [facility] Comment on above: Performed By: #### I MADDI #### [facility] [address] [address] [address] Sona Cruz GLYCOHEMOGLOBIN A1Con 2022 ADA RECOMMENDATION SEE BELOW Normal [facility] Comment on above: Result Comment: ADA RECOMMENDED LIMIT 4.0 - 6.0 ADA THERAPEUTIC TARGET < 7.0 ACTION SUGGESTED > 7.0 Performed By: #### T 7, TSH, LIPID, CMP #### [facility] [address] [address] [address] Snoa Cruz Glucose [Mass/Vol] 114 mg/dL Normal [facility] Comment on above: Performed By: #### T 7, TSH, LIPID, CMP #### [facility] [address] [address] [address] Sona Cruz HbA1c (Bld) [Mass fraction] 5.6 % Normal 4.5-6.2 [facility] Comment on above: Performed By: #### T 7, TSH, LIPID, CMP #### [facility] [address] [address] [address] Sona Cruz IRONon 06-17-2022 Iron [Mass/Vol] 50.0 ug/dL Normal 50.0-170.0 [facility] Comment on above: Performed By: #### I MADDI #### [facility] [address] [address] [address] Sona Cruz LIPID PROFILEon 06-17-2022 CHOL-HDL RATIO NORM SEE BELOW Normal [facility] Comment on above: Result Comment: 3.3 - 4.4 LOW RISK 4.4 - 7.1 AVERAGE RISK 7.1 - 11.0 MODERATE RISK >11.0 HIGH RISK Performed By: #### I MADDI #### [facility] [address] [place] [address] Dr. Sona Cruz Cholesterol [Mass/Vol] 203 mg/dL Critically high <=200 [facility] Comment on above: Performed By: #### I MADDI #### [facility] [address] [place] [address] Dr. Sona Cruz Cholesterol in HDL [Mass/Vol] 74 mg/dL Critically high 40-60 [facility] Comment on above: Performed By: #### I MADDI #### [facility] [address] [place] [address] Dr. Sona Cruz Cholesterol in LDL [Mass/Vol] 112.4 mg/dL Normal [facility] Comment on above: Performed By: #### I MADDI #### [facility] [address] [place] [address] Dr. Sona Cruz Cholesterol.total/Cho lesterol in HDL [Mass ratio] 2.7 {ratio} Normal [facility] Comment on above: Performed By: #### I MADDI #### [facility] [address] [place] [address] Dr. Sona Cruz HDL NORMAL > or = 60 mg/dl - LOW CARDIOVASCULAR RISK <40 mg/dl - HIGH CARDIOVASCULAR RISK Normal [facility] Comment on above: Performed By: #### I MADDI #### [facility] [address] [place] [address] Dr. Sona Cruz LDL CALC NORMAL SEE BELOW Normal [facility] Comment on above: Result Comment: <100 mg/dl OPTIMAL 100 - 129 mg/dl NEAR OR ABOVE OPTIMAL 130 - 159 mg/dl BORDERLINE HIGH 160 - 189 mg/dl HIGH >190 mg/dl VERY HIGH Performed By: #### I MADDI #### [facility] [address] [place] [address] Dr. Sona Cruz Triglyceride [Mass/Vol] 83 mg/dL Normal <=150 [facility] Comment on above: Performed By: #### I MADDI #### [facility] [address] [place] [address] Dr. Sona Cruz VLDL CALC 16.6 mg/dL Normal [facility] Comment on above: Performed By: #### I MADDI #### [facility] [address] [place] [address] Dr. Sona Cruz PROF 14(COMP METB)on 023 Albumin [Mass/Vol] 3.5 g/dL Normal 3.4-5.0 [facility] Comment on above: Performed By: #### I MADDI #### [facility] [address] [place] [address] Dr. Sona Cruz Albumin/Globulin [Mass ratio] 0.9 {ratio} Normal [facility] Comment on above: Performed By: #### I MADDI #### [facility] [address] [place] [address] Dr. Sona Cruz ALP [Catalytic activity/Vol] 105 U/L Normal 46-116 [facility] Comment on above: Performed By: #### I MADDI #### [facility] [address] [place] [address] Dr. Sona Cruz ALT [Catalytic activity/Vol] 18 U/L Normal 14-59 [facility] Comment on above: Performed By: #### I MADDI #### [facility] [address] [place] [address] Dr. Sona Cruz Anion gap [Moles/Vol] 10.8 mmol/L Normal [facility] Comment on above: Performed By: #### I MADDI #### [facility] [address] [place] [address] Dr. Sona Cruz AST [Catalytic activity/Vol] 16 U/L Normal 15-37 [facility] Comment on above: Performed By: #### I MADDI #### [facility] [address] [place] [address] Dr. Sona Curz Bilirubin [Mass/Vol] 0.4 mg/dL Normal 0.2-1.0 [facility] Comment on above: Performed By: #### I MADDI #### [facility] [address] [place] [address] Dr. Sona Cruz Calcium [Mass/Vol] 9.2 mg/dL Normal 8.5-10.1 [facility] Comment on above: Performed By: #### I MADDI #### [facility] [address] [place] [address] Dr. Sona Cruz Chloride [Moles/Vol] 101 mmol/L Normal 98-107 [facility] Comment on above: Performed By: #### I MADDI #### [facility] [address] [place] [address] Dr. Sona Cruz CO2 [Moles/Vol] 31.4 mmol/L Normal 21.0-32.0 [facility] Comment on above: Performed By: #### I MADDI #### [facility] [address] [place] [address] Dr. Sona Cruz Creatinine [Mass/Vol] 0.64 mg/dL Normal 0.55-1.02 [facility] Comment on above: Performed By: #### I MADDI #### [facility] [address] [place] [address] Dr. Sona Cruz EGFR-AF BELGIAN >60 Normal >=60 [facility] Comment on above: Performed By: #### I MADDI #### [facility] [address] [place] [address] Dr. Sona Cruz EGFR-NON AF BELGIAN >60 Normal >=60 [facility] Comment on above: Performed By: #### I MADDI #### [facility] [address] [place] [address] Dr. Sona Cruz Globulin (S) [Mass/Vol] 3.9 g/dL Normal [facility] Comment on above: Performed By: #### I MADDI #### [facility] [address] [place] [address] Dr. Sona Cruz Glucose [Mass/Vol] 97 mg/dL Normal 74-106 [facility] Comment on above: Performed By: #### I MADDI #### [facility] [address] [place] [address] Dr. Sona Cruz Potassium [Moles/Vol] 4.2 mmol/L Normal 3.5-5.1 [facility] Comment on above: Performed By: #### I MADDI #### [facility] [address] [address] [address] Sona Cruz Protein [Mass/Vol] 7.4 g/dL Normal 6.4-8.2 [facility] Comment on above: Performed By: #### I MADDI #### [facility] [address] [address] [address] Sona Cruz Sodium [Moles/Vol] 139 mmol/L Normal 136-145 [facility] Comment on above: Performed By: #### I MADDI #### [facility] [address] [address] [address] Sona Cruz Urea nitrogen [Mass/Vol] 21.0 mg/dL Critically high 7.0-18.0 [facility] Comment on above: Performed By: #### I MADDI #### [facility] [address] [address] [address] Sona Cruz Urea nitrogen/Creatinine [Mass ratio] 32.8 mg/mg Normal [facility] Comment on above: Performed By: #### I MADDI #### [facility] [address] [address] [address] Sona Cruz TSHon 06-17-2022 TSH 2.478 uIU/mL Normal 0.358-3.740 [facility] Comment on above: Performed By: #### I MADDI #### [facility] [address] [address] [address] Sona Cruz UA RANDOM W/MICROSCOPICon BACTERIA NONE SEEN Normal NONE SEEN [facility] Comment on above: Performed By: #### T 7, TSH, LIPID, CMP #### [facility] [address] [address] [address] Sona Cruz Bilirubin Ql (U) Negative Normal NEGATIVE [facility] Comment on above: Performed By: #### T 7, TSH, LIPID, CMP #### [facility] [address] [address] [address] Sona Cruz CAST NONE SEEN Normal NONE SEEN [facility] Comment on above: Performed By: #### T 7, TSH, LIPID, CMP #### [facility] [address] [place] [address] Dr. Sona Cruz Clarity (U) CLEAR Normal CLEAR [facility] Comment on above: Performed By: #### T 7, TSH, LIPID, CMP #### [facility] [address] [address] [address] Sona Cruz Color (U) LT. YELLOW Normal YELLOW [facility] Comment on above: Performed By: #### T 7, TSH, LIPID, CMP #### [facility] [address] [place] [address] Dr. Sona Cruz Crystals LM Nom (Urine sed) NONE SEEN Normal NONE SEEN [facility] Comment on above: Performed By: #### T 7, TSH, LIPID, CMP #### [facility] [address] [place] [address] Dr. Sona Cruz Epithelial cells LM Ql (Urine sed) FEW Abnormal NONE SEEN /RARE [facility] Comment on above: Performed By: #### T 7, TSH, LIPID, CMP #### [facility] [address] [place] [address] Dr. Sona Cruz Glucose Ql (U) Negative Normal NEGATIVE [facility] Comment on above: Performed By: #### T 7, TSH, LIPID, CMP #### [facility] [address] [place] [address] Dr. Sona Cruz Hemoglobin Ql (U) Negative Normal NEGATIVE [facility] Comment on above: Performed By: #### T 7, TSH, LIPID, CMP #### [facility] [address] [place] [address] Dr. Sona Cruz Ketones Ql (U) Negative Normal NEGATIVE [facility] Comment on above: Performed By: #### T 7, TSH, LIPID, CMP #### [facility] [address] [place] [address] Dr. Sona Cruz LEUKOCYTES Negative Normal NEGATIVE [facility] Comment on above: Performed By: #### T 7, TSH, LIPID, CMP #### [facility] [address] [place] [address] Dr. Sona Cruz MUCOUS NONE SEEN Normal NONE SEEN [facility] Comment on above: Performed By: #### T 7, TSH, LIPID, CMP #### [facility] [address] [address] [address] Sona Cruz Nitrite Ql (U) Negative Normal NEGATIVE [facility] Comment on above: Performed By: #### T 7, TSH, LIPID, CMP #### [facility] [address] [address] [address] Sona Cruz pH (U) 6.0 [pH] Normal 5-9 [facility] Comment on above: Performed By: #### T 7, TSH, LIPID, CMP #### [facility] [address] [address] [address] Sona Cruz RBC 0-2 Normal 0-2 [facility] Comment on above: Performed By: #### T 7, TSH, LIPID, CMP #### [facility] [address] [address] [address] Sona Cruz SPEC GRAVITY 1.020 Normal 1.005-<=1.025 [facility] Comment on above: Performed By: #### T 7, TSH, LIPID, CMP #### [facility] [address] [address] [address] Sona Cruz UA PROTEIN Negative Normal NEGATIVE/ TRACE [facility] Comment on above: Performed By: #### T 7, TSH, LIPID, CMP #### [facility] [facility] [address] [address] [address] Sona Cruz Urobilinogen Qn (U) 0.2 {Dayanna'U}/dL Normal 0.2 - 1. 0 [facility] Comment on above: Performed By: #### T 7, TSH, LIPID, CMP #### [facility] [address] [address] [address] Sona Cruz WBC 0-2 Abnormal NONE SEEN [facility] Comment on above: Performed By: #### T 7, TSH, LIPID, CMP #### [facility] [address] [address] [address] Sona Cruz ANTISTREPTOLYSIN O AB (ASO)o n 05-18-2022 Antistreptolysin O Ab 866.8 IU/mL Critically high 0.0-200. 0 [facility] Comment on above: Result Comment: Resu lts confirmed on dilution. Performed By: #### T 7, TSH, LIPID, CMP #### [facility] [address] [place] [address] Dr. Sona Cruz CBC AUTO DIFFon 05-17-2022 BASO # 0.1 103/ul Normal 0.0-0.1 [facility] Comment on above: Performed By: #### T 7, TSH, LIPID, CMP #### [facility] [address] [place] [address] Dr. Sona Cruz Basophils/100 WBC (Bld) 0.6 % Normal 0.2-2.0 [facility] Comment on above: Performed By: #### T 7, TSH, LIPID, CMP #### [facility] [address] [place] [address] Dr. Sona Cruz EO # 0.2 103/ul Normal 0.0-0.7 [facility] Comment on above: Performed By: #### T 7, TSH, LIPID, CMP #### [facility] [address] [place] [address] Dr. Sona Cruz Eosinophils/100 WBC (Bld) 1.8 % Normal 0.9-7.0 [facility] Comment on above: Performed By: #### T 7, TSH, LIPID, CMP #### [facility] [address] [place] [address] Dr. Sona Cruz Erythrocyte distribution width (RBC) [Ratio] 14.2 % Normal 11.0-15.0 [facility] Comment on above: Performed By: #### T 7, TSH, LIPID, CMP #### [facility] [address] [place] [address] Dr. Sona Cruz Hematocrit (Bld) [Volume fraction] 44.7 % Normal 36.0-48.0 [facility] Comment on above: Performed By: #### T 7, TSH, LIPID, CMP #### [facility] [address] [place] [address] Dr. Sona Cruz Hemoglobin (Bld) [Mass/Vol] 14.4 g/dL Normal 12.0-16.0 [facility] Comment on above: Performed By: #### T 7, TSH, LIPID, CMP #### [facility] [address] [address] [address] Sona Cruz IG # 0.09 10e3/ul Critically high 0.00-0.03 [facility] Comment on above: Performed By: #### T 7, TSH, LIPID, CMP #### [facility] [address] [place] [address] Dr. Sona Cruz IG % 0.7 % Critically high 0.0-0.5 [facility] Comment on above: Performed By: #### T 7, TSH, LIPID, CMP #### [facility] [address] [place] [address] Dr. Sona Cruz LYMPH # 2.2 103/ul Normal 1.2-3.8 [facility] Comment on above: Performed By: #### T 7, TSH, LIPID, CMP #### [facility] [address] [place] [address] Dr. Sona Cruz Lymphocytes/100 WBC (Bld) 17.2 % Critically low 20.5-60.0 [facility] Comment on above: Performed By: #### T 7, TSH, LIPID, CMP #### [facility] [address] [place] [address] Dr. Sona Cruz MANUAL DIFF REQ NO Normal [facility] Comment on above: Performed By: #### T 7, TSH, LIPID, CMP #### [facility] [address] [place] [address] Dr. Sona Cruz MCH (RBC) [Entitic mass] 28.7 pg Normal 26.7-34.0 [facility] Comment on above: Performed By: #### T 7, TSH, LIPID, CMP #### [facility] [address] [place] [address] Dr. Sona Cruz MCHC (RBC) [Mass/Vol] 32.2 g/dL Normal 29.9-35.2 [facility] Comment on above: Performed By: #### T 7, TSH, LIPID, CMP #### [facility] [address] [place] [address] Dr. Sona Cruz MCV (RBC) [Entitic vol] 89.0 fL Normal 81.0-99.0 [facility] Comment on above: Performed By: #### T 7, TSH, LIPID, CMP #### [facility] [address] [place] [address] Dr. Sona Cruz MONO # 0.9 103/ul Critically high 0.3-0.8 [facility] Comment on above: Performed By: #### T 7, TSH, LIPID, CMP #### [facility] [address] [place] [address] Dr. Sona Cruz Monocytes/100 WBC (Bld) 6.5 % Normal 1.7-12.0 [facility] Comment on above: Performed By: #### T 7, TSH, LIPID, CMP #### [facility] [address] [place] [address] Dr. Sona Cruz NEUT # 9.5 103/ul Critically high 1.4-6.5 [facility] Comment on above: Performed By: #### T 7, TSH, LIPID, CMP #### [facility] [address] [place] [address] Dr. Sona Cruz Neutrophils/100 WBC (Bld) 73.2 % Normal 43.0-75.0 [facility] Comment on above: Performed By: #### T 7, TSH, LIPID, CMP #### [facility] [address] [place] [address] Dr. Sona Cruz Platelet mean volume (Bld) [Entitic vol] 10.5 fL Normal 9.5-13.5 [facility] Comment on above: Performed By: #### T 7, TSH, LIPID, CMP #### [facility] [address] [place] [address] Dr. Sona Cruz PLT 319 103/ul Normal 150-450 [facility] Comment on above: Performed By: #### T 7, TSH, LIPID, CMP #### [facility] [address] [place], [place] [id number] Dr. Sona Cruz RBC 5.02 106/ul Normal 4.20-5.40 [facility] Comment on above: Performed By: #### T 7, TSH, LIPID, CMP #### [facility] [address] [place] [address] Dr. Sona Cruz WBC 13.0 103/ul Critically high 4.0-11.0 [facility] Comment on above: Performed By: #### T 7, TSH, LIPID, CMP #### [facility] [address] [place] [address] Dr. Sona Curz CRPon 05-17-2022 CRP [Mass/Vol] mg/L Normal <=1.0 [facility] Comment on above: Performed By: #### T 7, TSH, LIPID, CMP #### [facility] [address] [place] [address] Dr. Sona Cruz CULTURE BLOODon 05-17-2022 Microscopic examination of blood, culture Culture Observations: NO GROWTH AT 5 DAYS. Normal [facility] Comment on above: Performed By: #### B LDCX2 #### [facility] [address] [place] [address] Dr. Sona Cruz Microscopic examination of blood, culture Culture Observations: NO GROWTH AT 5 DAYS. Normal [facility] Comment on above: Performed By: #### B LDCX1 #### [facility] [address] [place] [address] Dr. Sona Cruz SED RATE WESTERGRENon 2021 SED RATE 54 mm/hr Critically high <=30 [facility] Comment on above: Performed By: #### T 7, TSH, LIPID, CMP #### [facility] [address] [place] [address] Dr. Sona Cruz MRI LSPINE WO CONon [...] YUNIOR ROBBINS Date: 2022-05-06 15:01 Normal [facility] MG MAMM SCREEN 3D CESAR CADon 04-15-2022 MG MAMM SCREEN 3D CESAR CAD Patient: SYLVIE ALTAMIRANO Exam Date: 04/15/2022 : 1970 Gender:F Ordering : DR ELEUTERIO CARRANZA . Admission #: [id number] Family : Order #: [id number] CLICK HERE TO VIEW EXAM RADIOLOGY REPORT PROCEDURE: MAMMOGRAM SCREENING 3D BILATERAL CAD COMPARISON: None. INDICATIONS: Screening mammography Calculator Name NCI Breast Cancer Risk Assessment Tool 5 Year Breast Cancer Risk 0.80% Lifetime Breast Cancer Risk 7.10% Personal Breast Cancer No Personal Ovarian Cancer No Treatments None Family Cancers Sister with colon cancer at age 34. LOCATION: [facility] BREAST COMPOSITION: Almost entirely fatty. FINDINGS: [...] Hickey MD on 04/15/2022 at 14:17 Normal [facility] ECHOCARDIO M/2D COMPLETEon 1 ECHOCARDIO M/2D COMPLETE Patient: SYLVIE ALTAMIRANO Exam Date: 04/08/2022 : 1970 Gender:F Ordering : DR ELEUTERIO CARRANZA . Admission #: [id number] Family : Order #: [id number] CLICK HERE TO VIEW EXAM ECHOCARDIOGRAM REPORT [...] Lazaro M.D. on 04/13/2022 at 11:32 Normal [facility] SLE PROFILE Aon 04-01-2022 Anti-DNA (DS) Ab Qn 1 IU/mL Normal 0-9 [facility] Comment on above: Result Comment: Nega tive <5 Equivocal 5 - 9 Positive >9 Performed By: #### T 7, TSH, LIPID, CMP #### [facility] [address] [address] [address] Sona Cruz Antichromatin Antibodies <0.2 Normal 0.0-0.9 [facility] Comment on above: Performed By: #### T 7, TSH, LIPID, CMP #### [facility] [address] [place] [address] Dr. Sona Cruz RA Latex Turbid. <10.0 Normal <14.0 [facility] Comment on above: Performed By: #### T 7, TSH, LIPID, CMP #### [facility] [address] [place] [address] Dr. Sona Cruz GROUND INSTRUCTOR BASIC Antibodies 0.2 AI Normal 0.0-0.9 [facility] Comment on above: Performed By: #### T 7, TSH, LIPID, CMP #### [facility] [address] [place] [address] Dr. Sona Cruz Sjogrольга's Anti-SS-A <0.2 Normal 0.0-0.9 [facility] Comment on above: Performed By: #### T 7, TSH, LIPID, CMP #### [facility] [address] [place] [address] Dr. Sona Cruz Sjogrольга's Anti-SS-B <0.2 Normal 0.0-0.9 [facility] Comment on above: Performed By: #### T 7, TSH, LIPID, CMP #### [facility] [address] [place] [address] Dr. Sona Cruz Judd Antibodies <0.2 Normal 0.0-0.9 [facility] Comment on above: Performed By: #### T 7, TSH, LIPID, CMP #### [facility] [address] [place] [address] Dr. Sona Cruz REGGIE by IFAon 03-31-2022 Antinuclear Antibodies, IFA Negative Normal [facility] Comment on above: Result Comment: Nega tive <1:80 Borderline 1:80 Positive >1:80 ICAP nomenclature: AC-0 For more information about Hep-2 cell patterns use ANApatterns.org, the official website for the International Consensus on Antinuclear Antibody (REGGIE) Patterns (ICAP). Performed By: #### T 7, TSH, LIPID, CMP #### [facility] [address] [place] [address] Dr. Sona Cruz RHEUMATOID FACTORon 03-31-20 RA Latex Turbid. <10.0 Normal <14.0 [facility] Comment on above: Performed By: #### T 7, TSH, LIPID, CMP #### [facility] [address] [place] [address] Dr. Sona Cruz ANTISTREPTOLYSIN O AB (ASO)o n 03-30-2022 Antistreptolysin O Ab 1118.1 IU/mL Critically high 0.0-200 .0 [facility] Comment on above: Result Comment: Resu lts confirmed on dilution. Performed By: #### T 7, TSH, LIPID, CMP #### [facility] [address] [place] [address] Dr. Sona Cruz DANIELLE-GARCIA VIRUS (EBV) AB PROFILEon 03-30-2022 EBV Ab VCA, IgG 57.9 U/mL Critically high 0.0-17.9 [facility] Comment on above: Result Comment: Nega tive <18.0 Equivocal 18.0 - 21.9 Positive >21.9 Performed By: #### T 7, TSH, LIPID, CMP #### [facility] [address] [place] [address] Dr. Sona Cruz EBV Ab VCA, IgM <36.0 Normal 0.0-35.9 [facility] Comment on above: Result Comment: Nega tive <36.0 Equivocal 36.0 - 43.9 Positive >43.9 Performed By: #### T 7, TSH, LIPID, CMP #### [facility] [address] [place] [address] Dr. Sona Cruz EBV Nuclear Antigen Ab, IgG 135.0 U/mL Critically high 0.0-17.9 [facility] Comment on above: Result Comment: Nega tive <18.0 Equivocal 18.0 - 21.9 Positive >21.9 Performed By: #### T 7, TSH, LIPID, CMP #### [facility] [address], [place] [address] Dr. Sona Cruz Interpretation: Comment Normal [facility] Comment on above: Result Comment: EBV [...] #### T 7, TSH, LIPID, CMP #### [facility] [address], [place] [address] Dr. Sona Cruz XR KNEE CESAR 4V [...] by: YUNIOR ROBBINS Date: 2022-03-30 07:05 Normal [facility] XR LSPINE MIN 4 VIEWSon 03-12 [...] YUNIOR ZIMARILOUDONALD Date: 2022-03-30 07:13 Normal [facility] CRPon 03-29-2022 CRP 1.4 mg/dL Critically high <=1.0 [facility] Comment on above: Performed By: #### T 7, TSH, LIPID, CMP #### [facility] [address] [address] [address] Sona Cruz FREE THYROXINE INDEX T7on FTI 2.62 Normal 1.30-4.50 [facility] Comment on above: Performed By: #### T 7, TSH, LIPID, CMP #### [facility] [address] [place] [address] Dr. Sona Cruz T3U 34.0 % Normal 30.0-39.0 [facility] Comment on above: Performed By: #### T 7, TSH, LIPID, CMP #### [facility] [address] [address] [address] Sona Cruz T4 [Mass/Vol] 7.70 ug/dL Normal 4.80-13.90 [facility] Comment on above: Performed By: #### T 7, TSH, LIPID, CMP #### [facility] [address] [address] [address] [facility] mm/hr Critically high <=30 [facility] Comment on above: Performed By: #### T 7, TSH, LIPID, CMP #### [facility] [address] [place] [address] Dr. Sona Cruz TSHon 03-29-2022 TSH 2.577 uIU/mL Normal 0.358-3.740 [facility] Comment on above: Performed By: #### T 7, TSH, LIPID, CMP #### [facility] [address] [place] [address] Dr. Sona Cruz URIC ACID SERUMon 03-29-2022 Urate [Mass/Vol] 4.2 mg/dL Normal 2.6-6.0 [facility] Comment on above: Performed By: #### T 7, TSH, LIPID, CMP #### [facility] [address] [address] [address] Sona Cruz CHEMISTRYOrdered By: SYSTEM SYSTEM [...] jacome 03-05-2024 09:25-0400 Blood Pressure Location Nica ScirraL [facility] [place] 03-05-2024 09:25-0400 Diastolic blood pressure 81 mm[Hg] Nica FRANCOL [facility] [place] 03-05-2024 09:25-0400 Heart rate 114 /min Nica ScirraL [facility] [place] 03-05-2024 09:25-0400 Respiratory rate 16 /min Nica FRANCOL [facility] [place] 03-05-2024 09:25-0400 Systolic blood pressure 134 mm[Hg] Nica FRANCOL [facility] [place] 05-17-2022 13:43-0500 Blood Pressure Location Nica NILL [facility] 05-17-2022 13:43-0500 Diastolic blood pressure 86 mm[Hg] Nica NILL [facility] 05-17-2022 13:43-0500 Heart rate 72 /min Nica FRANCOL [facility] 05-17-2022 13:43-0500 Respiratory rate 16 /min Nica ISRAEL [facility] [place] 05-17-2022 [id number] Systolic blood pressure 122 mm[Hg] Nica ISRAEL [facility] [place] Encounters Encounter Date Encounter Type Care Provider Facility Start: 03-05-2024 End: 03-05-2024 ambulatory Nica Belle QI Facility: [facility] Start: 03-05-2024 End: 03-05-2024 Patient encounter procedure Nica ISRAEL [facility] [place] Start: 02-29-2024 ambulatory Nica ISRAEL Facility:[facility] [place] Start: 10-26-2022 End: 10-26-[address] ELEUTERIO CARRANZA . Facility:[facility] Start: 09-30-2022 End: 10-01-[address] ELEUTERIO CARRANZA . Facility:[facility] Start: 08-12-2022 End: 08-13-[address] ELEUTERIO CARRANZA . Facility:[facility] Start: 06-22-2022 End: 06-22-[address] NICA ISRAEL . Facility:[facility] Start: 06-20-2022 Encounter for preprocedural laboratory examination DR ELEUTERIO CARRANZA . [facility] Start: 06-17-2022 End: 06-18-2022 Encounter for preprocedural laboratory examination DR ELEUTERIO CARRANZA . Facility:[facility] Start: 06-17-2022 End: 06-18-[address] ELEUTERIO CARRANZA . Facility:[facility] Start: 05-17-2022 End: 05-18-[address] ELEUTERIO CARRANZA . Facility:[facility] Start: 05-17-2022 End: 05-17-2022 Patient encounter procedure Nica ISRAEL [facility] [place] Start: 05-06-2022 End: 05-07-[address] ELEUTERIO [...] End: 02-17-2022 Patient encounter procedure Eleuterio Carranza [facility] Start: 01-17-2022 End: 04-17-2022 Recurring AYAAN BAH [facility] Procedures Date Procedure Procedure Detail Performing Clinician Start: 06-22-2022 Colonoscopy Nica NI LL Start: 08-10-2011 Colonoscopy Nica NI LL Appendectomy Nica NILL Cholecystectomy Nica NILL Colonoscopy Nica NILL Dilation and curettage Yeison FRANCOL Exploratory laparotomy Yeison FRANCOL Total hysterectomy v ia vaginal approach Nica FRANCOL Immunizations Immunization Date Immunization Notes Care Provider Fa cility 05-16-2021 SARS-CoV-2 (COVID-19 ) mRNA-1273 vaccine Nica NILL [facility] [place] 04-29-2021 SARS-CoV-2 (COVID-19 ) Ad26 vaccine, recombinant Nica SALVADORL [facility] [place] NEGATED: Highlighted row has not occurred!05-17-2022 influenza virus vaccine, unspecified formulation Nica ISRAEL [facility] [place] Payers Date Payer Category Payer Unknown [id number] 2.16.84 [id number] 1970 Unknown [id number] 2.16.84 [id number] 1970 Unknown [id number] 2.16.84 [id number] 1971 Unknown [id number] 2.16.84 [id number] 1971 Unknown [id number] 2.16.84 [id number] 1971 Unknown [id number] 2.16.84 0.1.569905.3.579.2.593 1971 Unknown [id number] 2.16.84 0.1.531697.3.579.2.593 1971 Unknown [id number] 2.16.84 0.1.212498.3.579.2.593 1971 Unknown [id number] 2.16.84 0.1.267548.3.579.2.593 1971 Unknown [id number] 2.16.84 [id number] 1971 Unknown [id number] 2.16.84 0.1.796476.3.579.2.593 1971 Unknown [id number] 2.16.84 0.1.532560.3.579.2.593 1971 Unknown [id number] 2.16.84 0.1.273194.3.579.2.593 1971 Unknown [id number] 2.16.84 0.1.347790.3.579.2.593 1971 Unknown [id number] 2.16.84 [id number] 1971 Unknown [id number] 2.16.8 [id number] 1958 Self-pay 1958 Unknown [id number] 1958 Unknown [id number] Social History Date Type Detail Facility Tobacco [facility] Comment on above: denies Sex Assigned At Female [facility] Tobacco smoking status No Smokin g Status Entered [facility] Start: 05-17-2022 Tobacco smoking status Heavy t obacco smoker (finding) [facility] [place] Tobacco smoking status Never [facility] [place] Start: 03-05-2024 Tobacco smoking status Light t obacco smoker (finding) [facility] [place] Functional Status Date Assessment Result Facility 03-05-2024 Functional Status N/A [facility] [place] 05-17-2022 Functional Status N/A [facility] Clinical Note 03-05-2024 Note Date & Type [...] Recorded SARS-CoV-2 (COVID-19) Ad26 vaccine 04/29/2021 Recorded [facility] Comment on above: Result Comment: Elec tronically [...] pathology results. CC: Eleuterio Carranza M.D. [facility] Evaluation + Plan note 02-17-2022 Note Date & Type Note Facility 02-17-2022 Evaluation + Plan note Diagnostic Tests PendingInsulin Level Total 02/17/22 [facility] Evaluation + Plan note Note Date & Type Note Facility Evaluation + Plan note Future Appointments Appointment Date:04/29/2022 01:00:00 PM Scheduled Provider:Nica ISRAEL MD Location:[facility] Appointment Type:[address] Hospital course Narrative Note Date & Type Note Facility Hospital course Narrative No data available for this section [facility] Hospital Discharge instructions Note Date & Type Note Facility Hospital Discharge instructions No data available for this section [facility] Progress note Note Date & Type Note Facility Progress note No data available for this section [facility] Summary Purpose Family History No Family History Records Found No data available for this section No Family History Records Found Advance Directives No Advanced Directives Records FoundNo Advanced Directives Records Found Additional Source Comments Care Team (unrecognized sect ion and content) Personnel Name: Eleuterio Carranza MD Address: [address] [place] [address] Personnel Name: Eleuterio Carranza MD Address: Address: [address] [place] [address] Personnel Name: Eleuterio Carranza MD Address: Address: [address] [place] [address] Personnel Name: Eleuterio Carranza MD Address: Address: [address] [place] [address] INFORMATION SOURCE (unrecogn ized section and content) DATE CREATED AUTHOR 10/27/2022 [facility] DATE CREATED AUTHOR AUTHOR'S ORGANIZ ATION 03/07/[address] [facility] FOR RECORDS PERTAINING TO PATIENTS WHO ARE [...] BE BASED ON THE PRIMARY CLINICAL RECORDS. [facility] [employer] [facility]. provides no warranty or guarantee of the accuracy or completeness of information in this document.
[2024-10-22 14:50] LABS: Alanine Aminotransferase 29 U/L (14-59); Albumin Globulin Ratio 0.8; Albumin Level 3.1 g/dL (3.4-5.0); Alkaline Phosphatase 121 U/L (46-116); Anion Gap 7.6; Aspartate Amino Transferase 13 U/L (15-37); BUN Creatinine Ratio 16.8; Bilirubin Total 0.3 mg/dL (0.2-1.0); C Reactive Protein 3.08 mg/dL (<=0.50); Calcium 9.5 mg/dL (8.5-10.1); Carbon Dioxide 31.6 mmol/L (21.0-32.0); Chloride 101 mmol/L (98-107); Estimated GFR (African America >60 (>=60 mL/min/1.73m^2); Estimated GFR (Non-African Ame >60 (>=60 mL/min/1.73m^2); Glucose 125 mg/dL (74-106); Lactate Dehydrogenase 153 U/L (81-234); Potassium 4.2 mmol/L (3.5-5.1); Sodium 136 mmol/L (136-145); Thyroid Stimulating Hormone 1.566 uIU/mL (0.358-3.740); Total Protein 7.1 g/dL (6.4-8.2)
[2024-10-22 15:00] LABS: Free T4 1.32 ng/dL (0.76-1.46)
== END 2024-10-22 14:06 | disposition home or self-care (01) ==
LOC: LAB 14:14
PROVIDERS: PCP Family Medicine; Visit Provider Internal Medicine Hematology & Oncology
DX: D72.829 Elevated white blood cell count, unspecified (principal); D64.9 Anemia, unspecified; R70.0 Elevated erythrocyte sedimentation rate; Z13.820 Encounter for screening for osteoporosis
CPT/HCPCS: 36415; 80053; 83615; 84439; 84443; 85025; 85652; 86140

== ENCOUNTER 2024-11-12 07:43 | Outpatient (RCR) | payer OTHER, SELFPAY | END 2024-12-09 23:59 | disposition home or self-care (01) | LOC: HEMC 07:43 | PROVIDERS: PCP Family Medicine; Visit Provider Internal Medicine Hematology & Oncology | DX: D72.829 Elevated white blood cell count, unspecified (principal); Z90.49 Acquired absence of other specified parts of digestive tract; Z90.710 Acquired absence of both cervix and uterus; F17.210 Nicotine dependence, cigarettes, uncomplicated ==

== ENCOUNTER 2025-03-18 14:45 | Outpatient (OUT) | payer OTHER, SELFPAY ==
--- OUTSIDE RECORDS SUMMARY | 2024-04-23 04:00 | XMS_ITS ---
Author Organization [facility] [place] Address [address] [place] [address] Care Team Providers Care Senior Animal Trainer Name Role Phone Srinath Carranza Primary Care Provider Renetta Alejandre Unavailable [phone] REASON FOR VISIT MD Encounters Encounter Location Date Provider Diagnosis [facility] Oncology [address] [place] [address] 04/23/2024 Renetta Alejandre Plan Of Treatment Next Appt Details Provider Name:Renetta Alejandre , 04/22/2025 02:15:00 PM, [address] [place], [address], Progress Notes * Treva ALTAMIRANO LDOB:1970 (54 yo F)Acc No.[id number]:04/23/2024 UNLOCKED PROGRESS NOTE Progress Notes Patient: Treva MONTE Provider: Annmarie Alejandre M.D. :1970 A ge:53 Y S ex:Female Date:04/23/2024 Address:[address] [place] [address] [facility] Pcp:Srinath Carranza Subjective: * Chief Complaints: * 1 . MD. * Medical History: Objective: * Vitals: Assessment: Plan: * Treatment: * * Electronic signature of Amandeep Alejandre MD, [id number] on 03/18/2025 at 02:48 PM EDT Sign off status: Pending Visit Status: V JASMYNEG (Voice) * Provider: Annmarie Alejandre M.D. Date: 1 06/23/2023 Generated for Xiomy Gale/Rambo on: 02:48 PM EDT
--- OUTSIDE RECORDS SUMMARY | 2024-10-08 11:00 | XMS_ITS ---
Author Organization [facility] in [place] Address [address] [place] [address] Care Team Providers Care Review Coordinator Name Role Phone Srinath Carranza Primary Care Provider [phone] Renetta Alejandre Unavailable [phone] REASON FOR VISIT MD TELEHEALTH Encounters Encounter Location Date Provider Diagnosis [facility] Oncology [address] [place] [address] 10/08/2024 Renetta Alejandre Plan Of Treatment Next Appt Details Provider Name:Renetta Alejandre , 04/22/2025 02:15:00 PM, [address] [place], [address], Progress Notes * Treva ALTAMIRANO LDOB:1970 (54 yo F)Acc No.[id number]:10/08/2024 UNLOCKED PROGRESS NOTE Progress Notes Patient: Treva MONTE Provider: Annmarie Alejandre M.D. :1970 A ge:54 Y S ex:Female Date:10/08/2024 Address:[address] [place], [place] [id number] Pcp:Srinath Carranza Subjective: * Chief Complaints: * 1 . TELEHEALTH. * Medical History: Objective: * Vitals: Assessment: Plan: * Treatment: * * Electronic signature of Amandeep Alejandre MD, [id number] on 03/18/2025 at 02:48 PM EDT Sign off status: Pending Visit Status: C ANC (Cancelled) * Provider: Annmarie Alejandre M.D. Date: 0 10/08/2024 Generated for Xiomy Gale/Rambo on: 1 02:48 PM EDT
--- OUTSIDE RECORDS SUMMARY | 2025-03-10 13:30 | XMS_ITS ---
Author Organization [facility] [place] Address [address] [place] [address] Care Team Providers Care Visiting Professor Name Role Phone Srinath Carranza Primary Care Provider [phone] Allergies Allergen (clinical drug ingredient) Drug/Non Drug Allergy documented on EMR Reaction Allergy Type Onset Date Status Effexor dizzy, vomiting Drug Allergy A ctive hyaluronate Gelsyn-3 swelling and pain Drug Allergy Active REASON FOR VISIT Not feeling well- wants labs done, states she feels off, shaky, when she eats she feels nausous, states the right side of her body is always in pain Medications Medication SIG (Take, Route, Frequency, Duration) Notes Start Date End Date Status Promethazine HCl 25 MG 1 tablet as neede d Orally every 12 hrs; Duration: 30 day(s) PRN Active Simvastatin 20 MG TAKE 1 TABLET BY SOLO TH ONCE DAILY IN THE EVENING; Duration: 30 Active tiZANidine HCl 4 MG 2 tabs Orally qhs; Duration: 30 days 08/27/2024 Active Triamcinolone Acetonide 0.1 % 1 application Externally Two times a Week PRN Active Wellbutrin SR 200 MG 1 tablet Orally BID ; Duration: 30 days 02/09/2023 Active Lisinopril 30 MG Take 1 tablet by sool th once daily; Duration: 30 Active Myrbetriq 25 MG 1 tablet Orally Once a day; Duration: 30 days 02/27/2024 Active Nebulizer Air Tube/Plugs - Use with nebu lizer daily; Duration: 90 days PRN 10/28/2022 Active Nebulizer Mask Adult - Use with nebulize r up to 4 times daily; Duration: 90 days PRN 10/28/2022 Active Pantoprazole Sodium 40 MG Take 1 tablet by mouth once daily; Duration: 30 Active Albuterol Sulfate (2.5 MG/3ML) 0.083% 3 mL as needed Inhalation every 6 hrs; Duration: 30 days PRN 10/28/2022 Active Dulera 100-5 MCG/ACT 2 puffs Inhalation Twice a day Active Hydrocortisone 10 MG 1 tablet Orally bid ; Duration: 30 days 11/23/2023 Active Levothyroxine Sodium 50 MCG TAKE 1 TABLE T BY MOUTH ONCE DAILY IN THE MORNING ON AN EMPTY STOMACH; Duration: 30 Active Levsin/SL 0.125 MG 1 tablet under the tongue and allow to dissolve as needed Sublingual Three times a day PRN Active Daypro 600 MG 2 tablets Orally roberto ly; Duration: 20 days 03/10/2025 Active Social History Tobacco Use: Social History Observation Description Date Details (start date - stop date) Current Smoker 12/10/2020 - NA Tobacco Use/Smoking Question Answer Notes Patient is a former smoker When did you start smoking? 06/12/2020 When did you stop smoking? 03/12/2023 Tobacco Control (Standard) Question Answer Notes Tobacco use: Current smoker When did you start smoking? 12/10/2020 How often do you smoke cigarettes? Every day How many cigarettes a day do you smoke? 6-10 How soon after you wake up d o you smoke your first cigarette? Within 5 minutes Are you interested in quitting? Thinking about q uitting AUDIT-C (Standard) Question Answer Notes Did you have a drink containing alcohol in the p ast year? No Points 0 Interpretation Negative Vital Signs Weight 304 lbs 03/10/2025 Height 63 in 03/10/2025 Blood pressure systolic 124 mm Hg 03/10/20 25 Blood pressure diastolic 74 mm Hg 025 BMI 53.85 kg/m2 03/10/2025 Encounters Encounter Location Date Provider Diagnosis [address] [id number] 03/10/2025 Srinath Carranza Well adult Z00.0 0 Assessments Encounter Date Diagnosis (ICD Code) Assessment Notes Treatment Notes Treatment Clinical Notes Section Notes 03/10/2025 Well adult (ICD-10 - Z00.00) Plan Of Treatment Medication Medication Name Sig Start Date Stop Date Notes Meloxicam 15 MG TAKE 1 TABLET BY SOLO TH ONCE DAILY NEEDED Daypro 600 MG 2 tablets Orally daily; Duration: 20 days Pending Test Test Name Order Date HEMOGLOBIN A1C (GLYCO) 03/10/2025 IRON, TOTAL 03/10/2025 LIPID PANEL (CHOL/TRIG/HDL/LDL) 03/10/20 25 RHEUMATOID PANEL 03/10/2025 Insulin Level 03/10/2025 SED RATE WESTERGREN 03/10/2025 THYROID PANEL (T4/TSH/FREE T3) 5 MM screening mammo BI 03/10/2025 CMP (COMP MET [facility]) w/eGFR CKD-EPI 2024 CBC WITH DIFF 03/10/2025 Next Appt Details Provider Name:Renetta Alejandre , 04/22/2025 02:15:00 PM, [address] [place], [address], Progress Notes * Treva ALTAMIRANO LDOB:1970 (54 yo F)Acc No.[id number]:03/10/2025 Progress Note Patient: Treva MONTE Provider: Paola Carranza ([facility])MD :1970 A ge:54 Y S ex:Female Date:03/10/2025 Address:[address] [place], [place] [id number] Check In:05:26 PM ESTCheck O ut:06:06 PM EST Subjective: * Chief Complaints: * N ot feeling well- wants labs doneStates she feels off, shaky, when she eats she feels nausous, states the right side of her body is always in pain * HPI: G eneral: feeshakey - diff walking due to pain chang into R leg R shoulder also with pain. * ROS: E ENT: hearing changes d enies. v isual changes d enies.?non-healing mouth sores d enies. s wollen glands or neck lumps d enies. h oarseness d enies. s ore throat d enies. d ifficulty swallowing d enies. n ose bleeds d enies. n florina congestion d enies. e ar ache d enies. e ar discharge?denies. r inging in ears d enies. l ight sensitivity d enies. e ye pain d enies. b lurring d enies. e ye irritation d enies. d ouble vision d enies.?vision loss d enies. G eneral/Constitutional: Sweats: D enies. F atigue d enies. S leep problems d enies. A norexia d enies. M alaise d enies. W eight loss d enies.?Fatigue or Weakness d enies. F ever or Chills d enies. C ardiovascular: Shortness of Breath w/lying flat d enies. L ightheadedness/dizziness d enies. C hest tightness/ heavy pressure d enies. S welling of legs, ankles, or feet d enies. W aking up with shortness of breath d enies. C hest pain denies. P alpitations d enies. W eight gain d enies. R espiratory: Chronic or frequent cough d enies. C oughing up blood?denies. D ifficulty breathing d enies. P roductive cough d enies. S noring?denies. S hortness of breath that awakens from sleep (PND) d enies. C hest pain d enies. S putum production d enies. W heezing d enies. P oor rom in e shouildre an low back. * Active Problem List F43.10 Post-traumatic stres s disorder, unspecified Modified On:09/02/2022/U Status:confirmed K21.9 Gastro-esophageal re flux disease without esophagitis Modified On:03/01/2023U Status:confirmed E66.9 Obesity, unspecified classification, unspecified obesity type, unspecified whether serious comorbidity present Modified On:04/27/2023U Status:confirmed K58.9 Irritable bowel synd angela, unspecified type Modified On:09/02/2022U Status:confirmed H81.09 Meniere's disease, u nspecified laterality Modified On:09/02/2022U Status:confirmed F32.9 Depression Modified On:09/02/2022 Status:confirmed C18.9 Malignant neoplasm o f colon, unspecified Modified On:09/02/2022 Status:confirmed F41.9 Anxiety Modified On:02/09/2023 Status:confirmed K29.60 Gastritis medicament marie Modified On:09/02/2022 Status:confirmed G47.30 Sleep apnea, unspeci fied type Modified On:09/02/2022 Status:confirmed M54.16 Radiculopathy, lumba r region Modified On:04/27/2023 Status:confirmed M17.0 Bilateral primary os teoarthritis of knee Modified On:04/27/2023 Status:confirmed Z00.00 Well adult Modified On:12/06/2022 Status:confirmed I10 Essential (primary) hypertension Modified On:08/04/2023 Status:confirmed E78.00 Pure hypercholestero lemia, unspecified Modified On:03/06/2023 Status:confirmed R60.9 Edema Modified On:05/01/2023 Status:confirmed D72.829 Leukocytosis Modified On:07/27/2023 Status:confirmed E27.49 Cortisol deficiency Modified On:10/17/2023 Status:confirmed N32.89 Bladder spasm Modified On:02/27/2024 Status:confirmed * Medical History: * Surgical History: h ysterectomy exp lap gallbladder removal appendectomy * Hospitalization/Major Diagno stic Procedure: N o Hospitalization History. * Family History: F ather: , unknown. M other: alive, partial colon resection, diagnosed with Diabetes. B rother(s): alive, Alpha 1 antitrypsin deficiency, diagnosed with Heart Disease, Diabetes. Sister(s): , colon cancer- at age 32. 4 brother(s) , 1 sister(s) . . * Social History: T obacco Use: T obacco Control (Standard) T obacco use: C urrent smoker W hen did you start smoking? 0 12/10/2020 H ow often do you smoke cigarettes? E very day H ow many cigarettes a day do you smoke? 6 -10 H ow soon after you wake up do you smoke your first cigarette? W ithin 5 minutes A re you interested in quitting? T hinking about quitting Tobacco Use/Smoking P atient is a f ormer smoker W hen did you start smoking? 0 06/12/2020 W hen did you stop smoking? 1 D rug/Alcohol: A ZEESHAN-C (Standard) D id you have a drink containing alcohol in the past year? N o P oints 0 I nterpretation N egative * Medications: T akingAlbuterol Sulfate (2.5 MG/3ML) 0.083% Nebulization Solution 3 mL as needed Inhalation every 6 hrs , Notes to Pharmacist: PRNDulera(Mometasone Furo- Formoterol Fum) 100-5 MCG/ACT Aerosol 2 puffs Inhalation Twice a day Hydrocortisone 10 MG Tablet 1 tablet Orally bid Levothyroxine Sodium 50 MCG Tablet TAKE 1 TABLET BY MOUTH ONCE DAILY IN THE MORNING ON AN EMPTY STOMACH Levsin/SL(Hyoscyamine Sulfate) 0.125 MG Tablet Sublingual 1 tablet under the tongue and allow to dissolve as needed Sublingual Three times a day , Notes to Pharmacist: PRNLisinopril 30 MG Tablet Take 1 tablet by mouth once daily Meloxicam 15 MG Tablet TAKE 1 TABLET BY MOUTH ONCE DAILY NEEDED Myrbetriq(Mirabegron ER) 25 MG Tablet Extended Release 24 Hour 1 tablet Orally Once a day Nebulizer Air Tube/Plugs - Miscellaneous Use with nebulizer daily , Notes to Pharmacist: PRNNebulizer Mask Adult(Respiratory Therapy Supplies) - Miscellaneous Use with nebulizer up to 4 times daily , Notes to Pharmacist: PRNPantoprazole Sodium 40 MG Tablet Delayed Release Take 1 tablet by mouth once daily Promethazine HCl 25 MG Tablet 1 tablet as needed Orally every 12 hrs , Notes to Pharmacist: PRNSimvastatin 20 MG Tablet TAKE 1 TABLET BY MOUTH ONCE DAILY IN THE EVENING tiZANidine HCl 4 MG Tablet 2 tabs Orally qhs Triamcinolone Acetonide 0.1 % Cream 1 application Externally Two times a Week , Notes to Pharmacist: PRNWellbutrin SR(buPROPion HCl ER (SR)) 200 MG Tablet Extended Release 12 Hour 1 tablet Orally BID Medication List reviewed and reconciled with the patientTaking Albuterol Sulfate (2.5 MG/3ML) 0.083% Nebulization Solution 3 mL as needed Inhalation every 6 hrs , Notes to Pharmacist: PRNTaking Dulera(Mometasone Furo-Formoterol Fum) 100-5 MCG/ACT Aerosol 2 puffs Inhalation Twice a day Taking Hydrocortisone 10 MG Tablet 1 tablet Orally bid Taking Levothyroxine Sodium 50 MCG Tablet TAKE 1 TABLET BY MOUTH ONCE DAILY IN THE MORNING ON AN EMPTY STOMACH Taking Levsin/SL(Hyoscyamine Sulfate) 0.125 MG Tablet Sublingual 1 tablet under the tongue and allow to dissolve as needed Sublingual Three times a day , Notes to Pharmacist: PRNTaking Lisinopril 30 MG Tablet Take 1 tablet by mouth once daily Taking Meloxicam 15 MG Tablet TAKE 1 TABLET BY MOUTH ONCE DAILY NEEDED Taking Myrbetriq(Mirabegron ER) 25 MG Tablet Extended Release 24 Hour 1 tablet Orally Once a day Taking Nebulizer Air Tube/Plugs - Miscellaneous Use with nebulizer daily , Notes to Pharmacist: PRNTaking Nebulizer Mask Adult(Respiratory Therapy Supplies) - Miscellaneous Use with nebulizer up to 4 times daily , Notes to Pharmacist: PRNTaking Pantoprazole Sodium 40 MG Tablet Delayed Release Take 1 tablet by mouth once daily Taking Promethazine HCl 25 MG Tablet 1 tablet as needed Orally every 12 hrs , Notes to Pharmacist: PRNTaking Simvastatin 20 MG Tablet TAKE 1 TABLET BY MOUTH ONCE DAILY IN THE EVENING Taking tiZANidine HCl 4 MG Tablet 2 tabs Orally qhs Taking Triamcinolone Acetonide 0.1 % Cream 1 application Externally Two times a Week , Notes to Pharmacist: PRNTaking Wellbutrin SR(buPROPion HCl ER (SR)) 200 MG Tablet Extended Release 12 Hour 1 tablet Orally BID Medication List reviewed and reconciled with the patient * Allergies: E ffexor: dizzy, vomitingGelsyn-3: swelling and painno[Allergies Verified] Objective: * Vitals: W t:304lbs, Ht: 63 in, BP:124/74mm Hg, BMI:53.85Index, Ht-cm: 160.02 cm, Wt-k.89 kg. * Examination: P hysical Exam: GENERAL: w ell developed, well nourished, in no acute distress. HEAD: n ormocephalic/atraumatic. EYES: p upils equal, round and reactive to light, conjunctivae and sclerae normal. EARS: n o deformity or lesion of external ear, canals and TM appear normal bilaterally, TM's intact, not inflamed with normal light reflex, hearing grossly normal to conversational speech. NOSE: n o deformity, discharge, inflammation, or lesions.? MOUTH: m ucous membranes moist, normal oropharynx and posterior pharynx without lesions or exudates, tongue normal, dentition normal. NECK: n whitney supple, no masses or palpable cervical nodes, trachea midline, thyroid without nodules, masses, tenderness, or enlargement. CHEST: n o chest wall deformity, no chest wall tenderness.? LUNGS: n ormal respiratory effort and clear to auscultation, no wheezes, rales, or rhonchi, good air exchange. CARDIO: r egular rate and rhythm, normal S1 and S2, nor murmur, rub, or gallop. PULSES: n ormal capillary refill. ABDOMEN: s oft, non-distended, non-tender, no masses. MUSCULOSKELETAL: n o deformity or scoliosis noted, normal range of motion, joints normal, no erythema, edema, effusion, or ecchymosis. EXTREMITY: n o clubbing, cyanosis, edema, or deformity with normal ROM in both upper and lower bilateral extremities. NEUROLOGIC: g rossly normal. SKIN: n o rashes, ulcerations, or suspicious lesions. LYMPH NODES: n o cervical adenopathy, nodes normal. MENTAL STATUS: a lert and oriented x3, normal mood and affect. Assessment: * Assessment: 1. W ell adult - Z00.00 (Primary) Plan: * Treatment: * Procedure Codes: * Preventive Medicine: Screenings/Counseling: B [place] ACTION PLAN Above Normal BMI Follow-up D ietary management education, guidance, and counseling * * Sign off status: Completed Visit Status: C HK (Check Out) true * Provider: Paola Carranza ([facility])MD Date: 0 03/10/2025 Generated for Reni devorah/Milagro/eTransmitting on: 1 02:47 PM EDT History and Physical Notes * HPI (History of Present Illness) Category Sub-Category Detail Notes Category Not es General feeshakey - diff walking due to pain chang into R leg R shoulder also with pain Examination Category Sub-Category Detail Notes Category Not es Physical Exam GENERAL: well developed, well nourished, in no acute distress HEAD: normocephalic/atraum atic EYES: pupils equal, round and reactive to light, conjunctivae and sclerae normal EARS: no deformity or lesi on of external ear, canals and TM appear normal bilaterally, TM's intact, not inflamed with normal light reflex, hearing grossly normal to conversational speech NOSE: no deformity, discha rge, inflammation, or lesions MOUTH: mucous membranes sweta st, normal oropharynx and posterior pharynx without lesions or exudates, tongue normal, dentition normal NECK: neck supple, no mass es or palpable cervical nodes, trachea midline, thyroid without nodules, masses, tenderness, or enlargement CHEST: no chest wall deform ity, no chest wall tenderness LUNGS: normal respiratory e ffort and clear to auscultation, no wheezes, rales, or rhonchi, good air exchange CARDIO: regular rate and rhy thm, normal S1 and S2, nor murmur, rub, or gallop PULSES: normal capillary ref ill ABDOMEN: soft, non-distended, non-tender, no masses RECTAL: MUSCULOSKELETAL: no deformity or scol iosis noted, normal range of motion, joints normal, no erythema, edema, effusion, or ecchymosis EXTREMITY: no clubbing, cyanosi s, edema, or deformity with normal ROM in both upper and lower bilateral extremities NEUROLOGIC: grossly normal SKIN: no rashes, ulceratio ns, or suspicious lesions LYMPH NODES: no cervical adenopat hy, nodes normal MENTAL STATUS: alert and oriented x 3, normal mood and affect
--- OUTSIDE RECORDS SUMMARY | 2025-03-18 14:48 | XMS_ITS | Patient Health Record ---
Author Organization The [facility] in [place] Address [address] [place] [address] Care Team Providers Care Sap Developer Name Role Phone Srinath Carranza Primary Care Provider [phone] Renetta Alejandre Unavailable [phone] Allergies Allergen (clinical drug ingredient) Drug/Non Drug Allergy documented on EMR Reaction Allergy Type Onset Date Status Effexor dizzy, vomiting Drug Allergy A ctive hyaluronate Gelsyn-3 swelling and pain Drug Allergy Active Results Component Value Reference Range Notes CT abdomen pelvis w con (Not yet reviewed by provider) Interpretation: Performing Lab: Notes/Report: Source Facility: [place] [address] CT Scan Report Signed Patient: SYLVIE ALTAMIRANO MR#: [id number] : 1970 Acct:[id number] Age/Sex: 54 / F ADM Date: 08/27/24 Loc: RAD Attending Dr: Renetta Alejandre M.D. Ordering Physician: Renetta Alejandre M.D. Date of Service: 08/27/24 Procedure(s): CT abdomen pelvis w con Accession Number(s): [id number] cc: Juan Carranza M.D. [place] [id number] Patient Name: SYLVIE ALTAMIRANO MRN: [id number] date: 1970 Sex: F Assigned Patient Location: RAD Current Patient Location: RAD Accession/Order Number: [id number] Exam Date: 08/27/2024 11:04 Report Date: 08/27/2024 11:07 At the request of: RENETTA ALEJANDRE MD Procedure: CT abdomen pelvis w con CT ABDOMEN AND PELVIS WITH INTRAVENOUS CONTRAST: CLINICAL HISTORY: Abdominal cramping and diarrhea weight gain. COMPARISON: CT abdomen and pelvis 06/22/2023 TECHNIQUE: Spiral images were obtained through the abdomen and pelvis following the administration of intravenous contrast. This CT exam was performed using one or more following dose reduction techniques: Automated exposure control, adjustment of the mA and/or kV according to patient size, or use of iterative reconstruction technique. FINDINGS: Lung Bases: [Minimal atelectasis/scarring.] Organs:Hepatic steatosis with hepatomegaly. Gallbladder has been removed. Splenomegaly measuring 14.5 cm. Portal vein pancreas and adrenal glands appear unremarkable. No enhancing renal mass or hydronephrosis. Cyst left kidney. Aorta appears normal in caliber.[ GI: Small hiatal hernia. Distal stomach is grossly unremarkable. Small bowel appears nondilated. No acute colonic abnormality.[ Pelvis:[Uterus has been removed. No adnexal mass. Urinary bladder is grossly unremarkable.] Peritoneum/Retroperitoneum:No free air or free fluid or lymphadenopathy.[ Abd wall/Bones:Abdominal wall demonstrate no acute findings. Osseous structures demonstrates degenerative change.[ CT/CT abdomen pelvis w con IMPRESSION: No acute process. Hepatosplenomegaly. Small hiatal hernia. Impression dictated by: Twin Durant Jr., D.O.08/27/2024 11:07 AM Dictation Location: [place] [address] Electronically authenticated by: [id number] Y Date: 08/27/2024 11:07 Dictated By: Twin Durant M.D. 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5-60.0 % Monocytes Percent Auto 5.8 1.7-12.0 % Eosinophils Percent Auto 1.0 0.9-7.0 % Basophils Percent Auto 0.5 0.2-2.0 % Immature Granulocytes Pct Auto 1.5 0.0-0.5 % Neutrophils Absolute Auto 13.9 1.4-6.5 10 3/uL Lymphocytes Absolute Auto 2.7 1.2-3.8 10 3/uL Monocytes Absolute Auto 1.1 0.3-0.8 10 3/uL Eosinophils Absolute Auto 0.2 0.0-0.7 10 3/uL Basophils Absolute Auto 0.1 0.0-0.1 10 3/uL Immature Granulocytes Abs Auto 0.28 0.00-0.03 10 3/uL Performing Lab: see note ML - [facility] LB Erythrocyte Sedimentation Ra te (Not yet reviewed by provider) Interpretation: Performing Lab: Notes/Report: [facility] , Erythrocyte Sedimentation Rate 68 <=30 mm/hr Performing Lab: see note ML - [facility] LB TSH (Not yet reviewed by pro vider) Interpretation: Performing Lab: Notes/Report: [facility] , Thyroid Stimulating Hormone 1.566 0.358-3.740 u IU/mL Performing Lab: see note ML - [facility] LB PROF 14(COMP METB) (Not yet reviewed by provider) Interpretation: Performing Lab: Notes/Report: [facility] , Sodium 136 136-145 mmol/L Potassium 4.2 3.5-5.1 mmol/L Chloride 101 98-107 mmol/L Carbon Dioxide 31.6 21.0-32.0 mmol/L Anion Gap 7.6 Glucose 125 74-106 mg/dL Blood Urea Nitrogen 16.0 7.0-18.0 mg/dL Creatinine 0.95 0.55-1.02 mg/dL Estimated GFR ( Ban >60 >=60 mL/mi n/1.73m 2 Estimated GFR (Non- Natalia >60 >=60 mL/mi n/1.73m 2 BUN Creatinine Ratio 16.8 Calcium 9.5 8.5-10.1 mg/dL Bilirubin Total 0.3 0.2-1.0 mg/dL Aspartate Amino Transferase 13 15-37 U/L Alanine Aminotransferase 29 14-59 U/L Alkaline Phosphatase 121 46-116 U/L Total Protein 7.1 6.4-8.2 g/dL Albumin Level 3.1 3.4-5.0 g/dL Globulin 4.0 Albumin Globulin Ratio 0.8 Performing Lab: see note ML - [facility] LB LDH (Not yet reviewed by pro vider) Interpretation: Performing Lab: Notes/Report: [facility] , Lactate Dehydrogenase 153 81-234 U/L Performing Lab: see note - [facility] LB FREE T4 (Not yet reviewed by provider) Interpretation: Performing Lab: Notes/Report: [facility] , Free T4 1.32 0.76-1.46 ng/dL Performing Lab: see note ML - [facility] LB CRP (Not yet reviewed by pro vider) Interpretation: Performing Lab: Notes/Report: [facility] , C Reactive Protein 3.08 <=0.50 mg/dL Performing Lab: see note ML - [facility] LB Reason For Referral No Information Medications Medication SIG (Take, Route, Frequency, Duration) Notes Start Date End Date Status Lisinopril 30 MG Take 1 tablet by solo th once daily; Duration: 30 Active Myrbetriq 25 MG 1 tablet Orally Once a day; Duration: 30 days 02/27/2024 Active Nebulizer Air Tube/Plugs - Use with nebu lizer daily; Duration: 90 days PRN 10/28/2022 Active Nebulizer Mask Adult - Use with nebulize r up to 4 times daily; Duration: 90 days PRN 10/28/2022 Active Daypro 600 MG 2 tablets Orally roberto ly; Duration: 20 days 03/10/2025 Active Pantoprazole Sodium 40 MG Take 1 tablet by mouth once daily; Duration: 30 Active Albuterol Sulfate (2.5 MG/3ML) 0.083% 3 mL as needed Inhalation every 6 hrs; Duration: 30 days PRN 10/28/2022 Active Promethazine HCl 25 MG 1 tablet as neede d Orally every 12 hrs; Duration: 30 day(s) PRN Active Dulera 100-5 MCG/ACT 2 puffs Inhalation Twice a day Active Simvastatin 20 MG TAKE 1 TABLET BY SOLO TH ONCE DAILY IN THE EVENING; Duration: 30 Active Hydrocortisone 10 MG 1 tablet Orally bid ; Duration: 30 days 11/23/2023 Active tiZANidine HCl 4 MG 2 tabs Orally qhs; Duration: 30 days 08/27/2024 Active Levothyroxine Sodium 50 MCG TAKE 1 TABLE T BY MOUTH ONCE DAILY IN THE MORNING ON AN EMPTY STOMACH; Duration: 30 Active Triamcinolone Acetonide 0.1 % 1 application Externally Two times a Week PRN Active Levsin/SL 0.125 MG 1 tablet under the tongue and allow to dissolve as needed Sublingual Three times a day PRN Active Wellbutrin SR 200 MG 1 tablet Orally BID ; Duration: 30 days 02/09/2023 Active Immunizations Vaccine Route Administration Date Status Comme nts PPD Test ID Intradermal 12/06/2022 Administered Td, Adult, preservative free ID Intradermal 12/06/2022 Adm inistered Social History Tobacco Use: Social History Observation Description Date Details (start date - stop date) Current Smoker 12/10/2020 - NA Tobacco Use/Smoking Question Answer Notes Patient is a former smoker When did you start smoking? 06/12/2020 When did you stop smoking? 03/12/2023 Alcohol Screen (Audit-C) Question Answer Notes Did you have a drink contain ing alcohol in the past year? Yes How many drinks did you have on a typical day when you were drinking in the past year? 1 or 2 drinks (0 point) How often did you have a dri nk containing alcohol in the past year? Monthly (2 points) Points 2 Interpretation Negative Tobacco Control (Standard) Question Answer Notes Tobacco [...] ast year? No Points 0 Interpretation Negative Problems Problem Type SNOMED Code ICD Code Onset Dates Problem Status W/U Status Risk Notes Problem Essential hypertensi on (53217690) Essential (primary) hypertension (I10) Active confirmed Problem Gastro-esophageal reflux disease without esophagitis (300109870) Gastro-esophagea l reflux disease without esophagitis (K21.9) Active confirmed Problem Post-traumatic stres s disorder (18849334) Post-traumatic stress disorder, unspecified (F43.10) Active confirmed Problem Osteoarthritis of kn ee (088027857) Bilateral primary osteoarthritis of knee (M17.0) Active confirmed Problem Lumbar radiculopathy (516539282) Radiculopathy, lumbar region (M54.16) Active confirmed Problem Anxiety (43682896) Anxiety (F41.9) Active confi rmed Problem Edema (24630252) Edema (R60.9) Active confirmed Problem Depression (893414289) Depressio n (F32.9) Active confirmed Problem Malignant neoplasm o f colon (662371218) Malignant neoplasm of colon, unspecified (C18.9) Active confirmed Problem Well adult (980114782) Well adul t (Z00.00) Active confirmed Problem Leukocytosis (713464247) Leukocytosis (D72.829) Active confirmed Problem Bladder spasm (410552982) Bladder spasm (N32.89) Active confirmed Problem Sleep apnea (37054302) Sleep spray operator ea, unspecified type (G47.30) Active confirmed Problem Gastritis medicamentosa (78243551) Gastritis medicamentosa (K29.60) Active confirmed Problem Irritable bowel syndrome (93840499) Irritable bowel syndrome, unspecified type (K58.9) Active confirmed Problem Pure hypercholesterolemia (215822803) Pure hypercholesterol emia, unspecified (E78.00) Active confirmed Problem Obesity (474493972) Obesity, unspecified classification, unspecified obesity type, unspecified whether serious comorbidity present (E66.9) Active confirmed Problem Adrenal cortical hypofunction (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) Cortisol deficiency (E27.49) Active confirmed Problem Meniere disease (07025250) Meniere's disease, unspecified laterality (H81.09) Active confirmed Vital Signs Blood pressure diastolic 74 mm Hg 03/10/2025 Height 63 in 03/10/2025 Blood pressure systolic 124 mm Hg 03/10/2025 Weight 304 lbs 03/10/2025 BMI 53.85 kg/m2 03/10/2025 Encounters Encounter Location Date Provider Diagnosis [facility] [address] [place] [address] [facility] [address] [place] [address] 04/23/2024 Srinath Carranza Bilateral primary osteoarthritis of knee M17.0 [facility] [address] [facility] [place] [address] 06/06/2024 Srinath Carranza [facility] [address] [facility] [place] [address] 06/25/[address] [facility] [address] [facility] [place] [address] 08/27/2024 Srinath Carranza Bilateral primary osteoarthritis of knee M17.0 [facility] [address] [place] [address] 10/22/2024 [facility] [address] [facility] [place] [address] 12/26/2024 Srinath Carrnaza [facility] [address] [facility] [place] [address] 02/24/[address] [facility] [address] [facility] [place] [address] 03/10/2025 Srinath Carranza Well adult Z00.00 Assessments Encounter Date Diagnosis (ICD Code) Assessment Notes Treatment Notes Treatment Clinical Notes Section Notes 08/27/2024 Bilateral primary osteoarthritis of knee (ICD-10 - M17.0) 03/10/2025 Well adult (ICD-10 - Z00.00) 04/23/2024 Bilateral primary osteoarthritis of knee (ICD-10 - M17.0) Plan Of Treatment Pending Test Test Name Order Date CMP (COMPLETE METABOLIC PANEL) 3 CMP (COMPLETE METABOLIC PANEL) 4 HEMOGLOBIN A1C (GLYCO) 03/01/2023 HEMOGLOBIN A1C (GLYCO) 03/10/2025 IRON, TOTAL 03/10/2025 IRON, TOTAL 03/01/2023 LIPID PANEL (CHOL/TRIG/HDL/LDL) 03/01/20 23 LIPID PANEL (CHOL/TRIG/HDL/LDL) 03/10/20 25 CBC WITH DIFF 03/01/2023 VITAMIN D, 25 LEVEL (TOTAL) 03/01/2023 US Lower Extremity LT 05/01/2023 US Lower Extremity RT 05/01/2023 T3 FREE, T4 FREE and TSH 07/27/2023 ACTH 07/27/2023 ASO 03/01/2023 RHEUMATOID PANEL 03/10/2025 Insulin Level 03/10/2025 Insulin Level 03/01/2023 PT - INR 03/01/2023 ANTISTREPTOLYSIN O AB (ASO) 03/05/2023 CBC AUTO DIFF 03/05/2023 CBC AUTO DIFF 02/27/2024 CBC AUTO DIFF 10/22/2024 CORTISOL 07/27/2023 CRP 02/27/2024 CRP 10/22/2024 CULTURE BLOOD 03/01/2023 FREE T4 10/22/2024 LDH 10/22/2024 LDH 02/27/2024 LIPID PROFILE 02/27/2024 LIPID PROFILE 03/05/2023 LIPID PROFILE 02/27/2024 LIVER PROFILE 03/05/2023 PROF 14(COMP METB) 02/27/2024 PROF 14(COMP METB) 10/22/2024 SED RATE WESTERGREN 03/10/2025 THYROID PROFILE WITH TSH 03/05/2023 THYROID PROFILE WITH TSH 02/27/2024 THYROID PROFILE WITH TSH 10/15/2023 TSH 02/27/2024 TSH 10/22/2024 VIT B12 AND FOLATE 10/11/2023 XR KNEE LT 3V 11/23/2023 XR KNEE RT 3V 11/23/2023 XR LSPINE 2_3 VIEWS 11/23/2023 THYROID PANEL (T4/TSH/FREE T3) 3 THYROID PANEL (T4/TSH/FREE T3) 5 MM screening mammo BI 03/10/2025 Erythrocyte Sedimentation Rate [address]rocyte Sed[address] Rate 5 CT abdomen pelvis w con 08/27/2024 Vitamin D 10/11/2023 CMP (COMP MET [place]) w/eGFR CKD-EPI 2024 CBC WITH DIFF 03/10/2025 Next Appt Details Provider Name:Renetta Alejandre , 04/22/2025 02:15:00 PM, [address] [place], [address], Insurance Providers Payer Name Payer Address Payer Phone Subscriber Number Group Number Insured Name Patient Relationship to Insured Coverage Start Date Coverage End Date [employer] [place] [employer] [address] [place] [address] [id number] [employer] Sylvie Altamirano Self - patient is the insured 3 Medications Administered Medication Instructions Date of Administration Dosage Notes DEPO-Medrol 04/27/2023 60 mg 120 Gelsyn-3 04/27/2023 33.6 mg Kenalog 02/09/2023 120 mg 120 Kenalog-40 10/07/2022 120 mg 120 Kenalog-40 10/11/2022 160 mg with 1cc lidoc sisi with EPI in each knee Kenalog-40 12/06/2022 120 mg 120 Kenalog-40 01/02/2023 160 mg 80mg with 1cc lidocaine per knee Kenalog-40 03/01/2023 120 mg Kenalog-40 05/01/2023 80 mg 80 Kenalog-40 07/27/2023 120 mg 120 Kenalog-40 11/23/2023 160 mg 80mg with 1 cc lidocaine in each knee Kenalog-40 02/27/2024 120 mg Ketorolac Tromethamine 10/07/2022 60 mg 60 Ketorolac Tromethamine 12/06/2022 60 mg 60 Ketorolac Tromethamine 02/09/2023 60 mg 60 Ketorolac Tromethamine 03/01/2023 60 mg Ketorolac Tromethamine 03/27/2023 60 mg 60 Ketorolac Tromethamine 04/27/2023 60 mg 60 Ketorolac Tromethamine 07/27/2023 60 mg 60 Ketorolac Tromethamine 11/23/2023 60 mg 60 Ketorolac Tromethamine 02/27/2024 60 mg Ketorolac Tromethamine 08/27/2024 60 mg Lidocaine HCl 08/27/2024 2 mL Norflex 02/09/2023 60 mg 60 Orphenadrine Citrate 10/07/2022 60 mg 60 Orphenadrine Citrate 12/06/2022 60 mg 60 Orphenadrine Citrate 03/01/2023 60 mg Orphenadrine Citrate 03/27/2023 60 mg 60 Orphenadrine Citrate 04/27/2023 60 mg 60 Orphenadrine Citrate 07/27/2023 60 mg 60 Orphenadrine Citrate 11/23/2023 60 mg 60 Triamcinolone 40 mg/ml 08/27/2024 160 mg wi th 1 cc lidocaine each Medical (General) History Medical History History ICD Code Tubular adenoma of colon D12.6 Palpitations R00.2 Radiculopathy, lumbar region M54.16 Arthralgia, unspecified joint M25.50 Encounter for general adult medical exam ination without abnormal findings Z00.00 Overweight E66.3 COVID-19 U07.1 Streptococcal pharyngitis J02.0 Post-traumatic stress disorder, unspecif ied F43.10 Cough, unspecified type R05.9 Pleurisy R09.1 Other injury of unspecified body region, initial encounter T14.8XXA Dyshidrotic eczema L30.1 Shoulder pain, unspecified chronicity, u nspecified laterality M25.519 Hemorrhoids, unspecified hemorrhoid type K64.9 Lymphadenopathy R59.1 Abdominal pain, left lower quadrant R10. 32 Back pain M54.9 Gastro-esophageal reflux disease without esophagitis K21.9 Obesity, unspecified classif ication, unspecified obesity type, unspecified whether serious comorbidity present E66.9 Irritable bowel syndrome, unspecified ty pe K58.9 Menieres disease, unspecified laterality H81.09 Depression F32.9 Malignant neoplasm of colon, unspecified C18.9 Anxiety F41.9 Sinusitis J32.9 Gastritis K29.70 Acquired absence of female genital organ Z90.79 Gastritis medicamentosa K29.60 Bronchitis J40 Sleep apnea, unspecified type G47.30 Nevus D22.9 Surgical History Surgery Date(Month/Year) exp lap appendectomy gallbladder removal hysterectomy
--- OUTSIDE RECORDS SUMMARY | 2025-03-18 14:48 | XMS_ITS | Clinical Summary ---
Author Organization 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 Name Role Phone Unavailable Primary Care Provider Unavailabl e Allergies Active Allergy Reactions Criticality Noted Date Comments Venlafaxine GI intolerance Medium 09/04/2024 Sodium Hyaluronate Swelling Medium 09/04/2024 Patchy swelling skin Medications albuterol (2.5 MG/3ML) 0.083% nebulizer solution Take by nebulization every 6 (six) hours if needed for wheezing Active ascorbic acid (Vitamin C) 500 MG ER capsule Take 500 mg by mouth Daily Active Biotin 1000 MCG chewable tablet Chew Acti ve buPROPion SR (Wellbutrin SR) 200 MG 12 hr tablet Take by mouth 2 (two) times a day Do not crush, chew, or split. Active cholecalciferol (Vitamin D-3) 25 MCG tablet Take 25 mcg by mouth Daily Active hyoscyamine (Anaspaz,Levsin ) 0.125 MG tablet Take 0.125 mg by mouth every 4 (four) hours if needed for cramping Active levothyroxine (Synthroid, Levoxyl) 50 MCG tablet Take 50 mcg by mouth in the morning. Take before meals. Active lisinopril 30 MG tablet Take 30 mg by mouth Daily Active meloxicam (Mobic) 15 MG tablet Take by mouth Active pantoprazole (ProtoNix) 40 MG EC tablet Take 40 mg by mouth in the morning. Take before meals. Do not crush, chew, or split.. Active promethazine (Phenergan) 25 MG tablet Take by mouth Active simvastatin (Zocor) 20 MG tablet Take 20 mg by mouth at bedtime Active Family History Medical History Relation Name Comments No Known Problems Father Diabetes Mother Relation Name Status Comments Father Mother Social History Tobacco Use Types Packs/Day Years Used Date Smoking Tobacco: Former Cigarettes Tobacco Cessation:Counseling Given: Not Answered Comments:Former Smoker 07/18/23 Alcohol Use Standard Drinks/Week Comments Yes 0 (1 standard drink = 0.6 oz pur e alcohol) RARE Comments Unknown Sex and Gender Information Value Date Recorded Sex Assigned at Not on file Legal Sex Female 12:59 PM EDT Gender Identity Not on file Sexual Orientation Not on file Last Filed Vital Signs Vital Sign Reading Time Taken Comments Blood Pressure 118/78 07/25/2023 10:50 AM EST Pulse 99 07/25/2023 10:50 AM EST Temperature - - Respiratory Rate 20 07/25/2023 10:50 AM EST Oxygen Saturation - - Inhaled Oxygen Concentration - - Weight 134 kg (295 lb) 07/25/2023 10:50 AM EST Height 160 cm (5' 3 ) 07/25/2023 10:50 AM EST Body Mass Index 52.26 07/25/2023 10:50 AM EST Plan of Treatment Not on file
--- NOTE | 2025-03-18 15:08 | MM_ITS ---
Patient Name: SYLVIE ALTAMIRANO MR#: [id number] : 1970 Exam Date: 03/18/2025 Ordering Doctor: DR ELEUTERIO KRAFT . RADIOLOGY REPORT PROCEDURE: MM TOMOSYNTHESIS SCREENING BI COMPARISON: MG MAMM SCREEN 3D CESAR CAD, 04/15/2022. INDICATIONS: Screening Calculator Name NCI Breast Cancer Risk Assessment Tool 5 Year Breast Cancer Risk 0.90% Lifetime Breast Cancer Risk 6.80% Personal Breast Cancer No Personal Ovarian Cancer No Treatments None Family Cancers Sister with colon cancer at age 34. LOCATION: [facility] BREAST COMPOSITION: The breasts are almost entirely fatty. FINDINGS: DIAGNOSTIC CATEGORY 1--NEGATIVE. RIGHT BREAST: No significant suspicious finding. LEFT BREAST: No significant suspicious finding. RECOMMENDATIONS: ROUTINE MAMMOGRAM AND CLINICAL EVALUATION IN 12 MONTHS. Dictated by: Twin Durant DO on 03/18/2025 at 16:18 Approved by: Twin Durant DO on 03/18/2025 at 16:19
--- OUTSIDE RECORDS SUMMARY | 2025-03-18 15:13 | XMS_ITS | CCD ---
Author Organization [facility] Care Team Providers Care Shoes Salesperson Name Role Phone Eleuterio Carranza Primary Care Physician [phone] HOY ., DR MCCLELLAN Primary Care Unavailable [...] Unavailable HOY ., DR MCCLELLAN Attending Unavailable GLEN, DR MOISE Diaz Consulting Unavailable NILL, Nica Odonnell Attending Unavailable Eleuterio Carranza Referring Unavailable Allergies Allergy Classification Reported Allergen(s) Allergy Type Date of Onset Reaction(s) Facility (3 sources) venlafaxine; Translations: [venlafaxine] Drug Allergy Dizziness (finding) General Surgery [place] (1 source) venlafaxine Drug Allergy The Repository Medications Current Medications Medication Drug Class(es) Dates Sig (Normalized) Sig (Original) acetaminophen 325 mg / HYDROcodone bitartrate 5 mg oral tablet (2 sources) Opioid Agonist Start: 03-06-2017 Mobile 325 mg-5 mg oral tablet See Instructions, [...] BID, # 20 tab(s), Refills(s) 0, Pharmacy: [facility] 1984 Start Date: 07/27/18 Status: Ordered [...] 04-01-20 Chronic Other aftercare (1 source) 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 Normal [facility] XR CHEST 1 Von 10-26-2022 XR [...] PILO ELIAS Date: 2022-10-26 19:03 Normal The CULTURE BLOODon 09-30-2022 Microscopic examination of blood, culture Culture Observations: NO GROWTH AT 5 DAYS. Normal The Comment on above: Performed By: #### T 7, TSH, LIPID, CMP #### Laboratory [address] [address] [address] Sona Cruz Microscopic examination of blood, culture Culture Observations: NO GROWTH AT 5 DAYS. Normal The Comment on above: Performed By: #### T 7, TSH, LIPID, CMP #### Laboratory [address] [place], [place] [address] Dr. Sona Cruz CULTURE URINEon 09-30-2022 CULTURE URINE Culture Observations: NO GROWTH. Normal The Comment on above: Performed By: #### T 7, TSH, LIPID, CMP #### Laboratory [address] [place], [place] [address] Dr. Sona Cruz UA RANDOM W/MICROSCOPICon BACTERIA NONE SEEN Normal NONE SEEN The Comment on above: Performed By: #### T 7, TSH, LIPID, CMP #### Laboratory [address] [address] [address] Sona Cruz Bilirubin Ql (U) Negative Normal NEGATIVE The [facility] Comment on above: Performed By: #### T 7, TSH, LIPID, CMP #### Laboratory [address] [place] [address] Dr. Sona Cruz CAST NONE SEEN Normal NONE SEEN The Comment on above: Performed By: #### T 7, TSH, LIPID, CMP #### Laboratory [address] [place] [address] Dr. Sona Cruz Clarity (U) CLEAR Normal CLEAR The Comment on above: Performed By: #### T 7, TSH, LIPID, CMP #### Laboratory [address] [place] [address] Dr. Sona Cruz Color (U) LT. YELLOW Normal YELLOW The Comment on above: Performed By: #### T 7, TSH, LIPID, CMP #### Laboratory [address] [place] [address] Dr. Sona Cruz Crystals LM Nom (Urine sed) SEEN Abnormal NONE SEEN The Comment on above: Performed By: #### T 7, TSH, LIPID, CMP #### Laboratory [address] [place] [address] Dr. Sona Cruz Epithelial cells LM Ql (Urine sed) FEW Abnormal NONE SEEN /RARE The Comment on above: Performed By: #### T 7, TSH, LIPID, CMP #### Laboratory [address] [place] [address] Dr. Sona Cruz Glucose Ql (U) Negative Normal NEGATIVE [facility] Comment on above: Performed By: #### T 7, TSH, LIPID, CMP #### Laboratory [address] [place] [address] Dr. Sona Cruz Hemoglobin Ql (U) Negative Normal NEGATIVE The [facility] Comment on above: Performed By: #### T 7, TSH, LIPID, CMP #### Laboratory [address] [place] [address] Dr. Sona Cruz Ketones Ql (U) Negative Normal NEGATIVE [facility] Comment on above: Performed By: #### T 7, TSH, LIPID, CMP #### Laboratory [address] [address] [address] Sona Cruz LEUKOCYTES Negative Normal NEGATIVE [facility] Comment on above: Performed By: #### T 7, TSH, LIPID, CMP #### Laboratory [address] [address] [address] Sona Cruz MUCOUS NONE SEEN Normal NONE SEEN [facility] Comment on above: Performed By: #### T 7, TSH, LIPID, CMP #### Laboratory [address] [address] [address] Sona Cruz Nitrite Ql (U) Negative Normal NEGATIVE [facility] Comment on above: Performed By: #### T 7, TSH, LIPID, CMP #### Laboratory [address] [place] [address] Dr. Sona Cruz pH (U) 5.5 [pH] Normal 5-9 [facility] Comment on above: Performed By: #### T 7, TSH, LIPID, CMP #### Laboratory [address] [place] [address] Dr. Sona Cruz RBC 0-2 Normal 0-2 [facility] Comment on above: Performed By: #### T 7, TSH, LIPID, CMP #### Laboratory [address] [address] [address] Sona Cruz SPEC GRAVITY 1.025 Normal 1.005-<=1.[address] [facility] Comment on above: Performed By: #### T 7, TSH, LIPID, CMP #### Laboratory [address] [address] [address] Sona Cruz UA PROTEIN Negative Normal NEGATIVE/ TRACE The Comment on above: Performed By: #### T 7, TSH, LIPID, CMP #### Laboratory [address] [place] [address] Dr. Sona Cruz Urobilinogen Qn (U) 0.2 {Dayanna'U}/dL Normal 0.2 - 1. 0 The Comment on above: Performed By: #### T 7, TSH, LIPID, CMP #### Laboratory [address] [place] [address] Dr. Sona Cruz WBC 0-2 Abnormal NONE SEEN The Comment on above: Performed By: #### T 7, TSH, LIPID, CMP #### Laboratory [address] [address] [address] Sona Cruz VITAMIN B12on 09-30-2022 Cobalamin (Vitamin B12) [Mass/Vol] 383.0 pg/mL Normal 193.0-986.0 [facility] Comment on above: Performed By: #### V ITB12 #### Laboratory [address] [place] [address] Dr. Sona Cruz DANIELLE-GARCIA VIRUS (EBV) AB PROFILEon 08-15-2022 EBV Ab VCA, IgG 71.8 U/mL Critically high 0.0-17.9 [facility] Comment on above: Result Comment: Nega tive <18.0 Equivocal 18.0 - 21.9 Positive >21.9 Performed By: #### T 7, TSH, LIPID, CMP #### Laboratory [address] [place] [address] Dr. Sona Cruz EBV Ab VCA, IgM <36.0 Normal 0.0-35.[address] [facility] Comment on above: Result Comment: Nega tive <36.0 Equivocal 36.0 - 43.9 Positive >43.9 Performed By: #### T 7, TSH, LIPID, CMP #### Laboratory [address] [place] [address] Dr. Sona Cruz EBV Nuclear Antigen Ab, IgG 146.0 U/mL Critically high 0.0-17.9 The Comment on above: Result Comment: Nega tive <18.0 Equivocal 18.0 - 21.9 Positive >21.9 Performed By: #### T 7, TSH, LIPID, CMP #### Laboratory [address] [place] [address] Dr. Sona Cruz Interpretation: Comment Normal [facility] Comment on above: Result Comment: EBV [...] #### T 7, TSH, LIPID, CMP #### Laboratory [address] [place] [address] Dr. Sona Cruz INSULINon 08-13-2022 Insulin 18.5 uIU/mL Normal 2.6-24.9 The Comment on above: Performed By: #### T 7, TSH, LIPID, CMP #### Laboratory [address] [place] [address] Dr. Sona Cruz CBC AUTO DIFFon 08-12-2022 BASO # 0.1 103/ul Normal 0.0-0.1 [facility] Comment on above: Performed By: #### T 7, TSH, LIPID, CMP #### Laboratory [address] [address] [address] Sona Cruz Basophils/100 WBC (Bld) 0.5 % Normal 0.2-2.0 [facility] Comment on above: Performed By: #### T 7, TSH, LIPID, CMP #### Laboratory [address] [address] [address] Sona Cruz EO # 0.1 103/ul Normal 0.0-0.7 [facility] Comment on above: Performed By: #### T 7, TSH, LIPID, CMP #### Laboratory [address] [place] [address] Dr. Sona Cruz Eosinophils/100 WBC (Bld) 0.9 % Normal 0.9-7.0 [facility] Comment on above: Performed By: #### T 7, TSH, LIPID, CMP #### Laboratory [address] [place] [address] Dr. Sona Cruz Erythrocyte distribution width (RBC) [Ratio] 14.4 % Normal 11.0-15.0 [facility] Comment on above: Performed By: #### T 7, TSH, LIPID, CMP #### Laboratory [address] [place] [address] Dr. Sona Cruz Hematocrit (Bld) [Volume fraction] 41.8 % Normal 36.0-48.0 [facility] Comment on above: Performed By: #### T 7, TSH, LIPID, CMP #### Laboratory [address] [place] [address] Dr. Sona Cruz Hemoglobin (Bld) [Mass/Vol] 14.0 g/dL Normal 12.0-16.0 [facility] Comment on above: Performed By: #### T 7, TSH, LIPID, CMP #### Laboratory [address] [place] [address] Dr. Sona Cruz IG # 0.12 10e3/ul Critically high 0.00-0.03 [facility] Comment on above: Performed By: #### T 7, TSH, LIPID, CMP #### Laboratory [address] [place] [address] Dr. Sona Cruz IG % 1.0 % Critically high 0.0-0.5 [facility] Comment on above: Performed By: #### T 7, TSH, LIPID, CMP #### Laboratory [address] [place] [address] Dr. Sona Cruz LYMPH # 1.8 103/ul Normal 1.2-3.8 The Comment on above: Performed By: #### T 7, TSH, LIPID, CMP #### Laboratory [address] [place] [address] Dr. Sona Cruz Lymphocytes/100 WBC (Bld) 14.4 % Critically low 20.5-60.0 [facility] Comment on above: Performed By: #### T 7, TSH, LIPID, CMP #### Laboratory [address] [place] [address] Dr. Sona Cruz MANUAL DIFF REQ NO Normal [facility] Comment on above: Performed By: #### T 7, TSH, LIPID, CMP #### Laboratory [address] [place] [address] Dr. Sona Cruz MCH (RBC) [Entitic mass] 30.0 pg Normal 26.7-34.0 [facility] Comment on above: Performed By: #### T 7, TSH, LIPID, CMP #### Laboratory [address] [place] [address] Dr. oSna Cruz MCHC (RBC) [Mass/Vol] 33.5 g/dL Normal 29.9-35.2 The Comment on above: Performed By: #### T 7, TSH, LIPID, CMP #### Laboratory [address] [place] [address] Dr. Sona Cruz MCV (RBC) [Entitic vol] 89.5 fL Normal 81.0-99.0 [facility] Comment on above: Performed By: #### T 7, TSH, LIPID, CMP #### Laboratory [address] [place] [address] Dr. Sona Cruz MONO # 0.8 103/ul Normal 0.3-0.8 [facility] Comment on above: Performed By: #### T 7, TSH, LIPID, CMP #### Laboratory [address] [place] [address] Dr. Sona Cruz Monocytes/100 WBC (Bld) 6.6 % Normal 1.7-12.0 [facility] Comment on above: Performed By: #### T 7, TSH, LIPID, CMP #### Laboratory [address] [place] [address] Dr. Sona Cruz NEUT # 9.5 103/ul Critically high 1.4-6.[address] [facility] Comment on above: Performed By: #### T 7, TSH, LIPID, CMP #### Laboratory [address] [place] [address] Dr. Sona Cruz Neutrophils/100 WBC (Bld) 76.6 % Critically high 43.0-75.0 [facility] Comment on above: Performed By: #### T 7, TSH, LIPID, CMP #### Laboratory [address] [place] [address] Dr. Sona Cruz Platelet mean volume (Bld) [Entitic vol] 10.5 fL Normal 9.5-13.5 [facility] Comment on above: Performed By: #### T 7, TSH, LIPID, CMP #### Laboratory [address] [place] [address] Dr. Sona Cruz PLT 261 103/ul Normal 150-450 The Comment on above: Performed By: #### T 7, TSH, LIPID, CMP #### Laboratory [address] [place] [address] Dr. Sona Cruz RBC 4.67 106/ul Normal 4.20-5.40 [facility] Comment on above: Performed By: #### T 7, TSH, LIPID, CMP #### Laboratory [address] [place] [address] Dr. Sona Cruz WBC 12.4 103/ul Critically high 4.0-11.0 [facility] Comment on above: Performed By: #### T 7, TSH, LIPID, CMP #### Laboratory [address] [place] [address] Dr. Sona Cruz CULTURE BLOODon 08-12-2022 Microscopic examination of blood, culture Culture Observations: NO GROWTH AT 5 DAYS. Isolate 1 [id number] Normal [facility] Comment on above: Performed By: #### T 7, TSH, LIPID, CMP #### Laboratory [address] [place] [address] Dr. Sona Cruz Microscopic examination of blood, culture Culture Observations: NO GROWTH AT 5 DAYS. Isolate 1 [id number] Normal [facility] Comment on above: Performed By: #### T 7, TSH, LIPID, CMP #### Laboratory [address] [place] [address] Dr. Sona Cruz CULTURE URINEon 08-12-2022 CULTURE URINE Culture Observations: NO GROWTH. Normal [facility] Comment on above: Performed By: #### U RCX #### Laboratory [address] [place] [address] Dr. Sona Cruz FREE THYROXINE INDEX T7on FTI 3.65 Normal 1.30-4.50 [facility] Comment on above: Performed By: #### T 7, TSH, LIPID, CMP #### Laboratory [address] [address] [address] Sona Cruz T3U 38.0 % Normal 30.0-39.0 [facility] Comment on above: Performed By: #### T 7, TSH, LIPID, CMP #### Laboratory [address] [address] [address] Sona Cruz T4 [Mass/Vol] 9.60 ug/dL Normal 4.80-13.[address] [facility] Comment on above: Performed By: #### T 7, TSH, LIPID, CMP #### Laboratory [address] [place] [address] Dr. Sona Cruz GLYCOHEMOGLOBIN A1Con 2022 ADA RECOMMENDATION SEE BELOW Normal The [facility] Comment on above: Result Comment: ADA RECOMMENDED LIMIT 4.0 - 6.0 ADA THERAPEUTIC TARGET < 7.0 ACTION SUGGESTED > 7.0 Performed By: #### T 7, TSH, LIPID, CMP #### Laboratory [address] [address] [address] Sona Cruz Glucose [Mass/Vol] 111 mg/dL Normal [facility] Comment on above: Performed By: #### T 7, TSH, LIPID, CMP #### Laboratory [address] [address] [address] Sona Cruz HbA1c (Bld) [Mass fraction] 5.5 % Normal 4.5-6.2 [facility] Comment on above: Performed By: #### T 7, TSH, LIPID, CMP #### Laboratory [address] [address] [address] Sona Cruz IRONon 08-12-2022 Iron [Mass/Vol] 71.0 ug/dL Normal 50.0-170.0 [facility] Comment on above: Performed By: #### T 7, TSH, LIPID, CMP #### Laboratory [address] [address] [address] Sona Cruz LIPID PROFILEon 08-12-2022 CHOL-HDL RATIO NORM SEE BELOW Normal [facility] Comment on above: Result Comment: 3.3 - 4.4 LOW RISK 4.4 - 7.1 AVERAGE RISK 7.1 - 11.0 MODERATE RISK >11.0 HIGH RISK Performed By: #### T 7, TSH, LIPID, CMP #### Laboratory [address] [place] [address] Dr. Sona Cruz Cholesterol [Mass/Vol] 216 mg/dL Critically high <=200 [facility] Comment on above: Performed By: #### T 7, TSH, LIPID, CMP #### Laboratory [address] [place] [address] Dr. Sona Cruz Cholesterol in HDL [Mass/Vol] 64 mg/dL Critically high 40-60 [facility] Comment on above: Performed By: #### T 7, TSH, LIPID, CMP #### Laboratory [address] [place] [address] Dr. Sona Cruz Cholesterol in LDL [Mass/Vol] 132.4 mg/dL Normal [facility] Comment on above: Performed By: #### T 7, TSH, LIPID, CMP #### Laboratory [address] [address] [address] Sona Cruz Cholesterol.total/Cho lesterol in HDL [Mass ratio] 3.4 {ratio} Normal [facility] Comment on above: Performed By: #### T 7, TSH, LIPID, CMP #### Laboratory [address] [place] [address] Dr. Sona Cruz HDL NORMAL > or = 60 mg/dl - LOW CARDIOVASCULAR RISK <40 mg/dl - HIGH CARDIOVASCULAR RISK Normal [facility] Comment on above: Performed By: #### T 7, TSH, LIPID, CMP #### Laboratory [address] [place] [address] Dr. Sona Cruz LDL CALC NORMAL SEE BELOW Normal [facility] Comment on above: Result Comment: <100 mg/dl OPTIMAL 100 - 129 mg/dl NEAR OR ABOVE OPTIMAL 130 - 159 mg/dl BORDERLINE HIGH 160 - 189 mg/dl HIGH >190 mg/dl VERY HIGH Performed By: #### T 7, TSH, LIPID, CMP #### Laboratory [address] [address] [address] Sona Cruz Triglyceride [Mass/Vol] 98 mg/dL Normal <=150 [facility] Comment on above: Performed By: #### T 7, TSH, LIPID, CMP #### Laboratory [address] [address] [address] Sona Cruz VLDL CALC 19.6 mg/dL Normal [facility] Comment on above: Performed By: #### T 7, TSH, LIPID, CMP #### Laboratory [address] [address] [address] Sona Cruz MONOon 08-12-2022 Monocytes (Bld) [#/Vol] Negative Normal NEGATIVE [facility] Comment on above: Performed By: #### I MADDI #### Laboratory [address] [place] [address] Dr. Sona Cruz PROF 14(COMP METB)on 023 Albumin [Mass/Vol] 3.9 g/dL Normal 3.4-5.0 [facility] Comment on above: Performed By: #### T 7, TSH, LIPID, CMP #### Laboratory [address] [place] [address] Dr. Sona Cruz Albumin/Globulin [Mass ratio] 1.1 {ratio} Normal [facility] Comment on above: Performed By: #### T 7, TSH, LIPID, CMP #### Laboratory [address] [place] [address] Dr. Sona Cruz ALP [Catalytic activity/Vol] 106 U/L Normal 46-116 [facility] Comment on above: Performed By: #### T 7, TSH, LIPID, CMP #### Laboratory [address] [place] [address] Dr. Sona Cruz ALT [Catalytic activity/Vol] 22 U/L Normal 14-59 [facility] Comment on above: Performed By: #### T 7, TSH, LIPID, CMP #### Laboratory [address] [place] [address] Dr. Sona Cruz Anion gap [Moles/Vol] 12.5 mmol/L Normal Th e Comment on above: Performed By: #### T 7, TSH, LIPID, CMP #### Laboratory [address] [address] [address] Sona Cruz AST [Catalytic activity/Vol] 15 U/L Normal 15-37 [facility] Comment on above: Performed By: #### T 7, TSH, LIPID, CMP #### Laboratory [address] [address] [address] Sona Cruz Bilirubin [Mass/Vol] 0.5 mg/dL Normal 0.2-1.0 [facility] Comment on above: Performed By: #### T 7, TSH, LIPID, CMP #### Laboratory [address] [place] [address] Dr. Sona Cruz Calcium [Mass/Vol] 9.6 mg/dL Normal 8.5-10.1 [facility] Comment on above: Performed By: #### T 7, TSH, LIPID, CMP #### Laboratory [address] [place] [address] Dr. Sona Cruz Chloride [Moles/Vol] 102 mmol/L Normal 98-107 The Comment on above: Performed By: #### T 7, TSH, LIPID, CMP #### Laboratory [address] [place] [address] Dr. Sona Cruz CO2 [Moles/Vol] 28.3 mmol/L Normal 21.0-32.0 [facility] Comment on above: Performed By: #### T 7, TSH, LIPID, CMP #### Laboratory [address] [place] [address] Dr. Sona Cruz Creatinine [Mass/Vol] 0.62 mg/dL Normal 0.55-1.02 [facility] Comment on above: Performed By: #### T 7, TSH, LIPID, CMP #### Laboratory [address] [place] [address] Dr. Sona Cruz EGFR-AF [place] >60 Normal >=60 [facility] Comment on above: Performed By: #### T 7, TSH, LIPID, CMP #### Laboratory [address] [address] [address] Sona Cruz EGFR-NON AF [place] >60 Normal >=60 The Comment on above: Performed By: #### T 7, TSH, LIPID, CMP #### Laboratory [address] [address] [address] Sona Cruz Globulin (S) [Mass/Vol] 3.7 g/dL Normal [facility] Comment on above: Performed By: #### T 7, TSH, LIPID, CMP #### Laboratory [address] [address] [address] Sona Cruz Glucose [Mass/Vol] 106 mg/dL Normal 74-106 [facility] Comment on above: Performed By: #### T 7, TSH, LIPID, CMP #### Laboratory [address] [address] [address] Sona Cruz Potassium [Moles/Vol] 3.8 mmol/L Normal 3.5-5.1 The Comment on above: Performed By: #### T 7, TSH, LIPID, CMP #### Laboratory [address] [address] [address] Sona Cruz Protein [Mass/Vol] 7.6 g/dL Normal 6.4-8.2 [facility] Comment on above: Performed By: #### T 7, TSH, LIPID, CMP #### Laboratory [address] [address] [address] Sona Cruz Sodium [Moles/Vol] 139 mmol/L Normal 136-145 [facility] Comment on above: Performed By: #### T 7, TSH, LIPID, CMP #### Laboratory [address] [address] [address] Sona Cruz Urea nitrogen [Mass/Vol] 25.0 mg/dL Critically high 7.0-18.0 [facility] Comment on above: Performed By: #### T 7, TSH, LIPID, CMP #### Laboratory [address] [address] [address] Sona Cruz Urea nitrogen/Creatinine [Mass ratio] 40.3 mg/mg Normal The Comment on above: Performed By: #### T 7, TSH, LIPID, CMP #### Laboratory [address] [place] [address] Dr. Sona Cruz PROTIMEon 08-12-2022 INR Coag (PPP) [Relative time] {INR} Normal The Comment on above: Performed By: #### T 7, TSH, LIPID, CMP #### Laboratory [address] [place] [address] Dr. Sona Cruz INR GUIDELINES SEE BELOW Normal [facility] Comment on above: Result Comment: CAROL RED INR: 2.0 - 3.0 CONDITIONS NOT LISTED BELOW 2.5 - 3.5 FOR PROSTHETIC HEART VALVE REPLACEMENT 2.5 - 3.5 RECURRENT THROMBOSIS Performed By: #### T 7, TSH, LIPID, CMP #### Laboratory [address] [place] [address] Dr. Sona Cruz PT Coag (PPP) [Time] 9.7 s Normal 9.0-11.6 The Comment on above: Performed By: #### T 7, TSH, LIPID, CMP #### Laboratory [address] [place] [address] Dr. Sona Cruz PTTon 08-12-2022 aPTT Coag (Bld) [Time] 27.1 s Normal 22.3-36.2 The Comment on above: Performed By: #### T 7, TSH, LIPID, CMP #### Laboratory [address] [place] [address] Dr. Sona Cruz SED RATE GLENERGRENon 2022 SED RATE 47 mm/hr Critically high <=[address] [facility] Comment on above: Performed By: #### T 7, TSH, LIPID, CMP #### Laboratory [address] [place] [address] Dr. Sona Cruz TSHon 08-12-2022 TSH 2.474 uIU/mL Normal 0.358-3.[address] [facility] Comment on above: Performed By: #### T 7, TSH, LIPID, CMP #### Laboratory [address] [address] [address] Sona Cruz UA RANDOM W/MICROSCOPICon BACTERIA NONE SEEN Normal NONE SEEN The Comment on above: Performed By: #### T 7, TSH, LIPID, CMP #### Laboratory [address] [place] [address] Dr. Sona Cruz Bilirubin Ql (U) Negative Normal NEGATIVE [facility] Comment on above: Performed By: #### T 7, TSH, LIPID, CMP #### Laboratory [address] [place] [address] Dr. Sona Cruz CAST NONE SEEN Normal NONE SEEN The Comment on above: Performed By: #### T 7, TSH, LIPID, CMP #### Laboratory [address] [place] [address] Dr. Sona Cruz Clarity (U) CLEAR Normal CLEAR The Comment on above: Performed By: #### T 7, TSH, LIPID, CMP #### Laboratory [address] [place] [address] Dr. Sona Cruz Color (U) YELLOW Normal YELLOW The Comment on above: Performed By: #### T 7, TSH, LIPID, CMP #### Laboratory [address] [place] [address] Dr. Sona Cruz Crystals LM Nom (Urine sed) NONE SEEN Normal NONE SEEN The Comment on above: Performed By: #### T 7, TSH, LIPID, CMP #### Laboratory [address] [place] [address] Dr. Sona Cruz Epithelial cells LM Ql (Urine sed) NONE SEEN Normal NONE SEEN /RARE The Comment on above: Performed By: #### T 7, TSH, LIPID, CMP #### Laboratory [address] [place] [address] Dr. Sona Cruz Glucose Ql (U) Negative Normal NEGATIVE [facility] Comment on above: Performed By: #### T 7, TSH, LIPID, CMP #### Laboratory [address] [place] [address] Dr. Sona Cruz Hemoglobin Ql (U) Negative Normal NEGATIVE [facility] Comment on above: Performed By: #### T 7, TSH, LIPID, CMP #### Laboratory [address] [address] [address] Sona Cruz Ketones Ql (U) Negative Normal NEGATIVE [facility] Comment on above: Performed By: #### T 7, TSH, LIPID, CMP #### Laboratory [address] [address] [address] Sona Cruz LEUKOCYTES Negative Normal NEGATIVE [facility] Comment on above: Performed By: #### T 7, TSH, LIPID, CMP #### Laboratory [address] [place] [address] Dr. Sona Cruz MUCOUS NONE SEEN Normal NONE SEEN The Comment on above: Performed By: #### T 7, TSH, LIPID, CMP #### Laboratory [address] [place] [address] Dr. Sona Cruz Nitrite Ql (U) Negative Normal NEGATIVE [facility] Comment on above: Performed By: #### T 7, TSH, LIPID, CMP #### Laboratory [address] [place] [address] Dr. Sona Cruz pH (U) 6.0 [pH] Normal 5-9 [facility] Comment on above: Performed By: #### T 7, TSH, LIPID, CMP #### Laboratory [address] [place] [address] Dr. Sona Cruz RBC 0-2 Normal 0-2 [facility] Comment on above: Performed By: #### T 7, TSH, LIPID, CMP #### Laboratory [address] [place] [address] Dr. Sona Cruz SPEC GRAVITY 1.010 Normal 1.005-<=1.[address] [facility] Comment on above: Performed By: #### T 7, TSH, LIPID, CMP #### Laboratory [address] [place] [address] Dr. Sona Cruz UA PROTEIN Negative Normal NEGATIVE/ TRACE The Comment on above: Performed By: #### T 7, TSH, LIPID, CMP #### Laboratory [address] [place] [address] Dr. Sona Cruz Urobilinogen Qn (U) 0.2 {Dayanna'U}/dL Normal 0.2 - 1. 0 The Comment on above: Performed By: #### T 7, TSH, LIPID, CMP #### Laboratory [address] [place] [address] Dr. Sona Cruz WBC NONE SEEN Normal NONE SEEN The Comment on above: Performed By: #### T 7, TSH, LIPID, CMP #### Laboratory [address] [place] [address] Dr. Sona Cruz VITAMIN B12on 08-12-2022 Cobalamin (Vitamin B12) [Mass/Vol] 542.0 pg/mL Normal 193.0-986.0 The Comment on above: Performed By: #### T 7, TSH, LIPID, CMP #### Laboratory [address] [place] [address] Dr. Sona Cruz VITAMIN D 25 OHon 08-12-2022 VIT D 25-OH 23.3 ng/mL Normal The Comment on above: Performed By: #### T 7, TSH, LIPID, CMP #### Laboratory [address] [place] [address] Dr. Sona Cruz VIT D RANGES SEE BELOW Normal The Comment on above: Result Comment: <20 ng/mL Vit D deficient 20 - <30 ng/mL Vit D insufficient 30 - 100 ng/mL Vit D sufficient >100 ng/mL Potential Toxicity Performed By: #### T 7, TSH, LIPID, CMP #### Laboratory [address] [place] [address] Dr. Sona Cruz ANTISTREPTOLYSIN O AB (ASO)o n 06-18-2022 Antistreptolysin O Ab 561.7 IU/mL Critically high 0.0-200. 0 The Comment on above: Performed By: #### T 7, TSH, LIPID, CMP #### Laboratory [address] [place] [address] Dr. Sona Cruz INSULINon 06-18-2022 Insulin 11.2 uIU/mL Normal 2.6-24.9 The Comment on above: Performed By: #### T 7, TSH, LIPID, CMP #### Laboratory [address] [place] [address] Dr. Sona Cruz CBC AUTO DIFFon 06-17-2022 BASO # 0.1 103/ul Normal 0.0-0.1 The Comment on above: Performed By: #### T 7, TSH, LIPID, CMP #### Laboratory [address] [place] [address] Dr. Sona Cruz Basophils/100 WBC (Bld) 0.6 % Normal 0.2-2.0 The Comment on above: Performed By: #### T 7, TSH, LIPID, CMP #### Laboratory [address] [place] [address] Dr. Sona Cruz EO # 0.2 103/ul Normal 0.0-0.7 The Comment on above: Performed By: #### T 7, TSH, LIPID, CMP #### Laboratory [address] [place] [address] Dr. Sona Cruz Eosinophils/100 WBC (Bld) 1.8 % Normal 0.9-7.0 The Comment on above: Performed By: #### T 7, TSH, LIPID, CMP #### Laboratory [address] [place] [address] Dr. Sona Cruz Erythrocyte distribution width (RBC) [Ratio] 15.3 % Critically high 11.0-15.0 The Comment on above: Performed By: #### T 7, TSH, LIPID, CMP #### Laboratory [address] [place] [address] Dr. Sona Cruz Hematocrit (Bld) [Volume fraction] 39.1 % Normal 36.0-48.0 The Comment on above: Performed By: #### T 7, TSH, LIPID, CMP #### Laboratory [address] [place] [address] Dr. Sona Cruz Hemoglobin (Bld) [Mass/Vol] 12.7 g/dL Normal 12.0-16.0 The Comment on above: Performed By: #### T 7, TSH, LIPID, CMP #### Laboratory [address] [place] [address] Dr. Sona Cruz IG # 0.15 10e3/ul Critically high 0.00-0.03 [facility] Comment on above: Performed By: #### T 7, TSH, LIPID, CMP #### Laboratory [address] [place] [address] Dr. Sona Cruz IG % 1.3 % Critically high 0.0-0.5 [facility] Comment on above: Performed By: #### T 7, TSH, LIPID, CMP #### Laboratory [address] [place] [address] Dr. Sona Cruz LYMPH # 2.0 103/ul Normal 1.2-3.8 [facility] Comment on above: Performed By: #### T 7, TSH, LIPID, CMP #### Laboratory [address] [place] [address] Dr. Sona Cruz Lymphocytes/100 WBC (Bld) 16.3 % Critically low 20.5-60.0 [facility] Comment on above: Performed By: #### T 7, TSH, LIPID, CMP #### Laboratory [address] [place] [address] Dr. Sona Cruz MANUAL DIFF REQ NO Normal [facility] Comment on above: Performed By: #### T 7, TSH, LIPID, CMP #### Laboratory [address] [place] [address] Dr. Sona Cruz MCH (RBC) [Entitic mass] 28.7 pg Normal 26.7-34.0 [facility] Comment on above: Performed By: #### T 7, TSH, LIPID, CMP #### Laboratory [address] [place] [address] Dr. Sona Cruz MCHC (RBC) [Mass/Vol] 32.5 g/dL Normal 29.9-35.2 [facility] Comment on above: Performed By: #### T 7, TSH, LIPID, CMP #### Laboratory [address] [address] [address] Sona Cruz MCV (RBC) [Entitic vol] 88.3 fL Normal 81.0-99.0 The Comment on above: Performed By: #### T 7, TSH, LIPID, CMP #### Laboratory [address] [place] [address] Dr. Sona Cruz MONO # 0.8 103/ul Normal 0.3-0.8 The Comment on above: Performed By: #### T 7, TSH, LIPID, CMP #### Laboratory [address] [place] [address] Dr. Sona Cruz Monocytes/100 WBC (Bld) 6.4 % Normal 1.7-12.0 The Comment on above: Performed By: #### T 7, TSH, LIPID, CMP #### Laboratory [address] [place] [address] Dr. Sona Cruz NEUT # 8.8 103/ul Critically high 1.4-6.[address] [facility] Comment on above: Performed By: #### T 7, TSH, LIPID, CMP #### Laboratory [address] [place] [address] Dr. Sona Cruz Neutrophils/100 WBC (Bld) 73.6 % Normal 43.0-75.0 The Comment on above: Performed By: #### T 7, TSH, LIPID, CMP #### Laboratory [address] [place] [address] Dr. Sona Cruz Platelet mean volume (Bld) [Entitic vol] 10.3 fL Normal 9.5-13.5 The Comment on above: Performed By: #### T 7, TSH, LIPID, CMP #### Laboratory [address] [place] [address] Dr. Sona Cruz PLT 289 103/ul Normal 150-450 The Comment on above: Performed By: #### T 7, TSH, LIPID, CMP #### Laboratory [address] [place] [address] Dr. Sona Cruz RBC 4.43 106/ul Normal 4.20-5.40 The Comment on above: Performed By: #### T 7, TSH, LIPID, CMP #### Laboratory [address] [address] [address] Sona Cruz WBC 12.0 103/ul Critically high 4.0-11.0 [facility] Comment on above: Performed By: #### T 7, TSH, LIPID, CMP #### Laboratory [address] [address] [address] Sona Cruz CULTURE URINEon 06-17-2022 CULTURE URINE Culture Observations: MODERATE GROWTH OF MIXED GENITAL DESI. NO POTENTIAL PATHOGENS SEEN. Normal The Comment on above: Performed By: #### U RCX #### Laboratory [address] [address] [address] Sona Cruz [facility] SARS-CoV-2 (COVID-19) RNA PAVAN+probe Ql (Unsp spec) Not detected Normal NOT DETECTED The Comment on above: Result Comment: This test is not yet approved or cleared by the [place] FDA. When there are no FDA-approved or cleared tests available, and other criteria are met, FDA can make tests available under an emergency access mechanism called an Emergency Use Authorization (EUA). The EUA for this test is supported by the [place] of Health and Human Service's (HHS's) declaration [...] #### T 7, TSH, LIPID, CMP #### Laboratory [address] [address] [address] Sona Cruz FREE THYROXINE INDEX T7on FTI 2.89 Normal 1.30-4.50 [facility] Comment on above: Performed By: #### I MADDI #### Laboratory [address] [address] [address] Sona Cruz T3U 34.0 % Normal 30.0-39.0 [facility] Comment on above: Performed By: #### I MADDI #### Laboratory [address] [address] [address] Sona Cruz T4 [Mass/Vol] 8.50 ug/dL Normal 4.80-13.90 [facility] Comment on above: Performed By: #### I MADDI #### Laboratory [address] [address] [address] Sona Cruz GLYCOHEMOGLOBIN A1Con 2022 ADA RECOMMENDATION SEE BELOW Normal [facility] Comment on above: Result Comment: ADA RECOMMENDED LIMIT 4.0 - 6.0 ADA THERAPEUTIC TARGET < 7.0 ACTION SUGGESTED > 7.0 Performed By: #### T 7, TSH, LIPID, CMP #### Laboratory [address] [address] [address] Sona Cruz Glucose [Mass/Vol] 114 mg/dL Normal [facility] Comment on above: Performed By: #### T 7, TSH, LIPID, CMP #### Laboratory [address] [address] [address] Sona Cruz HbA1c (Bld) [Mass fraction] 5.6 % Normal 4.5-6.2 [facility] Comment on above: Performed By: #### T 7, TSH, LIPID, CMP #### Laboratory [address] [address] [address] Sona Cruz IRONon 06-17-2022 Iron [Mass/Vol] 50.0 ug/dL Normal 50.0-170.0 [facility] Comment on above: Performed By: #### I MADDI #### Laboratory [address] [address] [address] Sona Cruz LIPID PROFILEon 06-17-2022 CHOL-HDL RATIO NORM SEE BELOW Normal [facility] Comment on above: Result Comment: 3.3 - 4.4 LOW RISK 4.4 - 7.1 AVERAGE RISK 7.1 - 11.0 MODERATE RISK >11.0 HIGH RISK Performed By: #### I MADDI #### Laboratory [address] [place] [address] Dr. Sona Cruz Cholesterol [Mass/Vol] 203 mg/dL Critically high <=200 [facility] Comment on above: Performed By: #### I MADDI #### Laboratory [address] [place] [address] Dr. Sona Cruz Cholesterol in HDL [Mass/Vol] 74 mg/dL Critically high 40-60 [facility] Comment on above: Performed By: #### I MADDI #### Laboratory [address] [place] [address] Dr. Sona Cruz Cholesterol in LDL [Mass/Vol] 112.4 mg/dL Normal [facility] Comment on above: Performed By: #### I MADDI #### Laboratory [address] [place] [address] Dr. Sona Cruz Cholesterol.total/Cho lesterol in HDL [Mass ratio] 2.7 {ratio} Normal [facility] Comment on above: Performed By: #### I MADDI #### Laboratory [address] [place] [address] Dr. Sona Cruz HDL NORMAL > or = 60 mg/dl - LOW CARDIOVASCULAR RISK <40 mg/dl - HIGH CARDIOVASCULAR RISK Normal [facility] Comment on above: Performed By: #### I MADDI #### Laboratory [address] [place] [address] Dr. Sona Cruz LDL CALC NORMAL SEE BELOW Normal [facility] Comment on above: Result Comment: <100 mg/dl OPTIMAL 100 - 129 mg/dl NEAR OR ABOVE OPTIMAL 130 - 159 mg/dl BORDERLINE HIGH 160 - 189 mg/dl HIGH >190 mg/dl VERY HIGH Performed By: #### I MADDI #### Laboratory [address] [place] [address] Dr. Sona Cruz Triglyceride [Mass/Vol] 83 mg/dL Normal <=150 [facility] Comment on above: Performed By: #### I MADDI #### Laboratory [address] [place] [address] Dr. Sona Cruz VLDL CALC 16.6 mg/dL Normal [facility] Comment on above: Performed By: #### I MADDI #### Laboratory [address] [place] [address] Dr. Sona Cruz PROF 14(COMP METB)on 023 Albumin [Mass/Vol] 3.5 g/dL Normal 3.4-5.0 [facility] Comment on above: Performed By: #### I MADDI #### Laboratory [address] [place] [address] Dr. Sona Cruz Albumin/Globulin [Mass ratio] 0.9 {ratio} Normal [facility] Comment on above: Performed By: #### I MADDI #### Laboratory [address] [place] [address] Dr. Sona Cruz ALP [Catalytic activity/Vol] 105 U/L Normal 46-116 [facility] Comment on above: Performed By: #### I MADDI #### Laboratory [address] [place] [address] Dr. Sona Cruz ALT [Catalytic activity/Vol] 18 U/L Normal 14-59 [facility] Comment on above: Performed By: #### I MADDI #### Laboratory [address] [place] [address] Dr. Sona Cruz Anion gap [Moles/Vol] 10.8 mmol/L Normal [facility] Comment on above: Performed By: #### I MADDI #### Laboratory [address] [place] [address] Dr. Sona Cruz AST [Catalytic activity/Vol] 16 U/L Normal 15-37 [facility] Comment on above: Performed By: #### I MADDI #### Laboratory [address] [place] [address] Dr. Sona Cruz Bilirubin [Mass/Vol] 0.4 mg/dL Normal 0.2-1.0 [facility] Comment on above: Performed By: #### I MADDI #### Laboratory [address] [place] [address] Dr. Sona Cruz Calcium [Mass/Vol] 9.2 mg/dL Normal 8.5-10.1 [facility] Comment on above: Performed By: #### I MADDI #### Laboratory [address] [place] [address] Dr. Sona Cruz Chloride [Moles/Vol] 101 mmol/L Normal 98-107 The Comment on above: Performed By: #### I MADDI #### Laboratory [address] [place] [address] Dr. Sona Cruz CO2 [Moles/Vol] 31.4 mmol/L Normal 21.0-32.0 [facility] Comment on above: Performed By: #### I MADDI #### Laboratory [address] [place] [address] Dr. Sona Cruz Creatinine [Mass/Vol] 0.64 mg/dL Normal 0.55-1.02 [facility] Comment on above: Performed By: #### I MADDI #### Laboratory [address] [place] [address] Dr. Sona Cruz EGFR-AF [place] >60 Normal >=60 [facility] Comment on above: Performed By: #### I MADDI #### Laboratory [address] [place] [address] Dr. Sona Cruz EGFR-NON AF [place] >60 Normal >=60 The Comment on above: Performed By: #### I MADDI #### Laboratory [address] [place] [address] Dr. Sona Cruz Globulin (S) [Mass/Vol] 3.9 g/dL Normal The Comment on above: Performed By: #### I MADDI #### Laboratory [address] [place] [address] Dr. Sona Cruz Glucose [Mass/Vol] 97 mg/dL Normal 74-106 [facility] Comment on above: Performed By: #### I MADDI #### Laboratory [address] [place] [address] Dr. Sona Cruz Potassium [Moles/Vol] 4.2 mmol/L Normal 3.5-5.1 The Comment on above: Performed By: #### I MADDI #### Laboratory [address] [address] [address] Sona Cruz Protein [Mass/Vol] 7.4 g/dL Normal 6.4-8.2 [facility] Comment on above: Performed By: #### I MADDI #### Laboratory [address] [address] [address] Sona Cruz Sodium [Moles/Vol] 139 mmol/L Normal 136-145 [facility] Comment on above: Performed By: #### I MADDI #### Laboratory [address] [address] [address] Sona Cruz Urea nitrogen [Mass/Vol] 21.0 mg/dL Critically high 7.0-18.0 [facility] Comment on above: Performed By: #### I MADDI #### Laboratory [address] [address] [address] Sona Cruz Urea nitrogen/Creatinine [Mass ratio] 32.8 mg/mg Normal [facility] Comment on above: Performed By: #### I MADDI #### Laboratory [address] [address] [address] Sona Cruz TSHon 06-17-2022 TSH 2.478 uIU/mL Normal 0.358-3.740 [facility] Comment on above: Performed By: #### I MADDI #### Laboratory [address] [address] [address] Sona Cruz UA RANDOM W/MICROSCOPICon BACTERIA NONE SEEN Normal NONE SEEN [facility] Comment on above: Performed By: #### T 7, TSH, LIPID, CMP #### Laboratory [address] [address] [address] Sona Cruz Bilirubin Ql (U) Negative Normal NEGATIVE [facility] Comment on above: Performed By: #### T 7, TSH, LIPID, CMP #### Laboratory [address] [address] [address] Sona Cruz CAST NONE SEEN Normal NONE SEEN [facility] Comment on above: Performed By: #### T 7, TSH, LIPID, CMP #### Laboratory [address] [place] [address] Dr. Sona Cruz Clarity (U) CLEAR Normal CLEAR The Comment on above: Performed By: #### T 7, TSH, LIPID, CMP #### Laboratory [address] [address] [address] Sona Cruz Color (U) LT. YELLOW Normal YELLOW The Comment on above: Performed By: #### T 7, TSH, LIPID, CMP #### Laboratory [address] [place] [address] Dr. Sona Cruz Crystals LM Nom (Urine sed) NONE SEEN Normal NONE SEEN The Comment on above: Performed By: #### T 7, TSH, LIPID, CMP #### Laboratory [address] [place] [address] Dr. Sona Cruz Epithelial cells LM Ql (Urine sed) FEW Abnormal NONE SEEN /RARE The Comment on above: Performed By: #### T 7, TSH, LIPID, CMP #### Laboratory [address] [place] [address] Dr. Sona Cruz Glucose Ql (U) Negative Normal NEGATIVE [facility] Comment on above: Performed By: #### T 7, TSH, LIPID, CMP #### Laboratory [address] [place] [address] Dr. Sona Cruz Hemoglobin Ql (U) Negative Normal NEGATIVE [facility] Comment on above: Performed By: #### T 7, TSH, LIPID, CMP #### Laboratory [address] [place] [address] Dr. Sona Cruz Ketones Ql (U) Negative Normal NEGATIVE [facility] Comment on above: Performed By: #### T 7, TSH, LIPID, CMP #### Laboratory [address] [place] [address] Dr. Sona Cruz LEUKOCYTES Negative Normal NEGATIVE The Comment on above: Performed By: #### T 7, TSH, LIPID, CMP #### Laboratory [address] [place] [address] Dr. Sona Cruz MUCOUS NONE SEEN Normal NONE SEEN The Comment on above: Performed By: #### T 7, TSH, LIPID, CMP #### Laboratory [address] [address] [address] Sona Cruz Nitrite Ql (U) Negative Normal NEGATIVE [facility] Comment on above: Performed By: #### T 7, TSH, LIPID, CMP #### Laboratory [address] [address] [address] Sona Cruz pH (U) 6.0 [pH] Normal 5-9 [facility] Comment on above: Performed By: #### T 7, TSH, LIPID, CMP #### Laboratory [address] [address] [address] Sona Cruz RBC 0-2 Normal 0-2 [facility] Comment on above: Performed By: #### T 7, TSH, LIPID, CMP #### Laboratory [address] [address] [address] Sona Cruz SPEC GRAVITY 1.020 Normal 1.005-<=1.025 [facility] Comment on above: Performed By: #### T 7, TSH, LIPID, CMP #### Laboratory [address] [address] [address] Sona Cruz UA PROTEIN Negative Normal NEGATIVE/ TRACE The Comment on above: Performed By: #### T 7, TSH, LIPID, CMP #### Laboratory [address] [address] [address] Sona Cruz Urobilinogen Qn (U) 0.2 {Dayanna'U}/dL Normal 0.2 - 1. 0 [facility] Comment on above: Performed By: #### T 7, TSH, LIPID, CMP #### Laboratory [address] [address] [address] Sona Cruz WBC 0-2 Abnormal NONE SEEN The Comment on above: Performed By: #### T 7, TSH, LIPID, CMP #### Laboratory [address] [address] [address] Sona Cruz ANTISTREPTOLYSIN O AB (ASO)o n 05-18-2022 Antistreptolysin O Ab 866.8 IU/mL Critically high 0.0-200. 0 [facility] Comment on above: Result Comment: Resu lts confirmed on dilution. Performed By: #### T 7, TSH, LIPID, CMP #### Laboratory [address] [place] [address] Dr. Sona Cruz CBC AUTO DIFFon 05-17-2022 BASO # 0.1 103/ul Normal 0.0-0.1 [facility] Comment on above: Performed By: #### T 7, TSH, LIPID, CMP #### Laboratory [address] [place] [address] Dr. Sona Cruz Basophils/100 WBC (Bld) 0.6 % Normal 0.2-2.0 [facility] Comment on above: Performed By: #### T 7, TSH, LIPID, CMP #### Laboratory [address] [place] [address] Dr. Sona Cruz EO # 0.2 103/ul Normal 0.0-0.7 [facility] Comment on above: Performed By: #### T 7, TSH, LIPID, CMP #### Laboratory [address] [place] [address] Dr. Sona Cruz Eosinophils/100 WBC (Bld) 1.8 % Normal 0.9-7.0 [facility] Comment on above: Performed By: #### T 7, TSH, LIPID, CMP #### Laboratory [address] [place] [address] Dr. Sona Cruz Erythrocyte distribution width (RBC) [Ratio] 14.2 % Normal 11.0-15.0 [facility] Comment on above: Performed By: #### T 7, TSH, LIPID, CMP #### Laboratory [address] [place] [address] Dr. Sona Cruz Hematocrit (Bld) [Volume fraction] 44.7 % Normal 36.0-48.0 [facility] Comment on above: Performed By: #### T 7, TSH, LIPID, CMP #### Laboratory [address] [place] [address] Dr. Sona Cruz Hemoglobin (Bld) [Mass/Vol] 14.4 g/dL Normal 12.0-16.0 [facility] Comment on above: Performed By: #### T 7, TSH, LIPID, CMP #### Laboratory [address] [address] [address] Sona Cruz IG # 0.09 10e3/ul Critically high 0.00-0.03 [facility] Comment on above: Performed By: #### T 7, TSH, LIPID, CMP #### Laboratory [address] [place] [address] Dr. Sona Cruz IG % 0.7 % Critically high 0.0-0.[address] [facility] Comment on above: Performed By: #### T 7, TSH, LIPID, CMP #### Laboratory [address] [place] [address] Dr. Sona Cruz LYMPH # 2.2 103/ul Normal 1.2-3.8 The Comment on above: Performed By: #### T 7, TSH, LIPID, CMP #### Laboratory [address] [place] [address] Dr. Sona Cruz Lymphocytes/100 WBC (Bld) 17.2 % Critically low 20.5-60.0 [facility] Comment on above: Performed By: #### T 7, TSH, LIPID, CMP #### Laboratory [address] [place] [address] Dr. Sona Cruz MANUAL DIFF REQ NO Normal [facility] Comment on above: Performed By: #### T 7, TSH, LIPID, CMP #### Laboratory [address] [place] [address] Dr. Sona Cruz MCH (RBC) [Entitic mass] 28.7 pg Normal 26.7-34.0 The Comment on above: Performed By: #### T 7, TSH, LIPID, CMP #### Laboratory [address] [place] [address] Dr. Sona Cruz MCHC (RBC) [Mass/Vol] 32.2 g/dL Normal 29.9-35.2 The Comment on above: Performed By: #### T 7, TSH, LIPID, CMP #### Laboratory [address] [place] [address] Dr. Sona Cruz MCV (RBC) [Entitic vol] 89.0 fL Normal 81.0-99.0 [facility] Comment on above: Performed By: #### T 7, TSH, LIPID, CMP #### Laboratory [address] [place] [address] Dr. Sona Cruz MONO # 0.9 103/ul Critically high 0.3-0.[address] [facility] Comment on above: Performed By: #### T 7, TSH, LIPID, CMP #### Laboratory [address] [place] [address] Dr. Sona Cruz Monocytes/100 WBC (Bld) 6.5 % Normal 1.7-12.0 The Comment on above: Performed By: #### T 7, TSH, LIPID, CMP #### Laboratory [address] [place] [address] Dr. Sona Cruz NEUT # 9.5 103/ul Critically high 1.4-6.[address] [facility] Comment on above: Performed By: #### T 7, TSH, LIPID, CMP #### Laboratory [address] [place] [address] Dr. Sona Cruz Neutrophils/100 WBC (Bld) 73.2 % Normal 43.0-75.0 The Comment on above: Performed By: #### T 7, TSH, LIPID, CMP #### Laboratory [address] [place] [address] Dr. Sona Cruz Platelet mean volume (Bld) [Entitic vol] 10.5 fL Normal 9.5-13.5 The Comment on above: Performed By: #### T 7, TSH, LIPID, CMP #### Laboratory [address] [place] [address] Dr. Sona Cruz PLT 319 103/ul Normal 150-450 The Comment on above: Performed By: #### T 7, TSH, LIPID, CMP #### Laboratory [address] [place], [place] [id number] Dr. Sona Cruz RBC 5.02 106/ul Normal 4.20-5.40 [facility] Comment on above: Performed By: #### T 7, TSH, LIPID, CMP #### Laboratory [address] [place] [address] Dr. Sona Cruz WBC 13.0 103/ul Critically high 4.0-11.0 [facility] Comment on above: Performed By: #### T 7, TSH, LIPID, CMP #### Laboratory [address] [place] [address] Dr. Sona Cruz CRPon 05-17-2022 CRP [Mass/Vol] mg/L Normal <=1.0 [facility] Comment on above: Performed By: #### T 7, TSH, LIPID, CMP #### Laboratory [address] [place] [address] Dr. Sona Cruz CULTURE BLOODon 05-17-2022 Microscopic examination of blood, culture Culture Observations: NO GROWTH AT 5 DAYS. Normal [facility] Comment on above: Performed By: #### B LDCX2 #### Laboratory [address] [place] [address] Dr. Sona Cruz Microscopic examination of blood, culture Culture Observations: NO GROWTH AT 5 DAYS. Normal [facility] Comment on above: Performed By: #### B LDCX1 #### Laboratory [address] [place] [address] Dr. Sona Cruz SED RATE WESTERGRENon 2021 SED RATE 54 mm/hr Critically high <=[address] [facility] Comment on above: Performed By: #### T 7, TSH, LIPID, CMP #### Laboratory [address] [place] [address] Dr. Sona Cruz MRI LSPINE WO CONon [...] YUNIOR ROBBINS Date: 2022-05-06 15:01 Normal The MG MAMM SCREEN 3D CESAR CADon 04-15-2022 MG MAMM SCREEN 3D CESAR CAD Patient: SYLVIE ALTAMIRANO Exam Date: 04/15/2022 : 1970 Gender:F Ordering : DR ELEUTERIO CARRANZA . Admission #: [id number] Family : Order #: [id number] CLICK HERE TO VIEW EXAM RADIOLOGY REPORT PROCEDURE: MAMMOGRAM SCREENING 3D BILATERAL CAD COMPARISON: None. INDICATIONS: Screening mammography Calculator Name NCI Breast Cancer Risk Assessment Tool 5 Year Breast Cancer Risk 0.80% Lifetime Breast Cancer Risk 7.10% Personal Breast Cancer No Personal Ovarian Cancer No Treatments None Family Cancers Sister with colon cancer at age 34. LOCATION: The BREAST COMPOSITION: Almost entirely fatty. FINDINGS: DIAGNOSTIC [...] on 04/15/2022 at 14:17 Normal [facility] ECHOCARDIO M/2D COMPLETEon 1 ECHOCARDIO M/2D COMPLETE Patient: SYLVIE ALTAMIRANO Exam Date: 04/08/2022 : 1970 Gender:F Ordering : DR ELEUTERIO CARRANZA . Admission #: [id number] Family : Order #: [id number] CLICK HERE TO VIEW EXAM ECHOCARDIOGRAM REPORT [...] Lazaro M.D. on 04/13/2022 at 11:32 Normal [facility] SLE PROFILE Aon 04-01-2022 Anti-DNA (DS) Ab Qn 1 IU/mL Normal 0-9 [facility] Comment on above: Result Comment: Nega tive <5 Equivocal 5 - 9 Positive >9 Performed By: #### T 7, TSH, LIPID, CMP #### Laboratory [address] [address] [address] Sona Cruz Antichromatin Antibodies <0.2 Normal 0.0-0.9 [facility] Comment on above: Performed By: #### T 7, TSH, LIPID, CMP #### Laboratory [address] [place] [address] Dr. Sona Cruz RA Latex Turbid. <10.0 Normal <14.0 [facility] Comment on above: Performed By: #### T 7, TSH, LIPID, CMP #### Laboratory [address] [place] [address] Dr. Sona Cruz BOARDER MACHINE Antibodies 0.2 AI Normal 0.0-0.9 [facility] Comment on above: Performed By: #### T 7, TSH, LIPID, CMP #### Laboratory [address] [place] [address] Dr. Sona Cruz Sjogrольга's Anti-SS-A <0.2 Normal 0.0-0.9 [facility] Comment on above: Performed By: #### T 7, TSH, LIPID, CMP #### Laboratory [address] [place] [address] Dr. Sona Cruz Sjogrольга's Anti-SS-B <0.2 Normal 0.0-0.9 [facility] Comment on above: Performed By: #### T 7, TSH, LIPID, CMP #### Laboratory [address] [place] [address] Dr. Sona Cruz Judd Antibodies <0.2 Normal 0.0-0.9 [facility] Comment on above: Performed By: #### T 7, TSH, LIPID, CMP #### Laboratory [address] [place] [address] Dr. Sona Cruz REGGIE by IFAon 03-31-2022 Antinuclear Antibodies, IFA Negative Normal [facility] Comment on above: Result Comment: Nega tive <1:80 Borderline 1:80 Positive >1:80 ICAP nomenclature: AC-0 For more information about Hep-2 cell patterns use ANApatterns.org, the official website for the International Consensus on Antinuclear Antibody (REGGIE) Patterns (ICAP). Performed By: #### T 7, TSH, LIPID, CMP #### Laboratory [address] [place] [address] Dr. Sona Cruz RHEUMATOID FACTORon 03-31-20 RA Latex Turbid. <10.0 Normal <14.0 [facility] Comment on above: Performed By: #### T 7, TSH, LIPID, CMP #### Laboratory [address] [place] [address] Dr. Sona Cruz ANTISTREPTOLYSIN O AB (ASO)o n 03-30-2022 Antistreptolysin O Ab 1118.1 IU/mL Critically high 0.0-200 .0 [facility] Comment on above: Result Comment: Resu lts confirmed on dilution. Performed By: #### T 7, TSH, LIPID, CMP #### Laboratory [address] [place] [address] Dr. Sona Cruz DANIELLE-GARCIA VIRUS (EBV) AB PROFILEon 03-30-2022 EBV Ab VCA, IgG 57.9 U/mL Critically high 0.0-17.9 [facility] Comment on above: Result Comment: Nega tive <18.0 Equivocal 18.0 - 21.9 Positive >21.9 Performed By: #### T 7, TSH, LIPID, CMP #### Laboratory [address] [place] [address] Dr. Sona Cruz EBV Ab VCA, IgM <36.0 Normal 0.0-35.[address] [facility] Comment on above: Result Comment: Nega tive <36.0 Equivocal 36.0 - 43.9 Positive >43.9 Performed By: #### T 7, TSH, LIPID, CMP #### Laboratory [address] [place] [address] Dr. Sona Cruz EBV Nuclear Antigen Ab, IgG 135.0 U/mL Critically high 0.0-17.9 [facility] Comment on above: Result Comment: Nega tive <18.0 Equivocal 18.0 - 21.9 Positive >21.9 Performed By: #### T 7, TSH, LIPID, CMP #### Laboratory [address] [place], [place] [address] Dr. Sona Cruz Interpretation: Comment Normal [facility] Comment on above: Result Comment: EBV Interpretation [...] #### T 7, TSH, LIPID, CMP #### Laboratory [address] [place], [place] [address] Dr. Sona Cruz XR KNEE CESAR 4V [...] involving medial compartment. Electronically authenticated by: YUNIOR ORBBINS Date: 2022-03-30 07:05 Normal [facility] XR LSPINE MIN 4 VIEWSon 03-12 XR [...] YUNIOR ZIMARILOUDONALD Date: 2022-03-30 07:13 Normal The CRPon 03-29-2022 CRP 1.4 mg/dL Critically high <=1.[address] [facility] Comment on above: Performed By: #### T 7, TSH, LIPID, CMP #### Laboratory [address] [address] [address] Sona Cruz FREE THYROXINE INDEX T7on FTI 2.62 Normal 1.30-4.50 [facility] Comment on above: Performed By: #### T 7, TSH, LIPID, CMP #### Laboratory [address] [place] [address] Dr. Sona Cruz T3U 34.0 % Normal 30.0-39.0 [facility] Comment on above: Performed By: #### T 7, TSH, LIPID, CMP #### Laboratory [address] [address] [address] Sona Cruz T4 [Mass/Vol] 7.70 ug/dL Normal 4.80-13.[address] [facility] Comment on above: Performed By: #### T 7, TSH, LIPID, CMP #### Laboratory [address] [address] [address] [facility] 48 mm/hr Critically high <=[address] [facility] Comment on above: Performed By: #### T 7, TSH, LIPID, CMP #### Laboratory [address] [place] [address] Dr. Sona Cruz TSHon 03-29-2022 TSH 2.577 uIU/mL Normal 0.358-3.[address] [facility] Comment on above: Performed By: #### T 7, TSH, LIPID, CMP #### Laboratory [address] [place] [address] Dr. Sona Cruz URIC ACID SERUMon 03-29-2022 Urate [Mass/Vol] 4.2 mg/dL Normal 2.6-6.0 [facility] Comment on above: Performed By: #### T 7, TSH, LIPID, CMP #### Laboratory [address] [address] [address] Sona Cruz CHEMISTRYOrdered By: SYSTEM SYSTEM [...] jacome 03-05-2024 09:25-0400 Blood Pressure Location Nica [employer] [facility] [place] 03-05-2024 09:25-0400 Diastolic blood pressure 81 mm[Hg] Nica FRANCOL [facility] [place] 03-05-2024 09:25-0400 Heart rate 114 /min Nica [employer] [facility] [place] 03-05-2024 09:25-0400 Respiratory rate 16 /min Nica FRANCOL [facility] [place] 03-05-2024 09:25-0400 Systolic blood pressure 134 mm[Hg] Nica FRANCOL [facility] [place] 05-17-2022 13:43-0500 Blood Pressure Location Nica NILL [facility] 05-17-2022 13:43-0500 Diastolic blood pressure 86 mm[Hg] Nica NILL [facility] 05-17-2022 13:43-0500 Heart rate 72 /min Nica FRANCOL [facility] 05-17-2022 13:43-0500 Respiratory rate 16 /min Nica ISRAEL [facility] [place] 05-17-2022 [id number] Systolic blood pressure 122 mm[Hg] Nica ISRAEL [facility] [place] Encounters Encounter Date Encounter Type Care Provider Facility Start: 03-05-2024 End: 03-05-2024 ambulatory Nica Belle QI Facility: [facility] Start: 03-05-2024 End: 03-05-2024 Patient encounter procedure Nica ISRAEL [facility] [place] Start: 02-29-2024 ambulatory Nica ISRAEL Facility:[facility] [place] Start: 10-26-2022 End: 10-26-[address] ELEUTERIO CARRANZA . Facility:[facility] Start: 09-30-2022 End: 10-01-[address] ELEUTERIO CARRANZA . Facility:[facility] Start: 08-12-2022 End: 08-13-[address] ELEUTERIO CARRANZA . Facility:[facility] Start: 06-22-2022 End: 06-22-[address] NICA ISRAEL . Facility:[facility] Start: 06-20-2022 Encounter for preprocedural laboratory examination DR ELEUTERIO CARRANZA . [facility] Start: 06-17-2022 End: 06-18-2022 Encounter for preprocedural laboratory examination DR ELEUTERIO CARRANZA . Facility:[facility] Start: 06-17-2022 End: 06-18-[address] ELEUTERIO CARRANZA . Facility:[facility] Start: 05-17-2022 End: 05-18-[address] ELEUTERIO CARRANZA . Facility:[facility] Start: 05-17-2022 End: 05-17-2022 Patient encounter procedure Nica ISRAEL [facility] [place] Start: 05-06-2022 End: 05-07-[address] ELEUTERIO [...] End: 02-17-2022 Patient encounter procedure Eleuterio Carranza [facility] Start: 01-17-2022 End: 04-17-2022 Recurring AYAAN BAH [facility] Procedures Date Procedure Procedure Detail Performing Clinician Start: 06-22-2022 Colonoscopy Nica NI LL Start: 08-10-2011 Colonoscopy Nica NI LL Appendectomy Nica NILL Cholecystectomy Nica NILL Colonoscopy Nica NILL Dilation and curettage Yeison FRANCOL Exploratory laparotomy Yeison FRANCOL Total hysterectomy v ia vaginal approach Nica FRANCOL Immunizations Immunization Date Immunization Notes Care Provider Fa cility 05-16-2021 SARS-CoV-2 (COVID-19 ) mRNA-1273 vaccine Nica NILL [facility] [place] 04-29-2021 SARS-CoV-2 (COVID-19 ) Ad26 vaccine, recombinant Nica SALVADORL [facility] [place] NEGATED: Highlighted row has not occurred!05-17-2022 influenza virus vaccine, unspecified formulation Nica ISRAEL [facility] [place] Payers Date Payer Category Payer Unknown [id number] 2.16.84 [id number] 1970 Unknown [id number] 2.16.84 [id number] 1970 Unknown [id number] 2.16.84 [id number] 1971 Unknown [id number] 2.16.84 0.1.635773.3.579.2.593 1971 Unknown [id number] 2.16.84 0.1.244314.3.579.2.593 1971 Unknown [id number] 2.16.84 0.1.980078.3.579.2.593 1971 Unknown [id number] 2.16.84 0.1.245665.3.579.2.593 1971 Unknown [id number] 2.16.84 0.1.493839.3.579.2.593 1971 Unknown [id number] 2.16.84 0.1.938548.3.579.2.593 1971 Unknown [id number] 2.16.84 0.1.583785.3.579.2.593 1971 Unknown [id number] 2.16.84 0.1.115745.3.579.2.593 1971 Unknown [id number] 2.16.84 0.1.152986.3.579.2.593 1971 Unknown [id number] 2.16.84 0.1.342112.3.579.2.593 1971 Unknown [id number] 2.16.84 0.1.784850.3.579.2.593 1971 Unknown [id number] 2.16.84 0.1.200790.3.579.2.593 1970 Unknown [id number] 2.16.8 [id number] 1958 Self-pay 1958 Unknown [id number] 1958 Unknown [id number] Social History Date Type Detail Facility Tobacco [facility] Comment on above: denies Sex Assigned At Female [facility] Tobacco smoking status No Smokin g Status Entered [facility] Start: 05-17-2022 Tobacco smoking status Heavy t obacco smoker (finding) [facility] [place] Tobacco smoking status Never [facility] [place] Start: 03-05-2024 Tobacco smoking status Light t obacco smoker (finding) [facility] [place] Functional Status Date Assessment Result Facility 03-05-2024 Functional Status N/A [facility] [place] 05-17-2022 Functional Status N/A [facility] Clinical Note 03-05-2024 Note Date & [...] Recorded SARS-CoV-2 (COVID-19) Ad26 vaccine 04/29/2021 Recorded [facility] Comment on above: Result Comment: Elec [...] pathology results. CC: Eleuterio Carranza M.D. The Evaluation + Plan note 02-17-2022 Note Date & Type Note Facility 02-17-2022 Evaluation + Plan note Diagnostic Tests PendingInsulin Level Total 02/17/22 [facility] Evaluation + Plan note Note Date & Type Note Facility Evaluation + Plan note Future Appointments Appointment Date:04/29/2022 01:00:00 PM Scheduled Provider:Nica ISRAEL MD Location:[facility] Appointment Type:[address] Hospital course Narrative Note Date & Type Note Facility Hospital course Narrative No data available for this section [facility] Discharge instructions Note Date & Type Note Facility Hospital Discharge instructions No data available for this section [facility] Progress note Note Date & Type Note Facility Progress note No data available for this section [facility] Summary Purpose Family History No Family History Records Found No data available for this section No Family History Records Found Advance Directives No Advanced Directives Records FoundNo Advanced Directives Records Found Additional Source Comments Care Team (unrecognized sect ion and content) Personnel Name: Eleuterio Carranza MD Address: [address] [place] [address] Personnel Name: Eleuterio Carranza MD Address: Address: [address] [place] [address] Personnel Name: Eleuterio Carranza MD Address: Address: [address] [place] [address] Personnel Name: Eleuterio Carranza MD Address: Address: [address] [place] [address] INFORMATION SOURCE (unrecogn ized section and content) DATE CREATED AUTHOR 10/27/2022 [facility] DATE CREATED AUTHOR AUTHOR'S ORGANIZ ATION 03/07/2024 [facility] FOR RECORDS PERTAINING TO PATIENTS WHO [...] THE PRIMARY CLINICAL RECORDS. [facility] [employer] [facility]. provides no warranty or guarantee of the accuracy or completeness of information in this document.
[2025-03-18 15:18] LABS: Hematocrit 39.5 % (36.0-48.0); Hemoglobin 12.6 g/dL (12.0-16.0); Immature Granulocytes Abs Auto 0.14 10^3/uL (0.00-0.03); Immature Granulocytes Pct Auto 0.9 % (0.0-0.5); Lymphocytes Absolute Auto 2.3 10^3/uL (1.2-3.8); Mean Corpuscular HGB Conc 31.9 g/dL (29.9-35.2); Mean Corpuscular Hemoglobin 27.0 pg (26.7-34.0); Mean Corpuscular Volume 84.8 fL (81.0-99.0); Platelet Count 318 10^3/uL (150-450); Red Blood Count 4.66 10^6/uL (4.20-5.40); White Blood Count 16.0 10^3/uL (4.0-11.0)
[2025-03-18 15:39] LABS: Iron 29.0 ug/dL (50.0-170.0)
[2025-03-18 15:52] LABS: Alanine Aminotransferase 42 U/L (14-59); Albumin Globulin Ratio 0.8; Albumin Level 3.5 g/dL (3.4-5.0); Alkaline Phosphatase 120 U/L (46-116); Anion Gap 16.8; Aspartate Amino Transferase 34 U/L (15-37); Blood Urea Nitrogen 18.0 mg/dL (7.0-18.0); Calcium 9.5 mg/dL (8.5-10.1); Carbon Dioxide 26.4 mmol/L (21.0-32.0); Chloride 101 mmol/L (98-107); Cholesterol 156 mg/dL (<=200); Estimated GFR (African America >60 (>=60 mL/min/1.73m^2); Estimated GFR (Non-African Ame >60 (>=60 mL/min/1.73m^2); Free T3 2.45 pg/mL (2.18-3.98); Globulin 4.3 g/dL; Glucose 149 mg/dL (74-106); HDL Cholesterol 44 mg/dL (40-60); Potassium 4.2 mmol/L (3.5-5.1); Sodium 140 mmol/L (136-145); Thyroid Stimulating Hormone 2.584 uIU/mL (0.358-3.740); Total Protein 7.8 g/dL (6.4-8.2); Triglycerides 157 mg/dL (<=150); Uric Acid 6.0 mg/dL (2.6-6.0); VLDL CHOLESTEROL 31.4 mg/dL
[2025-03-19 18:08] LABS: Antinuclear Antibodies, IFA Negative (.)
== END 2025-03-18 14:46 | disposition home or self-care (01) ==
LOC: MAMMO 14:46
PROVIDERS: PCP Family Medicine; Visit Provider Family Medicine
DX: Z00.00 Encounter for general adult medical examination without abnormal findings (principal); Z12.31 Encounter for screening mammogram for malignant neoplasm of breast; Z80.0 Family history of malignant neoplasm of digestive organs
CPT/HCPCS: 36415; 77063; 77067; 80053; 80061; 83036; 83525; 83540; 84436; 84443; 84481; 84550; 85025; 85652; 86038; 86060; 86140; 86431

== ENCOUNTER 2025-03-31 16:32 | Outpatient (OUT) | payer OTHER, SELFPAY ==
--- OUTSIDE RECORDS SUMMARY | 2025-03-31 16:37 | XMS_ITS | CCD ---
Author Organization [facility] Care Team Providers Care Network Relations Consultant Name Role Phone Eleuterio Carranza Primary Care Physician [phone] HOY ., [address] MCCLELLAN Primary Care Unavailable [...] Unavailable HOY ., DR MCCLELLAN Attending Unavailable [place], DR MOISE Diaz Consulting Unavailable NILL, Nica Odonnell Attending Unavailable Eleuterio Carranza Referring Unavailable Allergies Allergy Classification Reported Allergen(s) Allergy Type Date of Onset Reaction(s) Facility (3 sources) venlafaxine; Translations: [venlafaxine] Drug Allergy Dizziness (finding) General Surgery [place] (1 source) venlafaxine Drug Allergy [facility] Repository Medications Current Medications Medication Drug Class(es) Dates Sig (Normalized) Sig (Original) acetaminophen 325 mg / HYDROcodone bitartrate 5 mg oral tablet (2 sources) Opioid Agonist Start: 03-06-2017 [place] 325 mg-5 mg oral tablet See Instructions, [...] 20 tab(s), Refills(s) 0, Pharmacy: [facility] 1984 Start Date: 07/27/18 Status: Ordered Prilosec [...] 04-01-20 Chronic Other aftercare (1 source) [facility] [place] [facility] (current) drug therapy; Translations: [[facility] CURRENT DRUG THERAPY] Onset: 10-28-19 Episodic Other [...] Team Attending Physician - QI ARGUETA, Nica Odonnlel Primary Care Physician - Tere ARGUETA, Eleuterio [...] for choosing us for your care. Normal [facility] XR CHEST 1 Von 10-26-2022 XR [...] PILO ELIAS Date: 2022-10-26 19:03 Normal [facility] CULTURE BLOODon 09-30-2022 Microscopic examination of blood, culture Culture Observations: NO GROWTH AT 5 DAYS. Normal [facility] Comment on above: Performed By: #### T 7, TSH, LIPID, CMP #### [facility] [address] [address] [address] Sona Cruz Microscopic examination of blood, culture Culture Observations: NO GROWTH AT 5 DAYS. Normal [facility] Comment on above: Performed By: #### T 7, TSH, LIPID, CMP #### [facility] [address] [place], [place] [address] Dr. Sona Cruz CULTURE URINEon 09-30-2022 CULTURE URINE Culture Observations: NO GROWTH. Normal [facility] Comment on above: Performed By: #### T 7, TSH, LIPID, CMP #### [facility] [address] [place], [place] [address] Dr. Sona Cruz UA RANDOM W/MICROSCOPICon BACTERIA NONE SEEN Normal NONE SEEN [facility] Comment on above: Performed By: #### T 7, TSH, LIPID, CMP #### [facility] [address] [address] [address] Sona Cruz Bilirubin Ql (U) Negative Normal NEGATIVE [facility] Comment on above: Performed By: #### T 7, TSH, LIPID, CMP #### [facility] [address] [place] [address] Dr. Sona Cruz CAST NONE SEEN Normal NONE SEEN [facility] Comment on above: Performed By: #### T 7, TSH, LIPID, CMP #### [facility] [address] [place] [address] Dr. Sona Cruz Clarity (U) CLEAR Normal CLEAR [facility] Comment on above: Performed By: #### T 7, TSH, LIPID, CMP #### [facility] [address] [place] [address] Dr. Sona Cruz Color (U) LT. YELLOW Normal YELLOW [facility] Comment on above: Performed By: #### T 7, TSH, LIPID, CMP #### [facility] [address] [place] [address] Dr. Sona Cruz Crystals LM Nom (Urine sed) SEEN Abnormal NONE SEEN [facility] Comment on above: Performed By: #### T 7, TSH, LIPID, CMP #### [facility] [address] [place] [address] Dr. Sona Cruz Epithelial cells LM Ql (Urine sed) FEW Abnormal NONE SEEN /RARE [facility] Comment on above: Performed By: #### T 7, TSH, LIPID, CMP #### [facility] [address] [place] [address] Dr. Sona Cruz Glucose Ql (U) Negative Normal NEGATIVE [facility] Comment on above: Performed By: #### T 7, TSH, LIPID, CMP #### [facility] [address] [place] [address] Dr. Sona Cruz Hemoglobin Ql (U) Negative Normal NEGATIVE [facility] Comment on above: Performed By: #### T 7, TSH, LIPID, CMP #### [facility] [address] [place] [address] Dr. Sona Cruz Ketones Ql (U) Negative Normal NEGATIVE [facility] Comment on above: Performed By: #### T 7, TSH, LIPID, CMP #### [facility] [address] [address] [address] Sona Cruz LEUKOCYTES Negative Normal NEGATIVE [facility] Comment on above: Performed By: #### T 7, TSH, LIPID, CMP #### [facility] [address] [address] [address] Sona Cruz MUCOUS NONE SEEN Normal NONE SEEN [facility] Comment on above: Performed By: #### T 7, TSH, LIPID, CMP #### [facility] [address] [address] [address] Sona Cruz Nitrite Ql (U) Negative Normal NEGATIVE [facility] Comment on above: Performed By: #### T 7, TSH, LIPID, CMP #### [facility] [address] [place] [address] Dr. Sona Cruz pH (U) 5.5 [pH] Normal 5-9 [facility] Comment on above: Performed By: #### T 7, TSH, LIPID, CMP #### [facility] [address] [place] [address] Dr. Sona Cruz RBC 0-2 Normal 0-2 [facility] Comment on above: Performed By: #### T 7, TSH, LIPID, CMP #### [facility] [address] [address] [address] Sona Cruz SPEC GRAVITY 1.025 Normal 1.005-<=1.025 [facility] Comment on above: Performed By: #### T 7, TSH, LIPID, CMP #### [facility] [address] [address] [address] Sona Cruz UA PROTEIN Negative Normal NEGATIVE/ TRACE [facility] Comment on above: Performed By: #### T 7, TSH, LIPID, CMP #### [facility] [address] [place] [address] Dr. Sona Cruz Urobilinogen Qn (U) 0.2 {Dayanna'U}/dL Normal 0.2 - 1. 0 [facility] Comment on above: Performed By: #### T 7, TSH, LIPID, CMP #### [facility] [address] [place] [address] Dr. Sona Cruz WBC 0-2 Abnormal NONE SEEN [facility] Comment on above: Performed By: #### T 7, TSH, LIPID, CMP #### [facility] [address] [address] [address] Sona Cruz VITAMIN B12on 09-30-2022 Cobalamin (Vitamin B12) [Mass/Vol] 383.0 pg/mL Normal 193.0-986.0 [facility] Comment on above: Performed By: #### V ITB12 #### [facility] [address] [place] [address] Dr. Sona Cruz DANIELLE-GARCIA VIRUS (EBV) AB PROFILEon 08-15-2022 EBV Ab VCA, IgG 71.8 U/mL Critically high 0.0-17.9 [facility] Comment on above: Result Comment: Nega tive <18.0 Equivocal 18.0 - 21.9 Positive >21.9 Performed By: #### T 7, TSH, LIPID, CMP #### [facility] [address] [place] [address] Dr. Sona Cruz EBV Ab VCA, IgM <36.0 Normal 0.0-35.9 [facility] Comment on above: Result Comment: Nega tive <36.0 Equivocal 36.0 - 43.9 Positive >43.9 Performed By: #### T 7, TSH, LIPID, CMP #### [facility] [address] [place] [address] Dr. Sona Cruz EBV Nuclear Antigen Ab, IgG 146.0 U/mL Critically high 0.0-17.9 [facility] Comment on above: Result Comment: Nega tive <18.0 Equivocal 18.0 - 21.9 Positive >21.9 Performed By: #### T 7, TSH, LIPID, CMP #### [facility] [address] [place] [address] Dr. Sona Cruz Interpretation: Comment Normal [facility] Comment on above: Result Comment: [...] #### T 7, TSH, LIPID, CMP #### [facility] [address] [place] [address] Dr. Sona Cruz INSULINon 08-13-2022 Insulin 18.5 uIU/mL Normal 2.6-24.9 [facility] Comment on above: Performed By: #### T 7, TSH, LIPID, CMP #### [facility] [address] [place] [address] Dr. Sona Cruz CBC AUTO DIFFon 08-12-2022 BASO # 0.1 103/ul Normal 0.0-0.1 [facility] Comment on above: Performed By: #### T 7, TSH, LIPID, CMP #### [facility] [address] [address] [address] Sona Cruz Basophils/100 WBC (Bld) 0.5 % Normal 0.2-2.0 [facility] Comment on above: Performed By: #### T 7, TSH, LIPID, CMP #### [facility] [address] [address] [address] Sona Cruz EO # 0.1 103/ul Normal 0.0-0.7 [facility] Comment on above: Performed By: #### T 7, TSH, LIPID, CMP #### [facility] [address] [place] [address] Dr. Sona Cruz Eosinophils/100 WBC (Bld) 0.9 % Normal 0.9-7.0 [facility] Comment on above: Performed By: #### T 7, TSH, LIPID, CMP #### [facility] [address] [place] [address] Dr. Sona Cruz Erythrocyte distribution width (RBC) [Ratio] 14.4 % Normal 11.0-15.0 [facility] Comment on above: Performed By: #### T 7, TSH, LIPID, CMP #### [facility] [address] [place] [address] Dr. Sona Cruz Hematocrit (Bld) [Volume fraction] 41.8 % Normal 36.0-48.0 [facility] Comment on above: Performed By: #### T 7, TSH, LIPID, CMP #### [facility] [address] [place] [address] Dr. Sona Cruz Hemoglobin (Bld) [Mass/Vol] 14.0 g/dL Normal 12.0-16.0 [facility] Comment on above: Performed By: #### T 7, TSH, LIPID, CMP #### [facility] [address] [place] [address] Dr. Sona Cruz IG # 0.12 10e3/ul Critically high 0.00-0.03 [facility] Comment on above: Performed By: #### T 7, TSH, LIPID, CMP #### [facility] [address] [place] [address] Dr. Sona Cruz IG % 1.0 % Critically high 0.0-0.5 [facility] Comment on above: Performed By: #### T 7, TSH, LIPID, CMP #### [facility] [address] [place] [address] Dr. Sona Cruz LYMPH # 1.8 103/ul Normal 1.2-3.8 [facility] Comment on above: Performed By: #### T 7, TSH, LIPID, CMP #### [facility] [address] [place] [address] Dr. Sona Cruz Lymphocytes/100 WBC (Bld) 14.4 % Critically low 20.5-60.0 [facility] Comment on above: Performed By: #### T 7, TSH, LIPID, CMP #### [facility] [address] [place] [address] Dr. Sona Cruz MANUAL DIFF REQ NO Normal [facility] Comment on above: Performed By: #### T 7, TSH, LIPID, CMP #### [facility] [address] [place] [address] Dr. Sona Cruz MCH (RBC) [Entitic mass] 30.0 pg Normal 26.7-34.0 [facility] Comment on above: Performed By: #### T 7, TSH, LIPID, CMP #### [facility] [address] [place] [address] Dr. Sona Cruz MCHC (RBC) [Mass/Vol] 33.5 g/dL Normal 29.9-35.2 [facility] Comment on above: Performed By: #### T 7, TSH, LIPID, CMP #### [facility] [address] [place] [address] Dr. Sona Cruz MCV (RBC) [Entitic vol] 89.5 fL Normal 81.0-99.0 [facility] Comment on above: Performed By: #### T 7, TSH, LIPID, CMP #### [facility] [address] [place] [address] Dr. Sona Cruz MONO # 0.8 103/ul Normal 0.3-0.8 [facility] Comment on above: Performed By: #### T 7, TSH, LIPID, CMP #### [facility] [address] [place] [address] Dr. Sona Cruz Monocytes/100 WBC (Bld) 6.6 % Normal 1.7-12.0 [facility] Comment on above: Performed By: #### T 7, TSH, LIPID, CMP #### [facility] [address] [place] [address] Dr. Sona Cruz NEUT # 9.5 103/ul Critically high 1.4-6.5 [facility] Comment on above: Performed By: #### T 7, TSH, LIPID, CMP #### [facility] [address] [place] [address] Dr. Sona Cruz Neutrophils/100 WBC (Bld) 76.6 % Critically high 43.0-75.0 [facility] Comment on above: Performed By: #### T 7, TSH, LIPID, CMP #### [facility] [address] [place] [address] Dr. Sona Cruz Platelet mean volume (Bld) [Entitic vol] 10.5 fL Normal 9.5-13.5 [facility] Comment on above: Performed By: #### T 7, TSH, LIPID, CMP #### [facility] [address] [place] [address] Dr. Sona Cruz PLT 261 103/ul Normal 150-450 [facility] Comment on above: Performed By: #### T 7, TSH, LIPID, CMP #### [facility] [address] [place] [address] Dr. Sona Cruz RBC 4.67 106/ul Normal 4.20-5.40 [facility] Comment on above: Performed By: #### T 7, TSH, LIPID, CMP #### [facility] [address] [place] [address] Dr. Sona Cruz WBC 12.4 103/ul Critically high 4.0-11.[address] [facility] Comment on above: Performed By: #### T 7, TSH, LIPID, CMP #### [facility] [address] [place] [address] Dr. Sona Cruz CULTURE BLOODon 08-12-2022 Microscopic examination of blood, culture Culture Observations: NO GROWTH AT 5 DAYS. Isolate 1 BC_BA_NA Normal [facility] Comment on above: Performed By: #### T 7, TSH, LIPID, CMP #### [facility] [address] [place] [address] Dr. Sona Cruz Microscopic examination of blood, culture Culture Observations: NO GROWTH AT 5 DAYS. Isolate 1 BC_BA_NA Normal [facility] Comment on above: Performed By: #### T 7, TSH, LIPID, CMP #### [facility] [address] [place] [address] Dr. Sona Cruz CULTURE URINEon 08-12-2022 CULTURE URINE Culture Observations: NO GROWTH. Normal [facility] Comment on above: Performed By: #### U RCX #### [facility] [address] [place] [address] Dr. Sona Cruz FREE THYROXINE INDEX T7on FTI 3.65 Normal 1.30-4.50 [facility] Comment on above: Performed By: #### T 7, TSH, LIPID, CMP #### [facility] [address] [address] [address] Sona Cruz T3U 38.0 % Normal 30.0-39.0 [facility] Comment on above: Performed By: #### T 7, TSH, LIPID, CMP #### [facility] [address] [address] [address] Sona Cruz T4 [Mass/Vol] 9.60 ug/dL Normal 4.80-13.90 [facility] Comment on above: Performed By: #### T 7, TSH, LIPID, CMP #### [facility] [address] [place] [address] Dr. Sona Cruz GLYCOHEMOGLOBIN A1Con 2022 ADA RECOMMENDATION SEE BELOW Normal [facility] Comment on above: Result Comment: ADA RECOMMENDED LIMIT 4.0 - 6.0 ADA THERAPEUTIC TARGET < 7.0 ACTION SUGGESTED > 7.0 Performed By: #### T 7, TSH, LIPID, CMP #### [facility] [address] [address] [address] Sona Cruz Glucose [Mass/Vol] 111 mg/dL Normal [facility] Comment on above: Performed By: #### T 7, TSH, LIPID, CMP #### [facility] [address] [address] [address] Sona Cruz HbA1c (Bld) [Mass fraction] 5.5 % Normal 4.5-6.2 [facility] Comment on above: Performed By: #### T 7, TSH, LIPID, CMP #### [facility] [address] [address] [address] Sona Cruz IRONon 08-12-2022 Iron [Mass/Vol] 71.0 ug/dL Normal 50.0-170.0 [facility] Comment on above: Performed By: #### T 7, TSH, LIPID, CMP #### [facility] [address] [address] [address] Sona Cruz LIPID PROFILEon 08-12-2022 CHOL-HDL RATIO NORM SEE BELOW Normal [facility] Comment on above: Result Comment: 3.3 - 4.4 LOW RISK 4.4 - 7.1 AVERAGE RISK 7.1 - 11.0 MODERATE RISK >11.0 HIGH RISK Performed By: #### T 7, TSH, LIPID, CMP #### [facility] [address] [place] [address] Dr. Sona Cruz Cholesterol [Mass/Vol] 216 mg/dL Critically high <=200 [facility] Comment on above: Performed By: #### T 7, TSH, LIPID, CMP #### [facility] [address] [place] [address] Dr. Sona Cruz Cholesterol in HDL [Mass/Vol] 64 mg/dL Critically high 40-60 [facility] Comment on above: Performed By: #### T 7, TSH, LIPID, CMP #### [facility] [address] [place] [address] Dr. Sona Cruz Cholesterol in LDL [Mass/Vol] 132.4 mg/dL Normal [facility] Comment on above: Performed By: #### T 7, TSH, LIPID, CMP #### [facility] [address] [address] [address] Sona Cruz Cholesterol.total/Cho lesterol in HDL [Mass ratio] 3.4 {ratio} Normal [facility] Comment on above: Performed By: #### T 7, TSH, LIPID, CMP #### [facility] [address] [place] [address] Dr. Sona Cruz HDL NORMAL > or = 60 mg/dl - LOW CARDIOVASCULAR RISK <40 mg/dl - HIGH CARDIOVASCULAR RISK Normal [facility] Comment on above: Performed By: #### T 7, TSH, LIPID, CMP #### [facility] [address] [place] [address] Dr. Sona Cruz LDL CALC NORMAL SEE BELOW Normal [facility] Comment on above: Result Comment: <100 mg/dl OPTIMAL 100 - 129 mg/dl NEAR OR ABOVE OPTIMAL 130 - 159 mg/dl BORDERLINE HIGH 160 - 189 mg/dl HIGH >190 mg/dl VERY HIGH Performed By: #### T 7, TSH, LIPID, CMP #### [facility] [address] [address] [address] Sona Cruz Triglyceride [Mass/Vol] 98 mg/dL Normal <=150 [facility] Comment on above: Performed By: #### T 7, TSH, LIPID, CMP #### [facility] [address] [address] [address] Sona Cruz VLDL CALC 19.6 mg/dL Normal [facility] Comment on above: Performed By: #### T 7, TSH, LIPID, CMP #### [facility] [address] [address] [address] Sona Cruz MONOon 08-12-2022 Monocytes (Bld) [#/Vol] Negative Normal NEGATIVE [facility] Comment on above: Performed By: #### I MADDI #### [facility] [address] [place] [address] Dr. Sona Cruz PROF 14(COMP METB)on 023 Albumin [Mass/Vol] 3.9 g/dL Normal 3.4-5.0 [facility] Comment on above: Performed By: #### T 7, TSH, LIPID, CMP #### [facility] [address] [place] [address] Dr. Sona Cruz Albumin/Globulin [Mass ratio] 1.1 {ratio} Normal [facility] Comment on above: Performed By: #### T 7, TSH, LIPID, CMP #### [facility] [address] [place] [address] Dr. Sona Cruz ALP [Catalytic activity/Vol] 106 U/L Normal 46-116 [facility] Comment on above: Performed By: #### T 7, TSH, LIPID, CMP #### [facility] [address] [place] [address] Dr. Sona Cruz ALT [Catalytic activity/Vol] 22 U/L Normal 14-59 [facility] Comment on above: Performed By: #### T 7, TSH, LIPID, CMP #### [facility] [address] [place] [address] Dr. Sona Cruz Anion gap [Moles/Vol] 12.5 mmol/L Normal [facility] Comment on above: Performed By: #### T 7, TSH, LIPID, CMP #### [facility] [address] [address] [address] Sona Cruz AST [Catalytic activity/Vol] 15 U/L Normal 15-37 [facility] Comment on above: Performed By: #### T 7, TSH, LIPID, CMP #### [facility] [address] [address] [address] Sona Cruz Bilirubin [Mass/Vol] 0.5 mg/dL Normal 0.2-1.0 [facility] Comment on above: Performed By: #### T 7, TSH, LIPID, CMP #### [facility] [address] [place] [address] Dr. Sona Cruz Calcium [Mass/Vol] 9.6 mg/dL Normal 8.5-10.1 [facility] Comment on above: Performed By: #### T 7, TSH, LIPID, CMP #### [facility] [address] [place] [address] Dr. Sona Cruz Chloride [Moles/Vol] 102 mmol/L Normal 98-107 [facility] Comment on above: Performed By: #### T 7, TSH, LIPID, CMP #### [facility] [address] [place] [address] Dr. Sona Cruz CO2 [Moles/Vol] 28.3 mmol/L Normal 21.0-32.0 [facility] Comment on above: Performed By: #### T 7, TSH, LIPID, CMP #### [facility] [address] [place] [address] Dr. Sona Cruz Creatinine [Mass/Vol] 0.62 mg/dL Normal 0.55-1.02 [facility] Comment on above: Performed By: #### T 7, TSH, LIPID, CMP #### [facility] [address] [place] [address] Dr. Sona Cruz EGFR-AF TUNISIAN >60 Normal >=60 [facility] Comment on above: Performed By: #### T 7, TSH, LIPID, CMP #### [facility] [address] [address] [address] Sona Cruz EGFR-NON AF TUNISIAN >60 Normal >=60 [facility] Comment on above: Performed By: #### T 7, TSH, LIPID, CMP #### [facility] [address] [address] [address] Sona Cruz Globulin (S) [Mass/Vol] 3.7 g/dL Normal [facility] Comment on above: Performed By: #### T 7, TSH, LIPID, CMP #### [facility] [address] [address] [address] Sona Cruz Glucose [Mass/Vol] 106 mg/dL Normal 74-106 [facility] Comment on above: Performed By: #### T 7, TSH, LIPID, CMP #### [facility] [address] [address] [address] Sona Cruz Potassium [Moles/Vol] 3.8 mmol/L Normal 3.5-5.1 [facility] Comment on above: Performed By: #### T 7, TSH, LIPID, CMP #### [facility] [address] [address] [address] Sona Cruz Protein [Mass/Vol] 7.6 g/dL Normal 6.4-8.2 [facility] Comment on above: Performed By: #### T 7, TSH, LIPID, CMP #### [facility] [address] [address] [address] Sona Cruz Sodium [Moles/Vol] 139 mmol/L Normal 136-145 [facility] Comment on above: Performed By: #### T 7, TSH, LIPID, CMP #### [facility] [address] [address] [address] Sona Cruz Urea nitrogen [Mass/Vol] 25.0 mg/dL Critically high 7.0-18.0 [facility] Comment on above: Performed By: #### T 7, TSH, LIPID, CMP #### [facility] [address] [address] [address] Sona Cruz Urea nitrogen/Creatinine [Mass ratio] 40.3 mg/mg Normal [facility] Comment on above: Performed By: #### T 7, TSH, LIPID, CMP #### [facility] [address] [place] [address] Dr. Sona Cruz PROTIMEon 08-12-2022 INR Coag (PPP) [Relative time] {INR} Normal [facility] Comment on above: Performed By: #### T 7, TSH, LIPID, CMP #### [facility] [address] [place] [address] Dr. Sona Cruz INR GUIDELINES SEE BELOW Normal [facility] Comment on above: Result Comment: CAROL RED INR: 2.0 - 3.0 CONDITIONS NOT LISTED BELOW 2.5 - 3.5 FOR PROSTHETIC HEART VALVE REPLACEMENT 2.5 - 3.5 RECURRENT THROMBOSIS Performed By: #### T 7, TSH, LIPID, CMP #### [facility] [address] [place] [address] Dr. Sona Cruz PT Coag (PPP) [Time] 9.7 s Normal 9.0-11.6 [facility] Comment on above: Performed By: #### T 7, TSH, LIPID, CMP #### [facility] [address] [place] [address] Dr. Sona Cruz PTTon 08-12-2022 aPTT Coag (Bld) [Time] 27.1 s Normal 22.3-36.2 [facility] Comment on above: Performed By: #### T 7, TSH, LIPID, CMP #### [facility] [address] [place] [address] Dr. Sona Cruz SED RATE HARTSBURGERGRENon 2022 SED RATE 47 mm/hr Critically high <=30 [facility] Comment on above: Performed By: #### T 7, TSH, LIPID, CMP #### [facility] [address] [place] [address] Dr. Sona Cruz TSHon 08-12-2022 TSH 2.474 uIU/mL Normal 0.358-3.740 [facility] Comment on above: Performed By: #### T 7, TSH, LIPID, CMP #### [facility] [address] [address] [address] Sona Cruz UA RANDOM W/MICROSCOPICon BACTERIA NONE SEEN Normal NONE SEEN [facility] Comment on above: Performed By: #### T 7, TSH, LIPID, CMP #### [facility] [address] [place] [address] Dr. Sona Cruz Bilirubin Ql (U) Negative Normal NEGATIVE [facility] Comment on above: Performed By: #### T 7, TSH, LIPID, CMP #### [facility] [address] [place] [address] Dr. Sona Cruz CAST NONE SEEN Normal NONE SEEN [facility] Comment on above: Performed By: #### T 7, TSH, LIPID, CMP #### [facility] [address] [place] [address] Dr. Sona Cruz Clarity (U) CLEAR Normal CLEAR [facility] Comment on above: Performed By: #### T 7, TSH, LIPID, CMP #### [facility] [address] [place] [address] Dr. Sona Cruz Color (U) YELLOW Normal YELLOW [facility] Comment on above: Performed By: #### T 7, TSH, LIPID, CMP #### [facility] [address] [place] [address] Dr. Sona Cruz Crystals LM Nom (Urine sed) NONE SEEN Normal NONE SEEN [facility] Comment on above: Performed By: #### T 7, TSH, LIPID, CMP #### [facility] [address] [place] [address] Dr. Sona Cruz Epithelial cells LM Ql (Urine sed) NONE SEEN Normal NONE SEEN /RARE [facility] Comment on above: Performed By: #### T 7, TSH, LIPID, CMP #### [facility] [address] [place] [address] Dr. Sona Cruz Glucose Ql (U) Negative Normal NEGATIVE [facility] Comment on above: Performed By: #### T 7, TSH, LIPID, CMP #### [facility] [address] [place] [address] Dr. Sona Cruz Hemoglobin Ql (U) Negative Normal NEGATIVE [facility] Comment on above: Performed By: #### T 7, TSH, LIPID, CMP #### [facility] [address] [address] [address] Sona Cruz Ketones Ql (U) Negative Normal NEGATIVE [facility] Comment on above: Performed By: #### T 7, TSH, LIPID, CMP #### [facility] [address] [address] [address] Sona Cruz LEUKOCYTES Negative Normal NEGATIVE [facility] Comment on above: Performed By: #### T 7, TSH, LIPID, CMP #### [facility] [address] [place] [address] Dr. Sona Cruz MUCOUS NONE SEEN Normal NONE SEEN [facility] Comment on above: Performed By: #### T 7, TSH, LIPID, CMP #### [facility] [address] [place] [address] Dr. Sona Cruz Nitrite Ql (U) Negative Normal NEGATIVE [facility] Comment on above: Performed By: #### T 7, TSH, LIPID, CMP #### [facility] [address] [place] [address] Dr. Sona Cruz pH (U) 6.0 [pH] Normal 5-9 [facility] Comment on above: Performed By: #### T 7, TSH, LIPID, CMP #### [facility] [address] [place] [address] Dr. Sona Cruz RBC 0-2 Normal 0-2 [facility] Comment on above: Performed By: #### T 7, TSH, LIPID, CMP #### [facility] [address] [place] [address] Dr. Sona Cruz SPEC GRAVITY 1.010 Normal 1.005-<=1.025 [facility] Comment on above: Performed By: #### T 7, TSH, LIPID, CMP #### [facility] [address] [place] [address] Dr. Sona Cruz UA PROTEIN Negative Normal NEGATIVE/ TRACE [facility] Comment on above: Performed By: #### T 7, TSH, LIPID, CMP #### [facility] [address] [place] [address] Dr. Sona Cruz Urobilinogen Qn (U) 0.2 {Dayanna'U}/dL Normal 0.2 - 1. 0 [facility] Comment on above: Performed By: #### T 7, TSH, LIPID, CMP #### [facility] [address] [place] [address] Dr. Sona Cruz WBC NONE SEEN Normal NONE SEEN [facility] Comment on above: Performed By: #### T 7, TSH, LIPID, CMP #### [facility] [address] [place] [address] Dr. Sona Cruz VITAMIN B12on 08-12-2022 Cobalamin (Vitamin B12) [Mass/Vol] 542.0 pg/mL Normal 193.0-986.0 [facility] Comment on above: Performed By: #### T 7, TSH, LIPID, CMP #### [facility] [address] [place] [address] Dr. Sona Cruz VITAMIN D 25 OHon 08-12-2022 VIT D 25-OH 23.3 ng/mL Normal [facility] Comment on above: Performed By: #### T 7, TSH, LIPID, CMP #### [facility] [address] [place] [address] Dr. Sona Cruz VIT D RANGES SEE BELOW Normal [facility] Comment on above: Result Comment: <20 ng/mL Vit D deficient 20 - <30 ng/mL Vit D insufficient 30 - 100 ng/mL Vit D sufficient >100 ng/mL Potential Toxicity Performed By: #### T 7, TSH, LIPID, CMP #### [facility] [address] [place] [address] Dr. Sona Cruz ANTISTREPTOLYSIN O AB (ASO)o n 06-18-2022 Antistreptolysin O Ab 561.7 IU/mL Critically high 0.0-200. 0 [facility] Comment on above: Performed By: #### T 7, TSH, LIPID, CMP #### [facility] [address] [place] [address] Dr. Sona Cruz INSULINon 06-18-2022 Insulin 11.2 uIU/mL Normal 2.6-24.9 [facility] Comment on above: Performed By: #### T 7, TSH, LIPID, CMP #### [facility] [address] [place] [address] Dr. Sona Cruz CBC AUTO DIFFon 06-17-2022 BASO # 0.1 103/ul Normal 0.0-0.1 [facility] Comment on above: Performed By: #### T 7, TSH, LIPID, CMP #### [facility] [address] [place] [address] Dr. Sona Cruz Basophils/100 WBC (Bld) 0.6 % Normal 0.2-2.0 [facility] Comment on above: Performed By: #### T 7, TSH, LIPID, CMP #### [facility] [address] [place] [address] Dr. Sona Cruz EO # 0.2 103/ul Normal 0.0-0.7 [facility] Comment on above: Performed By: #### T 7, TSH, LIPID, CMP #### [facility] [address] [place] [address] Dr. Sona Cruz Eosinophils/100 WBC (Bld) 1.8 % Normal 0.9-7.0 [facility] Comment on above: Performed By: #### T 7, TSH, LIPID, CMP #### [facility] [address] [place] [address] Dr. Sona Cruz Erythrocyte distribution width (RBC) [Ratio] 15.3 % Critically high 11.0-15.0 [facility] Comment on above: Performed By: #### T 7, TSH, LIPID, CMP #### [facility] [address] [place] [address] Dr. Sona Cruz Hematocrit (Bld) [Volume fraction] 39.1 % Normal 36.0-48.0 [facility] Comment on above: Performed By: #### T 7, TSH, LIPID, CMP #### [facility] [address] [place] [address] Dr. Sona Cruz Hemoglobin (Bld) [Mass/Vol] 12.7 g/dL Normal 12.0-16.0 [facility] Comment on above: Performed By: #### T 7, TSH, LIPID, CMP #### [facility] [address] [place] [address] Dr. Sona Cruz IG # 0.15 10e3/ul Critically high 0.00-0.03 [facility] Comment on above: Performed By: #### T 7, TSH, LIPID, CMP #### [facility] [address] [place] [address] Dr. Sona Cruz IG % 1.3 % Critically high 0.0-0.5 [facility] Comment on above: Performed By: #### T 7, TSH, LIPID, CMP #### [facility] [address] [place] [address] Dr. Sona Cruz LYMPH # 2.0 103/ul Normal 1.2-3.8 [facility] Comment on above: Performed By: #### T 7, TSH, LIPID, CMP #### [facility] [address] [place] [address] Dr. Sona Cruz Lymphocytes/100 WBC (Bld) 16.3 % Critically low 20.5-60.0 [facility] Comment on above: Performed By: #### T 7, TSH, LIPID, CMP #### [facility] [address] [place] [address] Dr. Sona Cruz MANUAL DIFF REQ NO Normal [facility] Comment on above: Performed By: #### T 7, TSH, LIPID, CMP #### [facility] [address] [place] [address] Dr. Sona Cruz MCH (RBC) [Entitic mass] 28.7 pg Normal 26.7-34.0 [facility] Comment on above: Performed By: #### T 7, TSH, LIPID, CMP #### [facility] [address] [place] [address] Dr. Sona Cruz MCHC (RBC) [Mass/Vol] 32.5 g/dL Normal 29.9-35.2 [facility] Comment on above: Performed By: #### T 7, TSH, LIPID, CMP #### [facility] [address] [address] [address] Sona Cruz MCV (RBC) [Entitic vol] 88.3 fL Normal 81.0-99.0 [facility] Comment on above: Performed By: #### T 7, TSH, LIPID, CMP #### [facility] [address] [place] [address] Dr. Sona Cruz MONO # 0.8 103/ul Normal 0.3-0.8 [facility] Comment on above: Performed By: #### T 7, TSH, LIPID, CMP #### [facility] [address] [place] [address] Dr. Sona Cruz Monocytes/100 WBC (Bld) 6.4 % Normal 1.7-12.0 [facility] Comment on above: Performed By: #### T 7, TSH, LIPID, CMP #### [facility] [address] [place] [address] Dr. Sona Cruz NEUT # 8.8 103/ul Critically high 1.4-6.5 [facility] Comment on above: Performed By: #### T 7, TSH, LIPID, CMP #### [facility] [address] [place] [address] Dr. Sona Cruz Neutrophils/100 WBC (Bld) 73.6 % Normal 43.0-75.0 [facility] Comment on above: Performed By: #### T 7, TSH, LIPID, CMP #### [facility] [address] [place] [address] Dr. Sona Cruz Platelet mean volume (Bld) [Entitic vol] 10.3 fL Normal 9.5-13.5 [facility] Comment on above: Performed By: #### T 7, TSH, LIPID, CMP #### [facility] [address] [place] [address] Dr. Sona Cruz PLT 289 103/ul Normal 150-450 [facility] Comment on above: Performed By: #### T 7, TSH, LIPID, CMP #### [facility] [address] [place] [address] Dr. Sona Cruz RBC 4.43 106/ul Normal 4.20-5.40 [facility] Comment on above: Performed By: #### T 7, TSH, LIPID, CMP #### [facility] [address] [address] [address] Sona Cruz WBC 12.0 103/ul Critically high 4.0-11.0 [facility] Comment on above: Performed By: #### T 7, TSH, LIPID, CMP #### [facility] [address] [address] [address] Sona Cruz CULTURE URINEon 06-17-2022 CULTURE URINE Culture Observations: MODERATE GROWTH OF MIXED GENITAL DESI. NO POTENTIAL PATHOGENS SEEN. Normal [facility] Comment on above: Performed By: #### U RCX #### [facility] [address] [address] [address] Sona Cruz [facility]on SARS-CoV-2 (COVID-19) RNA PAVAN+probe Ql (Unsp spec) Not detected Normal NOT DETECTED [facility] Comment on above: Result Comment: This test is not yet approved or cleared by the [place] FDA. When there are no FDA-approved or cleared tests available, and other criteria are met, FDA can make tests available under an emergency access mechanism called an Emergency Use Authorization (EUA). The EUA for this test is supported by the [employer] of Health and Human Service's [...] #### T 7, TSH, LIPID, CMP #### [facility] [address] [address] [address] Sona Cruz FREE THYROXINE INDEX T7on FTI 2.89 Normal 1.30-4.50 [facility] Comment on above: Performed By: #### I MADDI #### [facility] [address] [address] [address] Sona Cruz T3U 34.0 % Normal 30.0-39.0 [facility] Comment on above: Performed By: #### I MADDI #### [facility] [address] [address] [address] Sona Cruz T4 [Mass/Vol] 8.50 ug/dL Normal 4.80-13.90 [facility] Comment on above: Performed By: #### I MADDI #### [facility] [address] [address] [address] Sona Cruz GLYCOHEMOGLOBIN A1Con 2022 ADA RECOMMENDATION SEE BELOW Normal [facility] Comment on above: Result Comment: ADA RECOMMENDED LIMIT 4.0 - 6.0 ADA THERAPEUTIC TARGET < 7.0 ACTION SUGGESTED > 7.0 Performed By: #### T 7, TSH, LIPID, CMP #### [facility] [address] [address] [address] Sona Cruz Glucose [Mass/Vol] 114 mg/dL Normal [facility] Comment on above: Performed By: #### T 7, TSH, LIPID, CMP #### [facility] [address] [address] [address] Sona Cruz HbA1c (Bld) [Mass fraction] 5.6 % Normal 4.5-6.2 [facility] Comment on above: Performed By: #### T 7, TSH, LIPID, CMP #### [facility] [address] [address] [address] Sona Cruz IRONon 06-17-2022 Iron [Mass/Vol] 50.0 ug/dL Normal 50.0-170.0 [facility] Comment on above: Performed By: #### I MADDI #### [facility] [address] [address] [address] Sona Cruz LIPID PROFILEon 06-17-2022 CHOL-HDL RATIO NORM SEE BELOW Normal [facility] Comment on above: Result Comment: 3.3 - 4.4 LOW RISK 4.4 - 7.1 AVERAGE RISK 7.1 - 11.0 MODERATE RISK >11.0 HIGH RISK Performed By: #### I MADDI #### [facility] [address] [place] [address] Dr. Sona Cruz Cholesterol [Mass/Vol] 203 mg/dL Critically high <=200 [facility] Comment on above: Performed By: #### I MADDI #### [facility] [address] [place] [address] Dr. Sona Cruz Cholesterol in HDL [Mass/Vol] 74 mg/dL Critically high 40-60 [facility] Comment on above: Performed By: #### I MADDI #### [facility] [address] [place] [address] Dr. Sona Cruz Cholesterol in LDL [Mass/Vol] 112.4 mg/dL Normal [facility] Comment on above: Performed By: #### I MADDI #### [facility] [address] [place] [address] Dr. Sona Cruz Cholesterol.total/Cho lesterol in HDL [Mass ratio] 2.7 {ratio} Normal [facility] Comment on above: Performed By: #### I MADDI #### [facility] [address] [place] [address] Dr. Sona Cruz HDL NORMAL > or = 60 mg/dl - LOW CARDIOVASCULAR RISK <40 mg/dl - HIGH CARDIOVASCULAR RISK Normal [facility] Comment on above: Performed By: #### I MADDI #### [facility] [address] [place] [address] Dr. Sona Cruz LDL CALC NORMAL SEE BELOW Normal [facility] Comment on above: Result Comment: <100 mg/dl OPTIMAL 100 - 129 mg/dl NEAR OR ABOVE OPTIMAL 130 - 159 mg/dl BORDERLINE HIGH 160 - 189 mg/dl HIGH >190 mg/dl VERY HIGH Performed By: #### I MADDI #### [facility] [address] [place] [address] Dr. Sona Cruz Triglyceride [Mass/Vol] 83 mg/dL Normal <=150 [facility] Comment on above: Performed By: #### I MADDI #### [facility] [address] [place] [address] Dr. Sona Cruz VLDL CALC 16.6 mg/dL Normal [facility] Comment on above: Performed By: #### I MADDI #### [facility] [address] [place] [address] Dr. Sona Cruz PROF 14(COMP METB)on 023 Albumin [Mass/Vol] 3.5 g/dL Normal 3.4-5.0 [facility] Comment on above: Performed By: #### I MADDI #### [facility] [address] [place] [address] Dr. Sona Cruz Albumin/Globulin [Mass ratio] 0.9 {ratio} Normal [facility] Comment on above: Performed By: #### I MADDI #### [facility] [address] [place] [address] Dr. Sona Cruz ALP [Catalytic activity/Vol] 105 U/L Normal 46-116 [facility] Comment on above: Performed By: #### I MADDI #### [facility] [address] [place] [address] Dr. Sona Cruz ALT [Catalytic activity/Vol] 18 U/L Normal 14-59 [facility] Comment on above: Performed By: #### I MADDI #### [facility] [address] [place] [address] Dr. Sona Cruz Anion gap [Moles/Vol] 10.8 mmol/L Normal [facility] Comment on above: Performed By: #### I MADDI #### [facility] [address] [place] [address] Dr. Sona Cruz AST [Catalytic activity/Vol] 16 U/L Normal 15-37 [facility] Comment on above: Performed By: #### I MADDI #### [facility] [address] [place] [address] Dr. Sona Cruz Bilirubin [Mass/Vol] 0.4 mg/dL Normal 0.2-1.0 [facility] Comment on above: Performed By: #### I MADDI #### [facility] [address] [place] [address] Dr. Sona Cruz Calcium [Mass/Vol] 9.2 mg/dL Normal 8.5-10.1 [facility] Comment on above: Performed By: #### I MADDI #### [facility] [address] [place] [address] Dr. Sona Cruz Chloride [Moles/Vol] 101 mmol/L Normal 98-107 [facility] Comment on above: Performed By: #### I MADDI #### [facility] [address] [place] [address] Dr. Sona Cruz CO2 [Moles/Vol] 31.4 mmol/L Normal 21.0-32.[address] [facility] Comment on above: Performed By: #### I MADDI #### [facility] [address] [place] [address] Dr. Sona Cruz Creatinine [Mass/Vol] 0.64 mg/dL Normal 0.55-1.02 [facility] Comment on above: Performed By: #### I MADDI #### [facility] [address] [place] [address] Dr. Sona Cruz EGFR-AF TUNISIAN >60 Normal >=60 [facility] Comment on above: Performed By: #### I MADDI #### [facility] [address] [place] [address] Dr. Sona Cruz EGFR-NON AF TUNISIAN >60 Normal >=60 [facility] Comment on above: Performed By: #### I MADDI #### [facility] [address] [place] [address] Dr. Sona Cruz Globulin (S) [Mass/Vol] 3.9 g/dL Normal [facility] Comment on above: Performed By: #### I MADDI #### [facility] [address] [place] [address] Dr. Sona Cruz Glucose [Mass/Vol] 97 mg/dL Normal 74-106 [facility] Comment on above: Performed By: #### I MADDI #### [facility] [address] [place] [address] Dr. Sona Cruz Potassium [Moles/Vol] 4.2 mmol/L Normal 3.5-5.1 [facility] Comment on above: Performed By: #### I MADDI #### [facility] [address] [address] [address] Sona Cruz Protein [Mass/Vol] 7.4 g/dL Normal 6.4-8.2 [facility] Comment on above: Performed By: #### I MADDI #### [facility] [address] [address] [address] Sona Cruz Sodium [Moles/Vol] 139 mmol/L Normal 136-145 [facility] Comment on above: Performed By: #### I MADDI #### [facility] [address] [address] [address] Sona Cruz Urea nitrogen [Mass/Vol] 21.0 mg/dL Critically high 7.0-18.0 [facility] Comment on above: Performed By: #### I MADDI #### [facility] [address] [address] [address] Sona Cruz Urea nitrogen/Creatinine [Mass ratio] 32.8 mg/mg Normal [facility] Comment on above: Performed By: #### I MADDI #### [facility] [address] [address] [address] Sona Cruz TSHon 06-17-2022 TSH 2.478 uIU/mL Normal 0.358-3.740 [facility] Comment on above: Performed By: #### I MADDI #### [facility] [address] [address] [address] Sona Cruz UA RANDOM W/MICROSCOPICon BACTERIA NONE SEEN Normal NONE SEEN [facility] Comment on above: Performed By: #### T 7, TSH, LIPID, CMP #### [facility] [address] [address] [address] Sona Cruz Bilirubin Ql (U) Negative Normal NEGATIVE [facility] Comment on above: Performed By: #### T 7, TSH, LIPID, CMP #### [facility] [address] [address] [address] Sona Cruz CAST NONE SEEN Normal NONE SEEN [facility] Comment on above: Performed By: #### T 7, TSH, LIPID, CMP #### [facility] [address] [place] [address] Dr. Sona Cruz Clarity (U) CLEAR Normal CLEAR [facility] Comment on above: Performed By: #### T 7, TSH, LIPID, CMP #### [facility] [address] [address] [address] Sona Cruz Color (U) LT. YELLOW Normal YELLOW [facility] Comment on above: Performed By: #### T 7, TSH, LIPID, CMP #### [facility] [address] [place] [address] Dr. Sona Cruz Crystals LM Nom (Urine sed) NONE SEEN Normal NONE SEEN [facility] Comment on above: Performed By: #### T 7, TSH, LIPID, CMP #### [facility] [address] [place] [address] Dr. Sona Cruz Epithelial cells LM Ql (Urine sed) FEW Abnormal NONE SEEN /RARE [facility] Comment on above: Performed By: #### T 7, TSH, LIPID, CMP #### [facility] [address] [place] [address] Dr. Sona Cruz Glucose Ql (U) Negative Normal NEGATIVE [facility] Comment on above: Performed By: #### T 7, TSH, LIPID, CMP #### [facility] [address] [place] [address] Dr. Sona Cruz Hemoglobin Ql (U) Negative Normal NEGATIVE [facility] Comment on above: Performed By: #### T 7, TSH, LIPID, CMP #### [facility] [address] [place] [address] Dr. Sona Cruz Ketones Ql (U) Negative Normal NEGATIVE [facility] Comment on above: Performed By: #### T 7, TSH, LIPID, CMP #### [facility] [address] [place] [address] Dr. Sona Cruz LEUKOCYTES Negative Normal NEGATIVE [facility] Comment on above: Performed By: #### T 7, TSH, LIPID, CMP #### [facility] [address] [place] [address] Dr. Sona Cruz MUCOUS NONE SEEN Normal NONE SEEN [facility] Comment on above: Performed By: #### T 7, TSH, LIPID, CMP #### [facility] [address] [address] [address] Sona Cruz Nitrite Ql (U) Negative Normal NEGATIVE [facility] Comment on above: Performed By: #### T 7, TSH, LIPID, CMP #### [facility] [address] [address] [address] Sona Cruz pH (U) 6.0 [pH] Normal 5-9 [facility] Comment on above: Performed By: #### T 7, TSH, LIPID, CMP #### [facility] [address] [address] [address] Sona Cruz RBC 0-2 Normal 0-2 [facility] Comment on above: Performed By: #### T 7, TSH, LIPID, CMP #### [facility] [address] [address] [address] Sona Cruz SPEC GRAVITY 1.020 Normal 1.005-<=1.025 [facility] Comment on above: Performed By: #### T 7, TSH, LIPID, CMP #### [facility] [address] [address] [address] Sona Cruz UA PROTEIN Negative Normal NEGATIVE/ TRACE [facility] Comment on above: Performed By: #### T 7, TSH, LIPID, CMP #### [facility] [address] [address] [address] Sona Cruz Urobilinogen Qn (U) 0.2 {Dayanna'U}/dL Normal 0.2 - 1. 0 [facility] Comment on above: Performed By: #### T 7, TSH, LIPID, CMP #### [facility] [address] [address] [address] Sona Cruz WBC 0-2 Abnormal NONE SEEN [facility] Comment on above: Performed By: #### T 7, TSH, LIPID, CMP #### [facility] [address] [address] [address] Sona Cruz ANTISTREPTOLYSIN O AB (ASO)o n 05-18-2022 Antistreptolysin O Ab 866.8 IU/mL Critically high 0.0-200. 0 [facility] Comment on above: Result Comment: Resu lts confirmed on dilution. Performed By: #### T 7, TSH, LIPID, CMP #### [facility] [address] [place] [address] Dr. Sona Cruz CBC AUTO DIFFon 05-17-2022 BASO # 0.1 103/ul Normal 0.0-0.1 [facility] Comment on above: Performed By: #### T 7, TSH, LIPID, CMP #### [facility] [address] [place] [address] Dr. Sona Cruz Basophils/100 WBC (Bld) 0.6 % Normal 0.2-2.0 [facility] Comment on above: Performed By: #### T 7, TSH, LIPID, CMP #### [facility] [address] [place] [address] Dr. Sona Cruz EO # 0.2 103/ul Normal 0.0-0.7 [facility] Comment on above: Performed By: #### T 7, TSH, LIPID, CMP #### [facility] [address] [place] [address] Dr. Sona Cruz Eosinophils/100 WBC (Bld) 1.8 % Normal 0.9-7.0 [facility] Comment on above: Performed By: #### T 7, TSH, LIPID, CMP #### [facility] [address] [place] [address] Dr. Sona Cruz Erythrocyte distribution width (RBC) [Ratio] 14.2 % Normal 11.0-15.0 [facility] Comment on above: Performed By: #### T 7, TSH, LIPID, CMP #### [facility] [address] [place] [address] Dr. Sona Cruz Hematocrit (Bld) [Volume fraction] 44.7 % Normal 36.0-48.0 [facility] Comment on above: Performed By: #### T 7, TSH, LIPID, CMP #### [facility] [address] [place] [address] Dr. Sona Cruz Hemoglobin (Bld) [Mass/Vol] 14.4 g/dL Normal 12.0-16.0 [facility] Comment on above: Performed By: #### T 7, TSH, LIPID, CMP #### [facility] [address] [address] [address] Sona Cruz IG # 0.09 10e3/ul Critically high 0.00-0.03 [facility] Comment on above: Performed By: #### T 7, TSH, LIPID, CMP #### [facility] [address] [place] [address] Dr. Sona Cruz IG % 0.7 % Critically high 0.0-0.5 [facility] Comment on above: Performed By: #### T 7, TSH, LIPID, CMP #### [facility] [address] [place] [address] Dr. Sona Cruz LYMPH # 2.2 103/ul Normal 1.2-3.8 [facility] Comment on above: Performed By: #### T 7, TSH, LIPID, CMP #### [facility] [address] [place] [address] Dr. Sona Cruz Lymphocytes/100 WBC (Bld) 17.2 % Critically low 20.5-60.0 [facility] Comment on above: Performed By: #### T 7, TSH, LIPID, CMP #### [facility] [address] [place] [address] Dr. Sona Cruz MANUAL DIFF REQ NO Normal [facility] Comment on above: Performed By: #### T 7, TSH, LIPID, CMP #### [facility] [address] [place] [address] Dr. Sona Cruz MCH (RBC) [Entitic mass] 28.7 pg Normal 26.7-34.0 [facility] Comment on above: Performed By: #### T 7, TSH, LIPID, CMP #### [facility] [address] [place] [address] Dr. Sona Cruz MCHC (RBC) [Mass/Vol] 32.2 g/dL Normal 29.9-35.2 [facility] Comment on above: Performed By: #### T 7, TSH, LIPID, CMP #### [facility] [address] [place] [address] Dr. Sona Cruz MCV (RBC) [Entitic vol] 89.0 fL Normal 81.0-99.0 [facility] Comment on above: Performed By: #### T 7, TSH, LIPID, CMP #### [facility] [address] [place] [address] Dr. Sona Cruz MONO # 0.9 103/ul Critically high 0.3-0.8 [facility] Comment on above: Performed By: #### T 7, TSH, LIPID, CMP #### [facility] [address] [place] [address] Dr. Sona Cruz Monocytes/100 WBC (Bld) 6.5 % Normal 1.7-12.0 [facility] Comment on above: Performed By: #### T 7, TSH, LIPID, CMP #### [facility] [address] [place] [address] Dr. Sona Cruz NEUT # 9.5 103/ul Critically high 1.4-6.5 [facility] Comment on above: Performed By: #### T 7, TSH, LIPID, CMP #### [facility] [address] [place] [address] Dr. Sona Cruz Neutrophils/100 WBC (Bld) 73.2 % Normal 43.0-75.0 [facility] Comment on above: Performed By: #### T 7, TSH, LIPID, CMP #### [facility] [address] [place] [address] Dr. Sona Cruz Platelet mean volume (Bld) [Entitic vol] 10.5 fL Normal 9.5-13.5 [facility] Comment on above: Performed By: #### T 7, TSH, LIPID, CMP #### [facility] [address] [place] [address] Dr. Sona Cruz PLT 319 103/ul Normal 150-450 [facility] Comment on above: Performed By: #### T 7, TSH, LIPID, CMP #### [facility] [address] [place], [place] [id number] Dr. Sona Cruz RBC 5.02 106/ul Normal 4.20-5.40 [facility] Comment on above: Performed By: #### T 7, TSH, LIPID, CMP #### [facility] [address] [place] [address] Dr. Sona Cruz WBC 13.0 103/ul Critically high 4.0-11.[address] [facility] Comment on above: Performed By: #### T 7, TSH, LIPID, CMP #### [facility] [address] [place] [address] Dr. Sona Cruz CRPon 05-17-2022 CRP [Mass/Vol] mg/L Normal <=1.0 [facility] Comment on above: Performed By: #### T 7, TSH, LIPID, CMP #### [facility] [address] [place] [address] Dr. Sona Cruz CULTURE BLOODon 05-17-2022 Microscopic examination of blood, culture Culture Observations: NO GROWTH AT 5 DAYS. Normal [facility] Comment on above: Performed By: #### B LDCX2 #### [facility] [address] [place] [address] Dr. Sona Cruz Microscopic examination of blood, culture Culture Observations: NO GROWTH AT 5 DAYS. Normal [facility] Comment on above: Performed By: #### B LDCX1 #### [facility] [address] [place] [address] Dr. Sona Cruz SED RATE WESTERGRENon 2021 SED RATE 54 mm/hr Critically high <=30 [facility] Comment on above: Performed By: #### T 7, TSH, LIPID, CMP #### [facility] [address] [place] [address] Dr. Sona Cruz MRI LSPINE WO CONon [...] YUNIOR ROBBINS Date: 2022-05-06 15:01 Normal [facility] MG MAMM SCREEN 3D CESAR CADon 04-15-2022 MG MAMM SCREEN 3D CESAR CAD Patient: SYLVIE ALTAMIRANO Exam Date: 04/15/2022 : 1970 Gender:F Ordering : DR ELEUTERIO CARRANZA . Admission #: [id number] Family : Order #: [id number] CLICK HERE TO VIEW EXAM RADIOLOGY REPORT PROCEDURE: MAMMOGRAM SCREENING 3D BILATERAL CAD COMPARISON: None. INDICATIONS: Screening mammography Calculator Name NCI Breast Cancer Risk Assessment Tool 5 Year Breast Cancer Risk 0.80% Lifetime Breast Cancer Risk 7.10% Personal Breast Cancer No Personal Ovarian Cancer No Treatments None Family Cancers Sister with colon cancer at age 34. LOCATION: [facility] BREAST COMPOSITION: Almost entirely fatty. FINDINGS: [...] Hickey MD on 04/15/2022 at 14:17 Normal [facility] ECHOCARDIO M/2D COMPLETEon 1 ECHOCARDIO M/2D COMPLETE Patient: SYLVIE ALTAMIRANO Exam Date: 04/08/2022 : 1970 Gender:F Ordering : DR ELEUTERIO CARRANZA . Admission #: [id number] Family : Order #: [id number] CLICK HERE TO VIEW EXAM ECHOCARDIOGRAM REPORT [...] Lazaro M.D. on 04/13/2022 at 11:32 Normal [facility] SLE PROFILE Aon 04-01-2022 Anti-DNA (DS) Ab Qn 1 IU/mL Normal 0-9 [facility] Comment on above: Result Comment: Nega tive <5 Equivocal 5 - 9 Positive >9 Performed By: #### T 7, TSH, LIPID, CMP #### [facility] [address] [address] [address] Sona Cruz Antichromatin Antibodies <0.2 Normal 0.0-0.9 [facility] Comment on above: Performed By: #### T 7, TSH, LIPID, CMP #### [facility] [address] [place] [address] Dr. Sona Cruz RA Latex Turbid. <10.0 Normal <14.[address] [facility] Comment on above: Performed By: #### T 7, TSH, LIPID, CMP #### [facility] [address] [place] [address] Dr. Sona Cruz DIVISION ORDER TECHNICIAN Antibodies 0.2 AI Normal 0.0-0.9 [facility] Comment on above: Performed By: #### T 7, TSH, LIPID, CMP #### [facility] [address] [place] [address] Dr. Sona Cruz Sjogrольга's Anti-SS-A <0.2 Normal 0.0-0.9 [facility] Comment on above: Performed By: #### T 7, TSH, LIPID, CMP #### [facility] [address] [place] [address] Dr. Sona Cruz Sjogrольга's Anti-SS-B <0.2 Normal 0.0-0.9 [facility] Comment on above: Performed By: #### T 7, TSH, LIPID, CMP #### [facility] [address] [place] [address] Dr. Sona Cruz Judd Antibodies <0.2 Normal 0.0-0.[address] [facility] Comment on above: Performed By: #### T 7, TSH, LIPID, CMP #### [facility] [address] [place] [address] Dr. Sona Cruz REGGIE by IFAon 03-31-2022 Antinuclear Antibodies, IFA Negative Normal [facility] Comment on above: Result Comment: Nega tive <1:80 Borderline 1:80 Positive >1:80 ICAP nomenclature: AC-0 For more information about Hep-2 cell patterns use ANApatterns.org, the official website for the International Consensus on Antinuclear Antibody (REGGIE) Patterns (ICAP). Performed By: #### T 7, TSH, LIPID, CMP #### [facility] [address] [place] [address] Dr. Sona Cruz RHEUMATOID FACTORon 03-31-20 RA Latex Turbid. <10.0 Normal <14.0 [facility] Comment on above: Performed By: #### T 7, TSH, LIPID, CMP #### [facility] [address] [place] [address] Dr. Sona Cruz ANTISTREPTOLYSIN O AB (ASO)o n 03-30-2022 Antistreptolysin O Ab 1118.1 IU/mL Critically high 0.0-200 .0 [facility] Comment on above: Result Comment: Resu lts confirmed on dilution. Performed By: #### T 7, TSH, LIPID, CMP #### [facility] [address] [place] [address] Dr. Sona Cruz DANIELLE-GARCIA VIRUS (EBV) AB PROFILEon 03-30-2022 EBV Ab VCA, IgG 57.9 U/mL Critically high 0.0-17.9 [facility] Comment on above: Result Comment: Nega tive <18.0 Equivocal 18.0 - 21.9 Positive >21.9 Performed By: #### T 7, TSH, LIPID, CMP #### [facility] [address] [place] [address] Dr. Sona Cruz EBV Ab VCA, IgM <36.0 Normal 0.0-35.9 [facility] Comment on above: Result Comment: Nega tive <36.0 Equivocal 36.0 - 43.9 Positive >43.9 Performed By: #### T 7, TSH, LIPID, CMP #### [facility] [address] [place] [address] Dr. Sona Cruz EBV Nuclear Antigen Ab, IgG 135.0 U/mL Critically high 0.0-17.9 [facility] Comment on above: Result Comment: Nega tive <18.0 Equivocal 18.0 - 21.9 Positive >21.9 Performed By: #### T 7, TSH, LIPID, CMP #### [facility] [address] [place], [place] [address] Dr. Sona Cruz Interpretation: Comment Normal [facility] Comment on above: Result Comment: [...] #### T 7, TSH, LIPID, CMP #### [facility] [address] [place], [place] [address] Dr. Sona Cruz XR KNEE CESAR 4V [...] by: YUNIOR ROBBINS Date: 2022-03-30 07:05 Normal [facility] XR LSPINE MIN 4 VIEWSon 03-12 [...] YUNIOR ZIMARILOUDONALD Date: 2022-03-30 07:13 Normal [facility] CRPon 03-29-2022 CRP 1.4 mg/dL Critically high <=1.0 [facility] Comment on above: Performed By: #### T 7, TSH, LIPID, CMP #### [facility] [address] [address] [address] Sona Cruz FREE THYROXINE INDEX T7on FTI 2.62 Normal 1.30-4.50 [facility] Comment on above: Performed By: #### T 7, TSH, LIPID, CMP #### [facility] [address] [place] [address] Dr. Sona Cruz T3U 34.0 % Normal 30.0-39.0 [facility] Comment on above: Performed By: #### T 7, TSH, LIPID, CMP #### [facility] [address] [address] [address] Sona Cruz T4 [Mass/Vol] 7.70 ug/dL Normal 4.80-13.90 [facility] [place] [facility] Comment on above: Performed By: #### T 7, TSH, LIPID, CMP #### [facility] [address] [address] [address] S[facility] Cruz [facility] SED [facility]ATE 48 mm/hr Critically high <=30 [facility] Comment on above: Performed By: #### T 7, TSH, LIPID, CMP #### [facility] [address] [place] [address] Dr. Sona Cruz TSHon 03-29-2022 TSH 2.577 uIU/mL Normal 0.358-3.740 [facility] [place] [facility] Comment on above: Performed By: #### T 7, TSH, LIPID, CMP #### [facility] [address] [place] [address] Dr. Sona Cruz URIC ACID SERUMon 03-29-2022 Urate [Mass/Vol] 4.2 mg/dL Normal 2.6-6.0 [facility] Comment on above: Performed By: #### T 7, TSH, LIPID, CMP #### [facility] [address] [address] [address] Sona Cruz CHEMISTRYOrdered By: SYSTEM SYSTEM [...] jacome 03-05-2024 09:25-0400 Blood Pressure Location Nica [employer] [facility] [place] 03-05-2024 09:25-0400 Diastolic blood pressure 81 mm[Hg] Nica FRANCOL [facility] [place] 03-05-2024 09:25-0400 Heart rate 114 /min Nica [employer] [facility] [place] 03-05-2024 09:25-0400 Respiratory rate 16 /min Nica FRANCOL [facility] [place] 03-05-2024 09:25-0400 Systolic blood pressure 134 mm[Hg] Nica FRANCOL [facility] [place] 05-17-2022 13:43-0500 Blood Pressure Location Nica NILL [facility] 05-17-2022 13:43-0500 Diastolic blood pressure 86 mm[Hg] Nica NILL [facility] 05-17-2022 13:43-0500 Heart rate 72 /min Nica FRANCOL [facility] 05-17-2022 13:43-0500 Respiratory rate 16 /min Nica ISRAEL [facility] [place] 05-17-2022 13:43050 Systolic blood pressure 122 mm[Hg] Nica ISRAEL [facility] [place] Encounters Encounter Date Encounter Type Care Provider Facility Start: 03-05-2024 End: 03-05-2024 ambulatory Nica [facility] Facility: [facility] Start: 03-05-2024 End: 03-05-2024 Patient encounter procedure Nica ISRAEL [facility] [place] Start: 02-29-2024 ambulatory Nica ISRAEL Facility:[facility] [place] Start: 10-26-2022 End: 10-26-[address] ELEUTERIO CARRANZA . Facility:[facility] Start: 09-30-2022 End: 10-01-[address] ELEUTERIO CARRANZA . Facility:[facility] Start: 08-12-2022 End: 08-13-[address] ELEUTERIO CARRANZA . Facility:[facility] Start: 06-22-2022 End: 06-22-[address] NICA ISRAEL . Facility:[facility] Start: 06-20-2022 Encounter for preprocedural laboratory examination DR ELEUTERIO CARRANZA . [facility] Start: 06-17-2022 End: 06-18-2022 Encounter for preprocedural laboratory examination DR ELEUTERIO CARRANZA . Facility:[facility] Start: 06-17-2022 End: 06-18-[address] ELEUTERIO CARRANZA . Facility:[facility] Start: 05-17-2022 End: 05-18-[address] ELEUTERIO CARRANZA . Facility:[facility] Start: 05-17-2022 End: 05-17-2022 Patient encounter procedure Nica ISRAEL [facility] [place] Start: 05-06-2022 End: 05-07-[address] ELEUTERIO [...] 02-17-2022 Patient encounter procedure Eleuterio Carranza [facility] Start: 01-17-2022 End: 04-17-2022 Recurring AYAAN BAH [facility] Procedures Date Procedure Procedure Detail Performing Clinician Start: 06-22-2022 Colonoscopy Nica NI LL Start: 08-10-2011 Colonoscopy Nica NI LL Appendectomy Nica NILL Cholecystectomy Nica NILL Colonoscopy Nica NILL Dilation and curettage Yeison FRANCOL Exploratory laparotomy Yeison FRANCOL Total hysterectomy v ia vaginal approach Nica FRANCOL Immunizations Immunization Date Immunization Notes Care Provider Fa cility 05-16-2021 SARS-CoV-2 (COVID-19 ) mRNA-[address] [facility] [place] 04-29-2021 SARS-CoV-2 (COVID-19 ) Ad26 vaccine, recombinant Nica SALVADORL [facility] [place] NEGATED: Highlighted row has not occurred!05-17-2022 influenza virus vaccine, unspecified formulation Nica ISRAEL [facility] [place] Payers Date Payer Category Payer Unknown [id number] 2.16.84 [id number] 1970 Unknown [id number] 2.16.84 [id number] 1970 Unknown [id number] 2.16.84 [id number] 1971 Unknown [id number] 2.16.84 [id number] 1971 Unknown [id number] 2.16.84 [id number] 1971 Unknown [id number] 2.16.84 [id number] 1971 Unknown [id number] 2.16.84 0.1.327275.3.579.2.593 1971 Unknown [id number] 2.16.84 0.1.903672.3.579.2.593 1971 Unknown [id number] 2.16.84 0.1.440365.3.579.2.593 1971 Unknown [id number] 2.16.84 0.1.357574.3.579.2.593 1971 Unknown [id number] 2.16.84 0.1.980666.3.579.2.593 1971 Unknown [id number] 2.16.84 0.1.991815.3.579.2.593 1971 Unknown [id number] 2.16.84 0.1.122087.3.579.2.593 1971 Unknown [id number] 2.16.84 0.1.016104.3.579.2.593 1971 Unknown [id number] 2.16.84 0.1.030319.3.579.2.593 1971 Unknown [id number] 2.16.8 [id number] 1958 Self-pay 1958 Unknown [id number] 1958 Unknown [id number] Social History Date Type Detail Facility Tobacco [facility] Comment on above: denies Sex Assigned At Female [facility] Tobacco smoking status No Smokin g Status Entered [facility] Start: 05-17-2022 Tobacco smoking status Heavy t obacco smoker (finding) [facility] [place] Tobacco smoking status Never [facility] [place] Start: 03-05-2024 Tobacco smoking status Light t obacco smoker (finding) [facility] [place] Functional Status Date Assessment Result Facility 03-05-2024 Functional Status N/A [facility] [place] [facility] [place] 05-17-2022 Functional Status N/A [facility] Clinical Note 03-05-2024 Note Date & [...] Recorded SARS-CoV-2 (COVID-19) Ad26 vaccine 04/29/2021 Recorded [facility] Comment on above: Result Comment: Elec [...] pathology results. CC: Eleuterio Carranza M.D. [facility] Evaluation + Plan note 02-17-2022 Note Date & Type Note Facility 02-17-2022 Evaluation + Plan note Diagnostic Tests PendingInsulin Level Total 02/17/22 [facility] Evaluation + Plan note Note Date & Type Note Facility Evaluation + Plan note Future Appointments Appointment Date:04/29/2022 01:00:00 PM Scheduled Provider:Nica ISRAEL MD Location:[facility] Appointment Type:[address] Hospital course Narrative Note Date & Type Note Facility Hospital course Narrative No data available for this section [facility] Hospital Discharge instructions Note Date & Type Note Facility Hospital Discharge instructions No data available for this section [facility] Progress note Note Date & Type Note Facility Progress note No data available for this section [facility] Summary Purpose Family History No Family History Records Found No data available for this section No Family History Records Found Advance Directives No Advanced Directives Records FoundNo Advanced Directives Records Found Additional Source Comments Care Team (unrecognized sect ion and content) Personnel Name: Eleuterio Carranza MD Address: [address] [place] [address] Personnel Name: Eleuterio Carranza MD Address: Address: [address] [place] [address] Personnel Name: Eleuterio Carranza MD Address: Address: [address] [place] [address] Personnel Name: Eleuterio Carranza MD Address: Address: [address] [place] [address] INFORMATION SOURCE (unrecogn ized section and content) DATE CREATED AUTHOR 10/27/2022 [facility] DATE CREATED AUTHOR AUTHOR'S ORGANIZ ATION 03/07/2024 [facility] FOR RECORDS PERTAINING TO PATIENTS WHO [...] BE BASED ON THE PRIMARY CLINICAL RECORDS. [facility] [employer] [facility]. provides no warranty or guarantee of the accuracy or completeness of information in this document.
[2025-03-31 17:12] LABS: Creatine Kinase 24 U/L (26-192); Uric Acid 6.7 mg/dL (2.6-6.0)
[2025-04-03 11:09] LABS: Antinuclear Antibodies, IFA Negative (.)
== END 2025-03-31 16:33 | disposition home or self-care (01) ==
PROVIDERS: PCP Family Medicine; Visit Provider Family Medicine
DX: R89.9 Unspecified abnormal finding in specimens from other organs, systems and tissues (principal); R53.83 Other fatigue
CPT/HCPCS: 36415; 82550; 84550; 86038; 86060; 86140; 86431